=== PATIENT | female | born 1945 | race Caucasian/White ===

== ENCOUNTER → 2023-12-06 | Outpatient (CLI) | payer MEDICARE, OTHER ==
[2023-12-06 12:04] LABS: African American GFR (CKD) >90 (>60 ml/min/1.73 sqM); Blood Urea Nitrogen 16 mg/dL (7-17); Non-African American GFR(CKD) 87 (>60 ml/min/1.73 sqM)
--- NOTE | 2023-12-06 14:06 | CT ---
EXAMINATION TYPE: CT chest w con CT DLP: 290.40 mGycm, Automated exposure control for dose reduction was used. DATE OF EXAM: 12/06/2023 12:30 PM COMPARISON: Chest radiograph 09/03/2023 CLINICAL INDICATION:Female, 78 years old with history of J44.9 CHRONIC OBSTRUCTIVE PULMONARY DISEASE, UNSPE; PHH, COPD TECHNIQUE: Multiple axial images were obtained through the chest following the administration of 100 cc of Isovue 300. . Coronal and sagittal reformats reviewed. FINDINGS: LUNGS/ PLEURA: No pleural effusion, pneumothorax, or focal consolidation. Moderate centrilobular emph ysematous changes. No suspicious pulmonary nodule or mass. AIRWAY: Patent and unremarkable.. HEART: Mildly enlarged. Trace pericardial effusion anteriorly. MEDIASTINUM: A few enlarged mediastinal lymph nodes with examples including a subcarinal lymph node m easuring 1.2 cm short axis (series 3, image 32) and right superior right hilar lymph node measuring 1 .3 cm short axis (series 3, image 29). VASCULATURE: Atherosclerotic calcification of the aorta and is branches. Ascending thoracic aortic a neurysm measuring up to 4.6 cm. No extension into the aortic arch. The descending thoracic aorta moises ures up to 2.5 cm. The aortic root measures up to 3.7 cm. No evidence of pulmonary embolism. There is dilatation of main pulmonary artery measuring up to 3.6 cm. MUSCULOSKELETAL: No acute osseous abnormalities. No aggressive osseous lesion. SOFT TISSUES/LYMPH NODES: Unremarkable. LOWER NECK: No significant findings. UPPER ABDOMEN: Left hepatic lobe 1.1 cm cyst. Retrocaval left renal vein. IMPRESSION: 1. No acute thoracic process. 2. Moderate COPD changes. 3. Ascending thoracic aortic aneurysm measuring up to 4.6 cm. 4. Nonspecific enlarged mediastinal and right hilar lymph nodes. 5. Dilated main pulmonary artery which could be seen in the setting of pulmonary arterial hypertensio n.
== END | disposition home or self-care (01) ==
LOC: RADCTMAIN 11:14
PROVIDERS: ATTEND Internal Medicine Critical Care Medicine
DX: J44.9 Chronic obstructive pulmonary disease, unspecified (principal); I71.21 Aneurysm of the ascending aorta, without rupture
CPT/HCPCS: 82565; 84520; 71260; 36415; Q9967

== ENCOUNTER 2024-08-30 14:23 | Inpatient (IN) | payer MEDICARE, OTHER ==
--- NOTE | 2024-08-30 15:06 | ED ---
General Adult HPI - General Chief complaint: Shortness of Breath Stated complaint: SOB Time Seen by Provider: 08/30/24 14:41 Source: patient Mode of arrival: ambulatory Limitations: no limitations - History of Present Illness Initial comments: Patient is an 78-year-old female past medical history of COPD on home 3 L oxygen nasal cannula, alpha-1 antitrypsin deficiency presenting today at the direction of her capture manager, Dr. Parnell for shortness of breath and hypoxemia. History provided by friend and patient at bedside they state that patient has had worsening lower extremity swelling and shortness of breath ever since having RSV 2 months ago. She was seen by her capture manager Dr. Riggs and today when she had a pulse ox of 78% while in the office and was sent here for further evaluation and admission. Of note discharge summary from Dr. Riggs in's office states that patient should have an ultrasound of the lower extremities, CT PE study if kidney function tolerates, Lasix if kidney function allows, steroids, breathing treatments. Patient is not on blood thinners. No history of prior PE. - Related Data Home Medications Medication Instructions Recorded Confirmed ALPRAZolam [Xanax] 0.25 - 0.5 mg PO BID PRN 08/30/24 08/30/24 Albuterol Nebulized [Ventolin 2.5 mg INHALATION RT-QID 08/30/24 08/30/24 Nebulized] Albuterol Sulfate [Albuterol 2 puff PO RT-Q4H PRN 08/30/24 08/30/24 Sulfate Hfa] Budesonide [Pulmicort] 0.5 mg INHALATION RT-BID 08/30/24 08/30/24 Escitalopram Oxalate [Lexapro] 10 mg PO HS 08/30/24 08/30/24 Formoterol Fumarate [Perforomist] 20 mcg INHALATION RT-BID 08/30/24 08/30/24 Losartan-Hctz 50-12.5 mg [Hyzaar 1 tab PO HS 08/30/24 08/30/24 50-12.5] NIFEdipine XL [Procardia Xl] 30 mg PO HS 08/30/24 08/30/24 Yupelri 175mcg/3ml 175 mcg INHALATION RT-DAILY 08/30/24 08/30/24 Allergies Allergy/AdvReac Type Severity Reaction Status Date / Time Penicillins Allergy red streak Verified 08/30/24 17:43 up back of neck lorazepam [From Ativan] AdvReac pain all Verified 08/30/24 17:43 over & insomnia prednisolone AdvReac insomnia Verified 08/30/24 17:43 Review of Systems ROS Statement: Those systems with pertinent positive or pertinent negative responses have been documented in the HPI. ROS Other: All systems not noted in ROS Statement are negative. Past Medical History Past Medical History: COPD, Hypertension History of Any Multi-Drug Resistant Organisms: None Reported Past Surgical History: No Surgical Hx Reported Past Psychological History: No Psychological Hx Reported Smoking Status: Former smoker Past Alcohol Use History: None Reported Past Drug Use History: None Reported General Exam Limitations: no limitations Course Vital Signs 08/30/24 08/30/24 08/30/24 14:36 15:05 15:11 Temperature 98.7 F Pulse Rate 86 74 Respiratory 17 Rate Blood Pressure 109/72 O2 Sat by Pulse 78 L 95 Oximetry Fraction of 60 Inspired Oxygen (FIO2) 08/30/24 08/30/24 08/30/24 15:16 15:36 15:45 Temperature Pulse Rate 74 74 78 Respiratory 20 Rate Blood Pressure 102/76 O2 Sat by Pulse 91 L Oximetry Fraction of Inspired Oxygen (FIO2) 08/30/24 08/30/24 08/30/24 17:00 18:00 19:00 Temperature Pulse Rate 74 79 84 Respiratory 22 24 22 Rate Blood Pressure 113/73 119/80 134/70 O2 Sat by Pulse 94 L 91 L 92 L Oximetry Fraction of Inspired Oxygen (FIO2) 08/30/24 08/30/24 20:15 20:40 Temperature Pulse Rate 86 Respiratory 18 Rate Blood Pressure 110/85 O2 Sat by Pulse 91 L 89 L Oximetry Fraction of 61 Inspired Oxygen (FIO2) EKG Findings - EKG Comments: EKG Findings:: Significant artifact limiting interpretation, low voltage EKG, rate 75 bpm NE interval 160 ms QT/QTc 370/399 ms, borderline right axis deviation, there is no clear ST elevations or depressions no STEMI, indeterminate EKG Medical Decision Making - Medical Decision Making Was pt. sent in by a medical professional or institution (, PA, [employer], urgent care, hospital, or senior care...) When possible be specific @ -[No] Did you speak to anyone other than the patient for history (EMS, parent, family, police, friend...)? What history was obtained from this source @ -[No] Did you review nursing and triage notes (agree or disagree)? Why? @ -[I reviewed nursing and triage notes] Were old charts reviewed (outside hosp., previous admission, EMS record, old EKG, old radiological studies, urgent care reports/EKG's, senior care records)? Report findings @ -[Medical records reviewed] Differential Diagnosis (chest pain, altered mental status, abdominal pain women, abdominal pain men, vaginal bleeding, weakness, fever, dyspnea, syncope, headache, dizziness, GI bleed, back pain, seizure, CVA, palpatations, mental health, musculoskeletal)? @ -[not applicable] EKG interpreted by me (3pts min.). @ -[As above] X-rays interpreted by me (1pt min.). @ -[None done] CT interpreted by me (1pt min.). @ -[None done] U/S interpreted by me (1pt. min.). @ -[None done] What testing was considered but not performed or refused? (CT, X-rays, U/S, labs)? Why? @ -[None] What meds were considered but not given or refused? Why? @ -[None] Did you discuss the management of the patient with other professionals (professionals i.e. , PA, [employer], lab, RT, psych nurse, social work lecturer, packerhead machine operator, teacher, building drafting officer, patient case manager)? Give summary @ -[No] Was smoking cessation discussed for >3mins.? @ -[No] Was critical care preformed (if so, how long)? @ -[No] Were there social determinants of health that impacted care today? How? (Homelessness, low income, unemployed, alcoholism, drug addiction, transportatio n, low edu. Level, literacy, decrease access to med. care, [facility], rehab)? @ -[No] Was there de-escalation of care discussed even if they declined (Discuss DNR or withdrawal of care, Hospice)? @ -[No] What co-morbidities impacted this encounter? (DM, HTN, Smoking, COPD, CAD, Cancer, CVA, ARF, Chemo, Hep., AIDS, mental health diagnosis, sleep apnea, morbid obesity)? @ -[None] Was patient admitted / discharged? Hospital course, mention meds given and route, prescriptions, significant lab abnormalities, going to OR and other pertinent info. @ -[hospital course] this is an 78-year-old female past medical history of COPD on oxygen 3 L nasal cannula at baseline, no known history of CHF presenting t pan for CT PE significant negative for pulmonary embolism, of note I did discuss with Dr. Durant there is a's soft tissue mass on the right lateral neck, was present on a previous CT scan as well. No, from radiologist, patient does have a soft palpable mobile mass on exam without overlying erythema, tenderness to palpation or bruit. Patient will be admitted for new onset congestive heart failure. Treated with L 80 mg IV Lasix Undiagnosed new problem with uncertain prognosis? @ -[No] Drug Therapy requiring intensive monitoring for toxicity (Heparin, Nitro, Insulin, Cardizem)? @ -[No] Were any procedures done? @ -[No] Diagnosis/symptom? @ -[default] Acute, or Chronic, or Acute on Chronic? @ -[default] Uncomplicated (without systemic symptoms) or Complicated (systemic symptoms)? @ -[default] Side effects of treatment? @ -[No] Exacerbation, Progression, or Severe Exacerbation? @ -[No] Poses a threat to life or bodily function? How? (Chest pain, USA, PR, pneumonia, PE, COPD, DKA, ARF, appy, cholecystitis, CVA, Diverticulitis, Homicidal, Suicidal, threat to staff... and all critical care pts) @ -[No] - Lab Data Result diagrams: 08/30/24 14:56 08/30/24 14:56 Lab Results 08/30/24 08/30/24 08/30/24 Range/Units 14:56 14:56 14:56 WBC 10.2 (3.8-10.6) k/uL RBC 5.72 H (3.80-5.40) m/uL Hgb 18.1 H (11.4-16.0) gm/dL Hct 55.4 H (34.0-46.0) % MCV 96.9 (80.0-100.0) fL MCH 31.6 (25.0-35.0) pg MCHC 32.6 (31.0-37.0) g/dL RDW 15.5 (11.5-15.5) % Plt Count 155 (150-450) k/uL MPV 9.2 Neutrophils % 89 % Lymphocytes % 4 % Monocytes % 5 % Eosinophils % 0 % Basophils % 0 % Neutrophils # 9.1 H (1.3-7.7) k/uL Lymphocytes # 0.4 L (1.0-4.8) k/uL Monocytes # 0.5 (0-1.0) k/uL Eosinophils # 0.0 (0-0.7) k/uL Basophils # 0.0 (0-0.2) k/uL Hypochromasia Slight PT 14.1 H (10.0-12.5) sec INR 1.3 H (<1.2) APTT 24.5 (22.0-30.0) sec Sodium 137 (137-145) mmol/L Potassium 3.6 (3.5-5.1) mmol/L Chloride 97 L (98-107) mmol/L Carbon Dioxide 29 (22-30) mmol/L Anion Gap 11 mmol/L BUN 39 H (7-17) mg/dL Creatinine 0.71 (0.52-1.04) mg/dL Est GFR (CKD-EPI)AfAm >90 (>60 ml/min/1.73 sqM) Est GFR (CKD-EPI)NonAf 81 (>60 ml/min/1.73 sqM) Glucose 112 H (74-99) mg/dL Lactic Ac Sepsis Rflx Plasma Lactic Acid Juan Luis (0.7-2.0) mmol/L Calcium 9.2 (8.4-10.2) mg/dL Magnesium 1.9 (1.6-2.3) mg/dL Total Bilirubin 1.9 H (0.2-1.3) mg/dL AST 26 (14-36) U/L ALT 16 (4-34) U/L Alkaline Phosphatase 81 (38-126) U/L Troponin I (0.000-0.034) ng/mL NT-Pro-B Natriuret Pep 76570 pg/mL Total Protein 6.9 (6.3-8.2) g/dL Albumin 3.8 (3.5-5.0) g/dL 08/30/24 08/30/24 08/30/24 Range/Units 14:56 14:56 15:27 WBC (3.8-10.6) k/uL RBC (3.80-5.40) m/uL Hgb (11.4-16.0) gm/dL Hct (34.0-46.0) % MCV (80.0-100.0) fL MCH (25.0-35.0) pg MCHC (31.0-37.0) g/dL RDW (11.5-15.5) % Plt Count (150-450) k/uL MPV Neutrophils % % Lymphocytes % % Monocytes % % Eosinophils % % Basophils % % Neutrophils # (1.3-7.7) k/uL Lymphocytes # (1.0-4.8) k/uL Monocytes # (0-1.0) k/uL Eosinophils # (0-0.7) k/uL Basophils # (0-0.2) k/uL Hypochromasia PT (10.0-12.5) sec INR (<1.2) APTT (22.0-30.0) sec Sodium (137-145) mmol/L Potassium (3.5-5.1) mmol/L Chloride (98-107) mmol/L Carbon Dioxide (22-30) mmol/L Anion Gap mmol/L BUN (7-17) mg/dL Creatinine (0.52-1.04) mg/dL Est GFR (CKD-EPI)AfAm (>60 ml/min/1.73 sqM) Est GFR (CKD-EPI)NonAf (>60 ml/min/1.73 sqM) Glucose (74-99) mg/dL Lactic Ac Sepsis Rflx Y Plasma Lactic Acid Juan Luis 2.8 H* (0.7-2.0) mmol/L Calcium (8.4-10.2) mg/dL Magnesium (1.6-2.3) mg/dL Total Bilirubin (0.2-1.3) mg/dL AST (14-36) U/L ALT (4-34) U/L Alkaline Phosphatase (38-126) U/L Troponin I 0.021 (0.000-0.034) ng/mL NT-Pro-B Natriuret Pep pg/mL Total Protein (6.3-8.2) g/dL Albumin (3.5-5.0) g/dL 08/30/24 08/30/24 Range/Units 16:33 18:22 WBC (3.8-10.6) k/uL RBC (3.80-5.40) m/uL Hgb (11.4-16.0) gm/dL Hct (34.0-46.0) % MCV (80.0-100.0) fL MCH (25.0-35.0) pg MCHC (31.0-37.0) g/dL RDW (11.5-15.5) % Plt Count (150-450) k/uL MPV Neutrophils % % Lymphocytes % % Monocytes % % Eosinophils % % Basophils % % Neutrophils # (1.3-7.7) k/uL Lymphocytes # (1.0-4.8) k/uL Monocytes # (0-1.0) k/uL Eosinophils # (0-0.7) k/uL Basophils # (0-0.2) k/uL Hypochromasia PT 12.5 (10.0-12.5) sec INR 1.2 H (<1.2) APTT 23.4 (22.0-30.0) sec Sodium (137-145) mmol/L Potassium (3.5-5.1) mmol/L Chloride (98-107) mmol/L Carbon Dioxide (22-30) mmol/L Anion Gap mmol/L BUN (7-17) mg/dL Creatinine (0.52-1.04) mg/dL Est GFR (CKD-EPI)AfAm (>60 ml/min/1.73 sqM) Est GFR (CKD-EPI)NonAf (>60 ml/min/1.73 sqM) Glucose (74-99) mg/dL Lactic Ac Sepsis Rflx Plasma Lactic Acid Juan Luis 2.9 H* (0.7-2.0) mmol/L Calcium (8.4-10.2) mg/dL Magnesium (1.6-2.3) mg/dL Total Bilirubin (0.2-1.3) mg/dL AST (14-36) U/L ALT (4-34) U/L Alkaline Phosphatase (38-126) U/L Troponin I (0.000-0.034) ng/mL NT-Pro-B Natriuret Pep pg/mL Total Protein (6.3-8.2) g/dL Albumin (3.5-5.0) g/dL Disposition Clinical Impression: New onset of congestive heart failure Disposition: ADMITTED IP TO THIS HOSP Condition: Stable
[2024-08-30] MEDS: IPRATROPIUM 0.5 MG/2.5 ML NEBU INHALATION STA (15:14)
[2024-08-30] MEDS: ALBUTEROL NEBULIZED 2.5 MG/3 ML INHALATION STA (15:14)
[2024-08-30 15:19] LABS: INR 1.3 (<1.2); Partial Thromboplastin Time 24.5 sec (22.0-30.0); Prothrombin Time 14.1 sec (10.0-12.5)
[2024-08-30 15:30] LABS: ALT 16 U/L (4-34); AST 26 U/L (14-36); African American GFR (CKD) >90 (>60 ml/min/1.73 sqM); Albumin 3.8 g/dL (3.5-5.0); Alkaline Phosphatase 81 U/L (38-126); Anion Gap 11 mmol/L; Blood Urea Nitrogen 39 mg/dL (7-17); Calcium 9.2 mg/dL (8.4-10.2); Carbon Dioxide 29 mmol/L (22-30); Chloride 97 mmol/L (98-107); Glucose 112 mg/dL (74-99); Magnesium 1.9 mg/dL (1.6-2.3); Non-African American GFR(CKD) 81 (>60 ml/min/1.73 sqM); Potassium 3.6 mmol/L (3.5-5.1); Sodium 137 mmol/L (137-145); Total Bilirubin 1.9 mg/dL (0.2-1.3); Total Protein 6.9 g/dL (6.3-8.2)
[2024-08-30 15:35] LABS: Basophils % (A) 0 %; Eosinophils % (A) 0 %; HGB 18.1 gm/dL (11.4-16.0); Hypochromasia Slight; Lymphocytes # (A) 0.4 k/uL (1.0-4.8); Lymphocytes % (A) 4 %; MCH 31.6 pg (25.0-35.0); MCHC 32.6 g/dL (31.0-37.0); MCV 96.9 fL (80.0-100.0); Mean Platelet Volume 9.2; Monocytes # (A) 0.5 k/uL (0-1.0); Monocytes % (A) 5 %; Neutrophils # (A) 9.1 k/uL (1.3-7.7); Neutrophils % (A) 89 %; Platelet Count 155 k/uL (150-450); RBC 5.72 m/uL (3.80-5.40); RDW 15.5 % (11.5-15.5); WBC 10.2 k/uL (3.8-10.6)
[2024-08-30 15:36] LABS: NT-Pro-B-Type Natriuretic Pept 14100 pg/mL
[2024-08-30 15:45] LABS: HCT 55.4 % (34.0-46.0)
[2024-08-30] MEDS: methylPREDNISolone SOD SUCCI 125 MG/2 ML VIAL IV STA (15:53)
[2024-08-30] MEDS: LORazepam 2 MG/ML INJ IV STA (15:54)
--- NOTE | 2024-08-30 16:12 | XR ---
EXAMINATION TYPE: XR chest 1V portable DATE OF EXAM: 08/30/2024 COMPARISON: Chest CT December 06, 2023 CLINICAL INDICATION: Female, 78 years old with history of LETY, edema; TECHNIQUE: Single frontal view of the chest is obtained. FINDINGS: Background chronic emphysematous change with new left basilar opacity. Right lung shows la teral right basilar linear atelectasis. Persisting cardiomegaly with atherosclerotic thoracic aorta. Osseous structures are intact. IMPRESSION: Cardiomegaly with small left pleural effusion and left basilar acute infiltrate and/or a telectasis noted. [facility], , 08/30/2024 4:10 PM
[2024-08-30 17:04] LABS: INR 1.2 (<1.2); Partial Thromboplastin Time 23.4 sec (22.0-30.0); Prothrombin Time 12.5 sec (10.0-12.5)
[2024-08-30] MEDS: FUROSEMIDE 10 MG/ML 10 ML VIAL IV STA (17:18)
--- NOTE | 2024-08-30 17:36 | CT ---
EXAMINATION TYPE: CT chest angio for PE DATE OF EXAM: 08/30/2024 COMPARISON: Chest CT December 06, 2023 CLINICAL INDICATION: Female, 78 years old with history of new LE edema, [id number] def., , TECHNIQUE: CTA scan of the thorax is performed with IV Contrast, patient injected with 80 mL of Isovue 370, pulm onary embolism protocol. MIP Images are created on CT scanner and reviewed. CT DLP: 280 mGycm. Automated Exposure Control for Dose Reduction was Utilized. FINDINGS: LUNGS: Moderate to advanced underlying emphysematous change is redemonstrated. There is new small lef t pleural effusion with associated compressive atelectasis in the left lung base. Right lung is clear . There is posterior basilar consolidation/atelectasis seen. HEART: Heart size mildly enlarged. There is moderate atrial dilatation. Moderate coronary artery calc ification is redemonstrated. Reflux of contrast into the hepatic veins and IVC suggests right heart f ailure. MEDIASTINUM: There is satisfactory enhancement of the pulmonary artery and its branches, there is no CT evidence for pulmonary embolism. There is a [id number] sized pericardial effusion measurin g up to 1.5 cm in thickness on axial image 116. There is an ascending aortic aneurysm up to 4.4 cm re demonstrated. Prominent pulmonary arteries raising concern for underlying pulmonary artery hypertensi on. OTHER: There is new moderate diffuse subcutaneous edema. IMPRESSION: 1. No CT evidence for acute pulmonary embolism. 2. New moderate dependent subcutaneous edema and new small left pleural effusion. Findings suggest CH F exacerbation/fluid overload state. 3. There is moderate to severe underlying emphysematous change redemonstrated. There is more prominen t small to moderate sized pericardial effusion on current study. [facility], , 08/30/2024 5:33 PM
--- NOTE | 2024-08-30 18:31 | US ---
EXAMINATION TYPE: US venous doppler duplex LE BI DATE OF EXAM: 08/30/2024 2:57 PM COMPARISON: CT chest CLINICAL INDICATION: Female, 78 years old with history of new LE edema; Pitting edema. Patient states she is retaining a lot of fluid. No hx dvt. Not on thinners. No pain or redness TECHNIQUE: The lower extremity deep venous system is examined utilizing real time linear array sonog karen with graded compression, color doppler sonography, and spectral doppler. SIDE PERFORMED: Bilateral FINDINGS: VESSELS IMAGED: Common Femoral Vein Deep Femoral Vein Greater Saphenous Vein * Femoral Vein Popliteal Vein Small Saphenous Vein * Proximal Calf Veins (* superficial vessels) exam somewhat limited due to edema Right Leg: Negative for DVT, Color Doppler imaging shows patency of the vessels. Spectral waveforms are within normal limits. Left Leg: Negative for DVT, Color Doppler imaging shows patency of the vessels. Spectral waveforms a re within normal limits. Some subcutaneous edema is present distally. IMPRESSION: No ultrasound evidence for acute deep venous thrombosis. [facility], , 08/30/2024 6:29 PM
[2024-08-30] MEDS ORDERED: ALBUTEROL NEBULIZED 2.5 MG/3 ML INHALATION PRN (20:15)
[2024-08-30] MEDS: ALPRAZolam 0.25 MG TAB PO STA (23:37)
[2024-08-30] MEDS: NIFEdipine XL 30 MG TAB.ER.24 PO SCH (23:39)
[2024-08-30] MEDS: ESCITALOPRAM 10 MG TAB PO SCH (23:39)
[2024-08-31] MEDS: ACETAMINOPHEN TAB 325 MG TAB PO PRN (02:47)
[2024-08-31] MEDS: ONDANSETRON 4 MG/2 ML VIAL IVP PRN (02:47)
[2024-08-31] MEDS: FUROSEMIDE 10 MG/ML 4 ML VIAL IV SCH (06:07)
--- NOTE | 2024-08-31 07:15 | P.CRDCN ---
History of Present Illness Consult date: 08/31/24 History of present illness: This is an 78-year-old female patient with no prior cardiac history but medical history significant for chronic hypoxic respiratory failure secondary to COPD and alpha 1 antitrypsin deficiency presented to the hospital with progressive exertional dyspnea associated with progressive bilateral lower extremity edema for the last few days. No symptoms of chest pain or chest discomfort but she felt she was experiencing severe congestions with no fever and no chills and no cough and no sputum production. No other cardiovascular symptoms of dizziness or lightheadedness or any feeling of heart racing or fluttering or presyncope or syncope. She developed severe bilateral lower extremities edema. When she presented to the hospital she was hypoxic requiring high flow oxygen. Normally she is on 2 L of oxygen continuously. Definitely her oxygen requirement has increased within the last few days and she has been doing pulse oximetry at home and noticed that her oxygen saturation has been low. She underwent further evaluation including EKG showing RBBB. NT proBNP came to be elevated at 5000. First set of troponin is unremarkable with chest x-ray showed finding consistent with pulmonary vascular congestions and left pleural effusion but CT scan of the chest showed no evidence of PE. Venous duplex study showed no evidence of DVT as well. The physical examination is remarkable for regular rhythm with a systolic murmur at the right and left upper sternal border with diminished breathing sounds bilaterally and bilateral rhonchi and severe bilateral lower extremities pitting edema Assessment Acute on chronic hypoxic respiratory failure Heart failure of unknown etiology with evidence of right and left failure History of hypoxic respiratory failure Multiple comorbid conditions Plan Continue the current dose of Lasix IV Hold Procardia and any blood pressure medications giving that she is having marginally low blood pressure Obtain echocardiogram with Doppler Obtain serial cardiac enzymes to rule out acute coronary syndrome Follow-up with the patient Past Medical History Past Medical History: COPD, Hypertension History of Any Multi-Drug Resistant Organisms: None Reported Past Surgical History: No Surgical Hx Reported Past Anesthesia/Blood Transfusion Reactions: No Reported Reaction Past Psychological History: Anxiety Smoking Status: Former smoker Past Alcohol Use History: None Reported Past Drug Use History: None Reported Medications and Allergies Home Medications Medication Instructions Recorded Confirmed Type ALPRAZolam [Xanax] 0.25 - 0.5 mg PO BID PRN 08/30/24 08/30/24 History Albuterol Nebulized [Ventolin 2.5 mg INHALATION RT-QID 08/30/24 08/30/24 History Nebulized] Albuterol Sulfate [Albuterol 2 puff PO RT-Q4H PRN 08/30/24 08/30/24 History Sulfate Hfa] Budesonide [Pulmicort] 0.5 mg INHALATION RT-BID 08/30/24 08/30/24 History Escitalopram Oxalate [Lexapro] 10 mg PO HS 08/30/24 08/30/24 History Formoterol Fumarate [Perforomist] 20 mcg INHALATION RT-BID 08/30/24 08/30/24 History Losartan-Hctz 50-12.5 mg [Hyzaar 1 tab PO HS 08/30/24 08/30/24 History 50-12.5] NIFEdipine XL [Procardia Xl] 30 mg PO HS 08/30/24 08/30/24 History Yupelri 175mcg/3ml 175 mcg INHALATION RT-DAILY 08/30/24 08/30/24 History Allergies Allergy/AdvReac Type Severity Reaction Status Date / Time Penicillins Allergy red streak Verified 08/30/24 17:43 up back of neck lorazepam [From Ativan] AdvReac pain all Verified 08/30/24 17:43 over & insomnia prednisolone AdvReac insomnia Verified 08/30/24 17:43 Physical Exam Vitals: Vital Signs Temp Pulse Pulse Resp BP BP Pulse Ox 08/31/24 04:11 90 L 08/31/24 03:06 97.7 F 85 22 98/63 89 L 08/31/24 00:06 91 L 08/30/24 23:32 97.4 F L 86 24 104/70 91 L 08/30/24 22:39 98.1 F 84 24 121/73 91 L 08/30/24 20:40 86 18 110/85 89 L 08/30/24 20:15 91 L 08/30/24 19:00 84 22 134/70 92 L 08/30/24 18:00 79 24 119/80 91 L 08/30/24 17:00 74 22 113/73 94 L 08/30/24 15:45 78 20 102/76 91 L 08/30/24 15:36 74 08/30/24 15:16 74 08/30/24 15:11 74 95 08/30/24 15:05 08/30/24 14:36 98.7 F 86 17 109/72 78 L FiO2 08/31/24 04:11 70 08/31/24 03:06 60 08/31/24 00:06 58 08/30/24 23:32 60 08/30/24 22:39 08/30/24 20:40 08/30/24 20:15 61 08/30/24 19:00 08/30/24 18:00 08/30/24 17:00 08/30/24 15:45 08/30/24 15:36 08/30/24 15:16 08/30/24 15:11 08/30/24 15:05 60 08/30/24 14:36 Intake and Output 08/30/24 08/31/24 08/31/24 22:59 06:59 14:59 Intake Total 237 Output Total 350 Balance 237 -350 Intake: Oral 237 Output: Urine 350 Other: Voiding Method External Catheter Weight 76.657 kg 76.5 kg Results 08/30/24 14:56 08/30/24 14:56 Cardiac Enzymes 08/30/24 08/30/24 Range/Units 14:56 14:56 AST 26 (14-36) U/L Troponin I 0.021 (0.000-0.034) ng/mL Coagulation 08/30/24 08/30/24 Range/Units 14:56 16:33 PT 14.1 H 12.5 (10.0-12.5) sec APTT 24.5 23.4 (22.0-30.0) sec CBC 08/30/24 Range/Units 14:56 WBC 10.2 (3.8-10.6) k/uL RBC 5.72 H (3.80-5.40) m/uL Hgb 18.1 H (11.4-16.0) gm/dL Hct 55.4 H (34.0-46.0) % Plt Count 155 (150-450) k/uL Comprehensive Metabolic Panel 08/30/24 Range/Units 14:56 Sodium 137 (137-145) mmol/L Potassium 3.6 (3.5-5.1) mmol/L Chloride 97 L (98-107) mmol/L Carbon Dioxide 29 (22-30) mmol/L BUN 39 H (7-17) mg/dL Creatinine 0.71 (0.52-1.04) mg/dL Glucose 112 H (74-99) mg/dL Calcium 9.2 (8.4-10.2) mg/dL AST 26 (14-36) U/L ALT 16 (4-34) U/L Alkaline Phosphatase 81 (38-126) U/L Total Protein 6.9 (6.3-8.2) g/dL Albumin 3.8 (3.5-5.0) g/dL Current Medications Generic Name Dose Route Start Last Admin Trade Name Freq PRN Reason Stop Dose Admin Acetaminophen 325 mg 08/31/24 02:37 08/31/24 02:47 Acetaminophen Tab 325 Mg Tab PO 325 mg Q6HR PRN Administration Fever and/ or Pain Albuterol Sulfate 2.5 mg 08/31/24 08:00 Albuterol Nebulized 2.5 Mg/3 Ml INHALATION RT-QID CASIE Albuterol Sulfate 2.5 mg 08/30/24 20:15 Albuterol Nebulized 2.5 Mg/3 Ml INHALATION RT-Q4H PRN Shortness Of Breath Alprazolam 0.25 mg 08/30/24 20:15 Alprazolam 0.25 Mg Tab PO BID PRN Anxiety Budesonide 0.5 mg 08/31/24 08:00 Budesonide 0.5 Mg/2 Ml Nebu INHALATION RT-BID CASIE Escitalopram Oxalate 10 mg 08/30/24 21:00 08/30/24 23:39 Escitalopram 10 Mg Tab PO 10 mg HS CASIE Administration Formoterol Fumarate 20 mcg 08/31/24 08:00 Formoterol Fumarate 20 Mcg/2 Ml Nebu INHALATION RT-BID CASIE Furosemide 40 mg 08/31/24 06:00 08/31/24 06:07 Furosemide 10 Mg/Ml 4 Ml Vial IV 40 mg Q12H CASIE Administration Nifedipine 30 mg 08/30/24 21:00 08/30/24 23:39 Nifedipine Xl 30 Mg Tab.Er.24 PO 30 mg HS CASIE Administration Ondansetron HCl 4 mg 08/31/24 02:37 08/31/24 02:47 Ondansetron 4 Mg/2 Ml Vial IVP 4 mg Q6HR PRN Administration Nausea And Vomiting Petrolatum 1 applic 08/31/24 01:21 Zinc Oxide Paste (Z-Guard) 1 Applic TOPICAL Q2HR PRN Wound Healing Protocol Intake and Output 08/30/24 08/31/24 08/31/24 22:59 06:59 14:59 Intake Total 237 Output Total 350 Balance 237 -350 Intake: Oral 237 Output: Urine 350 Other: Voiding Method External Catheter Weight 76.657 kg 76.5 kg 08/30/24 14:56 08/30/24 14:56
[2024-08-31 08:21] LABS: Basophils % (A) 0 %; Eosinophils % (A) 0 %; HCT 53.3 % (34.0-46.0); HGB 16.9 gm/dL (11.4-16.0); Hypochromasia Slight; Lymphocytes # (A) 0.4 k/uL (1.0-4.8); Lymphocytes % (A) 7 %; MCH 30.5 pg (25.0-35.0); MCHC 31.7 g/dL (31.0-37.0); MCV 96.4 fL (80.0-100.0); Monocytes # (A) 0.4 k/uL (0-1.0); Monocytes % (A) 6 %; Neutrophils # (A) 5.6 k/uL (1.3-7.7); Neutrophils % (A) 86 %; Platelet Count 186 k/uL (150-450); RBC 5.52 m/uL (3.80-5.40); RDW 15.5 % (11.5-15.5); WBC 6.5 k/uL (3.8-10.6)
[2024-08-31] MEDS: BUDESONIDE 0.5 MG/2 ML NEBU INHALATION SCH (08:41)
[2024-08-31] MEDS: ALBUTEROL NEBULIZED 2.5 MG/3 ML INHALATION SCH (08:41)
[2024-08-31] MEDS: FORMOTEROL FUMARATE 20 MCG/2 ML NEBU INHALATION SCH (08:41)
[2024-08-31 08:44] LABS: African American GFR (CKD) 84 (>60 ml/min/1.73 sqM); Anion Gap 8 mmol/L; Blood Urea Nitrogen 39 mg/dL (7-17); Calcium 8.7 mg/dL (8.4-10.2); Carbon Dioxide 30 mmol/L (22-30); Chloride 98 mmol/L (98-107); Glucose 174 mg/dL (74-99); Non-African American GFR(CKD) 73 (>60 ml/min/1.73 sqM); Potassium 3.6 mmol/L (3.5-5.1); Sodium 136 mmol/L (137-145)
[2024-08-31] MEDS ORDERED: HEPARIN SODIUM 1,000 UN/ML (10ML VL) IV PRN (09:02)
[2024-08-31] MEDS: HEPARIN SODIUM 1,000 UN/ML (10ML VL) IV ONE (09:17)
[2024-08-31] MEDS: HEPARIN SOD,PORK IN 0.45% NACL 25,000 UNIT in 0.45% NACL 1 250ML.BAG IV SCH (09:17)
[2024-08-31] MEDS: ZINC OXIDE PASTE (Z-GUARD) 1 APPLIC TOPICAL PRN (09:24)
[2024-08-31 09:40] LABS: Basophils % (A) 0 %; Eosinophils % (A) 0 %; HCT 51.5 % (34.0-46.0); HGB 16.3 gm/dL (11.4-16.0); Hypochromasia Slight; Lymphocytes # (A) 0.4 k/uL (1.0-4.8); Lymphocytes % (A) 6 %; MCH 30.6 pg (25.0-35.0); MCHC 31.6 g/dL (31.0-37.0); Mean Platelet Volume 8.6; Monocytes # (A) 0.6 k/uL (0-1.0); Monocytes % (A) 8 %; Neutrophils # (A) 6.3 k/uL (1.3-7.7); Neutrophils % (A) 84 %; Platelet Count 195 k/uL (150-450); RBC 5.31 m/uL (3.80-5.40); RDW 15.5 % (11.5-15.5); WBC 7.5 k/uL (3.8-10.6)
[2024-08-31 10:05] LABS: INR 1.7 (<1.2); Prothrombin Time 17.6 sec (10.0-12.5)
[2024-08-31 10:17] LABS: Partial Thromboplastin Time >200.0 sec (22.0-30.0)
[2024-08-31] MEDS: MIDODRINE 5 MG TAB PO SCH (14:17)
--- NOTE | 2024-08-31 16:43 | P.HPIM ---
History of Present Illness H&P Date: 08/30/24 Chief Complaint: Shortness of breath 78-year-old female past medical history of COPD on home 3 L oxygen nasal cannula, alpha-1 antitrypsin deficiency presenting today at the direction of her talent acquisition associate, Dr. Parnell for shortness of breath and hypoxemia. History provided by friend and patient at bedside they state that patient has had worsening lower extremity swelling and shortness of breath ever since having RSV 2 months ago. She was seen by her talent acquisition associate Dr. Riggs and today when she had a pulse ox of 78% while in the office and was sent here for further abdi luation and admission. Of note discharge summary from Dr. Riggs in's office states that patient should have an ultrasound of the lower extremities, CT PE study if kidney function tolerates, Lasix if kidney function allows, steroids, breathing treatments. Patient is not on blood thinners. No history of prior PE. Blood work reveals WBC of 10.2, hemoglobin of 18.8 and platelet count of 155, sodium 137, potassium 3.6, BUNs/creatinine of 39/0.71 and blood glucose of 112, BNP of 14,100, troponin of 0.021, lactic acid of 2.8 EKG Findings: low voltage EKG, rate 75 bpm [place] interval 160 ms QT/QTc 370/399 ms, borderline right axis deviation, there is no clear ST elevations or depressions no STEMI, indeterminate EKG CT PE protocol negative for pulmonary embolism Chest x-ray reveals cardiomegaly with small pleural effusion and left basilar acute infiltrate versus atelectasis Review of Systems REVIEW OF SYSTEMS: CONSTITUTIONAL: No fever, no malaise, no fatigue. HEENT: No recent visual problems or hearing problems. Denied any sore throat. CARDIOVASCULAR: No chest pain, orthopnea, PND, no palpitations, no syncope. PULMONARY: No shortness of breath, no cough, no hemoptysis. GASTROINTESTINAL: No diarrhea, no nausea, no vomiting, no abdominal pain. NEUROLOGICAL: No headaches, no weakness, no numbness. HEMATOLOGICAL: Denies any bleeding or petechiae. GENITOURINARY: Denies any burning micturition, frequency, or urgency. MUSCULOSKELETAL/RHEUMATOLOGICAL: Denies any joint pain, swelling, or any muscle pain. ENDOCRINE: Denies any polyuria or polydipsia. The rest of the 14-point review of systems is negative. Past Medical History Past Medical History: COPD, Hypertension History of Any Multi-Drug Resistant Organisms: None Reported Past Surgical History: No Surgical Hx Reported Past Psychological History: No Psychological Hx Reported Smoking Status: Former smoker Past Alcohol Use History: None Reported Past Drug Use History: None Reported Medications and Allergies Home Medications Medication Instructions Recorded Confirmed Type ALPRAZolam [Xanax] 0.25 - 0.5 mg PO BID PRN 08/30/24 08/30/24 History Albuterol Nebulized [Ventolin 2.5 mg INHALATION RT-QID 08/30/24 08/30/24 History Nebulized] Albuterol Sulfate [Albuterol 2 puff PO RT-Q4H PRN 08/30/24 08/30/24 History Sulfate Hfa] Budesonide [Pulmicort] 0.5 mg INHALATION RT-BID 08/30/24 08/30/24 History Escitalopram Oxalate [Lexapro] 10 mg PO HS 08/30/24 08/30/24 History Formoterol Fumarate [Perforomist] 20 mcg INHALATION RT-BID 08/30/24 08/30/24 History Losartan-Hctz 50-12.5 mg [Hyzaar 1 tab PO HS 08/30/24 08/30/24 History 50-12.5] NIFEdipine XL [Procardia Xl] 30 mg PO HS 08/30/24 08/30/24 History Yupelri 175mcg/3ml 175 mcg INHALATION RT-DAILY 08/30/24 08/30/24 History Allergies Allergy/AdvReac Type Severity Reaction Status Date / Time Penicillins Allergy red streak Verified 08/30/24 17:43 up back of neck lorazepam [From Ativan] AdvReac pain all Verified 08/30/24 17:43 over & insomnia prednisolone AdvReac insomnia Verified 08/30/24 17:43 Physical Exam Vitals: Vital Signs Temp Pulse Resp BP Pulse Ox FiO2 08/30/24 18:00 79 24 119/80 91 L 08/30/24 17:00 74 22 113/73 94 L 08/30/24 15:45 78 20 102/76 91 L 08/30/24 15:36 74 08/30/24 15:16 74 08/30/24 15:11 74 95 08/30/24 15:05 60 08/30/24 14:36 98.7 F 86 17 109/72 78 L Intake and Output 08/30/24 08/30/24 08/30/24 06:59 14:59 22:59 Other: Weight 76.657 kg - Constitutional General appearance: Present: average body habitus, cooperative, no acute distress - EENT Eyes: Present: anicteric sclerae, EOMI, PERRLA, normal appearance ENT: Present: hearing grossly normal, normal oropharynx Ears: bilateral: normal - Neck Neck: Present: normal ROM. Absent: lymphadenopathy, rigidity, thyromegaly Carotids: negative: bruit present Thyroid: bilateral: normal size, negative: enlarged, nodule - Respiratory Respiratory: bilateral: CTA, negative: rales, rhonchi, wheezing - Cardiovascular Rhythm: regular Heart sounds: normal: S1, S2 Abnormal Heart Sounds: Absent: systolic murmur, diastolic murmur - Gastrointestinal General gastrointestinal: Present: normal bowel sounds, soft. Absent: distended, organomegaly, tenderness - Genitourinary Genitourinary Comment(s): deferred - Integumentary Integumentary: Present: normal turgor. Absent: jaundiced, rash, ulcer - Neurologic Neurologic: Present: CNII-XII intact. Absent: focal deficits - Musculoskeletal Musculoskeletal: Present: gait normal, strength equal bilaterally - Psychiatric Psychiatric: Present: A&O x's 3, appropriate affect, intact judgment & insight Results CBC & Chem 7: 08/31/24 09:31 08/31/24 07:28 Labs: Abnormal Lab Results - Last 24 Hours (Table) 08/30/24 08/30/24 08/30/24 Range/Units 14:56 14:56 14:56 RBC 5.72 H (3.80-5.40) m/uL Hgb 18.1 H (11.4-16.0) gm/dL Hct 55.4 H (34.0-46.0) % Neutrophils # 9.1 H (1.3-7.7) k/uL Lymphocytes # 0.4 L (1.0-4.8) k/uL PT 14.1 H (10.0-12.5) sec INR 1.3 H (<1.2) Chloride 97 L (98-107) mmol/L BUN 39 H (7-17) mg/dL Glucose 112 H (74-99) mg/dL Plasma Lactic Acid Juan Luis (0.7-2.0) mmol/L Total Bilirubin 1.9 H (0.2-1.3) mg/dL 08/30/24 08/30/24 08/30/24 Range/Units 14:56 16:33 18:22 RBC (3.80-5.40) m/uL Hgb (11.4-16.0) gm/dL Hct (34.0-46.0) % Neutrophils # (1.3-7.7) k/uL Lymphocytes # (1.0-4.8) k/uL PT (10.0-12.5) sec INR 1.2 H (<1.2) Chloride (98-107) mmol/L BUN (7-17) mg/dL Glucose (74-99) mg/dL Plasma Lactic Acid Juan Luis 2.8 H* 2.9 H* (0.7-2.0) mmol/L Total Bilirubin (0.2-1.3) mg/dL Assessment and Plan Assessment: 1. Acute on chronic hypoxic respiratory failure -Patient is placed on O2 per HFNC; titrate to keep O2 saturation greater than 90% 2. Acute exacerbation CHF; Lasix 40 mg IV every 12 hours; monitor strict KATIUSKA's and daily weight; low-salt and fluid restricted diet 3. Lactic acidosis; lactic acid of 2.1 initially which is trending down to 1.8; 4. Hypertension; patient takes losartan 50-12.5 mg daily and nifedipine XL 30 mg nightly; blood pressures currently soft; medications are placed on hold 5. COPD/asthma; not in exacerbation; patient remains on albuterol nebulizer tr eatments 4 times daily and as needed; Yupelri 175 mcg per 3 mL daily; Pulmicort inhaler twice daily; Perforomist 20 mcg twice daily 6. Anxiety/depression; Lexapro 10 mg nightly; Xanax 0.25 mg twice daily as needed 7. Possible pneumonia; chest x-ray reveals pneumonia versus atelectasis; initial lactic acid was elevated but down to 1.8 now; WBC within normal limits; will order procalcitonin DVT prophylaxis; SCDs/subcu heparin CODE STATUS; full code
--- NOTE | 2024-08-31 16:45 | P.PN ---
Subjective Progress Note Date: 08/31/24 78-year-old female past medical history of COPD on home 3 L oxygen nasal cannula, alpha-1 antitrypsin deficiency presenting today at the direction of her business development consultant, Dr. Parnell for shortness of breath and hypoxemia. History provided by friend and patient at bedside they state that patient has had wor sening lower extremity swelling and shortness of breath ever since having RSV 2 months ago. She was seen by her business development consultant Dr. Riggs and today when she had a pulse ox of 78% while in the office and was sent here for further evaluation and admission. Of note discharge summary from Dr. Riggs in's office states that patient should have an ultrasound of the lower extremities, CT PE study if kidney function tolerates, Lasix if kidney function allows, steroids, breathing treatments. Patient is not on blood thinners. No history of prior PE. Blood work reveals WBC of 10.2, hemoglobin of 18.8 and platelet count of 155, sodium 137, potassium 3.6, BUNs/creatinine of 39/0.71 and blood glucose of 112, BNP of 14,100, troponin of 0.021, lactic acid of 2.8 EKG Findings: low voltage EKG, rate 75 bpm [place] interval 160 ms QT/QTc 370/399 ms, borderline right axis deviation, there is no clear ST elevations or depressions no STEMI, indeterminate EKG CT PE protocol negative for pulmonary embolism Chest x-ray reveals cardiomegaly with small pleural effusion and left basilar a cute infiltrate versus atelectasis Objective - Vital Signs Vital signs: Vital Signs Temp 97.5 F L 08/31/24 07:35 Pulse 74 08/31/24 09:11 Resp 20 08/31/24 07:35 BP 100/66 08/31/24 07:35 Pulse Ox 92 L 08/31/24 07:35 FiO2 70 08/31/24 08:56 Intake & Output 08/30/24 08/31/24 08/31/24 18:59 06:59 18:59 Intake Total 237 120 Output Total 350 Balance -113 120 Weight 76.657 kg 76.5 kg Intake: Oral 237 120 Output: Urine 350 Other: Voiding Method External Catheter External Catheter - Exam - Constitutional General appearance: Present: average body habitus, cooperative, no acute distress - EENT Eyes: Present: anicteric sclerae, EOMI, PERRLA, normal appearance ENT: Present: hearing grossly normal, normal oropharynx Ears: bilateral: normal - Neck Neck: Present: normal ROM. Absent: lymphadenopathy, rigidity, thyromegaly Carotids: negative: bruit present Thyroid: bilateral: normal size, negative: enlarged, nodule - Respiratory Respiratory: bilateral: CTA, negative: rales, rhonchi, wheezing - Cardiovascular Rhythm: regular Heart sounds: normal: S1, S2 Abnormal Heart Sounds: Absent: systolic murmur, diastolic murmur - Gastrointestinal General gastrointestinal: Present: normal bowel sounds, soft. Absent: distended, organomegaly, tenderness - Genitourinary Genitourinary Comment(s): deferred - Integumentary Integumentary: Present: normal turgor. Absent: jaundiced, rash, ulcer - Neurologic Neurologic: Present: CNII-XII intact. Absent: focal deficits - Musculoskeletal Musculoskeletal: Present: gait normal, strength equal bilaterally - Psychiatric Psychiatric: Present: A&O x's 3, appropriate affect, intact judgment & insight - Labs CBC & Chem 7: 08/31/24 09:31 08/31/24 07:28 Labs: Abnormal Lab Results - Last 24 Hours (Table) 08/30/24 08/30/24 08/30/24 Range/Units 14:56 14:56 14:56 RBC 5.72 H (3.80-5.40) m/uL Hgb 18.1 H (11.4-16.0) gm/dL Hct 55.4 H (34.0-46.0) % Neutrophils # 9.1 H (1.3-7.7) k/uL Lymphocytes # 0.4 L (1.0-4.8) k/uL PT 14.1 H (10.0-12.5) sec INR 1.3 H (<1.2) APTT (22.0-30.0) sec Sodium (137-145) mmol/L Chloride 97 L (98-107) mmol/L BUN 39 H (7-17) mg/dL Glucose 112 H (74-99) mg/dL Plasma Lactic Acid Juan Luis (0.7-2.0) mmol/L Total Bilirubin 1.9 H (0.2-1.3) mg/dL Troponin I (0.000-0.034) ng/mL 08/30/24 08/30/24 08/30/24 Range/Units 14:56 16:33 18:22 RBC (3.80-5.40) m/uL Hgb (11.4-16.0) gm/dL Hct (34.0-46.0) % Neutrophils # (1.3-7.7) k/uL Lymphocytes # (1.0-4.8) k/uL PT (10.0-12.5) sec INR 1.2 H (<1.2) APTT (22.0-30.0) sec Sodium (137-145) mmol/L Chloride (98-107) mmol/L BUN (7-17) mg/dL Glucose (74-99) mg/dL Plasma Lactic Acid Juan Luis 2.8 H* 2.9 H* (0.7-2.0) mmol/L Total Bilirubin (0.2-1.3) mg/dL Troponin I (0.000-0.034) ng/mL 08/30/24 08/31/24 08/31/24 Range/Units 21:22 07:28 07:28 RBC 5.52 H (3.80-5.40) m/uL Hgb 16.9 H (11.4-16.0) gm/dL Hct 53.3 H (34.0-46.0) % Neutrophils # (1.3-7.7) k/uL Lymphocytes # 0.4 L (1.0-4.8) k/uL PT (10.0-12.5) sec INR (<1.2) APTT (22.0-30.0) sec Sodium 136 L (137-145) mmol/L Chloride (98-107) mmol/L BUN 39 H (7-17) mg/dL Glucose 174 H (74-99) mg/dL Plasma Lactic Acid Juan Luis 2.1 H* (0.7-2.0) mmol/L Total Bilirubin (0.2-1.3) mg/dL Troponin I (0.000-0.034) ng/mL 08/31/24 08/31/24 08/31/24 Range/Units 07:28 09:31 09:31 RBC (3.80-5.40) m/uL Hgb 16.3 H (11.4-16.0) gm/dL Hct 51.5 H (34.0-46.0) % Neutrophils # (1.3-7.7) k/uL Lymphocytes # 0.4 L (1.0-4.8) k/uL PT 17.6 H (10.0-12.5) sec INR 1.7 H (<1.2) APTT >200.0 H* (22.0-30.0) sec Sodium (137-145) mmol/L Chloride (98-107) mmol/L BUN (7-17) mg/dL Glucose (74-99) mg/dL Plasma Lactic Acid Juan Luis (0.7-2.0) mmol/L Total Bilirubin (0.2-1.3) mg/dL Troponin I 0.039 H* (0.000-0.034) ng/mL Assessment and Plan Assessment: 1. Acute on chronic hypoxic respiratory failure -Patient is placed on O2 per HFNC; titrate to keep O2 saturation greater than 90% 2. Acute exacerbation CHF; Lasix 40 mg IV every 12 hours; monitor strict KATIUSKA's and daily weight; low-salt and fluid restricted diet 3. Lactic acidosis; lactic acid of 2.1 initially which is trending down to 1.8; 4. Hypertension; patient takes losartan 50-12.5 mg daily and nifedipine XL 30 mg nightly; blood pressures currently soft; medications are placed on hold 5. COPD/asthma; not in exacerbation; patient remains on albuterol nebulizer treatments 4 times daily and as needed; Yupelri 175 mcg per 3 mL daily; Pulmicort inhaler twice daily; Perforomist 20 mcg twice daily 6. Anxiety/depression; Lexapro 10 mg nightly; Xanax 0.25 mg twice daily as needed 7. Possible pneumonia; chest x-ray reveals pneumonia versus atelectasis; initial lactic acid was elevated but down to 1.8 now; WBC within normal limits; will order procalcitonin DVT prophylaxis; SCDs/subcu heparin CODE STATUS; full code
--- NOTE | 2024-08-31 17:36 | CA ---
Transthoracic Echo Report Name: Aide Lucas Age: 78 Gender: F : 1945 Exam Date: 08/31/2024 14:44 Exam Location: [facility] Ht (in): 63 Wt (lb): 169 Ordering Physician: Micaela Anna MD Attending/Referring Phys: Office Services Assistant Ivelisse Cardenas RDCS Procedure CPT: Indications: Heart failure Cardiac Hx: Technical Quality: Fair Contrast 1: Total Dose (mL): Contrast 2: Total Dose (mL): MEASUREMENTS (Male / Female) Normal Values 2D ECHO LV Diastolic Diameter PLAX 3.5 cm 4.2 - 5.9 / 3.9 - 5.3 cm LV Systolic Diameter PLAX 2.4 cm IVS Diastolic Thickness 0.9 cm 0.6 - 1.0 / 0.6 - 0.9 cm LVPW Diastolic Thickness 1.0 cm 0.6 - 1.0 / 0.6 - 0.9 cm LV Relative Wall Thickness 0.5 LVOT Diameter 1.8 cm LV Diastolic Volume MOD 4C 49.6 cm??? LV Systolic Volume MOD 4C 15.6 cm??? LV Ejection Fraction MOD 4C 68.5 % LV Cardiac Index MOD 4C 1635.7 cm???/min???m??? LV Diastolic Length 4C 6.6 cm LV Systolic Length 4C 5.1 cm LA Volume 21.6 cm??? 18 - 58 / 22 - 52 cm??? LA Volume Index 11.5 cm???/m??? 16 - 28 cm???/m??? DOPPLER AV Peak Velocity 132.2 cm/s AV Peak Gradient 7.0 mmHg AV Mean Velocity 89.7 cm/s AV Mean Gradient 3.6 mmHg AV Velocity Time Integral 18.6 cm LVOT Peak Velocity 85.5 cm/s LVOT Peak Gradient 2.9 mmHg LVOT Velocity Time Integral 13.0 cm LVOT Stroke Volume 33.8 cm??? LVOT Stroke Volume Index 18.8 ml/m??? LVOT Cardiac Index 1624.4 cm???/min???m??? AV Area Cont Eq vti 1.8 cm??? AV Area Cont Eq pk 1.7 cm??? MV Area PHT 2.8 cm??? Mitral E Point Velocity 42.3 cm/s Mitral A Point Velocity 80.2 cm/s Mitral E to A Ratio 0.5 MV Deceleration Time 268.4 ms TR Peak Velocity 431.8 cm/s TR Peak Gradient 74.6 mmHg Right Atrial Pressure 20.0 mmHg Pulmonary Artery Systolic Pressu 94.6 mmHg Right Ventricular Systolic Press 94.6 mmHg PV Peak Velocity 75.0 cm/s PV Peak Gradient 2.3 mmHg FINDINGS Left Ventricle Left ventricular ejection fraction is estimated at 60-65 %. Left ventricular cavity size normal. Left ventricular wall thickness normal. No obvious regional wall motion abnormalities. Right Ventricle Severe right ventricular dilatation. Mildly reduced right ventricular global systolic function. Severe pulmonary hypertension. Right ventricular systolic pressure estimated at 95 mm hg. Right Atrium Severe right atrial dilatation. Left Atrium Normal left atrial size. Mitral Valve Mitral valve thickened. No evidence for mitral valve prolapse. No mitral stenosis. Trace to mild mitral regurgitation. Aortic Valve Trileaflet aortic valve. Aortic valve sclerosis. No aortic stenosis. Trace aortic regurgitation. Tricuspid Valve Structurally normal tricuspid valve. Annular dilatation of the tricuspid valve. No tricuspid stenosis. Severe tricuspid regurgitation. Pulmonic Valve Structurally normal pulmonic valve. No pulmonic stenosis. Trace pulmonic regurgitation. Pericardium Small to moderate pericardial effusion. Pleural effusion. Aorta Aortic annulus normal. Moderately dilated proximal ascending aorta (tube). CONCLUSIONS Normal LV systolic function Severe pulmonary hypertension with an RV systolic pressure of 95 mm Severely dilated right ventricle with mildly decreased RV systolic function Severe tricuspid regurgitation Previewed by: Dr. Rick Umana MD (Electronically Signed) Final Date: 31 August 2024 17:35
--- NOTE | 2024-09-01 07:17 | P.PN ---
Subjective Progress Note Date: 09/01/24 This is an 78-year-old female patient with no prior cardiac history but medical history significant for chronic hypoxic respiratory failure secondary to COPD and alpha 1 antitrypsin deficiency presented to the hospital with progressive exertional dyspnea associated with progressive bilateral lower extremity edema for the last few days. No symptoms of chest pain or chest discomfort but she felt she was experiencing severe congestions with no fever and no chills and no cough and no sputum production. No other cardiovascular symptoms of dizziness or lightheadedness or any feeling of heart racing or fluttering or presyncope or syncope. She developed severe bilateral lower extremities edema. When she presented to the hospital she was hypoxic requiring high flow oxygen. Normally she is on 2 L of oxygen continuously. Definitely her oxygen requirement has increased within the last few days and she has been doing pulse oximetry at home and noticed that her oxygen saturation has been low. She underwent further evaluation including EKG showing RBBB. NT proBNP came to be elevated at 5000. First set of troponin is unremarkable with chest x-ray showed finding consistent with pulmonary vascular congestions and left pleural effusion but CT scan of the chest showed no evidence of PE. Venous duplex study showed no evidence of DVT as well. The physical examination is remarkable for regular rhythm with a systolic murmur at the right and left upper sternal border with diminished breathing sounds bilaterally and bilateral rhonchi and severe bilateral lower extremities pitting edema September 01, 2024 The patient was seen and evaluated this morning. She is overall feeling better. She still have bilateral lower extremities edema. The pressure remains marginal but appears to be better today which she was started on midodrine yesterday. Am going to stop the midodrine and decrease the dose of Lasix from 40 mg IV twice daily to 20 mg IV twice daily giving the marginally low blood pressure and also giving the finding on the echo including severe pulmonary hypertension and moderate pericardial effusion without tamponade physiology. The physical examination is remarkable for bilateral lower extremities edema. The troponin came to be mildly abnormal and I would consider medical treatment in the absence of any chest pain. Assessment Acute on chronic hypoxic respiratory failure Heart failure of unknown etiology with evidence of right and left failure History of hypoxic respiratory failure Elevated cardiac enzymes Moderate pericardial effusion Severe pulmonary hypertension Multiple comorbid conditions Plan DC midodrine Decrease the dose of Lasix Consider medical treatment for the abnormal troponin Add aspirin to the current medical regimen Monitor the patient for additional 24 hours Objective - Vital Signs Vital signs: Vital Signs Temp 97.9 F 08/31/24 19:46 Pulse 68 09/01/24 03:52 Resp 16 09/01/24 03:52 BP 106/72 09/01/24 03:52 Pulse Ox 92 L 09/01/24 04:41 FiO2 70 09/01/24 04:41 Intake & Output 08/31/24 09/01/24 09/01/24 18:59 06:59 18:59 Intake Total 1030.686 538.965 Output Total 1050 Balance -19.314 538.965 Weight 76.5 kg 76 kg Intake: Intake, IV Titration 70.686 61.965 Amount Heparin Sod,Pork in 0.45% 70.686 61.965 NaCl 25,000 unit In 0.45 % NaCl 1 250ml.bag @ 12 UNITS/KG/HR 9.18 mls/hr IV .Q24H [facility] Rx#: [id number] Oral [id number] 477 Output: Urine 1050 Female - External 350 Other: Voiding Method External Catheter External Catheter - Labs CBC & Chem 7: 08/31/24 09:31 08/31/24 07:28 Labs: Abnormal Lab Results - Last 24 Hours (Table) 08/31/24 08/31/24 08/31/24 Range/Units 07:28 07:28 07:28 RBC 5.52 H (3.80-5.40) m/uL Hgb 16.9 H (11.4-16.0) gm/dL Hct 53.3 H (34.0-46.0) % Lymphocytes # 0.4 L (1.0-4.8) k/uL PT (10.0-12.5) sec INR (<1.2) APTT (22.0-30.0) sec Sodium 136 L (137-145) mmol/L BUN 39 H (7-17) mg/dL Glucose 174 H (74-99) mg/dL Troponin I 0.039 H* (0.000-0.034) ng/mL 08/31/24 08/31/24 08/31/24 Range/Units 09:31 09:31 15:27 RBC (3.80-5.40) m/uL Hgb 16.3 H (11.4-16.0) gm/dL Hct 51.5 H (34.0-46.0) % Lymphocytes # 0.4 L (1.0-4.8) k/uL PT 17.6 H (10.0-12.5) sec INR 1.7 H (<1.2) APTT >200.0 H* 89.2 H (22.0-30.0) sec Sodium (137-145) mmol/L BUN (7-17) mg/dL Glucose (74-99) mg/dL Troponin I (0.000-0.034) ng/mL 08/31/24 Range/Units 23:26 RBC (3.80-5.40) m/uL Hgb (11.4-16.0) gm/dL Hct (34.0-46.0) % Lymphocytes # (1.0-4.8) k/uL PT (10.0-12.5) sec INR (<1.2) APTT 60.6 H (22.0-30.0) sec Sodium (137-145) mmol/L BUN (7-17) mg/dL Glucose (74-99) mg/dL Troponin I (0.000-0.034) ng/mL
[2024-09-01 08:03] LABS: Basophils % (A) 1 %; Eosinophils # (A) 0.1 k/uL (0-0.7); Eosinophils % (A) 2 %; HCT 50.8 % (34.0-46.0); Hypochromasia Slight; Lymphocytes # (A) 0.9 k/uL (1.0-4.8); Lymphocytes % (A) 11 %; MCH 30.7 pg (25.0-35.0); MCHC 31.6 g/dL (31.0-37.0); MCV 97.2 fL (80.0-100.0); Mean Platelet Volume 9.3; Monocytes # (A) 0.7 k/uL (0-1.0); Monocytes % (A) 8 %; Neutrophils # (A) 6.1 k/uL (1.3-7.7); Neutrophils % (A) 76 %; Platelet Count 170 k/uL (150-450); RBC 5.23 m/uL (3.80-5.40); RDW 15.4 % (11.5-15.5)
[2024-09-01 08:13] LABS: INR 1.3 (<1.2); Prothrombin Time 13.9 sec (10.0-12.5)
[2024-09-01 08:16] LABS: African American GFR (CKD) 70 (>60 ml/min/1.73 sqM); Anion Gap 8 mmol/L; Blood Urea Nitrogen 40 mg/dL (7-17); Calcium 8.4 mg/dL (8.4-10.2); Carbon Dioxide 31 mmol/L (22-30); Chloride 97 mmol/L (98-107); Glucose 100 mg/dL (74-99); Non-African American GFR(CKD) 61 (>60 ml/min/1.73 sqM); Potassium 3.1 mmol/L (3.5-5.1); Sodium 136 mmol/L (137-145)
[2024-09-01] MEDS: ASPIRIN 81 MG PO SCH (08:52)
[2024-09-01] MEDS ORDERED: Potassium Replacement Protocol 1 EACH MISC MISCELLANE PRN (10:58)
[2024-09-01] MEDS: YUPELRI INHALATION SCH (11:11)
[2024-09-01] MEDS: POTASSIUM CHLORIDE ER 20 MEQ TAB.ER PO SCH (11:12)
[2024-09-01] MEDS: FUROSEMIDE 10 MG/ML 2 ML VIAL IV SCH (17:38)
--- NOTE | 2024-09-02 06:17 | P.PN ---
Subjective Progress Note Date: 09/02/24 This is an 78-year-old female patient with no prior cardiac history but medical history significant for chronic hypoxic respiratory failure secondary to COPD and alpha 1 antitrypsin deficiency presented to the hospital with progressive exertional dyspnea associated with progressive bilateral lower extremity edema for the last few days. No symptoms of chest pain or chest discomfort but she felt she was experiencing severe congestions with no fever and no chills and no cough and no sputum production. No other cardiovascular symptoms of dizziness or lightheadedness or any feeling of heart racing or fluttering or presyncope or syncope. She developed severe bilateral lower extremities edema. When she presented to the hospital she was hypoxic requiring high flow oxygen. Normally she is on 2 L of oxygen continuously. Definitely her oxygen requirement has increased within the last few days and she has been doing pulse oximetry at home and noticed that her oxygen saturation has been low. She underwent further evaluation including EKG showing RBBB. NT proBNP came to be elevated at 5000. First set of troponin is unremarkable with chest x-ray showed finding consistent with pulmonary vascular congestions and left pleural effusion but CT scan of the chest showed no evidence of PE. Venous duplex study showed no evidence of DVT as well. The physical examination is remarkable for regular rhythm with a systolic murmur at the right and left upper sternal border with diminished breathing sounds bilaterally and bilateral rhonchi and severe bilateral lower extremities pitting edema September 01, 2024 The patient was seen and evaluated this morning. She is overall feeling better. She still have bilateral lower extremities edema. The pressure remains marginal but appears to be better today which she was started on midodrine yesterday. Am going to stop the midodrine and decrease the dose of Lasix from 40 mg IV twice daily to 20 mg IV twice daily giving the marginally low blood pressure and also giving the finding on the echo including severe pulmonary hypertension and moderate pericardial effusion without tamponade physiology. The physical examination is remarkable for bilateral lower extremities edema. The troponin came to be mildly abnormal and I would consider medical treatment in the absence of any chest pain. September 02, 2024 The patient was seen and evaluated this morning. She is still hypoxic requiring high flow oxygen she still have severe bilateral lower extremities edema. Her pressure is better and with that I am going to increase the dose of Lasix to 40 mg IV twice daily which she is hypokalemic and the potassium is in process to be replaced. The physical examination is remarkable for diminished breathing sounds bilaterally and severe bilateral lower extremities edema. Assessment Acute on chronic hypoxic respiratory failure Heart failure of unknown etiology with evidence of right and left failure History of hypoxic respiratory failure Elevated cardiac enzymes Moderate pericardial effusion Severe pulmonary hypertension Multiple comorbid conditions Plan Continue the current medical regimen Increase the dose of Lasix Replace potassium Follow-up with the patient Objective - Vital Signs Vital signs: Vital Signs Temp 97.8 F 09/02/24 04:00 Pulse 67 09/02/24 04:00 Resp 20 09/02/24 04:00 BP 122/80 09/02/24 04:00 Pulse Ox 92 L 09/02/24 04:00 FiO2 65 09/02/24 04:00 Intake & Output 09/01/24 09/01/24 09/02/24 06:59 18:59 06:59 Intake Total 538.965 982.542 Output Total 1475 300 Balance 538.965 -492.458 -300 Weight 76 kg 76 kg Intake: Intake, IV Titration 61.965 59.542 Amount Heparin Sod,Pork in 0.45% 61.965 59.542 NaCl 25,000 unit In 0.45 % NaCl 1 250ml.bag @ 12 UNITS/KG/HR 9.18 mls/hr IV .Q24H [facility] Rx#: [id number] Oral 477 923 Output: Urine 1475 300 Straight 600 Other: Voiding Method External Catheter External Catheter External Catheter - Labs CBC & Chem 7: 09/01/24 06:47 09/01/24 06:47 Labs: Abnormal Lab Results - Last 24 Hours (Table) 09/01/24 09/01/24 09/01/24 Range/Units 06:47 06:47 06:47 Hct 50.8 H (34.0-46.0) % Lymphocytes # 0.9 L (1.0-4.8) k/uL PT 13.9 H (10.0-12.5) sec INR 1.3 H (<1.2) APTT (22.0-30.0) sec Sodium 136 L (137-145) mmol/L Potassium 3.1 L (3.5-5.1) mmol/L Chloride 97 L (98-107) mmol/L Carbon Dioxide 31 H (22-30) mmol/L BUN 40 H (7-17) mg/dL Glucose 100 H (74-99) mg/dL 09/01/24 Range/Units 08:59 Hct (34.0-46.0) % Lymphocytes # (1.0-4.8) k/uL PT (10.0-12.5) sec INR (<1.2) APTT 60.7 H (22.0-30.0) sec Sodium (137-145) mmol/L Potassium (3.5-5.1) mmol/L Chloride (98-107) mmol/L Carbon Dioxide (22-30) mmol/L BUN (7-17) mg/dL Glucose (74-99) mg/dL
[2024-09-02] MEDS: FUROSEMIDE 10 MG/ML 4 ML VIAL IV SCH (06:43)
[2024-09-02 08:00] LABS: African American GFR (CKD) 72 (>60 ml/min/1.73 sqM); Anion Gap 8 mmol/L; Blood Urea Nitrogen 41 mg/dL (7-17); Calcium 8.5 mg/dL (8.4-10.2); Carbon Dioxide 31 mmol/L (22-30); Chloride 96 mmol/L (98-107); Glucose 117 mg/dL (74-99); Non-African American GFR(CKD) 63 (>60 ml/min/1.73 sqM); Potassium 3.8 mmol/L (3.5-5.1); Sodium 135 mmol/L (137-145)
--- NOTE | 2024-09-02 16:24 | P.PN ---
Subjective Progress Note Date: 09/02/24 78-year-old female past medical history of COPD on home 3 L oxygen nasal cannula, alpha-1 antitrypsin deficiency presenting today at the direction of her roof technician, Dr. Parnell for shortness of breath and hypoxemia. History provided by friend and patient at bedside they state that patient has had wor sening lower extremity swelling and shortness of breath ever since having RSV 2 months ago. She was seen by her roof technician Dr. Riggs and today when she had a pulse ox of 78% while in the office and was sent here for further evaluation and admission. Of note discharge summary from Dr. Riggs in's office states that patient should have an ultrasound of the lower extremities, CT PE study if kidney function tolerates, Lasix if kidney function allows, steroids, breathing treatments. Patient is not on blood thinners. No history of prior PE. Blood work reveals WBC of 10.2, hemoglobin of 18.8 and platelet count of 155, sodium 137, potassium 3.6, BUNs/creatinine of 39/0.71 and blood glucose of 112, BNP of 14,100, troponin of 0.021, lactic acid of 2.8 EKG Findings: low voltage EKG, rate 75 bpm MN interval 160 ms QT/QTc 370/399 ms, borderline right axis deviation, there is no clear ST elevations or depressions no STEMI, indeterminate EKG CT PE protocol negative for pulmonary embolism Chest x-ray reveals cardiomegaly with small pleural effusion and left basilar a cute infiltrate versus atelectasis 09/01/2024 -- Late entry for above dated now; documentation inadvertently missed yesterday -Patient seen and evaluated in room at bedside; does not report much improvement in breathing; requesting to be seen by horse riding coach or instructor because of thickened and enlarged toenails Vital signs are reviewed and blood pressure somewhat improved after decreasing dose of Lasix Lab review shows WBC 7.5, hemoglobin of 16.3 and platelet count of 195, sodium 136, potassium 3.6, BUNs/creatinine of 39/0.77 -Cardiology recommending to continue with reduced dose of Lasix; midodrine has been discontinued -Patient would likely need further workup for elevated troponin Objective - Vital Signs Vital signs: Vital Signs Temp 97.6 F 09/02/24 08:10 Pulse 71 09/02/24 08:10 Resp 18 09/02/24 08:10 BP 113/76 09/02/24 08:10 Pulse Ox 92 L 09/02/24 08:10 FiO2 65 09/02/24 08:10 Intake & Output 09/01/24 09/02/24 09/02/24 18:59 06:59 18:59 Intake Total 982.542 222 Output Total 1475 300 Balance -492.458 -300 222 Weight 76 kg Intake: Intake, IV Titration 59.542 Amount Heparin Sod,Pork in 0.45% 59.542 NaCl 25,000 unit In 0.45 % NaCl 1 250ml.bag @ 12 UNITS/KG/HR 9.18 mls/hr IV .Q24H [facility] Rx#: [id number] Oral 923 222 Output: Urine 1475 300 Straight 600 Other: Voiding Method External Catheter External Catheter External Catheter - Exam - Constitutional General appearance: Present: average body habitus, cooperative, no acute dis tress - EENT Eyes: Present: anicteric sclerae, EOMI, PERRLA, normal appearance ENT: Present: hearing grossly normal, normal oropharynx Ears: bilateral: normal - Neck Neck: Present: normal ROM. Absent: lymphadenopathy, rigidity, thyromegaly Carotids: negative: bruit present Thyroid: bilateral: normal size, negative: enlarged, nodule - Respiratory Respiratory: bilateral: CTA, negative: rales, rhonchi, wheezing - Cardiovascular Rhythm: regular Heart sounds: normal: S1, S2 Abnormal Heart Sounds: Absent: systolic murmur, diastolic murmur - Gastrointestinal General gastrointestinal: Present: normal bowel sounds, soft. Absent: distended, organomegaly, tenderness - Genitourinary Genitourinary Comment(s): deferred - Integumentary Integumentary: Present: normal turgor. Absent: jaundiced, rash, ulcer - Neurologic Neurologic: Present: CNII-XII intact. Absent: focal deficits - Musculoskeletal Musculoskeletal: Present: gait normal, strength equal bilaterally - Psychiatric Psychiatric: Present: A&O x's 3, appropriate affect, intact judgment & insight - Labs CBC & Chem 7: 09/01/24 06:47 09/02/24 07:00 Labs: Abnormal Lab Results - Last 24 Hours (Table) 09/02/24 09/02/24 Range/Units 07:00 07:00 APTT 47.5 H (22.0-30.0) sec Sodium 135 L (137-145) mmol/L Chloride 96 L (98-107) mmol/L Carbon Dioxide 31 H (22-30) mmol/L BUN 41 H (7-17) mg/dL Glucose 117 H (74-99) mg/dL Assessment and Plan Assessment: 1. Acute on chronic hypoxic respiratory failure -Patient is placed on O2 per HFMA; titrate to keep O2 saturation greater than 90% 2. Acute exacerbation CHF; Lasix 40 mg IV every 12 hours; monitor strict KATIUSKA's and daily weight; low-salt and fluid restricted diet 3. Lactic acidosis; lactic acid of 2.1 initially which is trending down to 1.8; 4. Hypertension; patient takes losartan 50-12.5 mg daily and nifedipine XL 30 mg nightly; blood pressures currently soft; medications are placed on hold 5. COPD/asthma; not in exacerbation; patient remains on albuterol nebulizer treatments 4 times daily and as needed; Yupelri 175 mcg per 3 mL daily; Pulmicort inhaler twice daily; Perforomist 20 mcg twice daily 6. Anxiety/depression; Lexapro 10 mg nightly; Xanax 0.25 mg twice daily as needed 7. Possible pneumonia; chest x-ray reveals pneumonia versus atelectasis; initial lactic acid was elevated but down to 1.8 now; WBC within normal limits; will order procalcitonin DVT prophylaxis; SCDs/subcu heparin CODE STATUS; full code
--- NOTE | 2024-09-02 16:28 | P.PN ---
Subjective Progress Note Date: 09/02/24 78-year-old female past medical history of COPD on home 3 L oxygen nasal cannula, alpha-1 antitrypsin deficiency presenting today at the direction of her technical support professional, Dr. Parnell for shortness of breath and hypoxemia. History provided by friend and patient at bedside they state that patient has had wor sening lower extremity swelling and shortness of breath ever since having RSV 2 months ago. She was seen by her technical support professional Dr. Riggs and today when she had a pulse ox of 78% while in the office and was sent here for further evaluation and admission. Of note discharge summary from Dr. Riggs in's office states that patient should have an ultrasound of the lower extremities, CT PE study if kidney function tolerates, Lasix if kidney function allows, steroids, breathing treatments. Patient is not on blood thinners. No history of prior PE. Blood work reveals WBC of 10.2, hemoglobin of 18.8 and platelet count of 155, sodium 137, potassium 3.6, BUNs/creatinine of 39/0.71 and blood glucose of 112, BNP of 14,100, troponin of 0.021, lactic acid of 2.8 EKG Findings: low voltage EKG, rate 75 bpm [place] interval 160 ms QT/QTc 370/399 ms, borderline right axis deviation, there is no clear ST elevations or depressions no STEMI, indeterminate EKG CT PE protocol negative for pulmonary embolism Chest x-ray reveals cardiomegaly with small pleural effusion and left basilar a cute infiltrate versus atelectasis 09/01/2024 -- Late entry for above dated now; documentation inadvertently missed yesterday -Patient seen and evaluated in room at bedside; does not report much improvement in breathing; requesting to be seen by customer program manager because of thickened and enlarged toenails Vital signs are reviewed and blood pressure somewhat improved after decreasing dose of Lasix Lab review shows WBC 7.5, hemoglobin of 16.3 and platelet count of 195, sodium 136, potassium 3.6, BUNs/creatinine of 39/0.77 -Cardiology recommending to continue with reduced dose of Lasix; midodrine has been discontinued -Patient would likely need further workup for elevated troponin 24-hour interval change 09/02/2024 Patient is seen in selective care unit resting comfortably in bed; inquiring about podiatry consult Vital signs reviewed temperature 97.8, pulse 67, respiration 20 and blood pressure of 122/80 Blood work reveals sodium of 135, potassium 3.8, BUNs/creatinine of 41/0.88 -Patient has been reevaluated by cardiology and recommending to increase Lasix up to 40 mg every 12 hours -We will continue to monitor strict KATIUSKA's, daily weights, low-salt and fluid restricted diet Objective - Vital Signs Vital signs: Vital Signs Temp 97.6 F 09/02/24 11:40 Pulse 72 09/02/24 15:15 Resp 18 09/02/24 11:40 BP 107/74 09/02/24 11:40 Pulse Ox 90 L 09/02/24 15:06 FiO2 65 09/02/24 15:06 Intake & Output 09/01/24 09/02/24 09/02/24 18:59 06:59 18:59 Intake Total 982.542 222 Output Total 1475 300 375 Balance -492.458 -300 -153 Weight 76 kg Intake: Intake, IV Titration 59.542 Amount Heparin Sod,Pork in 0.45% 59.542 NaCl 25,000 unit In 0.45 % NaCl 1 250ml.bag @ 12 UNITS/KG/HR 9.18 mls/hr IV .Q24H [facility] Rx#: [id number] Oral 923 222 Output: Urine 1475 300 375 Straight 600 Other: Voiding Method External Catheter External Catheter External Catheter - Exam - Constitutional General appearance: Present: average body habitus, cooperative, no acute distress - EENT Eyes: Present: anicteric sclerae, EOMI, PERRLA, normal appearance ENT: Present: hearing grossly normal, normal oropharynx Ears: bilateral: normal - Neck Neck: Present: normal ROM. Absent: lymphadenopathy, rigidity, thyromegaly Carotids: negative: bruit present Thyroid: bilateral: normal size, negative: enlarged, nodule - Respiratory Respiratory: bilateral: CTA, negative: rales, rhonchi, wheezing - Cardiovascular Rhythm: regular Heart sounds: normal: S1, S2 Abnormal Heart Sounds: Absent: systolic murmur, diastolic murmur - Gastrointestinal General gastrointestinal: Present: normal bowel sounds, soft. Absent: distended, organomegaly, tenderness - Genitourinary Genitourinary Comment(s): deferred - Integumentary Integumentary: Present: normal turgor. Absent: jaundiced, rash, ulcer - Neurologic Neurologic: Present: CNII-XII intact. Absent: focal deficits - Musculoskeletal Musculoskeletal: Present: gait normal, strength equal bilaterally - Psychiatric Psychiatric: Present: A&O x's 3, appropriate affect, intact judgment & insight - Labs CBC & Chem 7: 09/01/24 06:47 09/02/24 07:00 Labs: Abnormal Lab Results - Last 24 Hours (Table) 09/02/24 09/02/24 Range/Units 07:00 07:00 APTT 47.5 H (22.0-30.0) sec Sodium 135 L (137-145) mmol/L Chloride 96 L (98-107) mmol/L Carbon Dioxide 31 H (22-30) mmol/L BUN 41 H (7-17) mg/dL Glucose 117 H (74-99) mg/dL Assessment and Plan Assessment: 1. Acute on chronic hypoxic respiratory failure -Patient is placed on O2 per HFNC; titrate to keep O2 saturation greater than 90% 2. Acute exacerbation CHF; Lasix 40 mg IV every 12 hours; monitor strict KATIUSKA's and daily weight; low-salt and fluid restricted diet 3. Lactic acidosis; lactic acid of 2.1 initially which is trending down to 1.8; 4. Hypertension; patient takes losartan 50-12.5 mg daily and nifedipine XL 30 mg nightly; blood pressures currently soft; medications are placed on hold 5. COPD/asthma; not in exacerbation; patient remains on albuterol nebulizer treatments 4 times daily and as needed; Yupelri 175 mcg per 3 mL daily; Pulmicort inhaler twice daily; Perforomist 20 mcg twice daily 6. Anxiety/depression; Lexapro 10 mg nightly; Xanax 0.25 mg twice daily as needed 7. Possible pneumonia; chest x-ray reveals pneumonia versus atelectasis; initial lactic acid was elevated but down to 1.8 now; WBC within normal limits; will order procalcitonin DVT prophylaxis; SCDs/subcu heparin CODE STATUS; full code
--- NOTE | 2024-09-03 06:40 | P.PN ---
Subjective Progress Note Date: 09/03/24 This is an 78-year-old female patient with no prior cardiac history but medical history significant for chronic hypoxic respiratory failure secondary to COPD and alpha 1 antitrypsin deficiency presented to the hospital with progressive exertional dyspnea associated with progressive bilateral lower extremity edema for the last few days. No symptoms of chest pain or chest discomfort but she felt she was experiencing severe congestions with no fever and no chills and no cough and no sputum production. No other cardiovascular symptoms of dizziness or lightheadedness or any feeling of heart racing or fluttering or presyncope or syncope. She developed severe bilateral lower extremities edema. When she presented to the hospital she was hypoxic requiring high flow oxygen. Normally she is on 2 L of oxygen continuously. Definitely her oxygen requirement has increased within the last few days and she has been doing pulse oximetry at home and noticed that her oxygen saturation has been low. She underwent further evaluation including EKG showing RBBB. NT proBNP came to be elevated at 5000. First set of troponin is unremarkable with chest x-ray showed finding consistent with pulmonary vascular congestions and left pleural effusion but CT scan of the chest showed no evidence of PE. Venous duplex study showed no evidence of DVT as well. The physical examination is remarkable for regular rhythm with a systolic murmur at the right and left upper sternal border with diminished breathing sounds bilaterally and bilateral rhonchi and severe bilateral lower extremities pitting edema September 01, 2024 The patient was seen and evaluated this morning. She is overall feeling better. She still have bilateral lower extremities edema. The pressure remains marginal but appears to be better today which she was started on midodrine yesterday. Am going to stop the midodrine and decrease the dose of Lasix from 40 mg IV twice daily to 20 mg IV twice daily giving the marginally low blood pressure and also giving the finding on the echo including severe pulmonary hypertension and moderate pericardial effusion without tamponade physiology. The physical examination is remarkable for bilateral lower extremities edema. The troponin came to be mildly abnormal and I would consider medical treatment in the absence of any chest pain. September 02, 2024 The patient was seen and evaluated this morning. She is still hypoxic requiring high flow oxygen she still have severe bilateral lower extremities edema. Her pressure is better and with that I am going to increase the dose of Lasix to 40 mg IV twice daily which she is hypokalemic and the potassium is in process to be replaced. The physical examination is remarkable for diminished breathing sounds bilaterally and severe bilateral lower extremities edema. September 03, 2024 The patient was seen and evaluated this morning. The bilateral lower extremities edema has somewhat improved but continues to be there. She is on Lasix IV. I would suggest continue the current dose of Lasix IV and will follow-up with the blood work from the morning which is still pending. Otherwise she remains hemodynamically stable. No symptoms of chest pain or chest discomfort. The physical examination is remarkable for moderate bilateral lower extremities pitting edema with diminished breathing sounds bilaterally. Definitely the edema has improved after we increase the dose of Lasix yesterday. Assessment Acute on chronic hypoxic respiratory failure Heart failure of unknown etiology with evidence of right and left failure History of hypoxic respiratory failure Elevated cardiac enzymes Moderate pericardial effusion Severe pulmonary hypertension Multiple comorbid conditions Plan Continue the current medical regimen Continue monitoring the kidney function and follow-up with the blood work this morning Follow-up with the patient Objective - Vital Signs Vital signs: Vital Signs Temp 97.7 F 09/03/24 04:00 Pulse 73 09/03/24 04:00 Resp 18 09/03/24 04:00 BP 101/56 09/03/24 04:00 Pulse Ox 90 L 09/03/24 04:05 FiO2 65 09/03/24 04:05 Intake & Output 09/02/24 09/02/24 09/03/24 06:59 18:59 06:59 Intake Total 564 Output Total 300 675 650 Balance -300 -111 -650 Weight 76 kg 68 kg Intake: Oral 564 Output: Urine 300 675 650 Other: Voiding Method External Catheter External Catheter External Catheter - Labs CBC & Chem 7: 09/01/24 06:47 09/02/24 07:00 Labs: Abnormal Lab Results - Last 24 Hours (Table) 09/02/24 09/02/24 Range/Units 07:00 07:00 APTT 47.5 H (22.0-30.0) sec Sodium 135 L (137-145) mmol/L Chloride 96 L (98-107) mmol/L Carbon Dioxide 31 H (22-30) mmol/L BUN 41 H (7-17) mg/dL Glucose 117 H (74-99) mg/dL
[2024-09-03] MEDS: ALPRAZolam 0.25 MG TAB PO PRN (07:49)
[2024-09-03 08:44] LABS: Basophils % (A) 0 %; Eosinophils # (A) 0.1 k/uL (0-0.7); Eosinophils % (A) 1 %; HCT 54.1 % (34.0-46.0); HGB 17.3 gm/dL (11.4-16.0); Hypochromasia Slight; Lymphocytes # (A) 0.7 k/uL (1.0-4.8); Lymphocytes % (A) 8 %; MCH 30.5 pg (25.0-35.0); MCHC 31.9 g/dL (31.0-37.0); MCV 95.6 fL (80.0-100.0); Mean Platelet Volume 8.8; Monocytes # (A) 0.6 k/uL (0-1.0); Monocytes % (A) 7 %; Neutrophils # (A) 7.2 k/uL (1.3-7.7); Neutrophils % (A) 82 %; Platelet Count 172 k/uL (150-450); RBC 5.66 m/uL (3.80-5.40); RDW 15.4 % (11.5-15.5); WBC 8.8 k/uL (3.8-10.6)
[2024-09-03 09:55] LABS: African American GFR (CKD) >90 (>60 ml/min/1.73 sqM); Anion Gap 6 mmol/L; Blood Urea Nitrogen 34 mg/dL (7-17); Calcium 8.6 mg/dL (8.4-10.2); Carbon Dioxide 35 mmol/L (22-30); Chloride 92 mmol/L (98-107); Glucose 113 mg/dL (74-99); Non-African American GFR(CKD) 83 (>60 ml/min/1.73 sqM); Potassium 3.1 mmol/L (3.5-5.1); Sodium 133 mmol/L (137-145)
--- NOTE | 2024-09-03 11:42 | P.PN ---
Subjective Progress Note Date: 09/03/24 78-year-old female past medical history of COPD on home 3 L oxygen nasal cannula, alpha-1 antitrypsin deficiency presenting today at the direction of her carpenter mine, Dr. Parnell for shortness of breath and hypoxemia. History provided by friend and patient at bedside they state that patient has had wor sening lower extremity swelling and shortness of breath ever since having RSV 2 months ago. She was seen by her carpenter mine Dr. Riggs and today when she had a pulse ox of 78% while in the office and was sent here for further evaluation and admission. Of note discharge summary from Dr. Riggs in's office states that patient should have an ultrasound of the lower extremities, CT PE study if kidney function tolerates, Lasix if kidney function allows, steroids, breathing treatments. Patient is not on blood thinners. No history of prior PE. Blood work reveals WBC of 10.2, hemoglobin of 18.8 and platelet count of 155, sodium 137, potassium 3.6, BUNs/creatinine of 39/0.71 and blood glucose of 112, BNP of 14,100, troponin of 0.021, lactic acid of 2.8 EKG Findings: low voltage EKG, rate 75 bpm RI interval 160 ms QT/QTc 370/399 ms, borderline right axis deviation, there is no clear ST elevations or depressions no STEMI, indeterminate EKG CT PE protocol negative for pulmonary embolism Chest x-ray reveals cardiomegaly with small pleural effusion and left basilar a cute infiltrate versus atelectasis 09/01/2024 -- Late entry for above dated now; documentation inadvertently missed yesterday -Patient seen and evaluated in room at bedside; does not report much improvement in breathing; requesting to be seen by information coordinator because of thickened and enlarged toenails Vital signs are reviewed and blood pressure somewhat improved after decreasing dose of Lasix Lab review shows WBC 7.5, hemoglobin of 16.3 and platelet count of 195, sodium 136, potassium 3.6, BUNs/creatinine of 39/0.77 -Cardiology recommending to continue with reduced dose of Lasix; midodrine has been discontinued -Patient would likely need further workup for elevated troponin 24-hour interval change 09/02/2024 Patient is seen in selective care unit resting comfortably in bed; inquiring about podiatry consult Vital signs reviewed temperature 97.8, pulse 67, respiration 20 and blood pressure of 122/80 Blood work reveals sodium of 135, potassium 3.8, BUNs/creatinine of 41/0.88 -Patient has been reevaluated by cardiology and recommending to increase Lasix up to 40 mg every 12 hours -We will continue to monitor strict KATIUSKA's, daily weights, low-salt and fluid restricted diet 09/03/2024 Patient is seen and evaluated in room at bedside; somewhat sleepy this morning; had Xanax 0.5 mg per home dose; patient requesting to increase dose of Xanax; we will continue with same dose at this point Vital signs are reviewed and stable with temperature 97.7, pulse 73, respiration 18 and blood pressure of 101/56 Cardiology on board and recommending to continue with IV diuretics at this time; we will continue to monitor KATIUSKA's, daily weights; continue with low-salt and fluid restricted diet -Patient has been requesting podiatry consult for thickened elongated nails; podiatry will be able to see patient till Wednesday Objective - Vital Signs Vital signs: Vital Signs Temp 97.5 F L 09/03/24 07:45 Pulse 80 09/03/24 08:11 Resp 19 09/03/24 07:52 BP 131/72 09/03/24 07:45 Pulse Ox 90 L 09/03/24 07:47 FiO2 65 09/03/24 07:47 Intake & Output 09/02/24 09/03/24 09/03/24 18:59 06:59 18:59 Intake Total 564 Output Total 675 650 Balance -111 -650 Weight 68 kg Intake: Oral 564 Output: Urine 675 650 Other: Voiding Method External Catheter External Catheter External Catheter - Exam - Constitutional General appearance: Present: average body habitus, cooperative, no acute distress - EENT Eyes: Present: anicteric sclerae, EOMI, PERRLA, normal appearance ENT: Present: hearing grossly normal, normal oropharynx Ears: bilateral: normal - Neck Neck: Present: normal ROM. Absent: lymphadenopathy, rigidity, thyromegaly Carotids: negative: bruit present Thyroid: bilateral: normal size, negative: enlarged, nodule - Respiratory Respiratory: bilateral: CTA, negative: rales, rhonchi, wheezing - Cardiovascular Rhythm: regular Heart sounds: normal: S1, S2 Abnormal Heart Sounds: Absent: systolic murmur, diastolic murmur - Gastrointestinal General gastrointestinal: Present: normal bowel sounds, soft. Absent: distended, organomegaly, tenderness - Genitourinary Genitourinary Comment(s): deferred - Integumentary Integumentary: Present: normal turgor. Absent: jaundiced, rash, ulcer - Neurologic Neurologic: Present: CNII-XII intact. Absent: focal deficits - Musculoskeletal Musculoskeletal: Present: gait normal, strength equal bilaterally - Psychiatric Psychiatric: Present: A&O x's 3, appropriate affect, intact judgment & insight - Labs CBC & Chem 7: 09/03/24 08:13 09/03/24 08:13 Labs: Abnormal Lab Results - Last 24 Hours (Table) 09/03/24 Range/Units 08:13 RBC 5.66 H (3.80-5.40) m/uL Hgb 17.3 H (11.4-16.0) gm/dL Hct 54.1 H (34.0-46.0) % Lymphocytes # 0.7 L (1.0-4.8) k/uL Assessment and Plan Assessment: 1. Acute on chronic hypoxic respiratory failure -Patient is placed on O2 per HFNC; titrate to keep O2 saturation greater than 90% 2. Acute exacerbation CHF; Lasix 40 mg IV every 12 hours; monitor strict KATIUSKA's and daily weight; low-salt and fluid restricted diet 3. Lactic acidosis; lactic acid of 2.1 initially which is trending down to 1.8; 4. Hypertension; patient takes losartan 50-12.5 mg daily and nifedipine XL 30 mg nightly; blood pressures currently soft; medications are placed on hold 5. COPD/asthma; not in exacerbation; patient remains on albuterol nebulizer treatments 4 times daily and as needed; Yupelri 175 mcg per 3 mL daily; Pulmicort inhaler twice daily; Perforomist 20 mcg twice daily 6. Anxiety/depression; Lexapro 10 mg nightly; Xanax 0.25 mg twice daily as needed 7. Possible pneumonia; chest x-ray reveals pneumonia versus atelectasis; initial lactic acid was elevated but down to 1.8 now; WBC within normal limits; will order procalcitonin DVT prophylaxis; SCDs/subcu heparin CODE STATUS; full code
--- NOTE | 2024-09-03 11:47 | P.GSCN ---
History of Present Illness Consult date: 09/03/24 History of present illness: 78 yo female in the hospital with exacerbation of her copd and chf. SHe has had intermittent urinary retention requiring catheters and straight caths. we were consulted for this reason. She had a bladder scan for 750 ml of urine this an and was subsequently straight cathed. She has had a lot of lasix for her chf. She still has pitting edema of the lower extremities. Prior to this hospitalization she has never had problems urinating. She denies urinary tract infections hematuria or incontinence. She has not had excessive urination. She denies any pain with urination. During this hospitalization due to her weakness, edema and congestive failure she does not immediately recognize the full bladder. She still has lower extremity pitting edema. This is new to her. Past Medical History Past Medical History: COPD, Hypertension History of Any Multi-Drug Resistant Organisms: None Reported Past Surgical History: No Surgical Hx Reported Past Anesthesia/Blood Transfusion Reactions: No Reported Reaction Past Psychological History: No Psychological Hx Reported Smoking Status: Former smoker Past Alcohol Use History: None Reported Past Drug Use History: None Reported Medications and Allergies Home Medications Medication Instructions Recorded Confirmed Type ALPRAZolam [Xanax] 0.25 - 0.5 mg PO BID PRN 08/30/24 08/30/24 History Albuterol Nebulized [Ventolin 2.5 mg INHALATION RT-QID 08/30/24 08/30/24 History Nebulized] Albuterol Sulfate [Albuterol 2 puff PO RT-Q4H PRN 08/30/24 08/30/24 History Sulfate Hfa] Budesonide [Pulmicort] 0.5 mg INHALATION RT-BID 08/30/24 08/30/24 History Escitalopram Oxalate [Lexapro] 10 mg PO HS 08/30/24 08/30/24 History Formoterol Fumarate [Perforomist] 20 mcg INHALATION RT-BID 08/30/24 08/30/24 History Losartan-Hctz 50-12.5 mg [Hyzaar 1 tab PO HS 08/30/24 08/30/24 History 50-12.5] NIFEdipine XL [Procardia Xl] 30 mg PO HS 08/30/24 08/30/24 History Yupelri 175mcg/3ml 175 mcg INHALATION RT-DAILY 08/30/24 08/30/24 History Allergies Allergy/AdvReac Type Severity Reaction Status Date / Time Penicillins Allergy red streak Verified 08/30/24 17:43 up back of neck lorazepam [From Ativan] AdvReac pain all Verified 08/30/24 17:43 over & insomnia prednisolone AdvReac insomnia Verified 08/30/24 17:43 Surgical - Exam Vital Signs Temp Pulse Resp BP Pulse Ox 98.7 F 86 17 109/72 78 L 08/30/24 14:36 08/30/24 14:36 08/30/24 14:36 08/30/24 14:36 08/30/24 14:36 - General well developed, well nourished, no distress - Eyes normal ocular movement, no icteric - ENT no hearing loss, no congestion - Neck no masses, trachea midline - Respiratory normal respiratory effort, clear to auscultation - Abdomen Abdomen: soft, non tender, no guarding, no rigid, no rebound - Integumentary Lower extremity pitting edema up into the thighs. no rash, no abnormal pigmentation - Neurologic no disoriented, no combative - Psychiatric oriented to time, oriented to person, oriented to place, speech is normal, memory intact Results - Labs 09/03/24 08:13 09/03/24 08:13 Abnormal Lab Results - Last 24 Hours (Table) 09/03/24 09/03/24 Range/Units 08:13 08:13 RBC 5.66 H (3.80-5.40) m/uL Hgb 17.3 H (11.4-16.0) gm/dL Hct 54.1 H (34.0-46.0) % Lymphocytes # 0.7 L (1.0-4.8) k/uL Sodium 133 L (137-145) mmol/L Potassium 3.1 L (3.5-5.1) mmol/L Chloride 92 L (98-107) mmol/L Carbon Dioxide 35 H (22-30) mmol/L BUN 34 H (7-17) mg/dL Glucose 113 H (74-99) mg/dL Diabetes panel 09/03/24 Range/Units 08:13 Sodium 133 L (137-145) mmol/L Potassium 3.1 L (3.5-5.1) mmol/L Chloride 92 L (98-107) mmol/L Carbon Dioxide 35 H (22-30) mmol/L BUN 34 H (7-17) mg/dL Creatinine 0.69 (0.52-1.04) mg/dL Glucose 113 H (74-99) mg/dL Calcium 8.6 (8.4-10.2) mg/dL Calcium panel 09/03/24 Range/Units 08:13 Calcium 8.6 (8.4-10.2) mg/dL Pituitary panel 09/03/24 Range/Units 08:13 Sodium 133 L (137-145) mmol/L Potassium 3.1 L (3.5-5.1) mmol/L Chloride 92 L (98-107) mmol/L Carbon Dioxide 35 H (22-30) mmol/L BUN 34 H (7-17) mg/dL Creatinine 0.69 (0.52-1.04) mg/dL Glucose 113 H (74-99) mg/dL Calcium 8.6 (8.4-10.2) mg/dL Adrenal panel 09/03/24 Range/Units 08:13 Sodium 133 L (137-145) mmol/L Potassium 3.1 L (3.5-5.1) mmol/L Chloride 92 L (98-107) mmol/L Carbon Dioxide 35 H (22-30) mmol/L BUN 34 H (7-17) mg/dL Creatinine 0.69 (0.52-1.04) mg/dL Glucose 113 H (74-99) mg/dL Calcium 8.6 (8.4-10.2) mg/dL Assessment and Plan Assessment: Impression: Urine retention most likely due to immobility aggravated by diuresis required for congestive heart failure and lower extremity edema. Recommendations: If the patient goes back into retention the catheter should remain indwelling. I would leave it indwelling until she is ambulatory and the heart failure and edema have been controlled. Most likely she will void without difficulty after that. Time with Patient: Greater than 30
[2024-09-03] MEDS: POTASSIUM CHLORIDE ER 20 MEQ TAB.ER PO SCH (14:58)
[2024-09-04 07:04] LABS: African American GFR (CKD) >90 (>60 ml/min/1.73 sqM); Anion Gap 6 mmol/L; Blood Urea Nitrogen 31 mg/dL (7-17); Calcium 8.1 mg/dL (8.4-10.2); Carbon Dioxide 35 mmol/L (22-30); Chloride 91 mmol/L (98-107); Glucose 93 mg/dL (74-99); Non-African American GFR(CKD) 82 (>60 ml/min/1.73 sqM); Potassium 3.6 mmol/L (3.5-5.1); Sodium 132 mmol/L (137-145)
--- NOTE | 2024-09-04 14:05 | P.PN ---
Subjective Progress Note Date: 09/04/24 This is an 78-year-old female patient with no prior cardiac history but medical history significant for chronic hypoxic respiratory failure secondary to COPD and alpha 1 antitrypsin deficiency presented to the hospital with progressive exertional dyspnea associated with progressive bilateral lower extremity edema for the last few days. No symptoms of chest pain or chest discomfort but she felt she was experiencing severe congestions with no fever and no chills and no cough and no sputum production. No other cardiovascular symptoms of dizziness or lightheadedness or any feeling of heart racing or fluttering or presyncope or syncope. She developed severe bilateral lower extremities edema. When she presented to the hospital she was hypoxic requiring high flow oxygen. Normally she is on 2 L of oxygen continuously. Definitely her oxygen requirement has increased within the last few days and she has been doing pulse oximetry at home and noticed that her oxygen saturation has been low. She underwent further evaluation including EKG showing RBBB. NT proBNP came to be elevated at 5000. First set of troponin is unremarkable with chest x-ray showed finding consistent with pulmonary vascular congestions and left pleural effusion but CT scan of the chest showed no evidence of PE. Venous duplex study showed no evidence of DVT as well. The physical examination is remarkable for regular rhythm with a systolic murmur at the right and left upper sternal border with diminished breathing sounds bilaterally and bilateral rhonchi and severe bilateral lower extremities pitting edema September 01, 2024 The patient was seen and evaluated this morning. She is overall feeling better. She still have bilateral lower extremities edema. The pressure remains marginal but appears to be better today which she was started on midodrine yesterday. Am going to stop the midodrine and decrease the dose of Lasix from 40 mg IV twice daily to 20 mg IV twice daily giving the marginally low blood pressure and also giving the finding on the echo including severe pulmonary hypertension and moderate pericardial effusion without tamponade physiology. The physical examination is remarkable for bilateral lower extremities edema. The troponin came to be mildly abnormal and I would consider medical treatment in the absence of any chest pain. September 02, 2024 The patient was seen and evaluated this morning. She is still hypoxic requiring high flow oxygen she still have severe bilateral lower extremities edema. Her pressure is better and with that I am going to increase the dose of Lasix to 40 mg IV twice daily which she is hypokalemic and the potassium is in process to be replaced. The physical examination is remarkable for diminished breathing sounds bilaterally and severe bilateral lower extremities edema. September 03, 2024 The patient was seen and evaluated this morning. The bilateral lower extremities edema has somewhat improved but continues to be there. She is on Lasix IV. I would suggest continue the current dose of Lasix IV and will follow-up with the blood work from the morning which is still pending. Otherwise she remains hemodynamically stable. No symptoms of chest pain or chest discomfort. The physical examination is remarkable for moderate bilateral lower extremities pitting edema with diminished breathing sounds bilaterally. Definitely the edema has improved after we increase the dose of Lasix yesterday. 09/04/2024 Patient is seen and examined at bedside this a.m. She is sitting in the chair with a high flow nasal cannula oxygen. 2+ pitting edema bilateral lower extremity, mild crackles in lung gupta, minimal wheezing. Alert oriented, reports that symptomatically she feels better since the time for admission. Blood pressure is borderline low with SBP around 90s to 100 mmHg. 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 Add Aldactone 25 mg daily. Patient has expressed wishes to be DNR/DNI. I would recommend discussing this in further detail with her family. She would benefit from a right heart catheterization to evaluate her nature of severe pulmonary hypertension. Clinically it appears to be group 3. She would benefit from inhaled nitrous oxide or inhaled prostaglandins. Would recommend pulmonary inputs on this If her kidney function worsens, consider using inotropes Objective - Vital Signs Vital signs: Vital Signs Temp 97.5 F L 09/04/24 08:15 Pulse 78 09/04/24 12:02 Resp 17 09/04/24 11:55 BP 96/62 09/04/24 11:55 Pulse Ox 92 L 09/04/24 11:55 FiO2 65 09/04/24 12:09 Intake & Output 09/03/24 09/04/24 09/04/24 18:59 06:59 18:59 Intake Total 120 120 342 Output Total 1700 775 Balance -7757 -601 342 Weight 73 kg Intake: Oral 120 120 342 Output: Urine 1700 775 Other: Voiding Method External Catheter Indwelling Catheter Indwelling Catheter # Voids 1 - Labs CBC & Chem 7: 09/03/24 08:13 09/04/24 05:27 Labs: Abnormal Lab Results - Last 24 Hours (Table) 09/04/24 Range/Units 05:27 Sodium 132 L (137-145) mmol/L Chloride 91 L (98-107) mmol/L Carbon Dioxide 35 H (22-30) mmol/L BUN 31 H (7-17) mg/dL Calcium 8.1 L (8.4-10.2) mg/dL
--- NOTE | 2024-09-04 15:38 | XR ---
EXAMINATION TYPE: XR chest 1V portable DATE OF EXAM: 09/04/2024 CLINICAL INDICATION: Female, 78 years old with history of chf, progress study. TECHNIQUE: Single AP portable upright view of the chest is obtained. COMPARISON: Chest x-ray from 5 days earlier FINDINGS: Persistent cardiomegaly with small left pleural effusion and associated left basilar opaci ty. Background chronic emphysematous change and atherosclerotic thoracic aorta. Right lung is clear. Osseous structures are intact. IMPRESSION: Chronic emphysematous change and Cardiomegaly with small left pleural effusion and associ ated left basilar opacity favoring atelectasis redemonstrated. No significant change from most recent study. [facility], , 09/04/2024 3:36 PM
[2024-09-04] MEDS: SPIRONOLACTONE 25 MG TAB PO SCH (15:50)
[2024-09-04 17:43] LABS: Influenza A Not Detected (Not Detectd); Influenza B Not Detected (Not Detectd); RSV Not Detected (Not Detectd)
[2024-09-04] MEDS: ALPRAZolam 0.5 MG TAB PO PRN (23:48)
--- NOTE | 2024-09-05 00:04 | PN ---
PROGRESS NOTE DATE OF SERVICE: 09/04/2024 SUBJECTIVE: This is an 78-year-old woman, who was admitted with CHF with acute exacerbation, who also had significant hypoxia. The patient also had a COPD and asthma history also. The patient is on AIRVO. Multiple consultants are following the patient closely. The hemoglobin is 17.1. The COVID testing is not available. PAST MEDICAL HISTORY: Reviewed. REVIEW OF SYSTEMS: Fourteen-point review of systems negative except as mentioned earlier. CURRENT MEDICATIONS: Reviewed. PHYSICAL EXAMINATION: VITAL SIGNS: Pulse is 78, blood pressure 90/62, respirations 17, pulse ox n. HEENT: Conjunctivae normal. CARDIOVASCULAR: S1, S2. RESPIRATORY: Breath sounds diminished at the bases. A few scattered rhonchi and crackles. ABDOMEN: Soft and nontender. NERVOUS SYSTEM: Nonfocal. LABORATORY DATA: Sodium 130, potassium 3.1. Otherwise, the chest x-ray on presentation was reviewed, which showed left base atelectasis, pneumonia, also. ASSESSMENT: 1. Shortness of breath, multifactorial with congestive heart failure with acute exacerbation, possibly chronic obstructive pulmonary disease, asthma with acute exacerbation. 2. Left lower lobe pneumonia, possibly. 3. Hyponatremia. 4. Hypokalemia. 5. Acute hypoxic respiratory failure, on AIRVO. 6. Hypertension. RECOMMENDATIONS: This 78-year-old woman presented with multiple complex medical issues. We will monitor the patient. We will continue with diuretics and optimize bronchodilator treatment. Otherwise, I would recommend viral testing, D-dimer, COVID testing also. We will closely follow with multiple consultants. Follow pulmonary consultation. Further recommendations to follow. Optimize bronchodilator treatment. Prognosis is guarded. MMODL / IJN: [id number] / MTDD
[2024-09-05 07:44] LABS: African American GFR (CKD) >90 (>60 ml/min/1.73 sqM); Anion Gap 4 mmol/L; Blood Urea Nitrogen 30 mg/dL (7-17); Calcium 8.2 mg/dL (8.4-10.2); Carbon Dioxide 36 mmol/L (22-30); Chloride 92 mmol/L (98-107); Glucose 109 mg/dL (74-99); Non-African American GFR(CKD) 81 (>60 ml/min/1.73 sqM); Potassium 3.5 mmol/L (3.5-5.1); Sodium 132 mmol/L (137-145)
[2024-09-05 07:46] LABS: Basophils # (A) 0.1 k/uL (0-0.2); Basophils % (A) 1 %; Eosinophils # (A) 0.1 k/uL (0-0.7); Eosinophils % (A) 1 %; HGB 17.4 gm/dL (11.4-16.0); Lymphocytes # (A) 0.8 k/uL (1.0-4.8); Lymphocytes % (A) 10 %; MCH 30.9 pg (25.0-35.0); MCHC 31.6 g/dL (31.0-37.0); MCV 97.8 fL (80.0-100.0); Mean Platelet Volume 9.4; Monocytes # (A) 0.7 k/uL (0-1.0); Monocytes % (A) 8 %; Neutrophils # (A) 6.6 k/uL (1.3-7.7); Neutrophils % (A) 79 %; Platelet Count 167 k/uL (150-450); RBC 5.62 m/uL (3.80-5.40); RDW 15.6 % (11.5-15.5); WBC 8.4 k/uL (3.8-10.6)
--- NOTE | 2024-09-05 11:43 | P.PN ---
Subjective Progress Note Date: 09/05/24 This is an 78-year-old female patient with no prior cardiac history but medical history significant for chronic hypoxic respiratory failure secondary to COPD and alpha 1 antitrypsin deficiency presented to the hospital with progressive exertional dyspnea associated with progressive bilateral lower extremity edema for the last few days. No symptoms of chest pain or chest discomfort but she felt she was experiencing severe congestions with no fever and no chills and no cough and no sputum production. No other cardiovascular symptoms of dizziness or lightheadedness or any feeling of heart racing or fluttering or presyncope or syncope. She developed severe bilateral lower extremities edema. When she presented to the hospital she was hypoxic requiring high flow oxygen. Normally she is on 2 L of oxygen continuously. Definitely her oxygen requirement has increased within the last few days and she has been doing pulse oximetry at home and noticed that her oxygen saturation has been low. She underwent further evaluation including EKG showing RBBB. NT proBNP came to be elevated at 5000. First set of troponin is unremarkable with chest x-ray showed finding consistent with pulmonary vascular congestions and left pleural effusion but CT scan of the chest showed no evidence of PE. Venous duplex study showed no evidence of DVT as well. The physical examination is remarkable for regular rhythm with a systolic murmur at the right and left upper sternal border with diminished breathing sounds bilaterally and bilateral rhonchi and severe bilateral lower extremities pitting edema September 01, 2024 The patient was seen and evaluated this morning. She is overall feeling better. She still have bilateral lower extremities edema. The pressure remains marginal but appears to be better today which she was started on midodrine yesterday. Am going to stop the midodrine and decrease the dose of Lasix from 40 mg IV twice daily to 20 mg IV twice daily giving the marginally low blood pressure and also giving the finding on the echo including severe pulmonary hypertension and moderate pericardial effusion without tamponade physiology. The physical examination is remarkable for bilateral lower extremities edema. The troponin came to be mildly abnormal and I would consider medical treatment in the absence of any chest pain. September 02, 2024 The patient was seen and evaluated this morning. She is still hypoxic requiring high flow oxygen she still have severe bilateral lower extremities edema. Her pressure is better and with that I am going to increase the dose of Lasix to 40 mg IV twice daily which she is hypokalemic and the potassium is in process to be replaced. The physical examination is remarkable for diminished breathing sounds bilaterally and severe bilateral lower extremities edema. September 03, 2024 The patient was seen and evaluated this morning. The bilateral lower extremities edema has somewhat improved but continues to be there. She is on Lasix IV. I would suggest continue the current dose of Lasix IV and will follow-up with the blood work from the morning which is still pending. Otherwise she remains hemodynamically stable. No symptoms of chest pain or chest discomfort. The physical examination is remarkable for moderate bilateral lower extremities pitting edema with diminished breathing sounds bilaterally. Definitely the edema has improved after we increase the dose of Lasix yesterday. 09/04/2024 Patient is seen and examined at bedside this a.m. She is sitting in the chair with a high flow nasal cannula oxygen. 2+ pitting edema bilateral lower extremity, mild crackles in lung gupta, minimal wheezing. Alert oriented, reports that symptomatically she feels better since the time for admission. Blood pressure is borderline low with SBP around 90s to 100 mmHg. 09/05/2024 Patient is seen and examined at bedside this a.m. She continues to be on high flow nasal cannula 1-2+ pitting edema bilateral extremity with mild crackles in lung gupta with minimal wheezing Alert oriented Reports symptomatically feeling better. Blood pressure and heart rates are within acceptable ranges kidney function and electrolytes are within acceptable ranges. 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 Start Bumex 1 mg twice daily for neck 7 days. Continue Aldactone 25 mg daily Patient has expressed wishes to be DNR/DNI. I would recommend discussing this in further detail with her family. She would benefit from a right heart catheterization to evaluate her nature of severe pulmonary hypertension. Clinically it appears to be group 3. She would benefit from inhaled prostaglandins on nitrous oxide if it is available in the hospital. Obtain limited echo tomorrow for pericardial effusion evaluation. Consider Pulmonary consult. Would request primary team to help with this. PT /OT and social work/home care. Would request primary team to help with this. Objective - Vital Signs Vital signs: Vital Signs Temp 97.5 F L 09/05/24 08:33 Pulse 73 09/05/24 11:07 Resp 20 09/05/24 11:07 BP 104/68 09/05/24 11:07 Pulse Ox 92 L 09/05/24 11:07 FiO2 65 09/05/24 11:07 Intake & Output 09/04/24 09/05/24 09/05/24 18:59 06:59 18:59 Intake Total 342 Output Total 700 800 450 Balance -358 800 -450 Weight 73 kg Intake: Oral 342 Output: Urine 700 800 450 Other: Voiding Method Indwelling Catheter Indwelling Catheter Indwelling Catheter - Labs CBC & Chem 7: 09/05/24 07:04 09/05/24 07:04 Labs: Abnormal Lab Results - Last 24 Hours (Table) 09/04/24 09/04/24 09/05/24 Range/Units 15:19 15:19 07:04 RBC 5.62 H (3.80-5.40) m/uL Hgb 17.4 H (11.4-16.0) gm/dL Hct 55.0 H (34.0-46.0) % RDW 15.6 H (11.5-15.5) % Lymphocytes # 0.8 L (1.0-4.8) k/uL D-Dimer 2.36 H (<0.60) mg/L FEU Sodium (137-145) mmol/L Chloride (98-107) mmol/L Carbon Dioxide (22-30) mmol/L BUN (7-17) mg/dL Glucose (74-99) mg/dL Calcium (8.4-10.2) mg/dL C-Reactive Protein 3.9 H (<1.0) mg/dL Cortisol (3.1-22.4) UG/DL 09/05/24 Range/Units 07:04 RBC (3.80-5.40) m/uL Hgb (11.4-16.0) gm/dL Hct (34.0-46.0) % RDW (11.5-15.5) % Lymphocytes # (1.0-4.8) k/uL D-Dimer (<0.60) mg/L FEU Sodium 132 L (137-145) mmol/L Chloride 92 L (98-107) mmol/L Carbon Dioxide 36 H (22-30) mmol/L BUN 30 H (7-17) mg/dL Glucose 109 H (74-99) mg/dL Calcium 8.2 L (8.4-10.2) mg/dL C-Reactive Protein (<1.0) mg/dL Cortisol 32.9 H (3.1-22.4) UG/DL
--- NOTE | 2024-09-05 14:39 | P.CNPUL ---
History of Present Illness Consult date: 09/04/24 Reason for consult: dyspnea, hypoxemia History of present illness: This is an 78-year-old female patient with no prior cardiac history but medical history significant for chronic hypoxic respiratory failure secondary to COPD and alpha 1 antitrypsin deficiency presented to the hospital with progressive exertional dyspnea associated with progressive bilateral lower extremity edema for the last few days. No symptoms of chest pain or chest discomfort but she felt she was experiencing severe congestions with no fever and no chills and no cough and no sputum production. No other cardiovascular symptoms of dizziness or lightheadedness or any feeling of heart racing or fluttering or presyncope or syncope. She developed severe bilateral lower extremities edema. When she presented to the hospital she was hypoxic requiring high flow oxygen. Normally she is on 2 L of oxygen continuously. Definitely her oxygen requirement has increased within the last few days and she has been doing pulse oximetry at home and noticed that her oxygen saturation has been low. She underwent further evaluation including EKG showing RBBB. NT proBNP came to be elevated at 5000. First set of troponin is unremarkable with chest x-ray showed finding consistent with pulmonary vascular congestions and left pleural effusion but CT scan of the chest showed no evidence of PE. Venous duplex study showed no evidence of DVT as well. The physical examination is remarkable for regular rhythm with a systolic murmur at the right and left upper sternal border with diminished breathing sounds bilaterally and bilateral rhonchi and severe bilateral lower extremities pitting edema. I initially saw this patient in my office. She was hypoxic and she was in significant volume overload with extensive lower extremity edema. I directed this patient to the Emergency Department. After being in the hospital for around 3 days, the patient remained hypoxic and the patient remains on Airvo at 45 L with an FiO2 of 65%. Based on that, a pulmonary consultation was requested. I reviewed the CT of the chest that was done on this patient. The patient has extensive emphysematous changes bilaterally and the patient also has a moderate-sized left-sided pleural ef fusion. No airspace disease. No consolidation. No pneumonias. There is also a new moderate to small size pericardial effusion. Echocardiogram was completed on 08/31/2024 and the patient was found to have a preserved LV function with an EF of around 65% and the patient also had severe RV dilatation, reduced RV global systolic function and severe pulmonary hypertension along with moderate pericardial effusion without signs of any tamponade. The patient had severe tricuspid regurgitation. Estimated right ventricular systolic pressure was 94. For now, the patient is on Lasix 40 mg IV every 12 hours. Monitoring her fluid balance has been essentially negative and the patient has been -2.2 L over the past 24 hours. Most recent electrolytes show a sodium level of 132, potassium of 3.6, BUN 31 with a creatinine 0.7. The white cell count is at 8.8 with a hemoglobin 17.3. She is currently on Lasix 40 mg IV every 12 hours. She is also on Aldactone 25 mg p.o. daily. She remains on IV heparin. The procalcitonin level was 0.08. Troponins were nonelevated. Were Review of Systems Constitutional: Reports fatigue, Reports weakness, Reports weight gain Eyes: denies as per HPI, denies blurred vision, denies bulging eye, denies decreased vision, denies diplopia, denies discharge, denies dry eye, denies irritation, denies itching, denies pain, denies photophobia, denies loss of peripheral vision, denies loss of vision, denies tunnel vision/blind spots Ears: deny: decreased hearing, ear discharge, earache, tinnitus Ears, nose, mouth and throat: Reports as per HPI Breasts: absent: as per HPI, change in shape, gynecomastia, masses, nipple dis charge, pain, skin changes, swelling Cardiovascular: Reports decreased exercise tolerance, Reports dyspnea on exertion, Reports shortness of breath Respiratory: Reports dyspnea, Reports home oxygen Gastrointestinal: Reports as per HPI Genitourinary: Reports as per HPI Menstruation: Reports as per HPI Musculoskeletal: Reports as per HPI Musculoskeletal: bilateral: ankle swelling, absent: ankle pain, ankle stiffness, as per HPI, elbow pain, elbow stiffness, elbow swelling, foot pain, foot stiffness, foot swelling, hand pain, hand stiffness, hand swelling, hip pain, hip stiffness, hip swelling, knee pain, knee stiffness, knee swelling, shoulder pain, shoulder stiffness, shoulder swelling, wrist pain, wrist stiffness, wrist swelling Integumentary: Reports as per HPI Neurological: Reports as per HPI Endocrine: Reports as per HPI, Reports fatigue Hematologic/Lymphatic: Reports as per HPI Allergic/Immunologic: Reports as per HPI Past Medical History Past Medical History: Heart Failure, COPD, Hypertension Additional Past Medical History / Comment(s): Gout, anxiety, panic disorder History of Any Multi-Drug Resistant Organisms: None Reported Past Surgical History: No Surgical Hx Reported Past Anesthesia/Blood Transfusion Reactions: No Reported Reaction Past Psychological History: No Psychological Hx Reported Smoking Status: Former smoker Past Alcohol Use History: None Reported Past Drug Use History: None Reported Medications and Allergies Home Medications Medication Instructions Recorded Confirmed Type ALPRAZolam [Xanax] 0.25 - 0.5 mg PO BID PRN 08/30/24 08/30/24 History Albuterol Nebulized [Ventolin 2.5 mg INHALATION RT-QID 08/30/24 08/30/24 History Nebulized] Albuterol Sulfate [Albuterol 2 puff PO RT-Q4H PRN 08/30/24 08/30/24 History Sulfate Hfa] Budesonide [Pulmicort] 0.5 mg INHALATION RT-BID 08/30/24 08/30/24 History Escitalopram Oxalate [Lexapro] 10 mg PO HS 08/30/24 08/30/24 History Formoterol Fumarate [Perforomist] 20 mcg INHALATION RT-BID 08/30/24 08/30/24 History Losartan-Hctz 50-12.5 mg [Hyzaar 1 tab PO HS 08/30/24 08/30/24 History 50-12.5] NIFEdipine XL [Procardia Xl] 30 mg PO HS 08/30/24 08/30/24 History Yupelri 175mcg/3ml 175 mcg INHALATION RT-DAILY 08/30/24 08/30/24 History Allergies Allergy/AdvReac Type Severity Reaction Status Date / Time Penicillins Allergy red streak Verified 08/30/24 17:43 up back of neck lorazepam [From Ativan] AdvReac pain all Verified 08/30/24 17:43 over & insomnia prednisolone AdvReac insomnia Verified 08/30/24 17:43 Physical Exam Vitals: Vital Signs Temp Pulse Pulse Resp BP BP Pulse Ox 09/04/24 12:09 09/04/24 12:02 78 09/04/24 11:55 75 17 96/62 92 L 09/04/24 11:50 76 09/04/24 08:45 74 09/04/24 08:36 70 09/04/24 08:21 74 92 L 09/04/24 08:15 97.5 F L 84 18 95/62 89 L 09/04/24 04:00 97.7 F 82 20 95/66 90 L 09/04/24 03:00 09/04/24 00:00 79 20 103/66 91 L 09/03/24 23:47 09/03/24 20:00 97.7 F 76 20 98/63 90 L 09/03/24 18:57 96/64 09/03/24 18:54 88 09/03/24 18:42 84 09/03/24 18:41 84 09/03/24 18:29 88 92 L 09/03/24 18:14 88/59 82/59 09/03/24 15:28 74 09/03/24 15:18 92 L 09/03/24 15:14 72 FiO2 09/04/24 12:09 65 09/04/24 12:02 09/04/24 11:55 65 09/04/24 11:50 09/04/24 08:45 09/04/24 08:36 09/04/24 08:21 65 09/04/24 08:15 65 09/04/24 04:00 65 09/04/24 03:00 65 09/04/24 00:00 65 09/03/24 23:47 65 09/03/24 20:00 65 09/03/24 18:57 09/03/24 18:54 09/03/24 18:42 09/03/24 18:41 09/03/24 18:29 65 09/03/24 18:14 09/03/24 15:28 09/03/24 15:18 65 09/03/24 15:14 Intake and Output 09/04/24 09/04/24 09/04/24 06:59 14:59 22:59 Intake Total 342 Output Total 300 Balance -300 342 Intake: Oral 342 Output: Urine 300 Other: Voiding Method Indwelling Catheter Indwelling Catheter Weight 73 kg the patient appeared well nourished and normally developed. Vital signs as documented. The patient is currently on Airvo with flow of 45 L with FiO2 of 65% Head exam is unremarkable. No scleral icterus or corneal arcus noted. Neck is with jugular venous distension, thyromegaly, or carotid bruits. Carotid upstrokes are brisk bilaterally. Lungs a marked diminished breath sounds bilateral especially in the left lung base Cardiac exam reveals the PMI to be normally sized and situated. Rhythm is regu lar. First and second heart sounds normal. No murmurs, rubs or gallops. There is accentuation of second heart sound Abdominal exam reveals normal bowel sounds, no masses, no organomegaly and no aortic enlargement. Extremities are edematous and both femoral and pedal pulses are normal. Examination of the skin revealed no evidence of significant rashes, suspicious appearing nevi or other concerning lesions. Neurologically, the patient is awake and alert and the patient does not have any focal neurological deficit. Cranial nerves are essentially intact. Results - Laboratory Findings CBC and BMP: 09/03/24 08:13 09/04/24 05:27 PT/INR, D-dimer PT 13.9 sec (10.0-12.5) H 09/01/24 06:47 INR 1.3 (<1.2) H 09/01/24 06:47 Abnormal lab findings: Abnormal Labs 08/30/24 08/30/24 08/30/24 14:56 14:56 14:56 RBC 5.72 H Hgb 18.1 H Hct 55.4 H Neutrophils # 9.1 H Lymphocytes # 0.4 L PT 14.1 H INR 1.3 H APTT Sodium Potassium Chloride 97 L Carbon Dioxide BUN 39 H Glucose 112 H Plasma Lactic Acid Juan Luis Calcium Total Bilirubin 1.9 H Troponin I 08/30/24 08/30/24 08/30/24 14:56 16:33 18:22 RBC Hgb Hct Neutrophils # Lymphocytes # PT INR 1.2 H APTT Sodium Potassium Chloride Carbon Dioxide BUN Glucose Plasma Lactic Acid Juan Luis 2.8 H* 2.9 H* Calcium Total Bilirubin Troponin I 08/30/24 08/31/24 08/31/24 21:22 07:28 07:28 RBC 5.52 H Hgb 16.9 H Hct 53.3 H Neutrophils # Lymphocytes # 0.4 L PT INR APTT Sodium 136 L Potassium Chloride Carbon Dioxide BUN 39 H Glucose 174 H Plasma Lactic Acid Juan Luis 2.1 H* Calcium Total Bilirubin Troponin I 08/31/24 08/31/24 08/31/24 07:28 09:31 09:31 RBC Hgb 16.3 H Hct 51.5 H Neutrophils # Lymphocytes # 0.4 L PT 17.6 H INR 1.7 H APTT >200.0 H* Sodium Potassium Chloride Carbon Dioxide BUN Glucose Plasma Lactic Acid Juan Luis Calcium Total Bilirubin Troponin I 0.039 H* 08/31/24 08/31/24 09/01/24 15:27 23:26 06:47 RBC Hgb Hct Neutrophils # Lymphocytes # PT INR APTT 89.2 H 60.6 H Sodium 136 L Potassium 3.1 L Chloride 97 L Carbon Dioxide 31 H BUN 40 H Glucose 100 H Plasma Lactic Acid Juan Luis Calcium Total Bilirubin Troponin I 09/01/24 09/01/24 09/01/24 06:47 06:47 08:59 RBC Hgb Hct 50.8 H Neutrophils # Lymphocytes # 0.9 L PT 13.9 H INR 1.3 H APTT 60.7 H Sodium Potassium Chloride Carbon Dioxide BUN Glucose Plasma Lactic Acid Juan Luis Calcium Total Bilirubin Troponin I 09/02/24 09/02/24 09/03/24 07:00 07:00 08:13 RBC 5.66 H Hgb 17.3 H Hct 54.1 H Neutrophils # Lymphocytes # 0.7 L PT INR APTT 47.5 H Sodium 135 L Potassium Chloride 96 L Carbon Dioxide 31 H BUN 41 H Glucose 117 H Plasma Lactic Acid Juan Luis Calcium Total Bilirubin Troponin I 09/03/24 09/04/24 08:13 05:27 RBC Hgb Hct Neutrophils # Lymphocytes # PT INR APTT Sodium 133 L 132 L Potassium 3.1 L Chloride 92 L 91 L Carbon Dioxide 35 H 35 H BUN 34 H 31 H Glucose 113 H Plasma Lactic Acid Juan Luis Calcium 8.1 L Total Bilirubin Troponin I - Diagnostic Findings Chest x-ray: image reviewed CT scan - chest: image reviewed Assessment and Plan Plan: acute on chronic hypoxic respiratory failure. The patient is currently on Airvo at 45 L with an FiO2 of 65%. She is typically on home O2 at 3 L/min nasal cannula. Reviewed the CT of the chest. No evidence of any pulm embolism. There are some atelectatic changes and small left-sided pleural effusion. The patient also has a moderate-sized pericardial effusion without signs of tamponade. Chronic right-sided heart failure with severe pulmonary hypertension and severe tricuspid regurgitation Chronic lower extremity edema with obvious signs of fluid overload Moderate-sized pericardial effusion, without signs of tamponade Severe pulmonary hypertension, WHO group 3 Advanced and chronic COPD with history of alpha 1 antitrypsin deficiency. The patient has MZ disease. She has been maintained on a combination of budesonide and Perforomist and Yupelri an outpatient basis in addition to albuterol nebulized treatments on as-needed basis Chronic anxiety Panic attacks Gout Urinary retention, seen by urology. Alba catheter has been inserted. Plan Continue same treatment Continue diuretics Patient is currently on a combination of Lasix and Aldactone Continue bronchodilators Titrate oxygen flow to maintain saturation above 90% With moderate left-sided pleural effusion Will discuss the pericardial effusion with cardiology Prognosis extremely poor based on above-mentioned comorbidities. Furthermore, she has a very poor baseline performance and functional status. Unfortunately, not a whole lot can be offered from a pulmonary standpoint. Will continue to follow DNR/DNI CODE STATUS
--- NOTE | 2024-09-05 14:42 | P.PN ---
Subjective Progress Note Date: 09/05/24 This is an 78-year-old female patient with no prior cardiac history but medical history significant for chronic hypoxic respiratory failure secondary to COPD and alpha 1 antitrypsin deficiency presented to the hospital with progressive exertional dyspnea associated with progressive bilateral lower extremity edema for the last few days. No symptoms of chest pain or chest discomfort but she felt she was experiencing severe congestions with no fever and no chills and no cough and no sputum production. No other cardiovascular symptoms of dizziness or lightheadedness or any feeling of heart racing or fluttering or presyncope or syncope. She developed severe bilateral lower extremities edema. When she presented to the hospital she was hypoxic requiring high flow oxygen. Normally she is on 2 L of oxygen continuously. Definitely her oxygen requirement has increased within the last few days and she has been doing pulse oximetry at home and noticed that her oxygen saturation has been low. She underwent further evaluation including EKG showing RBBB. NT proBNP came to be elevated at 5000. First set of troponin is unremarkable with chest x-ray showed finding consistent with pulmonary vascular congestions and left pleural effusion but CT scan of the chest showed no evidence of PE. Venous duplex study showed no evidence of DVT as well. The physical examination is remarkable for regular rhythm with a systolic murmur at the right and left upper sternal border with diminished breathing sounds bilaterally and bilateral rhonchi and severe bilateral lower extremities pitting edema. I initially saw this patient in my office. She was hypoxic and she was in significant volume overload with extensive lower extremity edema. I directed this patient to the Emergency Department. After being in the hospital for around 3 days, the patient remained hypoxic and the patient remains on Airvo at 45 L with an FiO2 of 65%. Based on that, a pulmonary consultation was requested. I reviewed the CT of the chest that was done on this patient. The patient has extensive emphysematous changes rubina aterally and the patient also has a moderate-sized left-sided pleural effusion. No airspace disease. No consolidation. No pneumonias. There is also a new moderate to small size pericardial effusion. Echocardiogram was completed on 08/31/2024 and the patient was found to have a preserved LV function with an EF of around 65% and the patient also had severe RV dilatation, reduced RV global systolic function and severe pulmonary hypertension along with moderate pericardial effusion without signs of any tamponade. The patient had severe tricuspid regurgitation. Estimated right ventricular systolic pressure was 94. For now, the patient is on Lasix 40 mg IV every 12 hours. Monitoring her fluid balance has been essentially negative and the patient has been -2.2 L over the past 24 hours. Most recent electrolytes show a sodium level of 132, potassium of 3.6, BUN 31 with a creatinine 0.7. The white cell count is at 8.8 with a hemoglobin 17.3. She is currently on Lasix 40 mg IV every 12 hours. She is also on Aldactone 25 mg p.o. daily. She remains on IV heparin. The procalcitonin level was 0.08. Troponins were nonelevated. On 09/05/2024, the patient is being seen for a follow-up. The patient is calm and comfortable. The patient is currently on Airvo 45 L with an FiO2 of 65%. She remains on Bumex 1 mg p.o. twice daily and Aldactone 25 mg p.o. daily. She has been diuresing well over the past several days and the patient has been negative fluid balance of 1.1 L over the past 24 hours. No significant shortness of breath at rest. Continues to have significant amount of edema lower extremities bilaterally. The white cell count is at 8.4 with a hemoglobin 17.4 and a jurgen telet count of 167. BUN is 30 with a creatinine of of 0.7. Sodium level is at 132 and a potassium level is at 3.5. Viral screen was negative. Chest x-ray from yesterday was consistent with COPD with chronic emphysematous changes and cardiomegaly and small left-sided pleural effusion. The patient also was noted to have a moderate-sized pericardial effusion without signs of tamponade. The patient was taken off the IV Lasix and the patient was started on Bumex in combination with Aldactone. Objective - Vital Signs Vital signs: Vital Signs Temp 97.5 F L 09/05/24 08:33 Pulse 74 09/05/24 08:35 Resp 20 09/05/24 08:35 BP 113/74 09/05/24 08:33 Pulse Ox 93 L 09/05/24 08:33 FiO2 65 09/05/24 08:33 Intake & Output 09/04/24 09/05/24 09/05/24 18:59 06:59 18:59 Intake Total 342 Output Total 700 800 450 Balance -241 -438 -411 Weight 73 kg Intake: Oral 342 Output: Urine 700 800 450 Other: Voiding Method Indwelling Catheter Indwelling Catheter Indwelling Catheter - Exam the patient appeared well nourished and normally developed. Vital signs as documented. The patient is currently on Airvo with flow of 45 L with FiO2 of 65% Head exam is unremarkable. No scleral icterus or corneal arcus noted. Neck is with jugular venous distension, thyromegaly, or carotid bruits. Carotid upstrokes are brisk bilaterally. Lungs a marked diminished breath sounds bilateral especially in the left lung base Cardiac exam reveals the PMI to be normally sized and situated. Rhythm is regular. First and second heart sounds normal. No murmurs, rubs or gallops. There is accentuation of second heart sound Abdominal exam reveals normal bowel sounds, no masses, no organomegaly and no aortic enlargement. Extremities are edematous and both femoral and pedal pulses are normal. Examination of the skin revealed no evidence of significant rashes, suspicious appearing nevi or other concerning lesions. Neurologically, the patient is awake and alert and the patient does not have any focal neurological deficit. Cranial nerves are essentially intact. - Labs CBC & Chem 7: 09/05/24 07:04 09/05/24 07:04 Labs: Abnormal Lab Results - Last 24 Hours (Table) 09/04/24 09/04/24 09/05/24 Range/Units 15:19 15:19 07:04 RBC 5.62 H (3.80-5.40) m/uL Hgb 17.4 H (11.4-16.0) gm/dL Hct 55.0 H (34.0-46.0) % RDW 15.6 H (11.5-15.5) % Lymphocytes # 0.8 L (1.0-4.8) k/uL D-Dimer 2.36 H (<0.60) mg/L FEU Sodium (137-145) mmol/L Chloride (98-107) mmol/L Carbon Dioxide (22-30) mmol/L BUN (7-17) mg/dL Glucose (74-99) mg/dL Calcium (8.4-10.2) mg/dL C-Reactive Protein 3.9 H (<1.0) mg/dL 09/05/24 Range/Units 07:04 RBC (3.80-5.40) m/uL Hgb (11.4-16.0) gm/dL Hct (34.0-46.0) % RDW (11.5-15.5) % Lymphocytes # (1.0-4.8) k/uL D-Dimer (<0.60) mg/L FEU Sodium 132 L (137-145) mmol/L Chloride 92 L (98-107) mmol/L Carbon Dioxide 36 H (22-30) mmol/L BUN 30 H (7-17) mg/dL Glucose 109 H (74-99) mg/dL Calcium 8.2 L (8.4-10.2) mg/dL C-Reactive Protein (<1.0) mg/dL Assessment and Plan Plan: acute on chronic hypoxic respiratory failure. The patient is currently on Airvo at 45 L with an FiO2 of 65%. She is typically on home O2 at 3 L/min nasal cannula. Reviewed the CT of the chest. No evidence of any pulm embolism. There are some atelectatic changes and small left-sided pleural effusion. The patient also has a moderate-sized pericardial effusion without signs of ta mponade. Chronic right-sided heart failure with severe pulmonary hypertension and severe tricuspid regurgitation Chronic lower extremity edema with obvious signs of fluid overload Moderate-sized pericardial effusion, without signs of tamponade Severe pulmonary hypertension, WHO group 3 Advanced and chronic COPD with history of alpha 1 antitrypsin deficiency. The patient has MZ disease. She has been maintained on a combination of budesonide and Perforomist and Yupelri an outpatient basis in addition to albuterol nebulized treatments on as-needed basis Chronic anxiety Panic attacks Gout Urinary retention, seen by urology. Alba catheter has been inserted. Plan Condition is essentially unchanged compared to yesterday. Continues to have significant amount of edema lower extremities. Diuretics have been modified and the patient is currently on a combination of Bumex and Aldactone. Lasix was discontinued. Continue bronchodilators Titrate oxygen flow to maintain saturation above 90% Repeat chest x-ray shows a small/moderate-sized left-sided pleural effusion. Will discuss the pericardial effusion with cardiology Prognosis extremely poor based on above-mentioned comorbidities. Furthermore, she has a very poor baseline performance and functional status. Unfortunately, not a whole lot can be offered from a pulmonary standpoint. This is a group 3 pulmonary hypertension. Will continue to follow DNR/DNI CODE STATUS Time with Patient: Greater than 30
[2024-09-05] MEDS: BUMETANIDE 1 MG TAB PO SCH (16:29)
--- NOTE | 2024-09-05 18:03 | CA ---
Transthoracic Echo Report Name: Aide Lucas Age: 78 Gender: F : 1945 Exam Date: 09/05/2024 14:27 Exam Location: [facility] Ht (in): 63 Wt (lb): 160 Ordering Physician: Brijesh Corona MD ([id number]) Attending/Referring Phys: Head Custodian Katlyn Grubbs RDCS Procedure CPT: Indications: pericardial effusion followup study Cardiac Hx: Technical Quality: Good Contrast 1: Total Dose (mL): Contrast 2: Total Dose (mL): MEASUREMENTS (Male / Female) Normal Values FINDINGS Left Ventricle Right Ventricle Severe right ventricular dilatation. Right Atrium Left Atrium Mitral Valve Aortic Valve Tricuspid Valve Pulmonic Valve Pericardium Moderate pericardial effusion, located anteriorly. Small pericardial effusion, located posteriorly. Left pleural effusion. Aorta CONCLUSIONS Diagnosis pericardial effusion follow-up study Severe right ventricular and right atrial enlargement Dilated IVC Moderate pericardial effusion mostly anterior Previewed by: Dr. Albin Byrne MD (Electronically Signed) Final Date: 05 September 2024 18:02
--- NOTE | 2024-09-05 18:07 | CT ---
EXAMINATION TYPE: CT angio chest DATE OF EXAM: 09/05/2024 5:52 PM COMPARISON: Chest radiograph from one day prior. CT chest 12/06/2023. CLINICAL INDICATION: Female, 78 years old with history of pe vs pneumonia; SOB, pneumonia TECHNIQUE/CONTRAST: CTA scan of the thorax is performed with IV Contrast, patient injected with 100 ml mL of Isovue 370, MIP images are created and reviewed these are created on a separate workstation.. CT DLP: 249.1 mGycm, Automated exposure control for dose reduction was used. FINDINGS: Lungs/Pleura: No evidence of focal consolidation, pleural effusion or pneumothorax. Moderate left ple ural effusion with associated atelectasis. There is trace right pleural effusion. Associated atelecta sis present adjacent to the pleural effusion. Marked severe emphysema. Intralobular septal thickening . Airway: Large airways are patent. Heart: Cardiomegaly is demonstrated. Mild coronary artery calcifications present. Vasculature: There is no evidence for a filling defect within the pulmonary vasculature to suggest ac wiliam pulmonary embolism. The pulmonary artery is dilated up to 33 mm. Ascending thoracic aorta dilati on up to 47 mm Mediastinum: No gross evidence of adenopathy. Musculoskeletal: Mild disc degeneration changes are present throughout the thoracolumbar spine second nawaf to osteophyte formation and facet joint arthropathy. Soft Tissues/lymph nodes: Unremarkable. Lower neck: No significant findings. Upper Abdomen: Small amount of free fluid in the upper abdomen. Reflux of contrast into the IVC. Left hepatic lobe probable simple cyst. IMPRESSION: 1. No evidence of pulmonary embolism however there is There is evidence of right heart strain likely from #3. 2. Pulmonary hypertension with bilateral pleural effusions, pulmonary vascular congestion and cardio megaly, correlate with serum BNP. 3. 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 4. Moderate to severe emphysema. Follow up recommendations for incidental pulmonary nodules, if there are any, are per [employer] or [employer]. https://radiopaedia.org/articles/ogcoubaoii-slqyhoe-agezvmntd-[email or web address]-[email or web address]?lang=us [facility], , 09/05/2024 6:04 PM
--- NOTE | 2024-09-05 21:49 | PN ---
PROGRESS NOTE DATE OF SERVICE: 09/05/2024 SUBJECTIVE: This is an 78-year-old woman, who was admitted with CHF with acute exacerbation, who also has significant hypoxia. The patient is still on AIRVO. The most recent chest x- ray which I reviewed personally showed evidence of CHF and left pleural effusion also. Otherwise the D-dimer was elevated. COVID-19 testing was negative. The patient has multiple electrolyte abnormalities also. PAST MEDICAL HISTORY: Reviewed. REVIEW OF SYSTEMS: Fourteen-point review of systems negative except as mentioned earlier. PHYSICAL EXAMINATION: VITAL SIGNS: Pulse is 73, blood pressure n, respirations 20. HEENT: Conjunctivae normal. NECK: No JVD. CARDIOVASCULAR: S1, S2. RESPIRATIONS: A few scattered rhonchi. ABDOMEN: Soft and nontender. NERVOUS SYSTEM: Nonfocal. LABORATORY DATA: Sodium 132. Rest of the labs ia noted. Cortisol is 332.9. ASSESSMENT: 1. Shortness of breath, multifactorial with congestive heart failure with acute exacerbation with possible chronic obstructive pulmonary disease and asthma with acute exacerbation. 2. Left lower lobe pneumonia, possibly. 3. Hyponatremia. 4. Hypokalemia. 5. Elevated D-dimer. 6. Acute hypoxic respiratory failure, on AIRVO. 7. Hypertension. RECOMMENDATIONS: Recommended to continue with current management, continue symptomatic treatment. Recommended CT angio of the chest to complete the workup. Otherwise, 2D echo has been ordered. Guarded prognosis because of multiple complex medical conditions. See orders for details. MMODL / IJN: [id number] / MTDD
--- NOTE | 2024-09-06 09:11 | US ---
EXAMINATION TYPE: US venous doppler duplex LE LT DATE OF EXAM: 09/06/2024 8:40 AM COMPARISON: CLINICAL INDICATION: Female, 78 years old with history of pain, warm to the touch, swollen, left knee ; Swelling and pain, Pain TECHNIQUE: The lower extremity deep venous system is examined utilizing real time linear array sonog karen with graded compression, color doppler sonography, and spectral doppler. SIDE PERFORMED: Left FINDINGS: VESSELS IMAGED: Common Femoral Vein Deep Femoral Vein Greater Saphenous Vein * Femoral Vein Popliteal Vein Small Saphenous Vein * Proximal Calf Veins (* superficial vessels) Left Leg: Negative for DVT, Color Doppler imaging shows patency of the vessels. Spectral waveforms a re within normal limits. IMPRESSION: No evidence for DVT within the left lower extremity imaged from the groin to the upper calf. Subcutan eous soft tissue edema at the knee. [facility], , 09/06/2024 9:09 AM
[2024-09-06] MEDS: amLODIPine 2.5 MG TAB PO SCH (09:33)
[2024-09-06] MEDS: FUROSEMIDE 100 MG in SODIUM CHLORIDE 0.9% 90 ML IV SCH (11:41)
--- NOTE | 2024-09-06 11:43 | P.PN ---
Subjective HISTORY OF PRESENT ILLNESS: This is an 78-year-old female patient with no prior cardiac history but medical history significant for chronic hypoxic respiratory failure secondary to COPD and alpha 1 antitrypsin deficiency presented to the hospital with progressive exertional dyspnea associated with progressive bilateral lower extremity edema for the last few days. No symptoms of chest pain or chest discomfort but she felt she was experiencing severe congestions with no fever and no chills and no cough and no sputum production. No other cardiovascular symptoms of dizziness or lightheadedness or any feeling of heart racing or fluttering or presyncope or syncope. She developed severe bilateral lower extremities edema. When she presented to the hospital she was hypoxic requiring high flow oxygen. Normally she is on 2 L of oxygen continuously. Definitely her oxygen requirement has increased within the last few days and she has been doing pulse oximetry at home and noticed that her oxygen saturation has been low. She underwent further evaluation including EKG showing RBBB. NT proBNP came to be elevated at 5000. First set of troponin is unremarkable with chest x-ray showed finding consistent with pulmonary vascular congestions and left pleural effusion but CT scan of the chest showed no evidence of PE. Venous duplex study showed no evidence of DVT as well. The physical examination is remarkable for regular rhythm with a systolic murmur at the right and left upper sternal border with diminished breathing sounds bilaterally and bilateral rhonchi and severe bilateral lower extremities pitting edema September 01, 2024 The patient was seen and evaluated this morning. She is overall feeling better. She still have bilateral lower extremities edema. The pressure remains marginal but appears to be better today which she was started on midodrine yesterday. Am going to stop the midodrine and decrease the dose of Lasix from 40 mg IV twice daily to 20 mg IV twice daily giving the marginally low blood pressure and also giving the finding on the echo including severe pulmonary hypertension and moderate pericardial effusion without tamponade physiology. The physical examination is remarkable for bilateral lower extremities edema. The troponin came to be mildly abnormal and I would consider medical treatment in the absence of any chest pain. September 02, 2024 The patient was seen and evaluated this morning. She is still hypoxic requiring high flow oxygen she still have severe bilateral lower extremities edema. Her pressure is better and with that I am going to increase the dose of Lasix to 40 mg IV twice daily which she is hypokalemic and the potassium is in process to be replaced. The physical examination is remarkable for diminished breathing sounds bilaterally and severe bilateral lower extremities edema. September 03, 2024 The patient was seen and evaluated this morning. The bilateral lower extremitie s edema has somewhat improved but continues to be there. She is on Lasix IV. I would suggest continue the current dose of Lasix IV and will follow-up with the blood work from the morning which is still pending. Otherwise she remains hemodynamically stable. No symptoms of chest pain or chest discomfort. The physical examination is remarkable for moderate bilateral lower extremities pitting edema with diminished breathing sounds bilaterally. Definitely the edema has improved after we increase the dose of Lasix yesterday. 09/04/2024 Patient is seen and examined at bedside this a.m. She is sitting in the chair with a high flow nasal cannula oxygen. 2+ pitting edema bilateral lower extrem ity, mild crackles in lung gupta, minimal wheezing. Alert oriented, reports that symptomatically she feels better since the time for admission. Blood pressure is borderline low with SBP around 90s to 100 mmHg. 09/05/2024 Patient is seen and examined at bedside this a.m. She continues to be on high flow nasal cannula 1-2+ pitting edema bilateral extremity with mild crackles in lung gupta with minimal wheezing Alert oriented Reports symptomatically feeling better. Blood pressure and heart rates are within acceptable ranges kidney function and electrolytes are within acceptable ranges. 09/06/2024 Patient examined this morning at the bedside. She remains on Airvo. She continues to report shortness of breath. She is currently on oral Bumex. She also is complaining of her left knee hurting. Repeat limited echo reveals severe right ventricular and right atrial enlargement, dilated IVC, moderate pericardial effusion mostly anterior. Venous Doppler completed negative for DVT. Patient underwent chest CTA which was negative for pulmonary embolism. Evidence of right heart strain, pulmonary hypertension with bilateral pleural effusions, pulmonary vascular congestion, and cardiomegaly. Moderate to severe emphysema. PHYSICAL EXAM: VITAL SIGNS: Reviewed. GENERAL: Well-developed in no acute distress. NECK: Supple. No JVD or thyromegaly LUNGS: Respirations even and unlabored. Lungs with crackles bilaterally. HEART: Regular rate and rhythm. S1 and S2 heard. EXTREMITIES: Normal range of motion. No clubbing or cyanosis. Peripheral pulses intact. 2+ bilateral lower extremity edema ASSESSMENT: Shortness of breath Acute on chronic hypoxic respiratory failure Acute on chronic heart failure with preserved EF Acute Cor pulmonale Moderate pericardial effusion Severe pulmonary hypertension PLAN: Add amlodipine 2.5 mg daily Patient has been started on Lasix drip per pulmonary Daily weights, accurate intake and output, monitoring of kidney function Continue current cardiac medications including aspirin and Aldactone Further recommendations pending patient course Nurse practitioner note has been reviewed by physician. Signing provider agrees with the documented findings, assessment, and plan of care documented by PHYSICIAN PEDIATRICIAN as a scribe. Objective - Vital Signs Vital signs: Vital Signs Temp 97.6 F 09/06/24 07:47 Pulse 85 09/06/24 08:30 Resp 20 09/06/24 07:50 BP 119/77 09/06/24 07:47 Pulse Ox 92 L 09/06/24 07:47 FiO2 66 09/06/24 08:11 Intake & Output 09/05/24 09/06/24 09/06/24 18:59 06:59 18:59 Intake Total 1200 10 Output Total 675 400 250 Balance 525 -400 -240 Weight 74.5 kg Intake: IV 10 Invasive Line 3 10 Oral 1200 Output: Urine 675 400 250 Other: Voiding Method Indwelling Catheter Indwelling Catheter Indwelling Catheter # Bowel Movements 1 - Labs CBC & Chem 7: 09/05/24 07:04 09/05/24 07:04 Labs: Abnormal Lab Results - Last 24 Hours (Table) 09/06/24 Range/Units 10:30 C-Reactive Protein 4.8 H (<1.0) mg/dL
--- NOTE | 2024-09-06 11:57 | US ---
EXAMINATION TYPE: US chest DATE OF EXAM: 09/06/2024 COMPARISON: CT Angio Chest (09/05/2024) CLINICAL INDICATION: Female, 78 years old with history of shortness of breath; TECHNIQUE: Grayscale imaging of the chest. Targeted ultrasound of the posterior lower bilateral tobi thoraces FINDINGS: EXAM MEASUREMENTS: Right Pleural Effusion pocket size: 6.6 x 0.8 cm. Right skin surface to fluid distance: 2.1cm Fluid to lung tissue: 1.3cm Not enough fluid to the lung tissue to safely giovana/drain Left Pleural Effusion pocket size: 6.3m Left skin surface to fluid distance: 1.8cm Fluid to lung tissue: 3.3cm Left side marked for possible thoracentesis outside the dept. Pulmonologists are able to review the images in the patient?s EMR. IMPRESSIONS: Moderate left pleural effusion with marking performed. Trace right pleural effusion. [facility], Workstation: [id number], 09/06/2024 11:55 AM
--- NOTE | 2024-09-06 12:47 | XR ---
EXAMINATION TYPE: XR chest 1V portable DATE OF EXAM: 09/06/2024 12:27 PM COMPARISON: 09/04/2024 CLINICAL INDICATION: Female, 78 years old with history of post thoracentesis, , FINDINGS: Following left-sided thoracentesis, there is a trace 4 mm left apical pneumothorax demonstrated. Hear t remains more likely mildly enlarged. Mild interstitial density also remains. No significant pleural effusion is seen on the frontal view. IMPRESSION: Trace 4 mm left apical pneumothorax following thoracentesis. Trace pleural effusion may remain but no t well seen on the frontal view. [facility], Workstation: [id number], 09/06/2024 12:44 PM
--- NOTE | 2024-09-06 15:05 | P.PN ---
Subjective Progress Note Date: 09/06/24 This is an 78-year-old female patient with no prior cardiac history but medical history significant for chronic hypoxic respiratory failure secondary to COPD and alpha 1 antitrypsin deficiency presented to the hospital with progressive exertional dyspnea associated with progressive bilateral lower extremity edema for the last few days. No symptoms of chest pain or chest discomfort but she felt she was experiencing severe congestions with no fever and no chills and no cough and no sputum production. No other cardiovascular symptoms of dizziness or lightheadedness or any feeling of heart racing or fluttering or presyncope or syncope. She developed severe bilateral lower extremities edema. When she presented to the hospital she was hypoxic requiring high flow oxygen. Normally she is on 2 L of oxygen continuously. Definitely her oxygen requirement has increased within the last few days and she has been doing pulse oximetry at home and noticed that her oxygen saturation has been low. She underwent further evaluation including EKG showing RBBB. NT proBNP came to be elevated at 5000. First set of troponin is unremarkable with chest x-ray showed finding consistent with pulmonary vascular congestions and left pleural effusion but CT scan of the chest showed no evidence of PE. Venous duplex study showed no evidence of DVT as well. The physical examination is remarkable for regular rhythm with a systolic murmur at the right and left upper sternal border with diminished breathing sounds bilaterally and bilateral rhonchi and severe bilateral lower extremities pitting edema. I initially saw this patient in my office. She was hypoxic and she was in significant volume overload with extensive lower extremity edema. I directed this patient to the Emergency Department. After being in the hospital for around 3 days, the patient remained hypoxic and the patient remains on Airvo at 45 L with an FiO2 of 65%. Based on that, a pulmonary consultation was requested. I reviewed the CT of the chest that was done on this patient. The patient has extensive emphysematous changes rubina aterally and the patient also has a moderate-sized left-sided pleural effusion. No airspace disease. No consolidation. No pneumonias. There is also a new moderate to small size pericardial effusion. Echocardiogram was completed on 08/31/2024 and the patient was found to have a preserved LV function with an EF of around 65% and the patient also had severe RV dilatation, reduced RV global systolic function and severe pulmonary hypertension along with moderate pericardial effusion without signs of any tamponade. The patient had severe tricuspid regurgitation. Estimated right ventricular systolic pressure was 94. For now, the patient is on Lasix 40 mg IV every 12 hours. Monitoring her fluid balance has been essentially negative and the patient has been -2.2 L over the past 24 hours. Most recent electrolytes show a sodium level of 132, potassium of 3.6, BUN 31 with a creatinine 0.7. The white cell count is at 8.8 with a hemoglobin 17.3. She is currently on Lasix 40 mg IV every 12 hours. She is also on Aldactone 25 mg p.o. daily. She remains on IV heparin. The procalcitonin level was 0.08. Troponins were nonelevated. On 09/05/2024, the patient is being seen for a follow-up. The patient is calm and comfortable. The patient is currently on Airvo 45 L with an FiO2 of 65%. She remains on Bumex 1 mg p.o. twice daily and Aldactone 25 mg p.o. daily. She has been diuresing well over the past several days and the patient has been negative fluid balance of 1.1 L over the past 24 hours. No significant shortness of breath at rest. Continues to have significant amount of edema lower extremities bilaterally. The white cell count is at 8.4 with a hemoglobin 17.4 and a jurgen telet count of 167. BUN is 30 with a creatinine of of 0.7. Sodium level is at 132 and a potassium level is at 3.5. Viral screen was negative. Chest x-ray from yesterday was consistent with COPD with chronic emphysematous changes and cardiomegaly and small left-sided pleural effusion. The patient also was noted to have a moderate-sized pericardial effusion without signs of tamponade. The patient was taken off the IV Lasix and the patient was started on Bumex in combination with Aldactone. 09/06/2024, the patient remains on Airvo 45 L with FiO2 of 50%. The fluid balance has been +125 cc over the past 24 hours. Based on that, making recommendations to start the patient on Lasix drip at 5 mg an hour. She continues to have significant amount of edema lower extremities bilaterally. Further workup was ordered by the medical group including a Doppler of lower extremity that showed no evidence of any DVT and CTA of the chest that showed no evidence of any pulmonary embolism. There was extensive bilateral severe emphysematous changes and a chronic left-sided pleural effusion. Based on that, I performed a bedside thoracentesis this patient and I drained approximately 800 cc of pleural fluid from the left lung. The patient tolerated the procedure well without any complications. The fluid will be sent for analysis. The white cell count is 8.4, hemoglobin is 17.4 and platelet count of 167. BUN is 30 with a creatinine of 0.7 and sodium is at 132 and a potassium level is at 3.5. Objective - Vital Signs Vital signs: Vital Signs Temp 97.6 F 09/06/24 07:47 Pulse 85 09/06/24 08:30 Resp 20 09/06/24 07:50 BP 119/77 09/06/24 07:47 Pulse Ox 92 L 09/06/24 07:47 FiO2 66 09/06/24 08:11 Intake & Output 09/05/24 09/06/24 09/06/24 18:59 06:59 18:59 Intake Total 1200 10 Output Total 675 400 250 Balance 525 -400 -240 Weight 74.5 kg Intake: IV 10 Invasive Line 3 10 Oral 1200 Output: Urine 675 400 250 Other: Voiding Method Indwelling Catheter Indwelling Catheter Indwelling Catheter # Bowel Movements 1 - Exam the patient appeared well nourished and normally developed. Vital signs as documented. The patient is currently on Airvo with flow of 45 L with FiO2 of 50 % Head exam is unremarkable. No scleral icterus or corneal arcus noted. Neck is with jugular venous distension, thyromegaly, or carotid bruits. Carotid upstrokes are brisk bilaterally. Lungs a marked diminished breath sounds bilateral especially in the left lung base Cardiac exam reveals the PMI to be normally sized and situated. Rhythm is regular. First and second heart sounds normal. No murmurs, rubs or gallops. There is accentuation of second heart sound Abdominal exam reveals normal bowel sounds, no masses, no organomegaly and no aortic enlargement. Extremities are edematous and both femoral and pedal pulses are normal. Examination of the skin revealed no evidence of significant rashes, suspicious appearing nevi or other concerning lesions. Neurologically, the patient is awake and alert and the patient does not have any focal neurological deficit. Cranial nerves are essentially intact. - Labs CBC & Chem 7: 09/05/24 07:04 09/05/24 07:04 Assessment and Plan Plan: acute on chronic hypoxic respiratory failure. The patient is currently on Airvo at 45 L with an FiO2 of 50 %. She is typically on home O2 at 3 L/min nasal cannula. Reviewed the CT of the chest. No evidence of any pulm embolism. There are some atelectatic changes and small left-sided pleural effusion. The patient also has a moderate-sized pericardial effusion without signs of tamponade. Chronic right-sided heart failure with severe pulmonary hypertension and severe tricuspid regurgitation Chronic lower extremity edema with obvious signs of fluid overload Moderate-sized pericardial effusion, without signs of tamponade Severe pulmonary hypertension, WHO group 3 Advanced and chronic COPD with history of alpha 1 antitrypsin deficiency. The patient has MZ disease. She has been maintained on a combination of budesonide and Perforomist and Yupelri an outpatient basis in addition to albuterol nebulized treatments on as-needed basis Chronic anxiety Panic attacks Gout Urinary retention, seen by urology. Alba catheter has been inserted. Plan Titrate Airvo to maintain saturation above 90%. Currently on 45 L with an FiO2 of 50% Thoracentesis of the left lung was done and a total of 800 cc of pleural fluid was aspirated. The fluid will be sent for analysis. Start the patient on Lasix drip at 5 mg an hour. Attempt to maintain a negative fluid balance Continue bronchodilators Titrate oxygen flow to maintain saturation above 90% Reviewed the CAT scan of the chest. Reviewed the Doppler of the lower extremities. Will discuss the pericardial effusion with cardiology Prognosis extremely poor based on above-mentioned comorbidities. Furthermore, she has a very poor baseline performance and functional status. Unfortunately, not a whole lot can be offered from a pulmonary standpoint. This is a group 3 pulmonary hypertension. Will continue to follow DNR/DNI CODE STATUS Time with Patient: Greater than 30
--- NOTE | 2024-09-06 15:06 | P.PCN ---
Date of Procedure: 09/06/24 Preoperative Diagnosis: Pleural effusion, left Postoperative Diagnosis: Pleural effusion, left Procedure(s) Performed: Thoracentesis, left Anesthesia: local Surgeon: Moshe Jon Estimated Blood Loss (ml): 0 Pathology: other Condition: stable Disposition: floor Operative Findings: The procedure was done with ultrasound guidance. Left-sided pleural effusion was identified and marked. A time out was performed and the chest x-ray was reviewed, the appropriate side was confirmed and marked. My hands were washed immediately prior to the procedure. I wore a surgical cap, mask with protective eyewear, sterile gown and sterile gloves throughout the procedure. The patient was prepped and draped in a sterile manner using chlorhexidine scrub after the appropriate level was percussed and confirmed by ultrasound. 1% lidocaine was used to anesthesize the skin, subcutaneous tissue, superior aspect of the rib periosteum and parietal pleura. A finder needle was then introduced over the superior aspect of the rib to locate the pleural fluid; 2colored fluid was aspirated at a depth of approximately 2 cm. A 10-blade scalpel was used to moises the skin at the insertion site. The [id number] needle was then introduced through the skin incision into the pleural space using negative aspiration pressure and the red colometric indicator to confirm appropriate positioning of the needle. The thoracentesis catheter was then threaded without difficulty. 800 ml of turbid colored fluid was removed without difficulty. The catheter was then removed. No immediate complications were noted during the procedure. A post-procedure chest x-ray is pending at the time of this note. The fluid will be sent for studies. Estimated blood loss is 0cc
[2024-09-06 16:50] LABS: Appearance,BF Clear (Clear)
[2024-09-06 19:05] LABS: Glucose, BF Source Pleural Fluid; Glucose, Body Fluid 124 mg/dL; LDH, Body Fluid Source Pleural Fluid; T. Protein, Body Fluid Source Pleural Fluid; Total Protein, Body Fluid 1920 mg/dL
[2024-09-06] MEDS: HYDROcodone/APAP 5-325MG 1 EACH TAB PO PRN (21:55)
--- NOTE | 2024-09-07 01:40 | PN ---
PROGRESS NOTE DATE OF SERVICE: 09/06/2024 SUBJECTIVE: This is an 78-year-old woman, who was admitted with shortness of breath, possibly multifactorial with COPD, CHF, asthma exacerbation as well as possibly left lower lobe pneumonia, is being closely monitored at this time. The patient had a CT angio of the chest, which I reviewed personally, which showed no evidence of pulmonary embolism with pulmonary hypertension with ascending thoracic aorta and multiple abnormalities as well. Dr. Jon aspirated, performed thoracocenteses of the left chest, obtained about 800 mL of straw-colored fluid, slightly turbid. PAST MEDICAL HISTORY: Reviewed. REVIEW OF SYSTEMS: A 14-point review of systems is negative except as mentioned earlier. CURRENT MEDICATIONS: Reviewed. PHYSICAL EXAMINATION: VITAL SIGNS: Pulse is 81, blood pressure 103/64, respirations 20. HEENT: Conjunctivae normal. NECK: No JVD. CARDIOVASCULAR: S1, S2. RESPIRATIONS: Breath sounds diminished at the bases. A few scattered rhonchi and crackles. ABDOMEN: Soft. NERVOUS SYSTEM: Nonfocal. LABORATORY DATA: Hemoglobin is 17.4. The fluid values are pending. ASSESSMENT: 1. Shortness of breath multifactorial with congestive heart failure acute exacerbation as well as chronic obstructive pulmonary disease acute exacerbation, asthma acute exacerbation. 2. Left pleural effusion, status post thoracocentesis. 3. Possible acute on chronic cor pulmonale and as well as moderate pericardial effusion. 4. Possible left lower lobe pneumonia. 5. Hyponatremia. 6. Hypokalemia. 7. Elevated D-dimer. 8. Acute hypoxic respiratory failure, on AIRVO. 9. Hypertension. RECOMMENDATIONS: Recommended to continue current management. Continue symptomatic treatment. Continue with bronchodilators, add incentive spirometry. The patient also had bilateral leg swelling also indicating possibly cor pulmonale. Venous ultrasound was negative. 2D echo showed severe pulmonary hypertension and severely dilated right ventricle also, and moderate pericardial effusion without evidence of tamponade. I reviewed the CT scan and recommend to continue current medications. The AIRVO oxygenation is slightly improving. I would recommend to follow closely with Dr. Jon. Further recommendations to follow. See orders for further details. The patient has severe emphysema. MMODL / IJN: [id number] /
[2024-09-07 07:10] LABS: Basophils # (A) 0.1 k/uL (0-0.2); Basophils % (A) 1 %; Eosinophils % (A) 0 %; HCT 53.8 % (34.0-46.0); HGB 16.8 gm/dL (11.4-16.0); Lymphocytes # (A) 0.6 k/uL (1.0-4.8); Lymphocytes % (A) 5 %; MCH 30.4 pg (25.0-35.0); MCHC 31.2 g/dL (31.0-37.0); MCV 97.4 fL (80.0-100.0); Mean Platelet Volume 9.7; Monocytes # (A) 0.8 k/uL (0-1.0); Monocytes % (A) 7 %; Neutrophils % (A) 85 %; Platelet Count 153 k/uL (150-450); RBC 5.53 m/uL (3.80-5.40); RDW 15.8 % (11.5-15.5); WBC 10.6 k/uL (3.8-10.6)
[2024-09-07 07:27] LABS: African American GFR (CKD) >90 (>60 ml/min/1.73 sqM); Anion Gap 7 mmol/L; Blood Urea Nitrogen 29 mg/dL (7-17); Carbon Dioxide 33 mmol/L (22-30); Chloride 90 mmol/L (98-107); Glucose 136 mg/dL (74-99); Non-African American GFR(CKD) 78 (>60 ml/min/1.73 sqM); Potassium 3.4 mmol/L (3.5-5.1); Sodium 130 mmol/L (137-145)
--- NOTE | 2024-09-07 11:20 | P.PN ---
Subjective HISTORY OF PRESENT ILLNESS: This is an 78-year-old female patient with no prior cardiac history but medical history significant for chronic hypoxic respiratory failure secondary to COPD and alpha 1 antitrypsin deficiency presented to the hospital with progressive exertional dyspnea associated with progressive bilateral lower extremity edema for the last few days. No symptoms of chest pain or chest discomfort but she felt she was experiencing severe congestions with no fever and no chills and no cough and no sputum production. No other cardiovascular symptoms of dizziness or lightheadedness or any feeling of heart racing or fluttering or presyncope or syncope. She developed severe bilateral lower extremities edema. When she presented to the hospital she was hypoxic requiring high flow oxygen. Normally she is on 2 L of oxygen continuously. Definitely her oxygen requirement has increased within the last few days and she has been doing pulse oximetry at home and noticed that her oxygen saturation has been low. She underwent further evaluation including EKG showing RBBB. NT proBNP came to be elevated at 5000. First set of troponin is unremarkable with chest x-ray showed finding consistent with pulmonary vascular congestions and left pleural effusion but CT scan of the chest showed no evidence of PE. Venous duplex study showed no evidence of DVT as well. The physical examination is remarkable for regular rhythm with a systolic murmur at the right and left upper sternal border with diminished breathing sounds bilaterally and bilateral rhonchi and severe bilateral lower extremities pitting edema September 01, 2024 The patient was seen and evaluated this morning. She is overall feeling better. She still have bilateral lower extremities edema. The pressure remains marginal but appears to be better today which she was started on midodrine yesterday. Am going to stop the midodrine and decrease the dose of Lasix from 40 mg IV twice daily to 20 mg IV twice daily giving the marginally low blood pressure and also giving the finding on the echo including severe pulmonary hypertension and moderate pericardial effusion without tamponade physiology. The physical examination is remarkable for bilateral lower extremities edema. The troponin came to be mildly abnormal and I would consider medical treatment in the absence of any chest pain. September 02, 2024 The patient was seen and evaluated this morning. She is still hypoxic requiring high flow oxygen she still have severe bilateral lower extremities edema. Her pressure is better and with that I am going to increase the dose of Lasix to 40 mg IV twice daily which she is hypokalemic and the potassium is in process to be replaced. The physical examination is remarkable for diminished breathing sounds bilaterally and severe bilateral lower extremities edema. September 03, 2024 The patient was seen and evaluated this morning. The bilateral lower extremitie s edema has somewhat improved but continues to be there. She is on Lasix IV. I would suggest continue the current dose of Lasix IV and will follow-up with the blood work from the morning which is still pending. Otherwise she remains hemodynamically stable. No symptoms of chest pain or chest discomfort. The physical examination is remarkable for moderate bilateral lower extremities pitting edema with diminished breathing sounds bilaterally. Definitely the edema has improved after we increase the dose of Lasix yesterday. 09/04/2024 Patient is seen and examined at bedside this a.m. She is sitting in the chair with a high flow nasal cannula oxygen. 2+ pitting edema bilateral lower extrem ity, mild crackles in lung gupta, minimal wheezing. Alert oriented, reports that symptomatically she feels better since the time for admission. Blood pressure is borderline low with SBP around 90s to 100 mmHg. 09/05/2024 Patient is seen and examined at bedside this a.m. She continues to be on high flow nasal cannula 1-2+ pitting edema bilateral extremity with mild crackles in lung gupta with minimal wheezing Alert oriented Reports symptomatically feeling better. Blood pressure and heart rates are within acceptable ranges kidney function and electrolytes are within acceptable ranges. 09/06/2024 Patient examined this morning at the bedside. She remains on Airvo. She continues to report shortness of breath. She is currently on oral Bumex. She also is complaining of her left knee hurting. Repeat limited echo reveals severe right ventricular and right atrial enlargement, dilated IVC, moderate pericardial effusion mostly anterior. Venous Doppler completed negative for DVT. Patient underwent chest CTA which was negative for pulmonary embolism. Evidence of right heart strain, pulmonary hypertension with bilateral pleural effusions, pulmonary vascular congestion, and cardiomegaly. Moderate to severe emphysema. 09/07/2024 Patient examined this morning at the bedside. She is sitting up in the chair. She continues to report shortness of breath. She denies any chest pain or pressure. She underwent left-sided thoracentesis yesterday with removal of 800 cc. Postprocedure chest x-ray revealed trace pneumothorax. Blood pressure is low in the 90s. PHYSICAL EXAM: VITAL SIGNS: Reviewed. GENERAL: Well-developed in no acute distress. NECK: Supple. No JVD or thyromegaly LUNGS: Respirations even and unlabored. Lungs with crackles bilaterally. HEART: Regular rate and rhythm. S1 and S2 heard. EXTREMITIES: Normal range of motion. No clubbing or cyanosis. Peripheral puls es intact. 2+ bilateral lower extremity edema ASSESSMENT: Shortness of breath Acute on chronic hypoxic respiratory failure Acute on chronic heart failure with preserved EF Acute Cor pulmonale Moderate pericardial effusion Severe pulmonary hypertension Left pleural effusion, status post thoracentesis with removal 800 cc, 09/06/2024 Trace pneumothorax, post thoracentesis PLAN: Discontinue amlodipine Continue IV Lasix drip per pulmonary medicine Daily weights, accurate intake and output, monitoring of kidney function Continue current cardiac medications including aspirin and Aldactone Further recommendations pending patient course Nurse practitioner note has been reviewed by physician. Signing provider agrees with the documented findings, assessment, and plan of care documented by [employer] as a scribe. Objective - Vital Signs Vital signs: Vital Signs Temp 97.4 F L 09/07/24 08:20 Pulse 80 09/07/24 08:55 Resp 18 09/07/24 08:20 BP 90/64 09/07/24 08:20 Pulse Ox 92 L 09/07/24 08:32 FiO2 65 09/07/24 08:32 Intake & Output 09/06/24 09/07/24 09/07/24 18:59 06:59 18:59 Intake Total 1510 82.583 240 Output Total 600 200 Balance 910 -117.417 240 Weight 72.5 kg Intake: IV 10 Invasive Line 3 10 Intake, IV Titration 82.583 Amount Furosemide 100 mg In 82.583 Sodium Chloride 0.9% 90 ml @ 5 MG/HR 5 mls/hr IV .Q20H CASIE Rx#:[id number] Oral 1500 240 Output: Urine 600 200 Other: Voiding Method Indwelling Catheter Indwelling Catheter Indwelling Catheter # Bowel Movements 1 - Labs CBC & Chem 7: 09/07/24 06:14 09/07/24 06:14 Labs: Abnormal Lab Results - Last 24 Hours (Table) 09/06/24 09/07/24 09/07/24 Range/Units 10:30 06:14 06:14 RBC 5.53 H (3.80-5.40) m/uL Hgb 16.8 H (11.4-16.0) gm/dL Hct 53.8 H (34.0-46.0) % RDW 15.8 H (11.5-15.5) % Neutrophils # 9.0 H (1.3-7.7) k/uL Lymphocytes # 0.6 L (1.0-4.8) k/uL Sodium 130 L (137-145) mmol/L Potassium 3.4 L (3.5-5.1) mmol/L Chloride 90 L (98-107) mmol/L Carbon Dioxide 33 H (22-30) mmol/L BUN 29 H (7-17) mg/dL Glucose 136 H (74-99) mg/dL Calcium 8.0 L (8.4-10.2) mg/dL C-Reactive Protein 4.8 H (<1.0) mg/dL Microbiology - Last 24 Hours (Table) 09/06/24 11:30 Gram Stain - Preliminary Pleural Fluid Body Fluid Culture - Preliminary
[2024-09-07] MEDS: metOLazone 5 MG TAB PO SCH (12:01)
[2024-09-07] MEDS: methylPREDNISolone SOD SUCCI 40 MG/ML 1 ML VIAL IV SCH (12:01)
--- NOTE | 2024-09-07 20:46 | PN ---
PROGRESS NOTE DATE OF SERVICE: 09/07/2024 SUBJECTIVE: This is an 78-year-old woman, who was admitted with shortness of breath and COPD with acute exacerbation, still on AIRVO at this time. The patient is rather comfortable. The patient also had pleural effusion, which was tapped by Dr. Jon. The final results are pending at this time. PAST MEDICAL HISTORY: Reviewed. REVIEW OF SYSTEMS: A 14-point review of systems is negative except as mentioned earlier. CURRENT MEDICATIONS: Reviewed. PHYSICAL EXAMINATION: VITAL SIGNS: Pulse is 72, blood pressure 92/59, respirations 19. HEENT: Conjunctivae normal. NECK: No JVD. CARDIOVASCULAR: S1, S2. RESPIRATIONS: Breath sounds diminished at the bases. A few scattered rhonchi. ABDOMEN: Soft. NERVOUS SYSTEM: Nonfocal. LABORATORY DATA: Reviewed. ASSESSMENT: 1. Shortness of breath, possibly multifactorial with congestive heart failure with acute exacerbation as well as chronic obstructive pulmonary disease with acute exacerbation and asthma with acute exacerbation, on AIRVO. 2. Left pleural effusion, status post thoracocentesis. 3. Acute on chronic cor pulmonale as well as moderate pericardial effusion. 4. Left lower lobe pneumonia, possibly gram-negative. 5. Hyponatremia. 6. Hypokalemia. 7. Elevated D-dimer. 8. Hypertension. RECOMMENDATIONS: Recommended to continue with current management, continue symptomatic treatment. Continue with the bronchodilators. Continue with AIRVO. Try to titrate AIRVO down. Continue with intensive bronchodilators. Otherwise, the patient is on Lasix drip at this time. Continue with the steroids. Guarded prognosis. Closely follow with Pulmonary. Repeat labs in the morning. Further recommendations to follow. MMODL / IJN: [id number] /
--- NOTE | 2024-09-07 21:49 | P.PN ---
Subjective Progress Note Date: 09/07/24 This is an 78-year-old female patient with no prior cardiac history but medical history significant for chronic hypoxic respiratory failure secondary to COPD and alpha 1 antitrypsin deficiency presented to the hospital with progressive exertional dyspnea associated with progressive bilateral lower extremity edema for the last few days. No symptoms of chest pain or chest discomfort but she felt she was experiencing severe congestions with no fever and no chills and no cough and no sputum production. No other cardiovascular symptoms of dizziness or lightheadedness or any feeling of heart racing or fluttering or presyncope or syncope. She developed severe bilateral lower extremities edema. When she presented to the hospital she was hypoxic requiring high flow oxygen. Normally she is on 2 L of oxygen continuously. Definitely her oxygen requirement has increased within the last few days and she has been doing pulse oximetry at home and noticed that her oxygen saturation has been low. She underwent further evaluation including EKG showing RBBB. NT proBNP came to be elevated at 5000. First set of troponin is unremarkable with chest x-ray showed finding consistent with pulmonary vascular congestions and left pleural effusion but CT scan of the chest showed no evidence of PE. Venous duplex study showed no evidence of DVT as well. The physical examination is remarkable for regular rhythm with a systolic murmur at the right and left upper sternal border with diminished breathing sounds bilaterally and bilateral rhonchi and severe bilateral lower extremities pitting edema. I initially saw this patient in my office. She was hypoxic and she was in significant volume overload with extensive lower extremity edema. I directed this patient to the Emergency Department. After being in the hospital for around 3 days, the patient remained hypoxic and the patient remains on Airvo at 45 L with an FiO2 of 65%. Based on that, a pulmonary consultation was requested. I reviewed the CT of the chest that was done on this patient. The patient has extensive emphysematous changes rubina aterally and the patient also has a moderate-sized left-sided pleural effusion. No airspace disease. No consolidation. No pneumonias. There is also a new moderate to small size pericardial effusion. Echocardiogram was completed on 08/31/2024 and the patient was found to have a preserved LV function with an EF of around 65% and the patient also had severe RV dilatation, reduced RV global systolic function and severe pulmonary hypertension along with moderate pericardial effusion without signs of any tamponade. The patient had severe tricuspid regurgitation. Estimated right ventricular systolic pressure was 94. For now, the patient is on Lasix 40 mg IV every 12 hours. Monitoring her fluid balance has been essentially negative and the patient has been -2.2 L over the past 24 hours. Most recent electrolytes show a sodium level of 132, potassium of 3.6, BUN 31 with a creatinine 0.7. The white cell count is at 8.8 with a hemoglobin 17.3. She is currently on Lasix 40 mg IV every 12 hours. She is also on Aldactone 25 mg p.o. daily. She remains on IV heparin. The procalcitonin level was 0.08. Troponins were nonelevated. On 09/05/2024, the patient is being seen for a follow-up. The patient is calm and comfortable. The patient is currently on Airvo 45 L with an FiO2 of 65%. She remains on Bumex 1 mg p.o. twice daily and Aldactone 25 mg p.o. daily. She has been diuresing well over the past several days and the patient has been negative fluid balance of 1.1 L over the past 24 hours. No significant shortness of breath at rest. Continues to have significant amount of edema lower extremities bilaterally. The white cell count is at 8.4 with a hemoglobin 17.4 and a jurgen telet count of 167. BUN is 30 with a creatinine of of 0.7. Sodium level is at 132 and a potassium level is at 3.5. Viral screen was negative. Chest x-ray from yesterday was consistent with COPD with chronic emphysematous changes and cardiomegaly and small left-sided pleural effusion. The patient also was noted to have a moderate-sized pericardial effusion without signs of tamponade. The patient was taken off the IV Lasix and the patient was started on Bumex in combination with Aldactone. 09/06/2024, the patient remains on Airvo 45 L with FiO2 of 50%. The fluid balance has been +125 cc over the past 24 hours. Based on that, making recommendations to start the patient on Lasix drip at 5 mg an hour. She continues to have significant amount of edema lower extremities bilaterally. Further workup was ordered by the medical group including a Doppler of lower extremity that showed no evidence of any DVT and CTA of the chest that showed no evidence of any pulmonary embolism. There was extensive bilateral severe emphysematous changes and a chronic left-sided pleural effusion. Based on that, I performed a bedside thoracentesis this patient and I drained approximately 800 cc of pleural fluid from the left lung. The patient tolerated the procedure well without any complications. The fluid will be sent for analysis. The white cell count is 8.4, hemoglobin is 17.4 and platelet count of 167. BUN is 30 with a creatinine of 0.7 and sodium is at 132 and a potassium level is at 3.5. 09/07/2024, the patient is being seen for a follow-up. The patient remains on Airvo at 45 L and FiO2 of 65%. Pulse ox is in the order of 92%. Remains dependent on high flow oxygen. She continues to diurese with Lasix drip at 5 mg an hour. She is postthoracentesis and a total of 800 cc of pleural fluid was aspirated from the left lung. The pleural fluid was a transudate. The chemistry that showed low LDH and low protein. The white cell count was also low with a lymphocytic predominance. The patient has no specific complaints. The white cell count is at 5.6, hemoglobin is 16.6 and a platelet count is at 153. Sodium is at 130, BUN 29 with a creatinine of 0.7. K level is at 3.4. R taisa on DuoNeb updrafts. Will start IV Solu-Medrol. Objective - Vital Signs Vital signs: Vital Signs Temp 97.4 F L 09/07/24 08:20 Pulse 80 09/07/24 08:55 Resp 18 09/07/24 08:20 BP 90/64 09/07/24 08:20 Pulse Ox 92 L 09/07/24 08:32 FiO2 65 09/07/24 08:32 Intake & Output 09/06/24 09/07/24 09/07/24 18:59 06:59 18:59 Intake Total 1510 82.583 240 Output Total 600 200 Balance 910 -117.417 240 Weight 72.5 kg Intake: IV 10 Invasive Line 3 10 Intake, IV Titration 82.583 Amount Furosemide 100 mg In 82.583 Sodium Chloride 0.9% 90 ml @ 5 MG/HR 5 mls/hr IV .Q20H [facility] Rx#:[id number] Oral 1500 240 Output: Urine 600 200 Other: Voiding Method Indwelling Catheter Indwelling Catheter Indwelling Catheter # Bowel Movements 1 - Exam the patient appeared well nourished and normally developed. Vital signs as documented. The patient is currently on Airvo with flow of 45 L with FiO2 of 50 % Head exam is unremarkable. No scleral icterus or corneal arcus noted. Neck is with jugular venous distension, thyromegaly, or carotid bruits. Carotid upstrokes are brisk bilaterally. Lungs a marked diminished breath sounds bilateral especially in the left lung base Cardiac exam reveals the PMI to be normally sized and situated. Rhythm is regular. First and second heart sounds normal. No murmurs, rubs or gallops. There is accentuation of second heart sound Abdominal exam reveals normal bowel sounds, no masses, no organomegaly and no aortic enlargement. Extremities are edematous and both femoral and pedal pulses are normal. Examination of the skin revealed no evidence of significant rashes, suspicious appearing nevi or other concerning lesions. Neurologically, the patient is awake and alert and the patient does not have any focal neurological deficit. Cranial nerves are essentially intact. - Labs CBC & Chem 7: 09/07/24 06:14 09/07/24 06:14 Labs: Abnormal Lab Results - Last 24 Hours (Table) 09/06/24 09/07/24 09/07/24 Range/Units 10:30 06:14 06:14 RBC 5.53 H (3.80-5.40) m/uL Hgb 16.8 H (11.4-16.0) gm/dL Hct 53.8 H (34.0-46.0) % RDW 15.8 H (11.5-15.5) % Neutrophils # 9.0 H (1.3-7.7) k/uL Lymphocytes # 0.6 L (1.0-4.8) k/uL Sodium 130 L (137-145) mmol/L Potassium 3.4 L (3.5-5.1) mmol/L Chloride 90 L (98-107) mmol/L Carbon Dioxide 33 H (22-30) mmol/L BUN 29 H (7-17) mg/dL Glucose 136 H (74-99) mg/dL Calcium 8.0 L (8.4-10.2) mg/dL C-Reactive Protein 4.8 H (<1.0) mg/dL Microbiology - Last 24 Hours (Table) 09/06/24 11:30 Gram Stain - Preliminary Pleural Fluid Body Fluid Culture - Preliminary Assessment and Plan Plan: acute on chronic hypoxic respiratory failure. The patient is currently on Airvo at 45 L with an FiO2 of 65 %. She is typically on home O2 at 3 L/min nasal cannula. Reviewed the CT of the chest. No evidence of any pulm embolism. There are some atelectatic changes and small left-sided pleural effusion. The patient also has a moderate-sized pericardial effusion without signs of tamponade. Patient is postthoracentesis of the left lung that was done on 09/06/2024. Pleural fluid is a transudate. Currently on Lasix drip at 5 mg an hour. Chronic right-sided heart failure with severe pulmonary hypertension and severe tricuspid regurgitation Chronic lower extremity edema with obvious signs of fluid overload Moderate-sized pericardial effusion, without signs of tamponade Severe pulmonary hypertension, WHO group 3 Advanced and chronic COPD with history of alpha 1 antitrypsin deficiency. The patient has MZ disease. She has been maintained on a combination of budesonide and Perforomist and Yupelri an outpatient basis in addition to albuterol nebulized treatments on as-needed basis Chronic anxiety Panic attacks Gout Urinary retention, seen by urology. Alba catheter has been inserted. Plan Titrate Airvo to maintain saturation above 90%. Currently on 45 L with an FiO2 of 65% FiO2 Thoracentesis of the left lung was done and a total of 800 cc of pleural fluid was aspirated. The fluid is a transudate Start the patient on Lasix drip at 5 mg an hour. Attempt to maintain a negative fluid balance Add Zaroxolyn 5 mg p.o. twice a day Start IV Solu-Medrol 40 mg every 8 hours Continue bronchodilators Titrate oxygen flow to maintain saturation above 90% Reviewed the CAT scan of the chest. Reviewed the Doppler of the lower extremities. Will discuss the pericardial effusion with cardiology Prognosis extremely poor based on above-mentioned comorbidities. Furthermore, she has a very poor baseline performance and functional status. Unfortunately, not a whole lot can be offered from a pulmonary standpoint. This is a group 3 pulmonary hypertension. Will continue to follow DNR/DNI CODE STATUS Time with Patient: Greater than 30
[2024-09-08 07:01] LABS: Basophils % (A) 0 %; Eosinophils % (A) 0 %; HCT 50.2 % (34.0-46.0); HGB 15.6 gm/dL (11.4-16.0); Hypochromasia Slight; Lymphocytes # (A) 0.3 k/uL (1.0-4.8); Lymphocytes % (A) 3 %; MCH 30.2 pg (25.0-35.0); MCHC 31.1 g/dL (31.0-37.0); MCV 97.1 fL (80.0-100.0); Mean Platelet Volume 9.9; Monocytes # (A) 0.4 k/uL (0-1.0); Monocytes % (A) 4 %; Neutrophils # (A) 8.6 k/uL (1.3-7.7); Neutrophils % (A) 91 %; Platelet Count 154 k/uL (150-450); RBC 5.18 m/uL (3.80-5.40); RDW 15.2 % (11.5-15.5); WBC 9.5 k/uL (3.8-10.6)
[2024-09-08 07:21] LABS: African American GFR (CKD) 87 (>60 ml/min/1.73 sqM); Anion Gap 6 mmol/L; Blood Urea Nitrogen 34 mg/dL (7-17); Carbon Dioxide 34 mmol/L (22-30); Chloride 89 mmol/L (98-107); Glucose 131 mg/dL (74-99); Non-African American GFR(CKD) 76 (>60 ml/min/1.73 sqM); Potassium 3.3 mmol/L (3.5-5.1); Sodium 129 mmol/L (137-145)
[2024-09-08] MEDS: FUROSEMIDE 10 MG/ML 4 ML VIAL IV SCH (12:15)
--- NOTE | 2024-09-08 13:20 | P.PN ---
Subjective HISTORY OF PRESENT ILLNESS: This is an 78-year-old female patient with no prior cardiac history but medical history significant for chronic hypoxic respiratory failure secondary to COPD and alpha 1 antitrypsin deficiency presented to the hospital with progressive exertional dyspnea associated with progressive bilateral lower extremity edema for the last few days. No symptoms of chest pain or chest discomfort but she felt she was experiencing severe congestions with no fever and no chills and no cough and no sputum production. No other cardiovascular symptoms of dizziness or lightheadedness or any feeling of heart racing or fluttering or presyncope or syncope. She developed severe bilateral lower extremities edema. When she presented to the hospital she was hypoxic requiring high flow oxygen. Normally she is on 2 L of oxygen continuously. Definitely her oxygen requirement has increased within the last few days and she has been doing pulse oximetry at home and noticed that her oxygen saturation has been low. She underwent further evaluation including EKG showing RBBB. NT proBNP came to be elevated at 5000. First set of troponin is unremarkable with chest x-ray showed finding consistent with pulmonary vascular congestions and left pleural effusion but CT scan of the chest showed no evidence of PE. Venous duplex study showed no evidence of DVT as well. The physical examination is remarkable for regular rhythm with a systolic murmur at the right and left upper sternal border with diminished breathing sounds bilaterally and bilateral rhonchi and severe bilateral lower extremities pitting edema September 01, 2024 The patient was seen and evaluated this morning. She is overall feeling better. She still have bilateral lower extremities edema. The pressure remains marginal but appears to be better today which she was started on midodrine yesterday. Am going to stop the midodrine and decrease the dose of Lasix from 40 mg IV twice daily to 20 mg IV twice daily giving the marginally low blood pressure and also giving the finding on the echo including severe pulmonary hypertension and moderate pericardial effusion without tamponade physiology. The physical examination is remarkable for bilateral lower extremities edema. The troponin came to be mildly abnormal and I would consider medical treatment in the absence of any chest pain. September 02, 2024 The patient was seen and evaluated this morning. She is still hypoxic requiring high flow oxygen she still have severe bilateral lower extremities edema. Her pressure is better and with that I am going to increase the dose of Lasix to 40 mg IV twice daily which she is hypokalemic and the potassium is in process to be replaced. The physical examination is remarkable for diminished breathing sounds bilaterally and severe bilateral lower extremities edema. September 03, 2024 The patient was seen and evaluated this morning. The bilateral lower extremitie s edema has somewhat improved but continues to be there. She is on Lasix IV. I would suggest continue the current dose of Lasix IV and will follow-up with the blood work from the morning which is still pending. Otherwise she remains hemodynamically stable. No symptoms of chest pain or chest discomfort. The physical examination is remarkable for moderate bilateral lower extremities pitting edema with diminished breathing sounds bilaterally. Definitely the edema has improved after we increase the dose of Lasix yesterday. 09/04/2024 Patient is seen and examined at bedside this a.m. She is sitting in the chair with a high flow nasal cannula oxygen. 2+ pitting edema bilateral lower extrem ity, mild crackles in lung gupta, minimal wheezing. Alert oriented, reports that symptomatically she feels better since the time for admission. Blood pressure is borderline low with SBP around 90s to 100 mmHg. 09/05/2024 Patient is seen and examined at bedside this a.m. She continues to be on high flow nasal cannula 1-2+ pitting edema bilateral extremity with mild crackles in lung gupta with minimal wheezing Alert oriented Reports symptomatically feeling better. Blood pressure and heart rates are within acceptable ranges kidney function and electrolytes are within acceptable ranges. 09/06/2024 Patient examined this morning at the bedside. She remains on Airvo. She continues to report shortness of breath. She is currently on oral Bumex. She also is complaining of her left knee hurting. Repeat limited echo reveals severe right ventricular and right atrial enlargement, dilated IVC, moderate pericardial effusion mostly anterior. Venous Doppler completed negative for DVT. Patient underwent chest CTA which was negative for pulmonary embolism. Evidence of right heart strain, pulmonary hypertension with bilateral pleural effusions, pulmonary vascular congestion, and cardiomegaly. Moderate to severe emphysema. 09/07/2024 Patient examined this morning at the bedside. She is sitting up in the chair. She continues to report shortness of breath. She denies any chest pain or pressure. She underwent left-sided thoracentesis yesterday with removal of 800 cc. Postprocedure chest x-ray revealed trace pneumothorax. Blood pressure is low in the 90s. 09/08/2024 Patient examined this morning at the bedside. Patient currently denies chest pain or pressure. She reports mild shortness of breath. She remains on IV Lasix per pulmonary medicine. Sodium today 129. Potassium 3.3. BUN 34. Creatinine 0.75. PHYSICAL EXAM: VITAL SIGNS: Reviewed. GENERAL: Well-developed in no acute distress. NECK: Supple. No JVD or thyromegaly LUNGS: Respirations even and unlabored. Lungs with crackles bilaterally. HEART: Regular rate and rhythm. S1 and S2 heard. EXTREMITIES: Normal range of motion. No clubbing or cyanosis. Peripheral pulses intact. 2+ bilateral lower extremity edema ASSESSMENT: Shortness of breath Acute on chronic hypoxic respiratory failure Acute on chronic heart failure with preserved EF Acute Cor pulmonale Moderate pericardial effusion Severe pulmonary hypertension Left pleural effusion, status post thoracentesis with removal 800 cc, 09/06/2024 Trace pneumothorax, post thoracentesis PLAN: Discontinue Lasix drip. Begin IV Lasix 40 mg every 12 hours Daily weights, accurate intake and output, monitoring of kidney function Continue current cardiac medications including aspirin, Aldactone Zaroxolyn added yesterday per pulmonary medicine Further recommendations pending patient course Nurse practitioner note has been reviewed by physician. Signing provider agrees with the documented findings, assessment, and plan of care documented by AUT[employer]ATIC [employer]LLING MACHINE OPERATOR as a scribe. Objective - Vital Signs Vital signs: Vital Signs Temp 97.6 F 09/08/24 03:36 Pulse 72 09/08/24 08:05 Resp 18 09/08/24 03:36 BP 90/55 09/08/24 03:36 Pulse Ox 91 L 09/08/24 07:50 FiO2 65 09/08/24 07:50 Intake & Output 09/07/24 09/08/24 09/08/24 18:59 06:59 18:59 Intake Total 1568.333 Output Total 750 Balance 1568.333 -750 Weight 74 kg Intake: Intake, IV Titration 68.333 Amount Furosemide 100 mg In 68.333 Sodium Chloride 0.9% 90 ml @ 5 MG/HR 5 mls/hr IV .Q20H [facility] Rx#:[id number] Oral 1500 Output: Urine 750 Other: Voiding Method Indwelling Catheter Indwelling Catheter - Labs CBC & Chem 7: 09/08/24 06:11 09/08/24 06:11 Labs: Abnormal Lab Results - Last 24 Hours (Table) 09/08/24 09/08/24 Range/Units 06:11 06:11 Hct 50.2 H (34.0-46.0) % Neutrophils # 8.6 H (1.3-7.7) k/uL Lymphocytes # 0.3 L (1.0-4.8) k/uL Sodium 129 L (137-145) mmol/L Potassium 3.3 L (3.5-5.1) mmol/L Chloride 89 L (98-107) mmol/L Carbon Dioxide 34 H (22-30) mmol/L BUN 34 H (7-17) mg/dL Glucose 131 H (74-99) mg/dL Calcium 8.0 L (8.4-10.2) mg/dL Microbiology - Last 24 Hours (Table) 09/06/24 11:30 Gram Stain - Preliminary Pleural Fluid Body Fluid Culture - Preliminary
--- NOTE | 2024-09-08 15:45 | P.PN ---
Subjective Progress Note Date: 09/08/24 This is an 78-year-old female patient with no prior cardiac history but medical history significant for chronic hypoxic respiratory failure secondary to COPD and alpha 1 antitrypsin deficiency presented to the hospital with progressive exertional dyspnea associated with progressive bilateral lower extremity edema for the last few days. No symptoms of chest pain or chest discomfort but she felt she was experiencing severe congestions with no fever and no chills and no cough and no sputum production. No other cardiovascular symptoms of dizziness or lightheadedness or any feeling of heart racing or fluttering or presyncope or syncope. She developed severe bilateral lower extremities edema. When she presented to the hospital she was hypoxic requiring high flow oxygen. Normally she is on 2 L of oxygen continuously. Definitely her oxygen requirement has increased within the last few days and she has been doing pulse oximetry at home and noticed that her oxygen saturation has been low. She underwent further evaluation including EKG showing RBBB. NT proBNP came to be elevated at 5000. First set of troponin is unremarkable with chest x-ray showed finding consistent with pulmonary vascular congestions and left pleural effusion but CT scan of the chest showed no evidence of PE. Venous duplex study showed no evidence of DVT as well. The physical examination is remarkable for regular rhythm with a systolic murmur at the right and left upper sternal border with diminished breathing sounds bilaterally and bilateral rhonchi and severe bilateral lower extremities pitting edema. I initially saw this patient in my office. She was hypoxic and she was in significant volume overload with extensive lower extremity edema. I directed this patient to the Emergency Department. After being in the hospital for around 3 days, the patient remained hypoxic and the patient remains on Airvo at 45 L with an FiO2 of 65%. Based on that, a pulmonary consultation was requested. I reviewed the CT of the chest that was done on this patient. The patient has extensive emphysematous changes rubina aterally and the patient also has a moderate-sized left-sided pleural effusion. No airspace disease. No consolidation. No pneumonias. There is also a new moderate to small size pericardial effusion. Echocardiogram was completed on 08/31/2024 and the patient was found to have a preserved LV function with an EF of around 65% and the patient also had severe RV dilatation, reduced RV global systolic function and severe pulmonary hypertension along with moderate pericardial effusion without signs of any tamponade. The patient had severe tricuspid regurgitation. Estimated right ventricular systolic pressure was 94. For now, the patient is on Lasix 40 mg IV every 12 hours. Monitoring her fluid balance has been essentially negative and the patient has been -2.2 L over the past 24 hours. Most recent electrolytes show a sodium level of 132, potassium of 3.6, BUN 31 with a creatinine 0.7. The white cell count is at 8.8 with a hemoglobin 17.3. She is currently on Lasix 40 mg IV every 12 hours. She is also on Aldactone 25 mg p.o. daily. She remains on IV heparin. The procalcitonin level was 0.08. Troponins were nonelevated. On 09/05/2024, the patient is being seen for a follow-up. The patient is calm and comfortable. The patient is currently on Airvo 45 L with an FiO2 of 65%. She remains on Bumex 1 mg p.o. twice daily and Aldactone 25 mg p.o. daily. She has been diuresing well over the past several days and the patient has been negative fluid balance of 1.1 L over the past 24 hours. No significant shortness of breath at rest. Continues to have significant amount of edema lower extremities bilaterally. The white cell count is at 8.4 with a hemoglobin 17.4 and a jurgen telet count of 167. BUN is 30 with a creatinine of of 0.7. Sodium level is at 132 and a potassium level is at 3.5. Viral screen was negative. Chest x-ray from yesterday was consistent with COPD with chronic emphysematous changes and cardiomegaly and small left-sided pleural effusion. The patient also was noted to have a moderate-sized pericardial effusion without signs of tamponade. The patient was taken off the IV Lasix and the patient was started on Bumex in combination with Aldactone. 09/06/2024, the patient remains on Airvo 45 L with FiO2 of 50%. The fluid balance has been +125 cc over the past 24 hours. Based on that, making recommendations to start the patient on Lasix drip at 5 mg an hour. She continues to have significant amount of edema lower extremities bilaterally. Further workup was ordered by the medical group including a Doppler of lower extremity that showed no evidence of any DVT and CTA of the chest that showed no evidence of any pulmonary embolism. There was extensive bilateral severe emphysematous changes and a chronic left-sided pleural effusion. Based on that, I performed a bedside thoracentesis this patient and I drained approximately 800 cc of pleural fluid from the left lung. The patient tolerated the procedure well without any complications. The fluid will be sent for analysis. The white cell count is 8.4, hemoglobin is 17.4 and platelet count of 167. BUN is 30 with a creatinine of 0.7 and sodium is at 132 and a potassium level is at 3.5. 09/07/2024, the patient is being seen for a follow-up. The patient remains on Airvo at 45 L and FiO2 of 65%. Pulse ox is in the order of 92%. Remains dependent on high flow oxygen. She continues to diurese with Lasix drip at 5 mg an hour. She is postthoracentesis and a total of 800 cc of pleural fluid was aspirated from the left lung. The pleural fluid was a transudate. The chemistry that showed low LDH and low protein. The white cell count was also low with a lymphocytic predominance. The patient has no specific complaints. The white cell count is at 5.6, hemoglobin is 16.6 and a platelet count is at 153. Sodium is at 130, BUN 29 with a creatinine of 0.7. K level is at 3.4. R tasia on DuoNeb updrafts. Will start IV Solu-Medrol. 09/08/2024, the patient is being seen for a follow-up. Remains on Airvo 40 L and FiO2 of 65%. Currently on Lasix drip at 5 mg an hour. Also on Zaroxolyn 5 mg p.o. twice a day.. She is also on a combination of bronchodilators and IV Solu-Medrol. Unfortunately, no significant improvement in oxygenation over the past 24 hours and will continue to monitor. The white cell count of 9.5, hemoglobin is at 15.6 and a platelet count of 156. Sodium levels at 129, potassium level 3.3. BUN is 34 with a creatinine of 0.7. Procalcitonin level is at 0.08. Cortisol level is at 32. Pleural fluid aspirated from the left lung was consistent with a transudate. Objective - Vital Signs Vital signs: Vital Signs Temp 97.6 F 09/08/24 09:00 Pulse 71 09/08/24 09:00 Resp 19 09/08/24 09:00 BP 93/59 09/08/24 09:00 Pulse Ox 89 L 09/08/24 09:00 FiO2 65 09/08/24 09:00 Intake & Output 09/07/24 09/08/24 09/08/24 18:59 06:59 18:59 Intake Total 1568.333 0 Output Total 750 Balance 1568.333 -750 0 Weight 74 kg Intake: Intake, IV Titration 68.333 Amount Furosemide 100 mg In 68.333 Sodium Chloride 0.9% 90 ml @ 5 MG/HR 5 mls/hr IV .Q20H [facility] Rx#:[id number] Oral 1500 0 Output: Urine 750 Other: Voiding Method Indwelling Catheter Indwelling Catheter Indwelling Catheter - Exam the patient appeared well nourished and normally developed. Vital signs as documented. The patient is currently on Airvo with flow of 40 L with FiO2 of 65 % Head exam is unremarkable. No scleral icterus or corneal arcus noted. Neck is with jugular venous distension, thyromegaly, or carotid bruits. Carotid upstrokes are brisk bilaterally. Lungs a marked diminished breath sounds bilateral especially in the left lung base Cardiac exam reveals the PMI to be normally sized and situated. Rhythm is regular. First and second heart sounds normal. No murmurs, rubs or gallops. There is accentuation of second heart sound Abdominal exam reveals normal bowel sounds, no masses, no organomegaly and no aortic enlargement. Extremities are edematous and both femoral and pedal pulses are normal. Examination of the skin revealed no evidence of significant rashes, suspicious appearing nevi or other concerning lesions. Neurologically, the patient is awake and alert and the patient does not have any focal neurological deficit. Cranial nerves are essentially intact. - Labs CBC & Chem 7: 09/08/24 06:11 09/08/24 06:11 Labs: Abnormal Lab Results - Last 24 Hours (Table) 09/08/24 09/08/24 Range/Units 06:11 06:11 Hct 50.2 H (34.0-46.0) % Neutrophils # 8.6 H (1.3-7.7) k/uL Lymphocytes # 0.3 L (1.0-4.8) k/uL Sodium 129 L (137-145) mmol/L Potassium 3.3 L (3.5-5.1) mmol/L Chloride 89 L (98-107) mmol/L Carbon Dioxide 34 H (22-30) mmol/L BUN 34 H (7-17) mg/dL Glucose 131 H (74-99) mg/dL Calcium 8.0 L (8.4-10.2) mg/dL Microbiology - Last 24 Hours (Table) 09/06/24 11:30 Gram Stain - Preliminary Pleural Fluid Body Fluid Culture - Preliminary Assessment and Plan Plan: acute on chronic hypoxic respiratory failure. The patient is currently on rvo at 45 L with an FiO2 of 65 %. She is typically on home O2 at 3 L/min nasal cannula. Reviewed the CT of the chest. No evidence of any pulm embolism. There are some atelectatic changes and small left-sided pleural effusion. The patient also has a moderate-sized pericardial effusion without signs of tamponade. Patient is postthoracentesis of the left lung that was done on 09/06/2024. Pleural fluid is a transudate. Currently on Lasix drip at 5 mg an hour. Chronic right-sided heart failure with severe pulmonary hypertension and severe tricuspid regurgitation Chronic lower extremity edema with obvious signs of fluid overload Moderate-sized pericardial effusion, without signs of tamponade Severe pulmonary hypertension, WHO group 3 Advanced and chronic COPD with history of alpha 1 antitrypsin deficiency. The patient has MZ disease. She has been maintained on a combination of budesonide and Perforomist and Yupelri an outpatient basis in addition to albuterol nebulized treatments on as-needed basis Chronic anxiety Panic attacks Gout Urinary retention, seen by urology. Alba catheter has been inserted. Plan Titrate Airvo to maintain saturation above 90%. Currently on 40L with an FiO2 of 65% FiO2 Thoracentesis of the left lung was done and a total of 800 cc of pleural fluid was aspirated. The fluid is a transudate Continue Lasix drip at 5 mg an hour. Attempt to maintain a negative fluid balance Continue Zaroxolyn 5 mg p.o. twice a day Continue IV Solu-Medrol 40 mg every 8 hours Continue bronchodilators Titrate oxygen flow to maintain saturation above 90% Reviewed the CAT scan of the chest. Reviewed the Doppler of the lower extremities. Will discuss the pericardial effusion with cardiology Prognosis extremely poor based on above-mentioned comorbidities. Poor baseline performance and functional status. Unfortunately, not a whole lot can be offered from a pulmonary standpoint. This is a group 3 pulmonary hypertension. Will continue to follow DNR/DNI CODE STATUS Time with Patient: Greater than 30
[2024-09-08] MEDS: POTASSIUM CHLORIDE ER 10 MEQ TAB.ER.PRT PO SCH (16:13)
[2024-09-08 19:57] LABS: Glucose,Whole Blood 125 mg/dL (70-110)
[2024-09-08 23:09] LABS: African American GFR (CKD) 80 (>60 ml/min/1.73 sqM); Anion Gap 7 mmol/L; Blood Urea Nitrogen 37 mg/dL (7-17); Calcium 8.5 mg/dL (8.4-10.2); Carbon Dioxide 35 mmol/L (22-30); Chloride 86 mmol/L (98-107); Glucose 180 mg/dL (74-99); Magnesium 1.6 mg/dL (1.6-2.3); Non-African American GFR(CKD) 69 (>60 ml/min/1.73 sqM); Potassium 3.3 mmol/L (3.5-5.1); Sodium 128 mmol/L (137-145)
[2024-09-08] MEDS ORDERED: Magnesium Replacement Protocol 1 EACH MISC MISCELLANE PRN (23:41)
[2024-09-09] MEDS: MAGNESIUM SULFATE-D5W PMX 1 GM in DEXTROSE/WATER 1 100ML.BAG IVPB SCH (00:12)
[2024-09-09] MEDS: POTASSIUM CHLORIDE ER 20 MEQ TAB.ER PO SCH (00:12)
--- NOTE | 2024-09-09 00:40 | PN ---
PROGRESS NOTE DATE OF SERVICE: 09/08/2024 SUBJECTIVE: This 78-year-old woman, who was admitted with COPD as well as CHF acute exacerbation, continues to be extremely hypoxic. The patient is still on Airvo. The patient had thoracocenteses as mentioned earlier and the cytology only showed reactive mesothelial cells. PAST MEDICAL HISTORY: Reviewed. REVIEW OF SYSTEMS: Fourteen-point review of systems negative except as mentioned earlier. CURRENT MEDICATIONS: Reviewed. PHYSICAL EXAMINATION: VITAL SIGNS: Pulse is 80, blood pressure 100/64, and respirations 20. HEENT: Conjunctivae normal. NECK: No JVD. CARDIOVASCULAR: S1, S2. RESPIRATION: Breath sounds diminished at the bases. Bilateral scattered rhonchi. ABDOMEN: Soft and nontender. LABORATORY DATA: Reviewed. ASSESSMENT: 1. Shortness of breath, possible multifactorial with congestive heart failure acute exacerbation, also chronic obstructive pulmonary disease acute exacerbation, asthma exacerbation with hypoxic respiratory failure, on Airvo. 2. Left pleural effusion, status post thoracocentesis, possibly inflammatory. 3. Acute on chronic cor pulmonale. 4. Moderate pericardial effusion, mostly anterior. 5. Left lower lobe pneumonia, possibly gram-negative. 6. Hyponatremia. 7. Hypokalemia. Elevated D-dimer with no evidence of pulmonary embolus. 8. Hypertension. RECOMMENDATIONS: Recommend to continue current management and continue symptomatic treatment. Otherwise, supplement potassium. Closely follow. Continue with diuretics. Guarded prognosis. Further recommendations to follow. MMODL / IJN: [id number] /
[2024-09-09 05:49] LABS: Glucose,Whole Blood 159 mg/dL (70-110)
[2024-09-09 06:31] LABS: Basophils % (A) 0 %; Eosinophils % (A) 0 %; HCT 49.2 % (34.0-46.0); HGB 15.4 gm/dL (11.4-16.0); Hypochromasia Slight; Lymphocytes # (A) 0.3 k/uL (1.0-4.8); Lymphocytes % (A) 3 %; MCHC 31.3 g/dL (31.0-37.0); Mean Platelet Volume 9.2; Monocytes # (A) 0.5 k/uL (0-1.0); Monocytes % (A) 4 %; Neutrophils # (A) 9.4 k/uL (1.3-7.7); Neutrophils % (A) 91 %; Platelet Count 176 k/uL (150-450); RBC 5.13 m/uL (3.80-5.40); RDW 15.2 % (11.5-15.5); WBC 10.3 k/uL (3.8-10.6)
[2024-09-09 06:37] LABS: African American GFR (CKD) 89 (>60 ml/min/1.73 sqM); Anion Gap 5 mmol/L; Blood Urea Nitrogen 36 mg/dL (7-17); Calcium 8.5 mg/dL (8.4-10.2); Carbon Dioxide 37 mmol/L (22-30); Chloride 86 mmol/L (98-107); Glucose 124 mg/dL (74-99); Magnesium 2.1 mg/dL (1.6-2.3); Non-African American GFR(CKD) 77 (>60 ml/min/1.73 sqM); Potassium 3.5 mmol/L (3.5-5.1); Sodium 128 mmol/L (137-145)
[2024-09-09 11:21] LABS: Glucose,Whole Blood 132 mg/dL (70-110)
--- NOTE | 2024-09-09 13:29 | P.PN ---
Subjective Progress Note Date: 09/09/24 This is an 78-year-old female patient with no prior cardiac history but medical history significant for chronic hypoxic respiratory failure secondary to COPD and alpha 1 antitrypsin deficiency presented to the hospital with progressive exertional dyspnea associated with progressive bilateral lower extremity edema for the last few days. No symptoms of chest pain or chest discomfort but she felt she was experiencing severe congestions with no fever and no chills and no cough and no sputum production. No other cardiovascular symptoms of dizziness or lightheadedness or any feeling of heart racing or fluttering or presyncope or syncope. She developed severe bilateral lower extremities edema. When she presented to the hospital she was hypoxic requiring high flow oxygen. Normally she is on 2 L of oxygen continuously. Definitely her oxygen requirement has increased within the last few days and she has been doing pulse oximetry at home and noticed that her oxygen saturation has been low. She underwent further evaluation including EKG showing RBBB. NT proBNP came to be elevated at 5000. First set of troponin is unremarkable with chest x-ray showed finding consistent with pulmonary vascular congestions and left pleural effusion but CT scan of the chest showed no evidence of PE. Venous duplex study showed no evidence of DVT as well. The physical examination is remarkable for regular rhythm with a systolic murmur at the right and left upper sternal border with diminished breathing sounds bilaterally and bilateral rhonchi and severe bilateral lower extremities pitting edema. I initially saw this patient in my office. She was hypoxic and she was in significant volume overload with extensive lower extremity edema. I directed this patient to the Emergency Department. After being in the hospital for around 3 days, the patient remained hypoxic and the patient remains on Airvo at 45 L with an FiO2 of 65%. Based on that, a pulmonary consultation was requested. I reviewed the CT of the chest that was done on this patient. The patient has extensive emphysematous changes rubina aterally and the patient also has a moderate-sized left-sided pleural effusion. No airspace disease. No consolidation. No pneumonias. There is also a new moderate to small size pericardial effusion. Echocardiogram was completed on 08/31/2024 and the patient was found to have a preserved LV function with an EF of around 65% and the patient also had severe RV dilatation, reduced RV global systolic function and severe pulmonary hypertension along with moderate pericardial effusion without signs of any tamponade. The patient had severe tricuspid regurgitation. Estimated right ventricular systolic pressure was 94. For now, the patient is on Lasix 40 mg IV every 12 hours. Monitoring her fluid balance has been essentially negative and the patient has been -2.2 L over the past 24 hours. Most recent electrolytes show a sodium level of 132, potassium of 3.6, BUN 31 with a creatinine 0.7. The white cell count is at 8.8 with a hemoglobin 17.3. She is currently on Lasix 40 mg IV every 12 hours. She is also on Aldactone 25 mg p.o. daily. She remains on IV heparin. The procalcitonin level was 0.08. Troponins were nonelevated. On 09/05/2024, the patient is being seen for a follow-up. The patient is calm and comfortable. The patient is currently on Airvo 45 L with an FiO2 of 65%. She remains on Bumex 1 mg p.o. twice daily and Aldactone 25 mg p.o. daily. She has been diuresing well over the past several days and the patient has been negative fluid balance of 1.1 L over the past 24 hours. No significant shortness of breath at rest. Continues to have significant amount of edema lower extremities bilaterally. The white cell count is at 8.4 with a hemoglobin 17.4 and a jurgen telet count of 167. BUN is 30 with a creatinine of of 0.7. Sodium level is at 132 and a potassium level is at 3.5. Viral screen was negative. Chest x-ray from yesterday was consistent with COPD with chronic emphysematous changes and cardiomegaly and small left-sided pleural effusion. The patient also was noted to have a moderate-sized pericardial effusion without signs of tamponade. The patient was taken off the IV Lasix and the patient was started on Bumex in combination with Aldactone. 09/06/2024, the patient remains on Airvo 45 L with FiO2 of 50%. The fluid balance has been +125 cc over the past 24 hours. Based on that, making recommendations to start the patient on Lasix drip at 5 mg an hour. She continues to have significant amount of edema lower extremities bilaterally. Further workup was ordered by the medical group including a Doppler of lower extremity that showed no evidence of any DVT and CTA of the chest that showed no evidence of any pulmonary embolism. There was extensive bilateral severe emphysematous changes and a chronic left-sided pleural effusion. Based on that, I performed a bedside thoracentesis this patient and I drained approximately 800 cc of pleural fluid from the left lung. The patient tolerated the procedure well without any complications. The fluid will be sent for analysis. The white cell count is 8.4, hemoglobin is 17.4 and platelet count of 167. BUN is 30 with a creatinine of 0.7 and sodium is at 132 and a potassium level is at 3.5. 09/07/2024, the patient is being seen for a follow-up. The patient remains on Airvo at 45 L and FiO2 of 65%. Pulse ox is in the order of 92%. Remains dependent on high flow oxygen. She continues to diurese with Lasix drip at 5 mg an hour. She is postthoracentesis and a total of 800 cc of pleural fluid was aspirated from the left lung. The pleural fluid was a transudate. The chemistry that showed low LDH and low protein. The white cell count was also low with a lymphocytic predominance. The patient has no specific complaints. The white cell count is at 5.6, hemoglobin is 16.6 and a platelet count is at 153. Sodium is at 130, BUN 29 with a creatinine of 0.7. K level is at 3.4. Roz dozier on [facility]. Will start IV Solu-Medrol. 09/08/2024, the patient is being seen for a follow-up. Remains on Airvo 40 L and FiO2 of 65%. Currently on Lasix drip at 5 mg an hour. Also on Zaroxolyn 5 mg p.o. twice a day.. She is also on a combination of bronchodilators and IV Solu-Medrol. Unfortunately, no significant improvement in oxygenation over the past 24 hours and will continue to monitor. The white cell count of 9.5, hemoglobin is at 15.6 and a platelet count of 156. Sodium levels at 129, potassium level 3.3. BUN is 34 with a creatinine of 0.7. Procalcitonin level is at 0.08. Cortisol level is at 32. Pleural fluid aspirated from the left lung was consistent with a transudate. On 09/09/2024, the patient was taken off the Airvo and the patient was placed on 12 L of oxygen by nasal cannula. Current pulse ox is around 88%. She is calm and comfortable. Denies having any new complaints. I am not sure if the patient is having accurate input output measurement. Nevertheless, based on the fluid balance, she is +500 cc over the past 24 hours. She is off the Lasix drip and the patient is currently receiving Lasix 40 mg IV every 12 hours. She is also on Zaroxolyn 5 mg p.o. twice a day. He is also on Aldactone 25 mg p.o. daily. Doing well. Afebrile. Hemodynamically stable. Blood work from today shows a white cell count of 10.3, hemoglobin of 15 and a platelet count of 176. BUN 36 with a creatinine of 0.7. Sodium level is at 128. No other significant events otherwise for now. Objective - Vital Signs Vital signs: Vital Signs Temp 97.8 F 09/09/24 08:00 Pulse 74 09/09/24 08:41 Resp 16 09/09/24 08:00 BP 107/70 09/09/24 08:00 Pulse Ox 91 L 09/09/24 08:20 FiO2 70 09/09/24 08:20 Intake & Output 09/08/24 09/09/24 09/09/24 18:59 06:59 18:59 Intake Total 444 690 Output Total 200 375 425 Balance 244 315 -425 Weight 74.1 kg Intake: IV 10 0.9 10 Intake, IV Titration 200 Amount Magnesium Sulfate-D5w Pmx 200 1 gm In Dextrose/Water 1 100ml.bag @ 100 mls/hr IVPB Q1H [facility] Rx#: [id number] Oral 444 480 Output: Urine 200 375 425 Other: Voiding Method Indwelling Catheter Indwelling Catheter - Exam the patient appeared well nourished and normally developed. Vital signs as documented. The patient is currently on 12 L of oxygen nasal cannula Head exam is unremarkable. No scleral icterus or corneal arcus noted. Neck is with jugular venous distension, thyromegaly, or carotid bruits. Carotid upstrokes are brisk bilaterally. Lungs a marked diminished breath sounds bilateral especially in the left lung base Cardiac exam reveals the PMI to be normally sized and situated. Rhythm is regular. First and second heart sounds normal. No murmurs, rubs or gallops. There is accentuation of second heart sound Abdominal exam reveals normal bowel sounds, no masses, no organomegaly and no aortic enlargement. Extremities are edematous and both femoral and pedal pulses are normal. Examination of the skin revealed no evidence of significant rashes, suspicious appearing nevi or other concerning lesions. Neurologically, the patient is awake and alert and the patient does not have any focal neurological deficit. Cranial nerves are essentially intact. - Labs CBC & Chem 7: 09/09/24 05:24 09/09/24 05:24 Labs: Abnormal Lab Results - Last 24 Hours (Table) 09/08/24 09/08/24 09/09/24 Range/Units 19:56 22:43 05:24 Hct (34.0-46.0) % Neutrophils # (1.3-7.7) k/uL Lymphocytes # (1.0-4.8) k/uL Sodium 128 L 128 L (137-145) mmol/L Potassium 3.3 L (3.5-5.1) mmol/L Chloride 86 L 86 L (98-107) mmol/L Carbon Dioxide 35 H 37 H (22-30) mmol/L BUN 37 H 36 H (7-17) mg/dL Glucose 180 H 124 H (74-99) mg/dL POC Glucose (mg/dL) 125 H (70-110) mg/dL 09/09/24 09/09/24 Range/Units 05:24 05:47 Hct 49.2 H (34.0-46.0) % Neutrophils # 9.4 H (1.3-7.7) k/uL Lymphocytes # 0.3 L (1.0-4.8) k/uL Sodium (137-145) mmol/L Potassium (3.5-5.1) mmol/L Chloride (98-107) mmol/L Carbon Dioxide (22-30) mmol/L BUN (7-17) mg/dL Glucose (74-99) mg/dL POC Glucose (mg/dL) 159 H (70-110) mg/dL Microbiology - Last 24 Hours (Table) 09/06/24 11:30 Gram Stain - Preliminary Pleural Fluid Body Fluid Culture - Preliminary 09/06/24 11:30 Anaerobic Culture - Preliminary Pleural Fluid Assessment and Plan Plan: acute on chronic hypoxic respiratory failure. The patient is currently on AIRVO she is typically on home O2 at 3 L/min nasal cannula. Reviewed the CT of the chest. No evidence of any pulm embolism. There are some atelectatic changes and small left-sided pleural effusion. The patient also has a moderate- sized pericardial effusion without signs of tamponade. Patient is postthoracentesis of the left lung that was done on 09/06/2024. Pleural fluid is a transudate. Currently on Lasix 40 mg IV every 12 hours, Zaroxolyn 5 mg p.o. twice daily and Aldactone. Patient has been weaned off Airvo and the patient was switched to high flow nasal cannula 12 L/min. Chronic right-sided heart failure with severe pulmonary hypertension and severe tricuspid regurgitation Chronic lower extremity edema with obvious signs of fluid overload, improvement in lower extremity edema Moderate-sized pericardial effusion, without signs of tamponade Severe pulmonary hypertension, WHO group 3 Advanced and chronic COPD with history of alpha 1 antitrypsin deficiency. The patient has MZ disease. She has been maintained on a combination of budesonide and Perforomist and Yupelri an outpatient basis in addition to albuterol nebulized treatments on as-needed basis Chronic anxiety Panic attacks Gout Urinary retention, seen by urology. Alba catheter has been inserted. Plan Titrate oxygen flow, currently on 12 L with a pulse ox of 88%. She is known to have chronic hypoxemia. Thoracentesis of the left lung was done and a total of 800 cc of pleural fluid was aspirated. The fluid is a transudate Continue Lasix 40 mg IV every 12 hours. Attempt to maintain a negative fluid balance Continue Zaroxolyn 5 mg p.o. twice a day Aldactone Continue IV Solu-Medrol 40 mg every 8 hours Continue bronchodilators Titrate oxygen flow to maintain saturation above 90% Reviewed the CAT scan of the chest. Reviewed the Doppler of the lower extremities. Will discuss the pericardial effusion with cardiology Prognosis extremely poor based on above-mentioned comorbidities. Poor baseline performance and functional status. Unfortunately, not a whole lot can be offered from a pulmonary standpoint. This is a group 3 pulmonary hypertension. Will continue to follow DNR/DNI CODE STATUS Time with Patient: Greater than 30
[2024-09-09 16:09] LABS: Glucose,Whole Blood 162 mg/dL (70-110)
[2024-09-09 19:56] LABS: Glucose,Whole Blood 189 mg/dL (70-110)
[2024-09-09] MEDS: INSULIN LISPRO (HumaLOG) 100 UNIT/ML 10 mL VL SQ SCH (20:29)
--- NOTE | 2024-09-09 22:54 | P.PN ---
Subjective Progress Note Date: 09/09/24 This is an 78-year-old female patient with no prior cardiac history but medical history significant for chronic hypoxic respiratory failure secondary to COPD and alpha 1 antitrypsin deficiency presented to the hospital with progressive exertional dyspnea associated with progressive bilateral lower extremity edema for the last few days. No symptoms of chest pain or chest discomfort but she felt she was experiencing severe congestions with no fever and no chills and no cough and no sputum production. No other cardiovascular symptoms of dizziness or lightheadedness or any feeling of heart racing or fluttering or presyncope or syncope. She developed severe bilateral lower extremities edema. When she presented to the hospital she was hypoxic requiring high flow oxygen. Normally she is on 2 L of oxygen continuously. Definitely her oxygen requirement has increased within the last few days and she has been doing pulse oximetry at home and noticed that her oxygen saturation has been low. She underwent further evaluation including EKG showing RBBB. NT proBNP came to be elevated at 5000. First set of troponin is unremarkable with chest x-ray showed finding consistent with pulmonary vascular congestions and left pleural effusion but CT scan of the chest showed no evidence of PE. Venous duplex study showed no evidence of DVT as well. The physical examination is remarkable for regular rhythm with a systolic murmur at the right and left upper sternal border with diminished breathing sounds bilaterally and bilateral rhonchi and severe bilateral lower extremities pitting edema September 01, 2024 The patient was seen and evaluated this morning. She is overall feeling better. She still have bilateral lower extremities edema. The pressure remains marginal but appears to be better today which she was started on midodrine yesterday. Am going to stop the midodrine and decrease the dose of Lasix from 40 mg IV twice daily to 20 mg IV twice daily giving the marginally low blood pressure and also giving the finding on the echo including severe pulmonary hypertension and moderate pericardial effusion without tamponade physiology. The physical examination is remarkable for bilateral lower extremities edema. The troponin came to be mildly abnormal and I would consider medical treatment in the absence of any chest pain. September 02, 2024 The patient was seen and evaluated this morning. She is still hypoxic requiring high flow oxygen she still have severe bilateral lower extremities edema. Her pressure is better and with that I am going to increase the dose of Lasix to 40 mg IV twice daily which she is hypokalemic and the potassium is in process to be replaced. The physical examination is remarkable for diminished breathing sounds bilaterally and severe bilateral lower extremities edema. September 03, 2024 The patient was seen and evaluated this morning. The bilateral lower extremities edema has somewhat improved but continues to be there. She is on Lasix IV. I would suggest continue the current dose of Lasix IV and will follow-up with the blood work from the morning which is still pending. Otherwise she remains hemodynamically stable. No symptoms of chest pain or chest discomfort. The physical examination is remarkable for moderate bilateral lower extremities pitting edema with diminished breathing sounds bilaterally. Definitely the edema has improved after we increase the dose of Lasix yesterday. 09/04/2024 Patient is seen and examined at bedside this a.m. She is sitting in the chair with a high flow nasal cannula oxygen. 2+ pitting edema bilateral lower extremity, mild crackles in lung gupta, minimal wheezing. Alert oriented, reports that symptomatically she feels better since the time for admission. Blood pressure is borderline low with SBP around 90s to 100 mmHg. 09/05/2024 Patient is seen and examined at bedside this a.m. She continues to be on high flow nasal cannula 1-2+ pitting edema bilateral extremity with mild crackles in lung gupta with minimal wheezing Alert oriented Reports symptomatically feeling better. Blood pressure and heart rates are within acceptable ranges kidney function and electrolytes are within acceptable ranges. 09/06/2024 Patient examined this morning at the bedside. She remains on Airvo. She continues to report shortness of breath. She is currently on oral Bumex. She also is complaining of her left knee hurting. Repeat limited echo reveals severe right ventricular and right atrial enlargement, dilated IVC, moderate pericardial effusion mostly anterior. Venous Doppler completed negative for DVT. Patient underwent chest CTA which was negative for pulmonary embolism. Evidence of right heart strain, pulmonary hypertension with bilateral pleural effusions, pulmonary vascular congestion, and cardiomegaly. Moderate to severe emphysema. 09/07/2024 Patient examined this morning at the bedside. She is sitting up in the chair. She continues to report shortness of breath. She denies any chest pain or pressure. She underwent left-sided thoracentesis yesterday with removal of 800 cc. Postprocedure chest x-ray revealed trace pneumothorax. Blood pressure is low in the 90s. 09/08/2024 Patient examined this morning at the bedside. Patient currently denies chest pain or pressure. She reports mild shortness of breath. She remains on IV Lasix per pulmonary medicine. Sodium today 129. Potassium 3.3. BUN 34. Creatinine 0.75. 09/09/2024 Changed from high flow nasal cannula to 12 L nasal cannula supplemental oxygen Blood pressure is borderline low Kidney function is stable with borderline low sodium and potassium Appropriate urine output Negative fluid balance of 1100 cc today last 24 hours PHYSICAL EXAM: VITAL SIGNS: Reviewed. GENERAL: Well-developed in no acute distress. NECK: Supple. No JVD or thyromegaly LUNGS: Respirations even and unlabored. Lungs with crackles bilaterally. HEART: Regular rate and rhythm. S1 and S2 heard. EXTREMITIES: Normal range of motion. No clubbing or cyanosis. Peripheral pulses intact. 2+ bilateral lower extremity edema ASSESSMENT: Shortness of breath Acute on chronic hypoxic respiratory failure Acute on chronic heart failure with preserved EF Acute Cor pulmonale Moderate pericardial effusion Severe pulmonary hypertension Left pleural effusion, status post thoracentesis with removal 800 cc, 09/06/2024 Trace pneumothorax, post thoracentesis PLAN: Continue IV Lasix 40 mg every 12 hours Metolazone 5 mg twice daily Aspirin 81 mg, Aldactone 25 mg daily Daily weights, accurate intake and output, monitoring of kidney function Continue current cardiac medications including aspirin, Aldactone Overall manager terminal prognosis is guarded Objective - Vital Signs Vital signs: Vital Signs Temp 97.4 F L 09/09/24 20:00 Pulse 89 09/09/24 21:22 Resp 20 09/09/24 20:00 BP 100/64 09/09/24 20:00 Pulse Ox 88 L 09/09/24 20:00 FiO2 70 09/09/24 08:20 Intake & Output 09/09/24 09/09/24 09/10/24 06:59 18:59 06:59 Intake Total 690 340 10 Output Total 375 1275 175 Balance 315 -635 -165 Weight 74.1 kg Intake: IV 10 10 0.9 10 10 Intake, IV Titration 200 Amount Magnesium Sulfate-D5w Pmx 200 1 gm In Dextrose/Water 1 100ml.bag @ 100 mls/hr IVPB Q1H [facility] Rx#: [id number] Oral 480 340 Output: Urine 375 1275 175 Other: Voiding Method Indwelling Catheter Indwelling Catheter Indwelling Catheter # Bowel Movements 1 - Labs CBC & Chem 7: 09/09/24 05:24 09/09/24 05:24 Labs: Abnormal Lab Results - Last 24 Hours (Table) 09/08/24 09/09/24 09/09/24 Range/Units 22:43 05:24 05:24 Hct 49.2 H (34.0-46.0) % Neutrophils # 9.4 H (1.3-7.7) k/uL Lymphocytes # 0.3 L (1.0-4.8) k/uL Sodium 128 L 128 L (137-145) mmol/L Potassium 3.3 L (3.5-5.1) mmol/L Chloride 86 L 86 L (98-107) mmol/L Carbon Dioxide 35 H 37 H (22-30) mmol/L BUN 37 H 36 H (7-17) mg/dL Glucose 180 H 124 H (74-99) mg/dL POC Glucose (mg/dL) (70-110) mg/dL 09/09/24 09/09/24 09/09/24 Range/Units 05:47 11:19 16:07 Hct (34.0-46.0) % Neutrophils # (1.3-7.7) k/uL Lymphocytes # (1.0-4.8) k/uL Sodium (137-145) mmol/L Potassium (3.5-5.1) mmol/L Chloride (98-107) mmol/L Carbon Dioxide (22-30) mmol/L BUN (7-17) mg/dL Glucose (74-99) mg/dL POC Glucose (mg/dL) 159 H 132 H 162 H (70-110) mg/dL 09/09/24 Range/Units 19:55 Hct (34.0-46.0) % Neutrophils # (1.3-7.7) k/uL Lymphocytes # (1.0-4.8) k/uL Sodium (137-145) mmol/L Potassium (3.5-5.1) mmol/L Chloride (98-107) mmol/L Carbon Dioxide (22-30) mmol/L BUN (7-17) mg/dL Glucose (74-99) mg/dL POC Glucose (mg/dL) 189 H (70-110) mg/dL Microbiology - Last 24 Hours (Table) 09/06/24 11:30 Gram Stain - Preliminary Pleural Fluid Body Fluid Culture - Preliminary
--- NOTE | 2024-09-10 00:04 | PN ---
PROGRESS NOTE DATE OF SERVICE: 09/09/2024 SUBJECTIVE: This is an 78-year-old woman, who was admitted with COPD and CHF exacerbation. She is off AIRVO at this time. No chest pain, no palpitation. PHYSICAL EXAMINATION: VITAL SIGNS: Pulse 89, blood pressure n, respirations 20. CHEST: Few scattered rhonchi and crackles. ABDOMEN: Soft. NERVOUS SYSTEM: Nonfocal. LABORATORY DATA: Reviewed. ASSESSMENT: 1. Shortness of breath secondary to congestive heart failure with acute exacerbation and chronic obstructive pulmonary disease with acute exacerbation and asthma with acute exacerbation with acute hypoxic respiratory failure, status post AIRVO. 2. Left pleural effusion, status post thoracocentesis possibly inflammatory. 3. Acute on chronic cor pulmonale. 4. Moderate pericardial effusion, mostly anterior. 5. Left lower lobe pneumonia possibly gram-negative. 6. Multiple complex medical issues. RECOMMENDATIONS: Recommended to continue with current medications, continue with symptomatic treatment. Otherwise, IV Lasix. Continue to monitor. Increase ambulation. Possible ECF rehab with home care. Prognosis is guarded. Further recommendations to follow. MMODL / IJN: [id number] / MTDD
[2024-09-10 05:53] LABS: Glucose,Whole Blood 144 mg/dL (70-110)
[2024-09-10 07:15] LABS: Basophils % (A) 0 %; Eosinophils % (A) 1 %; HGB 15.4 gm/dL (11.4-16.0); Lymphocytes # (A) 0.3 k/uL (1.0-4.8); Lymphocytes % (A) 3 %; MCH 30.4 pg (25.0-35.0); MCHC 31.4 g/dL (31.0-37.0); MCV 96.8 fL (80.0-100.0); Monocytes # (A) 0.4 k/uL (0-1.0); Monocytes % (A) 5 %; Neutrophils # (A) 7.9 k/uL (1.3-7.7); Neutrophils % (A) 90 %; Platelet Count 161 k/uL (150-450); RBC 5.06 m/uL (3.80-5.40); RDW 15.6 % (11.5-15.5); WBC 8.7 k/uL (3.8-10.6)
[2024-09-10 07:34] LABS: African American GFR (CKD) >90 (>60 ml/min/1.73 sqM); Anion Gap 5 mmol/L; Blood Urea Nitrogen 40 mg/dL (7-17); Calcium 8.4 mg/dL (8.4-10.2); Carbon Dioxide 36 mmol/L (22-30); Chloride 86 mmol/L (98-107); Glucose 128 mg/dL (74-99); Non-African American GFR(CKD) 83 (>60 ml/min/1.73 sqM); Potassium 3.4 mmol/L (3.5-5.1); Sodium 127 mmol/L (137-145)
[2024-09-10] MEDS ORDERED: Potassium Replacement Protocol 1 EACH MISC MISCELLANE PRN (08:01)
[2024-09-10] MEDS: POTASSIUM CHLORIDE ER 20 MEQ TAB.ER PO SCH ×2 (08:44→21:09)
--- NOTE | 2024-09-10 10:51 | P.PN ---
Subjective Progress Note Date: 09/10/24 This is an 78-year-old female patient with no prior cardiac history but medical history significant for chronic hypoxic respiratory failure secondary to COPD and alpha 1 antitrypsin deficiency presented to the hospital with progressive exertional dyspnea associated with progressive bilateral lower extremity edema for the last few days. No symptoms of chest pain or chest discomfort but she felt she was experiencing severe congestions with no fever and no chills and no cough and no sputum production. No other cardiovascular symptoms of dizziness or lightheadedness or any feeling of heart racing or fluttering or presyncope or syncope. She developed severe bilateral lower extremities edema. When she presented to the hospital she was hypoxic requiring high flow oxygen. Normally she is on 2 L of oxygen continuously. Definitely her oxygen requirement has increased within the last few days and she has been doing pulse oximetry at home and noticed that her oxygen saturation has been low. She underwent further evaluation including EKG showing RBBB. NT proBNP came to be elevated at 5000. First set of troponin is unremarkable with chest x-ray showed finding consistent with pulmonary vascular congestions and left pleural effusion but CT scan of the chest showed no evidence of PE. Venous duplex study showed no evidence of DVT as well. The physical examination is remarkable for regular rhythm with a systolic murmur at the right and left upper sternal border with diminished breathing sounds bilaterally and bilateral rhonchi and severe bilateral lower extremities pitting edema. I initially saw this patient in my office. She was hypoxic and she was in significant volume overload with extensive lower extremity edema. I directed this patient to the Emergency Department. After being in the hospital for around 3 days, the patient remained hypoxic and the patient remains on Airvo at 45 L with an FiO2 of 65%. Based on that, a pulmonary consultation was requested. I reviewed the CT of the chest that was done on this patient. The patient has extensive emphysematous changes rubina aterally and the patient also has a moderate-sized left-sided pleural effusion. No airspace disease. No consolidation. No pneumonias. There is also a new moderate to small size pericardial effusion. Echocardiogram was completed on 08/31/2024 and the patient was found to have a preserved LV function with an EF of around 65% and the patient also had severe RV dilatation, reduced RV global systolic function and severe pulmonary hypertension along with moderate pericardial effusion without signs of any tamponade. The patient had severe tricuspid regurgitation. Estimated right ventricular systolic pressure was 94. For now, the patient is on Lasix 40 mg IV every 12 hours. Monitoring her fluid balance has been essentially negative and the patient has been -2.2 L over the past 24 hours. Most recent electrolytes show a sodium level of 132, potassium of 3.6, BUN 31 with a creatinine 0.7. The white cell count is at 8.8 with a hemoglobin 17.3. She is currently on Lasix 40 mg IV every 12 hours. She is also on Aldactone 25 mg p.o. daily. She remains on IV heparin. The procalcitonin level was 0.08. Troponins were nonelevated. On 09/05/2024, the patient is being seen for a follow-up. The patient is calm and comfortable. The patient is currently on Airvo 45 L with an FiO2 of 65%. She remains on Bumex 1 mg p.o. twice daily and Aldactone 25 mg p.o. daily. She has been diuresing well over the past several days and the patient has been negative fluid balance of 1.1 L over the past 24 hours. No significant shortness of breath at rest. Continues to have significant amount of edema lower extremities bilaterally. The white cell count is at 8.4 with a hemoglobin 17.4 and a jurgen telet count of 167. BUN is 30 with a creatinine of of 0.7. Sodium level is at 132 and a potassium level is at 3.5. Viral screen was negative. Chest x-ray from yesterday was consistent with COPD with chronic emphysematous changes and cardiomegaly and small left-sided pleural effusion. The patient also was noted to have a moderate-sized pericardial effusion without signs of tamponade. The patient was taken off the IV Lasix and the patient was started on Bumex in combination with Aldactone. 09/06/2024, the patient remains on Airvo 45 L with FiO2 of 50%. The fluid balance has been +125 cc over the past 24 hours. Based on that, making recommendations to start the patient on Lasix drip at 5 mg an hour. She continues to have significant amount of edema lower extremities bilaterally. Further workup was ordered by the medical group including a Doppler of lower extremity that showed no evidence of any DVT and CTA of the chest that showed no evidence of any pulmonary embolism. There was extensive bilateral severe emphysematous changes and a chronic left-sided pleural effusion. Based on that, I performed a bedside thoracentesis this patient and I drained approximately 800 cc of pleural fluid from the left lung. The patient tolerated the procedure well without any complications. The fluid will be sent for analysis. The white cell count is 8.4, hemoglobin is 17.4 and platelet count of 167. BUN is 30 with a creatinine of 0.7 and sodium is at 132 and a potassium level is at 3.5. 09/07/2024, the patient is being seen for a follow-up. The patient remains on Airvo at 45 L and FiO2 of 65%. Pulse ox is in the order of 92%. Remains dependent on high flow oxygen. She continues to diurese with Lasix drip at 5 mg an hour. She is postthoracentesis and a total of 800 cc of pleural fluid was aspirated from the left lung. The pleural fluid was a transudate. The chemistry that showed low LDH and low protein. The white cell count was also low with a lymphocytic predominance. The patient has no specific complaints. The white cell count is at 5.6, hemoglobin is 16.6 and a platelet count is at 153. Sodium is at 130, BUN 29 with a creatinine of 0.7. K level is at 3.4. Roz dozier on [facility]. Will start IV Solu-Medrol. 09/08/2024, the patient is being seen for a follow-up. Remains on Airvo 40 L and FiO2 of 65%. Currently on Lasix drip at 5 mg an hour. Also on Zaroxolyn 5 mg p.o. twice a day.. She is also on a combination of bronchodilators and IV Solu-Medrol. Unfortunately, no significant improvement in oxygenation over the past 24 hours and will continue to monitor. The white cell count of 9.5, hemoglobin is at 15.6 and a platelet count of 156. Sodium levels at 129, potassium level 3.3. BUN is 34 with a creatinine of 0.7. Procalcitonin level is at 0.08. Cortisol level is at 32. Pleural fluid aspirated from the left lung was consistent with a transudate. On 09/09/2024, the patient was taken off the Airvo and the patient was placed on 12 L of oxygen by nasal cannula. Current pulse ox is around 88%. She is calm and comfortable. Denies having any new complaints. I am not sure if the patient is having accurate input output measurement. Nevertheless, based on the fluid balance, she is +500 cc over the past 24 hours. She is off the Lasix drip and the patient is currently receiving Lasix 40 mg IV every 12 hours. She is also on Zaroxolyn 5 mg p.o. twice a day. He is also on Aldactone 25 mg p.o. daily. Doing well. Afebrile. Hemodynamically stable. Blood work from today shows a white cell count of 10.3, hemoglobin of 15 and a platelet count of 176. BUN 36 with a creatinine of 0.7. Sodium level is at 128. No other significant events otherwise for now. 09/10/2024, the patient is doing well on 12 L of oxygen by nasal cannula. Pulse ox is ranging between 88 to 92%. No specific complaints. She still diuresing with a combination of Zaroxolyn and IV Lasix. There is some residual lower extremity edema. The white cell count of 8.7 with a hemoglobin of 6.4 and a platelet count of 161. Patient also has a stable level of 127, potassium level of 3.4,, chloride 86, BUN is 40 with a creatinine of 0.6. Objective - Vital Signs Vital signs: Vital Signs Temp 97.5 F L 09/10/24 04:00 Pulse 76 09/10/24 04:00 Resp 20 09/10/24 04:00 BP 94/58 09/10/24 04:00 Pulse Ox 92 L 09/10/24 04:00 FiO2 70 09/09/24 08:20 Intake & Output 09/09/24 09/10/24 09/10/24 18:59 06:59 18:59 Intake Total 340 10 Output Total 1275 700 Balance -935 -690 Weight 70.1 kg Intake: IV 10 0.9 10 Oral 340 Output: Urine 1275 700 Other: Voiding Method Indwelling Catheter Indwelling Catheter # Bowel Movements 1 - Exam the patient appeared well nourished and normally developed. Vital signs as documented. The patient is currently on 12 L of oxygen nasal cannula Head exam is unremarkable. No scleral icterus or corneal arcus noted. Neck is with jugular venous distension, thyromegaly, or carotid bruits. Carotid upstrokes are brisk bilaterally. Lungs a marked diminished breath sounds bilateral especially in the left lung base Cardiac exam reveals the PMI to be normally sized and situated. Rhythm is regular. First and second heart sounds normal. No murmurs, rubs or gallops. There is accentuation of second heart sound Abdominal exam reveals normal bowel sounds, no masses, no organomegaly and no aortic enlargement. Extremities are edematous and both femoral and pedal pulses are normal. Examination of the skin revealed no evidence of significant rashes, suspicious appearing nevi or other concerning lesions. Neurologically, the patient is awake and alert and the patient does not have any focal neurological deficit. Cranial nerves are essentially intact. - Labs CBC & Chem 7: 09/10/24 07:02 09/10/24 07:02 Labs: Abnormal Lab Results - Last 24 Hours (Table) 09/09/24 09/09/24 09/09/24 Range/Units 11:19 16:07 19:55 Hct (34.0-46.0) % RDW (11.5-15.5) % Neutrophils # (1.3-7.7) k/uL Lymphocytes # (1.0-4.8) k/uL Sodium (137-145) mmol/L Potassium (3.5-5.1) mmol/L Chloride (98-107) mmol/L Carbon Dioxide (22-30) mmol/L BUN (7-17) mg/dL Glucose (74-99) mg/dL POC Glucose (mg/dL) 132 H 162 H 189 H (70-110) mg/dL 09/10/24 09/10/24 09/10/24 Range/Units 05:51 07:02 07:02 Hct 49.0 H (34.0-46.0) % RDW 15.6 H (11.5-15.5) % Neutrophils # 7.9 H (1.3-7.7) k/uL Lymphocytes # 0.3 L (1.0-4.8) k/uL Sodium 127 L (137-145) mmol/L Potassium 3.4 L (3.5-5.1) mmol/L Chloride 86 L (98-107) mmol/L Carbon Dioxide 36 H (22-30) mmol/L BUN 40 H (7-17) mg/dL Glucose 128 H (74-99) mg/dL POC Glucose (mg/dL) 144 H (70-110) mg/dL Microbiology - Last 24 Hours (Table) 09/06/24 11:30 Gram Stain - Preliminary Pleural Fluid Body Fluid Culture - Preliminary Assessment and Plan Plan: acute on chronic hypoxic respiratory failure. The patient is currently on AIRVO she is typically on home O2 at 3 L/min nasal cannula. Reviewed the CT of the chest. No evidence of any pulm embolism. There are some atelectatic changes and small left-sided pleural effusion. The patient also has a moderate- sized pericardial effusion without signs of tamponade. Patient is postthoracentesis of the left lung that was done on 09/06/2024. Pleural fluid is a transudate. Currently on Lasix 40 mg IV every 12 hours, Zaroxolyn 5 mg p.o. twice daily and Aldactone. Patient has been weaned off Airvo and the patient was switched to high flow nasal cannula 12 L/min. Chronic right-sided heart failure with severe pulmonary hypertension and severe tricuspid regurgitation Chronic lower extremity edema with obvious signs of fluid overload, improvement in lower extremity edema Moderate-sized pericardial effusion, without signs of tamponade Severe pulmonary hypertension, WHO group 3 Advanced and chronic COPD with history of alpha 1 antitrypsin deficiency. The patient has MZ disease. She has been maintained on a combination of budesonide and Perforomist and Yupelri an outpatient basis in addition to albuterol nebulized treatments on as-needed basis Chronic anxiety Panic attacks Gout Urinary retention, seen by urology. Alba catheter has been inserted. Hypochloremic hyponatremia secondary to diuresis Plan Titrate oxygen flow, currently on 12 L with a pulse ox of 92 %. She is known to have chronic hypoxemia. Thoracentesis of the left lung was done and a total of 800 cc of pleural fluid was aspirated. The fluid is a transudate Continue Lasix 40 mg p.o. twice a day Continue Zaroxolyn 5 mg p.o. twice a day Aldactone Continue IV Solu-Medrol 40 mg every 8 hours Continue bronchodilators Titrate oxygen flow to maintain saturation above 90% Reviewed the CAT scan of the chest. Reviewed the Doppler of the lower extremities. Will discuss the pericardial effusion with cardiology Prognosis extremely poor based on above-mentioned comorbidities. Poor baseline performance and functional status. Unfortunately, not a whole lot can be offered from a pulmonary standpoint. This is a group 3 pulmonary hypertension. Will continue to follow DNR/DNI CODE STATUS
[2024-09-10 11:19] LABS: Glucose,Whole Blood 145 mg/dL (70-110)
--- NOTE | 2024-09-10 13:35 | P.PN ---
Subjective Progress Note Date: 09/10/24 This is an 78-year-old female patient with no prior cardiac history but medical history significant for chronic hypoxic respiratory failure secondary to COPD and alpha 1 antitrypsin deficiency presented to the hospital with progressive exertional dyspnea associated with progressive bilateral lower extremity edema for the last few days. No symptoms of chest pain or chest discomfort but she felt she was experiencing severe congestions with no fever and no chills and no cough and no sputum production. No other cardiovascular symptoms of dizziness or lightheadedness or any feeling of heart racing or fluttering or presyncope or syncope. She developed severe bilateral lower extremities edema. When she presented to the hospital she was hypoxic requiring high flow oxygen. Normally she is on 2 L of oxygen continuously. Definitely her oxygen requirement has increased within the last few days and she has been doing pulse oximetry at home and noticed that her oxygen saturation has been low. She underwent further evaluation including EKG showing RBBB. NT proBNP came to be elevated at 5000. First set of troponin is unremarkable with chest x-ray showed finding consistent with pulmonary vascular congestions and left pleural effusion but CT scan of the chest showed no evidence of PE. Venous duplex study showed no evidence of DVT as well. The physical examination is remarkable for regular rhythm with a systolic murmur at the right and left upper sternal border with diminished breathing sounds bilaterally and bilateral rhonchi and severe bilateral lower extremities pitting edema September 01, 2024 The patient was seen and evaluated this morning. She is overall feeling better. She still have bilateral lower extremities edema. The pressure remains marginal but appears to be better today which she was started on midodrine yesterday. Am going to stop the midodrine and decrease the dose of Lasix from 40 mg IV twice daily to 20 mg IV twice daily giving the marginally low blood pressure and also giving the finding on the echo including severe pulmonary hypertension and moderate pericardial effusion without tamponade physiology. The physical examination is remarkable for bilateral lower extremities edema. The troponin came to be mildly abnormal and I would consider medical treatment in the absence of any chest pain. September 02, 2024 The patient was seen and evaluated this morning. She is still hypoxic requiring high flow oxygen she still have severe bilateral lower extremities edema. Her pressure is better and with that I am going to increase the dose of Lasix to 40 mg IV twice daily which she is hypokalemic and the potassium is in process to be replaced. The physical examination is remarkable for diminished breathing sounds bilaterally and severe bilateral lower extremities edema. September 03, 2024 The patient was seen and evaluated this morning. The bilateral lower extremities edema has somewhat improved but continues to be there. She is on Lasix IV. I would suggest continue the current dose of Lasix IV and will follow-up with the blood work from the morning which is still pending. Otherwise she remains hemodynamically stable. No symptoms of chest pain or chest discomfort. The physical examination is remarkable for moderate bilateral lower extremities pitting edema with diminished breathing sounds bilaterally. Definitely the edema has improved after we increase the dose of Lasix yesterday. 09/04/2024 Patient is seen and examined at bedside this a.m. She is sitting in the chair with a high flow nasal cannula oxygen. 2+ pitting edema bilateral lower extremity, mild crackles in lung gupta, minimal wheezing. Alert oriented, reports that symptomatically she feels better since the time for admission. Blood pressure is borderline low with SBP around 90s to 100 mmHg. 09/05/2024 Patient is seen and examined at bedside this a.m. She continues to be on high flow nasal cannula 1-2+ pitting edema bilateral extremity with mild crackles in lung gupta with minimal wheezing Alert oriented Reports symptomatically feeling better. Blood pressure and heart rates are within acceptable ranges kidney function and electrolytes are within acceptable ranges. 09/06/2024 Patient examined this morning at the bedside. She remains on Airvo. She continues to report shortness of breath. She is currently on oral Bumex. She also is complaining of her left knee hurting. Repeat limited echo reveals severe right ventricular and right atrial enlargement, dilated IVC, moderate pericardial effusion mostly anterior. Venous Doppler completed negative for DVT. Patient underwent chest CTA which was negative for pulmonary embolism. Evidence of right heart strain, pulmonary hypertension with bilateral pleural effusions, pulmonary vascular congestion, and cardiomegaly. Moderate to severe emphysema. 09/07/2024 Patient examined this morning at the bedside. She is sitting up in the chair. She continues to report shortness of breath. She denies any chest pain or pressure. She underwent left-sided thoracentesis yesterday with removal of 800 cc. Postprocedure chest x-ray revealed trace pneumothorax. Blood pressure is low in the 90s. 09/08/2024 Patient examined this morning at the bedside. Patient currently denies chest pain or pressure. She reports mild shortness of breath. She remains on IV Lasix per pulmonary medicine. Sodium today 129. Potassium 3.3. BUN 34. Creatinine 0.75. 09/09/2024 Changed from high flow nasal cannula to 12 L nasal cannula supplemental oxygen Blood pressure is borderline low Kidney function is stable with borderline low sodium and potassium Appropriate urine output Negative fluid balance of 1100 cc today last 24 hours 09/10/2024 Patient seen and examined at bedside this a.m., kidney function is stable, pota ssium is 3.4 Still has mild residual lower extremity edema, on 2 L of nasal cannula supplemental oxygen. PHYSICAL EXAM: VITAL SIGNS: Reviewed. GENERAL: Well-developed in no acute distress. NECK: Supple. No JVD or thyromegaly LUNGS: Respirations even and unlabored. Lungs with crackles bilaterally. HEART: Regular rate and rhythm. S1 and S2 heard. EXTREMITIES: Normal range of motion. No clubbing or cyanosis. Peripheral pulses intact. 2+ bilateral lower extremity edema ASSESSMENT: Shortness of breath Acute on chronic hypoxic respiratory failure Acute on chronic heart failure with preserved EF Acute Cor pulmonale Moderate pericardial effusion Severe pulmonary hypertension Left pleural effusion, status post thoracentesis with removal 800 cc, 09/06/2024 Trace pneumothorax, post thoracentesis PLAN: Continue IV Lasix 40 mg every 12 hours Metolazone 5 mg twice daily Aspirin 81 mg, Aldactone 25 mg daily Daily weights, accurate intake and output, monitoring of kidney function Continue current cardiac medications including aspirin, Aldactone Overall penitentiary prognosis is guarded Objective - Vital Signs Vital signs: Vital Signs Temp 98.2 F 09/10/24 11:48 Pulse 82 09/10/24 13:05 Resp 18 09/10/24 13:05 BP 122/80 09/10/24 11:48 Pulse Ox 91 L 09/10/24 11:48 FiO2 70 09/09/24 08:20 Intake & Output 09/09/24 09/10/24 09/10/24 18:59 06:59 18:59 Intake Total 340 10 580 Output Total 1275 700 725 Balance -809 -208 -145 Weight 70.1 kg Intake: IV 10 0.9 10 Oral 340 580 Output: Urine 1275 700 725 Other: Voiding Method Indwelling Catheter Indwelling Catheter Indwelling Catheter # Bowel Movements 1 - Labs CBC & Chem 7: 09/10/24 07:02 09/10/24 07:02 Labs: Abnormal Lab Results - Last 24 Hours (Table) 09/09/24 09/09/24 09/10/24 Range/Units 16:07 19:55 05:51 Hct (34.0-46.0) % RDW (11.5-15.5) % Neutrophils # (1.3-7.7) k/uL Lymphocytes # (1.0-4.8) k/uL Sodium (137-145) mmol/L Potassium (3.5-5.1) mmol/L Chloride (98-107) mmol/L Carbon Dioxide (22-30) mmol/L BUN (7-17) mg/dL Glucose (74-99) mg/dL POC Glucose (mg/dL) 162 H 189 H 144 H (70-110) mg/dL 09/10/24 09/10/24 09/10/24 Range/Units 07:02 07:02 11:18 Hct 49.0 H (34.0-46.0) % RDW 15.6 H (11.5-15.5) % Neutrophils # 7.9 H (1.3-7.7) k/uL Lymphocytes # 0.3 L (1.0-4.8) k/uL Sodium 127 L (137-145) mmol/L Potassium 3.4 L (3.5-5.1) mmol/L Chloride 86 L (98-107) mmol/L Carbon Dioxide 36 H (22-30) mmol/L BUN 40 H (7-17) mg/dL Glucose 128 H (74-99) mg/dL POC Glucose (mg/dL) 145 H (70-110) mg/dL Microbiology - Last 24 Hours (Table) 09/06/24 11:30 Gram Stain - Final Pleural Fluid Body Fluid Culture - Final 09/06/24 11:30 Anaerobic Culture - Final Pleural Fluid
[2024-09-10] MEDS: FUROSEMIDE 40 MG TAB PO SCH (15:40)
[2024-09-10 15:57] LABS: Glucose,Whole Blood 130 mg/dL (70-110)
[2024-09-10 19:59] LABS: Glucose,Whole Blood 139 mg/dL (70-110)
--- NOTE | 2024-09-11 02:06 | PN ---
PROGRESS NOTE DATE OF SERVICE: 09/10/2024 SUBJECTIVE: This 78-year-old woman, who was admitted with COPD and CHF acute exacerbation, on nasal cannula at this time. The patient is post AIRVO. The patient is on 12 L high-flow. PHYSICAL EXAMINATION: VITAL SIGNS: Pulse is 85, blood pressure 103/76, respirations 16. CHEST: Few scattered rhonchi. ABDOMEN: Soft. NERVOUS SYSTEM: Nonfocal. LABORATORY DATA: Reviewed. ASSESSMENT: 1. Shortness of breath secondary to congestive heart failure with acute exacerbation with chronic obstructive pulmonary disease, acute exacerbation with asthma, acute exacerbation with acute hypoxic respiratory failure, status post AIRVO, on high- flow nasal cannula. 2. Left pleural effusion, status post thoracocenteses, possibly inflammatory. 3. [id number] cor pulmonale. 4. Moderate pericardial effusion, mostly anterior. 5. Left lower lobe pneumonia, possibly gram-negative. RECOMMENDATIONS: Recommend to continue current medications, symptomatic treatment. Otherwise, monitor potassium closely. Continue with Lasix. Repeat labs. Titrate off the oxygen further. I would increase the dose of K to potassium 20 mEq p.o. b.i.d. Further recommendations to follow. MMODL / IJN: [id number] /
[2024-09-11 05:59] LABS: Glucose,Whole Blood 162 mg/dL (70-110)
[2024-09-11 06:39] LABS: Basophils % (A) 0 %; Eosinophils % (A) 0 %; HCT 53.7 % (34.0-46.0); HGB 16.4 gm/dL (11.4-16.0); Lymphocytes # (A) 0.2 k/uL (1.0-4.8); Lymphocytes % (A) 3 %; MCH 29.8 pg (25.0-35.0); MCHC 30.5 g/dL (31.0-37.0); MCV 97.7 fL (80.0-100.0); Monocytes # (A) 0.5 k/uL (0-1.0); Monocytes % (A) 6 %; Neutrophils # (A) 8.5 k/uL (1.3-7.7); Neutrophils % (A) 91 %; Platelet Count 184 k/uL (150-450); RBC 5.49 m/uL (3.80-5.40); RDW 15.7 % (11.5-15.5); WBC 9.3 k/uL (3.8-10.6)
[2024-09-11 07:03] LABS: African American GFR (CKD) 86 (>60 ml/min/1.73 sqM); Anion Gap 6 mmol/L; Blood Urea Nitrogen 39 mg/dL (7-17); Calcium 8.8 mg/dL (8.4-10.2); Carbon Dioxide 38 mmol/L (22-30); Chloride 84 mmol/L (98-107); Glucose 168 mg/dL (74-99); Magnesium 1.9 mg/dL (1.6-2.3); Non-African American GFR(CKD) 75 (>60 ml/min/1.73 sqM); Sodium 128 mmol/L (137-145)
[2024-09-11] MEDS: metOLazone 5 MG TAB PO SCH (09:23)
[2024-09-11 11:15] LABS: Glucose,Whole Blood 112 mg/dL (70-110)
--- NOTE | 2024-09-11 12:48 | P.PN ---
Subjective Progress Note Date: 09/11/24 This is an 78-year-old female patient with no prior cardiac history but medical history significant for chronic hypoxic respiratory failure secondary to COPD and alpha 1 antitrypsin deficiency presented to the hospital with progressive exertional dyspnea associated with progressive bilateral lower extremity edema for the last few days. No symptoms of chest pain or chest discomfort but she felt she was experiencing severe congestions with no fever and no chills and no cough and no sputum production. No other cardiovascular symptoms of dizziness or lightheadedness or any feeling of heart racing or fluttering or presyncope or syncope. She developed severe bilateral lower extremities edema. When she presented to the hospital she was hypoxic requiring high flow oxygen. Normally she is on 2 L of oxygen continuously. Definitely her oxygen requirement has increased within the last few days and she has been doing pulse oximetry at home and noticed that her oxygen saturation has been low. She underwent further evaluation including EKG showing RBBB. NT proBNP came to be elevated at 5000. First set of troponin is unremarkable with chest x-ray showed finding consistent with pulmonary vascular congestions and left pleural effusion but CT scan of the chest showed no evidence of PE. Venous duplex study showed no evidence of DVT as well. The physical examination is remarkable for regular rhythm with a systolic murmur at the right and left upper sternal border with diminished breathing sounds bilaterally and bilateral rhonchi and severe bilateral lower extremities pitting edema September 01, 2024 The patient was seen and evaluated this morning. She is overall feeling better. She still have bilateral lower extremities edema. The pressure remains marginal but appears to be better today which she was started on midodrine yesterday. Am going to stop the midodrine and decrease the dose of Lasix from 40 mg IV twice daily to 20 mg IV twice daily giving the marginally low blood pressure and also giving the finding on the echo including severe pulmonary hypertension and moderate pericardial effusion without tamponade physiology. The physical examination is remarkable for bilateral lower extremities edema. The troponin came to be mildly abnormal and I would consider medical treatment in the absence of any chest pain. September 02, 2024 The patient was seen and evaluated this morning. She is still hypoxic requiring high flow oxygen she still have severe bilateral lower extremities edema. Her pressure is better and with that I am going to increase the dose of Lasix to 40 mg IV twice daily which she is hypokalemic and the potassium is in process to be replaced. The physical examination is remarkable for diminished breathing sounds bilaterally and severe bilateral lower extremities edema. September 03, 2024 The patient was seen and evaluated this morning. The bilateral lower extremities edema has somewhat improved but continues to be there. She is on Lasix IV. I would suggest continue the current dose of Lasix IV and will follow-up with the blood work from the morning which is still pending. Otherwise she remains hemodynamically stable. No symptoms of chest pain or chest discomfort. The physical examination is remarkable for moderate bilateral lower extremities pitting edema with diminished breathing sounds bilaterally. Definitely the edema has improved after we increase the dose of Lasix yesterday. 09/04/2024 Patient is seen and examined at bedside this a.m. She is sitting in the chair with a high flow nasal cannula oxygen. 2+ pitting edema bilateral lower extremity, mild crackles in lung gupta, minimal wheezing. Alert oriented, reports that symptomatically she feels better since the time for admission. Blood pressure is borderline low with SBP around 90s to 100 mmHg. 09/05/2024 Patient is seen and examined at bedside this a.m. She continues to be on high flow nasal cannula 1-2+ pitting edema bilateral extremity with mild crackles in lung gupta with minimal wheezing Alert oriented Reports symptomatically feeling better. Blood pressure and heart rates are within acceptable ranges kidney function and electrolytes are within acceptable ranges. 09/06/2024 Patient examined this morning at the bedside. She remains on Airvo. She continues to report shortness of breath. She is currently on oral Bumex. She also is complaining of her left knee hurting. Repeat limited echo reveals severe right ventricular and right atrial enlargement, dilated IVC, moderate pericardial effusion mostly anterior. Venous Doppler completed negative for DVT. Patient underwent chest CTA which was negative for pulmonary embolism. Evidence of right heart strain, pulmonary hypertension with bilateral pleural effusions, pulmonary vascular congestion, and cardiomegaly. Moderate to severe emphysema. 09/07/2024 Patient examined this morning at the bedside. She is sitting up in the chair. She continues to report shortness of breath. She denies any chest pain or pressure. She underwent left-sided thoracentesis yesterday with removal of 800 cc. Postprocedure chest x-ray revealed trace pneumothorax. Blood pressure is low in the 90s. 09/08/2024 Patient examined this morning at the bedside. Patient currently denies chest pain or pressure. She reports mild shortness of breath. She remains on IV Lasix per pulmonary medicine. Sodium today 129. Potassium 3.3. BUN 34. Creatinine 0.75. 09/09/2024 Changed from high flow nasal cannula to 12 L nasal cannula supplemental oxygen Blood pressure is borderline low Kidney function is stable with borderline low sodium and potassium Appropriate urine output Negative fluid balance of 1100 cc today last 24 hours 09/10/2024 Patient seen and examined at bedside this a.m., kidney function is stable, pot assium is 3.4 Still has mild residual lower extremity edema, on 2 L of nasal cannula supplemental oxygen. 09/11 Patient seen and examined. Blood pressure 110/65, heart rate 80. Patient states that she is feeling much better. 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 She still has a little edema to the lower extremities but she states this is much better. Blood pressure 107/73, heart rate 79, pulse ox 90% on 12 L high flow nasal cannula. Repeat blood work reveals hemoglobin 16.4. Sodium 128, BUN 39 creatinine 0.76, CO2 38. Yesterday, IV Lasix was transitioned to oral by pulmonary medicine. Patient has a negative fluid balance with documented weight loss of 7 kg. PHYSICAL EXAM: VITAL SIGNS: Reviewed. GENERAL: Well-developed in no acute distress. NECK: Supple. + JVD, no thyromegaly LUNGS: Respirations even and unlabored. mild decreased breath sounds on the left. HEART: Regular rate and rhythm. S1 and S2 heard. 2/6 systolic murmur. EXTREMITIES: No clubbing or cyanosis. Peripheral pulses intact. 1+ bilateral lower extremity edema ASSESSMENT: Shortness of breath Acute on chronic hypoxic respiratory failure Acute on chronic heart failure with preserved EF Acute Cor pulmonale Moderate pericardial effusion Severe pulmonary hypertension Left pleural effusion, status post thoracentesis with removal 800 cc, 09/06/2024 Trace pneumothorax, post thoracentesis PLAN: Continue oral Lasix 40 mg twice daily Metolazone 5 mg decreased frequency to once daily Continue aspirin 81 mg, Aldactone 25 mg daily Daily weights, accurate intake and output, monitoring of kidney function Continue current cardiac medications including aspirin, Aldactone Overall residential prognosis is guarded Nurse practitioner note has been reviewed, I agree with documented findings and plan of care. Patient was seen and examined. Objective - Vital Signs Vital signs: Vital Signs Temp 97.7 F 09/11/24 04:00 Pulse 80 09/11/24 08:15 Resp 18 09/11/24 04:00 BP 100/65 09/11/24 04:00 Pulse Ox 90 L 09/11/24 08:04 FiO2 70 09/09/24 08:20 Intake & Output 09/10/24 09/11/24 09/11/24 18:59 06:59 18:59 Intake Total 842 250 Output Total 1225 850 Balance -383 -600 Weight 69.8 kg Intake: IV 10 0.9 10 Oral 842 240 Output: Urine 1225 850 Other: Voiding Method Indwelling Catheter Indwelling Catheter # Bowel Movements 1 - Labs CBC & Chem 7: 09/11/24 05:42 09/11/24 05:42 Labs: Abnormal Lab Results - Last 24 Hours (Table) 09/10/24 09/10/24 09/10/24 Range/Units 11:18 15:55 19:58 RBC (3.80-5.40) m/uL Hgb (11.4-16.0) gm/dL Hct (34.0-46.0) % MCHC (31.0-37.0) g/dL RDW (11.5-15.5) % Neutrophils # (1.3-7.7) k/uL Lymphocytes # (1.0-4.8) k/uL Sodium (137-145) mmol/L Chloride (98-107) mmol/L Carbon Dioxide (22-30) mmol/L BUN (7-17) mg/dL Glucose (74-99) mg/dL POC Glucose (mg/dL) 145 H 130 H 139 H (70-110) mg/dL 09/11/24 09/11/24 09/11/24 Range/Units 05:42 05:42 05:59 RBC 5.49 H (3.80-5.40) m/uL Hgb 16.4 H (11.4-16.0) gm/dL Hct 53.7 H (34.0-46.0) % MCHC 30.5 L (31.0-37.0) g/dL RDW 15.7 H (11.5-15.5) % Neutrophils # 8.5 H (1.3-7.7) k/uL Lymphocytes # 0.2 L (1.0-4.8) k/uL Sodium 128 L (137-145) mmol/L Chloride 84 L (98-107) mmol/L Carbon Dioxide 38 H (22-30) mmol/L BUN 39 H (7-17) mg/dL Glucose 168 H (74-99) mg/dL POC Glucose (mg/dL) 162 H (70-110) mg/dL Microbiology - Last 24 Hours (Table) 09/06/24 11:30 Gram Stain - Final Pleural Fluid Body Fluid Culture - Final 09/06/24 11:30 Anaerobic Culture - Final Pleural Fluid
--- NOTE | 2024-09-11 14:02 | P.PN ---
Subjective Progress Note Date: 09/11/24 The patient has been in the hospital with shortness of breath due to severe cardiopulmonary problems. She has had problems with urine retention. She has an indwelling catheter at present. Objective - Vital Signs Vital signs: Vital Signs Temp 97.9 F 09/11/24 12:08 Pulse 80 09/11/24 12:30 Resp 18 09/11/24 12:08 BP 107/73 09/11/24 12:08 Pulse Ox 90 L 09/11/24 12:08 FiO2 70 09/09/24 08:20 Intake & Output 09/10/24 09/11/24 09/11/24 18:59 06:59 18:59 Intake Total 842 250 960 Output Total 1225 850 Balance -383 -600 960 Weight 69.8 kg Intake: IV 10 0.9 10 Oral 842 240 960 Output: Urine 1225 850 Other: Voiding Method Indwelling Catheter Indwelling Catheter Indwelling Catheter # Bowel Movements 1 0 - Labs CBC & Chem 7: 09/11/24 05:42 09/11/24 05:42 Labs: Abnormal Lab Results - Last 24 Hours (Table) 09/10/24 09/10/24 09/11/24 Range/Units 15:55 19:58 05:42 RBC 5.49 H (3.80-5.40) m/uL Hgb 16.4 H (11.4-16.0) gm/dL Hct 53.7 H (34.0-46.0) % MCHC 30.5 L (31.0-37.0) g/dL RDW 15.7 H (11.5-15.5) % Neutrophils # 8.5 H (1.3-7.7) k/uL Lymphocytes # 0.2 L (1.0-4.8) k/uL Sodium (137-145) mmol/L Chloride (98-107) mmol/L Carbon Dioxide (22-30) mmol/L BUN (7-17) mg/dL Glucose (74-99) mg/dL POC Glucose (mg/dL) 130 H 139 H (70-110) mg/dL 09/11/24 09/11/24 09/11/24 Range/Units 05:42 05:59 11:13 RBC (3.80-5.40) m/uL Hgb (11.4-16.0) gm/dL Hct (34.0-46.0) % MCHC (31.0-37.0) g/dL RDW (11.5-15.5) % Neutrophils # (1.3-7.7) k/uL Lymphocytes # (1.0-4.8) k/uL Sodium 128 L (137-145) mmol/L Chloride 84 L (98-107) mmol/L Carbon Dioxide 38 H (22-30) mmol/L BUN 39 H (7-17) mg/dL Glucose 168 H (74-99) mg/dL POC Glucose (mg/dL) 162 H 112 H (70-110) mg/dL Microbiology - Last 24 Hours (Table) 09/06/24 11:30 Gram Stain - Final Pleural Fluid Body Fluid Culture - Final Assessment and Plan Assessment: Impression: Congestive heart failure COPD, urine retention, situational Recommendations: Is off IV fluids. She seems to be doing better. I will remove the catheter tomorrow for voiding trial.
[2024-09-11 16:33] LABS: Glucose,Whole Blood 117 mg/dL (70-110)
--- NOTE | 2024-09-11 16:46 | P.PN ---
Subjective Progress Note Date: 09/11/24 Principal diagnosis: Acute on chronic hypoxic respiratory failure, multifactorial This is an 78-year-old female patient with no prior cardiac history but medical history significant for chronic hypoxic respiratory failure secondary to COPD and alpha 1 antitrypsin deficiency presented to the hospital with progressive exertional dyspnea associated with progressive bilateral lower extremity edema for the last few days. No symptoms of chest pain or chest discomfort but she felt she was experiencing severe congestions with no fever and no chills and no cough and no sputum production. No other cardiovascular symptoms of dizziness or lightheadedness or any feeling of heart racing or fluttering or presyncope or syncope. She developed severe bilateral lower extremities edema. When she presented to the hospital she was hypoxic requiring high flow oxygen. Normally she is on 2 L of oxygen continuously. Definitely her oxygen requirement has increased within the last few days and she has been doing pulse oximetry at home and noticed that her oxygen saturation has been low. She underwent further evaluation including EKG showing RBBB. NT proBNP came to be elevated at 5000. First set of troponin is unremarkable with chest x-ray showed finding consistent with pulmonary vascular congestions and left pleural effusion but CT scan of the chest showed no evidence of PE. Venous duplex study showed no evidence of DVT as well. The physical examination is remarkable for regular rhythm with a systolic murmur at the right and left upper sternal border with diminished br eathing sounds bilaterally and bilateral rhonchi and severe bilateral lower extremities pitting edema. I initially saw this patient in my office. She was hypoxic and she was in significant volume overload with extensive lower extremity edema. I directed this patient to the Emergency Department. After being in the hospital for around 3 days, the patient remained hypoxic and the patient remains on Airvo at 45 L with an FiO2 of 65%. Based on that, a pulmonary consultation was requested. I reviewed the CT of the chest that was done on this patient. The patient has extensive emphysematous changes bilaterally and the patient also has a moderate-sized left-sided pleural effusion. No airspace disease. No consolidation. No pneumonias. There is also a new moderate to small size pericardial effusion. Echocardiogram was completed on 08/31/2024 and the patient was found to have a preserved LV function with an EF of around 65% and the patient also had severe RV dilatation, reduced RV global systolic function and severe pulmonary hypertension along with moderate pericardial effusion without signs of any tamponade. The patient had severe tricuspid regurgitation. Estimated right ventricular systolic pressure was 94. For now, the patient is on Lasix 40 mg IV every 12 hours. Monitoring her fluid balance has been essentially negative and the patient has been -2.2 L over the past 24 hours. Most recent electrolytes show a sodium level of 132, potassium of 3.6, BUN 31 with a creatinine 0.7. The white cell count is at 8.8 with a hemoglobin 17.3. She is currently on Lasix 40 mg IV every 12 hours. She is also on Aldactone 25 mg p.o. daily. She remains on IV heparin. The procal citonin level was 0.08. Troponins were nonelevated. On 09/05/2024, the patient is being seen for a follow-up. The patient is calm and comfortable. The patient is currently on Airvo 45 L with an FiO2 of 65%. She remains on Bumex 1 mg p.o. twice daily and Aldactone 25 mg p.o. daily. She has been diuresing well over the past several days and the patient has been negative fluid balance of 1.1 L over the past 24 hours. No significant shortness of breath at rest. Continues to have significant amount of edema lower extremities bilaterally. The white cell count is at 8.4 with a hemoglobin 17.4 and a platelet count of 167. BUN is 30 with a creatinine of of 0.7. Sodium level is at 132 and a potassium level is at 3.5. Viral screen was negative. Chest x-ray from yesterday was consistent with COPD with chronic emphysematous changes and cardiomegaly and small left-sided pleural effusion. The patient also was noted to have a moderate-sized pericardial effusion without signs of tamponade. The patient was taken off the IV Lasix and the patient was started on Bumex in combination with Aldactone. 09/06/2024, the patient remains on Airvo 45 L with FiO2 of 50%. The fluid balance has been +125 cc over the past 24 hours. Based on that, making recommendations to start the patient on Lasix drip at 5 mg an hour. She continues to have significant amount of edema lower extremities bilaterally. Further workup was ordered by the medical group including a Doppler of lower extremity that showed no evidence of any DVT and CTA of the chest that showed no evidence of any pulmonary embolism. There was extensive bilateral severe emphysematous changes and a chronic left-sided pleural effusion. Based on that, I performed a bedside thoracentesis this patient and I drained approximately 800 cc of pleural fluid from the left lung. The patient tolerated the procedure well without any complications. The fluid will be sent for analysis. The white cell count is 8.4, hemoglobin is 17.4 and platelet count of 167. BUN is 30 with a creatinine of 0.7 and sodium is at 132 and a potassium level is at 3.5. 09/07/2024, the patient is being seen for a follow-up. The patient remains on Airvo at 45 L and FiO2 of 65%. Pulse ox is in the order of 92%. Remains dependent on high flow oxygen. She continues to diurese with Lasix drip at 5 mg an hour. She is postthoracentesis and a total of 800 cc of pleural fluid was aspirated from the left lung. The pleural fluid was a transudate. The chemi stry that showed low LDH and low protein. The white cell count was also low with a lymphocytic predominance. The patient has no specific complaints. The white cell count is at 5.6, hemoglobin is 16.6 and a platelet count is at 153. Sodium is at 130, BUN 29 with a creatinine of 0.7. K level is at 3.4. Remains on DuoNeb updrafts. Will start IV Solu-Medrol. 09/08/2024, the patient is being seen for a follow-up. Remains on Airvo 40 L and FiO2 of 65%. Currently on Lasix drip at 5 mg an hour. Also on Zaroxolyn 5 mg p.o. twice a day.. She is also on a combination of bronchodilators and IV Solu- Medrol. Unfortunately, no significant improvement in oxygenation over the past 24 hours and will continue to monitor. The white cell count of 9.5, hemoglobin is at 15.6 and a platelet count of 156. Sodium levels at 129, potassium level 3.3. BUN is 34 with a creatinine of 0.7. Procalcitonin level is at 0.08. Cortisol level is at 32. Pleural fluid aspirated from the left lung was consistent with a transudate. On 09/09/2024, the patient was taken off the Airvo and the patient was placed on 12 L of oxygen by nasal cannula. Current pulse ox is around 88%. She is calm and comfortable. Denies having any new complaints. I am not sure if the patient is having accurate input output measurement. Nevertheless, based on the fluid balance, she is +500 cc over the past 24 hours. She is off the Lasix drip and the patient is currently receiving Lasix 40 mg IV every 12 hours. She is also on Zaroxolyn 5 mg p.o. twice a day. He is also on Aldactone 25 mg p.o. daily. Doing well. Afebrile. Hemodynamically stable. Blood work from today shows a white cell count of 10.3, hemoglobin of 15 and a platelet count of 176. BUN 36 with a creatinine of 0.7. Sodium level is at 128. No other significant events otherwise for now. 09/10/2024, the patient is doing well on 12 L of oxygen by nasal cannula. Pulse ox is ranging between 88 to 92%. No specific complaints. She still diuresing with a combination of Zaroxolyn and IV Lasix. There is some residual lower extremity edema. The white cell count of 8.7 with a hemoglobin of 6.4 and a platelet count of 161. Patient also has a stable level of 127, potassium level of 3.4,, chloride 86, BUN is 40 with a creatinine of 0.6. Patient was seen today on 09/11/2024, remains on the cardiac floor, remains on 12 L high flow nasal cannula, O2 saturation is 92%. Patient has been diuresing wit different diuretics including Zaroxolyn and Lasix, does not seem to be in distress Patient had thoracentesis done by Dr. San about 5 days ago, cytology was negative for malignancy, fluid was mostly transudative in nature. WBC is 9.3 hemoglobin 16.4 electrolytes are relatively normal except of sodium 128, BUN is 39 creatinine 0.76 hemodynamically the patient is stable, clinically she feels better, breathing easier, still being followed by many consultants including cardiology, patient is responding to diuretics but nonetheless she still requiring significant amount of FiO2. Objective - Vital Signs Vital signs: Vital Signs Temp 97.4 F L 09/11/24 15:48 Pulse 88 09/11/24 15:55 Resp 18 09/11/24 15:48 BP 105/69 09/11/24 15:48 Pulse Ox 92 L 09/11/24 15:48 FiO2 70 09/09/24 08:20 Intake & Output 09/10/24 09/11/24 09/11/24 18:59 06:59 18:59 Intake Total 842 250 960 Output Total 1225 850 Balance -383 -600 960 Weight 69.8 kg Intake: IV 10 0.9 10 Oral 842 240 960 Output: Urine 1225 850 Other: Voiding Method Indwelling Catheter Indwelling Catheter Indwelling Catheter # Bowel Movements 1 0 - Exam GENERAL: Revealed 78-year-old female in no distress on 12 L high flow nasal cannula Head: Atraumatic normocephalic NECK: Supple. + JVD, no thyromegaly LUNGS: Diminished breath sounds at the bases no rhonchi no wheezes no crackles HEART: Distant S1-S2, no S3 gallop, 2/6 systolic murmur throughout the precordium Abdomen: Soft nontender No rebound Extremities no clubbing 1+ bipedal edema or cyanosis Neurologic: Alert oriented x 3 no gross focal deficit Psychiatric: Normal mood affect and no mental status examination Skin: No rashes - Labs CBC & Chem 7: 09/11/24 05:42 09/11/24 05:42 Labs: Abnormal Lab Results - Last 24 Hours (Table) 09/10/24 09/11/24 09/11/24 Range/Units 19:58 05:42 05:42 RBC 5.49 H (3.80-5.40) m/uL Hgb 16.4 H (11.4-16.0) gm/dL Hct 53.7 H (34.0-46.0) % MCHC 30.5 L (31.0-37.0) g/dL RDW 15.7 H (11.5-15.5) % Neutrophils # 8.5 H (1.3-7.7) k/uL Lymphocytes # 0.2 L (1.0-4.8) k/uL Sodium 128 L (137-145) mmol/L Chloride 84 L (98-107) mmol/L Carbon Dioxide 38 H (22-30) mmol/L BUN 39 H (7-17) mg/dL Glucose 168 H (74-99) mg/dL POC Glucose (mg/dL) 139 H (70-110) mg/dL 09/11/24 09/11/24 09/11/24 Range/Units 05:59 11:13 16:31 RBC (3.80-5.40) m/uL Hgb (11.4-16.0) gm/dL Hct (34.0-46.0) % MCHC (31.0-37.0) g/dL RDW (11.5-15.5) % Neutrophils # (1.3-7.7) k/uL Lymphocytes # (1.0-4.8) k/uL Sodium (137-145) mmol/L Chloride (98-107) mmol/L Carbon Dioxide (22-30) mmol/L BUN (7-17) mg/dL Glucose (74-99) mg/dL POC Glucose (mg/dL) 162 H 112 H 117 H (70-110) mg/dL Assessment and Plan Assessment: A impression: acute on chronic hypoxic respiratory failure Acute on chronic heart failure with preserved EF Chronic right-sided heart failure with severe pulmonary hypertension Acute Cor pulmonale Moderate pericardial effusion Severe pulmonary hypertension Left pleural effusion, status post thoracentesis with removal 800 cc, 09/06/2024 Trace pneumothorax, post thoracentesis History of panic attacks and generalized anxiety disorder History of gout Urinary retention requiring urology placement of Alba catheter Hyponatremia secondary to diuretics Recommendation:Continue oxygen and titrate accordingly Continue diuretics including Lasix and Zaroxolyn and Aldactone Continue steroids/IV Solu-Medrol Continue bronchodilators Prognosis remains relatively guarded patient has multiple complex comorbidities. Will continue to follow. CODE STATUS remains DNR/DNI Time with Patient: Less than 30
[2024-09-11 20:10] LABS: Glucose,Whole Blood 154 mg/dL (70-110)
--- NOTE | 2024-09-12 01:00 | PN ---
PROGRESS NOTE DATE OF SERVICE: 09/11/2024 SUBJECTIVE: This is an 78-year-old woman, who was admitted with shortness of breath, COPD, and CHF, is still on high-flow oxygen. No chest pain. No palpitation. OBJECTIVE: VITAL SIGNS: Pulse 79, blood pressure 107/76. CHEST: Scattered rhonchi and crackles. ABDOMEN: Soft. LABORATORY DATA: Reviewed. ASSESSMENT: 1. Shortness of breath secondary to congestive heart failure and chronic obstructive pulmonary disease acute exacerbation with asthma acute exacerbation with acute hypoxic respiratory failure, status post AIRVO, on high-flow nasal cannula. 2. Left pleural effusion, status post thoracocentesis, possibly inflammatory. 3. [id number] cor pulmonale. Leg swelling, improved. 4. Moderate pericardial effusion, mostly anterior. 5. Left lower lobe pneumonia, possibly gram-negative. RECOMMENDATIONS: Recommend to continue current medications and continue symptomatic treatment. Otherwise, fluid for cytology noted no malignancy. We will continue with bronchodilators. Follow with Pulmonary and Cardiology. Guarded prognosis because of multiple complex medical issues. Further recommendations to follow. We will continue monitoring and we will try to titrate down the oxygen requirement. MMODL / IJN: [id number] /
[2024-09-12 06:06] LABS: Glucose,Whole Blood 161 mg/dL (70-110)
[2024-09-12 07:16] LABS: Basophils # (A) 0.01 10*3/uL (0.00-0.10); Basophils % (A) 0.1 %; HCT 48.8 % (37.2-46.3); HGB 16.6 g/dL (12.0-15.0); Lymphocytes # (A) 0.18 10*3/uL (0.90-5.00); Lymphocytes % (A) 1.8 %; MCV 91.2 fL (80.0-97.0); Mean Platelet Volume 11.4 fL (9.5-12.2); Monocytes # (A) 0.59 10*3/uL (0.20-1.00); Monocytes % (A) 5.8 %; Neutrophils # (A) 9.33 10*3/uL (1.80-7.70); Neutrophils % (A) 91.7 %; Platelet Count 192 10*3/uL (140-440); RBC 5.35 10*6/uL (4.10-5.20); RDW 15.9 % (11.5-14.5); WBC 10.17 10*3/uL (4.50-10.00)
[2024-09-12 07:32] LABS: African American GFR (CKD) 77 (>60 ml/min/1.73 sqM); Anion Gap 6 mmol/L; Blood Urea Nitrogen 39 mg/dL (7-17); Calcium 8.9 mg/dL (8.4-10.2); Carbon Dioxide 38 mmol/L (22-30); Chloride 85 mmol/L (98-107); Glucose 175 mg/dL (74-99); Non-African American GFR(CKD) 67 (>60 ml/min/1.73 sqM); Potassium 3.9 mmol/L (3.5-5.1); Sodium 129 mmol/L (137-145)
--- NOTE | 2024-09-12 09:50 | XR ---
EXAMINATION TYPE: XR chest 1V portable DATE OF EXAM: 09/12/2024 9:45 AM COMPARISON: 09/06/2024 CLINICAL INDICATION: Female, 78 years old with history of shortness of breath, TECHNIQUE: XR chest 1V portable view(s) obtained. FINDINGS: The heart size is enlarged. The pulmonary vasculature is normal. Small left pleural effusion is present. Some mild adjacent atelectasis may be present. IMPRESSION: 1. Interval development of a small left pleural effusion with some mild adjacent compressive atelecta sis. [facility], , 09/12/2024 9:48 AM
[2024-09-12 12:06] LABS: Glucose,Whole Blood 96 mg/dL (70-110)
--- NOTE | 2024-09-12 13:27 | P.PN ---
Subjective Progress Note Date: 09/12/24 This is an 78-year-old female patient with no prior cardiac history but medical history significant for chronic hypoxic respiratory failure secondary to COPD and alpha 1 antitrypsin deficiency presented to the hospital with progressive exertional dyspnea associated with progressive bilateral lower extremity edema for the last few days. No symptoms of chest pain or chest discomfort but she felt she was experiencing severe congestions with no fever and no chills and no cough and no sputum production. No other cardiovascular symptoms of dizziness or lightheadedness or any feeling of heart racing or fluttering or presyncope or syncope. She developed severe bilateral lower extremities edema. When she presented to the hospital she was hypoxic requiring high flow oxygen. Normally she is on 2 L of oxygen continuously. Definitely her oxygen requirement has increased within the last few days and she has been doing pulse oximetry at home and noticed that her oxygen saturation has been low. She underwent further evaluation including EKG showing RBBB. NT proBNP came to be elevated at 5000. First set of troponin is unremarkable with chest x-ray showed finding consistent with pulmonary vascular congestions and left pleural effusion but CT scan of the chest showed no evidence of PE. Venous duplex study showed no evidence of DVT as well. The physical examination is remarkable for regular rhythm with a systolic murmur at the right and left upper sternal border with diminished breathing sounds bilaterally and bilateral rhonchi and severe bilateral lower extremities pitting edema September 01, 2024 The patient was seen and evaluated this morning. She is overall feeling better. She still have bilateral lower extremities edema. The pressure remains marginal but appears to be better today which she was started on midodrine yesterday. Am going to stop the midodrine and decrease the dose of Lasix from 40 mg IV twice daily to 20 mg IV twice daily giving the marginally low blood pressure and also giving the finding on the echo including severe pulmonary hypertension and moderate pericardial effusion without tamponade physiology. The physical examination is remarkable for bilateral lower extremities edema. The troponin came to be mildly abnormal and I would consider medical treatment in the absence of any chest pain. September 02, 2024 The patient was seen and evaluated this morning. She is still hypoxic requiring high flow oxygen she still have severe bilateral lower extremities edema. Her pressure is better and with that I am going to increase the dose of Lasix to 40 mg IV twice daily which she is hypokalemic and the potassium is in process to be replaced. The physical examination is remarkable for diminished breathing sounds bilaterally and severe bilateral lower extremities edema. September 03, 2024 The patient was seen and evaluated this morning. The bilateral lower extremities edema has somewhat improved but continues to be there. She is on Lasix IV. I would suggest continue the current dose of Lasix IV and will follow-up with the blood work from the morning which is still pending. Otherwise she remains hemodynamically stable. No symptoms of chest pain or chest discomfort. The physical examination is remarkable for moderate bilateral lower extremities pitting edema with diminished breathing sounds bilaterally. Definitely the edema has improved after we increase the dose of Lasix yesterday. 09/04/2024 Patient is seen and examined at bedside this a.m. She is sitting in the chair with a high flow nasal cannula oxygen. 2+ pitting edema bilateral lower extremity, mild crackles in lung gupta, minimal wheezing. Alert oriented, reports that symptomatically she feels better since the time for admission. Blood pressure is borderline low with SBP around 90s to 100 mmHg. 09/05/2024 Patient is seen and examined at bedside this a.m. She continues to be on high flow nasal cannula 1-2+ pitting edema bilateral extremity with mild crackles in lung gupta with minimal wheezing Alert oriented Reports symptomatically feeling better. Blood pressure and heart rates are within acceptable ranges kidney function and electrolytes are within acceptable ranges. 09/06/2024 Patient examined this morning at the bedside. She remains on Airvo. She continues to report shortness of breath. She is currently on oral Bumex. She also is complaining of her left knee hurting. Repeat limited echo reveals severe right ventricular and right atrial enlargement, dilated IVC, moderate pericardial effusion mostly anterior. Venous Doppler completed negative for DVT. Patient underwent chest CTA which was negative for pulmonary embolism. Evidence of right heart strain, pulmonary hypertension with bilateral pleural effusions, pulmonary vascular congestion, and cardiomegaly. Moderate to severe emphysema. 09/07/2024 Patient examined this morning at the bedside. She is sitting up in the chair. She continues to report shortness of breath. She denies any chest pain or pressure. She underwent left-sided thoracentesis yesterday with removal of 800 cc. Postprocedure chest x-ray revealed trace pneumothorax. Blood pressure is low in the 90s. 09/08/2024 Patient examined this morning at the bedside. Patient currently denies chest pain or pressure. She reports mild shortness of breath. She remains on IV Lasix per pulmonary medicine. Sodium today 129. Potassium 3.3. BUN 34. Creatinine 0.75. 09/09/2024 Changed from high flow nasal cannula to 12 L nasal cannula supplemental oxygen Blood pressure is borderline low Kidney function is stable with borderline low sodium and potassium Appropriate urine output Negative fluid balance of 1100 cc today last 24 hours 09/10/2024 Patient seen and examined at bedside this a.m., kidney function is stable, pot assium is 3.4 Still has mild residual lower extremity edema, on 2 L of nasal cannula supplemental oxygen. 09/11 Patient seen and examined. Blood pressure 110/65, heart rate 80. Patient states that she is feeling much better. 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 She still has a little edema to the lower extremities but she states this is much better. Blood pressure 107/73, heart rate 79, pulse ox 90% on 12 L high flow nasal cannula. Repeat blood work reveals hemoglobin 16.4. Sodium 128, BUN 39 creatinine 0.76, CO2 38. Yesterday, IV Lasix was transitioned to oral by pulmonary medicine. Patient has a negative fluid balance with documented weight loss of 7 kg. 09/12 Patient states that she is a little bit better today. She states she does not have any chest pain or chest pressure or tightness. She has a little dizzy. Edema to the lower extremities is a little better from yesterday. She has been maintained on oral Lasix and yesterday we decreased the frequency of metolazone to once daily due to drop in sodium. Today sodium is 129, potassium 3.9, BUN 39 creatinine 0.83, hemoglobin 16.6.. Blood pressure 100/70, heart rate 90, pulse ox 88% on 12 L nasal cannula. PHYSICAL EXAM: VITAL SIGNS: Reviewed. GENERAL: Well-developed in no acute distress. NECK: Supple. No JVD, no thyromegaly LUNGS: Respirations even and unlabored. mild decreased breath sounds on the left. HEART: Regular rate and rhythm. S1 and S2 heard. 2/6 systolic murmur. EXTREMITIES: No clubbing or cyanosis. Peripheral pulses intact. Minimal bilateral lower extremity edema ASSESSMENT: Shortness of breath Acute on chronic hypoxic respiratory failure Acute on chronic heart failure with preserved EF Acute Cor pulmonale Moderate pericardial effusion Severe pulmonary hypertension Left pleural effusion, status post thoracentesis with removal 800 cc, 09/06/2024 Trace pneumothorax, post thoracentesis PLAN: Continue oral Lasix 40 mg twice daily Continue metolazone 5 mg decreased frequency to once daily Continue aspirin 81 mg, Aldactone 25 mg daily Daily weights, accurate intake and output, monitoring of kidney function No medication changes made today. 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 Patient was seen and examined. Objective - Vital Signs Vital signs: Vital Signs Temp 98.1 F 09/12/24 03:55 Pulse 84 09/12/24 08:10 Resp 19 09/12/24 03:55 BP 109/73 09/12/24 03:55 Pulse Ox 89 L 09/12/24 07:44 FiO2 70 09/09/24 08:20 Intake & Output 09/11/24 09/12/24 09/12/24 18:59 06:59 18:59 Intake Total 960 Output Total 1675 Balance 960 -1675 Weight 69.1 kg Intake: Oral 960 Output: Urine 1675 Other: Voiding Method Indwelling Catheter Indwelling Catheter # Voids 1 # Bowel Movements 0 - Labs CBC & Chem 7: 09/12/24 06:12 09/12/24 06:12 Labs: Abnormal Lab Results - Last 24 Hours (Table) 09/11/24 09/11/24 09/11/24 Range/Units 11:13 16:31 20:08 WBC (4.50-10.00) 10*3/uL RBC (4.10-5.20) 10*6/uL Hgb (12.0-15.0) g/dL Hct (37.2-46.3) % Immature Gran # (0.00-0.04) 10*3/uL Neutrophils # (1.80-7.70) 10*3/uL Lymphocytes # (0.90-5.00) 10*3/uL Eosinophils # (0.04-0.35) 10*3/uL Sodium (137-145) mmol/L Chloride (98-107) mmol/L Carbon Dioxide (22-30) mmol/L BUN (7-17) mg/dL Glucose (74-99) mg/dL POC Glucose (mg/dL) 112 H 117 H 154 H (70-110) mg/dL 09/12/24 09/12/24 09/12/24 Range/Units 06:04 06:12 06:12 WBC 10.17 H (4.50-10.00) 10*3/uL RBC 5.35 H (4.10-5.20) 10*6/uL Hgb 16.6 H (12.0-15.0) g/dL Hct 48.8 H (37.2-46.3) % Immature Gran # 0.06 H (0.00-0.04) 10*3/uL Neutrophils # 9.33 H (1.80-7.70) 10*3/uL Lymphocytes # 0.18 L (0.90-5.00) 10*3/uL Eosinophils # 0.00 L (0.04-0.35) 10*3/uL Sodium 129 L (137-145) mmol/L Chloride 85 L (98-107) mmol/L Carbon Dioxide 38 H (22-30) mmol/L BUN 39 H (7-17) mg/dL Glucose 175 H (74-99) mg/dL POC Glucose (mg/dL) 161 H (70-110) mg/dL
--- NOTE | 2024-09-12 14:45 | P.PN ---
Subjective Progress Note Date: 09/12/24 Principal diagnosis: Acute on chronic hypoxic respiratory failure, multifactorial This is an 78-year-old female patient with no prior cardiac history but medical history significant for chronic hypoxic respiratory failure secondary to COPD and alpha 1 antitrypsin deficiency presented to the hospital with progressive exertional dyspnea associated with progressive bilateral lower extremity edema for the last few days. No symptoms of chest pain or chest discomfort but she felt she was experiencing severe congestions with no fever and no chills and no cough and no sputum production. No other cardiovascular symptoms of dizziness or lightheadedness or any feeling of heart racing or fluttering or presyncope or syncope. She developed severe bilateral lower extremities edema. When she presented to the hospital she was hypoxic requiring high flow oxygen. Normally she is on 2 L of oxygen continuously. Definitely her oxygen requirement has increased within the last few days and she has been doing pulse oximetry at home and noticed that her oxygen saturation has been low. She underwent further evaluation including EKG showing RBBB. NT proBNP came to be elevated at 5000. First set of troponin is unremarkable with chest x-ray showed finding consistent with pulmonary vascular congestions and left pleural effusion but CT scan of the chest showed no evidence of PE. Venous duplex study showed no evidence of DVT as well. The physical examination is remarkable for regular rhythm with a systolic murmur at the right and left upper sternal border with diminished br eathing sounds bilaterally and bilateral rhonchi and severe bilateral lower extremities pitting edema. I initially saw this patient in my office. She was hypoxic and she was in significant volume overload with extensive lower extremity edema. I directed this patient to the Emergency Department. After being in the hospital for around 3 days, the patient remained hypoxic and the patient remains on Airvo at 45 L with an FiO2 of 65%. Based on that, a pulmonary consultation was requested. I reviewed the CT of the chest that was done on this patient. The patient has extensive emphysematous changes bilaterally and the patient also has a moderate-sized left-sided pleural effusion. No airspace disease. No consolidation. No pneumonias. There is also a new moderate to small size pericardial effusion. Echocardiogram was completed on 08/31/2024 and the patient was found to have a preserved LV function with an EF of around 65% and the patient also had severe RV dilatation, reduced RV global systolic function and severe pulmonary hypertension along with moderate pericardial effusion without signs of any tamponade. The patient had severe tricuspid regurgitation. Estimated right ventricular systolic pressure was 94. For now, the patient is on Lasix 40 mg IV every 12 hours. Monitoring her fluid balance has been essentially negative and the patient has been -2.2 L over the past 24 hours. Most recent electrolytes show a sodium level of 132, potassium of 3.6, BUN 31 with a creatinine 0.7. The white cell count is at 8.8 with a hemoglobin 17.3. She is currently on Lasix 40 mg IV every 12 hours. She is also on Aldactone 25 mg p.o. daily. She remains on IV heparin. The procal citonin level was 0.08. Troponins were nonelevated. On 09/05/2024, the patient is being seen for a follow-up. The patient is calm and comfortable. The patient is currently on Airvo 45 L with an FiO2 of 65%. She remains on Bumex 1 mg p.o. twice daily and Aldactone 25 mg p.o. daily. She has been diuresing well over the past several days and the patient has been negative fluid balance of 1.1 L over the past 24 hours. No significant shortness of breath at rest. Continues to have significant amount of edema lower extremities bilaterally. The white cell count is at 8.4 with a hemoglobin 17.4 and a platelet count of 167. BUN is 30 with a creatinine of of 0.7. Sodium level is at 132 and a potassium level is at 3.5. Viral screen was negative. Chest x-ray from yesterday was consistent with COPD with chronic emphysematous changes and cardiomegaly and small left-sided pleural effusion. The patient also was noted to have a moderate-sized pericardial effusion without signs of tamponade. The patient was taken off the IV Lasix and the patient was started on Bumex in combination with Aldactone. 09/06/2024, the patient remains on Airvo 45 L with FiO2 of 50%. The fluid balance has been +125 cc over the past 24 hours. Based on that, making recommendations to start the patient on Lasix drip at 5 mg an hour. She continues to have significant amount of edema lower extremities bilaterally. Further workup was ordered by the medical group including a Doppler of lower extremity that showed no evidence of any DVT and CTA of the chest that showed no evidence of any pulmonary embolism. There was extensive bilateral severe emphysematous changes and a chronic left-sided pleural effusion. Based on that, I performed a bedside thoracentesis this patient and I drained approximately 800 cc of pleural fluid from the left lung. The patient tolerated the procedure well without any complications. The fluid will be sent for analysis. The white cell count is 8.4, hemoglobin is 17.4 and platelet count of 167. BUN is 30 with a creatinine of 0.7 and sodium is at 132 and a potassium level is at 3.5. 09/07/2024, the patient is being seen for a follow-up. The patient remains on Airvo at 45 L and FiO2 of 65%. Pulse ox is in the order of 92%. Remains dependent on high flow oxygen. She continues to diurese with Lasix drip at 5 mg an hour. She is postthoracentesis and a total of 800 cc of pleural fluid was aspirated from the left lung. The pleural fluid was a transudate. The chemi stry that showed low LDH and low protein. The white cell count was also low with a lymphocytic predominance. The patient has no specific complaints. The white cell count is at 5.6, hemoglobin is 16.6 and a platelet count is at 153. Sodium is at 130, BUN 29 with a creatinine of 0.7. K level is at 3.4. Remains on DuoNeb updrafts. Will start IV Solu-Medrol. 09/08/2024, the patient is being seen for a follow-up. Remains on Airvo 40 L and FiO2 of 65%. Currently on Lasix drip at 5 mg an hour. Also on Zaroxolyn 5 mg p.o. twice a day.. She is also on a combination of bronchodilators and IV Solu- Medrol. Unfortunately, no significant improvement in oxygenation over the past 24 hours and will continue to monitor. The white cell count of 9.5, hemoglobin is at 15.6 and a platelet count of 156. Sodium levels at 129, potassium level 3.3. BUN is 34 with a creatinine of 0.7. Procalcitonin level is at 0.08. Cortisol level is at 32. Pleural fluid aspirated from the left lung was consistent with a transudate. On 09/09/2024, the patient was taken off the Airvo and the patient was placed on 12 L of oxygen by nasal cannula. Current pulse ox is around 88%. She is calm and comfortable. Denies having any new complaints. I am not sure if the patient is having accurate input output measurement. Nevertheless, based on the fluid balance, she is +500 cc over the past 24 hours. She is off the Lasix drip and the patient is currently receiving Lasix 40 mg IV every 12 hours. She is also on Zaroxolyn 5 mg p.o. twice a day. He is also on Aldactone 25 mg p.o. daily. Doing well. Afebrile. Hemodynamically stable. Blood work from today shows a white cell count of 10.3, hemoglobin of 15 and a platelet count of 176. BUN 36 with a creatinine of 0.7. Sodium level is at 128. No other significant events otherwise for now. 09/10/2024, the patient is doing well on 12 L of oxygen by nasal cannula. Pulse ox is ranging between 88 to 92%. No specific complaints. She still diuresing with a combination of Zaroxolyn and IV Lasix. There is some residual lower extremity edema. The white cell count of 8.7 with a hemoglobin of 6.4 and a platelet count of 161. Patient also has a stable level of 127, potassium level of 3.4,, chloride 86, BUN is 40 with a creatinine of 0.6. Patient was seen today on 09/11/2024, remains on the cardiac floor, remains on 12 L high flow nasal cannula, O2 saturation is 92%. Patient has been diuresing wit different diuretics including Zaroxolyn and Lasix, does not seem to be in distress Patient had thoracentesis done by Dr. San about 5 days ago, cytology was negative for malignancy, fluid was mostly transudative in nature. WBC is 9.3 hemoglobin 16.4 electrolytes are relatively normal except of sodium 128, BUN is 39 creatinine 0.76 hemodynamically the patient is stable, clinically she feels better, breathing easier, still being followed by many consultants including cardiology, patient is responding to diuretics but nonetheless she still requiring significant amount of FiO2. Patient was seen today on 09/12/2024, patient is feeling better today, less shortness of breath, no chest pain, no chest pressure, no tightness, patient remains on diuretics, she is on oral Lasix, cardiology is handling diuretics patient had a follow-up chest x-ray with small recurrent left pleural effusion noted, some atelectasis, patient is still requiring relatively high FiO2, on 12 L nasal cannula. No plans to perform thoracentesis on this patient since the size of the fluid is #1 way too small, and patient had previous thoracentesis the fluid was transudative in nature. CT angiogram of the chest on admission showed no evidence of pulmonary embolism on this patient. Objective - Vital Signs Vital signs: Vital Signs Temp 97.5 F L 09/12/24 08:00 Pulse 84 09/12/24 11:27 Resp 20 09/12/24 08:00 BP 100/70 09/12/24 08:00 Pulse Ox 88 L 09/12/24 08:00 FiO2 70 09/09/24 08:20 Intake & Output 09/11/24 09/12/24 09/12/24 18:59 06:59 18:59 Intake Total 960 480 Output Total 1675 Balance 960 -1675 480 Weight 69.1 kg Intake: Oral 960 480 Output: Urine 1675 Other: Voiding Method Indwelling Catheter Indwelling Catheter # Voids 1 # Bowel Movements 0 - Exam GENERAL: Revealed 78-year-old female in no distress on 12 L high flow nasal cannula Head: Atraumatic normocephalic NECK: Supple. + JVD, no thyromegaly LUNGS: Diminished breath sounds at the bases no rhonchi no wheezes no crackles HEART: Distant S1-S2, no S3 gallop, 2/6 systolic murmur throughout the precordiu m Abdomen: Soft nontender No rebound Extremities no clubbing 1+ bipedal edema or cyanosis Neurologic: Alert oriented x 3 no gross focal deficit Psychiatric: Normal mood affect and no mental status examination Skin: No rashes - Labs CBC & Chem 7: 09/12/24 06:12 09/12/24 06:12 Labs: Abnormal Lab Results - Last 24 Hours (Table) 09/11/24 09/11/24 09/12/24 Range/Units 16:31 20:08 06:04 WBC (4.50-10.00) 10*3/uL RBC (4.10-5.20) 10*6/uL Hgb (12.0-15.0) g/dL Hct (37.2-46.3) % Immature Gran # (0.00-0.04) 10*3/uL Neutrophils # (1.80-7.70) 10*3/uL Lymphocytes # (0.90-5.00) 10*3/uL Eosinophils # (0.04-0.35) 10*3/uL Sodium (137-145) mmol/L Chloride (98-107) mmol/L Carbon Dioxide (22-30) mmol/L BUN (7-17) mg/dL Glucose (74-99) mg/dL POC Glucose (mg/dL) 117 H 154 H 161 H (70-110) mg/dL 09/12/24 09/12/24 Range/Units 06:12 06:12 WBC 10.17 H (4.50-10.00) 10*3/uL RBC 5.35 H (4.10-5.20) 10*6/uL Hgb 16.6 H (12.0-15.0) g/dL Hct 48.8 H (37.2-46.3) % Immature Gran # 0.06 H (0.00-0.04) 10*3/uL Neutrophils # 9.33 H (1.80-7.70) 10*3/uL Lymphocytes # 0.18 L (0.90-5.00) 10*3/uL Eosinophils # 0.00 L (0.04-0.35) 10*3/uL Sodium 129 L (137-145) mmol/L Chloride 85 L (98-107) mmol/L Carbon Dioxide 38 H (22-30) mmol/L BUN 39 H (7-17) mg/dL Glucose 175 H (74-99) mg/dL POC Glucose (mg/dL) (70-110) mg/dL Assessment and Plan Assessment: A impression: acute on chronic hypoxic respiratory failure Acute on chronic heart failure with preserved EF Chronic right-sided heart failure with severe pulmonary hypertension Acute Cor pulmonale Moderate pericardial effusion Severe pulmonary hypertension Left pleural effusion, status post thoracentesis with removal 800 cc, 09/06/2024 Trace pneumothorax, post thoracentesis History of panic attacks and generalized anxiety disorder History of gout Urinary retention requiring urology placement of Alba catheter Hyponatremia secondary to diuretics Recommendation:Continue oxygen and titrate accordingly Continue diuretics as per cardiology suggest more diuresis as the pleural effusion seems to be coming back Continue steroids/ Continue bronchodilators Prognosis remains relatively guarded patient has multiple complex comorbidities. Will continue to follow. CODE STATUS remains DNR/DNI Time with Patient: Less than 30
[2024-09-12 16:40] LABS: Glucose,Whole Blood 104 mg/dL (70-110)
--- NOTE | 2024-09-12 17:48 | PN ---
PROGRESS NOTE DATE OF SERVICE: 09/12/2024 SUBJECTIVE: This is an 78-year-old woman who was admitted with shortness of breath, COPD acute exacerbation, is still on high-flow oxygen. The most recent chest x-ray showed some small left pleural effusion. Multiple consultants are following the patient closely. OBJECTIVE: VITAL SIGNS: Pulse is 88, blood pressure is 100/70, respirations 20. CHEST: A few scattered rhonchi and crackles. ABDOMEN: Soft. NERVOUS SYSTEM: Nonfocal. LABORATORY DATA: Reviewed. Pulse ox is on 12 L. ASSESSMENT: 1. Shortness of breath secondary to congestive heart failure and chronic obstructive pulmonary disease acute exacerbation with asthma acute exacerbation with acute hypoxic respiratory failure, status post AIRVO, on high-flow nasal cannula oxygen. 2. Left pleural effusion, status post thoracocentesis, possibly inflammatory, improving. 3. Acute on chronic cor pulmonale, leg swelling, improved. 4. Moderate pericardial effusion, mostly anterior. 5. Left lower lobe pneumonia, possibly gram-negative. RECOMMENDATIONS: Recommended to continue current medications. Continue symptomatic treatment. Otherwise, repeat labs. We will closely follow with Dr. Green. Continue with diuretics and as well as steroids. Prognosis guarded. Further recommendations to follow. MMODL / IJN: [id number] /
[2024-09-12 20:35] LABS: Glucose,Whole Blood 161 mg/dL (70-110)
[2024-09-13 06:11] LABS: Glucose,Whole Blood 185 mg/dL (70-110)
[2024-09-13 06:41] LABS: Basophils # (A) 0.01 10*3/uL (0.00-0.10); Basophils % (A) 0.1 %; HCT 50.4 % (37.2-46.3); HGB 16.8 g/dL (12.0-15.0); Lymphocytes # (A) 0.15 10*3/uL (0.90-5.00); Lymphocytes % (A) 1.4 %; MCH 30.4 pg (27.0-32.0); MCHC 33.3 g/dL (32.0-37.0); MCV 91.3 fL (80.0-97.0); Mean Platelet Volume 10.4 fL (9.5-12.2); Monocytes # (A) 0.35 10*3/uL (0.20-1.00); Monocytes % (A) 3.2 %; Neutrophils # (A) 10.35 10*3/uL (1.80-7.70); Platelet Count 194 10*3/uL (140-440); RBC 5.52 10*6/uL (4.10-5.20); RDW 15.9 % (11.5-14.5); WBC 10.89 10*3/uL (4.50-10.00)
[2024-09-13 07:03] LABS: African American GFR (CKD) 80 (>60 ml/min/1.73 sqM); Anion Gap 10 mmol/L; Blood Urea Nitrogen 39 mg/dL (7-17); Calcium 9.1 mg/dL (8.4-10.2); Chloride 81 mmol/L (98-107); Glucose 163 mg/dL (74-99); Non-African American GFR(CKD) 69 (>60 ml/min/1.73 sqM); Potassium 3.4 mmol/L (3.5-5.1); Sodium 131 mmol/L (137-145)
[2024-09-13 07:29] LABS: Carbon Dioxide 40 mmol/L (22-30)
[2024-09-13] MEDS ORDERED: SPIRONOLACTONE 25 MG TAB PO SCH (09:30)
--- NOTE | 2024-09-13 09:50 | P.PN ---
Subjective Progress Note Date: 09/13/24 This is an 78-year-old female patient with no prior cardiac history but medical history significant for chronic hypoxic respiratory failure secondary to COPD and alpha 1 antitrypsin deficiency presented to the hospital with progressive exertional dyspnea associated with progressive bilateral lower extremity edema for the last few days. No symptoms of chest pain or chest discomfort but she felt she was experiencing severe congestions with no fever and no chills and no cough and no sputum production. No other cardiovascular symptoms of dizziness or lightheadedness or any feeling of heart racing or fluttering or presyncope or syncope. She developed severe bilateral lower extremities edema. When she presented to the hospital she was hypoxic requiring high flow oxygen. Normally she is on 2 L of oxygen continuously. Definitely her oxygen requirement has increased within the last few days and she has been doing pulse oximetry at home and noticed that her oxygen saturation has been low. She underwent further evaluation including EKG showing RBBB. NT proBNP came to be elevated at 5000. First set of troponin is unremarkable with chest x-ray showed finding consistent with pulmonary vascular congestions and left pleural effusion but CT scan of the chest showed no evidence of PE. Venous duplex study showed no evidence of DVT as well. The physical examination is remarkable for regular rhythm with a systolic murmur at the right and left upper sternal border with diminished breathing sounds bilaterally and bilateral rhonchi and severe bilateral lower extremities pitting edema September 01, 2024 The patient was seen and evaluated this morning. She is overall feeling better. She still have bilateral lower extremities edema. The pressure remains marginal but appears to be better today which she was started on midodrine yesterday. Am going to stop the midodrine and decrease the dose of Lasix from 40 mg IV twice daily to 20 mg IV twice daily giving the marginally low blood pressure and also giving the finding on the echo including severe pulmonary hypertension and moderate pericardial effusion without tamponade physiology. The physical examination is remarkable for bilateral lower extremities edema. The troponin came to be mildly abnormal and I would consider medical treatment in the absence of any chest pain. September 02, 2024 The patient was seen and evaluated this morning. She is still hypoxic requiring high flow oxygen she still have severe bilateral lower extremities edema. Her pressure is better and with that I am going to increase the dose of Lasix to 40 mg IV twice daily which she is hypokalemic and the potassium is in process to be replaced. The physical examination is remarkable for diminished breathing sounds bilaterally and severe bilateral lower extremities edema. September 03, 2024 The patient was seen and evaluated this morning. The bilateral lower extremities edema has somewhat improved but continues to be there. She is on Lasix IV. I would suggest continue the current dose of Lasix IV and will follow-up with the blood work from the morning which is still pending. Otherwise she remains hemodynamically stable. No symptoms of chest pain or chest discomfort. The physical examination is remarkable for moderate bilateral lower extremities pitting edema with diminished breathing sounds bilaterally. Definitely the edema has improved after we increase the dose of Lasix yesterday. 09/04/2024 Patient is seen and examined at bedside this a.m. She is sitting in the chair with a high flow nasal cannula oxygen. 2+ pitting edema bilateral lower extremity, mild crackles in lung gupta, minimal wheezing. Alert oriented, reports that symptomatically she feels better since the time for admission. Blood pressure is borderline low with SBP around 90s to 100 mmHg. 09/05/2024 Patient is seen and examined at bedside this a.m. She continues to be on high flow nasal cannula 1-2+ pitting edema bilateral extremity with mild crackles in lung gupta with minimal wheezing Alert oriented Reports symptomatically feeling better. Blood pressure and heart rates are within acceptable ranges kidney function and electrolytes are within acceptable ranges. 09/06/2024 Patient examined this morning at the bedside. She remains on Airvo. She continues to report shortness of breath. She is currently on oral Bumex. She also is complaining of her left knee hurting. Repeat limited echo reveals severe right ventricular and right atrial enlargement, dilated IVC, moderate pericardial effusion mostly anterior. Venous Doppler completed negative for DVT. Patient underwent chest CTA which was negative for pulmonary embolism. Evidence of right heart strain, pulmonary hypertension with bilateral pleural effusions, pulmonary vascular congestion, and cardiomegaly. Moderate to severe emphysema. 09/07/2024 Patient examined this morning at the bedside. She is sitting up in the chair. She continues to report shortness of breath. She denies any chest pain or pressure. She underwent left-sided thoracentesis yesterday with removal of 800 cc. Postprocedure chest x-ray revealed trace pneumothorax. Blood pressure is low in the 90s. 09/08/2024 Patient examined this morning at the bedside. Patient currently denies chest pain or pressure. She reports mild shortness of breath. She remains on IV Lasix per pulmonary medicine. Sodium today 129. Potassium 3.3. BUN 34. Creatinine 0.75. 09/09/2024 Changed from high flow nasal cannula to 12 L nasal cannula supplemental oxygen Blood pressure is borderline low Kidney function is stable with borderline low sodium and potassium Appropriate urine output Negative fluid balance of 1100 cc today last 24 hours 09/10/2024 Patient seen and examined at bedside this a.m., kidney function is stable, pot assium is 3.4 Still has mild residual lower extremity edema, on 2 L of nasal cannula supplemental oxygen. 09/11 Patient seen and examined. Blood pressure 110/65, heart rate 80. Patient states that she is feeling much better. She denies having a visual manager prior to this admission. She still has a little edema to the lower extremities but she states this is much better. Blood pressure 107/73, heart rate 79, pulse ox 90% on 12 L high flow nasal cannula. Repeat blood work reveals hemoglobin 16.4. Sodium 128, BUN 39 creatinine 0.76, CO2 38. Yesterday, IV Lasix was transitioned to oral by pulmonary medicine. Patient has a negative fluid balance with documented weight loss of 7 kg. 09/12 Patient states that she is a little bit better today. She states she does not have any chest pain or chest pressure or tightness. She has a little dizzy. Edema to the lower extremities is a little better from yesterday. She has been maintained on oral Lasix and yesterday we decreased the frequency of metolazone to once daily due to drop in sodium. Today sodium is 129, potassium 3.9, BUN 39 creatinine 0.83, hemoglobin 16.6.. Blood pressure 100/70, heart rate 90, pulse ox 88% on 12 L nasal cannula. 09/13 Patient seen and examined. No medication changes were made by us yesterday. Patient is on 12 L high flow nasal cannula with pulse ox of 89% and followed by pulmonary medicine. Blood pressure 113/76, heart rate in the 80s. Repeat blood work reveals WBC 10.8, hemoglobin 16.8, sodium 131, potassium 3.4, BUN 39 creatinine 0.81. Patient states that her breathing is okay. She slept okay last night. She denies chest pain. No cough no wheezing. She does have some nausea. She continues to have some lower extremity edema. PHYSICAL EXAM: VITAL SIGNS: Reviewed. GENERAL: Well-developed in no acute distress. NECK: Supple. No JVD, no thyromegaly LUNGS: Respirations even and unlabored. mild decreased breath sounds at the bases. HEART: Regular rate and rhythm. S1 and S2 heard. 2/6 systolic murmur. EXTREMITIES: No clubbing or cyanosis. Peripheral pulses intact. 12+ bilatera l lower extremity edema ASSESSMENT: Shortness of breath Acute on chronic hypoxic respiratory failure Acute on chronic heart failure with preserved EF Acute Cor pulmonale Moderate pericardial effusion Severe pulmonary hypertension Left pleural effusion, status post thoracentesis with removal 800 cc, 09/06/2024 Trace pneumothorax, post thoracentesis PLAN: Continue oral Lasix 40 mg twice daily Continue metolazone 5 mg decreased frequency to once daily Continue aspirin 81 mg, Aldactone 25 mg daily Daily weights, accurate intake and output, monitoring of kidney function Overall senior living prognosis is guarded Nurse practitioner note has been reviewed, I agree with documented findings and plan of care. Patient was seen and examined. Objective - Vital Signs Vital signs: Vital Signs Temp 97.5 F L 09/13/24 04:00 Pulse 80 09/13/24 08:11 Resp 20 09/13/24 04:00 BP 113/76 09/13/24 04:00 Pulse Ox 89 L 09/13/24 04:00 FiO2 70 09/09/24 08:20 Intake & Output 09/12/24 09/13/24 09/13/24 18:59 06:59 18:59 Intake Total 720 20 Output Total 700 1700 Balance 20 -1680 Weight 70.2 kg Intake: IV 20 Invasive Line 4 20 Oral 720 Output: Urine 700 1700 Other: Voiding Method Indwelling Catheter Bedside Commode # Voids 1 1 - Labs CBC & Chem 7: 09/13/24 05:47 09/13/24 05:47 Labs: Abnormal Lab Results - Last 24 Hours (Table) 09/12/24 09/13/24 09/13/24 Range/Units 20:33 05:47 05:47 WBC 10.89 H (4.50-10.00) 10*3/uL RBC 5.52 H (4.10-5.20) 10*6/uL Hgb 16.8 H (12.0-15.0) g/dL Hct 50.4 H (37.2-46.3) % Neutrophils # 10.35 H (1.80-7.70) 10*3/uL Lymphocytes # 0.15 L (0.90-5.00) 10*3/uL Eosinophils # 0.00 L (0.04-0.35) 10*3/uL Sodium 131 L (137-145) mmol/L Potassium 3.4 L (3.5-5.1) mmol/L Chloride 81 L (98-107) mmol/L Carbon Dioxide 40 H (22-30) mmol/L BUN 39 H (7-17) mg/dL Glucose 163 H (74-99) mg/dL POC Glucose (mg/dL) 161 H (70-110) mg/dL 09/13/24 Range/Units 06:10 WBC (4.50-10.00) 10*3/uL RBC (4.10-5.20) 10*6/uL Hgb (12.0-15.0) g/dL Hct (37.2-46.3) % Neutrophils # (1.80-7.70) 10*3/uL Lymphocytes # (0.90-5.00) 10*3/uL Eosinophils # (0.04-0.35) 10*3/uL Sodium (137-145) mmol/L Potassium (3.5-5.1) mmol/L Chloride (98-107) mmol/L Carbon Dioxide (22-30) mmol/L BUN (7-17) mg/dL Glucose (74-99) mg/dL POC Glucose (mg/dL) 185 H (70-110) mg/dL
[2024-09-13 11:24] LABS: Glucose,Whole Blood 179 mg/dL (70-110)
[2024-09-13] MEDS ORDERED: Potassium Replacement Protocol 1 EACH MISC MISCELLANE PRN (14:46)
[2024-09-13] MEDS ORDERED: Magnesium Replacement Protocol 1 EACH MISC MISCELLANE PRN (14:46)
--- NOTE | 2024-09-13 16:19 | P.PN ---
Subjective Progress Note Date: 09/13/24 Principal diagnosis: Acute on chronic hypoxic respiratory failure, multifactorial This is an 78-year-old female patient with no prior cardiac history but medical history significant for chronic hypoxic respiratory failure secondary to COPD and alpha 1 antitrypsin deficiency presented to the hospital with progressive exertional dyspnea associated with progressive bilateral lower extremity edema for the last few days. No symptoms of chest pain or chest discomfort but she felt she was experiencing severe congestions with no fever and no chills and no cough and no sputum production. No other cardiovascular symptoms of dizziness or lightheadedness or any feeling of heart racing or fluttering or presyncope or syncope. She developed severe bilateral lower extremities edema. When she presented to the hospital she was hypoxic requiring high flow oxygen. Normally she is on 2 L of oxygen continuously. Definitely her oxygen requirement has increased within the last few days and she has been doing pulse oximetry at home and noticed that her oxygen saturation has been low. She underwent further evaluation including EKG showing RBBB. NT proBNP came to be elevated at 5000. First set of troponin is unremarkable with chest x-ray showed finding consistent with pulmonary vascular congestions and left pleural effusion but CT scan of the chest showed no evidence of PE. Venous duplex study showed no evidence of DVT as well. The physical examination is remarkable for regular rhythm with a systolic murmur at the right and left upper sternal border with diminished br eathing sounds bilaterally and bilateral rhonchi and severe bilateral lower extremities pitting edema. I initially saw this patient in my office. She was hypoxic and she was in significant volume overload with extensive lower extremity edema. I directed this patient to the Emergency Department. After being in the hospital for around 3 days, the patient remained hypoxic and the patient remains on Airvo at 45 L with an FiO2 of 65%. Based on that, a pulmonary consultation was requested. I reviewed the CT of the chest that was done on this patient. The patient has extensive emphysematous changes bilaterally and the patient also has a moderate-sized left-sided pleural effusion. No airspace disease. No consolidation. No pneumonias. There is also a new moderate to small size pericardial effusion. Echocardiogram was completed on 08/31/2024 and the patient was found to have a preserved LV function with an EF of around 65% and the patient also had severe RV dilatation, reduced RV global systolic function and severe pulmonary hypertension along with moderate pericardial effusion without signs of any tamponade. The patient had severe tricuspid regurgitation. Estimated right ventricular systolic pressure was 94. For now, the patient is on Lasix 40 mg IV every 12 hours. Monitoring her fluid balance has been essentially negative and the patient has been -2.2 L over the past 24 hours. Most recent electrolytes show a sodium level of 132, potassium of 3.6, BUN 31 with a creatinine 0.7. The white cell count is at 8.8 with a hemoglobin 17.3. She is currently on Lasix 40 mg IV every 12 hours. She is also on Aldactone 25 mg p.o. daily. She remains on IV heparin. The procal citonin level was 0.08. Troponins were nonelevated. On 09/05/2024, the patient is being seen for a follow-up. The patient is calm and comfortable. The patient is currently on Airvo 45 L with an FiO2 of 65%. She remains on Bumex 1 mg p.o. twice daily and Aldactone 25 mg p.o. daily. She has been diuresing well over the past several days and the patient has been negative fluid balance of 1.1 L over the past 24 hours. No significant shortness of breath at rest. Continues to have significant amount of edema lower extremities bilaterally. The white cell count is at 8.4 with a hemoglobin 17.4 and a platelet count of 167. BUN is 30 with a creatinine of of 0.7. Sodium level is at 132 and a potassium level is at 3.5. Viral screen was negative. Chest x-ray from yesterday was consistent with COPD with chronic emphysematous changes and cardiomegaly and small left-sided pleural effusion. The patient also was noted to have a moderate-sized pericardial effusion without signs of tamponade. The patient was taken off the IV Lasix and the patient was started on Bumex in combination with Aldactone. 09/06/2024, the patient remains on Airvo 45 L with FiO2 of 50%. The fluid balance has been +125 cc over the past 24 hours. Based on that, making recommendations to start the patient on Lasix drip at 5 mg an hour. She continues to have significant amount of edema lower extremities bilaterally. Further workup was ordered by the medical group including a Doppler of lower extremity that showed no evidence of any DVT and CTA of the chest that showed no evidence of any pulmonary embolism. There was extensive bilateral severe emphysematous changes and a chronic left-sided pleural effusion. Based on that, I performed a bedside thoracentesis this patient and I drained approximately 800 cc of pleural fluid from the left lung. The patient tolerated the procedure well without any complications. The fluid will be sent for analysis. The white cell count is 8.4, hemoglobin is 17.4 and platelet count of 167. BUN is 30 with a creatinine of 0.7 and sodium is at 132 and a potassium level is at 3.5. 09/07/2024, the patient is being seen for a follow-up. The patient remains on Airvo at 45 L and FiO2 of 65%. Pulse ox is in the order of 92%. Remains dependent on high flow oxygen. She continues to diurese with Lasix drip at 5 mg an hour. She is postthoracentesis and a total of 800 cc of pleural fluid was aspirated from the left lung. The pleural fluid was a transudate. The chemi stry that showed low LDH and low protein. The white cell count was also low with a lymphocytic predominance. The patient has no specific complaints. The white cell count is at 5.6, hemoglobin is 16.6 and a platelet count is at 153. Sodium is at 130, BUN 29 with a creatinine of 0.7. K level is at 3.4. Remains on DuoNeb updrafts. Will start IV Solu-Medrol. 09/08/2024, the patient is being seen for a follow-up. Remains on Airvo 40 L and FiO2 of 65%. Currently on Lasix drip at 5 mg an hour. Also on Zaroxolyn 5 mg p.o. twice a day.. She is also on a combination of bronchodilators and IV Solu- Medrol. Unfortunately, no significant improvement in oxygenation over the past 24 hours and will continue to monitor. The white cell count of 9.5, hemoglobin is at 15.6 and a platelet count of 156. Sodium levels at 129, potassium level 3.3. BUN is 34 with a creatinine of 0.7. Procalcitonin level is at 0.08. Cortisol level is at 32. Pleural fluid aspirated from the left lung was consistent with a transudate. On 09/09/2024, the patient was taken off the Airvo and the patient was placed on 12 L of oxygen by nasal cannula. Current pulse ox is around 88%. She is calm and comfortable. Denies having any new complaints. I am not sure if the patient is having accurate input output measurement. Nevertheless, based on the fluid balance, she is +500 cc over the past 24 hours. She is off the Lasix drip and the patient is currently receiving Lasix 40 mg IV every 12 hours. She is also on Zaroxolyn 5 mg p.o. twice a day. He is also on Aldactone 25 mg p.o. daily. Doing well. Afebrile. Hemodynamically stable. Blood work from today shows a white cell count of 10.3, hemoglobin of 15 and a platelet count of 176. BUN 36 with a creatinine of 0.7. Sodium level is at 128. No other significant events otherwise for now. 09/10/2024, the patient is doing well on 12 L of oxygen by nasal cannula. Pulse ox is ranging between 88 to 92%. No specific complaints. She still diuresing with a combination of Zaroxolyn and IV Lasix. There is some residual lower extremity edema. The white cell count of 8.7 with a hemoglobin of 6.4 and a platelet count of 161. Patient also has a stable level of 127, potassium level of 3.4,, chloride 86, BUN is 40 with a creatinine of 0.6. Patient was seen today on 09/11/2024, remains on the cardiac floor, remains on 12 L high flow nasal cannula, O2 saturation is 92%. Patient has been diuresing wit different diuretics including Zaroxolyn and Lasix, does not seem to be in distress Patient had thoracentesis done by Dr. San about 5 days ago, cytology was negative for malignancy, fluid was mostly transudative in nature. WBC is 9.3 hemoglobin 16.4 electrolytes are relatively normal except of sodium 128, BUN is 39 creatinine 0.76 hemodynamically the patient is stable, clinically she feels better, breathing easier, still being followed by many consultants including cardiology, patient is responding to diuretics but nonetheless she still requiring significant amount of FiO2. Patient was seen today on 09/12/2024, patient is feeling better today, less shortness of breath, no chest pain, no chest pressure, no tightness, patient remains on diuretics, she is on oral Lasix, cardiology is handling diuretics patient had a follow-up chest x-ray with small recurrent left pleural effusion noted, some atelectasis, patient is still requiring relatively high FiO2, on 12 L nasal cannula. No plans to perform thoracentesis on this patient since the size of the fluid is #1 way too small, and patient had previous thoracentesis the fluid was transudative in nature. CT angiogram of the chest on admission showed no evidence of pulmonary embolism on this patient. Seen today on09/13/24, patient is clinically feeling better, however she remains on high FiO2 at 12 L, O2 sat show is marginal. Chest x-ray showed small left pleural effusion, previous CT angiogram of the chest to rule out pulmonary embolism patient remains on diuretics, she does have pulmonary hypertension, overall not much of a change in the last few days. Basically about the same. However she could not be discharged home on 12 L nasal cannula and we are continuing diuretics. Also on bronchodilators Objective - Vital Signs Vital signs: Vital Signs Temp 97.7 F 09/13/24 12:21 Pulse 84 09/13/24 15:26 Resp 20 09/13/24 14:00 BP 95/67 09/13/24 12:21 Pulse Ox 82 L 09/13/24 12:21 FiO2 70 09/09/24 08:20 Intake & Output 09/12/24 09/13/24 09/13/24 18:59 06:59 18:59 Intake Total 720 20 Output Total 700 1700 1100 Balance 20 -1680 -1100 Weight 70.2 kg Intake: IV 20 Invasive Line 4 20 Oral 720 Output: Urine 700 1700 1100 Other: Voiding Method Indwelling Catheter Bedside Commode Bedside Commode # Voids 1 1 - Exam GENERAL: Revealed 78-year-old female in no distress on 12 L high flow nasal cannula Head: Atraumatic normocephalic NECK: Supple. + JVD, no thyromegaly LUNGS: Diminished breath sounds at the bases no rhonchi no wheezes no crackles HEART: Distant S1-S2, no S3 gallop, 2/6 systolic murmur throughout the precordium Abdomen: Soft nontender No rebound Extremities no clubbing 1+ bipedal edema or cyanosis Neurologic: Alert oriented x 3 no gross focal deficit Psychiatric: Normal mood affect and no mental status examination Skin: No rashes - Labs CBC & Chem 7: 09/13/24 05:47 09/13/24 05:47 Labs: Abnormal Lab Results - Last 24 Hours (Table) 09/12/24 09/13/24 09/13/24 Range/Units 20:33 05:47 05:47 WBC 10.89 H (4.50-10.00) 10*3/uL RBC 5.52 H (4.10-5.20) 10*6/uL Hgb 16.8 H (12.0-15.0) g/dL Hct 50.4 H (37.2-46.3) % Neutrophils # 10.35 H (1.80-7.70) 10*3/uL Lymphocytes # 0.15 L (0.90-5.00) 10*3/uL Eosinophils # 0.00 L (0.04-0.35) 10*3/uL Sodium 131 L (137-145) mmol/L Potassium 3.4 L (3.5-5.1) mmol/L Chloride 81 L (98-107) mmol/L Carbon Dioxide 40 H (22-30) mmol/L BUN 39 H (7-17) mg/dL Glucose 163 H (74-99) mg/dL POC Glucose (mg/dL) 161 H (70-110) mg/dL 09/13/24 09/13/24 Range/Units 06:10 11:23 WBC (4.50-10.00) 10*3/uL RBC (4.10-5.20) 10*6/uL Hgb (12.0-15.0) g/dL Hct (37.2-46.3) % Neutrophils # (1.80-7.70) 10*3/uL Lymphocytes # (0.90-5.00) 10*3/uL Eosinophils # (0.04-0.35) 10*3/uL Sodium (137-145) mmol/L Potassium (3.5-5.1) mmol/L Chloride (98-107) mmol/L Carbon Dioxide (22-30) mmol/L BUN (7-17) mg/dL Glucose (74-99) mg/dL POC Glucose (mg/dL) 185 H 179 H (70-110) mg/dL Assessment and Plan Assessment: A impression: acute on chronic hypoxic respiratory failure Acute on chronic heart failure with preserved EF Chronic right-sided heart failure with severe pulmonary hypertension Acute Cor pulmonale Moderate pericardial effusion Severe pulmonary hypertension Left pleural effusion, status post thoracentesis with removal 800 cc, 09/06/2024 Trace pneumothorax, post thoracentesis History of panic attacks and generalized anxiety disorder History of gout Urinary retention requiring urology placement of Alba catheter Hyponatremia secondary to diuretics Recommendation:Continue oxygen and titrate accordingly Continue diuretics as per cardiology suggest more diuresis as the pleural effusion seems to be coming back Continue steroids Continue bronchodilators Prognosis remains relatively guarded patient has multiple complex comorbidities. Will continue to follow. Patient is not ready to be discharged home as she seems marginal at best. CODE STATUS remains DNR/DNI Time with Patient: Less than 30
[2024-09-13 16:52] LABS: Glucose,Whole Blood 145 mg/dL (70-110)
[2024-09-13] MEDS: POTASSIUM CHLORIDE ER 20 MEQ TAB.ER PO SCH (17:16)
[2024-09-13 19:49] LABS: Glucose,Whole Blood 134 mg/dL (70-110)
--- NOTE | 2024-09-14 03:57 | PN ---
PROGRESS NOTE DATE OF SERVICE: 09/13/2024 SUBJECTIVE: This is an 78-year-old woman, who was admitted with shortness of breath and CHF, COPD acute exacerbation, is still having significant hypoxia. No chest pain. No palpitation. OBJECTIVE: VITAL SIGNS: Pulse 82, blood pressure 95/67, pulse ox 82% on 2 L nasal cannula. HEENT: Conjunctivae normal. NECK: No JVD. CARDIOVASCULAR: S1, S2. RESPIRATIONS: Breath sounds diminished at the bases. A few scattered rhonchi. ABDOMEN: Soft. LABORATORY DATA: Reviewed. ASSESSMENT: 1. Shortness of breath secondary to congestive heart failure acute exacerbation as well as chronic obstructive pulmonary disease and asthma acute exacerbation with acute hypoxic respiratory failure, status post AIRVO, on high-flow nasal cannula. 2. Left pleural effusion, status post thoracocentesis, possibly inflammatory. 3. Acute on chronic cor pulmonale with leg swelling. 4. Moderate pericardial effusion, mostly anterior. 5. Left lower lobe pneumonia, possibly gram-negative. RECOMMENDATIONS: Recommended to continue current management and continue symptomatic treatment. Otherwise, chest x-ray was reviewed, showed overall improvement. We will continue to monitor. Closely follow with Cardiology, Pulmonology. Guarded prognosis. Further recommendations to follow. MMODL / IJN: [id number] /
[2024-09-14 06:17] LABS: Glucose,Whole Blood 133 mg/dL (70-110)
[2024-09-14 07:40] LABS: Basophils # (A) 0.03 10*3/uL (0.00-0.10); Basophils % (A) 0.2 %; HCT 53.8 % (37.2-46.3); HGB 18.2 g/dL (12.0-15.0); Lymphocytes % (A) 1.3 %; MCHC 33.8 g/dL (32.0-37.0); MCV 91.7 fL (80.0-97.0); Mean Platelet Volume 11.1 fL (9.5-12.2); Monocytes % (A) 4.6 %; Neutrophils # (A) 14.15 10*3/uL (1.80-7.70); Neutrophils % (A) 93.3 %; Platelet Count 226 10*3/uL (140-440); RBC 5.87 10*6/uL (4.10-5.20); RDW 15.7 % (11.5-14.5); WBC 15.17 10*3/uL (4.50-10.00)
[2024-09-14 07:54] LABS: African American GFR (CKD) 76 (>60 ml/min/1.73 sqM); Anion Gap 10 mmol/L; Blood Urea Nitrogen 43 mg/dL (7-17); Calcium 9.5 mg/dL (8.4-10.2); Chloride 80 mmol/L (98-107); Glucose 113 mg/dL (74-99); Magnesium 1.8 mg/dL (1.6-2.3); Non-African American GFR(CKD) 66 (>60 ml/min/1.73 sqM); Sodium 130 mmol/L (137-145)
[2024-09-14 08:09] LABS: Carbon Dioxide 40 mmol/L (22-30)
[2024-09-14 11:21] LABS: Glucose,Whole Blood 156 mg/dL (70-110)
--- NOTE | 2024-09-14 12:50 | P.PN ---
Subjective Progress Note Date: 09/14/24 This is an 78-year-old female patient with no prior cardiac history but medical history significant for chronic hypoxic respiratory failure secondary to COPD and alpha 1 antitrypsin deficiency presented to the hospital with progressive exertional dyspnea associated with progressive bilateral lower extremity edema for the last few days. No symptoms of chest pain or chest discomfort but she felt she was experiencing severe congestions with no fever and no chills and no cough and no sputum production. No other cardiovascular symptoms of dizziness or lightheadedness or any feeling of heart racing or fluttering or presyncope or syncope. She developed severe bilateral lower extremities edema. When she presented to the hospital she was hypoxic requiring high flow oxygen. Normally she is on 2 L of oxygen continuously. Definitely her oxygen requirement has increased within the last few days and she has been doing pulse oximetry at home and noticed that her oxygen saturation has been low. She underwent further evaluation including EKG showing RBBB. NT proBNP came to be elevated at 5000. First set of troponin is unremarkable with chest x-ray showed finding consistent with pulmonary vascular congestions and left pleural effusion but CT scan of the chest showed no evidence of PE. Venous duplex study showed no evidence of DVT as well. The physical examination is remarkable for regular rhythm with a systolic murmur at the right and left upper sternal border with diminished breathing sounds bilaterally and bilateral rhonchi and severe bilateral lower extremities pitting edema September 01, 2024 The patient was seen and evaluated this morning. She is overall feeling better. She still have bilateral lower extremities edema. The pressure remains marginal but appears to be better today which she was started on midodrine yesterday. Am going to stop the midodrine and decrease the dose of Lasix from 40 mg IV twice daily to 20 mg IV twice daily giving the marginally low blood pressure and also giving the finding on the echo including severe pulmonary hypertension and moderate pericardial effusion without tamponade physiology. The physical examination is remarkable for bilateral lower extremities edema. The troponin came to be mildly abnormal and I would consider medical treatment in the absence of any chest pain. September 02, 2024 The patient was seen and evaluated this morning. She is still hypoxic requiring high flow oxygen she still have severe bilateral lower extremities edema. Her pressure is better and with that I am going to increase the dose of Lasix to 40 mg IV twice daily which she is hypokalemic and the potassium is in process to be replaced. The physical examination is remarkable for diminished breathing sounds bilaterally and severe bilateral lower extremities edema. September 03, 2024 The patient was seen and evaluated this morning. The bilateral lower extremities edema has somewhat improved but continues to be there. She is on Lasix IV. I would suggest continue the current dose of Lasix IV and will follow-up with the blood work from the morning which is still pending. Otherwise she remains hemodynamically stable. No symptoms of chest pain or chest discomfort. The physical examination is remarkable for moderate bilateral lower extremities pitting edema with diminished breathing sounds bilaterally. Definitely the edema has improved after we increase the dose of Lasix yesterday. 09/04/2024 Patient is seen and examined at bedside this a.m. She is sitting in the chair with a high flow nasal cannula oxygen. 2+ pitting edema bilateral lower extremity, mild crackles in lung gupta, minimal wheezing. Alert oriented, reports that symptomatically she feels better since the time for admission. Blood pressure is borderline low with SBP around 90s to 100 mmHg. 09/05/2024 Patient is seen and examined at bedside this a.m. She continues to be on high flow nasal cannula 1-2+ pitting edema bilateral extremity with mild crackles in lung gupta with minimal wheezing Alert oriented Reports symptomatically feeling better. Blood pressure and heart rates are within acceptable ranges kidney function and electrolytes are within acceptable ranges. 09/06/2024 Patient examined this morning at the bedside. She remains on Airvo. She continues to report shortness of breath. She is currently on oral Bumex. She also is complaining of her left knee hurting. Repeat limited echo reveals severe right ventricular and right atrial enlargement, dilated IVC, moderate pericardial effusion mostly anterior. Venous Doppler completed negative for DVT. Patient underwent chest CTA which was negative for pulmonary embolism. Evidence of right heart strain, pulmonary hypertension with bilateral pleural effusions, pulmonary vascular congestion, and cardiomegaly. Moderate to severe emphysema. 09/07/2024 Patient examined this morning at the bedside. She is sitting up in the chair. She continues to report shortness of breath. She denies any chest pain or pressure. She underwent left-sided thoracentesis yesterday with removal of 800 cc. Postprocedure chest x-ray revealed trace pneumothorax. Blood pressure is low in the 90s. 09/08/2024 Patient examined this morning at the bedside. Patient currently denies chest pain or pressure. She reports mild shortness of breath. She remains on IV Lasix per pulmonary medicine. Sodium today 129. Potassium 3.3. BUN 34. Creatinine 0.75. 09/09/2024 Changed from high flow nasal cannula to 12 L nasal cannula supplemental oxygen Blood pressure is borderline low Kidney function is stable with borderline low sodium and potassium Appropriate urine output Negative fluid balance of 1100 cc today last 24 hours 09/10/2024 Patient seen and examined at bedside this a.m., kidney function is stable, pot assium is 3.4 Still has mild residual lower extremity edema, on 2 L of nasal cannula supplemental oxygen. 09/11 Patient seen and examined. Blood pressure 110/65, heart rate 80. Patient states that she is feeling much better. She denies having a digital performance analyst prior to this admission. She still has a little edema to the lower extremities but she states this is much better. Blood pressure 107/73, heart rate 79, pulse ox 90% on 12 L high flow nasal cannula. Repeat blood work reveals hemoglobin 16.4. Sodium 128, BUN 39 creatinine 0.76, CO2 38. Yesterday, IV Lasix was transitioned to oral by pulmonary medicine. Patient has a negative fluid balance with documented weight loss of 7 kg. 09/12 Patient states that she is a little bit better today. She states she does not have any chest pain or chest pressure or tightness. She has a little dizzy. Edema to the lower extremities is a little better from yesterday. She has been maintained on oral Lasix and yesterday we decreased the frequency of metolazone to once daily due to drop in sodium. Today sodium is 129, potassium 3.9, BUN 39 creatinine 0.83, hemoglobin 16.6.. Blood pressure 100/70, heart rate 90, pulse ox 88% on 12 L nasal cannula. 09/13 Patient seen and examined. No medication changes were made by us yesterday. Patient is on 12 L high flow nasal cannula with pulse ox of 89% and followed by pulmonary medicine. Blood pressure 113/76, heart rate in the 80s. Repeat blood work reveals WBC 10.8, hemoglobin 16.8, sodium 131, potassium 3.4, BUN 39 creatinine 0.81. Patient states that her breathing is okay. She slept okay last night. She denies chest pain. No cough no wheezing. She does have some nausea. She continues to have some lower extremity edema. 09/14 Patient seen and examined. Patient states that her breathing is okay. She denies chest pain. She slept okay last night. She continues to have a little lower extremity edema. Blood pressure 97/64, heart rate in the 80s and 90s, pulse ox 90% on 9 L high flow nasal cannula. Repeat blood work reveals WBC 15, hemoglobin 18, sodium 130, potassium 4, BUN 43 creatinine 0.84 and CO2 40. Patient has a negative fluid balance with documented weight loss. Telemetry sinus rhythm. No medication changes made today. PHYSICAL EXAM: VITAL SIGNS: Reviewed. GENERAL: Well-developed in no acute distress. NECK: Supple. No JVD, no thyromegaly LUNGS: Respirations even and unlabored. mild decreased breath sounds at the bases. HEART: Regular rate and rhythm. S1 and S2 heard. 2/6 systolic murmur. EXTREMITIES: No clubbing or cyanosis. Peripheral pulses intact. 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 Patient was seen and examined. Objective - Vital Signs Vital signs: Vital Signs Temp 97.5 F L 09/14/24 09:46 Pulse 87 09/14/24 11:13 Resp 18 09/14/24 09:46 BP 97/64 09/14/24 09:46 Pulse Ox 90 L 09/14/24 10:45 FiO2 70 09/09/24 08:20 Intake & Output 09/13/24 09/14/24 09/14/24 18:59 06:59 18:59 Intake Total 360 Output Total 1549 2049 Balance -1549 -2049 360 Weight 66.3 kg Intake: Oral 360 Output: Urine 1550 2050 Other: Voiding Method Bedside Commode Bedside Commode Bedside Commode # Bowel Movements 1 - Labs CBC & Chem 7: 09/14/24 06:38 09/14/24 06:38 Labs: Abnormal Lab Results - Last 24 Hours (Table) 09/13/24 09/13/24 09/13/24 Range/Units 11:23 16:50 19:48 WBC (4.50-10.00) 10*3/uL RBC (4.10-5.20) 10*6/uL Hgb (12.0-15.0) g/dL Hct (37.2-46.3) % Immature Gran # (0.00-0.04) 10*3/uL Neutrophils # (1.80-7.70) 10*3/uL Lymphocytes # (0.90-5.00) 10*3/uL Eosinophils # (0.04-0.35) 10*3/uL Sodium (137-145) mmol/L Chloride (98-107) mmol/L Carbon Dioxide (22-30) mmol/L BUN (7-17) mg/dL Glucose (74-99) mg/dL POC Glucose (mg/dL) 179 H 145 H 134 H (70-110) mg/dL 09/14/24 09/14/24 09/14/24 Range/Units 06:15 06:38 06:38 WBC 15.17 H (4.50-10.00) 10*3/uL RBC 5.87 H (4.10-5.20) 10*6/uL Hgb 18.2 H (12.0-15.0) g/dL Hct 53.8 H (37.2-46.3) % Immature Gran # 0.09 H (0.00-0.04) 10*3/uL Neutrophils # 14.15 H (1.80-7.70) 10*3/uL Lymphocytes # 0.20 L (0.90-5.00) 10*3/uL Eosinophils # 0.00 L (0.04-0.35) 10*3/uL Sodium 130 L (137-145) mmol/L Chloride 80 L (98-107) mmol/L Carbon Dioxide 40 H (22-30) mmol/L BUN 43 H (7-17) mg/dL Glucose 113 H (74-99) mg/dL POC Glucose (mg/dL) 133 H (70-110) mg/dL
[2024-09-14 13:03] VITALS: BMI 25.9
--- NOTE | 2024-09-14 13:24 | P.PN ---
Subjective Progress Note Date: 09/14/24 Principal diagnosis: Acute on chronic hypoxic respiratory failure, multifactorial This is an 78-year-old female patient with no prior cardiac history but medical history significant for chronic hypoxic respiratory failure secondary to COPD and alpha 1 antitrypsin deficiency presented to the hospital with progressive exertional dyspnea associated with progressive bilateral lower extremity edema for the last few days. No symptoms of chest pain or chest discomfort but she felt she was experiencing severe congestions with no fever and no chills and no cough and no sputum production. No other cardiovascular symptoms of dizziness or lightheadedness or any feeling of heart racing or fluttering or presyncope or syncope. She developed severe bilateral lower extremities edema. When she presented to the hospital she was hypoxic requiring high flow oxygen. Normally she is on 2 L of oxygen continuously. Definitely her oxygen requirement has increased within the last few days and she has been doing pulse oximetry at home and noticed that her oxygen saturation has been low. She underwent further evaluation including EKG showing RBBB. NT proBNP came to be elevated at 5000. First set of troponin is unremarkable with chest x-ray showed finding consistent with pulmonary vascular congestions and left pleural effusion but CT scan of the chest showed no evidence of PE. Venous duplex study showed no evidence of DVT as well. The physical examination is remarkable for regular rhythm with a systolic murmur at the right and left upper sternal border with diminished br eathing sounds bilaterally and bilateral rhonchi and severe bilateral lower extremities pitting edema. I initially saw this patient in my office. She was hypoxic and she was in significant volume overload with extensive lower extremity edema. I directed this patient to the Emergency Department. After being in the hospital for around 3 days, the patient remained hypoxic and the patient remains on Airvo at 45 L with an FiO2 of 65%. Based on that, a pulmonary consultation was requested. I reviewed the CT of the chest that was done on this patient. The patient has extensive emphysematous changes bilaterally and the patient also has a moderate-sized left-sided pleural effusion. No airspace disease. No consolidation. No pneumonias. There is also a new moderate to small size pericardial effusion. Echocardiogram was completed on 08/31/2024 and the patient was found to have a preserved LV function with an EF of around 65% and the patient also had severe RV dilatation, reduced RV global systolic function and severe pulmonary hypertension along with moderate pericardial effusion without signs of any tamponade. The patient had severe tricuspid regurgitation. Estimated right ventricular systolic pressure was 94. For now, the patient is on Lasix 40 mg IV every 12 hours. Monitoring her fluid balance has been essentially negative and the patient has been -2.2 L over the past 24 hours. Most recent electrolytes show a sodium level of 132, potassium of 3.6, BUN 31 with a creatinine 0.7. The white cell count is at 8.8 with a hemoglobin 17.3. She is currently on Lasix 40 mg IV every 12 hours. She is also on Aldactone 25 mg p.o. daily. She remains on IV heparin. The procal citonin level was 0.08. Troponins were nonelevated. On 09/05/2024, the patient is being seen for a follow-up. The patient is calm and comfortable. The patient is currently on Airvo 45 L with an FiO2 of 65%. She remains on Bumex 1 mg p.o. twice daily and Aldactone 25 mg p.o. daily. She has been diuresing well over the past several days and the patient has been negative fluid balance of 1.1 L over the past 24 hours. No significant shortness of breath at rest. Continues to have significant amount of edema lower extremities bilaterally. The white cell count is at 8.4 with a hemoglobin 17.4 and a platelet count of 167. BUN is 30 with a creatinine of of 0.7. Sodium level is at 132 and a potassium level is at 3.5. Viral screen was negative. Chest x-ray from yesterday was consistent with COPD with chronic emphysematous changes and cardiomegaly and small left-sided pleural effusion. The patient also was noted to have a moderate-sized pericardial effusion without signs of tamponade. The patient was taken off the IV Lasix and the patient was started on Bumex in combination with Aldactone. 09/06/2024, the patient remains on Airvo 45 L with FiO2 of 50%. The fluid balance has been +125 cc over the past 24 hours. Based on that, making recommendations to start the patient on Lasix drip at 5 mg an hour. She continues to have significant amount of edema lower extremities bilaterally. Further workup was ordered by the medical group including a Doppler of lower extremity that showed no evidence of any DVT and CTA of the chest that showed no evidence of any pulmonary embolism. There was extensive bilateral severe emphysematous changes and a chronic left-sided pleural effusion. Based on that, I performed a bedside thoracentesis this patient and I drained approximately 800 cc of pleural fluid from the left lung. The patient tolerated the procedure well without any complications. The fluid will be sent for analysis. The white cell count is 8.4, hemoglobin is 17.4 and platelet count of 167. BUN is 30 with a creatinine of 0.7 and sodium is at 132 and a potassium level is at 3.5. 09/07/2024, the patient is being seen for a follow-up. The patient remains on Airvo at 45 L and FiO2 of 65%. Pulse ox is in the order of 92%. Remains dependent on high flow oxygen. She continues to diurese with Lasix drip at 5 mg an hour. She is postthoracentesis and a total of 800 cc of pleural fluid was aspirated from the left lung. The pleural fluid was a transudate. The chemi stry that showed low LDH and low protein. The white cell count was also low with a lymphocytic predominance. The patient has no specific complaints. The white cell count is at 5.6, hemoglobin is 16.6 and a platelet count is at 153. Sodium is at 130, BUN 29 with a creatinine of 0.7. K level is at 3.4. Remains on DuoNeb updrafts. Will start IV Solu-Medrol. 09/08/2024, the patient is being seen for a follow-up. Remains on Airvo 40 L and FiO2 of 65%. Currently on Lasix drip at 5 mg an hour. Also on Zaroxolyn 5 mg p.o. twice a day.. She is also on a combination of bronchodilators and IV Solu- Medrol. Unfortunately, no significant improvement in oxygenation over the past 24 hours and will continue to monitor. The white cell count of 9.5, hemoglobin is at 15.6 and a platelet count of 156. Sodium levels at 129, potassium level 3.3. BUN is 34 with a creatinine of 0.7. Procalcitonin level is at 0.08. Cortisol level is at 32. Pleural fluid aspirated from the left lung was consistent with a transudate. On 09/09/2024, the patient was taken off the Airvo and the patient was placed on 12 L of oxygen by nasal cannula. Current pulse ox is around 88%. She is calm and comfortable. Denies having any new complaints. I am not sure if the patient is having accurate input output measurement. Nevertheless, based on the fluid balance, she is +500 cc over the past 24 hours. She is off the Lasix drip and the patient is currently receiving Lasix 40 mg IV every 12 hours. She is also on Zaroxolyn 5 mg p.o. twice a day. He is also on Aldactone 25 mg p.o. daily. Doing well. Afebrile. Hemodynamically stable. Blood work from today shows a white cell count of 10.3, hemoglobin of 15 and a platelet count of 176. BUN 36 with a creatinine of 0.7. Sodium level is at 128. No other significant events otherwise for now. 09/10/2024, the patient is doing well on 12 L of oxygen by nasal cannula. Pulse ox is ranging between 88 to 92%. No specific complaints. She still diuresing with a combination of Zaroxolyn and IV Lasix. There is some residual lower extremity edema. The white cell count of 8.7 with a hemoglobin of 6.4 and a platelet count of 161. Patient also has a stable level of 127, potassium level of 3.4,, chloride 86, BUN is 40 with a creatinine of 0.6. Patient was seen today on 09/11/2024, remains on the cardiac floor, remains on 12 L high flow nasal cannula, O2 saturation is 92%. Patient has been diuresing wit different diuretics including Zaroxolyn and Lasix, does not seem to be in distress Patient had thoracentesis done by Dr. San about 5 days ago, cytology was negative for malignancy, fluid was mostly transudative in nature. WBC is 9.3 hemoglobin 16.4 electrolytes are relatively normal except of sodium 128, BUN is 39 creatinine 0.76 hemodynamically the patient is stable, clinically she feels better, breathing easier, still being followed by many consultants including cardiology, patient is responding to diuretics but nonetheless she still requiring significant amount of FiO2. Patient was seen today on 09/12/2024, patient is feeling better today, less shortness of breath, no chest pain, no chest pressure, no tightness, patient remains on diuretics, she is on oral Lasix, cardiology is handling diuretics patient had a follow-up chest x-ray with small recurrent left pleural effusion noted, some atelectasis, patient is still requiring relatively high FiO2, on 12 L nasal cannula. No plans to perform thoracentesis on this patient since the size of the fluid is #1 way too small, and patient had previous thoracentesis the fluid was transudative in nature. CT angiogram of the chest on admission showed no evidence of pulmonary embolism on this patient. Seen today on09/13/24, patient is clinically feeling better, however she remains on high FiO2 at 12 L, O2 sat show is marginal. Chest x-ray showed small left pleural effusion, previous CT angiogram of the chest to rule out pulmonary embolism patient remains on diuretics, she does have pulmonary hypertension, overall not much of a change in the last few days. Basically about the same. However she could not be discharged home on 12 L nasal cannula and we are continuing diuretics. Also on bronchodilators Patient was seen today , clinically improving but her FiO2 requirement remains high on 12 L high flow nasal cannula titrated down to 9 L and maintain her O2 saturation in the low 90s. Patient has very minimal small left pleural effusion to explain her profound hypoxia, hence today I recommended a CT angiogram on this patient. And this is pending. My index of suspicion for pulmonary embolism is rather low but considering her ongoing hypoxia it is best to be safe and address that accordingly. She did have CT angiogram on her initial presentation and that was negative for PE. WBC count 15.17 hemoglobin is 18.2 electrolytes are normal renal profile is relatively normal bicarb is 40. Objective - Vital Signs Vital signs: Vital Signs Temp 97.7 F 09/14/24 11:45 Pulse 88 09/14/24 12:00 Resp 18 09/14/24 09:46 BP 99/66 09/14/24 11:45 Pulse Ox 87 L 09/14/24 12:00 FiO2 70 09/09/24 08:20 Intake & Output 09/13/24 09/14/24 09/14/24 18:59 06:59 18:59 Intake Total 360 Output Total 1549 2049 800 Balance -1549 -2049 -440 Weight 66.3 kg 66.3 kg Intake: Oral 360 Output: Urine 1549 2049 800 Other: Voiding Method Bedside Commode Bedside Commode Bedside Commode # Bowel Movements 1 0 - Exam GENERAL: Revealed 78-year-old female in no distress on 12 L high flow nasal cannula, titrated down to 9 L while I was at bedside. Head: Atraumatic normocephalic NECK: Supple. + JVD, no thyromegaly LUNGS: Diminished breath sounds at the bases no rhonchi no wheezes no crackles HEART: Distant S1-S2, no S3 gallop, 2/6 systolic murmur throughout the precordium Abdomen: Soft nontender No rebound Extremities no clubbing 1+ bipedal edema or cyanosis Neurologic: Alert oriented x 3 no gross focal deficit Psychiatric: Normal mood affect and no mental status examination Skin: No rashes - Labs CBC & Chem 7: 09/14/24 06:38 09/14/24 06:38 Labs: Abnormal Lab Results - Last 24 Hours (Table) 09/13/24 09/13/24 09/14/24 Range/Units 16:50 19:48 06:15 WBC (4.50-10.00) 10*3/uL RBC (4.10-5.20) 10*6/uL Hgb (12.0-15.0) g/dL Hct (37.2-46.3) % Immature Gran # (0.00-0.04) 10*3/uL Neutrophils # (1.80-7.70) 10*3/uL Lymphocytes # (0.90-5.00) 10*3/uL Eosinophils # (0.04-0.35) 10*3/uL Sodium (137-145) mmol/L Chloride (98-107) mmol/L Carbon Dioxide (22-30) mmol/L BUN (7-17) mg/dL Glucose (74-99) mg/dL POC Glucose (mg/dL) 145 H 134 H 133 H (70-110) mg/dL 09/14/24 09/14/24 09/14/24 Range/Units 06:38 06:38 11:19 WBC 15.17 H (4.50-10.00) 10*3/uL RBC 5.87 H (4.10-5.20) 10*6/uL Hgb 18.2 H (12.0-15.0) g/dL Hct 53.8 H (37.2-46.3) % Immature Gran # 0.09 H (0.00-0.04) 10*3/uL Neutrophils # 14.15 H (1.80-7.70) 10*3/uL Lymphocytes # 0.20 L (0.90-5.00) 10*3/uL Eosinophils # 0.00 L (0.04-0.35) 10*3/uL Sodium 130 L (137-145) mmol/L Chloride 80 L (98-107) mmol/L Carbon Dioxide 40 H (22-30) mmol/L BUN 43 H (7-17) mg/dL Glucose 113 H (74-99) mg/dL POC Glucose (mg/dL) 156 H (70-110) mg/dL Assessment and Plan Assessment: A impression: acute on chronic hypoxic respiratory failure Acute on chronic heart failure with preserved EF Chronic right-sided heart failure with severe pulmonary hypertension Acute Cor pulmonale Moderate pericardial effusion Severe pulmonary hypertension Left pleural effusion, status post thoracentesis with removal 800 cc, 09/06/2024 Trace pneumothorax, post thoracentesis History of panic attacks and generalized anxiety disorder History of gout Urinary retention requiring urology placement of Alba catheter Hyponatremia secondary to diuretics Recommendation: Continue oxygen titration keep O2 sat above 88% Continue diuretics CT angiogram of the chest was ordered, although my index of suspicion for pulmonary embolism is rather low Continue steroids Continue bronchodilators Prognosis is guarded considering her multiple complex issues Will continue to follow. Patient is not ready to be discharged home CODE STATUS remains DNR/DNI Time with Patient: Less than 30
--- NOTE | 2024-09-14 14:10 | CT ---
EXAMINATION TYPE: CT angio chest DATE OF EXAM: 09/14/2024 COMPARISON: CTA chest 9 days earlier CLINICAL INDICATION: Female, 78 years old with history of Still hypoxemic 12 L, Hypoxemic., TECHNIQUE: CTA scan of the thorax is performed with IV Contrast, patient injected with 80 ml mL of Isovue 370, p ulmonary embolism protocol. MIP Images are created on CT scanner and reviewed. CT DLP: 279 mGycm. Automated Exposure Control for Dose Reduction was Utilized. FINDINGS: LUNGS: At least moderate underlying emphysematous changes redemonstrated. There is persistent small l eft pleural effusion improved from prior study. There is associated left lower lung compressive atele ctasis. There is resolved right-sided effusion. Right lung currently clear. HEART: Persistent cardiomegaly. Persistent at least moderate coronary artery calcification. There is moderate to severe right atrial and right ventricular dilatation MEDIASTINUM: There is satisfactory enhancement of the pulmonary artery and its branches, there is no CT evidence for pulmonary embolism. Prominent pulmonary arteries redemonstrated. 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 There is small to moderate sized pericardial effusion which is stable. There is reflux of contrast into the IVC and hepatic veins whi ch are dilated. OTHER: Moderate diffuse subcutaneous edema remains present less prominent versus prior. IMPRESSION: 1. No CT evidence for acute pulmonary embolism. 2. Persistent but improved subcutaneous edema greatest distally. Resolved small right pleural effusio n. Persistent but improved small to moderate size left pleural effusion. 3. Moderate to advanced underlying emphysematous change redemonstrated. No suspicious new acute pulmo nary process 4. There is cardiomegaly with stable small to moderate-sized pericardial effusion. There is evidence of underlying pulmonary artery hypertension along with evidence of right heart failure noted. Correla te clinically. [facility], , 09/14/2024 2:08 PM
--- NOTE | 2024-09-14 15:54 | P.PN ---
Subjective Patient is admitted for multifactorial respiratory failure secondary to CHF COPD with acute exacerbation still having hypoxia patient is on 10 L of oxygen patient has diminished air entry into bilateral lung gupta patient has alpha-1 antitrypsin deficiency leading to severe emphysema usually uses oxygen but patient is on high amount of oxygen at this time patient also has chronic right- sided heart failure with severe pulmonary hypertension and cor pulmonale. Patient had a CT of the chest as we are unable to wean her off oxygen CT did not show any pulmonary embolism but did show some pericardial effusion. REVIEW OF SYSTEMS: All other systems are negative except those mentioned in the HPI PHYSICAL EXAMINATION: GENERAL: The patient is alert and oriented x3, not in any acute distress. Thin built cachectic female HEENT: Pupils are round and equally reacting to light. EOMI. No scleral icterus. No conjunctival pallor. Normocephalic, atraumatic. No pharyngeal erythema. No thyromegaly. CARDIOVASCULAR: S1 and S2 present. No murmurs, rubs, or gallops. PULMONARY: Decreased air entry to bilateral lung gupta ABDOMEN: Soft, nontender, nondistended, normoactive bowel sounds. No palpable organomegaly. MUSCULOSKELETAL: No joint swelling or deformity. EXTREMITIES: No cyanosis, clubbing, or pedal edema. NEUROLOGICAL: Gross neurological examination did not reveal any focal deficits. SKIN: No rashes. Assessment and plan -Acute on chronic hypoxic and hypercapnic respiratory failure secondary to COPD exacerbation right-sided heart failure pulmonary hypertension continue with respiratory support diuretics were changed to oral patient hyponatremia is improving Hyponatremia secondary to excessive diuresis - Acute cor pulmonale - Congestive heart failure with preserved ejection fraction or diastolic dysfunction - Severe pulmonary hypertension - Trace pneumothorax with status post thoracentesis - Mild to moderate pericardial effusion - Urinary retention patient has a Alba catheter in place DVT prophylaxis: Patient will be started on low-dose Lovenox Objective - Vital Signs Vital signs: Vital Signs Temp 97.7 F 09/14/24 11:45 Pulse 93 09/14/24 15:31 Resp 18 09/14/24 14:00 BP 99/66 09/14/24 11:45 Pulse Ox 87 L 09/14/24 12:00 FiO2 70 09/09/24 08:20 Intake & Output 09/13/24 09/14/24 09/14/24 18:59 06:59 18:59 Intake Total 360 Output Total 1550 2050 1600 Balance -1550 -2049 -1240 Weight 66.3 kg 66.3 kg Intake: Oral 360 Output: Urine 1549 2049 1599 Other: Voiding Method Bedside Commode Bedside Commode Bedside Commode # Bowel Movements 1 1 - Labs CBC & Chem 7: 09/14/24 06:38 09/14/24 06:38 Labs: Abnormal Lab Results - Last 24 Hours (Table) 09/13/24 09/13/24 09/14/24 Range/Units 16:50 19:48 06:15 WBC (4.50-10.00) 10*3/uL RBC (4.10-5.20) 10*6/uL Hgb (12.0-15.0) g/dL Hct (37.2-46.3) % Immature Gran # (0.00-0.04) 10*3/uL Neutrophils # (1.80-7.70) 10*3/uL Lymphocytes # (0.90-5.00) 10*3/uL Eosinophils # (0.04-0.35) 10*3/uL Sodium (137-145) mmol/L Chloride (98-107) mmol/L Carbon Dioxide (22-30) mmol/L BUN (7-17) mg/dL Glucose (74-99) mg/dL POC Glucose (mg/dL) 145 H 134 H 133 H (70-110) mg/dL 09/14/24 09/14/24 09/14/24 Range/Units 06:38 06:38 11:19 WBC 15.17 H (4.50-10.00) 10*3/uL RBC 5.87 H (4.10-5.20) 10*6/uL Hgb 18.2 H (12.0-15.0) g/dL Hct 53.8 H (37.2-46.3) % Immature Gran # 0.09 H (0.00-0.04) 10*3/uL Neutrophils # 14.15 H (1.80-7.70) 10*3/uL Lymphocytes # 0.20 L (0.90-5.00) 10*3/uL Eosinophils # 0.00 L (0.04-0.35) 10*3/uL Sodium 130 L (137-145) mmol/L Chloride 80 L (98-107) mmol/L Carbon Dioxide 40 H (22-30) mmol/L BUN 43 H (7-17) mg/dL Glucose 113 H (74-99) mg/dL POC Glucose (mg/dL) 156 H (70-110) mg/dL
[2024-09-14 16:34] LABS: Glucose,Whole Blood 160 mg/dL (70-110)
[2024-09-14] MEDS: ENOXAPARIN 40 MG/0.4 ML SYRINGE SQ SCH (17:55)
[2024-09-14 20:01] LABS: Glucose,Whole Blood 137 mg/dL (70-110)
[2024-09-15 06:04] LABS: Glucose,Whole Blood 134 mg/dL (70-110)
[2024-09-15 06:28] LABS: African American GFR (CKD) >90 (>60 ml/min/1.73 sqM); Blood Urea Nitrogen 40 mg/dL (7-17); Calcium 9.1 mg/dL (8.4-10.2); Chloride 77 mmol/L (98-107); Glucose 107 mg/dL (74-99); Non-African American GFR(CKD) 78 (>60 ml/min/1.73 sqM); Potassium 3.4 mmol/L (3.5-5.1); Sodium 128 mmol/L (137-145)
[2024-09-15 06:33] LABS: NT-Pro-B-Type Natriuretic Pept 18000 pg/mL
[2024-09-15 06:34] LABS: Anion Gap 6 mmol/L
[2024-09-15 07:08] LABS: Carbon Dioxide 45 mmol/L (22-30)
[2024-09-15] MEDS: SPIRONOLACTONE 25 MG TAB PO STA (09:52)
[2024-09-15] MEDS: FUROSEMIDE 10 MG/ML 4 ML VIAL IV STA (09:55)
[2024-09-15] MEDS: POTASSIUM CHLORIDE ER 20 MEQ TAB.ER PO STA (09:56)
[2024-09-15] MEDS: DAPAGLIFLOZIN PROPANEDIOL 10 MG TABLET PO SCH (09:56)
[2024-09-15 11:25] LABS: Glucose,Whole Blood 109 mg/dL (70-110)
--- NOTE | 2024-09-15 11:37 | P.PN ---
Subjective Progress Note Date: 09/05/24 Principal diagnosis: Onychomycosis Patient was seen at bedside after review of patient's chart history and physical. Patient is complaining of elongated thickened nails of bilateral feet. Patient is unable to reduce these due to patient's systemic disease and thickness of the nails. Objective - Vital Signs Vital signs: Vital Signs Temp 97.7 F 09/15/24 07:50 Pulse 86 09/15/24 08:53 Resp 18 09/15/24 08:00 BP 108/70 09/15/24 07:50 Pulse Ox 89 L 09/15/24 08:33 FiO2 70 09/09/24 08:20 Intake & Output 09/14/24 09/15/24 09/15/24 18:59 06:59 18:59 Intake Total 470 237 Output Total 1600 1450 800 Balance -1130 -1213 -800 Weight 66.3 kg 65.3 kg Intake: Oral 470 237 Output: Urine 1600 1450 800 Other: Voiding Method Bedside Commode Bedside Commode Bedside Commode # Voids 1 # Bowel Movements 1 - Cardiovascular Details: Patient has nonpalpable pedal pulses bilateral dorsalis pedis pulse 0/4 bilateral posterior tibial pulse 0/4 bilateral no digital hair x 10 extremities are cool to cool bilateral there is atrophy of the dermis bilateral - Integumentary Integumentary Comment(s): Patient has elongated thickened dystrophic painful mycotic nails with white- yellow subungual debris of the geographic pattern causing onycholysis dystrophy and 10 affecting the right hallux right second digit right third digit right fourth digit left hallux left fifth digit there is dystrophic changes with thickening of the nails without mycosis of the left second third and fourth digit - Neurologic Neurologic Comment(s): All epicritic and palliative sensations are intact and symmetrical bilateral deep tendon reflexes normal and symmetric bilateral - Musculoskeletal Musculoskeletal Comment(s): All inverters everters plantarflex dorsiflexors grossly intact symmetric b ilateral range of motion ankle joint subtalar joint midtarsal joint metatarsophalangeal joint grossly normal symmetric bilateral global hammertoes 1 through 5 bilateral - Labs CBC & Chem 7: 09/14/24 06:38 09/15/24 05:18 Labs: Abnormal Lab Results - Last 24 Hours (Table) 09/14/24 09/14/24 09/15/24 Range/Units 16:31 19:59 05:18 Sodium 128 L (137-145) mmol/L Potassium 3.4 L (3.5-5.1) mmol/L Chloride 77 L (98-107) mmol/L Carbon Dioxide 45 H* (22-30) mmol/L BUN 40 H (7-17) mg/dL Glucose 107 H (74-99) mg/dL POC Glucose (mg/dL) 160 H 137 H (70-110) mg/dL 09/15/24 Range/Units 06:02 Sodium (137-145) mmol/L Potassium (3.5-5.1) mmol/L Chloride (98-107) mmol/L Carbon Dioxide (22-30) mmol/L BUN (7-17) mg/dL Glucose (74-99) mg/dL POC Glucose (mg/dL) 134 H (70-110) mg/dL Assessment and Plan Assessment: Onychomycosis of the right hallux right second digit right third digit right fourth digit left hallux left fifth digit with dystrophic nails of the left second and left third left fourth digit Peripheral vascular disease Plan: Exam discussed patient findings and treatment. Due to patient's systemic condition and current peripheral arterial status patient would benefit from debridement of these nails. The nails were debrided manually of all mycotic and dystrophic changes x 10. We discussed with patient etiology prognosis risk expectations and treatment of mycotic and dystrophic nails. Patient would benefit from continued podiatric care upon discharge. Patient understood same and will follow-up with podiatric recommendations.
[2024-09-15] MEDS: CALCIUM CARBONATE 500 MG CHEWABLE PO PRN (13:25)
--- NOTE | 2024-09-15 14:08 | P.PN ---
Subjective Progress Note Date: 09/15/24 This is an 78-year-old female patient with no prior cardiac history but medical history significant for chronic hypoxic respiratory failure secondary to COPD and alpha 1 antitrypsin deficiency presented to the hospital with progressive exertional dyspnea associated with progressive bilateral lower extremity edema for the last few days. No symptoms of chest pain or chest discomfort but she felt she was experiencing severe congestions with no fever and no chills and no cough and no sputum production. No other cardiovascular symptoms of dizziness or lightheadedness or any feeling of heart racing or fluttering or presyncope or syncope. She developed severe bilateral lower extremities edema. When she presented to the hospital she was hypoxic requiring high flow oxygen. Normally she is on 2 L of oxygen continuously. Definitely her oxygen requirement has increased within the last few days and she has been doing pulse oximetry at home and noticed that her oxygen saturation has been low. She underwent further evaluation including EKG showing RBBB. NT proBNP came to be elevated at 5000. First set of troponin is unremarkable with chest x-ray showed finding consistent with pulmonary vascular congestions and left pleural effusion but CT scan of the chest showed no evidence of PE. Venous duplex study showed no evidence of DVT as well. The physical examination is remarkable for regular rhythm with a systolic murmur at the right and left upper sternal border with diminished breathing sounds bilaterally and bilateral rhonchi and severe bilateral lower extremities pitting edema September 01, 2024 The patient was seen and evaluated this morning. She is overall feeling better. She still have bilateral lower extremities edema. The pressure remains marginal but appears to be better today which she was started on midodrine yesterday. Am going to stop the midodrine and decrease the dose of Lasix from 40 mg IV twice daily to 20 mg IV twice daily giving the marginally low blood pressure and also giving the finding on the echo including severe pulmonary hypertension and moderate pericardial effusion without tamponade physiology. The physical examination is remarkable for bilateral lower extremities edema. The troponin came to be mildly abnormal and I would consider medical treatment in the absence of any chest pain. September 02, 2024 The patient was seen and evaluated this morning. She is still hypoxic requiring high flow oxygen she still have severe bilateral lower extremities edema. Her pressure is better and with that I am going to increase the dose of Lasix to 40 mg IV twice daily which she is hypokalemic and the potassium is in process to be replaced. The physical examination is remarkable for diminished breathing sounds bilaterally and severe bilateral lower extremities edema. September 03, 2024 The patient was seen and evaluated this morning. The bilateral lower extremities edema has somewhat improved but continues to be there. She is on Lasix IV. I would suggest continue the current dose of Lasix IV and will follow-up with the blood work from the morning which is still pending. Otherwise she remains hemodynamically stable. No symptoms of chest pain or chest discomfort. The physical examination is remarkable for moderate bilateral lower extremities pitting edema with diminished breathing sounds bilaterally. Definitely the edema has improved after we increase the dose of Lasix yesterday. 09/04/2024 Patient is seen and examined at bedside this a.m. She is sitting in the chair with a high flow nasal cannula oxygen. 2+ pitting edema bilateral lower extremity, mild crackles in lung gupta, minimal wheezing. Alert oriented, reports that symptomatically she feels better since the time for admission. Blood pressure is borderline low with SBP around 90s to 100 mmHg. 09/05/2024 Patient is seen and examined at bedside this a.m. She continues to be on high flow nasal cannula 1-2+ pitting edema bilateral extremity with mild crackles in lung gupta with minimal wheezing Alert oriented Reports symptomatically feeling better. Blood pressure and heart rates are within acceptable ranges kidney function and electrolytes are within acceptable ranges. 09/06/2024 Patient examined this morning at the bedside. She remains on Airvo. She continues to report shortness of breath. She is currently on oral Bumex. She also is complaining of her left knee hurting. Repeat limited echo reveals severe right ventricular and right atrial enlargement, dilated IVC, moderate pericardial effusion mostly anterior. Venous Doppler completed negative for DVT. Patient underwent chest CTA which was negative for pulmonary embolism. Evidence of right heart strain, pulmonary hypertension with bilateral pleural effusions, pulmonary vascular congestion, and cardiomegaly. Moderate to severe emphysema. 09/07/2024 Patient examined this morning at the bedside. She is sitting up in the chair. She continues to report shortness of breath. She denies any chest pain or pressure. She underwent left-sided thoracentesis yesterday with removal of 800 cc. Postprocedure chest x-ray revealed trace pneumothorax. Blood pressure is low in the 90s. 09/08/2024 Patient examined this morning at the bedside. Patient currently denies chest pain or pressure. She reports mild shortness of breath. She remains on IV Lasix per pulmonary medicine. Sodium today 129. Potassium 3.3. BUN 34. Creatinine 0.75. 09/09/2024 Changed from high flow nasal cannula to 12 L nasal cannula supplemental oxygen Blood pressure is borderline low Kidney function is stable with borderline low sodium and potassium Appropriate urine output Negative fluid balance of 1100 cc today last 24 hours 09/10/2024 Patient seen and examined at bedside this a.m., kidney function is stable, pot assium is 3.4 Still has mild residual lower extremity edema, on 2 L of nasal cannula supplemental oxygen. 09/11 Patient seen and examined. Blood pressure 110/65, heart rate 80. Patient states that she is feeling much better. She denies having a online merchant prior to this admission. She still has a little edema to the lower extremities but she states this is much better. Blood pressure 107/73, heart rate 79, pulse ox 90% on 12 L high flow nasal cannula. Repeat blood work reveals hemoglobin 16.4. Sodium 128, BUN 39 creatinine 0.76, CO2 38. Yesterday, IV Lasix was transitioned to oral by pulmonary medicine. Patient has a negative fluid balance with documented weight loss of 7 kg. 09/12 Patient states that she is a little bit better today. She states she does not have any chest pain or chest pressure or tightness. She has a little dizzy. Edema to the lower extremities is a little better from yesterday. She has been maintained on oral Lasix and yesterday we decreased the frequency of metolazone to once daily due to drop in sodium. Today sodium is 129, potassium 3.9, BUN 39 creatinine 0.83, hemoglobin 16.6.. Blood pressure 100/70, heart rate 90, pulse ox 88% on 12 L nasal cannula. 09/13 Patient seen and examined. No medication changes were made by us yesterday. Patient is on 12 L high flow nasal cannula with pulse ox of 89% and followed by pulmonary medicine. Blood pressure 113/76, heart rate in the 80s. Repeat blood work reveals WBC 10.8, hemoglobin 16.8, sodium 131, potassium 3.4, BUN 39 creatinine 0.81. Patient states that her breathing is okay. She slept okay last night. She denies chest pain. No cough no wheezing. She does have some nausea. She continues to have some lower extremity edema. 09/14 Patient seen and examined. Patient states that her breathing is okay. She denies chest pain. She slept okay last night. She continues to have a little lower extremity edema. Blood pressure 97/64, heart rate in the 80s and 90s, pulse ox 90% on 9 L high flow nasal cannula. Repeat blood work reveals WBC 15, hemoglobin 18, sodium 130, potassium 4, BUN 43 creatinine 0.84 and CO2 40. Patient has a negative fluid balance with documented weight loss. Telemetry sinus rhythm. No medication changes made today. 09/15 Patient seen and examined. She states that her breathing is about the same. She denies having any nausea at this time. She states she did not sleep well last night. She continues to have lower extremity edema. Patient has been con tinued on oral Lasix as well as metolazone and Aldactone. Blood pressure 113/72, heart rate in the 80s, pulse ox 92% on high flow nasal cannula at 10 L. Patient has a negative fluid balance with documented weight loss. Repeat blood work reveals sodium 128, potassium 3.4, chloride 77, CO2 45, BUN 40 creatinine 0.73. proBNP 18,000. CTA of the chest performed yesterday afternoon revealed no PE. Persistent but improved subcutaneous. Resolved small right pleural effusion. Persistent small to moderate left pleural effusion. Moderate to advanced emphysematous changes redemonstrated. No acute process. Cardiomegaly. Small to moderate. Size pericardial effusion. Evidence of underlying pulmonary artery hypertension and right-sided heart failure. PHYSICAL EXAM: VITAL SIGNS: Reviewed. GENERAL: Well-developed in no acute distress. NECK: Supple. No JVD, no thyromegaly LUNGS: Respirations even and unlabored. mild decreased breath sounds at the bases. HEART: Regular rate and rhythm. S1 and S2 heard. 2/6 systolic murmur. EXTREMITIES: No clubbing or cyanosis. Peripheral pulses intact. 12+ bilateral lower extremity edema ASSESSMENT: Shortness of breath Acute on chronic hypoxic respiratory failure Acute on chronic heart failure with preserved EF Acute Cor pulmonale Moderate pericardial effusion Severe pulmonary hypertension, class III Left pleural effusion, status post thoracentesis with removal 800 cc, 09/06/2024 Trace pneumothorax, post thoracentesis Hyponatremia PLAN: 1 dose of IV Lasix 40 mg now Continue oral Lasix 40 mg twice daily Continue metolazone 5 mg black-eyed sharp daily Continue aspirin 81 mg Increase Aldactone to 50 mg daily Add Farxiga 10 mg daily Daily weights, accurate intake and output, monitoring of kidney function Nurse practitioner note has been reviewed, I agree with documented findings and plan of care. Patient was seen and examined. Objective - Vital Signs Vital signs: Vital Signs Temp 97.7 F 09/15/24 07:50 Pulse 86 09/15/24 08:53 Resp 18 09/15/24 07:50 BP 108/70 09/15/24 07:50 Pulse Ox 89 L 09/15/24 08:33 FiO2 70 09/09/24 08:20 Intake & Output 09/14/24 09/15/24 09/15/24 18:59 06:59 18:59 Intake Total 470 237 Output Total 1600 1450 Balance -1130 -1213 Weight 66.3 kg 65.3 kg Intake: Oral 470 237 Output: Urine 1600 1450 Other: Voiding Method Bedside Commode Bedside Commode # Bowel Movements 1 - Labs CBC & Chem 7: 09/14/24 06:38 09/15/24 05:18 Labs: Abnormal Lab Results - Last 24 Hours (Table) 09/14/24 09/14/24 09/14/24 Range/Units 11:19 16:31 19:59 Sodium (137-145) mmol/L Potassium (3.5-5.1) mmol/L Chloride (98-107) mmol/L Carbon Dioxide (22-30) mmol/L BUN (7-17) mg/dL Glucose (74-99) mg/dL POC Glucose (mg/dL) 156 H 160 H 137 H (70-110) mg/dL 09/15/24 09/15/24 Range/Units 05:18 06:02 Sodium 128 L (137-145) mmol/L Potassium 3.4 L (3.5-5.1) mmol/L Chloride 77 L (98-107) mmol/L Carbon Dioxide 45 H* (22-30) mmol/L BUN 40 H (7-17) mg/dL Glucose 107 H (74-99) mg/dL POC Glucose (mg/dL) 134 H (70-110) mg/dL
--- NOTE | 2024-09-15 14:19 | P.PN ---
Subjective Progress Note Date: 09/15/24 Principal diagnosis: Acute on chronic hypoxic respiratory failure, multifactorial This is an 78-year-old female patient with no prior cardiac history but medical history significant for chronic hypoxic respiratory failure secondary to COPD and alpha 1 antitrypsin deficiency presented to the hospital with progressive exertional dyspnea associated with progressive bilateral lower extremity edema for the last few days. No symptoms of chest pain or chest discomfort but she felt she was experiencing severe congestions with no fever and no chills and no cough and no sputum production. No other cardiovascular symptoms of dizziness or lightheadedness or any feeling of heart racing or fluttering or presyncope or syncope. She developed severe bilateral lower extremities edema. When she presented to the hospital she was hypoxic requiring high flow oxygen. Normally she is on 2 L of oxygen continuously. Definitely her oxygen requirement has increased within the last few days and she has been doing pulse oximetry at home and noticed that her oxygen saturation has been low. She underwent further evaluation including EKG showing RBBB. NT proBNP came to be elevated at 5000. First set of troponin is unremarkable with chest x-ray showed finding consistent with pulmonary vascular congestions and left pleural effusion but CT scan of the chest showed no evidence of PE. Venous duplex study showed no evidence of DVT as well. The physical examination is remarkable for regular rhythm with a systolic murmur at the right and left upper sternal border with diminished br eathing sounds bilaterally and bilateral rhonchi and severe bilateral lower extremities pitting edema. I initially saw this patient in my office. She was hypoxic and she was in significant volume overload with extensive lower extremity edema. I directed this patient to the Emergency Department. After being in the hospital for around 3 days, the patient remained hypoxic and the patient remains on Airvo at 45 L with an FiO2 of 65%. Based on that, a pulmonary consultation was requested. I reviewed the CT of the chest that was done on this patient. The patient has extensive emphysematous changes bilaterally and the patient also has a moderate-sized left-sided pleural effusion. No airspace disease. No consolidation. No pneumonias. There is also a new moderate to small size pericardial effusion. Echocardiogram was completed on 08/31/2024 and the patient was found to have a preserved LV function with an EF of around 65% and the patient also had severe RV dilatation, reduced RV global systolic function and severe pulmonary hypertension along with moderate pericardial effusion without signs of any tamponade. The patient had severe tricuspid regurgitation. Estimated right ventricular systolic pressure was 94. For now, the patient is on Lasix 40 mg IV every 12 hours. Monitoring her fluid balance has been essentially negative and the patient has been -2.2 L over the past 24 hours. Most recent electrolytes show a sodium level of 132, potassium of 3.6, BUN 31 with a creatinine 0.7. The white cell count is at 8.8 with a hemoglobin 17.3. She is currently on Lasix 40 mg IV every 12 hours. She is also on Aldactone 25 mg p.o. daily. She remains on IV heparin. The procal citonin level was 0.08. Troponins were nonelevated. On 09/05/2024, the patient is being seen for a follow-up. The patient is calm and comfortable. The patient is currently on Airvo 45 L with an FiO2 of 65%. She remains on Bumex 1 mg p.o. twice daily and Aldactone 25 mg p.o. daily. She has been diuresing well over the past several days and the patient has been negative fluid balance of 1.1 L over the past 24 hours. No significant shortness of breath at rest. Continues to have significant amount of edema lower extremities bilaterally. The white cell count is at 8.4 with a hemoglobin 17.4 and a platelet count of 167. BUN is 30 with a creatinine of of 0.7. Sodium level is at 132 and a potassium level is at 3.5. Viral screen was negative. Chest x-ray from yesterday was consistent with COPD with chronic emphysematous changes and cardiomegaly and small left-sided pleural effusion. The patient also was noted to have a moderate-sized pericardial effusion without signs of tamponade. The patient was taken off the IV Lasix and the patient was started on Bumex in combination with Aldactone. 09/06/2024, the patient remains on Airvo 45 L with FiO2 of 50%. The fluid balance has been +125 cc over the past 24 hours. Based on that, making recommendations to start the patient on Lasix drip at 5 mg an hour. She continues to have significant amount of edema lower extremities bilaterally. Further workup was ordered by the medical group including a Doppler of lower extremity that showed no evidence of any DVT and CTA of the chest that showed no evidence of any pulmonary embolism. There was extensive bilateral severe emphysematous changes and a chronic left-sided pleural effusion. Based on that, I performed a bedside thoracentesis this patient and I drained approximately 800 cc of pleural fluid from the left lung. The patient tolerated the procedure well without any complications. The fluid will be sent for analysis. The white cell count is 8.4, hemoglobin is 17.4 and platelet count of 167. BUN is 30 with a creatinine of 0.7 and sodium is at 132 and a potassium level is at 3.5. 09/07/2024, the patient is being seen for a follow-up. The patient remains on Airvo at 45 L and FiO2 of 65%. Pulse ox is in the order of 92%. Remains dependent on high flow oxygen. She continues to diurese with Lasix drip at 5 mg an hour. She is postthoracentesis and a total of 800 cc of pleural fluid was aspirated from the left lung. The pleural fluid was a transudate. The chemi stry that showed low LDH and low protein. The white cell count was also low with a lymphocytic predominance. The patient has no specific complaints. The white cell count is at 5.6, hemoglobin is 16.6 and a platelet count is at 153. Sodium is at 130, BUN 29 with a creatinine of 0.7. K level is at 3.4. Remains on DuoNeb updrafts. Will start IV Solu-Medrol. 09/08/2024, the patient is being seen for a follow-up. Remains on Airvo 40 L and FiO2 of 65%. Currently on Lasix drip at 5 mg an hour. Also on Zaroxolyn 5 mg p.o. twice a day.. She is also on a combination of bronchodilators and IV Solu- Medrol. Unfortunately, no significant improvement in oxygenation over the past 24 hours and will continue to monitor. The white cell count of 9.5, hemoglobin is at 15.6 and a platelet count of 156. Sodium levels at 129, potassium level 3.3. BUN is 34 with a creatinine of 0.7. Procalcitonin level is at 0.08. Cortisol level is at 32. Pleural fluid aspirated from the left lung was consistent with a transudate. On 09/09/2024, the patient was taken off the Airvo and the patient was placed on 12 L of oxygen by nasal cannula. Current pulse ox is around 88%. She is calm and comfortable. Denies having any new complaints. I am not sure if the patient is having accurate input output measurement. Nevertheless, based on the fluid balance, she is +500 cc over the past 24 hours. She is off the Lasix drip and the patient is currently receiving Lasix 40 mg IV every 12 hours. She is also on Zaroxolyn 5 mg p.o. twice a day. He is also on Aldactone 25 mg p.o. daily. Doing well. Afebrile. Hemodynamically stable. Blood work from today shows a white cell count of 10.3, hemoglobin of 15 and a platelet count of 176. BUN 36 with a creatinine of 0.7. Sodium level is at 128. No other significant events otherwise for now. 09/10/2024, the patient is doing well on 12 L of oxygen by nasal cannula. Pulse ox is ranging between 88 to 92%. No specific complaints. She still diuresing with a combination of Zaroxolyn and IV Lasix. There is some residual lower extremity edema. The white cell count of 8.7 with a hemoglobin of 6.4 and a platelet count of 161. Patient also has a stable level of 127, potassium level of 3.4,, chloride 86, BUN is 40 with a creatinine of 0.6. Patient was seen today on 09/11/2024, remains on the cardiac floor, remains on 12 L high flow nasal cannula, O2 saturation is 92%. Patient has been diuresing wit different diuretics including Zaroxolyn and Lasix, does not seem to be in distress Patient had thoracentesis done by Dr. San about 5 days ago, cytology was negative for malignancy, fluid was mostly transudative in nature. WBC is 9.3 hemoglobin 16.4 electrolytes are relatively normal except of sodium 128, BUN is 39 creatinine 0.76 hemodynamically the patient is stable, clinically she feels better, breathing easier, still being followed by many consultants including cardiology, patient is responding to diuretics but nonetheless she still requiring significant amount of FiO2. Patient was seen today on 09/12/2024, patient is feeling better today, less shortness of breath, no chest pain, no chest pressure, no tightness, patient remains on diuretics, she is on oral Lasix, cardiology is handling diuretics patient had a follow-up chest x-ray with small recurrent left pleural effusion noted, some atelectasis, patient is still requiring relatively high FiO2, on 12 L nasal cannula. No plans to perform thoracentesis on this patient since the size of the fluid is #1 way too small, and patient had previous thoracentesis the fluid was transudative in nature. CT angiogram of the chest on admission showed no evidence of pulmonary embolism on this patient. Seen today on09/13/24, patient is clinically feeling better, however she remains on high FiO2 at 12 L, O2 sat show is marginal. Chest x-ray showed small left pleural effusion, previous CT angiogram of the chest to rule out pulmonary embolism patient remains on diuretics, she does have pulmonary hypertension, overall not much of a change in the last few days. Basically about the same. However she could not be discharged home on 12 L nasal cannula and we are continuing diuretics. Also on bronchodilators Patient was seen today , clinically improving but her FiO2 requirement remains high on 12 L high flow nasal cannula titrated down to 9 L and maintain her O2 saturation in the low 90s. Patient has very minimal small left pleural effusion to explain her profound hypoxia, hence today I recommended a CT angiogram on this patient. And this is pending. My index of suspicion for pulmonary embolism is rather low but considering her ongoing hypoxia it is best to be safe and address that accordingly. She did have CT angiogram on her initial presentation and that was negative for PE. WBC count 15.17 hemoglobin is 18.2 electrolytes are normal renal profile is relatively normal bicarb is 40. Patient was seen today on 09/15/2024, patient remains about the same, clinically better but still requiring high O2 flow, she is now on 10 L high flow nasal cannula, CT angiogram of the chest showed no evidence of pulmonary embolism, the effusion is very small, and clearly not contributing to her hypoxia much. Patient remains on diuretics, remains on bronchodilators, clinically better but still requiring high FiO2. Labs today were reviewed bicarb is 45 renal profile is normal sodium is 128 Objective - Vital Signs Vital signs: Vital Signs Temp 97.9 F 09/15/24 11:32 Pulse 86 09/15/24 12:58 Resp 17 09/15/24 11:32 BP 113/72 09/15/24 11:32 Pulse Ox 92 L 09/15/24 11:32 FiO2 70 09/09/24 08:20 Intake & Output 09/14/24 09/15/24 09/15/24 18:59 06:59 18:59 Intake Total 470 237 Output Total 1600 1450 1500 Balance -1130 -1213 -1500 Weight 66.3 kg 65.3 kg Intake: Oral 470 237 Output: Urine 1600 1450 1500 Other: Voiding Method Bedside Commode Bedside Commode Bedside Commode # Voids 1 # Bowel Movements 1 - Exam GENERAL: Revealed 78-year-old female in no distress on 10 L high flow nasal cannula Head: Atraumatic normocephalic NECK: Supple. + JVD, no thyromegaly LUNGS: Diminished breath sounds at the bases no rhonchi no wheezes no crackles HEART: Distant S1-S2, no S3 gallop, 2/6 systolic murmur throughout the precordium Abdomen: Soft nontender No rebound Extremities no clubbing 1+ bipedal edema or cyanosis Neurologic: Alert oriented x 3 no gross focal deficit Psychiatric: Normal mood affect and no mental status examination Skin: No rashes - Labs CBC & Chem 7: 09/14/24 06:38 09/15/24 05:18 Labs: Abnormal Lab Results - Last 24 Hours (Table) 09/14/24 09/14/24 09/15/24 Range/Units 16:31 19:59 05:18 Sodium 128 L (137-145) mmol/L Potassium 3.4 L (3.5-5.1) mmol/L Chloride 77 L (98-107) mmol/L Carbon Dioxide 45 H* (22-30) mmol/L BUN 40 H (7-17) mg/dL Glucose 107 H (74-99) mg/dL POC Glucose (mg/dL) 160 H 137 H (70-110) mg/dL 09/15/24 Range/Units 06:02 Sodium (137-145) mmol/L Potassium (3.5-5.1) mmol/L Chloride (98-107) mmol/L Carbon Dioxide (22-30) mmol/L BUN (7-17) mg/dL Glucose (74-99) mg/dL POC Glucose (mg/dL) 134 H (70-110) mg/dL Assessment and Plan Assessment: A impression: acute on chronic hypoxic respiratory failure Acute on chronic heart failure with preserved EF Chronic right-sided heart failure with severe pulmonary hypertension Acute Cor pulmonale Moderate pericardial effusion Severe pulmonary hypertension Left pleural effusion, status post thoracentesis with removal 800 cc, 09/06/2024 Trace pneumothorax, post thoracentesis History of panic attacks and generalized anxiety disorder History of gout Urinary retention requiring urology placement of Alba catheter Hyponatremia secondary to diuretics Recommendation: Continue oxygen titration keep O2 sat above 88% Continue diuretics CT angiogram of the chest was reviewed and discussed with the patient Continue steroids Continue bronchodilators Prognosis is guarded considering her multiple complex issues Will continue to follow. Needs to have titration of her O2 down to 5 L or less before discharge. CODE STATUS remains DNR/DNI Time with Patient: Less than 30
[2024-09-15 16:36] LABS: Glucose,Whole Blood 237 mg/dL (70-110)
[2024-09-15 19:55] LABS: Glucose,Whole Blood 121 mg/dL (70-110)
--- NOTE | 2024-09-15 20:37 | P.PN ---
Subjective Progress Note Date: 09/15/24 Patient is admitted for multifactorial respiratory failure secondary to CHF COPD with acute exacerbation still having hypoxia patient is on 10 L of oxygen patient has diminished air entry into bilateral lung gupta patient has alpha-1 antitrypsin deficiency leading to severe emphysema usually uses oxygen but patient is on high amount of oxygen at this time patient also has chronic right- sided heart failure with severe pulmonary hypertension and cor pulmonale. Patient had a CT of the chest as we are unable to wean her off oxygen CT did not show any pulmonary embolism but did show some pericardial effusion. 09/15/2024 Patient is evaluated today in the follow up. Sitting up in the chair. Continues with significant peripheral edema and pitting up to the thighs. Continues on oral lasix BID. Urine out 2.2 L so far today. IV lasix x 1 dose given also. Patient continues on 10 L of oxygen via nasal cannula. Labs today reveal sodium 128, potassium 3.4, CO2 45, BNP 18,000. Dr Allan in to see patient today for routine care and trimming of the nails on bilateral feet. Review of Systems Constitutional: Denied any fatigue denied any fever. Cardio vascular: denied any chest pain, palpitations Gastrointestinal: denied any nausea, vomiting, diarrhea Pulmonary: Denied any shortness of breath cough Neurologic denied any new focal deficits All inpatient medications were reviewed and appropriate changes in these medications as dictated in the interval history and assessment and plan. PHYSICAL EXAMINATION: GENERAL: The patient is alert and oriented x3, not in any acute distress. Thin built cachectic female HEENT: Pupils are round and equally reacting to light. EOMI. No scleral icterus. No conjunctival pallor. Normocephalic, atraumatic. No pharyngeal erythema. No thyromegaly. CARDIOVASCULAR: S1 and S2 present. No murmurs, rubs, or gallops. PULMONARY: Decreased air entry to bilateral lung gupta ABDOMEN: Soft, nontender, nondistended, normoactive bowel sounds. No palpable organomegaly. MUSCULOSKELETAL: No joint swelling or deformity. EXTREMITIES: No cyanosis, clubbing, +1 pitting lower extremity edema NEUROLOGICAL: Gross neurological examination did not reveal any focal deficits. SKIN: No rashes. Assessment and plan -Acute on chronic hypoxic and hypercapnic respiratory failure secondary to COPD exacerbation right-sided heart failure pulmonary hypertension Hyponatremia secondary to excessive diuresis - Acute cor pulmonale - Congestive heart failure with preserved ejection fraction or diastolic dysfunction - Severe pulmonary hypertension - Trace pneumothorax with status post thoracentesis - Mild to moderate pericardial effusion - Urinary retention patient has a Alba catheter in place DVT prophylaxis: Patient will be started on low-dose Lovenox Continue oral lasix 40 mg BID and strict intake and output monitoring. Patient received IV lasix x 1 today. Wean oxygen as tolerated. Repeat CBC, BMP in the AM. Cardiology and pulmonology following. The impression and plan of care has been dictated by Neli Redding, Nurse Practitioner as directed. Dr. Abe MD I have performed a history and physical examination and medical decision making of this patient, discussed the same with the dictator, and agree with the dictators assessment and plan as written, documented as a scribe. Based on total visit time, I have performed more than 50% of this visit. Objective - Vital Signs Vital signs: Vital Signs Temp 97.9 F 09/15/24 11:32 Pulse 86 09/15/24 12:58 Resp 17 09/15/24 11:32 BP 113/72 09/15/24 11:32 Pulse Ox 92 L 09/15/24 11:32 FiO2 70 09/09/24 08:20 Intake & Output 09/14/24 09/15/24 09/15/24 18:59 06:59 18:59 Intake Total 470 237 Output Total 1600 1450 800 Balance -1130 -1213 -800 Weight 66.3 kg 65.3 kg Intake: Oral 470 237 Output: Urine 1600 1450 800 Other: Voiding Method Bedside Commode Bedside Commode Bedside Commode # Voids 1 # Bowel Movements 1 - Labs CBC & Chem 7: 09/14/24 06:38 09/15/24 05:18 Labs: Abnormal Lab Results - Last 24 Hours (Table) 09/14/24 09/14/24 09/15/24 Range/Units 16:31 19:59 05:18 Sodium 128 L (137-145) mmol/L Potassium 3.4 L (3.5-5.1) mmol/L Chloride 77 L (98-107) mmol/L Carbon Dioxide 45 H* (22-30) mmol/L BUN 40 H (7-17) mg/dL Glucose 107 H (74-99) mg/dL POC Glucose (mg/dL) 160 H 137 H (70-110) mg/dL 09/15/24 Range/Units 06:02 Sodium (137-145) mmol/L Potassium (3.5-5.1) mmol/L Chloride (98-107) mmol/L Carbon Dioxide (22-30) mmol/L BUN (7-17) mg/dL Glucose (74-99) mg/dL POC Glucose (mg/dL) 134 H (70-110) mg/dL Assessment and Plan Time with Patient: Less than 30
[2024-09-16 05:58] LABS: Glucose,Whole Blood 185 mg/dL (70-110)
[2024-09-16 06:42] LABS: Basophils # (A) 0.01 10*3/uL (0.00-0.10); Basophils % (A) 0.1 %; HCT 48.8 % (37.2-46.3); HGB 16.5 g/dL (12.0-15.0); Lymphocytes # (A) 0.16 10*3/uL (0.90-5.00); MCH 30.6 pg (27.0-32.0); MCHC 33.8 g/dL (32.0-37.0); MCV 90.4 fL (80.0-97.0); Mean Platelet Volume 11.1 fL (9.5-12.2); Monocytes # (A) 0.79 10*3/uL (0.20-1.00); Monocytes % (A) 5.2 %; Neutrophils # (A) 14.23 10*3/uL (1.80-7.70); Neutrophils % (A) 92.8 %; Platelet Count 233 10*3/uL (140-440); RDW 15.9 % (11.5-14.5); WBC 15.33 10*3/uL (4.50-10.00)
[2024-09-16 07:28] LABS: African American GFR (CKD) >90 (>60 ml/min/1.73 sqM); Blood Urea Nitrogen 41 mg/dL (7-17); Calcium 9.5 mg/dL (8.4-10.2); Glucose 162 mg/dL (74-99); Non-African American GFR(CKD) 80 (>60 ml/min/1.73 sqM); Potassium 2.8 mmol/L (3.5-5.1); Sodium 128 mmol/L (137-145)
[2024-09-16 07:34] LABS: Anion Gap 9 mmol/L
[2024-09-16 07:36] LABS: Chloride 74 mmol/L (98-107)
[2024-09-16] MEDS: SPIRONOLACTONE 25 MG TAB PO SCH (09:24)
[2024-09-16] MEDS: POTASSIUM CHLORIDE ER 20 MEQ TAB.ER PO STA (09:36)
--- NOTE | 2024-09-16 10:23 | P.PN ---
Subjective Progress Note Date: 09/16/24 The patient was seen for urinary retention by myself on 09/03/2024. The catheter is out and she is urinating without difficulty at present. No further urologic care is required. Objective - Vital Signs Vital signs: Vital Signs Temp 97.9 F 09/16/24 09:00 Pulse 91 09/16/24 09:28 Resp 22 09/16/24 09:28 BP 92/59 09/16/24 09:00 Pulse Ox 90 L 09/16/24 09:00 FiO2 70 09/09/24 08:20 Intake & Output 09/15/24 09/16/24 09/16/24 18:59 06:59 18:59 Intake Total 619 110 222 Output Total 1999 1999 400 Balance -1381 -1890 -178 Weight 63.2 kg Intake: Oral 619 110 222 Output: Urine 1999 Other: Voiding Method Bedside Commode Bedside Commode Bedside Commode # Voids 1 1 # Bowel Movements 1 1 - Labs CBC & Chem 7: 09/16/24 05:21 09/16/24 05:21 Labs: Abnormal Lab Results - Last 24 Hours (Table) 09/15/24 09/15/24 09/16/24 Range/Units 16:34 19:53 05:21 WBC 15.33 H (4.50-10.00) 10*3/uL RBC 5.40 H (4.10-5.20) 10*6/uL Hgb 16.5 H (12.0-15.0) g/dL Hct 48.8 H (37.2-46.3) % Immature Gran # 0.14 H (0.00-0.04) 10*3/uL Neutrophils # 14.23 H (1.80-7.70) 10*3/uL Lymphocytes # 0.16 L (0.90-5.00) 10*3/uL Eosinophils # 0.00 L (0.04-0.35) 10*3/uL Sodium (137-145) mmol/L Potassium (3.5-5.1) mmol/L Chloride (98-107) mmol/L Carbon Dioxide (22-30) mmol/L BUN (7-17) mg/dL Glucose (74-99) mg/dL POC Glucose (mg/dL) 237 H 121 H (70-110) mg/dL 09/16/24 09/16/24 Range/Units 05:21 05:57 WBC (4.50-10.00) 10*3/uL RBC (4.10-5.20) 10*6/uL Hgb (12.0-15.0) g/dL Hct (37.2-46.3) % Immature Gran # (0.00-0.04) 10*3/uL Neutrophils # (1.80-7.70) 10*3/uL Lymphocytes # (0.90-5.00) 10*3/uL Eosinophils # (0.04-0.35) 10*3/uL Sodium 128 L (137-145) mmol/L Potassium 2.8 L (3.5-5.1) mmol/L Chloride 74 L* (98-107) mmol/L Carbon Dioxide 45 H* (22-30) mmol/L BUN 41 H (7-17) mg/dL Glucose 162 H (74-99) mg/dL POC Glucose (mg/dL) 185 H (70-110) mg/dL
[2024-09-16 11:25] LABS: Glucose,Whole Blood 147 mg/dL (70-110)
--- NOTE | 2024-09-16 12:54 | P.PN ---
Subjective Progress Note Date: 09/16/24 Principal diagnosis: Acute on chronic hypoxic respiratory failure, multifactorial This is an 78-year-old female patient with no prior cardiac history but medical history significant for chronic hypoxic respiratory failure secondary to COPD and alpha 1 antitrypsin deficiency presented to the hospital with progressive exertional dyspnea associated with progressive bilateral lower extremity edema for the last few days. No symptoms of chest pain or chest discomfort but she felt she was experiencing severe congestions with no fever and no chills and no cough and no sputum production. No other cardiovascular symptoms of dizziness or lightheadedness or any feeling of heart racing or fluttering or presyncope or syncope. She developed severe bilateral lower extremities edema. When she presented to the hospital she was hypoxic requiring high flow oxygen. Normally she is on 2 L of oxygen continuously. Definitely her oxygen requirement has increased within the last few days and she has been doing pulse oximetry at home and noticed that her oxygen saturation has been low. She underwent further evaluation including EKG showing RBBB. NT proBNP came to be elevated at 5000. First set of troponin is unremarkable with chest x-ray showed finding consistent with pulmonary vascular congestions and left pleural effusion but CT scan of the chest showed no evidence of PE. Venous duplex study showed no evidence of DVT as well. The physical examination is remarkable for regular rhythm with a systolic murmur at the right and left upper sternal border with diminished br eathing sounds bilaterally and bilateral rhonchi and severe bilateral lower extremities pitting edema. I initially saw this patient in my office. She was hypoxic and she was in significant volume overload with extensive lower extremity edema. I directed this patient to the Emergency Department. After being in the hospital for around 3 days, the patient remained hypoxic and the patient remains on Airvo at 45 L with an FiO2 of 65%. Based on that, a pulmonary consultation was requested. I reviewed the CT of the chest that was done on this patient. The patient has extensive emphysematous changes bilaterally and the patient also has a moderate-sized left-sided pleural effusion. No airspace disease. No consolidation. No pneumonias. There is also a new moderate to small size pericardial effusion. Echocardiogram was completed on 08/31/2024 and the patient was found to have a preserved LV function with an EF of around 65% and the patient also had severe RV dilatation, reduced RV global systolic function and severe pulmonary hypertension along with moderate pericardial effusion without signs of any tamponade. The patient had severe tricuspid regurgitation. Estimated right ventricular systolic pressure was 94. For now, the patient is on Lasix 40 mg IV every 12 hours. Monitoring her fluid balance has been essentially negative and the patient has been -2.2 L over the past 24 hours. Most recent electrolytes show a sodium level of 132, potassium of 3.6, BUN 31 with a creatinine 0.7. The white cell count is at 8.8 with a hemoglobin 17.3. She is currently on Lasix 40 mg IV every 12 hours. She is also on Aldactone 25 mg p.o. daily. She remains on IV heparin. The procal citonin level was 0.08. Troponins were nonelevated. On 09/05/2024, the patient is being seen for a follow-up. The patient is calm and comfortable. The patient is currently on Airvo 45 L with an FiO2 of 65%. She remains on Bumex 1 mg p.o. twice daily and Aldactone 25 mg p.o. daily. She has been diuresing well over the past several days and the patient has been negative fluid balance of 1.1 L over the past 24 hours. No significant shortness of breath at rest. Continues to have significant amount of edema lower extremities bilaterally. The white cell count is at 8.4 with a hemoglobin 17.4 and a platelet count of 167. BUN is 30 with a creatinine of of 0.7. Sodium level is at 132 and a potassium level is at 3.5. Viral screen was negative. Chest x-ray from yesterday was consistent with COPD with chronic emphysematous changes and cardiomegaly and small left-sided pleural effusion. The patient also was noted to have a moderate-sized pericardial effusion without signs of tamponade. The patient was taken off the IV Lasix and the patient was started on Bumex in combination with Aldactone. 09/06/2024, the patient remains on Airvo 45 L with FiO2 of 50%. The fluid balance has been +125 cc over the past 24 hours. Based on that, making recommendations to start the patient on Lasix drip at 5 mg an hour. She continues to have significant amount of edema lower extremities bilaterally. Further workup was ordered by the medical group including a Doppler of lower extremity that showed no evidence of any DVT and CTA of the chest that showed no evidence of any pulmonary embolism. There was extensive bilateral severe emphysematous changes and a chronic left-sided pleural effusion. Based on that, I performed a bedside thoracentesis this patient and I drained approximately 800 cc of pleural fluid from the left lung. The patient tolerated the procedure well without any complications. The fluid will be sent for analysis. The white cell count is 8.4, hemoglobin is 17.4 and platelet count of 167. BUN is 30 with a creatinine of 0.7 and sodium is at 132 and a potassium level is at 3.5. 09/07/2024, the patient is being seen for a follow-up. The patient remains on Airvo at 45 L and FiO2 of 65%. Pulse ox is in the order of 92%. Remains dependent on high flow oxygen. She continues to diurese with Lasix drip at 5 mg an hour. She is postthoracentesis and a total of 800 cc of pleural fluid was aspirated from the left lung. The pleural fluid was a transudate. The chemi stry that showed low LDH and low protein. The white cell count was also low with a lymphocytic predominance. The patient has no specific complaints. The white cell count is at 5.6, hemoglobin is 16.6 and a platelet count is at 153. Sodium is at 130, BUN 29 with a creatinine of 0.7. K level is at 3.4. Remains on DuoNeb updrafts. Will start IV Solu-Medrol. 09/08/2024, the patient is being seen for a follow-up. Remains on Airvo 40 L and FiO2 of 65%. Currently on Lasix drip at 5 mg an hour. Also on Zaroxolyn 5 mg p.o. twice a day.. She is also on a combination of bronchodilators and IV Solu- Medrol. Unfortunately, no significant improvement in oxygenation over the past 24 hours and will continue to monitor. The white cell count of 9.5, hemoglobin is at 15.6 and a platelet count of 156. Sodium levels at 129, potassium level 3.3. BUN is 34 with a creatinine of 0.7. Procalcitonin level is at 0.08. Cortisol level is at 32. Pleural fluid aspirated from the left lung was consistent with a transudate. On 09/09/2024, the patient was taken off the Airvo and the patient was placed on 12 L of oxygen by nasal cannula. Current pulse ox is around 88%. She is calm and comfortable. Denies having any new complaints. I am not sure if the patient is having accurate input output measurement. Nevertheless, based on the fluid balance, she is +500 cc over the past 24 hours. She is off the Lasix drip and the patient is currently receiving Lasix 40 mg IV every 12 hours. She is also on Zaroxolyn 5 mg p.o. twice a day. He is also on Aldactone 25 mg p.o. daily. Doing well. Afebrile. Hemodynamically stable. Blood work from today shows a white cell count of 10.3, hemoglobin of 15 and a platelet count of 176. BUN 36 with a creatinine of 0.7. Sodium level is at 128. No other significant events otherwise for now. 09/10/2024, the patient is doing well on 12 L of oxygen by nasal cannula. Pulse ox is ranging between 88 to 92%. No specific complaints. She still diuresing with a combination of Zaroxolyn and IV Lasix. There is some residual lower extremity edema. The white cell count of 8.7 with a hemoglobin of 6.4 and a platelet count of 161. Patient also has a stable level of 127, potassium level of 3.4,, chloride 86, BUN is 40 with a creatinine of 0.6. Patient was seen today on 09/11/2024, remains on the cardiac floor, remains on 12 L high flow nasal cannula, O2 saturation is 92%. Patient has been diuresing wit different diuretics including Zaroxolyn and Lasix, does not seem to be in distress Patient had thoracentesis done by Dr. San about 5 days ago, cytology was negative for malignancy, fluid was mostly transudative in nature. WBC is 9.3 hemoglobin 16.4 electrolytes are relatively normal except of sodium 128, BUN is 39 creatinine 0.76 hemodynamically the patient is stable, clinically she feels better, breathing easier, still being followed by many consultants including cardiology, patient is responding to diuretics but nonetheless she still requiring significant amount of FiO2. Patient was seen today on 09/12/2024, patient is feeling better today, less shortness of breath, no chest pain, no chest pressure, no tightness, patient remains on diuretics, she is on oral Lasix, cardiology is handling diuretics patient had a follow-up chest x-ray with small recurrent left pleural effusion noted, some atelectasis, patient is still requiring relatively high FiO2, on 12 L nasal cannula. No plans to perform thoracentesis on this patient since the size of the fluid is #1 way too small, and patient had previous thoracentesis the fluid was transudative in nature. CT angiogram of the chest on admission showed no evidence of pulmonary embolism on this patient. Seen today on09/13/24, patient is clinically feeling better, however she remains on high FiO2 at 12 L, O2 sat show is marginal. Chest x-ray showed small left pleural effusion, previous CT angiogram of the chest to rule out pulmonary embolism patient remains on diuretics, she does have pulmonary hypertension, overall not much of a change in the last few days. Basically about the same. However she could not be discharged home on 12 L nasal cannula and we are continuing diuretics. Also on bronchodilators Patient was seen today , clinically improving but her FiO2 requirement remains high on 12 L high flow nasal cannula titrated down to 9 L and maintain her O2 saturation in the low 90s. Patient has very minimal small left pleural effusion to explain her profound hypoxia, hence today I recommended a CT angiogram on this patient. And this is pending. My index of suspicion for pulmonary embolism is rather low but considering her ongoing hypoxia it is best to be safe and address that accordingly. She did have CT angiogram on her initial presentation and that was negative for PE. WBC count 15.17 hemoglobin is 18.2 electrolytes are normal renal profile is relatively normal bicarb is 40. Patient was seen today on 09/15/2024, patient remains about the same, clinically better but still requiring high O2 flow, she is now on 10 L high flow nasal cannula, CT angiogram of the chest showed no evidence of pulmonary embolism, the effusion is very small, and clearly not contributing to her hypoxia much. Patient remains on diuretics, remains on bronchodilators, clinically better but still requiring high FiO2. Labs today were reviewed bicarb is 45 renal profile is normal sodium is 128 Seen today on 09/16/2024, basically about the same, remains on high flow nasal cannula at 12 L today, O2 sats is marginal, patient does not seem to be showing any significant improvement whatsoever. Clinically she seems to be comfortable, and not in distress. WBC is 15.3 hemoglobin 16.5 electrolytes are abnormal with low sodium low potassium low chloride elevated bicarb, BUN is 41 creatinine 0.72, electrolytes are being addressed by admitting physician. Objective - Vital Signs Vital signs: Vital Signs Temp 97.9 F 09/16/24 09:00 Pulse 87 09/16/24 12:10 Resp 19 09/16/24 12:10 BP 96/60 09/16/24 12:10 Pulse Ox 91 L 09/16/24 12:10 FiO2 70 09/09/24 08:20 Intake & Output 09/15/24 09/16/24 09/16/24 18:59 06:59 18:59 Intake Total 619 110 444 Output Total 1999 1999 600 Balance -9701 -6798 -156 Weight 63.2 kg Intake: Oral 619 110 444 Output: Urine 1999 Other: Voiding Method Bedside Commode Bedside Commode Bedside Commode # Voids 1 1 # Bowel Movements 1 1 - Exam GENERAL: Revealed 78-year-old female in no distress on 12 L high flow nasal cannula Head: Atraumatic normocephalic NECK: Supple. + JVD, no thyromegaly LUNGS: Diminished breath sounds at the bases no rhonchi no wheezes no crackles HEART: Distant S1-S2, no S3 gallop, 2/6 systolic murmur throughout the precordium Abdomen: Soft nontender No rebound Extremities no clubbing 1+ bipedal edema or cyanosis Neurologic: Alert oriented x 3 no gross focal deficit Psychiatric: Normal mood affect and no mental status examination Skin: No rashes - Labs CBC & Chem 7: 09/16/24 05:21 09/16/24 05:21 Labs: Abnormal Lab Results - Last 24 Hours (Table) 09/15/24 09/15/24 09/16/24 Range/Units 16:34 19:53 05:21 WBC 15.33 H (4.50-10.00) 10*3/uL RBC 5.40 H (4.10-5.20) 10*6/uL Hgb 16.5 H (12.0-15.0) g/dL Hct 48.8 H (37.2-46.3) % Immature Gran # 0.14 H (0.00-0.04) 10*3/uL Neutrophils # 14.23 H (1.80-7.70) 10*3/uL Lymphocytes # 0.16 L (0.90-5.00) 10*3/uL Eosinophils # 0.00 L (0.04-0.35) 10*3/uL Sodium (137-145) mmol/L Potassium (3.5-5.1) mmol/L Chloride (98-107) mmol/L Carbon Dioxide (22-30) mmol/L BUN (7-17) mg/dL Glucose (74-99) mg/dL POC Glucose (mg/dL) 237 H 121 H (70-110) mg/dL 09/16/24 09/16/24 09/16/24 Range/Units 05:21 05:57 11:23 WBC (4.50-10.00) 10*3/uL RBC (4.10-5.20) 10*6/uL Hgb (12.0-15.0) g/dL Hct (37.2-46.3) % Immature Gran # (0.00-0.04) 10*3/uL Neutrophils # (1.80-7.70) 10*3/uL Lymphocytes # (0.90-5.00) 10*3/uL Eosinophils # (0.04-0.35) 10*3/uL Sodium 128 L (137-145) mmol/L Potassium 2.8 L (3.5-5.1) mmol/L Chloride 74 L* (98-107) mmol/L Carbon Dioxide 45 H* (22-30) mmol/L BUN 41 H (7-17) mg/dL Glucose 162 H (74-99) mg/dL POC Glucose (mg/dL) 185 H 147 H (70-110) mg/dL Assessment and Plan Assessment: A impression: acute on chronic hypoxic respiratory failure Acute on chronic heart failure with preserved EF Chronic right-sided heart failure with severe pulmonary hypertension Acute Cor pulmonale Moderate pericardial effusion Severe pulmonary hypertension Left pleural effusion, status post thoracentesis with removal 800 cc, 09/06/2024 Trace pneumothorax, post thoracentesis History of panic attacks and generalized anxiety disorder History of gout Urinary retention requiring urology placement of Alba catheter Hyponatremia secondary to diuretics Recommendation: Continue oxygen titration keep O2 sat above 88% Continue diuretics Continue steroids Continue bronchodilators Prognosis is guarded considering her multiple complex issues Will continue to follow. CODE STATUS remains DNR/DNI Time with Patient: Less than 30
--- NOTE | 2024-09-16 13:30 | P.PN ---
Subjective HISTORY OF PRESENT ILLNESS: This is an 78-year-old female patient with no prior cardiac history but medical history significant for chronic hypoxic respiratory failure secondary to COPD and alpha 1 antitrypsin deficiency presented to the hospital with progressive exertional dyspnea associated with progressive bilateral lower extremity edema for the last few days. No symptoms of chest pain or chest discomfort but she felt she was experiencing severe congestions with no fever and no chills and no cough and no sputum production. No other cardiovascular symptoms of dizziness or lightheadedness or any feeling of heart racing or fluttering or presyncope or syncope. She developed severe bilateral lower extremities edema. When she presented to the hospital she was hypoxic requiring high flow oxygen. Normally she is on 2 L of oxygen continuously. Definitely her oxygen requirement has increased within the last few days and she has been doing pulse oximetry at home and noticed that her oxygen saturation has been low. She underwent further evaluation including EKG showing RBBB. NT proBNP came to be elevated at 5000. First set of troponin is unremarkable with chest x-ray showed finding consistent with pulmonary vascular congestions and left pleural effusion but CT scan of the chest showed no evidence of PE. Venous duplex study showed no evidence of DVT as well. The physical examination is remarkable for regular rhythm with a systolic murmur at the right and left upper sternal border with diminished breathing sounds bilaterally and bilateral rhonchi and severe bilateral lower extremities pitting edema September 01, 2024 The patient was seen and evaluated this morning. She is overall feeling better. She still have bilateral lower extremities edema. The pressure remains marginal but appears to be better today which she was started on midodrine yesterday. Am going to stop the midodrine and decrease the dose of Lasix from 40 mg IV twice daily to 20 mg IV twice daily giving the marginally low blood pressure and also giving the finding on the echo including severe pulmonary hypertension and moderate pericardial effusion without tamponade physiology. The physical examination is remarkable for bilateral lower extremities edema. The troponin came to be mildly abnormal and I would consider medical treatment in the absence of any chest pain. September 02, 2024 The patient was seen and evaluated this morning. She is still hypoxic requiring high flow oxygen she still have severe bilateral lower extremities edema. Her pressure is better and with that I am going to increase the dose of Lasix to 40 mg IV twice daily which she is hypokalemic and the potassium is in process to be replaced. The physical examination is remarkable for diminished breathing sounds bilaterally and severe bilateral lower extremities edema. September 03, 2024 The patient was seen and evaluated this morning. The bilateral lower extremitie s edema has somewhat improved but continues to be there. She is on Lasix IV. I would suggest continue the current dose of Lasix IV and will follow-up with the blood work from the morning which is still pending. Otherwise she remains hemodynamically stable. No symptoms of chest pain or chest discomfort. The physical examination is remarkable for moderate bilateral lower extremities pitting edema with diminished breathing sounds bilaterally. Definitely the edema has improved after we increase the dose of Lasix yesterday. 09/04/2024 Patient is seen and examined at bedside this a.m. She is sitting in the chair with a high flow nasal cannula oxygen. 2+ pitting edema bilateral lower extrem ity, mild crackles in lung gupta, minimal wheezing. Alert oriented, reports that symptomatically she feels better since the time for admission. Blood pressure is borderline low with SBP around 90s to 100 mmHg. 09/05/2024 Patient is seen and examined at bedside this a.m. She continues to be on high flow nasal cannula 1-2+ pitting edema bilateral extremity with mild crackles in lung gupta with minimal wheezing Alert oriented Reports symptomatically feeling better. Blood pressure and heart rates are within acceptable ranges kidney function and electrolytes are within acceptable ranges. 09/06/2024 Patient examined this morning at the bedside. She remains on Airvo. She continues to report shortness of breath. She is currently on oral Bumex. She also is complaining of her left knee hurting. Repeat limited echo reveals severe right ventricular and right atrial enlargement, dilated IVC, moderate pericardial effusion mostly anterior. Venous Doppler completed negative for DVT. Patient underwent chest CTA which was negative for pulmonary embolism. Evidence of right heart strain, pulmonary hypertension with bilateral pleural effusions, pulmonary vascular congestion, and cardiomegaly. Moderate to severe emphysema. 09/07/2024 Patient examined this morning at the bedside. She is sitting up in the chair. She continues to report shortness of breath. She denies any chest pain or pressure. She underwent left-sided thoracentesis yesterday with removal of 800 cc. Postprocedure chest x-ray revealed trace pneumothorax. Blood pressure is low in the 90s. 09/08/2024 Patient examined this morning at the bedside. Patient currently denies chest pain or pressure. She reports mild shortness of breath. She remains on IV Lasix per pulmonary medicine. Sodium today 129. Potassium 3.3. BUN 34. Creatinine 0.75. 09/09/2024 Changed from high flow nasal cannula to 12 L nasal cannula supplemental oxygen Blood pressure is borderline low Kidney function is stable with borderline low sodium and potassium Appropriate urine output Negative fluid balance of 1100 cc today last 24 hours 09/10/2024 Patient seen and examined at bedside this a.m., kidney function is stable, potassium is 3.4 Still has mild residual lower extremity edema, on 2 L of nasal cannula supplemental oxygen. 09/11 Patient seen and examined. Blood pressure 110/65, heart rate 80. Patient states that she is feeling much better. She denies having a skiver counter prior to this admission. She still has a little edema to the lower extremities but she states this is much better. Blood pressure 107/73, heart rate 79, pulse ox 90% on 12 L high flow nasal cannula. Repeat blood work reveals hemoglobin 16.4. Sodium 128, BUN 39 creatinine 0.76, CO2 38. Yesterday, IV Lasix was transitioned to oral by pulmonary medicine. Patient has a negative fluid balance with documented weight loss of 7 kg. 09/12 Patient states that she is a little bit better today. She states she does not have any chest pain or chest pressure or tightness. She has a little dizzy. Edema to the lower extremities is a little better from yesterday. She has been maintained on oral Lasix and yesterday we decreased the frequency of metolazone to once daily due to drop in sodium. Today sodium is 129, potassium 3.9, BUN 39 creatinine 0.83, hemoglobin 16.6.. Blood pressure 100/70, heart rate 90, pulse ox 88% on 12 L nasal cannula. 09/13 Patient seen and examined. No medication changes were made by us yesterday. Patient is on 12 L high flow nasal cannula with pulse ox of 89% and followed by pulmonary medicine. Blood pressure 113/76, heart rate in the 80s. Repeat blood work reveals WBC 10.8, hemoglobin 16.8, sodium 131, potassium 3.4, BUN 39 creatinine 0.81. Patient states that her breathing is okay. She slept okay last night. She denies chest pain. No cough no wheezing. She does have some nausea. She continues to have some lower extremity edema. 09/14 Patient seen and examined. Patient states that her breathing is okay. She denies chest pain. She slept okay last night. She continues to have a little lower extremity edema. Blood pressure 97/64, heart rate in the 80s and 90s, pulse ox 90% on 9 L high flow nasal cannula. Repeat blood work reveals WBC 15, hemoglobin 18, sodium 130, potassium 4, BUN 43 creatinine 0.84 and CO2 40. Patient has a negative fluid balance with documented weight loss. Telemetry sin us rhythm. No medication changes made today. 09/15 Patient seen and examined. She states that her breathing is about the same. She denies having any nausea at this time. She states she did not sleep well last night. She continues to have lower extremity edema. Patient has been continued on oral Lasix as well as metolazone and Aldactone. Blood pressure 113/72, heart rate in the 80s, pulse ox 92% on high flow nasal cannula at 10 L. Patient has a negative fluid balance with documented weight loss. Repeat blood work reveals sodium 128, potassium 3.4, chloride 77, CO2 45, BUN 40 creatinine 0.73. proBNP 18,000. CTA of the chest performed yesterday afternoon revealed no PE. Persistent but improved subcutaneous. Resolved small right pleural effusion. Persistent small to moderate left pleural effusion. Moderate to advanced emphysematous changes redemonstrated. No acute process. Cardiomegaly. Small to moderate. Size pericardial effusion. Evidence of underlying pulmonary artery hypertension and right-sided heart failure. 09/16/2024 Patient examined this morning at the bedside. Patient is sitting up in the chair. Patient denies chest pain or pressure. She reports mild shortness of breath. She reports improvement in her lower extremity swelling. Vital signs are stable. Blood pressure 96/60. She is on 12 L nasal cannula. Sodium 128. Potassium 2.8. CO2 45. BUN 41. Creatinine 0.72. PHYSICAL EXAM: VITAL SIGNS: Reviewed. GENERAL: Well-developed in no acute distress. NECK: Supple. No JVD or thyromegaly LUNGS: Respirations even and unlabored. Lungs diminished bilaterally HEART: Regular rate and rhythm. S1 and S2 heard. Systolic murmur noted. EXTREMITIES: Normal range of motion. No clubbing or cyanosis. Peripheral pulses intact. 12+ bilateral lower extremity edema ASSESSMENT: Shortness of breath Acute on chronic hypoxic respiratory failure Acute on chronic heart failure with preserved EF Acute Cor pulmonale Moderate pericardial effusion Severe pulmonary hypertension Left pleural effusion, status post thoracentesis with removal 800 cc, 09/06/2024 Trace pneumothorax, post thoracentesis Hyponatremia Hypokalemia PLAN: Continue current cardiac medications including aspirin, Farxiga, Zaroxolyn, Lasix, Aldactone, and potassium supplementation Decrease Zaroxolyn to 2.5 mg daily Supplement potassium Continue to monitor kidney function and electrolytes. Repeat in a.m. Daily weights and accurate intake and output Further recommendations pending patient course Nurse practitioner note has been reviewed by physician. Signing provider agrees with the documented findings, assessment, and plan of care documented by HHA as a scribe. Objective - Vital Signs Vital signs: Vital Signs Temp 97.9 F 09/16/24 09:00 Pulse 87 09/16/24 12:10 Resp 19 09/16/24 12:10 BP 96/60 09/16/24 12:10 Pulse Ox 91 L 09/16/24 12:10 FiO2 70 09/09/24 08:20 Intake & Output 09/15/24 09/16/24 09/16/24 18:59 06:59 18:59 Intake Total 619 110 444 Output Total 1999 1999 600 Balance -1381 -1890 -156 Weight 63.2 kg Intake: Oral 619 110 444 Output: Urine 1999 Other: Voiding Method Bedside Commode Bedside Commode Bedside Commode # Voids 1 1 # Bowel Movements 1 1 - Labs CBC & Chem 7: 09/16/24 05:21 09/16/24 05:21 Labs: Abnormal Lab Results - Last 24 Hours (Table) 09/15/24 09/15/24 09/16/24 Range/Units 16:34 19:53 05:21 WBC 15.33 H (4.50-10.00) 10*3/uL RBC 5.40 H (4.10-5.20) 10*6/uL Hgb 16.5 H (12.0-15.0) g/dL Hct 48.8 H (37.2-46.3) % Immature Gran # 0.14 H (0.00-0.04) 10*3/uL Neutrophils # 14.23 H (1.80-7.70) 10*3/uL Lymphocytes # 0.16 L (0.90-5.00) 10*3/uL Eosinophils # 0.00 L (0.04-0.35) 10*3/uL Sodium (137-145) mmol/L Potassium (3.5-5.1) mmol/L Chloride (98-107) mmol/L Carbon Dioxide (22-30) mmol/L BUN (7-17) mg/dL Glucose (74-99) mg/dL POC Glucose (mg/dL) 237 H 121 H (70-110) mg/dL 09/16/24 09/16/24 09/16/24 Range/Units 05:21 05:57 11:23 WBC (4.50-10.00) 10*3/uL RBC (4.10-5.20) 10*6/uL Hgb (12.0-15.0) g/dL Hct (37.2-46.3) % Immature Gran # (0.00-0.04) 10*3/uL Neutrophils # (1.80-7.70) 10*3/uL Lymphocytes # (0.90-5.00) 10*3/uL Eosinophils # (0.04-0.35) 10*3/uL Sodium 128 L (137-145) mmol/L Potassium 2.8 L (3.5-5.1) mmol/L Chloride 74 L* (98-107) mmol/L Carbon Dioxide 45 H* (22-30) mmol/L BUN 41 H (7-17) mg/dL Glucose 162 H (74-99) mg/dL POC Glucose (mg/dL) 185 H 147 H (70-110) mg/dL
[2024-09-16 16:26] LABS: Glucose,Whole Blood 160 mg/dL (70-110)
[2024-09-16 20:06] LABS: Glucose,Whole Blood 125 mg/dL (70-110)
[2024-09-16] MEDS: methylPREDNISolone SOD SUCCI 40 MG/ML 1 ML VIAL IV SCH (20:27)
--- NOTE | 2024-09-17 05:12 | P.PN ---
Subjective Progress Note Date: 09/16/24 Patient is admitted for multifactorial respiratory failure secondary to CHF COPD with acute exacerbation still having hypoxia patient is on 10 L of oxygen patient has diminished air entry into bilateral lung gupta patient has alpha-1 antitrypsin deficiency leading to severe emphysema usually uses oxygen but patient is on high amount of oxygen at this time patient also has chronic right- sided heart failure with severe pulmonary hypertension and cor pulmonale. Patient had a CT of the chest as we are unable to wean her off oxygen CT did not show any pulmonary embolism but did show some pericardial effusion. 09/15/2024 Patient is evaluated today in the follow up. Sitting up in the chair. Continues with significant peripheral edema and pitting up to the thighs. Continues on oral lasix BID. Urine out 2.2 L so far today. IV lasix x 1 dose given also. Patient continues on 10 L of oxygen via nasal cannula. Labs today reveal sodium 128, potassium 3.4, CO2 45, BNP 18,000. Dr Allan in to see patient today for routine care and trimming of the nails on bilateral feet. 09/16/2024 Patient is evaluated again sitting up in the chair. Patients peripheral edema slightly improved. Over 4L of urine output yesterday. Remains on oral lasix 40 mg BID. Oxygen was increased to 12L hi flow. Labs today reveal white blood cell count 15.33, hgb 16.5, sodium 128, BUN 41, creatinine 0.72. Chloride 74, CO2 45. Review of Systems Constitutional: Denied any fatigue denied any fever. Cardio vascular: denied any chest pain, palpitations Gastrointestinal: denied any nausea, vomiting, diarrhea Pulmonary: Denied any shortness of breath cough Neurologic denied any new focal deficits All inpatient medications were reviewed and appropriate changes in these medications as dictated in the interval history and assessment and plan. PHYSICAL EXAMINATION: GENERAL: The patient is alert and oriented x3, not in any acute distress. Thin built cachectic female HEENT: Pupils are round and equally reacting to light. EOMI. No scleral icterus. No conjunctival pallor. Normocephalic, atraumatic. No pharyngeal erythema. No thyromegaly. CARDIOVASCULAR: S1 and S2 present. No murmurs, rubs, or gallops. PULMONARY: Decreased air entry to bilateral lung gupta ABDOMEN: Soft, nontender, nondistended, normoactive bowel sounds. No palpable organomegaly. MUSCULOSKELETAL: No joint swelling or deformity. EXTREMITIES: No cyanosis, clubbing, +1 pitting lower extremity edema NEUROLOGICAL: Gross neurological examination did not reveal any focal deficits. SKIN: No rashes. Assessment and plan -Acute on chronic hypoxic and hypercapnic respiratory failure secondary to COPD exacerbation right-sided heart failure pulmonary hypertension -Hyponatremia secondary to excessive diuresis - Acute cor pulmonale - Congestive heart failure with preserved ejection fraction or diastolic dysfunction - Severe pulmonary hypertension - Trace pneumothorax with status post thoracentesis - Mild to moderate pericardial effusion - Urinary retention patient has a Alba catheter in place DVT prophylaxis: Patient will be started on low-dose Lovenox Continue oral lasix 40 mg BID and strict intake and output monitoring. IV solumedrol has been decreased to 40 mg [id number]. Wean oxygen as tolerated. Repeat CBC, BMP in the AM. Cardiology and pulmonology following. The impression and plan of care has been dictated by Neli Redding, Nurse Practitioner as directed. Dr. Aeb MD I have performed a history and physical examination and medical decision making of this patient, discussed the same with the dictator, and agree with the dictators assessment and plan as written, documented as a scribe. Based on total visit time, I have performed more than 50% of this visit. Objective - Vital Signs Vital signs: Vital Signs Temp 97.9 F 09/16/24 20:00 Pulse 86 09/17/24 03:51 Resp 16 09/17/24 03:51 BP 91/60 09/17/24 03:51 Pulse Ox 92 L 09/17/24 03:51 FiO2 70 09/09/24 08:20 Intake & Output 09/16/24 09/16/24 09/17/24 06:59 18:59 06:59 Intake Total 110 444 Output Total 1999 2099 1300 Balance -6550 -4716 -1300 Weight 63.2 kg Intake: Oral 110 444 Output: Urine 1999 2099 1300 Other: Voiding Method Bedside Commode Bedside Commode Bedside Commode # Voids 1 # Bowel Movements 1 1 1 - Labs CBC & Chem 7: 09/16/24 05:21 09/16/24 05:21 Labs: Abnormal Lab Results - Last 24 Hours (Table) 09/16/24 09/16/24 09/16/24 Range/Units 05:21 05:21 05:57 WBC 15.33 H (4.50-10.00) 10*3/uL RBC 5.40 H (4.10-5.20) 10*6/uL Hgb 16.5 H (12.0-15.0) g/dL Hct 48.8 H (37.2-46.3) % Immature Gran # 0.14 H (0.00-0.04) 10*3/uL Neutrophils # 14.23 H (1.80-7.70) 10*3/uL Lymphocytes # 0.16 L (0.90-5.00) 10*3/uL Eosinophils # 0.00 L (0.04-0.35) 10*3/uL Sodium 128 L (137-145) mmol/L Potassium 2.8 L (3.5-5.1) mmol/L Chloride 74 L* (98-107) mmol/L Carbon Dioxide 45 H* (22-30) mmol/L BUN 41 H (7-17) mg/dL Glucose 162 H (74-99) mg/dL POC Glucose (mg/dL) 185 H (70-110) mg/dL 09/16/24 09/16/24 09/16/24 Range/Units 11:23 16:23 20:04 WBC (4.50-10.00) 10*3/uL RBC (4.10-5.20) 10*6/uL Hgb (12.0-15.0) g/dL Hct (37.2-46.3) % Immature Gran # (0.00-0.04) 10*3/uL Neutrophils # (1.80-7.70) 10*3/uL Lymphocytes # (0.90-5.00) 10*3/uL Eosinophils # (0.04-0.35) 10*3/uL Sodium (137-145) mmol/L Potassium (3.5-5.1) mmol/L Chloride (98-107) mmol/L Carbon Dioxide (22-30) mmol/L BUN (7-17) mg/dL Glucose (74-99) mg/dL POC Glucose (mg/dL) 147 H 160 H 125 H (70-110) mg/dL Assessment and Plan Time with Patient: Less than 30
[2024-09-17 06:22] LABS: Glucose,Whole Blood 156 mg/dL (70-110)
[2024-09-17 07:23] LABS: Basophils # (A) 0.02 10*3/uL (0.00-0.10); Basophils % (A) 0.1 %; HCT 49.5 % (37.2-46.3); HGB 16.8 g/dL (12.0-15.0); Lymphocytes # (A) 0.22 10*3/uL (0.90-5.00); Lymphocytes % (A) 1.1 %; MCH 30.7 pg (27.0-32.0); MCHC 33.9 g/dL (32.0-37.0); MCV 90.5 fL (80.0-97.0); Mean Platelet Volume 10.6 fL (9.5-12.2); Monocytes # (A) 1.03 10*3/uL (0.20-1.00); Neutrophils # (A) 19.06 10*3/uL (1.80-7.70); Neutrophils % (A) 93.1 %; Platelet Count 229 10*3/uL (140-440); RBC 5.47 10*6/uL (4.10-5.20); RDW 15.9 % (11.5-14.5); WBC 20.47 10*3/uL (4.50-10.00)
[2024-09-17 07:45] LABS: African American GFR (CKD) 87 (>60 ml/min/1.73 sqM); Blood Urea Nitrogen 44 mg/dL (7-17); Calcium 9.9 mg/dL (8.4-10.2); Glucose 122 mg/dL (74-99); Non-African American GFR(CKD) 76 (>60 ml/min/1.73 sqM); Potassium 2.9 mmol/L (3.5-5.1); Sodium 128 mmol/L (137-145)
[2024-09-17 07:52] LABS: Anion Gap 7 mmol/L
[2024-09-17 07:58] LABS: Chloride 73 mmol/L (98-107)
[2024-09-17 07:59] LABS: Carbon Dioxide 48 mmol/L (22-30)
[2024-09-17] MEDS: POTASSIUM CHLORIDE ER 20 MEQ TAB.ER PO ONE (09:37)
[2024-09-17] MEDS: metOLazone 2.5 MG TAB PO SCH (09:40)
[2024-09-17 11:25] LABS: Glucose,Whole Blood 96 mg/dL (70-110)
--- NOTE | 2024-09-17 11:42 | P.PN ---
Subjective Progress Note Date: 09/17/24 Principal diagnosis: Acute on chronic hypoxic respiratory failure, multifactorial This is an 78-year-old female patient with no prior cardiac history but medical history significant for chronic hypoxic respiratory failure secondary to COPD and alpha 1 antitrypsin deficiency presented to the hospital with progressive exertional dyspnea associated with progressive bilateral lower extremity edema for the last few days. No symptoms of chest pain or chest discomfort but she felt she was experiencing severe congestions with no fever and no chills and no cough and no sputum production. No other cardiovascular symptoms of dizziness or lightheadedness or any feeling of heart racing or fluttering or presyncope or syncope. She developed severe bilateral lower extremities edema. When she presented to the hospital she was hypoxic requiring high flow oxygen. Normally she is on 2 L of oxygen continuously. Definitely her oxygen requirement has increased within the last few days and she has been doing pulse oximetry at home and noticed that her oxygen saturation has been low. She underwent further evaluation including EKG showing RBBB. NT proBNP came to be elevated at 5000. First set of troponin is unremarkable with chest x-ray showed finding consistent with pulmonary vascular congestions and left pleural effusion but CT scan of the chest showed no evidence of PE. Venous duplex study showed no evidence of DVT as well. The physical examination is remarkable for regular rhythm with a systolic murmur at the right and left upper sternal border with diminished br eathing sounds bilaterally and bilateral rhonchi and severe bilateral lower extremities pitting edema. I initially saw this patient in my office. She was hypoxic and she was in significant volume overload with extensive lower extremity edema. I directed this patient to the Emergency Department. After being in the hospital for around 3 days, the patient remained hypoxic and the patient remains on Airvo at 45 L with an FiO2 of 65%. Based on that, a pulmonary consultation was requested. I reviewed the CT of the chest that was done on this patient. The patient has extensive emphysematous changes bilaterally and the patient also has a moderate-sized left-sided pleural effusion. No airspace disease. No consolidation. No pneumonias. There is also a new moderate to small size pericardial effusion. Echocardiogram was completed on 08/31/2024 and the patient was found to have a preserved LV function with an EF of around 65% and the patient also had severe RV dilatation, reduced RV global systolic function and severe pulmonary hypertension along with moderate pericardial effusion without signs of any tamponade. The patient had severe tricuspid regurgitation. Estimated right ventricular systolic pressure was 94. For now, the patient is on Lasix 40 mg IV every 12 hours. Monitoring her fluid balance has been essentially negative and the patient has been -2.2 L over the past 24 hours. Most recent electrolytes show a sodium level of 132, potassium of 3.6, BUN 31 with a creatinine 0.7. The white cell count is at 8.8 with a hemoglobin 17.3. She is currently on Lasix 40 mg IV every 12 hours. She is also on Aldactone 25 mg p.o. daily. She remains on IV heparin. The procal citonin level was 0.08. Troponins were nonelevated. On 09/05/2024, the patient is being seen for a follow-up. The patient is calm and comfortable. The patient is currently on Airvo 45 L with an FiO2 of 65%. She remains on Bumex 1 mg p.o. twice daily and Aldactone 25 mg p.o. daily. She has been diuresing well over the past several days and the patient has been negative fluid balance of 1.1 L over the past 24 hours. No significant shortness of breath at rest. Continues to have significant amount of edema lower extremities bilaterally. The white cell count is at 8.4 with a hemoglobin 17.4 and a platelet count of 167. BUN is 30 with a creatinine of of 0.7. Sodium level is at 132 and a potassium level is at 3.5. Viral screen was negative. Chest x-ray from yesterday was consistent with COPD with chronic emphysematous changes and cardiomegaly and small left-sided pleural effusion. The patient also was noted to have a moderate-sized pericardial effusion without signs of tamponade. The patient was taken off the IV Lasix and the patient was started on Bumex in combination with Aldactone. 09/06/2024, the patient remains on Airvo 45 L with FiO2 of 50%. The fluid balance has been +125 cc over the past 24 hours. Based on that, making recommendations to start the patient on Lasix drip at 5 mg an hour. She continues to have significant amount of edema lower extremities bilaterally. Further workup was ordered by the medical group including a Doppler of lower extremity that showed no evidence of any DVT and CTA of the chest that showed no evidence of any pulmonary embolism. There was extensive bilateral severe emphysematous changes and a chronic left-sided pleural effusion. Based on that, I performed a bedside thoracentesis this patient and I drained approximately 800 cc of pleural fluid from the left lung. The patient tolerated the procedure well without any complications. The fluid will be sent for analysis. The white cell count is 8.4, hemoglobin is 17.4 and platelet count of 167. BUN is 30 with a creatinine of 0.7 and sodium is at 132 and a potassium level is at 3.5. 09/07/2024, the patient is being seen for a follow-up. The patient remains on Airvo at 45 L and FiO2 of 65%. Pulse ox is in the order of 92%. Remains dependent on high flow oxygen. She continues to diurese with Lasix drip at 5 mg an hour. She is postthoracentesis and a total of 800 cc of pleural fluid was aspirated from the left lung. The pleural fluid was a transudate. The chemi stry that showed low LDH and low protein. The white cell count was also low with a lymphocytic predominance. The patient has no specific complaints. The white cell count is at 5.6, hemoglobin is 16.6 and a platelet count is at 153. Sodium is at 130, BUN 29 with a creatinine of 0.7. K level is at 3.4. Remains on DuoNeb updrafts. Will start IV Solu-Medrol. 09/08/2024, the patient is being seen for a follow-up. Remains on Airvo 40 L and FiO2 of 65%. Currently on Lasix drip at 5 mg an hour. Also on Zaroxolyn 5 mg p.o. twice a day.. She is also on a combination of bronchodilators and IV Solu- Medrol. Unfortunately, no significant improvement in oxygenation over the past 24 hours and will continue to monitor. The white cell count of 9.5, hemoglobin is at 15.6 and a platelet count of 156. Sodium levels at 129, potassium level 3.3. BUN is 34 with a creatinine of 0.7. Procalcitonin level is at 0.08. Cortisol level is at 32. Pleural fluid aspirated from the left lung was consistent with a transudate. On 09/09/2024, the patient was taken off the Airvo and the patient was placed on 12 L of oxygen by nasal cannula. Current pulse ox is around 88%. She is calm and comfortable. Denies having any new complaints. I am not sure if the patient is having accurate input output measurement. Nevertheless, based on the fluid balance, she is +500 cc over the past 24 hours. She is off the Lasix drip and the patient is currently receiving Lasix 40 mg IV every 12 hours. She is also on Zaroxolyn 5 mg p.o. twice a day. He is also on Aldactone 25 mg p.o. daily. Doing well. Afebrile. Hemodynamically stable. Blood work from today shows a white cell count of 10.3, hemoglobin of 15 and a platelet count of 176. BUN 36 with a creatinine of 0.7. Sodium level is at 128. No other significant events otherwise for now. 09/10/2024, the patient is doing well on 12 L of oxygen by nasal cannula. Pulse ox is ranging between 88 to 92%. No specific complaints. She still diuresing with a combination of Zaroxolyn and IV Lasix. There is some residual lower extremity edema. The white cell count of 8.7 with a hemoglobin of 6.4 and a platelet count of 161. Patient also has a stable level of 127, potassium level of 3.4,, chloride 86, BUN is 40 with a creatinine of 0.6. Patient was seen today on 09/11/2024, remains on the cardiac floor, remains on 12 L high flow nasal cannula, O2 saturation is 92%. Patient has been diuresing wit different diuretics including Zaroxolyn and Lasix, does not seem to be in distress Patient had thoracentesis done by Dr. San about 5 days ago, cytology was negative for malignancy, fluid was mostly transudative in nature. WBC is 9.3 hemoglobin 16.4 electrolytes are relatively normal except of sodium 128, BUN is 39 creatinine 0.76 hemodynamically the patient is stable, clinically she feels better, breathing easier, still being followed by many consultants including cardiology, patient is responding to diuretics but nonetheless she still requiring significant amount of FiO2. Patient was seen today on 09/12/2024, patient is feeling better today, less shortness of breath, no chest pain, no chest pressure, no tightness, patient remains on diuretics, she is on oral Lasix, cardiology is handling diuretics patient had a follow-up chest x-ray with small recurrent left pleural effusion noted, some atelectasis, patient is still requiring relatively high FiO2, on 12 L nasal cannula. No plans to perform thoracentesis on this patient since the size of the fluid is #1 way too small, and patient had previous thoracentesis the fluid was transudative in nature. CT angiogram of the chest on admission showed no evidence of pulmonary embolism on this patient. Seen today on09/13/24, patient is clinically feeling better, however she remains on high FiO2 at 12 L, O2 sat show is marginal. Chest x-ray showed small left pleural effusion, previous CT angiogram of the chest to rule out pulmonary embolism patient remains on diuretics, she does have pulmonary hypertension, overall not much of a change in the last few days. Basically about the same. However she could not be discharged home on 12 L nasal cannula and we are continuing diuretics. Also on bronchodilators Patient was seen today , clinically improving but her FiO2 requirement remains high on 12 L high flow nasal cannula titrated down to 9 L and maintain her O2 saturation in the low 90s. Patient has very minimal small left pleural effusion to explain her profound hypoxia, hence today I recommended a CT angiogram on this patient. And this is pending. My index of suspicion for pulmonary embolism is rather low but considering her ongoing hypoxia it is best to be safe and address that accordingly. She did have CT angiogram on her initial presentation and that was negative for PE. WBC count 15.17 hemoglobin is 18.2 electrolytes are normal renal profile is relatively normal bicarb is 40. Patient was seen today on 09/15/2024, patient remains about the same, clinically better but still requiring high O2 flow, she is now on 10 L high flow nasal cannula, CT angiogram of the chest showed no evidence of pulmonary embolism, the effusion is very small, and clearly not contributing to her hypoxia much. Patient remains on diuretics, remains on bronchodilators, clinically better but still requiring high FiO2. Labs today were reviewed bicarb is 45 renal profile is normal sodium is 128 Seen today on 09/16/2024, basically about the same, remains on high flow nasal cannula at 12 L today, O2 sats is marginal, patient does not seem to be showing any significant improvement whatsoever. Clinically she seems to be comfortable, and not in distress. WBC is 15.3 hemoglobin 16.5 electrolytes are abnormal with low sodium low potassium low chloride elevated bicarb, BUN is 41 creatinine 0.72, electrolytes are being addressed by admitting physician. Seen today on 09/17/2024, she is now on 10 L high flow nasal cannula, remains marginal at best, patient is not symptomatic, but she desaturates easily down to the 80s when her FiO2 is below 10 L. Patient is comfortable, remains on diuretics, remains on bronchodilators, remains on steroids, not much of a change has been noticed over the last 1 week. WBC count is 20.47 hemoglobin 16.8 sodium is low at 128 potassium 2.9 bicarb is 48. Is 44 creatinine 0.75 Objective - Vital Signs Vital signs: Vital Signs Temp 97.4 F L 09/17/24 08:04 Pulse 92 09/17/24 08:55 Resp 16 09/17/24 08:04 BP 93/57 09/17/24 08:04 Pulse Ox 92 L 09/17/24 03:51 FiO2 70 09/09/24 08:20 Intake & Output 09/16/24 09/17/24 09/17/24 18:59 06:59 18:59 Intake Total 444 222 Output Total 2100 1800 300 Balance -1656 -1800 -78 Weight 60.6 kg Intake: Oral 444 222 Output: Urine 2100 1800 300 Other: Voiding Method Bedside Commode Bedside Commode Bedside Commode # Bowel Movements 1 1 - Exam GENERAL: Revealed 78-year-old female in no distress on 10 L high flow nasal cannula Head: Atraumatic normocephalic NECK: Supple. + JVD, no thyromegaly LUNGS: Diminished breath sounds at the bases, more so at the left base. No rhonchi no wheezes no crackles HEART: Distant S1-S2, no S3 gallop, 2/6 systolic murmur throughout the precordium Abdomen: Soft nontender No rebound Extremities no clubbing 1+ bipedal edema or cyanosis Neurologic: Alert oriented x 3 no gross focal deficit Psychiatric: Normal mood affect and no mental status examination Skin: No rashes - Labs CBC & Chem 7: 09/17/24 06:02 09/17/24 06:02 Labs: Abnormal Lab Results - Last 24 Hours (Table) 09/16/24 09/16/24 09/17/24 Range/Units 16:23 20:04 06:02 WBC (4.50-10.00) 10*3/uL RBC (4.10-5.20) 10*6/uL Hgb (12.0-15.0) g/dL Hct (37.2-46.3) % Immature Gran # (0.00-0.04) 10*3/uL Neutrophils # (1.80-7.70) 10*3/uL Lymphocytes # (0.90-5.00) 10*3/uL Monocytes # (0.20-1.00) 10*3/uL Eosinophils # (0.04-0.35) 10*3/uL Sodium 128 L (137-145) mmol/L Potassium 2.9 L (3.5-5.1) mmol/L Chloride 73 L* (98-107) mmol/L Carbon Dioxide 48 H* (22-30) mmol/L BUN 44 H (7-17) mg/dL Glucose 122 H (74-99) mg/dL POC Glucose (mg/dL) 160 H 125 H (70-110) mg/dL 09/17/24 09/17/24 Range/Units 06:02 06:20 WBC 20.47 H (4.50-10.00) 10*3/uL RBC 5.47 H (4.10-5.20) 10*6/uL Hgb 16.8 H (12.0-15.0) g/dL Hct 49.5 H (37.2-46.3) % Immature Gran # 0.14 H (0.00-0.04) 10*3/uL Neutrophils # 19.06 H (1.80-7.70) 10*3/uL Lymphocytes # 0.22 L (0.90-5.00) 10*3/uL Monocytes # 1.03 H (0.20-1.00) 10*3/uL Eosinophils # 0.00 L (0.04-0.35) 10*3/uL Sodium (137-145) mmol/L Potassium (3.5-5.1) mmol/L Chloride (98-107) mmol/L Carbon Dioxide (22-30) mmol/L BUN (7-17) mg/dL Glucose (74-99) mg/dL POC Glucose (mg/dL) 156 H (70-110) mg/dL Assessment and Plan Assessment: A impression: acute on chronic hypoxic respiratory failure Acute on chronic heart failure with preserved EF Chronic right-sided heart failure with severe pulmonary hypertension Acute Cor pulmonale Moderate pericardial effusion Severe pulmonary hypertension Left pleural effusion, status post thoracentesis with removal 800 cc, 09/06/2024 Trace pneumothorax, post thoracentesis History of panic attacks and generalized anxiety disorder History of gout Urinary retention requiring urology placement of Alba catheter Hyponatremia secondary to diuretics Recommendation: Continue to titrate oxygen, the goal is to get her down to at least 5 L that we could arrange for discharge from the hospital. Continue diuretics Continue steroids Continue bronchodilators Prognosis is guarded considering her multiple complex issues Will continue to follow. CODE STATUS remains DNR/DNI Time with Patient: Less than 30
--- NOTE | 2024-09-17 12:05 | P.PN ---
Subjective HISTORY OF PRESENT ILLNESS: This is an 78-year-old female patient with no prior cardiac history but medical history significant for chronic hypoxic respiratory failure secondary to COPD and alpha 1 antitrypsin deficiency presented to the hospital with progressive exertional dyspnea associated with progressive bilateral lower extremity edema for the last few days. No symptoms of chest pain or chest discomfort but she felt she was experiencing severe congestions with no fever and no chills and no cough and no sputum production. No other cardiovascular symptoms of dizziness or lightheadedness or any feeling of heart racing or fluttering or presyncope or syncope. She developed severe bilateral lower extremities edema. When she presented to the hospital she was hypoxic requiring high flow oxygen. Normally she is on 2 L of oxygen continuously. Definitely her oxygen requirement has increased within the last few days and she has been doing pulse oximetry at home and noticed that her oxygen saturation has been low. She underwent further evaluation including EKG showing RBBB. NT proBNP came to be elevated at 5000. First set of troponin is unremarkable with chest x-ray showed finding consistent with pulmonary vascular congestions and left pleural effusion but CT scan of the chest showed no evidence of PE. Venous duplex study showed no evidence of DVT as well. The physical examination is remarkable for regular rhythm with a systolic murmur at the right and left upper sternal border with diminished breathing sounds bilaterally and bilateral rhonchi and severe bilateral lower extremities pitting edema September 01, 2024 The patient was seen and evaluated this morning. She is overall feeling better. She still have bilateral lower extremities edema. The pressure remains marginal but appears to be better today which she was started on midodrine yesterday. Am going to stop the midodrine and decrease the dose of Lasix from 40 mg IV twice daily to 20 mg IV twice daily giving the marginally low blood pressure and also giving the finding on the echo including severe pulmonary hypertension and moderate pericardial effusion without tamponade physiology. The physical examination is remarkable for bilateral lower extremities edema. The troponin came to be mildly abnormal and I would consider medical treatment in the absence of any chest pain. September 02, 2024 The patient was seen and evaluated this morning. She is still hypoxic requiring high flow oxygen she still have severe bilateral lower extremities edema. Her pressure is better and with that I am going to increase the dose of Lasix to 40 mg IV twice daily which she is hypokalemic and the potassium is in process to be replaced. The physical examination is remarkable for diminished breathing sounds bilaterally and severe bilateral lower extremities edema. September 03, 2024 The patient was seen and evaluated this morning. The bilateral lower extremitie s edema has somewhat improved but continues to be there. She is on Lasix IV. I would suggest continue the current dose of Lasix IV and will follow-up with the blood work from the morning which is still pending. Otherwise she remains hemodynamically stable. No symptoms of chest pain or chest discomfort. The physical examination is remarkable for moderate bilateral lower extremities pitting edema with diminished breathing sounds bilaterally. Definitely the edema has improved after we increase the dose of Lasix yesterday. 09/04/2024 Patient is seen and examined at bedside this a.m. She is sitting in the chair with a high flow nasal cannula oxygen. 2+ pitting edema bilateral lower extrem ity, mild crackles in lung gupta, minimal wheezing. Alert oriented, reports that symptomatically she feels better since the time for admission. Blood pressure is borderline low with SBP around 90s to 100 mmHg. 09/05/2024 Patient is seen and examined at bedside this a.m. She continues to be on high flow nasal cannula 1-2+ pitting edema bilateral extremity with mild crackles in lung gupta with minimal wheezing Alert oriented Reports symptomatically feeling better. Blood pressure and heart rates are within acceptable ranges kidney function and electrolytes are within acceptable ranges. 09/06/2024 Patient examined this morning at the bedside. She remains on Airvo. She continues to report shortness of breath. She is currently on oral Bumex. She also is complaining of her left knee hurting. Repeat limited echo reveals severe right ventricular and right atrial enlargement, dilated IVC, moderate pericardial effusion mostly anterior. Venous Doppler completed negative for DVT. Patient underwent chest CTA which was negative for pulmonary embolism. Evidence of right heart strain, pulmonary hypertension with bilateral pleural effusions, pulmonary vascular congestion, and cardiomegaly. Moderate to severe emphysema. 09/07/2024 Patient examined this morning at the bedside. She is sitting up in the chair. She continues to report shortness of breath. She denies any chest pain or pressure. She underwent left-sided thoracentesis yesterday with removal of 800 cc. Postprocedure chest x-ray revealed trace pneumothorax. Blood pressure is low in the 90s. 09/08/2024 Patient examined this morning at the bedside. Patient currently denies chest pain or pressure. She reports mild shortness of breath. She remains on IV Lasix per pulmonary medicine. Sodium today 129. Potassium 3.3. BUN 34. Creatinine 0.75. 09/09/2024 Changed from high flow nasal cannula to 12 L nasal cannula supplemental oxygen Blood pressure is borderline low Kidney function is stable with borderline low sodium and potassium Appropriate urine output Negative fluid balance of 1100 cc today last 24 hours 09/10/2024 Patient seen and examined at bedside this a.m., kidney function is stable, potassium is 3.4 Still has mild residual lower extremity edema, on 2 L of nasal cannula supplemental oxygen. 09/11 Patient seen and examined. Blood pressure 110/65, heart rate 80. Patient states that she is feeling much better. 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 She still has a little edema to the lower extremities but she states this is much better. Blood pressure 107/73, heart rate 79, pulse ox 90% on 12 L high flow nasal cannula. Repeat blood work reveals hemoglobin 16.4. Sodium 128, BUN 39 creatinine 0.76, CO2 38. Yesterday, IV Lasix was transitioned to oral by pulmonary medicine. Patient has a negative fluid balance with documented weight loss of 7 kg. 09/12 Patient states that she is a little bit better today. She states she does not have any chest pain or chest pressure or tightness. She has a little dizzy. Edema to the lower extremities is a little better from yesterday. She has been maintained on oral Lasix and yesterday we decreased the frequency of metolazone to once daily due to drop in sodium. Today sodium is 129, potassium 3.9, BUN 39 creatinine 0.83, hemoglobin 16.6.. Blood pressure 100/70, heart rate 90, pulse ox 88% on 12 L nasal cannula. 09/13 Patient seen and examined. No medication changes were made by us yesterday. Patient is on 12 L high flow nasal cannula with pulse ox of 89% and followed by pulmonary medicine. Blood pressure 113/76, heart rate in the 80s. Repeat blood work reveals WBC 10.8, hemoglobin 16.8, sodium 131, potassium 3.4, BUN 39 creatinine 0.81. Patient states that her breathing is okay. She slept okay last night. She denies chest pain. No cough no wheezing. She does have some nausea. She continues to have some lower extremity edema. 09/14 Patient seen and examined. Patient states that her breathing is okay. She denies chest pain. She slept okay last night. She continues to have a little lower extremity edema. Blood pressure 97/64, heart rate in the 80s and 90s, pulse ox 90% on 9 L high flow nasal cannula. Repeat blood work reveals WBC 15, hemoglobin 18, sodium 130, potassium 4, BUN 43 creatinine 0.84 and CO2 40. Patient has a negative fluid balance with documented weight loss. Telemetry sin us rhythm. No medication changes made today. 09/15 Patient seen and examined. She states that her breathing is about the same. She denies having any nausea at this time. She states she did not sleep well last night. She continues to have lower extremity edema. Patient has been continued on oral Lasix as well as metolazone and Aldactone. Blood pressure 113/72, heart rate in the 80s, pulse ox 92% on high flow nasal cannula at 10 L. Patient has a negative fluid balance with documented weight loss. Repeat blood work reveals sodium 128, potassium 3.4, chloride 77, CO2 45, BUN 40 creatinine 0.73. proBNP 18,000. CTA of the chest performed yesterday afternoon revealed no PE. Persistent but improved subcutaneous. Resolved small right pleural effusion. Persistent small to moderate left pleural effusion. Moderate to advanced emphysematous changes redemonstrated. No acute process. Cardiomegaly. Small to moderate. Size pericardial effusion. Evidence of underlying pulmonary artery hypertension and right-sided heart failure. 09/16/2024 Patient examined this morning at the bedside. Patient is sitting up in the chair. Patient denies chest pain or pressure. She reports mild shortness of breath. She reports improvement in her lower extremity swelling. Vital signs are stable. Blood pressure 96/60. She is on 12 L nasal cannula. Sodium 128. Potassium 2.8. CO2 45. BUN 41. Creatinine 0.72. 09/17/2024 Patient examined this morning. Patient is sitting up in the chair. Patient denies chest pain or pressure. She continues to report shortness of breath, unchanged from yesterday. She continues to have lower extremity edema. Patient remains on oral Lasix. Sodium 128. Potassium 2.9. PHYSICAL EXAM: VITAL SIGNS: Reviewed. GENERAL: Well-developed in no acute distress. NECK: Supple. No JVD or thyromegaly LUNGS: Respirations even and unlabored. Lungs diminished bilaterally HEART: Regular rate and rhythm. S1 and S2 heard. Systolic murmur noted. EXTREMITIES: Normal range of motion. No clubbing or cyanosis. Peripheral pulses intact. 12+ bilateral lower extremity edema ASSESSMENT: Shortness of breath Acute on chronic hypoxic respiratory failure Acute on chronic heart failure with preserved EF Acute Cor pulmonale Moderate pericardial effusion Severe pulmonary hypertension Left pleural effusion, status post thoracentesis with removal 800 cc, 09/06/2024 Trace pneumothorax, post thoracentesis Hyponatremia Hypokalemia PLAN: Continue current cardiac medications including aspirin, Farxiga, Lasix, Aldactone, and potassium supplementation Discontinue Zaroxolyn Supplement potassium Continue to monitor kidney function and electrolytes. Repeat in a.m. Daily weights and accurate intake and output Further recommendations pending patient course Nurse practitioner note has been reviewed by physician. Signing provider agrees with the documented findings, assessment, and plan of care documented by LEAD NURSE as a scribe. Objective - Vital Signs Vital signs: Vital Signs Temp 97.4 F L 09/17/24 08:04 Pulse 88 09/17/24 12:01 Resp 16 09/17/24 08:04 BP 93/57 09/17/24 08:04 Pulse Ox 92 L 09/17/24 03:51 FiO2 70 09/09/24 08:20 Intake & Output 09/16/24 09/17/24 09/17/24 18:59 06:59 18:59 Intake Total 444 222 Output Total 2100 1800 300 Balance -1656 -1800 -78 Weight 60.6 kg Intake: Oral 444 222 Output: Urine 2100 1800 300 Other: Voiding Method Bedside Commode Bedside Commode Bedside Commode # Bowel Movements 1 1 - Labs CBC & Chem 7: 09/17/24 06:02 09/17/24 06:02 Labs: Abnormal Lab Results - Last 24 Hours (Table) 09/16/24 09/16/24 09/17/24 Range/Units 16:23 20:04 06:02 WBC (4.50-10.00) 10*3/uL RBC (4.10-5.20) 10*6/uL Hgb (12.0-15.0) g/dL Hct (37.2-46.3) % Immature Gran # (0.00-0.04) 10*3/uL Neutrophils # (1.80-7.70) 10*3/uL Lymphocytes # (0.90-5.00) 10*3/uL Monocytes # (0.20-1.00) 10*3/uL Eosinophils # (0.04-0.35) 10*3/uL Sodium 128 L (137-145) mmol/L Potassium 2.9 L (3.5-5.1) mmol/L Chloride 73 L* (98-107) mmol/L Carbon Dioxide 48 H* (22-30) mmol/L BUN 44 H (7-17) mg/dL Glucose 122 H (74-99) mg/dL POC Glucose (mg/dL) 160 H 125 H (70-110) mg/dL 09/17/24 09/17/24 Range/Units 06:02 06:20 WBC 20.47 H (4.50-10.00) 10*3/uL RBC 5.47 H (4.10-5.20) 10*6/uL Hgb 16.8 H (12.0-15.0) g/dL Hct 49.5 H (37.2-46.3) % Immature Gran # 0.14 H (0.00-0.04) 10*3/uL Neutrophils # 19.06 H (1.80-7.70) 10*3/uL Lymphocytes # 0.22 L (0.90-5.00) 10*3/uL Monocytes # 1.03 H (0.20-1.00) 10*3/uL Eosinophils # 0.00 L (0.04-0.35) 10*3/uL Sodium (137-145) mmol/L Potassium (3.5-5.1) mmol/L Chloride (98-107) mmol/L Carbon Dioxide (22-30) mmol/L BUN (7-17) mg/dL Glucose (74-99) mg/dL POC Glucose (mg/dL) 156 H (70-110) mg/dL
[2024-09-17 15:58] LABS: Glucose,Whole Blood 119 mg/dL (70-110)
[2024-09-17 20:00] LABS: Glucose,Whole Blood 140 mg/dL (70-110)
[2024-09-17 20:06] LABS: Carbon Dioxide 45 mmol/L (22-30)
[2024-09-17] MEDS: POTASSIUM CHLORIDE ER 20 MEQ TAB.ER PO STA (21:22)
[2024-09-18 05:04] LABS: Basophils # (A) 0.03 10*3/uL (0.00-0.10); Basophils % (A) 0.2 %; HCT 45.3 % (37.2-46.3); HGB 15.7 g/dL (12.0-15.0); Lymphocytes # (A) 0.22 10*3/uL (0.90-5.00); Lymphocytes % (A) 1.1 %; MCH 31.2 pg (27.0-32.0); MCHC 34.7 g/dL (32.0-37.0); MCV 90.1 fL (80.0-97.0); Mean Platelet Volume 10.6 fL (9.5-12.2); Monocytes # (A) 1.02 10*3/uL (0.20-1.00); Monocytes % (A) 5.3 %; Neutrophils # (A) 17.72 10*3/uL (1.80-7.70); Neutrophils % (A) 92.6 %; Platelet Count 231 10*3/uL (140-440); RBC 5.03 10*6/uL (4.10-5.20); RDW 15.8 % (11.5-14.5); WBC 19.14 10*3/uL (4.50-10.00)
[2024-09-18 05:22] LABS: African American GFR (CKD) >90 (>60 ml/min/1.73 sqM); Blood Urea Nitrogen 46 mg/dL (7-17); Calcium 9.6 mg/dL (8.4-10.2); Chloride 76 mmol/L (98-107); Glucose 120 mg/dL (74-99); Magnesium 1.8 mg/dL (1.6-2.3); Non-African American GFR(CKD) 83 (>60 ml/min/1.73 sqM); Potassium 3.8 mmol/L (3.5-5.1); Sodium 129 mmol/L (137-145)
[2024-09-18 05:29] LABS: Anion Gap 4 mmol/L
[2024-09-18 05:30] LABS: Carbon Dioxide 49 mmol/L (22-30)
[2024-09-18 06:09] LABS: Glucose,Whole Blood 128 mg/dL (70-110)
--- NOTE | 2024-09-18 09:28 | P.PN ---
Subjective Progress Note Date: 09/17/24 Patient is admitted for multifactorial respiratory failure secondary to CHF COPD with acute exacerbation still having hypoxia patient is on 10 L of oxygen patient has diminished air entry into bilateral lung gupta patient has alpha-1 antitrypsin deficiency leading to severe emphysema usually uses oxygen but patient is on high amount of oxygen at this time patient also has chronic right- sided heart failure with severe pulmonary hypertension and cor pulmonale. Patient had a CT of the chest as we are unable to wean her off oxygen CT did not show any pulmonary embolism but did show some pericardial effusion. 09/15/2024 Patient is evaluated today in the follow up. Sitting up in the chair. Continues with significant peripheral edema and pitting up to the thighs. Continues on oral lasix BID. Urine out 2.2 L so far today. IV lasix x 1 dose given also. Patient continues on 10 L of oxygen via nasal cannula. Labs today reveal sodium 128, potassium 3.4, CO2 45, BNP 18,000. Dr Allan in to see patient today for routine care and trimming of the nails on bilateral feet. 09/16/2024 Patient is evaluated again sitting up in the chair. Patients peripheral edema slightly improved. Over 4L of urine output yesterday. Remains on oral lasix 40 mg BID. Oxygen was increased to 12L hi flow. Labs today reveal white blood cell count 15.33, hgb 16.5, sodium 128, BUN 41, creatinine 0.72. Chloride 74, CO2 45. 09/17/2024 Patient is evaluated today sitting up in the chair. Patient continues with peripheral edema. Remains on 10 L of oxygen via nasal cannula. Not having any significant complaints. On fluid restriction 1200 CC. Labs today reveal white blood cell count of 20.47, hgb 16.8, sodium 128, potassium 3.4, CO2 48, chloride 73,. Review of Systems Constitutional: Denied any fatigue denied any fever. Cardio vascular: denied any chest pain, palpitations Gastrointestinal: denied any nausea, vomiting, diarrhea Pulmonary: Denied any shortness of breath cough Neurologic denied any new focal deficits All inpatient medications were reviewed and appropriate changes in these medications as dictated in the interval history and assessment and plan. PHYSICAL EXAMINATION: GENERAL: The patient is alert and oriented x3, not in any acute distress. Thin built cachectic female HEENT: Pupils are round and equally reacting to light. EOMI. No scleral icterus. No conjunctival pallor. Normocephalic, atraumatic. No pharyngeal erythema. No thyromegaly. CARDIOVASCULAR: S1 and S2 present. No murmurs, rubs, or gallops. PULMONARY: Decreased air entry to bilateral lung gupta ABDOMEN: Soft, nontender, nondistended, normoactive bowel sounds. No palpable organomegaly. MUSCULOSKELETAL: No joint swelling or deformity. EXTREMITIES: No cyanosis, clubbing, +1 pitting lower extremity edema NEUROLOGICAL: Gross neurological examination did not reveal any focal deficits. SKIN: No rashes. Assessment and plan -Acute on chronic hypoxic and hypercapnic respiratory failure secondary to COPD exacerbation right-sided heart failure pulmonary hypertension -Hyponatremia secondary to excessive diuresis - Acute cor pulmonale - Congestive heart failure with preserved ejection fraction or diastolic dysfunction - Severe pulmonary hypertension - Trace pneumothorax with status post thoracentesis - Mild to moderate pericardial effusion - Urinary retention patient has a Alba catheter in place DVT prophylaxis: Patient will be started on low-dose Lovenox Continue oral lasix 40 mg BID and strict intake and output monitoring. IV solumedrol has been decreased to 40 mg [id number]. Wean oxygen as tolerated. Repeat CBC, BMP in the AM. Cardiology and pulmonology following. The impression and plan of care has been dictated by Neli Redding, Nurse Practitioner as directed. Dr. Abe MD I have performed a history and physical examination and medical decision making of this patient, discussed the same with the dictator, and agree with the dictators assessment and plan as written, documented as a scribe. Based on total visit time, I have performed more than 50% of this visit. Objective - Vital Signs Vital signs: Vital Signs Temp 97.4 F L 09/17/24 08:04 Pulse 88 09/17/24 12:01 Resp 18 09/17/24 12:00 BP 97/67 09/17/24 12:00 Pulse Ox 94 L 09/17/24 12:00 FiO2 70 09/09/24 08:20 Intake & Output 09/16/24 09/17/24 09/17/24 18:59 06:59 18:59 Intake Total 444 222 Output Total 2100 1800 300 Balance -1656 -1800 -78 Weight 60.6 kg Intake: Oral 444 222 Output: Urine 2100 1800 300 Other: Voiding Method Bedside Commode Bedside Commode Bedside Commode # Bowel Movements 1 1 - Labs CBC & Chem 7: 09/18/24 04:31 09/18/24 04:31 Labs: Abnormal Lab Results - Last 24 Hours (Table) 09/16/24 09/16/24 09/17/24 Range/Units 16:23 20:04 06:02 WBC (4.50-10.00) 10*3/uL RBC (4.10-5.20) 10*6/uL Hgb (12.0-15.0) g/dL Hct (37.2-46.3) % Immature Gran # (0.00-0.04) 10*3/uL Neutrophils # (1.80-7.70) 10*3/uL Lymphocytes # (0.90-5.00) 10*3/uL Monocytes # (0.20-1.00) 10*3/uL Eosinophils # (0.04-0.35) 10*3/uL Sodium 128 L (137-145) mmol/L Potassium 2.9 L (3.5-5.1) mmol/L Chloride 73 L* (98-107) mmol/L Carbon Dioxide 48 H* (22-30) mmol/L BUN 44 H (7-17) mg/dL Glucose 122 H (74-99) mg/dL POC Glucose (mg/dL) 160 H 125 H (70-110) mg/dL 09/17/24 09/17/24 Range/Units 06:02 06:20 WBC 20.47 H (4.50-10.00) 10*3/uL RBC 5.47 H (4.10-5.20) 10*6/uL Hgb 16.8 H (12.0-15.0) g/dL Hct 49.5 H (37.2-46.3) % Immature Gran # 0.14 H (0.00-0.04) 10*3/uL Neutrophils # 19.06 H (1.80-7.70) 10*3/uL Lymphocytes # 0.22 L (0.90-5.00) 10*3/uL Monocytes # 1.03 H (0.20-1.00) 10*3/uL Eosinophils # 0.00 L (0.04-0.35) 10*3/uL Sodium (137-145) mmol/L Potassium (3.5-5.1) mmol/L Chloride (98-107) mmol/L Carbon Dioxide (22-30) mmol/L BUN (7-17) mg/dL Glucose (74-99) mg/dL POC Glucose (mg/dL) 156 H (70-110) mg/dL Assessment and Plan Time with Patient: Less than 30
--- NOTE | 2024-09-18 09:41 | P.PN ---
Subjective HISTORY OF PRESENT ILLNESS: This is an 78-year-old female patient with no prior cardiac history but medical history significant for chronic hypoxic respiratory failure secondary to COPD and alpha 1 antitrypsin deficiency presented to the hospital with progressive exertional dyspnea associated with progressive bilateral lower extremity edema for the last few days. No symptoms of chest pain or chest discomfort but she felt she was experiencing severe congestions with no fever and no chills and no cough and no sputum production. No other cardiovascular symptoms of dizziness or lightheadedness or any feeling of heart racing or fluttering or presyncope or syncope. She developed severe bilateral lower extremities edema. When she presented to the hospital she was hypoxic requiring high flow oxygen. Normally she is on 2 L of oxygen continuously. Definitely her oxygen requirement has increased within the last few days and she has been doing pulse oximetry at home and noticed that her oxygen saturation has been low. She underwent further evaluation including EKG showing RBBB. NT proBNP came to be elevated at 5000. First set of troponin is unremarkable with chest x-ray showed finding consistent with pulmonary vascular congestions and left pleural effusion but CT scan of the chest showed no evidence of PE. Venous duplex study showed no evidence of DVT as well. The physical examination is remarkable for regular rhythm with a systolic murmur at the right and left upper sternal border with diminished breathing sounds bilaterally and bilateral rhonchi and severe bilateral lower extremities pitting edema September 01, 2024 The patient was seen and evaluated this morning. She is overall feeling better. She still have bilateral lower extremities edema. The pressure remains marginal but appears to be better today which she was started on midodrine yesterday. Am going to stop the midodrine and decrease the dose of Lasix from 40 mg IV twice daily to 20 mg IV twice daily giving the marginally low blood pressure and also giving the finding on the echo including severe pulmonary hypertension and moderate pericardial effusion without tamponade physiology. The physical examination is remarkable for bilateral lower extremities edema. The troponin came to be mildly abnormal and I would consider medical treatment in the absence of any chest pain. September 02, 2024 The patient was seen and evaluated this morning. She is still hypoxic requiring high flow oxygen she still have severe bilateral lower extremities edema. Her pressure is better and with that I am going to increase the dose of Lasix to 40 mg IV twice daily which she is hypokalemic and the potassium is in process to be replaced. The physical examination is remarkable for diminished breathing sounds bilaterally and severe bilateral lower extremities edema. September 03, 2024 The patient was seen and evaluated this morning. The bilateral lower extremitie s edema has somewhat improved but continues to be there. She is on Lasix IV. I would suggest continue the current dose of Lasix IV and will follow-up with the blood work from the morning which is still pending. Otherwise she remains hemodynamically stable. No symptoms of chest pain or chest discomfort. The physical examination is remarkable for moderate bilateral lower extremities pitting edema with diminished breathing sounds bilaterally. Definitely the edema has improved after we increase the dose of Lasix yesterday. 09/04/2024 Patient is seen and examined at bedside this a.m. She is sitting in the chair with a high flow nasal cannula oxygen. 2+ pitting edema bilateral lower extrem ity, mild crackles in lung gupta, minimal wheezing. Alert oriented, reports that symptomatically she feels better since the time for admission. Blood pressure is borderline low with SBP around 90s to 100 mmHg. 09/05/2024 Patient is seen and examined at bedside this a.m. She continues to be on high flow nasal cannula 1-2+ pitting edema bilateral extremity with mild crackles in lung gupta with minimal wheezing Alert oriented Reports symptomatically feeling better. Blood pressure and heart rates are within acceptable ranges kidney function and electrolytes are within acceptable ranges. 09/06/2024 Patient examined this morning at the bedside. She remains on Airvo. She continues to report shortness of breath. She is currently on oral Bumex. She also is complaining of her left knee hurting. Repeat limited echo reveals severe right ventricular and right atrial enlargement, dilated IVC, moderate pericardial effusion mostly anterior. Venous Doppler completed negative for DVT. Patient underwent chest CTA which was negative for pulmonary embolism. Evidence of right heart strain, pulmonary hypertension with bilateral pleural effusions, pulmonary vascular congestion, and cardiomegaly. Moderate to severe emphysema. 09/07/2024 Patient examined this morning at the bedside. She is sitting up in the chair. She continues to report shortness of breath. She denies any chest pain or pressure. She underwent left-sided thoracentesis yesterday with removal of 800 cc. Postprocedure chest x-ray revealed trace pneumothorax. Blood pressure is low in the 90s. 09/08/2024 Patient examined this morning at the bedside. Patient currently denies chest pain or pressure. She reports mild shortness of breath. She remains on IV Lasix per pulmonary medicine. Sodium today 129. Potassium 3.3. BUN 34. Creatinine 0.75. 09/09/2024 Changed from high flow nasal cannula to 12 L nasal cannula supplemental oxygen Blood pressure is borderline low Kidney function is stable with borderline low sodium and potassium Appropriate urine output Negative fluid balance of 1100 cc today last 24 hours 09/10/2024 Patient seen and examined at bedside this a.m., kidney function is stable, potassium is 3.4 Still has mild residual lower extremity edema, on 2 L of nasal cannula supplemental oxygen. 09/11 Patient seen and examined. Blood pressure 110/65, heart rate 80. Patient states that she is feeling much better. She denies having a body cleaner prior to this admission. She still has a little edema to the lower extremities but she states this is much better. Blood pressure 107/73, heart rate 79, pulse ox 90% on 12 L high flow nasal cannula. Repeat blood work reveals hemoglobin 16.4. Sodium 128, BUN 39 creatinine 0.76, CO2 38. Yesterday, IV Lasix was transitioned to oral by pulmonary medicine. Patient has a negative fluid balance with documented weight loss of 7 kg. 09/12 Patient states that she is a little bit better today. She states she does not have any chest pain or chest pressure or tightness. She has a little dizzy. Edema to the lower extremities is a little better from yesterday. She has been maintained on oral Lasix and yesterday we decreased the frequency of metolazone to once daily due to drop in sodium. Today sodium is 129, potassium 3.9, BUN 39 creatinine 0.83, hemoglobin 16.6.. Blood pressure 100/70, heart rate 90, pulse ox 88% on 12 L nasal cannula. 09/13 Patient seen and examined. No medication changes were made by us yesterday. Patient is on 12 L high flow nasal cannula with pulse ox of 89% and followed by pulmonary medicine. Blood pressure 113/76, heart rate in the 80s. Repeat blood work reveals WBC 10.8, hemoglobin 16.8, sodium 131, potassium 3.4, BUN 39 creatinine 0.81. Patient states that her breathing is okay. She slept okay last night. She denies chest pain. No cough no wheezing. She does have some nausea. She continues to have some lower extremity edema. 09/14 Patient seen and examined. Patient states that her breathing is okay. She denies chest pain. She slept okay last night. She continues to have a little lower extremity edema. Blood pressure 97/64, heart rate in the 80s and 90s, pulse ox 90% on 9 L high flow nasal cannula. Repeat blood work reveals WBC 15, hemoglobin 18, sodium 130, potassium 4, BUN 43 creatinine 0.84 and CO2 40. Patient has a negative fluid balance with documented weight loss. Telemetry sin us rhythm. No medication changes made today. 09/15 Patient seen and examined. She states that her breathing is about the same. She denies having any nausea at this time. She states she did not sleep well last night. She continues to have lower extremity edema. Patient has been continued on oral Lasix as well as metolazone and Aldactone. Blood pressure 113/72, heart rate in the 80s, pulse ox 92% on high flow nasal cannula at 10 L. Patient has a negative fluid balance with documented weight loss. Repeat blood work reveals sodium 128, potassium 3.4, chloride 77, CO2 45, BUN 40 creatinine 0.73. proBNP 18,000. CTA of the chest performed yesterday afternoon revealed no PE. Persistent but improved subcutaneous. Resolved small right pleural effusion. Persistent small to moderate left pleural effusion. Moderate to advanced emphysematous changes redemonstrated. No acute process. Cardiomegaly. Small to moderate. Size pericardial effusion. Evidence of underlying pulmonary artery hypertension and right-sided heart failure. 09/16/2024 Patient examined this morning at the bedside. Patient is sitting up in the chair. Patient denies chest pain or pressure. She reports mild shortness of breath. She reports improvement in her lower extremity swelling. Vital signs are stable. Blood pressure 96/60. She is on 12 L nasal cannula. Sodium 128. Potassium 2.8. CO2 45. BUN 41. Creatinine 0.72. 09/17/2024 Patient examined this morning. Patient is sitting up in the chair. Patient denies chest pain or pressure. She continues to report shortness of breath, unchanged from yesterday. She continues to have lower extremity edema. Patient remains on oral Lasix. Sodium 128. Potassium 2.9. 09/18/2024 Patient examined this morning at the bedside. Patient is sitting up in the chair. Sodium today 129. Potassium 3.8. Carbon dioxide 49. BUN 46. Creatinine 0.68. Patient's Zaroxolyn was discontinued yesterday. She remains on 10 L nasal cannula. PHYSICAL EXAM: VITAL SIGNS: Reviewed. GENERAL: Well-developed in no acute distress. NECK: Supple. No JVD or thyromegaly LUNGS: Respirations even and unlabored. Lungs diminished bilaterally HEART: Regular rate and rhythm. S1 and S2 heard. Systolic murmur noted. EXTREMITIES: Normal range of motion. No clubbing or cyanosis. Peripheral pulses intact. 12+ bilateral lower extremity edema ASSESSMENT: Shortness of breath Acute on chronic hypoxic respiratory failure Acute on chronic heart failure with preserved EF Acute Cor pulmonale Moderate pericardial effusion Severe pulmonary hypertension Left pleural effusion, status post thoracentesis with removal 800 cc, 09/06/2024 Trace pneumothorax, post thoracentesis Hyponatremia Hypokalemia PLAN: Continue current cardiac medications including aspirin, Farxiga, Lasix, Aldactone, and potassium supplementation Zaroxolyn discontinued yesterday Supplement potassium Continue to monitor kidney function and electrolytes. Repeat in a.m. Daily weights and accurate intake and output Add Revatio 20mg TID Further recommendations pending patient course Nurse practitioner note has been reviewed by physician. Signing provider agrees with the documented findings, assessment, and plan of care documented by [employer] as a scribe. Objective - Vital Signs Vital signs: Vital Signs Temp 98.6 F 09/18/24 08:00 Pulse 89 09/18/24 09:19 Resp 20 09/18/24 08:00 BP 93/57 09/18/24 08:00 Pulse Ox 89 L 09/18/24 08:59 FiO2 70 09/09/24 08:20 Intake & Output 09/17/24 09/18/24 09/18/24 18:59 06:59 18:59 Intake Total 684 180 180 Output Total 1100 1450 Balance -416 -1270 180 Weight 59.8 kg Intake: IV 20 Invasive Line 5 10 Invasive Line 6 10 Oral 684 160 180 Output: Urine 1100 1450 Other: Voiding Method Bedside Commode Bedside Commode # Voids 1 1 # Bowel Movements 1 1 - Labs CBC & Chem 7: 09/18/24 04:31 09/18/24 04:31 Labs: Abnormal Lab Results - Last 24 Hours (Table) 09/16/24 09/17/24 09/17/24 Range/Units 05:21 15:56 19:49 WBC (4.50-10.00) 10*3/uL Hgb (12.0-15.0) g/dL Immature Gran # (0.00-0.04) 10*3/uL Neutrophils # (1.80-7.70) 10*3/uL Lymphocytes # (0.90-5.00) 10*3/uL Monocytes # (0.20-1.00) 10*3/uL Eosinophils # (0.04-0.35) 10*3/uL Sodium (137-145) mmol/L Potassium 3.4 L (3.5-5.1) mmol/L Chloride (98-107) mmol/L Carbon Dioxide 45 H* (22-30) mmol/L BUN (7-17) mg/dL Glucose (74-99) mg/dL POC Glucose (mg/dL) 119 H (70-110) mg/dL 09/17/24 09/18/24 09/18/24 Range/Units 19:58 04:31 04:31 WBC 19.14 H (4.50-10.00) 10*3/uL Hgb 15.7 H (12.0-15.0) g/dL Immature Gran # 0.15 H (0.00-0.04) 10*3/uL Neutrophils # 17.72 H (1.80-7.70) 10*3/uL Lymphocytes # 0.22 L (0.90-5.00) 10*3/uL Monocytes # 1.02 H (0.20-1.00) 10*3/uL Eosinophils # 0.00 L (0.04-0.35) 10*3/uL Sodium 129 L (137-145) mmol/L Potassium (3.5-5.1) mmol/L Chloride 76 L (98-107) mmol/L Carbon Dioxide 49 H* (22-30) mmol/L BUN 46 H (7-17) mg/dL Glucose 120 H (74-99) mg/dL POC Glucose (mg/dL) 140 H (70-110) mg/dL 09/18/24 Range/Units 06:07 WBC (4.50-10.00) 10*3/uL Hgb (12.0-15.0) g/dL Immature Gran # (0.00-0.04) 10*3/uL Neutrophils # (1.80-7.70) 10*3/uL Lymphocytes # (0.90-5.00) 10*3/uL Monocytes # (0.20-1.00) 10*3/uL Eosinophils # (0.04-0.35) 10*3/uL Sodium (137-145) mmol/L Potassium (3.5-5.1) mmol/L Chloride (98-107) mmol/L Carbon Dioxide (22-30) mmol/L BUN (7-17) mg/dL Glucose (74-99) mg/dL POC Glucose (mg/dL) 128 H (70-110) mg/dL
[2024-09-18] MEDS: SILDENAFIL 20 MG TAB PO SCH (10:21)
[2024-09-18 11:06] LABS: Glucose,Whole Blood 173 mg/dL (70-110)
--- NOTE | 2024-09-18 12:57 | P.PN ---
Subjective Progress Note Date: 09/18/24 Principal diagnosis: Congestive heart failure. This is an 78-year-old female patient with no prior cardiac history but medical history significant for chronic hypoxic respiratory failure secondary to COPD and alpha 1 antitrypsin deficiency presented to the hospital with progressive exertional dyspnea associated with progressive bilateral lower extremity edema for the last few days. No symptoms of chest pain or chest discomfort but she felt she was experiencing severe congestions with no fever and no chills and no cough and no sputum production. No other cardiovascular symptoms of dizziness or lightheadedness or any feeling of heart racing or fluttering or presyncope or syncope. She developed severe bilateral lower extremities edema. When she presented to the hospital she was hypoxic requiring high flow oxygen. Normally she is on 2 L of oxygen continuously. Definitely her oxygen requirement has increased within the last few days and she has been doing pulse oximetry at home and noticed that her oxygen saturation has been low. She underwent further evaluation including EKG showing RBBB. NT proBNP came to be elevated at 5000. First set of troponin is unremarkable with chest x-ray showed finding consistent with pulmonary vascular congestions and left pleural effusion but CT scan of the chest showed no evidence of PE. Venous duplex study showed no evidence of DVT as well. The physical examination is remarkable for regular rhythm with a systolic murmur at the right and left upper sternal border with diminished breathing sounds bilaterally and bilateral rhonchi and severe bilateral lower extremities pitting edema. I initially saw this patient in my office. She was hypoxic and she was in significant volume overload with extensive lower extremit y edema. I directed this patient to the Emergency Department. After being in the hospital for around 3 days, the patient remained hypoxic and the patient remains on Airvo at 45 L with an FiO2 of 65%. Based on that, a pulmonary consultation was requested. I reviewed the CT of the chest that was done on this patient. The patient has extensive emphysematous changes bilaterally and the patient also has a moderate-sized left-sided pleural effusion. No airspace disease. No consolidation. No pneumonias. There is also a new moderate to small size pericardial effusion. Echocardiogram was completed on 08/31/2024 and the patient was found to have a preserved LV function with an EF of around 65% and the patient also had severe RV dilatation, reduced RV global systolic function and severe pulmonary hypertension along with moderate pericardial effusion without signs of any tamponade. The patient had severe tricuspid regurgitation. Estimated right ventricular systolic pressure was 94. For now, the patient is on Lasix 40 mg IV every 12 hours. Monitoring her fluid balance has been essentially negative and the patient has been -2.2 L over the past 24 hours. Most recent electrolytes show a sodium level of 132, potassium of 3.6, BUN 31 with a creatinine 0.7. The white cell count is at 8.8 with a hemoglobin 17.3. She is currently on Lasix 40 mg IV every 12 hours. She is also on Ald actone 25 mg p.o. daily. She remains on IV heparin. The procalcitonin level was 0.08. Troponins were nonelevated. On 09/05/2024, the patient is being seen for a follow-up. The patient is calm and comfortable. The patient is currently on Airvo 45 L with an FiO2 of 65%. She remains on Bumex 1 mg p.o. twice daily and Aldactone 25 mg p.o. daily. She has been diuresing well over the past several days and the patient has been negative fluid balance of 1.1 L over the past 24 hours. No significant shortness of breath at rest. Continues to have significant amount of edema lower extremities bilaterally. The white cell count is at 8.4 with a hemoglobin 17.4 and a platelet count of 167. BUN is 30 with a creatinine of of 0.7. Sodium level is at 132 and a potassium level is at 3.5. Viral screen was negative. Chest x-ray from yesterday was consistent with COPD with chronic emphysematous changes and cardiomegaly and small left-sided pleural effusion. The patient also was noted to have a moderate-sized pericardial effusion without signs of tamponade. The patient was taken off the IV Lasix and the patient was started on Bumex in combination with Aldactone. 09/06/2024, the patient remains on Airvo 45 L with FiO2 of 50%. The fluid balance has been +125 cc over the past 24 hours. Based on that, making recommendations to start the patient on Lasix drip at 5 mg an hour. She continues to have significant amount of edema lower extremities bilaterally. Further workup was ordered by the medical group including a Doppler of lower extremity that showed no evidence of any DVT and CTA of the chest that showed no evidence of any pulmonary embolism. There was extensive bilateral severe emphysematous changes and a chronic left-sided pleural effusion. Based on that, I performed a bedside thoracentesis this patient and I drained approximately 800 cc of pleural fluid from the left lung. The patient tolerated the procedure well without any complications. The fluid will be sent for analysis. The white cell count is 8.4, hemoglobin is 17.4 and platelet count of 167. BUN is 30 with a creatinine of 0.7 and sodium is at 132 and a potassium level is at 3.5. 09/07/2024, the patient is being seen for a follow-up. The patient remains on Airvo at 45 L and FiO2 of 65%. Pulse ox is in the order of 92%. Remains dependent on high flow oxygen. She continues to diurese with Lasix drip at 5 mg an hour. She is postthoracentesis and a total of 800 cc of pleural fluid was aspirated from the left lung. The pleural fluid was a transudate. The chemistry that showed low LDH and low protein. The white cell count was also low with a lymphocytic predominance. The patient has no specific complaints. The white cell count is at 5.6, hemoglobin is 16.6 and a platelet count is at 153. Sodium is at 130, BUN 29 with a creatinine of 0.7. K level is at 3.4. Remains on DuoNeb updrafts. Will start IV Solu-Medrol. 09/08/2024, the patient is being seen for a follow-up. Remains on Airvo 40 L and FiO2 of 65%. Currently on Lasix drip at 5 mg an hour. Also on Zaroxolyn 5 mg p.o. twice a day.. She is also on a combination of bronchodilators and IV Solu- Medrol. Unfortunately, no significant improvement in oxygenation over the past 24 hours and will continue to monitor. The white cell count of 9.5, hemoglobin is at 15.6 and a platelet count of 156. Sodium levels at 129, potassium level 3.3. BUN is 34 with a creatinine of 0.7. Procalcitonin level is at 0.08. Cortisol level is at 32. Pleural fluid aspirated from the left lung was consistent with a transudate. On 09/09/2024, the patient was taken off the Airvo and the patient was placed on 12 L of oxygen by nasal cannula. Current pulse ox is around 88%. She is calm and comfortable. Denies having any new complaints. I am not sure if the patient is having accurate input output measurement. Nevertheless, based on the fluid balance, she is +500 cc over the past 24 hours. She is off the Lasix drip and the patient is currently receiving Lasix 40 mg IV every 12 hours. She is also on Zaroxolyn 5 mg p.o. twice a day. He is also on Aldactone 25 mg p.o. daily. Doing well. Afebrile. Hemodynamically stable. Blood work from today shows a white cell count of 10.3, hemoglobin of 15 and a platelet count of 176. BUN 36 with a creatinine of 0.7. Sodium level is at 128. No other significant events otherwise for now. 09/10/2024, the patient is doing well on 12 L of oxygen by nasal cannula. Pulse ox is ranging between 88 to 92%. No specific complaints. She still diuresing with a combination of Zaroxolyn and IV Lasix. There is some residual lower extremity edema. The white cell count of 8.7 with a hemoglobin of 6.4 and a platelet count of 161. Patient also has a stable level of 127, potassium level of 3.4,, chloride 86, BUN is 40 with a creatinine of 0.6. Patient was seen today on 09/11/2024, remains on the cardiac floor, remains on 12 L high flow nasal cannula, O2 saturation is 92%. Patient has been diuresing wit different diuretics including Zaroxolyn and Lasix, does not seem to be in distress Patient had thoracentesis done by Dr. San about 5 days ago, cytology was negative for malignancy, fluid was mostly transudative in nature. WBC is 9.3 hemoglobin 16.4 electrolytes are relatively normal except of sodium 128, BUN is 39 creatinine 0.76 hemodynamically the patient is stable, clinically she feels better, breathing easier, still being followed by many consultants including cardiology, patient is responding to diuretics but nonetheless she still requiring significant amount of FiO2. Patient was seen today on 09/12/2024, patient is feeling better today, less shortness of breath, no chest pain, no chest pressure, no tightness, patient remains on diuretics, she is on oral Lasix, cardiology is handling diuretics patient had a follow-up chest x-ray with small recurrent left pleural effusion noted, some atelectasis, patient is still requiring relatively high FiO2, on 12 L nasal cannula. No plans to perform thoracentesis on this patient since the size of the fluid is #1 way too small, and patient had previous thoracentesis the fluid was transudative in nature. CT angiogram of the chest on admission showed no evidence of pulmonary embolism on this patient. Seen today on09/13/24, patient is clinically feeling better, however she remains on high FiO2 at 12 L, O2 sat show is marginal. Chest x-ray showed small left pleural effusion, previous CT angiogram of the chest to rule out pulmonary embolism patient remains on diuretics, she does have pulmonary hypertension, overall not much of a change in the last few days. Basically about the same. However she could not be discharged home on 12 L nasal cannula and we are continuing diuretics. Also on bronchodilators Patient was seen today , clinically improving but her FiO2 requirement remains high on 12 L high flow nasal cannula titrated down to 9 L and maintain her O2 saturation in the low 90s. Patient has very minimal small left pleural effusion to explain her profound hypoxia, hence today I recommended a CT angiogram on this patient. And this is pending. My index of suspicion for pulmonary embolism is rather low but considering her ongoing hypoxia it is best to be safe and address that accordingly. She did have CT angiogram on her initial presentation and that was negative for PE. WBC count 15.17 hemoglobin is 18.2 electrolytes are normal renal profile is relatively normal bicarb is 40. Patient was seen today on 09/15/2024, patient remains about the same, clinically better but still requiring high O2 flow, she is now on 10 L high flow nasal cannula, CT angiogram of the chest showed no evidence of pulmonary embolism, the effusion is very small, and clearly not contributing to her hypoxia much. Patient remains on diuretics, remains on bronchodilators, clinically better but still requiring high FiO2. Labs today were reviewed bicarb is 45 renal profile is normal sodium is 128 Seen today on 09/16/2024, basically about the same, remains on high flow nasal cannula at 12 L today, O2 sats is marginal, patient does not seem to be showing any significant improvement whatsoever. Clinically she seems to be comfortable, and not in distress. WBC is 15.3 hemoglobin 16.5 electrolytes are abnormal with low sodium low potassium low chloride elevated bicarb, BUN is 41 creatinine 0.72, electrolytes are being addressed by admitting physician. Seen today on 09/17/2024, she is now on 10 L high flow nasal cannula, remains marginal at best, patient is not symptomatic, but she desaturates easily down to the 80s when her FiO2 is below 10 L. Patient is comfortable, remains on diuretics, remains on bronchodilators, remains on steroids, not much of a change has been noticed over the last 1 week. WBC count is 20.47 hemoglobin 16.8 sodium is low at 128 potassium 2.9 bicarb is 48. Is 44 creatinine 0.75 Progress note dated September 18, 2024. This is an 78-year-old female seen today in room 351. The patient was admitted with a diagnosis of CHF. Currently she remains on 10 L high flow O2. Saturations are 90 to 91%. The patient is not receiving any IV fluids. Current laboratory data includes a white count of 19.1, hemoglobin 15.7, hematocrit 45.3, and a platelet count of 231,000. Sodium 129, potassium 3.8, chlorides 76, and CO2 49, BUN 46, and creatinine 0.68. Glucose 173. Calcium 9.6 with a magnesium of 1.8. CTA done on September 14 shows no evidence of pulmonary embolism, but improved subcutaneous edema. There is a small right pleural effusion, and a small to moderate size left pleural effusion. Objective - Vital Signs Vital signs: Vital Signs Temp 98.6 F 09/18/24 08:00 Pulse 80 09/18/24 12:06 Resp 20 09/18/24 11:31 BP 92/55 09/18/24 11:31 Pulse Ox 90 L 09/18/24 11:31 FiO2 70 09/09/24 08:20 Intake & Output 09/17/24 09/18/24 09/18/24 18:59 06:59 18:59 Intake Total 684 180 417 Output Total 1100 1450 Balance -416 -1270 417 Weight 59.8 kg Intake: IV 20 Invasive Line 5 10 Invasive Line 6 10 Oral 684 160 417 Output: Urine 1100 1450 Other: Voiding Method Bedside Commode Bedside Commode Bedside Commode # Voids 1 1 # Bowel Movements 1 1 - Exam No acute distress, oriented 3. Currently on 10 L high flow oxygen. HEENT examination is grossly unremarkable. Mucous membranes are moist. No oral lesions. Neck supple. Full range of motion. No adenopathy thyromegaly or neck vein distention. Cardiovascular examination reveals regular rhythm rate. S1-S2 normal. No S3 or S4. A soft systolic murmur is noted. Lungs reveal basilar crackles, and mild rhonchi. Breath sounds are equal bilaterally. Abdomen soft bowel sounds are heard. No masses or tenderness. Extremities are intact. No cyanosis or clubbing. Trace edema noted. Skin is without rash or lesion. Neurologic examination is brief but nonfocal. - Labs CBC & Chem 7: 09/18/24 04:09/18/24 04:31 Labs: Abnormal Lab Results - Last 24 Hours (Table) 09/16/24 09/17/24 09/17/24 Range/Units 05:21 15:56 19:49 WBC (4.50-10.00) 10*3/uL Hgb (12.0-15.0) g/dL Immature Gran # (0.00-0.04) 10*3/uL Neutrophils # (1.80-7.70) 10*3/uL Lymphocytes # (0.90-5.00) 10*3/uL Monocytes # (0.20-1.00) 10*3/uL Eosinophils # (0.04-0.35) 10*3/uL Sodium (137-145) mmol/L Potassium 3.4 L (3.5-5.1) mmol/L Chloride (98-107) mmol/L Carbon Dioxide 45 H* (22-30) mmol/L BUN (7-17) mg/dL Glucose (74-99) mg/dL POC Glucose (mg/dL) 119 H (70-110) mg/dL 09/17/24 09/18/24 09/18/24 Range/Units 19:58 04:31 04:31 WBC 19.14 H (4.50-10.00) 10*3/uL Hgb 15.7 H (12.0-15.0) g/dL Immature Gran # 0.15 H (0.00-0.04) 10*3/uL Neutrophils # 17.72 H (1.80-7.70) 10*3/uL Lymphocytes # 0.22 L (0.90-5.00) 10*3/uL Monocytes # 1.02 H (0.20-1.00) 10*3/uL Eosinophils # 0.00 L (0.04-0.35) 10*3/uL Sodium 129 L (137-145) mmol/L Potassium (3.5-5.1) mmol/L Chloride 76 L (98-107) mmol/L Carbon Dioxide 49 H* (22-30) mmol/L BUN 46 H (7-17) mg/dL Glucose 120 H (74-99) mg/dL POC Glucose (mg/dL) 140 H (70-110) mg/dL 09/18/24 09/18/24 Range/Units 06:07 11:05 WBC (4.50-10.00) 10*3/uL Hgb (12.0-15.0) g/dL Immature Gran # (0.00-0.04) 10*3/uL Neutrophils # (1.80-7.70) 10*3/uL Lymphocytes # (0.90-5.00) 10*3/uL Monocytes # (0.20-1.00) 10*3/uL Eosinophils # (0.04-0.35) 10*3/uL Sodium (137-145) mmol/L Potassium (3.5-5.1) mmol/L Chloride (98-107) mmol/L Carbon Dioxide (22-30) mmol/L BUN (7-17) mg/dL Glucose (74-99) mg/dL POC Glucose (mg/dL) 128 H 173 H (70-110) mg/dL Assessment and Plan Assessment: Acute on chronic hypoxemic respiratory failure. Acute on chronic heart failure, with preserved ejection fraction. Chronic right-sided heart failure with severe pulmonary hypertension, and cor pulmonale. Moderate pericardial effusion. Severe pulmonary hypertension. Left pleural effusion, status postthoracentesis, September 06, 2024. Trace pneumothorax, S/P thoracentesis. History of panic attacks and generalized anxiety disorder. History of gout. Urinary retention. Hyponatremia. Plan: Plan dated September 18, 2024. The patient continues on oxygen. We will attempt to titrate the FiO2 down. Labs, x-rays, and medications are reviewed. We will continue to follow make recommendations. The patient continues on diuretics and corticosteroids, as well as bronchodilators. Prognosis is guarded. Labs, x-rays, and medications are reviewed. Dictation was produced using [employer] software. Please excuse any grammatical, word or spelling errors. Time with Patient: Less than 30
[2024-09-18 16:24] LABS: Glucose,Whole Blood 134 mg/dL (70-110)
[2024-09-18 19:50] LABS: Glucose,Whole Blood 122 mg/dL (70-110)
--- NOTE | 2024-09-18 22:10 | P.PN ---
Subjective Progress Note Date: 09/18/24 Patient is admitted for multifactorial respiratory failure secondary to CHF COPD with acute exacerbation still having hypoxia patient is on 10 L of oxygen patient has diminished air entry into bilateral lung gupta patient has alpha-1 antitrypsin deficiency leading to severe emphysema usually uses oxygen but patient is on high amount of oxygen at this time patient also has chronic right- sided heart failure with severe pulmonary hypertension and cor pulmonale. Patient had a CT of the chest as we are unable to wean her off oxygen CT did not show any pulmonary embolism but did show some pericardial effusion. 09/15/2024 Patient is evaluated today in the follow up. Sitting up in the chair. Continues with significant peripheral edema and pitting up to the thighs. Continues on oral lasix BID. Urine out 2.2 L so far today. IV lasix x 1 dose given also. Patient continues on 10 L of oxygen via nasal cannula. Labs today reveal sodium 128, potassium 3.4, CO2 45, BNP 18,000. Dr Allan in to see patient today for routine care and trimming of the nails on bilateral feet. 09/16/2024 Patient is evaluated again sitting up in the chair. Patients peripheral edema slightly improved. Over 4L of urine output yesterday. Remains on oral lasix 40 mg BID. Oxygen was increased to 12L hi flow. Labs today reveal white blood cell count 15.33, hgb 16.5, sodium 128, BUN 41, creatinine 0.72. Chloride 74, CO2 45. 09/17/2024 Patient is evaluated today sitting up in the chair. Patient continues with peripheral edema. Remains on 10 L of oxygen via nasal cannula. Not having any significant complaints. On fluid restriction 1200 CC. Labs today reveal white blood cell count of 20.47, hgb 16.8, sodium 128, potassium 3.4, CO2 48, chloride 73,. 09/18/2024 Patient is evaluated in follow-up today by the chair family at the bedside. She continues with significant lower extremity peripheral edema. She remains on times of oxygen via nasal cannula. She continues on Lasix 40 mg oral twice daily. White blood cell count today is 19.14, sodium level 129. BUN 46 creatinine 0.68. Heart rate in the 100s. Review of Systems Constitutional: Denied any fatigue denied any fever. Cardio vascular: denied any chest pain, palpitations Gastrointestinal: denied any nausea, vomiting, diarrhea Pulmonary: Denied any shortness of breath cough Neurologic denied any new focal deficits All inpatient medications were reviewed and appropriate changes in these medications as dictated in the interval history and assessment and plan. PHYSICAL EXAMINATION: GENERAL: The patient is alert and oriented x3, not in any acute distress. Thin built cachectic female HEENT: Pupils are round and equally reacting to light. EOMI. No scleral icterus. No conjunctival pallor. Normocephalic, atraumatic. No pharyngeal erythema. No thyromegaly. CARDIOVASCULAR: S1 and S2 present. No murmurs, rubs, or gallops. PULMONARY: Decreased air entry to bilateral lung gupta ABDOMEN: Soft, nontender, nondistended, normoactive bowel sounds. No palpable organomegaly. MUSCULOSKELETAL: No joint swelling or deformity. EXTREMITIES: No cyanosis, clubbing, +1 pitting lower extremity edema NEUROLOGICAL: Gross neurological examination did not reveal any focal deficits. SKIN: No rashes. Assessment and plan -Acute on chronic hypoxic and hypercapnic respiratory failure secondary to COPD exacerbation right-sided heart failure pulmonary hypertension -Hyponatremia secondary to excessive diuresis - Acute cor pulmonale - Leukocytosis likely steroid-induced - Congestive heart failure with preserved ejection fraction or diastolic dysfunction - Severe pulmonary hypertension - Trace pneumothorax with status post thoracentesis - Mild to moderate pericardial effusion - Urinary retention patient has a Alba catheter in place DVT prophylaxis: Patient will be started on low-dose Lovenox Continue oral lasix 40 mg BID and strict intake and output monitoring. IV solumedrol has been decreased to 40 mg [id number]. Wean oxygen as tolerated. Repeat CBC, BMP in the AM. Cardiology and pulmonology following. The impression and plan of care has been dictated by Neli Redding, Nurse Practitioner as directed. Dr. Abe MD I have performed a history and physical examination and medical decision making of this patient, discussed the same with the dictator, and agree with the dictators assessment and plan as written, documented as a scribe. Based on total visit time, I have performed more than 50% of this visit. Objective - Vital Signs Vital signs: Vital Signs Temp 97.6 F 09/18/24 19:39 Pulse 107 H 09/18/24 21:34 Resp 24 09/18/24 19:39 BP 105/63 09/18/24 19:39 Pulse Ox 88 L 09/18/24 19:39 FiO2 70 09/09/24 08:20 Intake & Output 09/18/24 09/18/24 09/19/24 06:59 18:59 06:59 Intake Total 180 914 287 Output Total 1450 1100 500 Balance -1270 -186 -213 Weight 59.8 kg Intake: IV 20 10 Invasive Line 5 10 Invasive Line 6 10 10 Oral 160 914 277 Output: Urine 1450 1100 500 Other: Voiding Method Bedside Commode Bedside Commode # Voids 1 1 # Bowel Movements 1 1 1 - Labs CBC & Chem 7: 09/18/24 04:31 09/18/24 04:31 Labs: Abnormal Lab Results - Last 24 Hours (Table) 09/18/24 09/18/24 09/18/24 Range/Units 04: 04:31 06:07 WBC 19.14 H (4.50-10.00) 10*3/uL Hgb 15.7 H (12.0-15.0) g/dL Immature Gran # 0.15 H (0.00-0.04) 10*3/uL Neutrophils # 17.72 H (1.80-7.70) 10*3/uL Lymphocytes # 0.22 L (0.90-5.00) 10*3/uL Monocytes # 1.02 H (0.20-1.00) 10*3/uL Eosinophils # 0.00 L (0.04-0.35) 10*3/uL Sodium 129 L (137-145) mmol/L Chloride 76 L (98-107) mmol/L Carbon Dioxide 49 H* (22-30) mmol/L BUN 46 H (7-17) mg/dL Glucose 120 H (74-99) mg/dL POC Glucose (mg/dL) 128 H (70-110) mg/dL 09/18/24 09/18/24 09/18/24 Range/Units 11:05 16:23 19:49 WBC (4.50-10.00) 10*3/uL Hgb (12.0-15.0) g/dL Immature Gran # (0.00-0.04) 10*3/uL Neutrophils # (1.80-7.70) 10*3/uL Lymphocytes # (0.90-5.00) 10*3/uL Monocytes # (0.20-1.00) 10*3/uL Eosinophils # (0.04-0.35) 10*3/uL Sodium (137-145) mmol/L Chloride (98-107) mmol/L Carbon Dioxide (22-30) mmol/L BUN (7-17) mg/dL Glucose (74-99) mg/dL POC Glucose (mg/dL) 173 H 134 H 122 H (70-110) mg/dL Assessment and Plan Time with Patient: Less than 30
[2024-09-19 01:47] LABS: Appearance,Urine Clear (Clear); Bacteria,Urine Rare /hpf; Bilirubin,Urine Negative (Negative); Blood,Urine Negative (Negative); Color,Urine Light Yellow; Glucose,Urine (UA) 2+ (Negative); Hyaline Casts,Urine 3 /lpf (0-2); Ketones,Urine Negative (Negative); Leukocyte Esterase,Urine Trace (Negative); Nitrite,Urine Negative (Negative); Protein,Urine Negative (Negative); RBC,Urine 1 /hpf (0-5); Specific Gravity,Urine 1.009 (1.001-1.035); Squamous Epithelial Cell,Urine <1 /hpf (0-4); WBC,Urine 9 /hpf (0-5)
[2024-09-19 06:05] LABS: Glucose,Whole Blood 138 mg/dL (70-110)
[2024-09-19 06:14] LABS: Basophils # (A) 0.03 10*3/uL (0.00-0.10); Basophils % (A) 0.1 %; HGB 15.3 g/dL (12.0-15.0); Lymphocytes # (A) 0.21 10*3/uL (0.90-5.00); MCH 31.7 pg (27.0-32.0); MCHC 35.6 g/dL (32.0-37.0); Mean Platelet Volume 10.5 fL (9.5-12.2); Monocytes # (A) 0.71 10*3/uL (0.20-1.00); Monocytes % (A) 3.5 %; Neutrophils # (A) 18.99 10*3/uL (1.80-7.70); Neutrophils % (A) 94.6 %; Platelet Count 209 10*3/uL (140-440); RBC 4.83 10*6/uL (4.10-5.20); RDW 15.9 % (11.5-14.5); WBC 20.11 10*3/uL (4.50-10.00)
[2024-09-19 06:27] LABS: African American GFR (CKD) >90 (>60 ml/min/1.73 sqM); Blood Urea Nitrogen 46 mg/dL (7-17); Calcium 9.4 mg/dL (8.4-10.2); Chloride 79 mmol/L (98-107); Glucose 136 mg/dL (74-99); Non-African American GFR(CKD) 83 (>60 ml/min/1.73 sqM); Potassium 3.4 mmol/L (3.5-5.1); Sodium 128 mmol/L (137-145)
[2024-09-19 06:33] LABS: Anion Gap 8 mmol/L
[2024-09-19 06:40] LABS: Carbon Dioxide 41 mmol/L (22-30)
[2024-09-19] MEDS: POTASSIUM CHLORIDE ER 20 MEQ TAB.ER PO STA (08:24)
[2024-09-19] MEDS: predniSONE 20 MG TAB PO SCH (08:24)
[2024-09-19 09:39] LABS: Influenza A Not Detected (Not Detectd); Influenza B Not Detected (Not Detectd); RSV Not Detected (Not Detectd)
[2024-09-19] MEDS ORDERED: IPRATROPIUM-ALBUTEROL 3 ML NEB INHALATION PRN (11:03)
[2024-09-19 11:37] LABS: Glucose,Whole Blood 122 mg/dL (70-110)
--- NOTE | 2024-09-19 12:02 | P.PN ---
Subjective Progress Note Date: 09/19/24 Principal diagnosis: Congestive heart failure. This is an 78-year-old female patient with no prior cardiac history but medical history significant for chronic hypoxic respiratory failure secondary to COPD and alpha 1 antitrypsin deficiency presented to the hospital with progressive exertional dyspnea associated with progressive bilateral lower extremity edema for the last few days. No symptoms of chest pain or chest discomfort but she felt she was experiencing severe congestions with no fever and no chills and no cough and no sputum production. No other cardiovascular symptoms of dizziness or lightheadedness or any feeling of heart racing or fluttering or presyncope or syncope. She developed severe bilateral lower extremities edema. When she presented to the hospital she was hypoxic requiring high flow oxygen. Normally she is on 2 L of oxygen continuously. Definitely her oxygen requirement has increased within the last few days and she has been doing pulse oximetry at home and noticed that her oxygen saturation has been low. She underwent further evaluation including EKG showing RBBB. NT proBNP came to be elevated at 5000. First set of troponin is unremarkable with chest x-ray showed finding consistent with pulmonary vascular congestions and left pleural effusion but CT scan of the chest showed no evidence of PE. Venous duplex study showed no evidence of DVT as well. The physical examination is remarkable for regular rhythm with a systolic murmur at the right and left upper sternal border with diminished breathing sounds bilaterally and bilateral rhonchi and severe bilateral lower extremities pitting edema. I initially saw this patient in my office. She was hypoxic and she was in significant volume overload with extensive lower extremit y edema. I directed this patient to the Emergency Department. After being in the hospital for around 3 days, the patient remained hypoxic and the patient remains on Airvo at 45 L with an FiO2 of 65%. Based on that, a pulmonary consultation was requested. I reviewed the CT of the chest that was done on this patient. The patient has extensive emphysematous changes bilaterally and the patient also has a moderate-sized left-sided pleural effusion. No airspace disease. No consolidation. No pneumonias. There is also a new moderate to small size pericardial effusion. Echocardiogram was completed on 08/31/2024 and the patient was found to have a preserved LV function with an EF of around 65% and the patient also had severe RV dilatation, reduced RV global systolic function and severe pulmonary hypertension along with moderate pericardial effusion without signs of any tamponade. The patient had severe tricuspid regurgitation. Estimated right ventricular systolic pressure was 94. For now, the patient is on Lasix 40 mg IV every 12 hours. Monitoring her fluid balance has been essentially negative and the patient has been -2.2 L over the past 24 hours. Most recent electrolytes show a sodium level of 132, potassium of 3.6, BUN 31 with a creatinine 0.7. The white cell count is at 8.8 with a hemoglobin 17.3. She is currently on Lasix 40 mg IV every 12 hours. She is also on Ald actone 25 mg p.o. daily. She remains on IV heparin. The procalcitonin level was 0.08. Troponins were nonelevated. On 09/05/2024, the patient is being seen for a follow-up. The patient is calm and comfortable. The patient is currently on Airvo 45 L with an FiO2 of 65%. She remains on Bumex 1 mg p.o. twice daily and Aldactone 25 mg p.o. daily. She has been diuresing well over the past several days and the patient has been negative fluid balance of 1.1 L over the past 24 hours. No significant shortness of breath at rest. Continues to have significant amount of edema lower extremities bilaterally. The white cell count is at 8.4 with a hemoglobin 17.4 and a platelet count of 167. BUN is 30 with a creatinine of of 0.7. Sodium level is at 132 and a potassium level is at 3.5. Viral screen was negative. Chest x-ray from yesterday was consistent with COPD with chronic emphysematous changes and cardiomegaly and small left-sided pleural effusion. The patient also was noted to have a moderate-sized pericardial effusion without signs of tamponade. The patient was taken off the IV Lasix and the patient was started on Bumex in combination with Aldactone. 09/06/2024, the patient remains on Airvo 45 L with FiO2 of 50%. The fluid balance has been +125 cc over the past 24 hours. Based on that, making recommendations to start the patient on Lasix drip at 5 mg an hour. She continues to have significant amount of edema lower extremities bilaterally. Further workup was ordered by the medical group including a Doppler of lower extremity that showed no evidence of any DVT and CTA of the chest that showed no evidence of any pulmonary embolism. There was extensive bilateral severe emphysematous changes and a chronic left-sided pleural effusion. Based on that, I performed a bedside thoracentesis this patient and I drained approximately 800 cc of pleural fluid from the left lung. The patient tolerated the procedure well without any complications. The fluid will be sent for analysis. The white cell count is 8.4, hemoglobin is 17.4 and platelet count of 167. BUN is 30 with a creatinine of 0.7 and sodium is at 132 and a potassium level is at 3.5. 09/07/2024, the patient is being seen for a follow-up. The patient remains on Airvo at 45 L and FiO2 of 65%. Pulse ox is in the order of 92%. Remains dependent on high flow oxygen. She continues to diurese with Lasix drip at 5 mg an hour. She is postthoracentesis and a total of 800 cc of pleural fluid was aspirated from the left lung. The pleural fluid was a transudate. The chemistry that showed low LDH and low protein. The white cell count was also low with a lymphocytic predominance. The patient has no specific complaints. The white cell count is at 5.6, hemoglobin is 16.6 and a platelet count is at 153. Sodium is at 130, BUN 29 with a creatinine of 0.7. K level is at 3.4. Remains on DuoNeb updrafts. Will start IV Solu-Medrol. 09/08/2024, the patient is being seen for a follow-up. Remains on Airvo 40 L and FiO2 of 65%. Currently on Lasix drip at 5 mg an hour. Also on Zaroxolyn 5 mg p.o. twice a day.. She is also on a combination of bronchodilators and IV Solu- Medrol. Unfortunately, no significant improvement in oxygenation over the past 24 hours and will continue to monitor. The white cell count of 9.5, hemoglobin is at 15.6 and a platelet count of 156. Sodium levels at 129, potassium level 3.3. BUN is 34 with a creatinine of 0.7. Procalcitonin level is at 0.08. Cortisol level is at 32. Pleural fluid aspirated from the left lung was consistent with a transudate. On 09/09/2024, the patient was taken off the Airvo and the patient was placed on 12 L of oxygen by nasal cannula. Current pulse ox is around 88%. She is calm and comfortable. Denies having any new complaints. I am not sure if the patient is having accurate input output measurement. Nevertheless, based on the fluid balance, she is +500 cc over the past 24 hours. She is off the Lasix drip and the patient is currently receiving Lasix 40 mg IV every 12 hours. She is also on Zaroxolyn 5 mg p.o. twice a day. He is also on Aldactone 25 mg p.o. daily. Doing well. Afebrile. Hemodynamically stable. Blood work from today shows a white cell count of 10.3, hemoglobin of 15 and a platelet count of 176. BUN 36 with a creatinine of 0.7. Sodium level is at 128. No other significant events otherwise for now. 09/10/2024, the patient is doing well on 12 L of oxygen by nasal cannula. Pulse ox is ranging between 88 to 92%. No specific complaints. She still diuresing with a combination of Zaroxolyn and IV Lasix. There is some residual lower extremity edema. The white cell count of 8.7 with a hemoglobin of 6.4 and a platelet count of 161. Patient also has a stable level of 127, potassium level of 3.4,, chloride 86, BUN is 40 with a creatinine of 0.6. Patient was seen today on 09/11/2024, remains on the cardiac floor, remains on 12 L high flow nasal cannula, O2 saturation is 92%. Patient has been diuresing wit different diuretics including Zaroxolyn and Lasix, does not seem to be in distress Patient had thoracentesis done by Dr. San about 5 days ago, cytology was negative for malignancy, fluid was mostly transudative in nature. WBC is 9.3 hemoglobin 16.4 electrolytes are relatively normal except of sodium 128, BUN is 39 creatinine 0.76 hemodynamically the patient is stable, clinically she feels better, breathing easier, still being followed by many consultants including cardiology, patient is responding to diuretics but nonetheless she still requiring significant amount of FiO2. Patient was seen today on 09/12/2024, patient is feeling better today, less shortness of breath, no chest pain, no chest pressure, no tightness, patient remains on diuretics, she is on oral Lasix, cardiology is handling diuretics patient had a follow-up chest x-ray with small recurrent left pleural effusion noted, some atelectasis, patient is still requiring relatively high FiO2, on 12 L nasal cannula. No plans to perform thoracentesis on this patient since the size of the fluid is #1 way too small, and patient had previous thoracentesis the fluid was transudative in nature. CT angiogram of the chest on admission showed no evidence of pulmonary embolism on this patient. Seen today on09/13/24, patient is clinically feeling better, however she remains on high FiO2 at 12 L, O2 sat show is marginal. Chest x-ray showed small left pleural effusion, previous CT angiogram of the chest to rule out pulmonary embolism patient remains on diuretics, she does have pulmonary hypertension, overall not much of a change in the last few days. Basically about the same. However she could not be discharged home on 12 L nasal cannula and we are continuing diuretics. Also on bronchodilators Patient was seen today , clinically improving but her FiO2 requirement remains high on 12 L high flow nasal cannula titrated down to 9 L and maintain her O2 saturation in the low 90s. Patient has very minimal small left pleural effusion to explain her profound hypoxia, hence today I recommended a CT angiogram on this patient. And this is pending. My index of suspicion for pulmonary embolism is rather low but considering her ongoing hypoxia it is best to be safe and address that accordingly. She did have CT angiogram on her initial presentation and that was negative for PE. WBC count 15.17 hemoglobin is 18.2 electrolytes are normal renal profile is relatively normal bicarb is 40. Patient was seen today on 09/15/2024, patient remains about the same, clinically better but still requiring high O2 flow, she is now on 10 L high flow nasal cannula, CT angiogram of the chest showed no evidence of pulmonary embolism, the effusion is very small, and clearly not contributing to her hypoxia much. Patient remains on diuretics, remains on bronchodilators, clinically better but still requiring high FiO2. Labs today were reviewed bicarb is 45 renal profile is normal sodium is 128 Seen today on 09/16/2024, basically about the same, remains on high flow nasal cannula at 12 L today, O2 sats is marginal, patient does not seem to be showing any significant improvement whatsoever. Clinically she seems to be comfortable, and not in distress. WBC is 15.3 hemoglobin 16.5 electrolytes are abnormal with low sodium low potassium low chloride elevated bicarb, BUN is 41 creatinine 0.72, electrolytes are being addressed by admitting physician. Seen today on 09/17/2024, she is now on 10 L high flow nasal cannula, remains marginal at best, patient is not symptomatic, but she desaturates easily down to the 80s when her FiO2 is below 10 L. Patient is comfortable, remains on diuretics, remains on bronchodilators, remains on steroids, not much of a change has been noticed over the last 1 week. WBC count is 20.47 hemoglobin 16.8 sodium is low at 128 potassium 2.9 bicarb is 48. Is 44 creatinine 0.75 Progress note dated September 18, 2024. This is an 78-year-old female seen today in room 351. The patient was admitted with a diagnosis of CHF. Currently she remains on 10 L high flow O2. Saturations are 90 to 91%. The patient is not receiving any IV fluids. Current laboratory data includes a white count of 19.1, hemoglobin 15.7, hematocrit 45.3, and a platelet count of 231,000. Sodium 129, potassium 3.8, chlorides 76, and CO2 49, BUN 46, and creatinine 0.68. Glucose 173. Calcium 9.6 with a magnesium of 1.8. CTA done on September 14 shows no evidence of pulmonary embolism, but improved subcutaneous edema. There is a small right pleural effusion, and a small to moderate size left pleural effusion. Progress note dated September 19, 2024. 78-year-old female seen again in room 351. She continues on high flow nasal O2 at 11 L/min. She is not receiving any IV fluids. Today we increased her Pulmicort up to 1 mg, twice a day, we also DC albuterol, and add DuoNebs, 4 times daily and as needed. Will check a chest x-ray, and will do an ultrasound of the left chest, to see if the effusion, is large enough to do thoracentesis. Current laboratory data includes a white count of 20.1, hemoglobin 15.3, hematocrit 43.0, and a platelet count of 209,000. Sodium 128, potassium 3.4, chloride 79, CO2 41, BUN 46, and creatinine 0.68. Glucose is 122. Calcium is 9.4. Objective - Vital Signs Vital signs: Vital Signs Temp 97.3 F L 09/19/24 11:31 Pulse 93 09/19/24 11:31 Resp 20 09/19/24 11:31 BP 90/57 09/19/24 11:31 Pulse Ox 90 L 09/19/24 11:31 FiO2 70 09/09/24 08:20 Intake & Output 09/18/24 09/19/24 09/19/24 18:59 06:59 18:59 Intake Total 914 287 720 Output Total 1100 1400 400 Balance -186 -1113 320 Weight 58.5 kg Intake: IV 10 Invasive Line 6 10 Oral 914 277 720 Output: Urine 1100 1400 400 Other: Voiding Method Bedside Commode Bedside Commode # Voids 1 # Bowel Movements 1 1 1 - Exam No acute distress, oriented 3. Currently on 11 L high flow oxygen. HEENT examination is grossly unremarkable. Mucous membranes are moist. No oral lesions. Neck supple. Full range of motion. No adenopathy thyromegaly or neck vein distention. Cardiovascular examination reveals regular rhythm rate. S1-S2 normal. No S3 or S4. A soft systolic murmur is noted. Lungs reveal basilar crackles, and mild rhonchi. Breath sounds are diminished at the left lung base. Abdomen soft bowel sounds are heard. No masses or tenderness. Extremities are intact. No cyanosis or clubbing. Trace edema noted. Skin is without rash or lesion. Neurologic examination is brief but nonfocal. - Labs CBC & Chem 7: 09/19/24 05:36 09/19/24 05:36 Labs: Abnormal Lab Results - Last 24 Hours (Table) 09/18/24 09/18/24 09/19/24 Range/Units 16:23 19:49 00:04 WBC (4.50-10.00) 10*3/uL Hgb (12.0-15.0) g/dL Immature Gran # (0.00-0.04) 10*3/uL Neutrophils # (1.80-7.70) 10*3/uL Lymphocytes # (0.90-5.00) 10*3/uL Eosinophils # (0.04-0.35) 10*3/uL Sodium (137-145) mmol/L Potassium (3.5-5.1) mmol/L Chloride (98-107) mmol/L Carbon Dioxide (22-30) mmol/L BUN (7-17) mg/dL Glucose (74-99) mg/dL POC Glucose (mg/dL) 134 H 122 H (70-110) mg/dL Urine Glucose (UA) 2+ H (Negative) Ur Leukocyte Esterase Trace H (Negative) Urine WBC 9 H (0-5) /hpf Urine Bacteria Rare H (None) /hpf Hyaline Casts 3 H (0-2) /lpf 09/19/24 09/19/24 09/19/24 Range/Units 05:36 05:36 06:04 WBC 20.11 H (4.50-10.00) 10*3/uL Hgb 15.3 H (12.0-15.0) g/dL Immature Gran # 0.17 H (0.00-0.04) 10*3/uL Neutrophils # 18.99 H (1.80-7.70) 10*3/uL Lymphocytes # 0.21 L (0.90-5.00) 10*3/uL Eosinophils # 0.00 L (0.04-0.35) 10*3/uL Sodium 128 L (137-145) mmol/L Potassium 3.4 L (3.5-5.1) mmol/L Chloride 79 L (98-107) mmol/L Carbon Dioxide 41 H* (22-30) mmol/L BUN 46 H (7-17) mg/dL Glucose 136 H (74-99) mg/dL POC Glucose (mg/dL) 138 H (70-110) mg/dL Urine Glucose (UA) (Negative) Ur Leukocyte Esterase (Negative) Urine WBC (0-5) /hpf Urine Bacteria (None) /hpf Hyaline Casts (0-2) /lpf 09/19/24 Range/Units 11:36 WBC (4.50-10.00) 10*3/uL Hgb (12.0-15.0) g/dL Immature Gran # (0.00-0.04) 10*3/uL Neutrophils # (1.80-7.70) 10*3/uL Lymphocytes # (0.90-5.00) 10*3/uL Eosinophils # (0.04-0.35) 10*3/uL Sodium (137-145) mmol/L Potassium (3.5-5.1) mmol/L Chloride (98-107) mmol/L Carbon Dioxide (22-30) mmol/L BUN (7-17) mg/dL Glucose (74-99) mg/dL POC Glucose (mg/dL) 122 H (70-110) mg/dL Urine Glucose (UA) (Negative) Ur Leukocyte Esterase (Negative) Urine WBC (0-5) /hpf Urine Bacteria (None) /hpf Hyaline Casts (0-2) /lpf Assessment and Plan Assessment: Acute on chronic hypoxemic respiratory failure. Acute on chronic heart failure, with preserved ejection fraction. Chronic right-sided heart failure with severe pulmonary hypertension, and cor pulmonale. Moderate pericardial effusion. Severe pulmonary hypertension. Left pleural effusion, status postthoracentesis, September 06, 2024. Trace pneumothorax, S/P thoracentesis. History of panic attacks and generalized anxiety disorder. History of gout. Urinary retention. Hyponatremia. Plan: Plan dated September 18, 2024. The patient continues on oxygen. We will attempt to titrate the FiO2 down. Labs, x-rays, and medications are reviewed. We will continue to follow make recommendations. The patient continues on diuretics and corticosteroids, as well as bronchodilators. Prognosis is guarded. Labs, x-rays, and medications are reviewed. Dictation was produced using [employer] software. Please excuse any grammatical, word or spelling errors. Plan dated September 19, 2024. The patient is now receiving nasal O2, high-frequency, at 11 L/min. In addition, we DC the albuterol, in favor of DuoNebs, 4 times daily and as needed. Will recheck a chest x-ray, and do an ultrasound of left chest, with markings. We also increase Pulmicort to 1 mg. All labs, x-rays, and medications are reviewed. We will continue to follow make recommendations. Hoping to improve the patient's oxygenation, so that she can be discharged. She does have some mild 1+ lower extremity edema. Dictation was produced using [employer] software. Please excuse any grammatical, word or spelling errors. Time with Patient: Less than 30
--- NOTE | 2024-09-19 12:16 | XR ---
EXAMINATION TYPE: XR chest 2V DATE OF EXAM: 09/19/2024 11:33 AM COMPARISON: 09/12/2024 CLINICAL INDICATION: Female, 78 years old with history of Hypoxemia, , TECHNIQUE: AP and lateral views FINDINGS: Hyperinflation. Heart mildly enlarged. Interstitial/vascular prominence persists, possibly slightly i ncreased from prior. Ongoing small left pleural effusion with adjacent left basilar opacity. IMPRESSION: COPD and cardiomegaly. Suspect mild pulmonary vascular congestion. Similar to slightly improved small left pleural effusion with adjacent atelectasis and/or consolidation. [facility], , 09/19/2024 12:13 PM
--- NOTE | 2024-09-19 13:00 | US ---
EXAMINATION TYPE: US chest DATE OF EXAM: 09/19/2024 COMPARISON: Radiograph same day CLINICAL INDICATION: Female, 78 years old with history of shortness of breath, Left pleural effusion; Left pleural effusion. Had it drained earlier this month. TECHNIQUE: Grayscale imaging of the chest. Targeted ultrasound of the posterior lower left hemithora x FINDINGS: EXAM MEASUREMENTS: Left Pleural Effusion pocket size: 6.6 cm Left skin surface to fluid distance: 1.0 cm Lung tissue visualized 1.7 cm in fluid pocket. Left side marked for possible thoracentesis outside the dept. Pulmonologists are able to review the images in the patient?s EMR. IMPRESSIONS: A small to moderate-sized left pleural effusion with underlying atelectatic lung. Marking performed. [facility], , 09/19/2024 12:58 PM
[2024-09-19] MEDS: IPRATROPIUM-ALBUTEROL 3 ML NEB INHALATION SCH (13:01)
--- NOTE | 2024-09-19 13:01 | P.PN ---
Subjective HISTORY OF PRESENT ILLNESS: This is an 78-year-old female patient with no prior cardiac history but medical history significant for chronic hypoxic respiratory failure secondary to COPD and alpha 1 antitrypsin deficiency presented to the hospital with progressive exertional dyspnea associated with progressive bilateral lower extremity edema for the last few days. No symptoms of chest pain or chest discomfort but she felt she was experiencing severe congestions with no fever and no chills and no cough and no sputum production. No other cardiovascular symptoms of dizziness or lightheadedness or any feeling of heart racing or fluttering or presyncope or syncope. She developed severe bilateral lower extremities edema. When she presented to the hospital she was hypoxic requiring high flow oxygen. Normally she is on 2 L of oxygen continuously. Definitely her oxygen requirement has increased within the last few days and she has been doing pulse oximetry at home and noticed that her oxygen saturation has been low. She underwent further evaluation including EKG showing RBBB. NT proBNP came to be elevated at 5000. First set of troponin is unremarkable with chest x-ray showed finding consistent with pulmonary vascular congestions and left pleural effusion but CT scan of the chest showed no evidence of PE. Venous duplex study showed no evidence of DVT as well. The physical examination is remarkable for regular rhythm with a systolic murmur at the right and left upper sternal border with diminished breathing sounds bilaterally and bilateral rhonchi and severe bilateral lower extremities pitting edema September 01, 2024 The patient was seen and evaluated this morning. She is overall feeling better. She still have bilateral lower extremities edema. The pressure remains marginal but appears to be better today which she was started on midodrine yesterday. Am going to stop the midodrine and decrease the dose of Lasix from 40 mg IV twice daily to 20 mg IV twice daily giving the marginally low blood pressure and also giving the finding on the echo including severe pulmonary hypertension and moderate pericardial effusion without tamponade physiology. The physical examination is remarkable for bilateral lower extremities edema. The troponin came to be mildly abnormal and I would consider medical treatment in the absence of any chest pain. September 02, 2024 The patient was seen and evaluated this morning. She is still hypoxic requiring high flow oxygen she still have severe bilateral lower extremities edema. Her pressure is better and with that I am going to increase the dose of Lasix to 40 mg IV twice daily which she is hypokalemic and the potassium is in process to be replaced. The physical examination is remarkable for diminished breathing sounds bilaterally and severe bilateral lower extremities edema. September 03, 2024 The patient was seen and evaluated this morning. The bilateral lower extremitie s edema has somewhat improved but continues to be there. She is on Lasix IV. I would suggest continue the current dose of Lasix IV and will follow-up with the blood work from the morning which is still pending. Otherwise she remains hemodynamically stable. No symptoms of chest pain or chest discomfort. The physical examination is remarkable for moderate bilateral lower extremities pitting edema with diminished breathing sounds bilaterally. Definitely the edema has improved after we increase the dose of Lasix yesterday. 09/04/2024 Patient is seen and examined at bedside this a.m. She is sitting in the chair with a high flow nasal cannula oxygen. 2+ pitting edema bilateral lower extrem ity, mild crackles in lung gupta, minimal wheezing. Alert oriented, reports that symptomatically she feels better since the time for admission. Blood pressure is borderline low with SBP around 90s to 100 mmHg. 09/05/2024 Patient is seen and examined at bedside this a.m. She continues to be on high flow nasal cannula 1-2+ pitting edema bilateral extremity with mild crackles in lung gupta with minimal wheezing Alert oriented Reports symptomatically feeling better. Blood pressure and heart rates are within acceptable ranges kidney function and electrolytes are within acceptable ranges. 09/06/2024 Patient examined this morning at the bedside. She remains on Airvo. She continues to report shortness of breath. She is currently on oral Bumex. She also is complaining of her left knee hurting. Repeat limited echo reveals severe right ventricular and right atrial enlargement, dilated IVC, moderate pericardial effusion mostly anterior. Venous Doppler completed negative for DVT. Patient underwent chest CTA which was negative for pulmonary embolism. Evidence of right heart strain, pulmonary hypertension with bilateral pleural effusions, pulmonary vascular congestion, and cardiomegaly. Moderate to severe emphysema. 09/07/2024 Patient examined this morning at the bedside. She is sitting up in the chair. She continues to report shortness of breath. She denies any chest pain or pressure. She underwent left-sided thoracentesis yesterday with removal of 800 cc. Postprocedure chest x-ray revealed trace pneumothorax. Blood pressure is low in the 90s. 09/08/2024 Patient examined this morning at the bedside. Patient currently denies chest pain or pressure. She reports mild shortness of breath. She remains on IV Lasix per pulmonary medicine. Sodium today 129. Potassium 3.3. BUN 34. Creatinine 0.75. 09/09/2024 Changed from high flow nasal cannula to 12 L nasal cannula supplemental oxygen Blood pressure is borderline low Kidney function is stable with borderline low sodium and potassium Appropriate urine output Negative fluid balance of 1100 cc today last 24 hours 09/10/2024 Patient seen and examined at bedside this a.m., kidney function is stable, potassium is 3.4 Still has mild residual lower extremity edema, on 2 L of nasal cannula supplemental oxygen. 09/11 Patient seen and examined. Blood pressure 110/65, heart rate 80. Patient states that she is feeling much better. 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 She still has a little edema to the lower extremities but she states this is much better. Blood pressure 107/73, heart rate 79, pulse ox 90% on 12 L high flow nasal cannula. Repeat blood work reveals hemoglobin 16.4. Sodium 128, BUN 39 creatinine 0.76, CO2 38. Yesterday, IV Lasix was transitioned to oral by pulmonary medicine. Patient has a negative fluid balance with documented weight loss of 7 kg. 09/12 Patient states that she is a little bit better today. She states she does not have any chest pain or chest pressure or tightness. She has a little dizzy. Edema to the lower extremities is a little better from yesterday. She has been maintained on oral Lasix and yesterday we decreased the frequency of metolazone to once daily due to drop in sodium. Today sodium is 129, potassium 3.9, BUN 39 creatinine 0.83, hemoglobin 16.6.. Blood pressure 100/70, heart rate 90, pulse ox 88% on 12 L nasal cannula. 09/13 Patient seen and examined. No medication changes were made by us yesterday. Patient is on 12 L high flow nasal cannula with pulse ox of 89% and followed by pulmonary medicine. Blood pressure 113/76, heart rate in the 80s. Repeat blood work reveals WBC 10.8, hemoglobin 16.8, sodium 131, potassium 3.4, BUN 39 creatinine 0.81. Patient states that her breathing is okay. She slept okay last night. She denies chest pain. No cough no wheezing. She does have some nausea. She continues to have some lower extremity edema. 09/14 Patient seen and examined. Patient states that her breathing is okay. She denies chest pain. She slept okay last night. She continues to have a little lower extremity edema. Blood pressure 97/64, heart rate in the 80s and 90s, pulse ox 90% on 9 L high flow nasal cannula. Repeat blood work reveals WBC 15, hemoglobin 18, sodium 130, potassium 4, BUN 43 creatinine 0.84 and CO2 40. Patient has a negative fluid balance with documented weight loss. Telemetry sin us rhythm. No medication changes made today. 09/15 Patient seen and examined. She states that her breathing is about the same. She denies having any nausea at this time. She states she did not sleep well last night. She continues to have lower extremity edema. Patient has been continued on oral Lasix as well as metolazone and Aldactone. Blood pressure 113/72, heart rate in the 80s, pulse ox 92% on high flow nasal cannula at 10 L. Patient has a negative fluid balance with documented weight loss. Repeat blood work reveals sodium 128, potassium 3.4, chloride 77, CO2 45, BUN 40 creatinine 0.73. proBNP 18,000. CTA of the chest performed yesterday afternoon revealed no PE. Persistent but improved subcutaneous. Resolved small right pleural effusion. Persistent small to moderate left pleural effusion. Moderate to advanced emphysematous changes redemonstrated. No acute process. Cardiomegaly. Small to moderate. Size pericardial effusion. Evidence of underlying pulmonary artery hypertension and right-sided heart failure. 09/16/2024 Patient examined this morning at the bedside. Patient is sitting up in the chair. Patient denies chest pain or pressure. She reports mild shortness of breath. She reports improvement in her lower extremity swelling. Vital signs are stable. Blood pressure 96/60. She is on 12 L nasal cannula. Sodium 128. Potassium 2.8. CO2 45. BUN 41. Creatinine 0.72. 09/17/2024 Patient examined this morning. Patient is sitting up in the chair. Patient denies chest pain or pressure. She continues to report shortness of breath, unchanged from yesterday. She continues to have lower extremity edema. Patient remains on oral Lasix. Sodium 128. Potassium 2.9. 09/18/2024 Patient examined this morning at the bedside. Patient is sitting up in the chair. Sodium today 129. Potassium 3.8. Carbon dioxide 49. BUN 46. Creatinine 0.68. Patient's Zaroxolyn was discontinued yesterday. She remains on 10 L nasal cannula. 09/19/2024 Patient examined this morning at the bedside. Patient currently denies chest pain or pressure. Her shortness of breath remains unchanged. She is on 12 L nasal cannula. Blood pressure 90/57. PHYSICAL EXAM: VITAL SIGNS: Reviewed. GENERAL: Well-developed in no acute distress. NECK: Supple. No JVD or thyromegaly LUNGS: Respirations even and unlabored. Lungs diminished bilaterally HEART: Regular rate and rhythm. S1 and S2 heard. Systolic murmur noted. EXTREMITIES: Normal range of motion. No clubbing or cyanosis. Peripheral pulses intact. 12+ bilateral lower extremity edema ASSESSMENT: Shortness of breath Acute on chronic hypoxic respiratory failure Acute on chronic heart failure with preserved EF Acute Cor pulmonale Moderate pericardial effusion Severe pulmonary hypertension Left pleural effusion, status post thoracentesis with removal 800 cc, 09/06/2024 Trace pneumothorax, post thoracentesis Hyponatremia Hypokalemia PLAN: Continue current cardiac medications including Revatio, aspirin, Farxiga, Lasix, Aldactone, and potassium supplementation Continue to monitor kidney function and electrolytes. Repeat in a.m. Daily weights, accurate intake and output, and monitoring of kidney function Chest x-ray ordered. Await results. Further recommendations pending patient course Nurse practitioner note has been reviewed by physician. Signing provider agrees with the documented findings, assessment, and plan of care documented by LOG YARD MANAGER as a scribe. Objective - Vital Signs Vital signs: Vital Signs Temp 97.4 F L 09/19/24 08:12 Pulse 90 09/19/24 08:30 Resp 20 09/19/24 08:12 BP 93/54 09/19/24 08:12 Pulse Ox 90 L 09/19/24 08:12 FiO2 70 09/09/24 08:20 Intake & Output 09/18/24 09/19/24 09/19/24 18:59 06:59 18:59 Intake Total 914 287 Output Total 1100 1400 400 Balance -186 -1113 -400 Weight 58.5 kg Intake: IV 10 Invasive Line 6 10 Oral 914 277 Output: Urine 1100 1400 400 Other: Voiding Method Bedside Commode Bedside Commode # Voids 1 # Bowel Movements 1 1 1 - Labs CBC & Chem 7: 09/19/24 05:36 09/19/24 05:36 Labs: Abnormal Lab Results - Last 24 Hours (Table) 09/18/24 09/18/24 09/18/24 Range/Units 11:05 16:23 19:49 WBC (4.50-10.00) 10*3/uL Hgb (12.0-15.0) g/dL Immature Gran # (0.00-0.04) 10*3/uL Neutrophils # (1.80-7.70) 10*3/uL Lymphocytes # (0.90-5.00) 10*3/uL Eosinophils # (0.04-0.35) 10*3/uL Sodium (137-145) mmol/L Potassium (3.5-5.1) mmol/L Chloride (98-107) mmol/L Carbon Dioxide (22-30) mmol/L BUN (7-17) mg/dL Glucose (74-99) mg/dL POC Glucose (mg/dL) 173 H 134 H 122 H (70-110) mg/dL Urine Glucose (UA) (Negative) Ur Leukocyte Esterase (Negative) Urine WBC (0-5) /hpf Urine Bacteria (None) /hpf Hyaline Casts (0-2) /lpf 09/19/24 09/19/24 09/19/24 Range/Units 00:04 05:36 05:36 WBC 20.11 H (4.50-10.00) 10*3/uL Hgb 15.3 H (12.0-15.0) g/dL Immature Gran # 0.17 H (0.00-0.04) 10*3/uL Neutrophils # 18.99 H (1.80-7.70) 10*3/uL Lymphocytes # 0.21 L (0.90-5.00) 10*3/uL Eosinophils # 0.00 L (0.04-0.35) 10*3/uL Sodium 128 L (137-145) mmol/L Potassium 3.4 L (3.5-5.1) mmol/L Chloride 79 L (98-107) mmol/L Carbon Dioxide 41 H* (22-30) mmol/L BUN 46 H (7-17) mg/dL Glucose 136 H (74-99) mg/dL POC Glucose (mg/dL) (70-110) mg/dL Urine Glucose (UA) 2+ H (Negative) Ur Leukocyte Esterase Trace H (Negative) Urine WBC 9 H (0-5) /hpf Urine Bacteria Rare H (None) /hpf Hyaline Casts 3 H (0-2) /lpf 09/19/24 Range/Units 06:04 WBC (4.50-10.00) 10*3/uL Hgb (12.0-15.0) g/dL Immature Gran # (0.00-0.04) 10*3/uL Neutrophils # (1.80-7.70) 10*3/uL Lymphocytes # (0.90-5.00) 10*3/uL Eosinophils # (0.04-0.35) 10*3/uL Sodium (137-145) mmol/L Potassium (3.5-5.1) mmol/L Chloride (98-107) mmol/L Carbon Dioxide (22-30) mmol/L BUN (7-17) mg/dL Glucose (74-99) mg/dL POC Glucose (mg/dL) 138 H (70-110) mg/dL Urine Glucose (UA) (Negative) Ur Leukocyte Esterase (Negative) Urine WBC (0-5) /hpf Urine Bacteria (None) /hpf Hyaline Casts (0-2) /lpf
--- NOTE | 2024-09-19 14:38 | P.PN ---
Subjective Progress Note Date: 09/19/24 Patient is admitted for multifactorial respiratory failure secondary to CHF COPD with acute exacerbation still having hypoxia patient is on 10 L of oxygen patient has diminished air entry into bilateral lung gupta patient has alpha-1 antitrypsin deficiency leading to severe emphysema usually uses oxygen but patient is on high amount of oxygen at this time patient also has chronic right- sided heart failure with severe pulmonary hypertension and cor pulmonale. Patient had a CT of the chest as we are unable to wean her off oxygen CT did not show any pulmonary embolism but did show some pericardial effusion. 09/15/2024 Patient is evaluated today in the follow up. Sitting up in the chair. Continues with significant peripheral edema and pitting up to the thighs. Continues on oral lasix BID. Urine out 2.2 L so far today. IV lasix x 1 dose given also. Patient continues on 10 L of oxygen via nasal cannula. Labs today reveal sodium 128, potassium 3.4, CO2 45, BNP 18,000. Dr Allan in to see patient today for routine care and trimming of the nails on bilateral feet. 09/16/2024 Patient is evaluated again sitting up in the chair. Patients peripheral edema slightly improved. Over 4L of urine output yesterday. Remains on oral lasix 40 mg BID. Oxygen was increased to 12L hi flow. Labs today reveal white blood cell count 15.33, hgb 16.5, sodium 128, BUN 41, creatinine 0.72. Chloride 74, CO2 45. 09/17/2024 Patient is evaluated today sitting up in the chair. Patient continues with peripheral edema. Remains on 10 L of oxygen via nasal cannula. Not having any significant complaints. On fluid restriction 1200 CC. Labs today reveal white blood cell count of 20.47, hgb 16.8, sodium 128, potassium 3.4, CO2 48, chloride 73,. 09/18/2024 Patient is evaluated in follow-up today by the chair family at the bedside. She continues with significant lower extremity peripheral edema. She remains on times of oxygen via nasal cannula. She continues on Lasix 40 mg oral twice daily. White blood cell count today is 19.14, sodium level 129. BUN 46 creatinine 0.68. Heart rate in the 100s. 09/19/2024 Patient is eval in follow-up on the medical floor. Repeat chest x-ray reveals COPD and cardiomegaly suggest mild pulmonary vascular congestion. Similar to slightly improved small pleural effusion with adjacent atelectasis and/or consolidation. Subsequently patient went for a chest ultrasound which reveals a small to moderate 6.6 cm left pleural effusion pocket size. Was marked for possible thoracentesis. White blood cell count elevated at 20.11. Sodium level of 128 potassium 3.4, BUN of 46 creatinine 0.68. His CRP level was elevated at 5.7. Her viral panel repeat was negative for influenza RSV and COVID. ID was consulted for further management of the leukocytosis. Review of Systems Constitutional: Denied any fatigue denied any fever. Cardio vascular: denied any chest pain, palpitations Gastrointestinal: denied any nausea, vomiting, diarrhea Pulmonary: Denied any shortness of breath cough Neurologic denied any new focal deficits All inpatient medications were reviewed and appropriate changes in these medications as dictated in the interval history and assessment and plan. PHYSICAL EXAMINATION: GENERAL: The patient is alert and oriented x3, not in any acute distress. Thin built cachectic female HEENT: Pupils are round and equally reacting to light. EOMI. No scleral icterus. No conjunctival pallor. Normocephalic, atraumatic. No pharyngeal erythema. No thyromegaly. CARDIOVASCULAR: S1 and S2 present. No murmurs, rubs, or gallops. PULMONARY: Decreased air entry to bilateral lung gupta ABDOMEN: Soft, nontender, nondistended, normoactive bowel sounds. No palpable organomegaly. MUSCULOSKELETAL: No joint swelling or deformity. EXTREMITIES: No cyanosis, clubbing, +1 pitting lower extremity edema NEUROLOGICAL: Gross neurological examination did not reveal any focal deficits. SKIN: No rashes. Assessment and plan -Acute on chronic hypoxic and hypercapnic respiratory failure secondary to COPD exacerbation right-sided heart failure pulmonary hypertension -Small to moderate left-sided pleural effusion possible thoracentesis patient is s/p thoracentesis of the left on September 06. At that time 800 mL of fluid was removed. -Hyponatremia secondary to excessive diuresis - Acute cor pulmonale - Leukocytosis likely steroid-induced - Congestive heart failure with preserved ejection fraction or diastolic dysfunction - Severe pulmonary hypertension - Trace pneumothorax with status post thoracentesis - Mild to moderate pericardial effusion - Urinary retention patient has a Alba catheter in place DVT prophylaxis: Patient will be started on low-dose Lovenox Continue oral lasix 40 mg BID and strict intake and output monitoring. Steroids have been decreased to oral prednisone 40 mg daily. Wean oxygen as tolerated. Repeat CBC, BMP in the AM. Cardiology and pulmonology following. Infectious disease was consulted. The impression and plan of care has been dictated by Neli Redding, Nurse Practitioner as directed. Dr. Abe MD I have performed a history and physical examination and medical decision making of this patient, discussed the same with the dictator, and agree with the dictators assessment and plan as written, documented as a scribe. Based on total visit time, I have performed more than 50% of this visit. Objective - Vital Signs Vital signs: Vital Signs Temp 97.3 F L 09/19/24 11:31 Pulse 93 09/19/24 11:31 Resp 20 09/19/24 11:31 BP 90/57 09/19/24 11:31 Pulse Ox 90 L 09/19/24 11:31 FiO2 70 09/09/24 08:20 Intake & Output 09/18/24 09/19/24 09/19/24 18:59 06:59 18:59 Intake Total 914 287 720 Output Total 1100 1400 900 Balance -186 -1113 -180 Weight 58.5 kg Intake: IV 10 Invasive Line 6 10 Oral 914 277 720 Output: Urine 1100 1400 900 Other: Voiding Method Bedside Commode Bedside Commode # Voids 1 # Bowel Movements 1 1 1 - Labs CBC & Chem 7: 09/19/24 05:36 09/19/24 05:36 Labs: Abnormal Lab Results - Last 24 Hours (Table) 09/18/24 09/18/24 09/19/24 Range/Units 16:23 19:49 00:04 WBC (4.50-10.00) 10*3/uL Hgb (12.0-15.0) g/dL Immature Gran # (0.00-0.04) 10*3/uL Neutrophils # (1.80-7.70) 10*3/uL Lymphocytes # (0.90-5.00) 10*3/uL Eosinophils # (0.04-0.35) 10*3/uL Sodium (137-145) mmol/L Potassium (3.5-5.1) mmol/L Chloride (98-107) mmol/L Carbon Dioxide (22-30) mmol/L BUN (7-17) mg/dL Glucose (74-99) mg/dL POC Glucose (mg/dL) 134 H 122 H (70-110) mg/dL C-Reactive Protein (<1.0) mg/dL Urine Glucose (UA) 2+ H (Negative) Ur Leukocyte Esterase Trace H (Negative) Urine WBC 9 H (0-5) /hpf Urine Bacteria Rare H (None) /hpf Hyaline Casts 3 H (0-2) /lpf 09/19/24 09/19/24 09/19/24 Range/Units 05:36 05:36 06:04 WBC 20.11 H (4.50-10.00) 10*3/uL Hgb 15.3 H (12.0-15.0) g/dL Immature Gran # 0.17 H (0.00-0.04) 10*3/uL Neutrophils # 18.99 H (1.80-7.70) 10*3/uL Lymphocytes # 0.21 L (0.90-5.00) 10*3/uL Eosinophils # 0.00 L (0.04-0.35) 10*3/uL Sodium 128 L (137-145) mmol/L Potassium 3.4 L (3.5-5.1) mmol/L Chloride 79 L (98-107) mmol/L Carbon Dioxide 41 H* (22-30) mmol/L BUN 46 H (7-17) mg/dL Glucose 136 H (74-99) mg/dL POC Glucose (mg/dL) 138 H (70-110) mg/dL C-Reactive Protein (<1.0) mg/dL Urine Glucose (UA) (Negative) Ur Leukocyte Esterase (Negative) Urine WBC (0-5) /hpf Urine Bacteria (None) /hpf Hyaline Casts (0-2) /lpf 09/19/24 09/19/24 Range/Units 11:36 12:45 WBC (4.50-10.00) 10*3/uL Hgb (12.0-15.0) g/dL Immature Gran # (0.00-0.04) 10*3/uL Neutrophils # (1.80-7.70) 10*3/uL Lymphocytes # (0.90-5.00) 10*3/uL Eosinophils # (0.04-0.35) 10*3/uL Sodium (137-145) mmol/L Potassium (3.5-5.1) mmol/L Chloride (98-107) mmol/L Carbon Dioxide (22-30) mmol/L BUN (7-17) mg/dL Glucose (74-99) mg/dL POC Glucose (mg/dL) 122 H (70-110) mg/dL C-Reactive Protein 5.7 H (<1.0) mg/dL Urine Glucose (UA) (Negative) Ur Leukocyte Esterase (Negative) Urine WBC (0-5) /hpf Urine Bacteria (None) /hpf Hyaline Casts (0-2) /lpf Assessment and Plan Time with Patient: Less than 30
[2024-09-19] MEDS: FLUCONAZOLE 100 MG TAB PO SCH (15:52)
[2024-09-19 16:24] LABS: Glucose,Whole Blood 168 mg/dL (70-110)
[2024-09-19 20:29] LABS: Glucose,Whole Blood 149 mg/dL (70-110)
[2024-09-19] MEDS: BUDESONIDE 0.5 MG/2 ML NEBU INHALATION SCH (20:34)
--- NOTE | 2024-09-19 22:31 | P.CONS ---
History of Present Illness - Reason for Consult Consult date: 09/19/24 Unexplained leukocytosis Requesting physician: Neli Redding - Chief Complaint Shortness of breath x days - History of Present Illness Patient is a 78-year-old female with a past medical history significant for COPD heart failure gout anxiety panic disorder hypertension presenting to the hospital about 3 weeks ago for evaluation of difficulty in breathing and this patient has been under the care of medicine cardiology and pulmonary services and has been treated for COPD and CHF exacerbation, patient did have thoracocentesis on 09/06/2024 and the pleural fluid culture has been negative patient has been afebrile throughout her hospital stay has been on s upplemental oxygen currently on 12 L patient did have normal white count until 09/11/2024 and her white count has been slowly trending upward over the last 1 week with a white count of 20.11 today prompting this consultation patient denies having any headache or URI symptoms she is breathing slightly comfortably still requiring significant supplemental oxygen but denies any chest pain or worsening cough no sputum production no nausea vomiting no choking of food no abdominal pain no diarrhea or urinary symptoms. Patient did have white count 20.11 with a left shift creatinine 0.66 UA has been trace leukocyte esterase and 9 WBC influenza RSV COVID testing has been negative chest x-ray COPD cardi omegaly suspect mild pulmonary vascular congestion similar to slightly improve small left effusion patient has received Solu-Medrol during this hospital stay and is currently on oral prednisone Review of Systems Positive point and negatives has been mentioned in the HPI, complete review of systems was performed and all other systems are negative Past Medical History Past Medical History: Heart Failure, COPD, Hypertension Additional Past Medical History / Comment(s): Gout, anxiety, panic disorder History of Any Multi-Drug Resistant Organisms: None Reported Past Surgical History: No Surgical Hx Reported Past Anesthesia/Blood Transfusion Reactions: No Reported Reaction Past Psychological History: No Psychological Hx Reported Smoking Status: Former smoker Past Alcohol Use History: None Reported Past Drug Use History: None Reported Medications and Allergies Home Medications Medication Instructions Recorded Confirmed Type ALPRAZolam [Xanax] 0.25 - 0.5 mg PO BID PRN 08/30/24 08/30/24 History Albuterol Nebulized [Ventolin 2.5 mg INHALATION RT-QID 08/30/24 08/30/24 History Nebulized] Albuterol Sulfate [Albuterol 2 puff PO RT-Q4H PRN 08/30/24 08/30/24 History Sulfate Hfa] Budesonide [Pulmicort] 0.5 mg INHALATION RT-BID 08/30/24 08/30/24 History Escitalopram Oxalate [Lexapro] 10 mg PO HS 08/30/24 08/30/24 History Formoterol Fumarate [Perforomist] 20 mcg INHALATION RT-BID 08/30/24 08/30/24 History Losartan-Hctz 50-12.5 mg [Hyzaar 1 tab PO HS 08/30/24 08/30/24 History 50-12.5] NIFEdipine XL [Procardia Xl] 30 mg PO HS 08/30/24 08/30/24 History Yupelri 175mcg/3ml 175 mcg INHALATION RT-DAILY 08/30/24 08/30/24 History Allergies Allergy/AdvReac Type Severity Reaction Status Date / Time Penicillins Allergy red streak Verified 08/30/24 17:43 up back of neck lorazepam [From Ativan] AdvReac pain all Verified 08/30/24 17:43 over & insomnia prednisolone AdvReac insomnia Verified 08/30/24 17:43 Physical Exam Vitals: Vital Signs Temp Pulse Pulse Resp BP BP Pulse Ox 09/19/24 11:31 97.3 F L 93 20 90/57 90 L 09/19/24 09:13 94 09/19/24 09:06 96 09/19/24 09:05 96 09/19/24 08:49 92 91 L 09/19/24 08:30 90 09/19/24 08:12 97.4 F L 83 20 93/54 90 L 09/19/24 04:00 97.6 F 81 17 100/54 92 L 09/19/24 00:00 97.7 F 87 20 101/60 87 L 09/18/24 21:34 107 H 09/18/24 21:24 119 H 09/18/24 21:23 119 H 09/18/24 21:14 118 H 09/18/24 19:39 97.6 F 90 24 105/63 88 L 09/18/24 16:28 20 89 L 09/18/24 16:13 72 09/18/24 16:04 86 09/18/24 15:54 98.4 F 93 20 95/61 86 L 09/18/24 14:33 87 Intake and Output 09/18/24 09/19/24 09/19/24 22:59 06:59 14:59 Intake Total 604 720 Output Total 1600 400 400 Balance -996 -400 320 Intake: IV 10 Invasive Line 6 10 Oral 594 720 Output: Urine 1600 400 400 Other: Voiding Method Bedside Commode Bedside Commode # Bowel Movements 1 1 1 Weight 58.5 kg GENERAL DESCRIPTION: Elderly male up in the chair, no distress. No tachypnea or accessory muscle of respiration use. HEENT: Shows Pallor , no scleral icterus. Oral mucous membrane is dry. No pharyngeal erythema or thrush NECK: Trachea central, no thyromegaly. LUNGS: Unlabored breathing. Decreased breath sound at base HEART: S1, S2, regular rate and rhythm. No loud murmur ABDOMEN: Soft, no tenderness , EXTREMITIES: No edema of feet. SKIN: No rash, no masses palpable. NEUROLOGICAL: The patient is awake, alert, oriented x3, mood and affect normal. Results CBC & Chem 7: 09/19/24 05:36 09/19/24 05:36 Labs: Abnormal Lab Results - Last 24 Hours (Table) 09/18/24 09/18/24 09/19/24 Range/Units 16:23 19:49 00:04 WBC (4.50-10.00) 10*3/uL Hgb (12.0-15.0) g/dL Immature Gran # (0.00-0.04) 10*3/uL Neutrophils # (1.80-7.70) 10*3/uL Lymphocytes # (0.90-5.00) 10*3/uL Eosinophils # (0.04-0.35) 10*3/uL Sodium (137-145) mmol/L Potassium (3.5-5.1) mmol/L Chloride (98-107) mmol/L Carbon Dioxide (22-30) mmol/L BUN (7-17) mg/dL Glucose (74-99) mg/dL POC Glucose (mg/dL) 134 H 122 H (70-110) mg/dL Urine Glucose (UA) 2+ H (Negative) Ur Leukocyte Esterase Trace H (Negative) Urine WBC 9 H (0-5) /hpf Urine Bacteria Rare H (None) /hpf Hyaline Casts 3 H (0-2) /lpf 04/15/25 04/15/25 04/15/25 Range/Units 05:36 05:36 06:04 WBC 20.11 H (4.50-10.00) 10*3/uL Hgb 15.3 H (12.0-15.0) g/dL Immature Gran # 0.17 H (0.00-0.04) 10*3/uL Neutrophils # 18.99 H (1.80-7.70) 10*3/uL Lymphocytes # 0.21 L (0.90-5.00) 10*3/uL Eosinophils # 0.00 L (0.04-0.35) 10*3/uL Sodium 128 L (137-145) mmol/L Potassium 3.4 L (3.5-5.1) mmol/L Chloride 79 L (98-107) mmol/L Carbon Dioxide 41 H* (22-30) mmol/L BUN 46 H (7-17) mg/dL Glucose 136 H (74-99) mg/dL POC Glucose (mg/dL) 138 H (70-110) mg/dL Urine Glucose (UA) (Negative) Ur Leukocyte Esterase (Negative) Urine WBC (0-5) /hpf Urine Bacteria (None) /hpf Hyaline Casts (0-2) /lpf 09/19/24 Range/Units 11:36 WBC (4.50-10.00) 10*3/uL Hgb (12.0-15.0) g/dL Immature Gran # (0.00-0.04) 10*3/uL Neutrophils # (1.80-7.70) 10*3/uL Lymphocytes # (0.90-5.00) 10*3/uL Eosinophils # (0.04-0.35) 10*3/uL Sodium (137-145) mmol/L Potassium (3.5-5.1) mmol/L Chloride (98-107) mmol/L Carbon Dioxide (22-30) mmol/L BUN (7-17) mg/dL Glucose (74-99) mg/dL POC Glucose (mg/dL) 122 H (70-110) mg/dL Urine Glucose (UA) (Negative) Ur Leukocyte Esterase (Negative) Urine WBC (0-5) /hpf Urine Bacteria (None) /hpf Hyaline Casts (0-2) /lpf Assessment and Plan (1) Leukocytosis Current Visit: Yes Status: Acute Code(s): D72.829 - ELEVATED WHITE BLOOD CELL COUNT, UNSPECIFIED SNOMED Code(s): 226191920 (2) Penicillin allergy Current Visit: Yes Status: Acute Code(s): Z88.0 - ALLERGY STATUS TO PENICILLIN SNOMED Code(s): 42912073 Plan: 1patient with elevated white count over the last 1 week and this patient has been in the hospital for almost 3 weeks before this initial consultation and has been treated for CHF exacerbation did require thoracocentesis on 09/06/2024 and those culture have been negative patient did not have any fever during this hospital stay does not look toxic has been exposed to steroids questionable steroid effect versus oropharyngeal candidiasis 2-we will check blood cultures and inflammatory markers 3-empirically start the patient on Diflucan and see clinical response Family at the bedside question concern answered We will follow on clinical condition and cultures to further adjust medication if needed Thank you for this consultation we will follow the patient along with you Dictation was produced using [employer] dictation software. please excuse any grammatical, word or spelling errors. Time with Patient: Greater than 30
[2024-09-20 06:34] LABS: Glucose,Whole Blood 106 mg/dL (70-110)
[2024-09-20 06:53] LABS: Basophils # (A) 0.03 10*3/uL (0.00-0.10); Basophils % (A) 0.2 %; Eosinophils # (A) 0.02 10*3/uL (0.04-0.35); Eosinophils % (A) 0.1 %; HCT 40.9 % (37.2-46.3); HGB 14.3 g/dL (12.0-15.0); Lymphocytes # (A) 0.59 10*3/uL (0.90-5.00); Lymphocytes % (A) 3.1 %; MCH 30.9 pg (27.0-32.0); MCV 88.3 fL (80.0-97.0); Monocytes # (A) 0.83 10*3/uL (0.20-1.00); Monocytes % (A) 4.4 %; Neutrophils # (A) 17.41 10*3/uL (1.80-7.70); Neutrophils % (A) 91.4 %; Platelet Count 224 10*3/uL (140-440); RBC 4.63 10*6/uL (4.10-5.20); RDW 15.9 % (11.5-14.5); WBC 19.03 10*3/uL (4.50-10.00)
[2024-09-20 07:13] LABS: African American GFR (CKD) >90 (>60 ml/min/1.73 sqM); Blood Urea Nitrogen 43 mg/dL (7-17); Calcium 9.3 mg/dL (8.4-10.2); Chloride 79 mmol/L (98-107); Glucose 88 mg/dL (74-99); Non-African American GFR(CKD) 83 (>60 ml/min/1.73 sqM); Potassium 3.2 mmol/L (3.5-5.1); Sodium 129 mmol/L (137-145)
[2024-09-20 07:23] LABS: Anion Gap 12 mmol/L; Carbon Dioxide 38 mmol/L (22-30)
[2024-09-20] MEDS: POTASSIUM CHLORIDE ER 20 MEQ TAB.ER PO STA (10:08)
[2024-09-20 11:32] LABS: Glucose,Whole Blood 156 mg/dL (70-110)
--- NOTE | 2024-09-20 12:33 | P.PN ---
Subjective Progress Note Date: 09/20/24 Principal diagnosis: Congestive heart failure. This is an 78-year-old female patient with no prior cardiac history but medical history significant for chronic hypoxic respiratory failure secondary to COPD and alpha 1 antitrypsin deficiency presented to the hospital with progressive exertional dyspnea associated with progressive bilateral lower extremity edema for the last few days. No symptoms of chest pain or chest discomfort but she felt she was experiencing severe congestions with no fever and no chills and no cough and no sputum production. No other cardiovascular symptoms of dizziness or lightheadedness or any feeling of heart racing or fluttering or presyncope or syncope. She developed severe bilateral lower extremities edema. When she presented to the hospital she was hypoxic requiring high flow oxygen. Normally she is on 2 L of oxygen continuously. Definitely her oxygen requirement has increased within the last few days and she has been doing pulse oximetry at home and noticed that her oxygen saturation has been low. She underwent further evaluation including EKG showing RBBB. NT proBNP came to be elevated at 5000. First set of troponin is unremarkable with chest x-ray showed finding consistent with pulmonary vascular congestions and left pleural effusion but CT scan of the chest showed no evidence of PE. Venous duplex study showed no evidence of DVT as well. The physical examination is remarkable for regular rhythm with a systolic murmur at the right and left upper sternal border with diminished breathing sounds bilaterally and bilateral rhonchi and severe bilateral lower extremities pitting edema. I initially saw this patient in my office. She was hypoxic and she was in significant volume overload with extensive lower extremit y edema. I directed this patient to the Emergency Department. After being in the hospital for around 3 days, the patient remained hypoxic and the patient remains on Airvo at 45 L with an FiO2 of 65%. Based on that, a pulmonary consultation was requested. I reviewed the CT of the chest that was done on this patient. The patient has extensive emphysematous changes bilaterally and the patient also has a moderate-sized left-sided pleural effusion. No airspace disease. No consolidation. No pneumonias. There is also a new moderate to small size pericardial effusion. Echocardiogram was completed on 08/31/2024 and the patient was found to have a preserved LV function with an EF of around 65% and the patient also had severe RV dilatation, reduced RV global systolic function and severe pulmonary hypertension along with moderate pericardial effusion without signs of any tamponade. The patient had severe tricuspid regurgitation. Estimated right ventricular systolic pressure was 94. For now, the patient is on Lasix 40 mg IV every 12 hours. Monitoring her fluid balance has been essentially negative and the patient has been -2.2 L over the past 24 hours. Most recent electrolytes show a sodium level of 132, potassium of 3.6, BUN 31 with a creatinine 0.7. The white cell count is at 8.8 with a hemoglobin 17.3. She is currently on Lasix 40 mg IV every 12 hours. She is also on Ald actone 25 mg p.o. daily. She remains on IV heparin. The procalcitonin level was 0.08. Troponins were nonelevated. On 09/05/2024, the patient is being seen for a follow-up. The patient is calm and comfortable. The patient is currently on Airvo 45 L with an FiO2 of 65%. She remains on Bumex 1 mg p.o. twice daily and Aldactone 25 mg p.o. daily. She has been diuresing well over the past several days and the patient has been negative fluid balance of 1.1 L over the past 24 hours. No significant shortness of breath at rest. Continues to have significant amount of edema lower extremities bilaterally. The white cell count is at 8.4 with a hemoglobin 17.4 and a platelet count of 167. BUN is 30 with a creatinine of of 0.7. Sodium level is at 132 and a potassium level is at 3.5. Viral screen was negative. Chest x-ray from yesterday was consistent with COPD with chronic emphysematous changes and cardiomegaly and small left-sided pleural effusion. The patient also was noted to have a moderate-sized pericardial effusion without signs of tamponade. The patient was taken off the IV Lasix and the patient was started on Bumex in combination with Aldactone. 09/06/2024, the patient remains on Airvo 45 L with FiO2 of 50%. The fluid balance has been +125 cc over the past 24 hours. Based on that, making recommendations to start the patient on Lasix drip at 5 mg an hour. She continues to have significant amount of edema lower extremities bilaterally. Further workup was ordered by the medical group including a Doppler of lower extremity that showed no evidence of any DVT and CTA of the chest that showed no evidence of any pulmonary embolism. There was extensive bilateral severe emphysematous changes and a chronic left-sided pleural effusion. Based on that, I performed a bedside thoracentesis this patient and I drained approximately 800 cc of pleural fluid from the left lung. The patient tolerated the procedure well without any complications. The fluid will be sent for analysis. The white cell count is 8.4, hemoglobin is 17.4 and platelet count of 167. BUN is 30 with a creatinine of 0.7 and sodium is at 132 and a potassium level is at 3.5. 09/07/2024, the patient is being seen for a follow-up. The patient remains on Airvo at 45 L and FiO2 of 65%. Pulse ox is in the order of 92%. Remains dependent on high flow oxygen. She continues to diurese with Lasix drip at 5 mg an hour. She is postthoracentesis and a total of 800 cc of pleural fluid was aspirated from the left lung. The pleural fluid was a transudate. The chemistry that showed low LDH and low protein. The white cell count was also low with a lymphocytic predominance. The patient has no specific complaints. The white cell count is at 5.6, hemoglobin is 16.6 and a platelet count is at 153. Sodium is at 130, BUN 29 with a creatinine of 0.7. K level is at 3.4. Remains on DuoNeb updrafts. Will start IV Solu-Medrol. 09/08/2024, the patient is being seen for a follow-up. Remains on Airvo 40 L and FiO2 of 65%. Currently on Lasix drip at 5 mg an hour. Also on Zaroxolyn 5 mg p.o. twice a day.. She is also on a combination of bronchodilators and IV Solu- Medrol. Unfortunately, no significant improvement in oxygenation over the past 24 hours and will continue to monitor. The white cell count of 9.5, hemoglobin is at 15.6 and a platelet count of 156. Sodium levels at 129, potassium level 3.3. BUN is 34 with a creatinine of 0.7. Procalcitonin level is at 0.08. Cortisol level is at 32. Pleural fluid aspirated from the left lung was consistent with a transudate. On 09/09/2024, the patient was taken off the Airvo and the patient was placed on 12 L of oxygen by nasal cannula. Current pulse ox is around 88%. She is calm and comfortable. Denies having any new complaints. I am not sure if the patient is having accurate input output measurement. Nevertheless, based on the fluid balance, she is +500 cc over the past 24 hours. She is off the Lasix drip and the patient is currently receiving Lasix 40 mg IV every 12 hours. She is also on Zaroxolyn 5 mg p.o. twice a day. He is also on Aldactone 25 mg p.o. daily. Doing well. Afebrile. Hemodynamically stable. Blood work from today shows a white cell count of 10.3, hemoglobin of 15 and a platelet count of 176. BUN 36 with a creatinine of 0.7. Sodium level is at 128. No other significant events otherwise for now. 09/10/2024, the patient is doing well on 12 L of oxygen by nasal cannula. Pulse ox is ranging between 88 to 92%. No specific complaints. She still diuresing with a combination of Zaroxolyn and IV Lasix. There is some residual lower extremity edema. The white cell count of 8.7 with a hemoglobin of 6.4 and a platelet count of 161. Patient also has a stable level of 127, potassium level of 3.4,, chloride 86, BUN is 40 with a creatinine of 0.6. Patient was seen today on 09/11/2024, remains on the cardiac floor, remains on 12 L high flow nasal cannula, O2 saturation is 92%. Patient has been diuresing wit different diuretics including Zaroxolyn and Lasix, does not seem to be in distress Patient had thoracentesis done by Dr. San about 5 days ago, cytology was negative for malignancy, fluid was mostly transudative in nature. WBC is 9.3 hemoglobin 16.4 electrolytes are relatively normal except of sodium 128, BUN is 39 creatinine 0.76 hemodynamically the patient is stable, clinically she feels better, breathing easier, still being followed by many consultants including cardiology, patient is responding to diuretics but nonetheless she still requiring significant amount of FiO2. Patient was seen today on 09/12/2024, patient is feeling better today, less shortness of breath, no chest pain, no chest pressure, no tightness, patient remains on diuretics, she is on oral Lasix, cardiology is handling diuretics patient had a follow-up chest x-ray with small recurrent left pleural effusion noted, some atelectasis, patient is still requiring relatively high FiO2, on 12 L nasal cannula. No plans to perform thoracentesis on this patient since the size of the fluid is #1 way too small, and patient had previous thoracentesis the fluid was transudative in nature. CT angiogram of the chest on admission showed no evidence of pulmonary embolism on this patient. Seen today on09/13/24, patient is clinically feeling better, however she remains on high FiO2 at 12 L, O2 sat show is marginal. Chest x-ray showed small left pleural effusion, previous CT angiogram of the chest to rule out pulmonary embolism patient remains on diuretics, she does have pulmonary hypertension, overall not much of a change in the last few days. Basically about the same. However she could not be discharged home on 12 L nasal cannula and we are continuing diuretics. Also on bronchodilators Patient was seen today , clinically improving but her FiO2 requirement remains high on 12 L high flow nasal cannula titrated down to 9 L and maintain her O2 saturation in the low 90s. Patient has very minimal small left pleural effusion to explain her profound hypoxia, hence today I recommended a CT angiogram on this patient. And this is pending. My index of suspicion for pulmonary embolism is rather low but considering her ongoing hypoxia it is best to be safe and address that accordingly. She did have CT angiogram on her initial presentation and that was negative for PE. WBC count 15.17 hemoglobin is 18.2 electrolytes are normal renal profile is relatively normal bicarb is 40. Patient was seen today on 09/15/2024, patient remains about the same, clinically better but still requiring high O2 flow, she is now on 10 L high flow nasal cannula, CT angiogram of the chest showed no evidence of pulmonary embolism, the effusion is very small, and clearly not contributing to her hypoxia much. Patient remains on diuretics, remains on bronchodilators, clinically better but still requiring high FiO2. Labs today were reviewed bicarb is 45 renal profile is normal sodium is 128 Seen today on 09/16/2024, basically about the same, remains on high flow nasal cannula at 12 L today, O2 sats is marginal, patient does not seem to be showing any significant improvement whatsoever. Clinically she seems to be comfortable, and not in distress. WBC is 15.3 hemoglobin 16.5 electrolytes are abnormal with low sodium low potassium low chloride elevated bicarb, BUN is 41 creatinine 0.72, electrolytes are being addressed by admitting physician. Seen today on 09/17/2024, she is now on 10 L high flow nasal cannula, remains marginal at best, patient is not symptomatic, but she desaturates easily down to the 80s when her FiO2 is below 10 L. Patient is comfortable, remains on diuretics, remains on bronchodilators, remains on steroids, not much of a change has been noticed over the last 1 week. WBC count is 20.47 hemoglobin 16.8 sodium is low at 128 potassium 2.9 bicarb is 48. Is 44 creatinine 0.75 Progress note dated September 18, 2024. This is an 78-year-old female seen today in room 351. The patient was admitted with a diagnosis of CHF. Currently she remains on 10 L high flow O2. Saturations are 90 to 91%. The patient is not receiving any IV fluids. Current laboratory data includes a white count of 19.1, hemoglobin 15.7, hematocrit 45.3, and a platelet count of 231,000. Sodium 129, potassium 3.8, chlorides 76, and CO2 49, BUN 46, and creatinine 0.68. Glucose 173. Calcium 9.6 with a magnesium of 1.8. CTA done on September 14 shows no evidence of pulmonary embolism, but improved subcutaneous edema. There is a small right pleural effusion, and a small to moderate size left pleural effusion. Progress note dated September 19, 2024. 78-year-old female seen again in room 351. She continues on high flow nasal O2 at 11 L/min. She is not receiving any IV fluids. Today we increased her Pulmicort up to 1 mg, twice a day, we also DC albuterol, and add DuoNebs, 4 times daily and as needed. Will check a chest x-ray, and will do an ultrasound of the left chest, to see if the effusion, is large enough to do thoracentesis. Current laboratory data includes a white count of 20.1, hemoglobin 15.3, hematocrit 43.0, and a platelet count of 209,000. Sodium 128, potassium 3.4, chloride 79, CO2 41, BUN 46, and creatinine 0.68. Glucose is 122. Calcium is 9.4. Progress note dated September 20, 2024. 78-year-old female seen again in room 351. The patient continues on high flow oxygen, at 11 L/min. The ultrasound of the chest showed a relatively small effusion, and there was lung tissue, within the effusion. We had ordered an echocardiogram, with bubble study, to rule out a shunt, but apparently cardiology and the technical services librarian, thought that shunt was unlikely, given the patient's high right-sided pressures. White count is 19, hemoglobin 14.3, hematocrit 40.9, and platelet count was 224,000. Sodium 129, potassium 3.2, chlorides 79, CO2 38, anion gap 12, BUN 43, creatinine 0.69. Close was 156. Calcium 9.3. Chest x-ray suggest COPD, cardiomegaly, and mild pulmonary vascular congestion. There is a small left pleural effusion. Objective - Vital Signs Vital signs: Vital Signs Temp 97.7 F 09/20/24 11:19 Pulse 85 09/20/24 12:00 Resp 18 09/20/24 11:19 BP 88/58 09/20/24 12:00 Pulse Ox 95 09/20/24 11:19 FiO2 70 09/09/24 08:20 Intake & Output 09/19/24 09/20/24 09/20/24 18:59 06:59 18:59 Intake Total 977 20 10 Output Total 1450 1302 200 Balance -473 -1282 -190 Weight 57.7 kg Intake: IV 20 20 10 Invasive Line 6 20 20 10 Oral 957 Output: Urine 1450 1300 200 Stool 2 Other: Voiding Method Bedside Commode Bedside Commode Bedside Commode # Voids 2 1 # Bowel Movements 1 1 1 - Exam No acute distress, oriented 3. Currently on 11 L high flow oxygen. HEENT examination is grossly unremarkable. Mucous membranes are moist. No oral lesions. Neck supple. Full range of motion. No adenopathy thyromegaly or neck vein distention. Cardiovascular examination reveals regular rhythm rate. S1-S2 normal. No S3 or S4. A soft systolic murmur is noted. Lungs reveal basilar crackles, and mild rhonchi. Breath sounds are diminished at the left lung base. Abdomen soft bowel sounds are heard. No masses or tenderness. Extremities are intact. No cyanosis or clubbing. Trace edema noted. Skin is without rash or lesion. Neurologic examination is brief but nonfocal. - Labs CBC & Chem 7: 09/20/24 05:15 09/20/24 05:15 Labs: Abnormal Lab Results - Last 24 Hours (Table) 09/19/24 09/19/24 09/19/24 Range/Units 12:45 16:22 20:28 WBC (4.50-10.00) 10*3/uL Immature Gran # (0.00-0.04) 10*3/uL Neutrophils # (1.80-7.70) 10*3/uL Lymphocytes # (0.90-5.00) 10*3/uL Eosinophils # (0.04-0.35) 10*3/uL Sodium (137-145) mmol/L Potassium (3.5-5.1) mmol/L Chloride (98-107) mmol/L Carbon Dioxide (22-30) mmol/L BUN (7-17) mg/dL POC Glucose (mg/dL) 168 H 149 H (70-110) mg/dL C-Reactive Protein 5.7 H (<1.0) mg/dL 09/20/24 09/20/24 09/20/24 Range/Units 05:15 05:15 11:30 WBC 19.03 H (4.50-10.00) 10*3/uL Immature Gran # 0.15 H (0.00-0.04) 10*3/uL Neutrophils # 17.41 H (1.80-7.70) 10*3/uL Lymphocytes # 0.59 L (0.90-5.00) 10*3/uL Eosinophils # 0.02 L (0.04-0.35) 10*3/uL Sodium 129 L (137-145) mmol/L Potassium 3.2 L (3.5-5.1) mmol/L Chloride 79 L (98-107) mmol/L Carbon Dioxide 38 H (22-30) mmol/L BUN 43 H (7-17) mg/dL POC Glucose (mg/dL) 156 H (70-110) mg/dL C-Reactive Protein (<1.0) mg/dL Assessment and Plan Assessment: Acute on chronic hypoxemic respiratory failure. Acute on chronic heart failure, with preserved ejection fraction. Chronic right-sided heart failure with severe pulmonary hypertension, and cor pulmonale. Moderate pericardial effusion. Severe pulmonary hypertension. Left pleural effusion,S/P thoracentesis, September 06, 2024. Fluid analysis suggested transudate. Trace pneumothorax, S/P thoracentesis. History of panic attacks and generalized anxiety disorder. History of gout. Urinary retention. Hyponatremia. Plan: Plan dated September 18, 2024. The patient continues on oxygen. We will attempt to titrate the FiO2 down. Labs, x-rays, and medications are reviewed. We will continue to follow make recommendations. The patient continues on diuretics and corticosteroids, as well as bronchodilators. Prognosis is guarded. Labs, x-rays, and medications are reviewed. Dictation was produced using [employer] software. Please excuse any grammatical, word or spelling errors. Plan dated September 19, 2024. The patient is now receiving nasal O2, high-frequency, at 11 L/min. In addition, we DC the albuterol, in favor of DuoNebs, 4 times daily and as needed. Will recheck a chest x-ray, and do an ultrasound of left chest, with markings. We also increase Pulmicort to 1 mg. All labs, x-rays, and medications are reviewed. We will continue to follow make recommendations. Hoping to improve the patient's oxygenation, so that she can be discharged. She does have some mild 1+ lower extremity edema. Dictation was produced using [employer] software. Please excuse any grammatical, word or spelling errors. Plan dated September 20, 2024. The patient is still on high flow O2 at 11 L. The patient's chest x-ray suggest some cardiomegaly, a small left-sided pleural effusion, and mild CHF. Ultrasound, showed a small left-sided pleural effusion, with lung tissue intermixed. Previous thoracentesis did result in a small pneumothorax. The fluid was transudative. Labs, x-rays, medications are reviewed. We will continue to follow. Prognosis is guarded. The patient is a DO NOT RESUSCITATE patient. She may have to consider something like palliative care, or hospice, if we cannot titrate down her oxygen requirements. Dictation was produced using [employer] software. Please excuse any grammatical, word or spelling errors. Time with Patient: Less than 30
--- NOTE | 2024-09-20 13:15 | P.PN ---
Subjective HISTORY OF PRESENT ILLNESS: This is an 78-year-old female patient with no prior cardiac history but medical history significant for chronic hypoxic respiratory failure secondary to COPD and alpha 1 antitrypsin deficiency presented to the hospital with progressive exertional dyspnea associated with progressive bilateral lower extremity edema for the last few days. No symptoms of chest pain or chest discomfort but she felt she was experiencing severe congestions with no fever and no chills and no cough and no sputum production. No other cardiovascular symptoms of dizziness or lightheadedness or any feeling of heart racing or fluttering or presyncope or syncope. She developed severe bilateral lower extremities edema. When she presented to the hospital she was hypoxic requiring high flow oxygen. Normally she is on 2 L of oxygen continuously. Definitely her oxygen requirement has increased within the last few days and she has been doing pulse oximetry at home and noticed that her oxygen saturation has been low. She underwent further evaluation including EKG showing RBBB. NT proBNP came to be elevated at 5000. First set of troponin is unremarkable with chest x-ray showed finding consistent with pulmonary vascular congestions and left pleural effusion but CT scan of the chest showed no evidence of PE. Venous duplex study showed no evidence of DVT as well. The physical examination is remarkable for regular rhythm with a systolic murmur at the right and left upper sternal border with diminished breathing sounds bilaterally and bilateral rhonchi and severe bilateral lower extremities pitting edema September 01, 2024 The patient was seen and evaluated this morning. She is overall feeling better. She still have bilateral lower extremities edema. The pressure remains marginal but appears to be better today which she was started on midodrine yesterday. Am going to stop the midodrine and decrease the dose of Lasix from 40 mg IV twice daily to 20 mg IV twice daily giving the marginally low blood pressure and also giving the finding on the echo including severe pulmonary hypertension and moderate pericardial effusion without tamponade physiology. The physical examination is remarkable for bilateral lower extremities edema. The troponin came to be mildly abnormal and I would consider medical treatment in the absence of any chest pain. September 02, 2024 The patient was seen and evaluated this morning. She is still hypoxic requiring high flow oxygen she still have severe bilateral lower extremities edema. Her pressure is better and with that I am going to increase the dose of Lasix to 40 mg IV twice daily which she is hypokalemic and the potassium is in process to be replaced. The physical examination is remarkable for diminished breathing sounds bilaterally and severe bilateral lower extremities edema. September 03, 2024 The patient was seen and evaluated this morning. The bilateral lower extremitie s edema has somewhat improved but continues to be there. She is on Lasix IV. I would suggest continue the current dose of Lasix IV and will follow-up with the blood work from the morning which is still pending. Otherwise she remains hemodynamically stable. No symptoms of chest pain or chest discomfort. The physical examination is remarkable for moderate bilateral lower extremities pitting edema with diminished breathing sounds bilaterally. Definitely the edema has improved after we increase the dose of Lasix yesterday. 09/04/2024 Patient is seen and examined at bedside this a.m. She is sitting in the chair with a high flow nasal cannula oxygen. 2+ pitting edema bilateral lower extrem ity, mild crackles in lung gupta, minimal wheezing. Alert oriented, reports that symptomatically she feels better since the time for admission. Blood pressure is borderline low with SBP around 90s to 100 mmHg. 09/05/2024 Patient is seen and examined at bedside this a.m. She continues to be on high flow nasal cannula 1-2+ pitting edema bilateral extremity with mild crackles in lung gupta with minimal wheezing Alert oriented Reports symptomatically feeling better. Blood pressure and heart rates are within acceptable ranges kidney function and electrolytes are within acceptable ranges. 09/06/2024 Patient examined this morning at the bedside. She remains on Airvo. She continues to report shortness of breath. She is currently on oral Bumex. She also is complaining of her left knee hurting. Repeat limited echo reveals severe right ventricular and right atrial enlargement, dilated IVC, moderate pericardial effusion mostly anterior. Venous Doppler completed negative for DVT. Patient underwent chest CTA which was negative for pulmonary embolism. Evidence of right heart strain, pulmonary hypertension with bilateral pleural effusions, pulmonary vascular congestion, and cardiomegaly. Moderate to severe emphysema. 09/07/2024 Patient examined this morning at the bedside. She is sitting up in the chair. She continues to report shortness of breath. She denies any chest pain or pressure. She underwent left-sided thoracentesis yesterday with removal of 800 cc. Postprocedure chest x-ray revealed trace pneumothorax. Blood pressure is low in the 90s. 09/08/2024 Patient examined this morning at the bedside. Patient currently denies chest pain or pressure. She reports mild shortness of breath. She remains on IV Lasix per pulmonary medicine. Sodium today 129. Potassium 3.3. BUN 34. Creatinine 0.75. 09/09/2024 Changed from high flow nasal cannula to 12 L nasal cannula supplemental oxygen Blood pressure is borderline low Kidney function is stable with borderline low sodium and potassium Appropriate urine output Negative fluid balance of 1100 cc today last 24 hours 09/10/2024 Patient seen and examined at bedside this a.m., kidney function is stable, potassium is 3.4 Still has mild residual lower extremity edema, on 2 L of nasal cannula supplemental oxygen. 09/11 Patient seen and examined. Blood pressure 110/65, heart rate 80. Patient states that she is feeling much better. 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 She still has a little edema to the lower extremities but she states this is much better. Blood pressure 107/73, heart rate 79, pulse ox 90% on 12 L high flow nasal cannula. Repeat blood work reveals hemoglobin 16.4. Sodium 128, BUN 39 creatinine 0.76, CO2 38. Yesterday, IV Lasix was transitioned to oral by pulmonary medicine. Patient has a negative fluid balance with documented weight loss of 7 kg. 09/12 Patient states that she is a little bit better today. She states she does not have any chest pain or chest pressure or tightness. She has a little dizzy. Edema to the lower extremities is a little better from yesterday. She has been maintained on oral Lasix and yesterday we decreased the frequency of metolazone to once daily due to drop in sodium. Today sodium is 129, potassium 3.9, BUN 39 creatinine 0.83, hemoglobin 16.6.. Blood pressure 100/70, heart rate 90, pulse ox 88% on 12 L nasal cannula. 09/13 Patient seen and examined. No medication changes were made by us yesterday. Patient is on 12 L high flow nasal cannula with pulse ox of 89% and followed by pulmonary medicine. Blood pressure 113/76, heart rate in the 80s. Repeat blood work reveals WBC 10.8, hemoglobin 16.8, sodium 131, potassium 3.4, BUN 39 creatinine 0.81. Patient states that her breathing is okay. She slept okay last night. She denies chest pain. No cough no wheezing. She does have some nausea. She continues to have some lower extremity edema. 09/14 Patient seen and examined. Patient states that her breathing is okay. She denies chest pain. She slept okay last night. She continues to have a little lower extremity edema. Blood pressure 97/64, heart rate in the 80s and 90s, pulse ox 90% on 9 L high flow nasal cannula. Repeat blood work reveals WBC 15, hemoglobin 18, sodium 130, potassium 4, BUN 43 creatinine 0.84 and CO2 40. Patient has a negative fluid balance with documented weight loss. Telemetry sin us rhythm. No medication changes made today. 09/15 Patient seen and examined. She states that her breathing is about the same. She denies having any nausea at this time. She states she did not sleep well last night. She continues to have lower extremity edema. Patient has been continued on oral Lasix as well as metolazone and Aldactone. Blood pressure 113/72, heart rate in the 80s, pulse ox 92% on high flow nasal cannula at 10 L. Patient has a negative fluid balance with documented weight loss. Repeat blood work reveals sodium 128, potassium 3.4, chloride 77, CO2 45, BUN 40 creatinine 0.73. proBNP 18,000. CTA of the chest performed yesterday afternoon revealed no PE. Persistent but improved subcutaneous. Resolved small right pleural effusion. Persistent small to moderate left pleural effusion. Moderate to advanced emphysematous changes redemonstrated. No acute process. Cardiomegaly. Small to moderate. Size pericardial effusion. Evidence of underlying pulmonary artery hypertension and right-sided heart failure. 09/16/2024 Patient examined this morning at the bedside. Patient is sitting up in the chair. Patient denies chest pain or pressure. She reports mild shortness of breath. She reports improvement in her lower extremity swelling. Vital signs are stable. Blood pressure 96/60. She is on 12 L nasal cannula. Sodium 128. Potassium 2.8. CO2 45. BUN 41. Creatinine 0.72. 09/17/2024 Patient examined this morning. Patient is sitting up in the chair. Patient denies chest pain or pressure. She continues to report shortness of breath, unchanged from yesterday. She continues to have lower extremity edema. Patient remains on oral Lasix. Sodium 128. Potassium 2.9. 09/18/2024 Patient examined this morning at the bedside. Patient is sitting up in the chair. Sodium today 129. Potassium 3.8. Carbon dioxide 49. BUN 46. Creatinine 0.68. Patient's Zaroxolyn was discontinued yesterday. She remains on 10 L nasal cannula. 09/19/2024 Patient examined this morning at the bedside. Patient currently denies chest pain or pressure. Her shortness of breath remains unchanged. She is on 12 L nasal cannula. Blood pressure 90/57. 09/20/2024 Patient examined this morning at bedside. She is sitting up in the chair. Patient continues to report shortness of breath that is unchanged. Patient currently denies chest pain or pressure. Patient remains on oral Lasix 40 mg twice a day. Sodium today 129. Potassium 3.2. CO2 38. BUN 43. Creatinine 0.69. Chest x-ray obtained yesterday reveals COPD and cardiomegaly. Suspect mild pulmonary vascular congestion. Similar to slightly improved small left pleural effusion with adjacent atelectasis and/or consolidation. Chest ultrasound revealed small to moderate size left pleural effusion with underlying atelectatic lung. She remains on 12 L high flow nasal cannula. Blood pressure in the 80s. PHYSICAL EXAM: VITAL SIGNS: Reviewed. GENERAL: Well-developed in no acute distress. NECK: Supple. No JVD or thyromegaly LUNGS: Respirations even and unlabored. Lungs diminished bilaterally HEART: Regular rate and rhythm. S1 and S2 heard. Systolic murmur noted. EXTREMITIES: Normal range of motion. No clubbing or cyanosis. Peripheral pulses intact. 12+ bilateral lower extremity edema ASSESSMENT: Shortness of breath Acute on chronic hypoxic respiratory failure Acute on chronic heart failure with preserved EF Acute Cor pulmonale Moderate pericardial effusion Severe pulmonary hypertension Left pleural effusion, status post thoracentesis with removal 800 cc, 09/06/2024 Trace pneumothorax, post thoracentesis Hyponatremia Hypokalemia PLAN: Continue current cardiac medications including Revatio, aspirin, Farxiga, Lasix, Aldactone, and potassium supplementation Continue to monitor kidney function and electrolytes. Repeat in a.m. Daily weights, accurate intake and output, and monitoring of kidney function Recommend eventual evaluation with a pulmonary hypertension specialist at [facility] Further recommendations pending patient course Nurse practitioner note has been reviewed by physician. Signing provider agrees with the documented findings, assessment, and plan of care documented by [employer] as a scribe. Objective - Vital Signs Vital signs: Vital Signs Temp 97.9 F 09/20/24 08:22 Pulse 82 09/20/24 08:22 Resp 18 09/20/24 08:22 BP 102/66 09/20/24 08:22 Pulse Ox 95 09/20/24 08:22 FiO2 70 09/09/24 08:20 Intake & Output 09/19/24 09/20/24 09/20/24 18:59 06:59 18:59 Intake Total 977 20 Output Total 1450 1302 Balance -473 -1282 Weight 57.7 kg Intake: IV 20 20 Invasive Line 6 20 20 Oral 957 Output: Urine 1450 1300 Stool 2 Other: Voiding Method Bedside Commode Bedside Commode # Voids 2 # Bowel Movements 1 1 - Labs CBC & Chem 7: 09/20/24 05:15 09/20/24 05:15 Labs: Abnormal Lab Results - Last 24 Hours (Table) 09/19/24 09/19/24 09/19/24 Range/Units 11:36 12:45 16:22 WBC (4.50-10.00) 10*3/uL Immature Gran # (0.00-0.04) 10*3/uL Neutrophils # (1.80-7.70) 10*3/uL Lymphocytes # (0.90-5.00) 10*3/uL Eosinophils # (0.04-0.35) 10*3/uL Sodium (137-145) mmol/L Potassium (3.5-5.1) mmol/L Chloride (98-107) mmol/L Carbon Dioxide (22-30) mmol/L BUN (7-17) mg/dL POC Glucose (mg/dL) 122 H 168 H (70-110) mg/dL C-Reactive Protein 5.7 H (<1.0) mg/dL 09/19/24 09/20/24 09/20/24 Range/Units 20:28 05:15 05:15 WBC 19.03 H (4.50-10.00) 10*3/uL Immature Gran # 0.15 H (0.00-0.04) 10*3/uL Neutrophils # 17.41 H (1.80-7.70) 10*3/uL Lymphocytes # 0.59 L (0.90-5.00) 10*3/uL Eosinophils # 0.02 L (0.04-0.35) 10*3/uL Sodium 129 L (137-145) mmol/L Potassium 3.2 L (3.5-5.1) mmol/L Chloride 79 L (98-107) mmol/L Carbon Dioxide 38 H (22-30) mmol/L BUN 43 H (7-17) mg/dL POC Glucose (mg/dL) 149 H (70-110) mg/dL C-Reactive Protein (<1.0) mg/dL
--- NOTE | 2024-09-20 14:27 | P.PN ---
Subjective Progress Note Date: 09/20/24 Patient is admitted for multifactorial respiratory failure secondary to CHF COPD with acute exacerbation still having hypoxia patient is on 10 L of oxygen patient has diminished air entry into bilateral lung gupta patient has alpha-1 antitrypsin deficiency leading to severe emphysema usually uses oxygen but patient is on high amount of oxygen at this time patient also has chronic right- sided heart failure with severe pulmonary hypertension and cor pulmonale. Patient had a CT of the chest as we are unable to wean her off oxygen CT did not show any pulmonary embolism but did show some pericardial effusion. 09/15/2024 Patient is evaluated today in the follow up. Sitting up in the chair. Continues with significant peripheral edema and pitting up to the thighs. Continues on oral lasix BID. Urine out 2.2 L so far today. IV lasix x 1 dose given also. Patient continues on 10 L of oxygen via nasal cannula. Labs today reveal sodium 128, potassium 3.4, CO2 45, BNP 18,000. Dr Allan in to see patient today for routine care and trimming of the nails on bilateral feet. 09/16/2024 Patient is evaluated again sitting up in the chair. Patients peripheral edema slightly improved. Over 4L of urine output yesterday. Remains on oral lasix 40 mg BID. Oxygen was increased to 12L hi flow. Labs today reveal white blood cell count 15.33, hgb 16.5, sodium 128, BUN 41, creatinine 0.72. Chloride 74, CO2 45. 09/17/2024 Patient is evaluated today sitting up in the chair. Patient continues with peripheral edema. Remains on 10 L of oxygen via nasal cannula. Not having any significant complaints. On fluid restriction 1200 CC. Labs today reveal white blood cell count of 20.47, hgb 16.8, sodium 128, potassium 3.4, CO2 48, chloride 73,. 09/18/2024 Patient is evaluated in follow-up today by the chair family at the bedside. She continues with significant lower extremity peripheral edema. She remains on times of oxygen via nasal cannula. She continues on Lasix 40 mg oral twice daily. White blood cell count today is 19.14, sodium level 129. BUN 46 creatinine 0.68. Heart rate in the 100s. 09/19/2024 Patient is eval in follow-up on the medical floor. Repeat chest x-ray reveals COPD and cardiomegaly suggest mild pulmonary vascular congestion. Similar to slightly improved small pleural effusion with adjacent atelectasis and/or consolidation. Subsequently patient went for a chest ultrasound which reveals a small to moderate 6.6 cm left pleural effusion pocket size. Was marked for possible thoracentesis. White blood cell count elevated at 20.11. Sodium level of 128 potassium 3.4, BUN of 46 creatinine 0.68. His CRP level was elevated at 5.7. Her viral panel repeat was negative for influenza RSV and COVID. ID was consulted for further management of the leukocytosis. 09/20/2024 Patient is evaluated today in follow up. States she feels tired today and has been dozing off. Chest ultrasound reveals small to moderate left pleural effusion. Continues on oral lasix 40 mg twice daily. Patient is on 12L hi flow cannula. White blood cell count 19.03, hgb 14.3, sodium 129, potassium 3.2, BUN 43, creatinine 0.69. Procalcitonin level 0.17. Pulmonology at this time not planning on thoracentesis. Review of Systems Constitutional: Denied any fatigue denied any fever. Cardio vascular: denied any chest pain, palpitations Gastrointestinal: denied any nausea, vomiting, diarrhea Pulmonary: Denied any shortness of breath cough Neurologic denied any new focal deficits All inpatient medications were reviewed and appropriate changes in these medications as dictated in the interval history and assessment and plan. PHYSICAL EXAMINATION: GENERAL: The patient is alert and oriented x3, not in any acute distress. Thin built cachectic female HEENT: Pupils are round and equally reacting to light. EOMI. No scleral icterus. No conjunctival pallor. Normocephalic, atraumatic. No pharyngeal erythema. No thyromegaly. CARDIOVASCULAR: S1 and S2 present. No murmurs, rubs, or gallops. PULMONARY: Decreased air entry to bilateral lung gupta ABDOMEN: Soft, nontender, nondistended, normoactive bowel sounds. No palpable organomegaly. MUSCULOSKELETAL: No joint swelling or deformity. EXTREMITIES: No cyanosis, clubbing, +1 pitting lower extremity edema NEUROLOGICAL: Gross neurological examination did not reveal any focal deficits. SKIN: No rashes. Assessment and plan -Acute on chronic hypoxic and hypercapnic respiratory failure secondary to COPD exacerbation right-sided heart failure pulmonary hypertension -Small to moderate left-sided pleural effusion patient is s/p thoracentesis of the left on September 06. At that time 800 mL of fluid was removed. -Hyponatremia secondary to excessive diuresis - Acute cor pulmonale - Leukocytosis likely steroid-induced - Congestive heart failure with preserved ejection fraction or diastolic dysfunction - Severe pulmonary hypertension - Trace pneumothorax with status post thoracentesis - Mild to moderate pericardial effusion - Urinary retention patient has a Alba catheter in place DVT prophylaxis: Patient will be started on low-dose Lovenox Continue oral lasix 40 mg BID and strict intake and output monitoring. Steroids have been decreased to oral prednisone 40 mg daily. Wean oxygen as tolerated. Repeat CBC, BMP in the AM. Cardiology and pulmonology following. Infectious disease was consulted. Patient has been started on oral diflucan. Pulmonology with no plans for thoracentesis at this time. Patient continues on oxygen via nasal cannula at 12L and has not been able to wean further. Hospice vs. palliative may be appropriate at this time and will need to follow up with patient. She has been hospitalized 21 days. The impression and plan of care has been dictated by Neli Redding, Nurse Practitioner as directed. Dr. Abe MD I have performed a history and physical examination and medical decision making of this patient, discussed the same with the dictator, and agree with the dictators assessment and plan as written, documented as a scribe. Based on total visit time, I have performed more than 50% of this visit. Objective - Vital Signs Vital signs: Vital Signs Temp 97.7 F 09/20/24 11:19 Pulse 85 09/20/24 12:00 Resp 18 09/20/24 11:19 BP 88/58 09/20/24 12:00 Pulse Ox 95 09/20/24 11:19 FiO2 70 09/09/24 08:20 Intake & Output 09/19/24 09/20/24 09/20/24 18:59 06:59 18:59 Intake Total 977 20 20 Output Total 1450 1302 200 Balance -473 -1282 -180 Weight 57.7 kg Intake: IV 20 20 20 Invasive Line 6 20 20 20 Oral 957 Output: Urine 1450 1300 200 Stool 2 Other: Voiding Method Bedside Commode Bedside Commode Bedside Commode # Voids 2 1 # Bowel Movements 1 1 1 - Labs CBC & Chem 7: 09/20/24 05:15 09/20/24 05:15 Labs: Abnormal Lab Results - Last 24 Hours (Table) 09/19/24 09/19/24 09/20/24 Range/Units 16:22 20:28 05:15 WBC 19.03 H (4.50-10.00) 10*3/uL Immature Gran # 0.15 H (0.00-0.04) 10*3/uL Neutrophils # 17.41 H (1.80-7.70) 10*3/uL Lymphocytes # 0.59 L (0.90-5.00) 10*3/uL Eosinophils # 0.02 L (0.04-0.35) 10*3/uL Sodium (137-145) mmol/L Potassium (3.5-5.1) mmol/L Chloride (98-107) mmol/L Carbon Dioxide (22-30) mmol/L BUN (7-17) mg/dL POC Glucose (mg/dL) 168 H 149 H (70-110) mg/dL 09/20/24 09/20/24 Range/Units 05:15 11:30 WBC (4.50-10.00) 10*3/uL Immature Gran # (0.00-0.04) 10*3/uL Neutrophils # (1.80-7.70) 10*3/uL Lymphocytes # (0.90-5.00) 10*3/uL Eosinophils # (0.04-0.35) 10*3/uL Sodium 129 L (137-145) mmol/L Potassium 3.2 L (3.5-5.1) mmol/L Chloride 79 L (98-107) mmol/L Carbon Dioxide 38 H (22-30) mmol/L BUN 43 H (7-17) mg/dL POC Glucose (mg/dL) 156 H (70-110) mg/dL Assessment and Plan Time with Patient: Less than 30
[2024-09-20 16:40] LABS: Glucose,Whole Blood 134 mg/dL (70-110)
[2024-09-20 19:56] LABS: Glucose,Whole Blood 139 mg/dL (70-110)
[2024-09-21 06:08] LABS: Glucose,Whole Blood 95 mg/dL (70-110)
[2024-09-21 09:57] LABS: African American GFR (CKD) >90 (>60 ml/min/1.73 sqM); Anion Gap 4 mmol/L; Blood Urea Nitrogen 37 mg/dL (7-17); Calcium 9.6 mg/dL (8.4-10.2); Carbon Dioxide 39 mmol/L (22-30); Chloride 86 mmol/L (98-107); Glucose 110 mg/dL (74-99); Non-African American GFR(CKD) 81 (>60 ml/min/1.73 sqM); Potassium 4.1 mmol/L (3.5-5.1); Sodium 129 mmol/L (137-145)
--- NOTE | 2024-09-21 10:03 | P.PN ---
Subjective Progress Note Date: 09/21/24 Principal diagnosis: Congestive heart failure. This is an 78-year-old female patient with no prior cardiac history but medical history significant for chronic hypoxic respiratory failure secondary to COPD and alpha 1 antitrypsin deficiency presented to the hospital with progressive exertional dyspnea associated with progressive bilateral lower extremity edema for the last few days. No symptoms of chest pain or chest discomfort but she felt she was experiencing severe congestions with no fever and no chills and no cough and no sputum production. No other cardiovascular symptoms of dizziness or lightheadedness or any feeling of heart racing or fluttering or presyncope or syncope. She developed severe bilateral lower extremities edema. When she presented to the hospital she was hypoxic requiring high flow oxygen. Normally she is on 2 L of oxygen continuously. Definitely her oxygen requirement has increased within the last few days and she has been doing pulse oximetry at home and noticed that her oxygen saturation has been low. She underwent further evaluation including EKG showing RBBB. NT proBNP came to be elevated at 5000. First set of troponin is unremarkable with chest x-ray showed finding consistent with pulmonary vascular congestions and left pleural effusion but CT scan of the chest showed no evidence of PE. Venous duplex study showed no evidence of DVT as well. The physical examination is remarkable for regular rhythm with a systolic murmur at the right and left upper sternal border with diminished breathing sounds bilaterally and bilateral rhonchi and severe bilateral lower extremities pitting edema. I initially saw this patient in my office. She was hypoxic and she was in significant volume overload with extensive lower extremit y edema. I directed this patient to the Emergency Department. After being in the hospital for around 3 days, the patient remained hypoxic and the patient remains on Airvo at 45 L with an FiO2 of 65%. Based on that, a pulmonary consultation was requested. I reviewed the CT of the chest that was done on this patient. The patient has extensive emphysematous changes bilaterally and the patient also has a moderate-sized left-sided pleural effusion. No airspace disease. No consolidation. No pneumonias. There is also a new moderate to small size pericardial effusion. Echocardiogram was completed on 08/31/2024 and the patient was found to have a preserved LV function with an EF of around 65% and the patient also had severe RV dilatation, reduced RV global systolic function and severe pulmonary hypertension along with moderate pericardial effusion without signs of any tamponade. The patient had severe tricuspid regurgitation. Estimated right ventricular systolic pressure was 94. For now, the patient is on Lasix 40 mg IV every 12 hours. Monitoring her fluid balance has been essentially negative and the patient has been -2.2 L over the past 24 hours. Most recent electrolytes show a sodium level of 132, potassium of 3.6, BUN 31 with a creatinine 0.7. The white cell count is at 8.8 with a hemoglobin 17.3. She is currently on Lasix 40 mg IV every 12 hours. She is also on Ald actone 25 mg p.o. daily. She remains on IV heparin. The procalcitonin level was 0.08. Troponins were nonelevated. On 09/05/2024, the patient is being seen for a follow-up. The patient is calm and comfortable. The patient is currently on Airvo 45 L with an FiO2 of 65%. She remains on Bumex 1 mg p.o. twice daily and Aldactone 25 mg p.o. daily. She has been diuresing well over the past several days and the patient has been negative fluid balance of 1.1 L over the past 24 hours. No significant shortness of breath at rest. Continues to have significant amount of edema lower extremities bilaterally. The white cell count is at 8.4 with a hemoglobin 17.4 and a platelet count of 167. BUN is 30 with a creatinine of of 0.7. Sodium level is at 132 and a potassium level is at 3.5. Viral screen was negative. Chest x-ray from yesterday was consistent with COPD with chronic emphysematous changes and cardiomegaly and small left-sided pleural effusion. The patient also was noted to have a moderate-sized pericardial effusion without signs of tamponade. The patient was taken off the IV Lasix and the patient was started on Bumex in combination with Aldactone. 09/06/2024, the patient remains on Airvo 45 L with FiO2 of 50%. The fluid balance has been +125 cc over the past 24 hours. Based on that, making recommendations to start the patient on Lasix drip at 5 mg an hour. She continues to have significant amount of edema lower extremities bilaterally. Further workup was ordered by the medical group including a Doppler of lower extremity that showed no evidence of any DVT and CTA of the chest that showed no evidence of any pulmonary embolism. There was extensive bilateral severe emphysematous changes and a chronic left-sided pleural effusion. Based on that, I performed a bedside thoracentesis this patient and I drained approximately 800 cc of pleural fluid from the left lung. The patient tolerated the procedure well without any complications. The fluid will be sent for analysis. The white cell count is 8.4, hemoglobin is 17.4 and platelet count of 167. BUN is 30 with a creatinine of 0.7 and sodium is at 132 and a potassium level is at 3.5. 09/07/2024, the patient is being seen for a follow-up. The patient remains on Airvo at 45 L and FiO2 of 65%. Pulse ox is in the order of 92%. Remains dependent on high flow oxygen. She continues to diurese with Lasix drip at 5 mg an hour. She is postthoracentesis and a total of 800 cc of pleural fluid was aspirated from the left lung. The pleural fluid was a transudate. The chemistry that showed low LDH and low protein. The white cell count was also low with a lymphocytic predominance. The patient has no specific complaints. The white cell count is at 5.6, hemoglobin is 16.6 and a platelet count is at 153. Sodium is at 130, BUN 29 with a creatinine of 0.7. K level is at 3.4. Remains on DuoNeb updrafts. Will start IV Solu-Medrol. 09/08/2024, the patient is being seen for a follow-up. Remains on Airvo 40 L and FiO2 of 65%. Currently on Lasix drip at 5 mg an hour. Also on Zaroxolyn 5 mg p.o. twice a day.. She is also on a combination of bronchodilators and IV Solu- Medrol. Unfortunately, no significant improvement in oxygenation over the past 24 hours and will continue to monitor. The white cell count of 9.5, hemoglobin is at 15.6 and a platelet count of 156. Sodium levels at 129, potassium level 3.3. BUN is 34 with a creatinine of 0.7. Procalcitonin level is at 0.08. Cortisol level is at 32. Pleural fluid aspirated from the left lung was consistent with a transudate. On 09/09/2024, the patient was taken off the Airvo and the patient was placed on 12 L of oxygen by nasal cannula. Current pulse ox is around 88%. She is calm and comfortable. Denies having any new complaints. I am not sure if the patient is having accurate input output measurement. Nevertheless, based on the fluid balance, she is +500 cc over the past 24 hours. She is off the Lasix drip and the patient is currently receiving Lasix 40 mg IV every 12 hours. She is also on Zaroxolyn 5 mg p.o. twice a day. He is also on Aldactone 25 mg p.o. daily. Doing well. Afebrile. Hemodynamically stable. Blood work from today shows a white cell count of 10.3, hemoglobin of 15 and a platelet count of 176. BUN 36 with a creatinine of 0.7. Sodium level is at 128. No other significant events otherwise for now. 09/10/2024, the patient is doing well on 12 L of oxygen by nasal cannula. Pulse ox is ranging between 88 to 92%. No specific complaints. She still diuresing with a combination of Zaroxolyn and IV Lasix. There is some residual lower extremity edema. The white cell count of 8.7 with a hemoglobin of 6.4 and a platelet count of 161. Patient also has a stable level of 127, potassium level of 3.4,, chloride 86, BUN is 40 with a creatinine of 0.6. Patient was seen today on 09/11/2024, remains on the cardiac floor, remains on 12 L high flow nasal cannula, O2 saturation is 92%. Patient has been diuresing wit different diuretics including Zaroxolyn and Lasix, does not seem to be in distress Patient had thoracentesis done by Dr. San about 5 days ago, cytology was negative for malignancy, fluid was mostly transudative in nature. WBC is 9.3 hemoglobin 16.4 electrolytes are relatively normal except of sodium 128, BUN is 39 creatinine 0.76 hemodynamically the patient is stable, clinically she feels better, breathing easier, still being followed by many consultants including cardiology, patient is responding to diuretics but nonetheless she still requiring significant amount of FiO2. Patient was seen today on 09/12/2024, patient is feeling better today, less shortness of breath, no chest pain, no chest pressure, no tightness, patient remains on diuretics, she is on oral Lasix, cardiology is handling diuretics patient had a follow-up chest x-ray with small recurrent left pleural effusion noted, some atelectasis, patient is still requiring relatively high FiO2, on 12 L nasal cannula. No plans to perform thoracentesis on this patient since the size of the fluid is #1 way too small, and patient had previous thoracentesis the fluid was transudative in nature. CT angiogram of the chest on admission showed no evidence of pulmonary embolism on this patient. Seen today on09/13/24, patient is clinically feeling better, however she remains on high FiO2 at 12 L, O2 sat show is marginal. Chest x-ray showed small left pleural effusion, previous CT angiogram of the chest to rule out pulmonary embolism patient remains on diuretics, she does have pulmonary hypertension, overall not much of a change in the last few days. Basically about the same. However she could not be discharged home on 12 L nasal cannula and we are continuing diuretics. Also on bronchodilators Patient was seen today , clinically improving but her FiO2 requirement remains high on 12 L high flow nasal cannula titrated down to 9 L and maintain her O2 saturation in the low 90s. Patient has very minimal small left pleural effusion to explain her profound hypoxia, hence today I recommended a CT angiogram on this patient. And this is pending. My index of suspicion for pulmonary embolism is rather low but considering her ongoing hypoxia it is best to be safe and address that accordingly. She did have CT angiogram on her initial presentation and that was negative for PE. WBC count 15.17 hemoglobin is 18.2 electrolytes are normal renal profile is relatively normal bicarb is 40. Patient was seen today on 09/15/2024, patient remains about the same, clinically better but still requiring high O2 flow, she is now on 10 L high flow nasal cannula, CT angiogram of the chest showed no evidence of pulmonary embolism, the effusion is very small, and clearly not contributing to her hypoxia much. Patient remains on diuretics, remains on bronchodilators, clinically better but still requiring high FiO2. Labs today were reviewed bicarb is 45 renal profile is normal sodium is 128 Seen today on 09/16/2024, basically about the same, remains on high flow nasal cannula at 12 L today, O2 sats is marginal, patient does not seem to be showing any significant improvement whatsoever. Clinically she seems to be comfortable, and not in distress. WBC is 15.3 hemoglobin 16.5 electrolytes are abnormal with low sodium low potassium low chloride elevated bicarb, BUN is 41 creatinine 0.72, electrolytes are being addressed by admitting physician. Seen today on 09/17/2024, she is now on 10 L high flow nasal cannula, remains marginal at best, patient is not symptomatic, but she desaturates easily down to the 80s when her FiO2 is below 10 L. Patient is comfortable, remains on diuretics, remains on bronchodilators, remains on steroids, not much of a change has been noticed over the last 1 week. WBC count is 20.47 hemoglobin 16.8 sodium is low at 128 potassium 2.9 bicarb is 48. Is 44 creatinine 0.75 Progress note dated September 18, 2024. This is an 78-year-old female seen today in room 351. The patient was admitted with a diagnosis of CHF. Currently she remains on 10 L high flow O2. Saturations are 90 to 91%. The patient is not receiving any IV fluids. Current laboratory data includes a white count of 19.1, hemoglobin 15.7, hematocrit 45.3, and a platelet count of 231,000. Sodium 129, potassium 3.8, chlorides 76, and CO2 49, BUN 46, and creatinine 0.68. Glucose 173. Calcium 9.6 with a magnesium of 1.8. CTA done on September 14 shows no evidence of pulmonary embolism, but improved subcutaneous edema. There is a small right pleural effusion, and a small to moderate size left pleural effusion. Progress note dated September 19, 2024. 78-year-old female seen again in room 351. She continues on high flow nasal O2 at 11 L/min. She is not receiving any IV fluids. Today we increased her Pulmicort up to 1 mg, twice a day, we also DC albuterol, and add DuoNebs, 4 times daily and as needed. Will check a chest x-ray, and will do an ultrasound of the left chest, to see if the effusion, is large enough to do thoracentesis. Current laboratory data includes a white count of 20.1, hemoglobin 15.3, hematocrit 43.0, and a platelet count of 209,000. Sodium 128, potassium 3.4, chloride 79, CO2 41, BUN 46, and creatinine 0.68. Glucose is 122. Calcium is 9.4. Progress note dated September 20, 2024. 78-year-old female seen again in room 351. The patient continues on high flow oxygen, at 11 L/min. The ultrasound of the chest showed a relatively small effusion, and there was lung tissue, within the effusion. We had ordered an echocardiogram, with bubble study, to rule out a shunt, but apparently cardiology and the magnetic testing technician, thought that shunt was unlikely, given the patient's high right-sided pressures. White count is 19, hemoglobin 14.3, hematocrit 40.9, and platelet count was 224,000. Sodium 129, potassium 3.2, chlorides 79, CO2 38, anion gap 12, BUN 43, creatinine 0.69. Close was 156. Calcium 9.3. Chest x-ray suggest COPD, cardiomegaly, and mild pulmonary vascular congestion. There is a small left pleural effusion. Progress note dated September 21, 2024. 78-year-old female seen again in room 351. The patient continues on high flow nasal cannula 12 L. Her saturations are 95%. She has no specific complaints. She has not been improving at all, and hospice should be considered for this patient. Will leave that up to the primary service. Current laboratory data includes a sodium 129, potassium 4.1, chloride 86, CO2 39, BUN 37, and creatinine 0.71. Glucose is 110. Calcium was 9.6. Objective - Vital Signs Vital signs: Vital Signs Temp 97.9 F 09/21/24 07:57 Pulse 95 09/21/24 08:10 Resp 20 09/21/24 07:57 BP 107/73 09/21/24 07:57 Pulse Ox 95 09/21/24 07:57 FiO2 70 09/09/24 08:20 Intake & Output 09/20/24 09/21/24 09/21/24 18:59 06:59 18:59 Intake Total 260 20 110 Output Total 200 651 450 Balance 60 -631 -340 Weight 56.9 kg Intake: IV 20 20 10 Invasive Line 6 20 20 10 Oral 240 100 Output: Urine 200 650 450 Stool 1 Other: Voiding Method Bedside Commode Bedside Commode Bedside Commode # Voids 1 2 1 # Bowel Movements 1 1 - Exam No acute distress, oriented 3. Currently on 12 L high flow oxygen. HEENT examination is grossly unremarkable. Mucous membranes are moist. No oral lesions. Neck supple. Full range of motion. No adenopathy thyromegaly or neck vein distention. Cardiovascular examination reveals regular rhythm rate. S1-S2 normal. No S3 or S4. A soft systolic murmur is noted. Lungs reveal basilar crackles, and mild rhonchi. Breath sounds are diminished at the left lung base. Abdomen soft bowel sounds are heard. No masses or tenderness. Extremities are intact. No cyanosis or clubbing. Trace edema noted. Skin is without rash or lesion. Neurologic examination is brief but nonfocal. - Labs CBC & Chem 7: 09/20/24 05:15 09/21/24 09:22 Labs: Abnormal Lab Results - Last 24 Hours (Table) 09/20/24 09/20/24 09/20/24 Range/Units 11:30 16:38 19:54 Sodium (137-145) mmol/L Chloride (98-107) mmol/L Carbon Dioxide (22-30) mmol/L BUN (7-17) mg/dL Glucose (74-99) mg/dL POC Glucose (mg/dL) 156 H 134 H 139 H (70-110) mg/dL 09/21/24 Range/Units 09:22 Sodium 129 L (137-145) mmol/L Chloride 86 L (98-107) mmol/L Carbon Dioxide 39 H (22-30) mmol/L BUN 37 H (7-17) mg/dL Glucose 110 H (74-99) mg/dL POC Glucose (mg/dL) (70-110) mg/dL Microbiology - Last 24 Hours (Table) 09/19/24 12:45 Blood Culture - Preliminary Blood Assessment and Plan Assessment: Acute on chronic hypoxemic respiratory failure. Acute on chronic heart failure, with preserved ejection fraction. Chronic right-sided heart failure with severe pulmonary hypertension, and cor pulmonale. Moderate pericardial effusion. Severe pulmonary hypertension. Left pleural effusion,S/P thoracentesis, September 06, 2024. Fluid analysis suggested transudate. Trace pneumothorax, S/P thoracentesis. History of panic attacks and generalized anxiety disorder. History of gout. Urinary retention. Hyponatremia. Plan: Plan dated September 18, 2024. The patient continues on oxygen. We will attempt to titrate the FiO2 down. Labs, x-rays, and medications are reviewed. We will continue to follow make recommendations. The patient continues on diuretics and corticosteroids, as well as bronchodilators. Prognosis is guarded. Labs, x-rays, and medications are reviewed. Dictation was produced using [employer] software. Please excuse any grammatical, word or spelling errors. Plan dated September 19, 2024. The patient is now receiving nasal O2, high-frequency, at 11 L/min. In addition, we DC the albuterol, in favor of DuoNebs, 4 times daily and as needed. Will recheck a chest x-ray, and do an ultrasound of left chest, with markings. We also increase Pulmicort to 1 mg. All labs, x-rays, and medications are reviewed. We will continue to follow make recommendations. Hoping to improve the patient's oxygenation, so that she can be discharged. She does have some mild 1+ lower extremity edema. Dictation was produced using [employer] software. Please excuse any grammatical, word or spelling errors. Plan dated September 20, 2024. The patient is still on high flow O2 at 11 L. The patient's chest x-ray suggest some cardiomegaly, a small left-sided pleural effusion, and mild CHF. Ultrasound, showed a small left-sided pleural effusion, with lung tissue intermixed. Previous thoracentesis did result in a small pneumothorax. The fluid was transudative. Labs, x-rays, medications are reviewed. We will continue to follow. Prognosis is guarded. The patient is a DO NOT RESUSCITATE patient. She may have to consider something like palliative care, or hospice, if we cannot titrate down her oxygen requirements. Dictation was produced using [employer] software. Please excuse any grammatical, word or spelling errors. Plan dated September 21, 2024. The patient continues on high flow nasal O2 at 12 L. The patient's chest x-ray suggested some cardiomegaly, and a small left-sided pleural effusion. In additi on, there was a suggestion of mild CHF. Ultrasound showed a small left-sided pleural effusion, with lung tissue intermixed. Previous thoracentesis did result in a small pneumothorax, and the fluid that was removed, was transudative. Labs, x-rays, medications are reviewed. The patient has made no significant progress. Palliative care consult or hospice consult should be considered. We will continue to follow. All labs, x-rays, and medications are reviewed. Dictation was produced using Dragon dictation software. Please excuse any grammatical, word or spelling errors. Time with Patient: Less than 30
[2024-09-21 11:31] LABS: Glucose,Whole Blood 120 mg/dL (70-110)
--- NOTE | 2024-09-21 13:07 | P.PN ---
Subjective HISTORY OF PRESENT ILLNESS: This is an 78-year-old female patient with no prior cardiac history but medical history significant for chronic hypoxic respiratory failure secondary to COPD and alpha 1 antitrypsin deficiency presented to the hospital with progressive exertional dyspnea associated with progressive bilateral lower extremity edema for the last few days. No symptoms of chest pain or chest discomfort but she felt she was experiencing severe congestions with no fever and no chills and no cough and no sputum production. No other cardiovascular symptoms of dizziness or lightheadedness or any feeling of heart racing or fluttering or presyncope or syncope. She developed severe bilateral lower extremities edema. When she presented to the hospital she was hypoxic requiring high flow oxygen. Normally she is on 2 L of oxygen continuously. Definitely her oxygen requirement has increased within the last few days and she has been doing pulse oximetry at home and noticed that her oxygen saturation has been low. She underwent further evaluation including EKG showing RBBB. NT proBNP came to be elevated at 5000. First set of troponin is unremarkable with chest x-ray showed finding consistent with pulmonary vascular congestions and left pleural effusion but CT scan of the chest showed no evidence of PE. Venous duplex study showed no evidence of DVT as well. The physical examination is remarkable for regular rhythm with a systolic murmur at the right and left upper sternal border with diminished breathing sounds bilaterally and bilateral rhonchi and severe bilateral lower extremities pitting edema September 01, 2024 The patient was seen and evaluated this morning. She is overall feeling better. She still have bilateral lower extremities edema. The pressure remains marginal but appears to be better today which she was started on midodrine yesterday. Am going to stop the midodrine and decrease the dose of Lasix from 40 mg IV twice daily to 20 mg IV twice daily giving the marginally low blood pressure and also giving the finding on the echo including severe pulmonary hypertension and moderate pericardial effusion without tamponade physiology. The physical examination is remarkable for bilateral lower extremities edema. The troponin came to be mildly abnormal and I would consider medical treatment in the absence of any chest pain. September 02, 2024 The patient was seen and evaluated this morning. She is still hypoxic requiring high flow oxygen she still have severe bilateral lower extremities edema. Her pressure is better and with that I am going to increase the dose of Lasix to 40 mg IV twice daily which she is hypokalemic and the potassium is in process to be replaced. The physical examination is remarkable for diminished breathing sounds bilaterally and severe bilateral lower extremities edema. September 03, 2024 The patient was seen and evaluated this morning. The bilateral lower extremitie s edema has somewhat improved but continues to be there. She is on Lasix IV. I would suggest continue the current dose of Lasix IV and will follow-up with the blood work from the morning which is still pending. Otherwise she remains hemodynamically stable. No symptoms of chest pain or chest discomfort. The physical examination is remarkable for moderate bilateral lower extremities pitting edema with diminished breathing sounds bilaterally. Definitely the edema has improved after we increase the dose of Lasix yesterday. 09/04/2024 Patient is seen and examined at bedside this a.m. She is sitting in the chair with a high flow nasal cannula oxygen. 2+ pitting edema bilateral lower extrem ity, mild crackles in lung gupta, minimal wheezing. Alert oriented, reports that symptomatically she feels better since the time for admission. Blood pressure is borderline low with SBP around 90s to 100 mmHg. 09/05/2024 Patient is seen and examined at bedside this a.m. She continues to be on high flow nasal cannula 1-2+ pitting edema bilateral extremity with mild crackles in lung gupta with minimal wheezing Alert oriented Reports symptomatically feeling better. Blood pressure and heart rates are within acceptable ranges kidney function and electrolytes are within acceptable ranges. 09/06/2024 Patient examined this morning at the bedside. She remains on Airvo. She continues to report shortness of breath. She is currently on oral Bumex. She also is complaining of her left knee hurting. Repeat limited echo reveals severe right ventricular and right atrial enlargement, dilated IVC, moderate pericardial effusion mostly anterior. Venous Doppler completed negative for DVT. Patient underwent chest CTA which was negative for pulmonary embolism. Evidence of right heart strain, pulmonary hypertension with bilateral pleural effusions, pulmonary vascular congestion, and cardiomegaly. Moderate to severe emphysema. 09/07/2024 Patient examined this morning at the bedside. She is sitting up in the chair. She continues to report shortness of breath. She denies any chest pain or pressure. She underwent left-sided thoracentesis yesterday with removal of 800 cc. Postprocedure chest x-ray revealed trace pneumothorax. Blood pressure is low in the 90s. 09/08/2024 Patient examined this morning at the bedside. Patient currently denies chest pain or pressure. She reports mild shortness of breath. She remains on IV Lasix per pulmonary medicine. Sodium today 129. Potassium 3.3. BUN 34. Creatinine 0.75. 09/09/2024 Changed from high flow nasal cannula to 12 L nasal cannula supplemental oxygen Blood pressure is borderline low Kidney function is stable with borderline low sodium and potassium Appropriate urine output Negative fluid balance of 1100 cc today last 24 hours 09/10/2024 Patient seen and examined at bedside this a.m., kidney function is stable, potassium is 3.4 Still has mild residual lower extremity edema, on 2 L of nasal cannula supplemental oxygen. 09/11 Patient seen and examined. Blood pressure 110/65, heart rate 80. Patient states that she is feeling much better. She denies having a prospecting driller prior to this admission. She still has a little edema to the lower extremities but she states this is much better. Blood pressure 107/73, heart rate 79, pulse ox 90% on 12 L high flow nasal cannula. Repeat blood work reveals hemoglobin 16.4. Sodium 128, BUN 39 creatinine 0.76, CO2 38. Yesterday, IV Lasix was transitioned to oral by pulmonary medicine. Patient has a negative fluid balance with documented weight loss of 7 kg. 09/12 Patient states that she is a little bit better today. She states she does not have any chest pain or chest pressure or tightness. She has a little dizzy. Edema to the lower extremities is a little better from yesterday. She has been maintained on oral Lasix and yesterday we decreased the frequency of metolazone to once daily due to drop in sodium. Today sodium is 129, potassium 3.9, BUN 39 creatinine 0.83, hemoglobin 16.6.. Blood pressure 100/70, heart rate 90, pulse ox 88% on 12 L nasal cannula. 09/13 Patient seen and examined. No medication changes were made by us yesterday. Patient is on 12 L high flow nasal cannula with pulse ox of 89% and followed by pulmonary medicine. Blood pressure 113/76, heart rate in the 80s. Repeat blood work reveals WBC 10.8, hemoglobin 16.8, sodium 131, potassium 3.4, BUN 39 creatinine 0.81. Patient states that her breathing is okay. She slept okay last night. She denies chest pain. No cough no wheezing. She does have some nausea. She continues to have some lower extremity edema. 09/14 Patient seen and examined. Patient states that her breathing is okay. She denies chest pain. She slept okay last night. She continues to have a little lower extremity edema. Blood pressure 97/64, heart rate in the 80s and 90s, pulse ox 90% on 9 L high flow nasal cannula. Repeat blood work reveals WBC 15, hemoglobin 18, sodium 130, potassium 4, BUN 43 creatinine 0.84 and CO2 40. Patient has a negative fluid balance with documented weight loss. Telemetry sin us rhythm. No medication changes made today. 09/15 Patient seen and examined. She states that her breathing is about the same. She denies having any nausea at this time. She states she did not sleep well last night. She continues to have lower extremity edema. Patient has been continued on oral Lasix as well as metolazone and Aldactone. Blood pressure 113/72, heart rate in the 80s, pulse ox 92% on high flow nasal cannula at 10 L. Patient has a negative fluid balance with documented weight loss. Repeat blood work reveals sodium 128, potassium 3.4, chloride 77, CO2 45, BUN 40 creatinine 0.73. proBNP 18,000. CTA of the chest performed yesterday afternoon revealed no PE. Persistent but improved subcutaneous. Resolved small right pleural effusion. Persistent small to moderate left pleural effusion. Moderate to advanced emphysematous changes redemonstrated. No acute process. Cardiomegaly. Small to moderate. Size pericardial effusion. Evidence of underlying pulmonary artery hypertension and right-sided heart failure. 09/16/2024 Patient examined this morning at the bedside. Patient is sitting up in the chair. Patient denies chest pain or pressure. She reports mild shortness of breath. She reports improvement in her lower extremity swelling. Vital signs are stable. Blood pressure 96/60. She is on 12 L nasal cannula. Sodium 128. Potassium 2.8. CO2 45. BUN 41. Creatinine 0.72. 09/17/2024 Patient examined this morning. Patient is sitting up in the chair. Patient denies chest pain or pressure. She continues to report shortness of breath, unchanged from yesterday. She continues to have lower extremity edema. Patient remains on oral Lasix. Sodium 128. Potassium 2.9. 09/18/2024 Patient examined this morning at the bedside. Patient is sitting up in the chair. Sodium today 129. Potassium 3.8. Carbon dioxide 49. BUN 46. Creatinine 0.68. Patient's Zaroxolyn was discontinued yesterday. She remains on 10 L nasal cannula. 09/19/2024 Patient examined this morning at the bedside. Patient currently denies chest pain or pressure. Her shortness of breath remains unchanged. She is on 12 L nasal cannula. Blood pressure 90/57. 09/20/2024 Patient examined this morning at bedside. She is sitting up in the chair. Patient continues to report shortness of breath that is unchanged. Patient currently denies chest pain or pressure. Patient remains on oral Lasix 40 mg twice a day. Sodium today 129. Potassium 3.2. CO2 38. BUN 43. Creatinine 0.69. Chest x-ray obtained yesterday reveals COPD and cardiomegaly. Suspect mild pulmonary vascular congestion. Similar to slightly improved small left pleural effusion with adjacent atelectasis and/or consolidation. Chest ultrasound revealed small to moderate size left pleural effusion with underlying atelectatic lung. She remains on 12 L high flow nasal cannula. Blood pressure in the 80s. 09/21/2024 Patient examined this morning at the bedside. Patient continues to report shortness of breath. She is on 12 L high flow nasal cannula. She denies chest pain or pressure. Blood pressure 107/73. She remains on oral diuretics. PHYSICAL EXAM: VITAL SIGNS: Reviewed. GENERAL: Well-developed in no acute distress. NECK: Supple. No JVD or thyromegaly LUNGS: Respirations even and unlabored. Lungs diminished bilaterally HEART: Regular rate and rhythm. S1 and S2 heard. Systolic murmur noted. EXTREMITIES: Normal range of motion. No clubbing or cyanosis. Peripheral pulses intact. 12+ bilateral lower extremity edema ASSESSMENT: Shortness of breath Acute on chronic hypoxic respiratory failure Acute on chronic heart failure with preserved EF Acute Cor pulmonale Moderate pericardial effusion Severe pulmonary hypertension Left pleural effusion, status post thoracentesis with removal 800 cc, 09/06/2024 Trace pneumothorax, post thoracentesis Hyponatremia Hypokalemia PLAN: Continue current cardiac medications including Revatio, aspirin, Farxiga, Lasix, Aldactone, and potassium supplementation Continue to monitor kidney function and electrolytes. Repeat in a.m. Daily weights, accurate intake and output, and monitoring of kidney function Recommend eventual evaluation with a pulmonary hypertension specialist at tertiary care center No further inpatient recommendations from a cardiac standpoint We will sign off. Please reconsult if needed. Nurse practitioner note has been reviewed by physician. Signing provider agrees with the documented findings, assessment, and plan of care documented by NUCLEAR LOGGING ENGINEER as a scribe. Objective - Vital Signs Vital signs: Vital Signs Temp 97.9 F 09/21/24 07:57 Pulse 95 09/21/24 08:10 Resp 20 09/21/24 07:57 BP 107/73 09/21/24 07:57 Pulse Ox 95 09/21/24 07:57 FiO2 70 09/09/24 08:20 Intake & Output 09/20/24 09/21/24 09/21/24 18:59 06:59 18:59 Intake Total 260 20 100 Output Total 200 651 200 Balance 60 -631 -100 Weight 56.9 kg Intake: IV 20 20 Invasive Line 6 20 20 Oral 240 100 Output: Urine 200 650 200 Stool 1 Other: Voiding Method Bedside Commode Bedside Commode # Voids 1 2 # Bowel Movements 1 1 - Labs CBC & Chem 7: 09/20/24 05:15 09/21/24 09:22 Labs: Abnormal Lab Results - Last 24 Hours (Table) 09/20/24 09/20/24 09/20/24 Range/Units 11:30 16:38 19:54 POC Glucose (mg/dL) 156 H 134 H 139 H (70-110) mg/dL Microbiology - Last 24 Hours (Table) 09/19/24 12:45 Blood Culture - Preliminary Blood
--- NOTE | 2024-09-21 16:07 | P.PN ---
Subjective Progress Note Date: 09/21/24 Principal diagnosis: Reason for follow-up is leukocytosis Patient is a 78-year-old female with a past medical history significant for COPD heart failure gout anxiety panic disorder hypertension presenting to the hospital about 3 weeks before initial evaluation for eval uation of difficulty in breathing she did have elevated white count probably this consultation On today's visit that is 09/21/2024,the patient remains to be afebrile, patient is on 12 L high flow nasal cannula supplemental oxygen and denies any worsening shortness of breath no chest pain or cough.Patient denies having any nausea or vomiting, no abdominal pain and no diarrhea has been reported. Patient did have a creatinine 0.71 no CBC was done today Objective - Vital Signs Vital signs: Vital Signs Temp 97.8 F 09/21/24 11:44 Pulse 83 09/21/24 11:44 Resp 20 09/21/24 11:44 BP 91/61 09/21/24 11:44 Pulse Ox 91 L 09/21/24 11:44 FiO2 70 09/09/24 08:20 Intake & Output 09/20/24 09/21/24 09/21/24 18:59 06:59 18:59 Intake Total 260 20 110 Output Total 200 651 450 Balance 60 -631 -340 Weight 56.9 kg Intake: IV 20 20 10 Invasive Line 6 20 20 10 Oral 240 100 Output: Urine 200 650 450 Stool 1 Other: Voiding Method Bedside Commode Bedside Commode Bedside Commode # Voids 1 2 1 # Bowel Movements 1 1 - Exam GENERAL DESCRIPTION: An elderly female up in chair in no distress RESPIRATORY SYSTEM: Unlabored breathing , decreased breath sounds at bases HEART: S1 S2 regular rate and rhythm , ABDOMEN: Soft , no tenderness EXTREMITIES: No edema feet - Labs CBC & Chem 7: 09/20/24 05:15 09/21/24 09:22 Labs: Abnormal Lab Results - Last 24 Hours (Table) 09/20/24 09/20/24 09/21/24 Range/Units 16:38 19:54 09:22 Sodium 129 L (137-145) mmol/L Chloride 86 L (98-107) mmol/L Carbon Dioxide 39 H (22-30) mmol/L BUN 37 H (7-17) mg/dL Glucose 110 H (74-99) mg/dL POC Glucose (mg/dL) 134 H 139 H (70-110) mg/dL 09/21/24 Range/Units 11:29 Sodium (137-145) mmol/L Chloride (98-107) mmol/L Carbon Dioxide (22-30) mmol/L BUN (7-17) mg/dL Glucose (74-99) mg/dL POC Glucose (mg/dL) 120 H (70-110) mg/dL Microbiology - Last 24 Hours (Table) 09/19/24 12:45 Blood Culture - Preliminary Blood Assessment and Plan (1) Leukocytosis Current Visit: Yes Status: Acute Code(s): D72.829 - ELEVATED WHITE BLOOD CELL COUNT, UNSPECIFIED SNOMED Code(s): 990621048 (2) Penicillin allergy Current Visit: Yes Status: Acute Code(s): Z88.0 - ALLERGY STATUS TO PENICILLIN SNOMED Code(s): 46680444 Plan: 1patient with elevated white count over the last 1 week and this patient has been in the hospital for almost 3 weeks before this initial consultation and has been treated for CHF exacerbation did require thoracocentesis on 09/06/2024 and those culture have been negative patient did not have any fever during this hospital stay does not look toxic has been exposed to steroids questionable steroid effect versus oropharyngeal candidiasis 2-cultures are currently pending 3. Patient white count slightly down as of yesterday no CBC was done today we will repeat his CBC with a.m. lab and continue Diflucan Dictation was produced using [employer] dictation software. please excuse any grammatical, word or spelling errors. Time with Patient: Less than 30
--- NOTE | 2024-09-21 16:07 | P.PN ---
Subjective Progress Note Date: 09/20/24 Principal diagnosis: Reason for follow-up is leukocytosis Patient is a 78-year-old female with a past medical history significant for COPD heart failure gout anxiety panic disorder hypertension presenting to the hospital about 3 weeks before initial evaluation for eval uation of difficulty in breathing she did have elevated white count probably this consultation On today's visit that is 09/20/2024,the patient denies any fever or any chills, patient is breathing slightly comfortably however still requiring 12 L high flow nasal cannula oxygen the patient denies chest pain shortness of breath and no significant cough, patient denies abdominal pain, no nausea vomiting or diarrhea. Patient white count is down to 19.03, creatinine 0.69 Objective - Vital Signs Vital signs: Vital Signs Temp 97.7 F 09/20/24 11:19 Pulse 85 09/20/24 11:19 Resp 18 09/20/24 11:19 BP 80/53 09/20/24 11:19 Pulse Ox 95 09/20/24 11:19 FiO2 70 09/09/24 08:20 Intake & Output 09/19/24 09/20/24 09/20/24 18:59 06:59 18:59 Intake Total 977 20 10 Output Total 1450 1302 200 Balance -473 -1282 -190 Weight 57.7 kg Intake: IV 20 20 10 Invasive Line 6 20 20 10 Oral 957 Output: Urine 1450 1300 200 Stool 2 Other: Voiding Method Bedside Commode Bedside Commode Bedside Commode # Voids 2 1 # Bowel Movements 1 1 1 - Exam GENERAL DESCRIPTION: An elderly female up in chair in no distress RESPIRATORY SYSTEM: Unlabored breathing , decreased breath sounds at bases HEART: S1 S2 regular rate and rhythm , ABDOMEN: Soft , no tenderness EXTREMITIES: No edema feet - Labs CBC & Chem 7: 09/20/24 05:15 09/21/24 09:22 Labs: Abnormal Lab Results - Last 24 Hours (Table) 09/19/24 09/19/24 09/19/24 Range/Units 11:36 12:45 16:22 WBC (4.50-10.00) 10*3/uL Immature Gran # (0.00-0.04) 10*3/uL Neutrophils # (1.80-7.70) 10*3/uL Lymphocytes # (0.90-5.00) 10*3/uL Eosinophils # (0.04-0.35) 10*3/uL Sodium (137-145) mmol/L Potassium (3.5-5.1) mmol/L Chloride (98-107) mmol/L Carbon Dioxide (22-30) mmol/L BUN (7-17) mg/dL POC Glucose (mg/dL) 122 H 168 H (70-110) mg/dL C-Reactive Protein 5.7 H (<1.0) mg/dL 09/19/24 09/20/24 09/20/24 Range/Units 20:28 05:15 05:15 WBC 19.03 H (4.50-10.00) 10*3/uL Immature Gran # 0.15 H (0.00-0.04) 10*3/uL Neutrophils # 17.41 H (1.80-7.70) 10*3/uL Lymphocytes # 0.59 L (0.90-5.00) 10*3/uL Eosinophils # 0.02 L (0.04-0.35) 10*3/uL Sodium 129 L (137-145) mmol/L Potassium 3.2 L (3.5-5.1) mmol/L Chloride 79 L (98-107) mmol/L Carbon Dioxide 38 H (22-30) mmol/L BUN 43 H (7-17) mg/dL POC Glucose (mg/dL) 149 H (70-110) mg/dL C-Reactive Protein (<1.0) mg/dL Assessment and Plan (1) Leukocytosis Current Visit: Yes Status: Acute Code(s): D72.829 - ELEVATED WHITE BLOOD CELL COUNT, UNSPECIFIED SNOMED Code(s): 892199722 (2) Penicillin allergy Current Visit: Yes Status: Acute Code(s): Z88.0 - ALLERGY STATUS TO PENICILLIN SNOMED Code(s): 38079876 Plan: 1patient with elevated white count over the last 1 week and this patient has been in the hospital for almost 3 weeks before this initial consultation and has been treated for CHF exacerbation did require thoracocentesis on 09/06/2024 and those culture have been negative patient did not have any fever during this hospital stay does not look toxic has been exposed to steroids questionable steroid effect versus oropharyngeal candidiasis 2-cultures are currently pending 3. Patient white count slightly down to 2 continue Diflucan and monitor clinical course closely Family at the bedside question concern answered Dictation was produced using [employer] dictation software. please excuse any grammatical, word or spelling errors. Time with Patient: Less than 30
[2024-09-21 16:24] LABS: Glucose,Whole Blood 170 mg/dL (70-110)
[2024-09-21 20:01] LABS: Glucose,Whole Blood 121 mg/dL (70-110)
--- NOTE | 2024-09-21 21:27 | P.PN ---
Subjective Progress Note Date: 09/21/24 Patient is admitted for multifactorial respiratory failure secondary to CHF COPD with acute exacerbation still having hypoxia patient is on 10 L of oxygen patient has diminished air entry into bilateral lung gupta patient has alpha-1 antitrypsin deficiency leading to severe emphysema usually uses oxygen but patient is on high amount of oxygen at this time patient also has chronic right- sided heart failure with severe pulmonary hypertension and cor pulmonale. Patient had a CT of the chest as we are unable to wean her off oxygen CT did not show any pulmonary embolism but did show some pericardial effusion. 09/15/2024 Patient is evaluated today in the follow up. Sitting up in the chair. Continues with significant peripheral edema and pitting up to the thighs. Continues on oral lasix BID. Urine out 2.2 L so far today. IV lasix x 1 dose given also. Patient continues on 10 L of oxygen via nasal cannula. Labs today reveal sodium 128, potassium 3.4, CO2 45, BNP 18,000. Dr Allan in to see patient today for routine care and trimming of the nails on bilateral feet. 09/16/2024 Patient is evaluated again sitting up in the chair. Patients peripheral edema slightly improved. Over 4L of urine output yesterday. Remains on oral lasix 40 mg BID. Oxygen was increased to 12L hi flow. Labs today reveal white blood cell count 15.33, hgb 16.5, sodium 128, BUN 41, creatinine 0.72. Chloride 74, CO2 45. 09/17/2024 Patient is evaluated today sitting up in the chair. Patient continues with peripheral edema. Remains on 10 L of oxygen via nasal cannula. Not having any significant complaints. On fluid restriction 1200 CC. Labs today reveal white blood cell count of 20.47, hgb 16.8, sodium 128, potassium 3.4, CO2 48, chloride 73,. 09/18/2024 Patient is evaluated in follow-up today by the chair family at the bedside. She continues with significant lower extremity peripheral edema. She remains on times of oxygen via nasal cannula. She continues on Lasix 40 mg oral twice daily. White blood cell count today is 19.14, sodium level 129. BUN 46 creatinine 0.68. Heart rate in the 100s. 09/19/2024 Patient is eval in follow-up on the medical floor. Repeat chest x-ray reveals COPD and cardiomegaly suggest mild pulmonary vascular congestion. Similar to slightly improved small pleural effusion with adjacent atelectasis and/or consolidation. Subsequently patient went for a chest ultrasound which reveals a small to moderate 6.6 cm left pleural effusion pocket size. Was marked for possible thoracentesis. White blood cell count elevated at 20.11. Sodium level of 128 potassium 3.4, BUN of 46 creatinine 0.68. His CRP level was elevated at 5.7. Her viral panel repeat was negative for influenza RSV and COVID. ID was consulted for further management of the leukocytosis. 09/20/2024 Patient is evaluated today in follow up. States she feels tired today and has been dozing off. Chest ultrasound reveals small to moderate left pleural effusion. Continues on oral lasix 40 mg twice daily. Patient is on 12L hi flow cannula. White blood cell count 19.03, hgb 14.3, sodium 129, potassium 3.2, BUN 43, creatinine 0.69. Procalcitonin level 0.17. Pulmonology at this time not planning on thoracentesis. 09/21/2024 Patient is evaluated today in follow up. Patient sitting up in the chair. Re ned on 12L of oxygen via nasal cannula. Breathing more labored today. Discussed hospice vs. palliative care. Patient is on oral diflucan. Followed closely by ID and pulmonology. Review of Systems Constitutional: Denied any fatigue denied any fever. Cardio vascular: denied any chest pain, palpitations Gastrointestinal: denied any nausea, vomiting, diarrhea Pulmonary: Denied any shortness of breath cough Neurologic denied any new focal deficits All inpatient medications were reviewed and appropriate changes in these medications as dictated in the interval history and assessment and plan. PHYSICAL EXAMINATION: GENERAL: The patient is alert and oriented x3, not in any acute distress. Thin built cachectic female HEENT: Pupils are round and equally reacting to light. EOMI. No scleral icterus. No conjunctival pallor. Normocephalic, atraumatic. No pharyngeal erythema. No thyromegaly. CARDIOVASCULAR: S1 and S2 present. No murmurs, rubs, or gallops. PULMONARY: Decreased air entry to bilateral lung gupta ABDOMEN: Soft, nontender, nondistended, normoactive bowel sounds. No palpable organomegaly. MUSCULOSKELETAL: No joint swelling or deformity. EXTREMITIES: No cyanosis, clubbing, +1 pitting lower extremity edema NEUROLOGICAL: Gross neurological examination did not reveal any focal deficits. SKIN: No rashes. Assessment and plan -Acute on chronic hypoxic and hypercapnic respiratory failure secondary to COPD exacerbation right-sided heart failure pulmonary hypertension -Small to moderate left-sided pleural effusion patient is s/p thoracentesis of the left on September 06. At that time 800 mL of fluid was removed. -Hyponatremia secondary to excessive diuresis - Acute cor pulmonale - Leukocytosis likely steroid-induced - Congestive heart failure with preserved ejection fraction or diastolic dysfunction - Severe pulmonary hypertension - Trace pneumothorax with status post thoracentesis - Mild to moderate pericardial effusion - Urinary retention patient has a Alba catheter in place DVT prophylaxis: Patient will be started on low-dose Lovenox Continue oral lasix 40 mg BID and strict intake and output monitoring. Steroids have been decreased to oral prednisone 40 mg daily. Wean oxygen as tolerated. Repeat CBC, BMP in the AM. Cardiology and pulmonology following. Infectious disease was consulted. Patient has been started on oral diflucan. Pulmonology with no plans for thoracentesis at this time. Patient continues on oxygen via nasal cannula at 12L and has not been able to wean further. Hospice vs. palliative may be appropriate at this time and will need to follow up with patient. She has been hospitalized 22 days. The impression and plan of care has been dictated by Neli Redding, Nurse Practitioner as directed. Dr. Abe MD I have performed a history and physical examination and medical decision making of this patient, discussed the same with the dictator, and agree with the dictators assessment and plan as written, documented as a scribe. Based on total visit time, I have performed more than 50% of this visit. Objective - Vital Signs Vital signs: Vital Signs Temp 97.9 F 09/21/24 20:00 Pulse 72 09/21/24 21:20 Resp 18 09/21/24 21:20 BP 107/72 09/21/24 20:00 Pulse Ox 93 L 09/21/24 20:00 FiO2 70 09/09/24 08:20 Intake & Output 09/21/24 09/21/24 09/22/24 06:59 18:59 06:59 Intake Total 20 930 Output Total 651 950 Balance -631 -20 Weight 56.9 kg Intake: IV 20 20 Invasive Line 6 20 20 Oral 910 Output: Urine 650 950 Stool 1 Other: Voiding Method Bedside Commode Bedside Commode Bedside Commode # Voids 2 1 # Bowel Movements 1 - Labs CBC & Chem 7: 09/20/24 05:15 09/21/24 09:22 Labs: Abnormal Lab Results - Last 24 Hours (Table) 09/21/24 09/21/24 09/21/24 Range/Units 09:22 11:29 16:23 Sodium 129 L (137-145) mmol/L Chloride 86 L (98-107) mmol/L Carbon Dioxide 39 H (22-30) mmol/L BUN 37 H (7-17) mg/dL Glucose 110 H (74-99) mg/dL POC Glucose (mg/dL) 120 H 170 H (70-110) mg/dL 09/21/24 Range/Units 19:59 Sodium (137-145) mmol/L Chloride (98-107) mmol/L Carbon Dioxide (22-30) mmol/L BUN (7-17) mg/dL Glucose (74-99) mg/dL POC Glucose (mg/dL) 121 H (70-110) mg/dL Microbiology - Last 24 Hours (Table) 09/19/24 12:45 Blood Culture - Preliminary Blood Assessment and Plan Time with Patient: Less than 30
[2024-09-22 06:07] LABS: Glucose,Whole Blood 99 mg/dL (70-110)
[2024-09-22 06:34] LABS: Basophils # (A) 0.02 10*3/uL (0.00-0.10); Basophils % (A) 0.1 %; Eosinophils # (A) 0.02 10*3/uL (0.04-0.35); Eosinophils % (A) 0.1 %; HCT 41.7 % (37.2-46.3); HGB 14.2 g/dL (12.0-15.0); Lymphocytes # (A) 0.41 10*3/uL (0.90-5.00); Lymphocytes % (A) 2.4 %; MCH 30.8 pg (27.0-32.0); MCHC 34.1 g/dL (32.0-37.0); MCV 90.5 fL (80.0-97.0); Mean Platelet Volume 10.6 fL (9.5-12.2); Monocytes # (A) 0.69 10*3/uL (0.20-1.00); Monocytes % (A) 4.1 %; Neutrophils # (A) 15.59 10*3/uL (1.80-7.70); Neutrophils % (A) 92.5 %; Platelet Count 212 10*3/uL (140-440); RBC 4.61 10*6/uL (4.10-5.20); RDW 16.2 % (11.5-14.5); WBC 16.87 10*3/uL (4.50-10.00)
[2024-09-22 06:52] LABS: African American GFR (CKD) >90 (>60 ml/min/1.73 sqM); Anion Gap 4 mmol/L; Blood Urea Nitrogen 36 mg/dL (7-17); Calcium 9.2 mg/dL (8.4-10.2); Carbon Dioxide 39 mmol/L (22-30); Chloride 86 mmol/L (98-107); Glucose 95 mg/dL (74-99); Non-African American GFR(CKD) 83 (>60 ml/min/1.73 sqM); Potassium 3.8 mmol/L (3.5-5.1); Sodium 129 mmol/L (137-145)
[2024-09-22 10:26] LABS: ABG Base Excess 12.1 mmol/L; ABG HCO3 38 mmol/L (21-25); ABG Oxygen Saturation 94.4 % (94-97); ABG PCO2 52 mmHg (35-45); ABG PH 7.48 (7.35-7.45); ABG PO2 69 mmHg (83-108); ABG TCO2 40 mmol/L (19-24); Allen Test Performed? Yes
--- NOTE | 2024-09-22 10:40 | P.PN ---
Subjective Progress Note Date: 09/22/24 Principal diagnosis: Congestive heart failure. This is an 78-year-old female patient with no prior cardiac history but medical history significant for chronic hypoxic respiratory failure secondary to COPD and alpha 1 antitrypsin deficiency presented to the hospital with progressive exertional dyspnea associated with progressive bilateral lower extremity edema for the last few days. No symptoms of chest pain or chest discomfort but she felt she was experiencing severe congestions with no fever and no chills and no cough and no sputum production. No other cardiovascular symptoms of dizziness or lightheadedness or any feeling of heart racing or fluttering or presyncope or syncope. She developed severe bilateral lower extremities edema. When she presented to the hospital she was hypoxic requiring high flow oxygen. Normally she is on 2 L of oxygen continuously. Definitely her oxygen requirement has increased within the last few days and she has been doing pulse oximetry at home and noticed that her oxygen saturation has been low. She underwent further evaluation including EKG showing RBBB. NT proBNP came to be elevated at 5000. First set of troponin is unremarkable with chest x-ray showed finding consistent with pulmonary vascular congestions and left pleural effusion but CT scan of the chest showed no evidence of PE. Venous duplex study showed no evidence of DVT as well. The physical examination is remarkable for regular rhythm with a systolic murmur at the right and left upper sternal border with diminished breathing sounds bilaterally and bilateral rhonchi and severe bilateral lower extremities pitting edema. I initially saw this patient in my office. She was hypoxic and she was in significant volume overload with extensive lower extremit y edema. I directed this patient to the Emergency Department. After being in the hospital for around 3 days, the patient remained hypoxic and the patient remains on Airvo at 45 L with an FiO2 of 65%. Based on that, a pulmonary consultation was requested. I reviewed the CT of the chest that was done on this patient. The patient has extensive emphysematous changes bilaterally and the patient also has a moderate-sized left-sided pleural effusion. No airspace disease. No consolidation. No pneumonias. There is also a new moderate to small size pericardial effusion. Echocardiogram was completed on 08/31/2024 and the patient was found to have a preserved LV function with an EF of around 65% and the patient also had severe RV dilatation, reduced RV global systolic function and severe pulmonary hypertension along with moderate pericardial effusion without signs of any tamponade. The patient had severe tricuspid regurgitation. Estimated right ventricular systolic pressure was 94. For now, the patient is on Lasix 40 mg IV every 12 hours. Monitoring her fluid balance has been essentially negative and the patient has been -2.2 L over the past 24 hours. Most recent electrolytes show a sodium level of 132, potassium of 3.6, BUN 31 with a creatinine 0.7. The white cell count is at 8.8 with a hemoglobin 17.3. She is currently on Lasix 40 mg IV every 12 hours. She is also on Ald actone 25 mg p.o. daily. She remains on IV heparin. The procalcitonin level was 0.08. Troponins were nonelevated. On 09/05/2024, the patient is being seen for a follow-up. The patient is calm and comfortable. The patient is currently on Airvo 45 L with an FiO2 of 65%. She remains on Bumex 1 mg p.o. twice daily and Aldactone 25 mg p.o. daily. She has been diuresing well over the past several days and the patient has been negative fluid balance of 1.1 L over the past 24 hours. No significant shortness of breath at rest. Continues to have significant amount of edema lower extremities bilaterally. The white cell count is at 8.4 with a hemoglobin 17.4 and a platelet count of 167. BUN is 30 with a creatinine of of 0.7. Sodium level is at 132 and a potassium level is at 3.5. Viral screen was negative. Chest x-ray from yesterday was consistent with COPD with chronic emphysematous changes and cardiomegaly and small left-sided pleural effusion. The patient also was noted to have a moderate-sized pericardial effusion without signs of tamponade. The patient was taken off the IV Lasix and the patient was started on Bumex in combination with Aldactone. 09/06/2024, the patient remains on Airvo 45 L with FiO2 of 50%. The fluid balance has been +125 cc over the past 24 hours. Based on that, making recommendations to start the patient on Lasix drip at 5 mg an hour. She continues to have significant amount of edema lower extremities bilaterally. Further workup was ordered by the medical group including a Doppler of lower extremity that showed no evidence of any DVT and CTA of the chest that showed no evidence of any pulmonary embolism. There was extensive bilateral severe emphysematous changes and a chronic left-sided pleural effusion. Based on that, I performed a bedside thoracentesis this patient and I drained approximately 800 cc of pleural fluid from the left lung. The patient tolerated the procedure well without any complications. The fluid will be sent for analysis. The white cell count is 8.4, hemoglobin is 17.4 and platelet count of 167. BUN is 30 with a creatinine of 0.7 and sodium is at 132 and a potassium level is at 3.5. 09/07/2024, the patient is being seen for a follow-up. The patient remains on Airvo at 45 L and FiO2 of 65%. Pulse ox is in the order of 92%. Remains dependent on high flow oxygen. She continues to diurese with Lasix drip at 5 mg an hour. She is postthoracentesis and a total of 800 cc of pleural fluid was aspirated from the left lung. The pleural fluid was a transudate. The chemistry that showed low LDH and low protein. The white cell count was also low with a lymphocytic predominance. The patient has no specific complaints. The white cell count is at 5.6, hemoglobin is 16.6 and a platelet count is at 153. Sodium is at 130, BUN 29 with a creatinine of 0.7. K level is at 3.4. Remains on DuoNeb updrafts. Will start IV Solu-Medrol. 09/08/2024, the patient is being seen for a follow-up. Remains on Airvo 40 L and FiO2 of 65%. Currently on Lasix drip at 5 mg an hour. Also on Zaroxolyn 5 mg p.o. twice a day.. She is also on a combination of bronchodilators and IV Solu- Medrol. Unfortunately, no significant improvement in oxygenation over the past 24 hours and will continue to monitor. The white cell count of 9.5, hemoglobin is at 15.6 and a platelet count of 156. Sodium levels at 129, potassium level 3.3. BUN is 34 with a creatinine of 0.7. Procalcitonin level is at 0.08. Cortisol level is at 32. Pleural fluid aspirated from the left lung was consistent with a transudate. On 09/09/2024, the patient was taken off the Airvo and the patient was placed on 12 L of oxygen by nasal cannula. Current pulse ox is around 88%. She is calm and comfortable. Denies having any new complaints. I am not sure if the patient is having accurate input output measurement. Nevertheless, based on the fluid balance, she is +500 cc over the past 24 hours. She is off the Lasix drip and the patient is currently receiving Lasix 40 mg IV every 12 hours. She is also on Zaroxolyn 5 mg p.o. twice a day. He is also on Aldactone 25 mg p.o. daily. Doing well. Afebrile. Hemodynamically stable. Blood work from today shows a white cell count of 10.3, hemoglobin of 15 and a platelet count of 176. BUN 36 with a creatinine of 0.7. Sodium level is at 128. No other significant events otherwise for now. 09/10/2024, the patient is doing well on 12 L of oxygen by nasal cannula. Pulse ox is ranging between 88 to 92%. No specific complaints. She still diuresing with a combination of Zaroxolyn and IV Lasix. There is some residual lower extremity edema. The white cell count of 8.7 with a hemoglobin of 6.4 and a platelet count of 161. Patient also has a stable level of 127, potassium level of 3.4,, chloride 86, BUN is 40 with a creatinine of 0.6. Patient was seen today on 09/11/2024, remains on the cardiac floor, remains on 12 L high flow nasal cannula, O2 saturation is 92%. Patient has been diuresing wit different diuretics including Zaroxolyn and Lasix, does not seem to be in distress Patient had thoracentesis done by Dr. San about 5 days ago, cytology was negative for malignancy, fluid was mostly transudative in nature. WBC is 9.3 hemoglobin 16.4 electrolytes are relatively normal except of sodium 128, BUN is 39 creatinine 0.76 hemodynamically the patient is stable, clinically she feels better, breathing easier, still being followed by many consultants including cardiology, patient is responding to diuretics but nonetheless she still requiring significant amount of FiO2. Patient was seen today on 09/12/2024, patient is feeling better today, less shortness of breath, no chest pain, no chest pressure, no tightness, patient remains on diuretics, she is on oral Lasix, cardiology is handling diuretics patient had a follow-up chest x-ray with small recurrent left pleural effusion noted, some atelectasis, patient is still requiring relatively high FiO2, on 12 L nasal cannula. No plans to perform thoracentesis on this patient since the size of the fluid is #1 way too small, and patient had previous thoracentesis the fluid was transudative in nature. CT angiogram of the chest on admission showed no evidence of pulmonary embolism on this patient. Seen today on09/13/24, patient is clinically feeling better, however she remains on high FiO2 at 12 L, O2 sat show is marginal. Chest x-ray showed small left pleural effusion, previous CT angiogram of the chest to rule out pulmonary embolism patient remains on diuretics, she does have pulmonary hypertension, overall not much of a change in the last few days. Basically about the same. However she could not be discharged home on 12 L nasal cannula and we are continuing diuretics. Also on bronchodilators Patient was seen today , clinically improving but her FiO2 requirement remains high on 12 L high flow nasal cannula titrated down to 9 L and maintain her O2 saturation in the low 90s. Patient has very minimal small left pleural effusion to explain her profound hypoxia, hence today I recommended a CT angiogram on this patient. And this is pending. My index of suspicion for pulmonary embolism is rather low but considering her ongoing hypoxia it is best to be safe and address that accordingly. She did have CT angiogram on her initial presentation and that was negative for PE. WBC count 15.17 hemoglobin is 18.2 electrolytes are normal renal profile is relatively normal bicarb is 40. Patient was seen today on 09/15/2024, patient remains about the same, clinically better but still requiring high O2 flow, she is now on 10 L high flow nasal cannula, CT angiogram of the chest showed no evidence of pulmonary embolism, the effusion is very small, and clearly not contributing to her hypoxia much. Patient remains on diuretics, remains on bronchodilators, clinically better but still requiring high FiO2. Labs today were reviewed bicarb is 45 renal profile is normal sodium is 128 Seen today on 09/16/2024, basically about the same, remains on high flow nasal cannula at 12 L today, O2 sats is marginal, patient does not seem to be showing any significant improvement whatsoever. Clinically she seems to be comfortable, and not in distress. WBC is 15.3 hemoglobin 16.5 electrolytes are abnormal with low sodium low potassium low chloride elevated bicarb, BUN is 41 creatinine 0.72, electrolytes are being addressed by admitting physician. Seen today on 09/17/2024, she is now on 10 L high flow nasal cannula, remains marginal at best, patient is not symptomatic, but she desaturates easily down to the 80s when her FiO2 is below 10 L. Patient is comfortable, remains on diuretics, remains on bronchodilators, remains on steroids, not much of a change has been noticed over the last 1 week. WBC count is 20.47 hemoglobin 16.8 sodium is low at 128 potassium 2.9 bicarb is 48. Is 44 creatinine 0.75 Progress note dated September 18, 2024. This is an 78-year-old female seen today in room 351. The patient was admitted with a diagnosis of CHF. Currently she remains on 10 L high flow O2. Saturations are 90 to 91%. The patient is not receiving any IV fluids. Current laboratory data includes a white count of 19.1, hemoglobin 15.7, hematocrit 45.3, and a platelet count of 231,000. Sodium 129, potassium 3.8, chlorides 76, and CO2 49, BUN 46, and creatinine 0.68. Glucose 173. Calcium 9.6 with a magnesium of 1.8. CTA done on September 14 shows no evidence of pulmonary embolism, but improved subcutaneous edema. There is a small right pleural effusion, and a small to moderate size left pleural effusion. Progress note dated September 19, 2024. 78-year-old female seen again in room 351. She continues on high flow nasal O2 at 11 L/min. She is not receiving any IV fluids. Today we increased her Pulmicort up to 1 mg, twice a day, we also DC albuterol, and add DuoNebs, 4 times daily and as needed. Will check a chest x-ray, and will do an ultrasound of the left chest, to see if the effusion, is large enough to do thoracentesis. Current laboratory data includes a white count of 20.1, hemoglobin 15.3, hematocrit 43.0, and a platelet count of 209,000. Sodium 128, potassium 3.4, chloride 79, CO2 41, BUN 46, and creatinine 0.68. Glucose is 122. Calcium is 9.4. Progress note dated September 20, 2024. 78-year-old female seen again in room 351. The patient continues on high flow oxygen, at 11 L/min. The ultrasound of the chest showed a relatively small effusion, and there was lung tissue, within the effusion. We had ordered an echocardiogram, with bubble study, to rule out a shunt, but apparently cardiology and the ophthalmology technician, thought that shunt was unlikely, given the patient's high right-sided pressures. White count is 19, hemoglobin 14.3, hematocrit 40.9, and platelet count was 224,000. Sodium 129, potassium 3.2, chlorides 79, CO2 38, anion gap 12, BUN 43, creatinine 0.69. Close was 156. Calcium 9.3. Chest x-ray suggest COPD, cardiomegaly, and mild pulmonary vascular congestion. There is a small left pleural effusion. Progress note dated September 21, 2024. 78-year-old female seen again in room 351. The patient continues on high flow nasal cannula 12 L. Her saturations are 95%. She has no specific complaints. She has not been improving at all, and hospice should be considered for this patient. Will leave that up to the primary service. Current laboratory data includes a sodium 129, potassium 4.1, chloride 86, CO2 39, BUN 37, and creatinine 0.71. Glucose is 110. Calcium was 9.6. Progress note dated September 22, 2024. 78-year-old female again seen in room 351. The patient continues on 12 L high flow nasal cannula. She is not receiving any IV fluids. The patient is a DO NOT RESUSCITATE patient. The nurse turns down the nasal cannula from 12 L to 10 L. I asked for a blood gas in 30 minutes. Clinically, the patient is doing about the same. Current laboratory data includes a white count of 16.9, hemoglobin 14.2, hematocrit 41.7, and a platelet count of 212,000. Sodium 129, potassium 3.8, chlorides 86, CO2 39, BUN 36, creatinine 0.67. Glucose is 99. Calcium is 9.2. Objective - Vital Signs Vital signs: Vital Signs Temp 97.6 F 09/22/24 07:44 Pulse 77 09/22/24 08:23 Resp 18 09/22/24 08:23 BP 103/69 09/22/24 07:44 Pulse Ox 96 09/22/24 07:50 FiO2 70 09/09/24 08:20 Intake & Output 09/21/24 09/22/24 09/22/24 18:59 06:59 18:59 Intake Total 930 50 431 Output Total 950 701 Balance -20 -651 431 Weight 56.2 kg Intake: IV 20 Invasive Line 6 20 Oral 910 50 431 Output: Urine 950 700 Stool 1 Other: Voiding Method Bedside Commode Bedside Commode Bedside Commode # Voids 1 1 # Bowel Movements 1 - Exam No acute distress, oriented 3. Currently on 12 L high flow oxygen. HEENT examination is grossly unremarkable. Mucous membranes are moist. No oral lesions. Neck supple. Full range of motion. No adenopathy thyromegaly or neck vein distention. Cardiovascular examination reveals regular rhythm rate. S1-S2 normal. No S3 or S4. A soft systolic murmur is noted. Lungs reveal basilar crackles, and mild rhonchi. Breath sounds are diminished at the left lung base. Abdomen soft bowel sounds are heard. No masses or tenderness. Extremities are intact. No cyanosis or clubbing. Trace edema noted. Skin is without rash or lesion. Neurologic examination is brief but nonfocal. - Labs CBC & Chem 7: 09/22/24 05:18 09/22/24 05:18 Labs: Abnormal Lab Results - Last 24 Hours (Table) 09/21/24 09/21/24 09/21/24 Range/Units 11:29 16:23 19:59 WBC (4.50-10.00) 10*3/uL Immature Gran # (0.00-0.04) 10*3/uL Neutrophils # (1.80-7.70) 10*3/uL Lymphocytes # (0.90-5.00) 10*3/uL Eosinophils # (0.04-0.35) 10*3/uL Sodium (137-145) mmol/L Chloride (98-107) mmol/L Carbon Dioxide (22-30) mmol/L BUN (7-17) mg/dL POC Glucose (mg/dL) 120 H 170 H 121 H (70-110) mg/dL 09/22/24 09/22/24 Range/Units 05:18 05:18 WBC 16.87 H (4.50-10.00) 10*3/uL Immature Gran # 0.14 H (0.00-0.04) 10*3/uL Neutrophils # 15.59 H (1.80-7.70) 10*3/uL Lymphocytes # 0.41 L (0.90-5.00) 10*3/uL Eosinophils # 0.02 L (0.04-0.35) 10*3/uL Sodium 129 L (137-145) mmol/L Chloride 86 L (98-107) mmol/L Carbon Dioxide 39 H (22-30) mmol/L BUN 36 H (7-17) mg/dL POC Glucose (mg/dL) (70-110) mg/dL Microbiology - Last 24 Hours (Table) 09/19/24 12:45 Blood Culture - Preliminary Blood Assessment and Plan Assessment: Acute on chronic hypoxemic respiratory failure. Acute on chronic heart failure, with preserved ejection fraction. Chronic right-sided heart failure with severe pulmonary hypertension, and cor pulmonale. Moderate pericardial effusion. Severe pulmonary hypertension. Left pleural effusion,S/P thoracentesis, September 06, 2024. Fluid analysis suggested transudate. Trace pneumothorax, S/P thoracentesis. History of panic attacks and generalized anxiety disorder. History of gout. Urinary retention. Hyponatremia. Plan: Plan dated September 18, 2024. The patient continues on oxygen. We will attempt to titrate the FiO2 down. Labs, x-rays, and medications are reviewed. We will continue to follow make recommendations. The patient continues on diuretics and corticosteroids, as well as bronchodilators. Prognosis is guarded. Labs, x-rays, and medications are reviewed. Dictation was produced using [employer] software. Please excuse any grammatical, word or spelling errors. Plan dated September 19, 2024. The patient is now receiving nasal O2, high-frequency, at 11 L/min. In addition, we DC the albuterol, in favor of DuoNebs, 4 times daily and as needed. Will recheck a chest x-ray, and do an ultrasound of left chest, with markings. We also increase Pulmicort to 1 mg. All labs, x-rays, and medications are reviewed. We will continue to follow make recommendations. Hoping to improve the patient's oxygenation, so that she can be discharged. She does have some mild 1+ lower extremity edema. Dictation was produced using [employer] software. Please excuse any grammatical, word or spelling errors. Plan dated September 20, 2024. The patient is still on high flow O2 at 11 L. The patient's chest x-ray suggest some cardiomegaly, a small left-sided pleural effusion, and mild CHF. Ultrasound, showed a small left-sided pleural effusion, with lung tissue intermixed. Previous thoracentesis did result in a small pneumothorax. The fluid was transudative. Labs, x-rays, medications are reviewed. We will continue to follow. Prognosis is guarded. The patient is a DO NOT RESUSCITATE patient. She may have to consider something like palliative care, or hospice, if we cannot titrate down her oxygen requirements. Dictation was produced using [employer] software. Please excuse any grammatical, word or spelling errors. Plan dated September 21, 2024. The patient continues on high flow nasal O2 at 12 L. The patient's chest x-ray suggested some cardiomegaly, and a small left-sided pleural effusion. In addition, there was a suggestion of mild CHF. Ultrasound showed a small left- sided pleural effusion, with lung tissue intermixed. Previous thoracentesis did result in a small pneumothorax, and the fluid that was removed, was transu dative. Labs, x-rays, medications are reviewed. The patient has made no significant progress. Palliative care consult or hospice consult should be considered. We will continue to follow. All labs, x-rays, and medications are reviewed. Dictation was produced using [employer] software. Please excuse any grammatical, word or spelling errors. Plan dated September 22, 2024. The patient is again seen today in room 351. She is on 12 L high flow nasal cannula. The nurse turns her down to 10 L. Will get a blood gas in 30 minutes. She is not receiving any IV fluids. She is a DO NOT RESUSCITATE patient. Labs, x-rays, and all medications are reviewed. Prognosis is very poor. Hospice consultation or palliative care consultation, should be considered. We will continue to follow. Dictation was produced using [employer] software. Please excuse any grammatical, word or spelling errors. Time with Patient: Less than 30
[2024-09-22 11:37] LABS: Glucose,Whole Blood 121 mg/dL (70-110)
--- NOTE | 2024-09-22 15:44 | P.PN ---
Subjective Progress Note Date: 09/22/24 Principal diagnosis: Reason for follow-up is leukocytosis Patient is a 78-year-old female with a past medical history significant for COPD heart failure gout anxiety panic disorder hypertension presenting to the hospital about 3 weeks before initial evaluation for eval uation of difficulty in breathing she did have elevated white count probably this consultation On today's visit that is 09/22/2024, the patient continues to be afebrile, the patient is on 10 L high flow nasal oxygen so recommended for shortness of breath no chest pain no abdominal pain no diarrhea. Patient went cortisol 16.87 creatinine 0.67 blood culture has been negative Objective - Vital Signs Vital signs: Vital Signs Temp 97.6 F 09/22/24 11:54 Pulse 87 09/22/24 11:54 Resp 19 09/22/24 11:54 BP 107/69 09/22/24 11:54 Pulse Ox 91 L 09/22/24 11:54 FiO2 70 09/09/24 08:20 Intake & Output 09/21/24 09/22/24 09/22/24 18:59 06:59 18:59 Intake Total 930 50 552 Output Total 950 701 Balance -20 -651 552 Weight 56.2 kg Intake: IV 20 Invasive Line 6 20 Oral 910 50 552 Output: Urine 950 700 Stool 1 Other: Voiding Method Bedside Commode Bedside Commode Bedside Commode # Voids 1 1 1 # Bowel Movements 1 1 - Exam GENERAL DESCRIPTION: An elderly female up in chair in no distress RESPIRATORY SYSTEM: Unlabored breathing , decreased breath sounds at bases HEART: S1 S2 regular rate and rhythm , ABDOMEN: Soft , no tenderness EXTREMITIES: No edema feet - Labs CBC & Chem 7: 09/22/24 05:18 09/22/24 05:18 Labs: Abnormal Lab Results - Last 24 Hours (Table) 09/21/24 09/21/24 09/22/24 Range/Units 16:23 19:59 05:18 WBC (4.50-10.00) 10*3/uL Immature Gran # (0.00-0.04) 10*3/uL Neutrophils # (1.80-7.70) 10*3/uL Lymphocytes # (0.90-5.00) 10*3/uL Eosinophils # (0.04-0.35) 10*3/uL ABG pH (7.35-7.45) ABG pCO2 (35-45) mmHg ABG pO2 (83-108) mmHg ABG HCO3 (21-25) mmol/L ABG Total CO2 (19-24) mmol/L Sodium 129 L (137-145) mmol/L Chloride 86 L (98-107) mmol/L Carbon Dioxide 39 H (22-30) mmol/L BUN 36 H (7-17) mg/dL POC Glucose (mg/dL) 170 H 121 H (70-110) mg/dL 09/22/24 09/22/24 09/22/24 Range/Units 05:18 10:21 11:35 WBC 16.87 H (4.50-10.00) 10*3/uL Immature Gran # 0.14 H (0.00-0.04) 10*3/uL Neutrophils # 15.59 H (1.80-7.70) 10*3/uL Lymphocytes # 0.41 L (0.90-5.00) 10*3/uL Eosinophils # 0.02 L (0.04-0.35) 10*3/uL ABG pH 7.48 H (7.35-7.45) ABG pCO2 52 H (35-45) mmHg ABG pO2 69 L (83-108) mmHg ABG HCO3 38 H (21-25) mmol/L ABG Total CO2 40 H (19-24) mmol/L Sodium (137-145) mmol/L Chloride (98-107) mmol/L Carbon Dioxide (22-30) mmol/L BUN (7-17) mg/dL POC Glucose (mg/dL) 121 H (70-110) mg/dL Microbiology - Last 24 Hours (Table) 09/19/24 12:45 Blood Culture - Preliminary Blood Assessment and Plan (1) Leukocytosis Current Visit: Yes Status: Acute Code(s): D72.829 - ELEVATED WHITE BLOOD CELL COUNT, UNSPECIFIED SNOMED Code(s): 049473997 (2) Penicillin allergy Current Visit: Yes Status: Acute Code(s): Z88.0 - SNOMED Code(s): 01458546 Plan: 1patient with elevated white count over the last 1 week and this patient has been in the hospital for almost 3 weeks before this initial consultation and has been treated for CHF exacerbation did require thoracocentesis on 09/06/2024 and those culture have been negative patient did not have any fever during this hospital stay does not look toxic has been exposed to steroids questionable steroid effect versus oropharyngeal candidiasis 2-cultures are currently pending 3. Patient white count is down to 16,000, to continue with the Diflucan and monitor clinical course closely Dictation was produced using [employer] dictation software. please excuse any grammatical, word or spelling errors. Time with Patient: Less than 30
[2024-09-22 16:30] LABS: Glucose,Whole Blood 150 mg/dL (70-110)
[2024-09-22 20:03] LABS: Glucose,Whole Blood 127 mg/dL (70-110)
--- NOTE | 2024-09-22 21:57 | P.PN ---
Subjective Progress Note Date: 09/22/24 Patient is admitted for multifactorial respiratory failure secondary to CHF COPD with acute exacerbation still having hypoxia patient is on 10 L of oxygen patient has diminished air entry into bilateral lung gupta patient has alpha-1 antitrypsin deficiency leading to severe emphysema usually uses oxygen but patient is on high amount of oxygen at this time patient also has chronic right- sided heart failure with severe pulmonary hypertension and cor pulmonale. Patient had a CT of the chest as we are unable to wean her off oxygen CT did not show any pulmonary embolism but did show some pericardial effusion. 09/15/2024 Patient is evaluated today in the follow up. Sitting up in the chair. Continues with significant peripheral edema and pitting up to the thighs. Continues on oral lasix BID. Urine out 2.2 L so far today. IV lasix x 1 dose given also. Patient continues on 10 L of oxygen via nasal cannula. Labs today reveal sodium 128, potassium 3.4, CO2 45, BNP 18,000. Dr Allan in to see patient today for routine care and trimming of the nails on bilateral feet. 09/16/2024 Patient is evaluated again sitting up in the chair. Patients peripheral edema slightly improved. Over 4L of urine output yesterday. Remains on oral lasix 40 mg BID. Oxygen was increased to 12L hi flow. Labs today reveal white blood cell count 15.33, hgb 16.5, sodium 128, BUN 41, creatinine 0.72. Chloride 74, CO2 45. 09/17/2024 Patient is evaluated today sitting up in the chair. Patient continues with peripheral edema. Remains on 10 L of oxygen via nasal cannula. Not having any significant complaints. On fluid restriction 1200 CC. Labs today reveal white blood cell count of 20.47, hgb 16.8, sodium 128, potassium 3.4, CO2 48, chloride 73,. 09/18/2024 Patient is evaluated in follow-up today by the chair family at the bedside. She continues with significant lower extremity peripheral edema. She remains on times of oxygen via nasal cannula. She continues on Lasix 40 mg oral twice daily. White blood cell count today is 19.14, sodium level 129. BUN 46 creatinine 0.68. Heart rate in the 100s. 09/19/2024 Patient is eval in follow-up on the medical floor. Repeat chest x-ray reveals COPD and cardiomegaly suggest mild pulmonary vascular congestion. Similar to slightly improved small pleural effusion with adjacent atelectasis and/or consolidation. Subsequently patient went for a chest ultrasound which reveals a small to moderate 6.6 cm left pleural effusion pocket size. Was marked for possible thoracentesis. White blood cell count elevated at 20.11. Sodium level of 128 potassium 3.4, BUN of 46 creatinine 0.68. His CRP level was elevated at 5.7. Her viral panel repeat was negative for influenza RSV and COVID. ID was consulted for further management of the leukocytosis. 09/20/2024 Patient is evaluated today in follow up. States she feels tired today and has been dozing off. Chest ultrasound reveals small to moderate left pleural effusion. Continues on oral lasix 40 mg twice daily. Patient is on 12L hi flow cannula. White blood cell count 19.03, hgb 14.3, sodium 129, potassium 3.2, BUN 43, creatinine 0.69. Procalcitonin level 0.17. Pulmonology at this time not planning on thoracentesis. 09/21/2024 Patient is evaluated today in follow up. Patient sitting up in the chair. Re ned on 12L of oxygen via nasal cannula. Breathing more labored today. Discussed hospice vs. palliative care. Patient is on oral diflucan. Followed closely by ID and pulmonology. 09/22/2024 Patient is evaluated today in follow up sitting up in the chair. Down to 10 L of oxygen. ABGs done today and per pulmonary OK to leave the patient on 10L. White blood cell count 16. Sodium 129. No acute complaints, states she is breathing better today. Review of Systems Constitutional: Denied any fatigue denied any fever. Cardio vascular: denied any chest pain, palpitations Gastrointestinal: denied any nausea, vomiting, diarrhea Pulmonary: Denied any shortness of breath cough Neurologic denied any new focal deficits All inpatient medications were reviewed and appropriate changes in these medications as dictated in the interval history and assessment and plan. PHYSICAL EXAMINATION: GENERAL: The patient is alert and oriented x3, not in any acute distress. Thin built cachectic female HEENT: Pupils are round and equally reacting to light. EOMI. No scleral icterus. No conjunctival pallor. Normocephalic, atraumatic. No pharyngeal erythema. No thyromegaly. CARDIOVASCULAR: S1 and S2 present. No murmurs, rubs, or gallops. PULMONARY: Decreased air entry to bilateral lung gupta ABDOMEN: Soft, nontender, nondistended, normoactive bowel sounds. No palpable organomegaly. MUSCULOSKELETAL: No joint swelling or deformity. EXTREMITIES: No cyanosis, clubbing, +1 pitting lower extremity edema NEUROLOGICAL: Gross neurological examination did not reveal any focal deficits. SKIN: No rashes. Assessment and plan -Acute on chronic hypoxic and hypercapnic respiratory failure secondary to COPD exacerbation right-sided heart failure pulmonary hypertension -Small to moderate left-sided pleural effusion patient is s/p thoracentesis of the left on September 06. At that time 800 mL of fluid was removed. -Hyponatremia secondary to excessive diuresis - Acute cor pulmonale - Leukocytosis likely steroid-induced - Congestive heart failure with preserved ejection fraction or diastolic dysfunction - Severe pulmonary hypertension - Trace pneumothorax with status post thoracentesis - Mild to moderate pericardial effusion - Urinary retention patient has a Alba catheter in place DVT prophylaxis: Patient will be started on low-dose Lovenox Continue oral lasix 40 mg BID and strict intake and output monitoring. Steroids have been decreased to oral prednisone 40 mg daily. Wean oxygen as tolerated. Repeat CBC, BMP in the AM. Cardiology and pulmonology following. Infectious disease was consulted. Patient has been started on oral diflucan. Pulmonology with no plans for thoracentesis at this time. Patient continues on oxygen via nasal cannula at 10L Hospice vs. palliative may be appropriate at this time and this was discussed briefly with the patient for now she would like to continue current plan of care. The impression and plan of care has been dictated by Neli Redding, Nurse Practitioner as directed. Dr. Abe MD I have performed a history and physical examination and medical decision making of this patient, discussed the same with the dictator, and agree with the dictators assessment and plan as written, documented as a scribe. Based on total visit time, I have performed more than 50% of this visit. Objective - Vital Signs Vital signs: Vital Signs Temp 97.9 F 09/22/24 20:00 Pulse 84 09/22/24 20:00 Resp 20 09/22/24 20:00 BP 93/51 09/22/24 20:00 Pulse Ox 94 L 09/22/24 20:00 FiO2 70 09/09/24 08:20 Intake & Output 0409/22/24 09/23/24 06:59 18:59 06:59 Intake Total 50 672 80 Output Total 701 450 350 Balance -651 222 -270 Weight 56.2 kg Intake: Oral 50 672 80 Output: Urine 700 450 350 Stool 1 Other: Voiding Method Bedside Commode Bedside Commode Bedside Commode # Voids 1 1 # Bowel Movements 1 - Labs CBC & Chem 7: 09/22/24 05:18 09/22/24 05:18 Labs: Abnormal Lab Results - Last 24 Hours (Table) 09/22/24 09/22/24 09/22/24 Range/Units 05:18 05:18 10:21 WBC 16.87 H (4.50-10.00) 10*3/uL Immature Gran # 0.14 H (0.00-0.04) 10*3/uL Neutrophils # 15.59 H (1.80-7.70) 10*3/uL Lymphocytes # 0.41 L (0.90-5.00) 10*3/uL Eosinophils # 0.02 L (0.04-0.35) 10*3/uL ABG pH 7.48 H (7.35-7.45) ABG pCO2 52 H (35-45) mmHg ABG pO2 69 L (83-108) mmHg ABG HCO3 38 H (21-25) mmol/L ABG Total CO2 40 H (19-24) mmol/L Sodium 129 L (137-145) mmol/L Chloride 86 L (98-107) mmol/L Carbon Dioxide 39 H (22-30) mmol/L BUN 36 H (7-17) mg/dL POC Glucose (mg/dL) (70-110) mg/dL 09/22/24 09/22/24 09/22/24 Range/Units 11:35 16:28 20:02 WBC (4.50-10.00) 10*3/uL Immature Gran # (0.00-0.04) 10*3/uL Neutrophils # (1.80-7.70) 10*3/uL Lymphocytes # (0.90-5.00) 10*3/uL Eosinophils # (0.04-0.35) 10*3/uL ABG pH (7.35-7.45) ABG pCO2 (35-45) mmHg ABG pO2 (83-108) mmHg ABG HCO3 (21-25) mmol/L ABG Total CO2 (19-24) mmol/L Sodium (137-145) mmol/L Chloride (98-107) mmol/L Carbon Dioxide (22-30) mmol/L BUN (7-17) mg/dL POC Glucose (mg/dL) 121 H 150 H 127 H (70-110) mg/dL Microbiology - Last 24 Hours (Table) 09/19/24 12:45 Blood Culture - Preliminary Blood Assessment and Plan Time with Patient: Less than 30
[2024-09-23 06:13] LABS: Glucose,Whole Blood 107 mg/dL (70-110)
[2024-09-23 06:24] LABS: Basophils # (A) 0.02 10*3/uL (0.00-0.10); Basophils % (A) 0.1 %; Eosinophils # (A) 0.03 10*3/uL (0.04-0.35); Eosinophils % (A) 0.2 %; HCT 45.4 % (37.2-46.3); HGB 15.3 g/dL (12.0-15.0); Lymphocytes # (A) 0.51 10*3/uL (0.90-5.00); Lymphocytes % (A) 3.5 %; MCH 31.1 pg (27.0-32.0); MCHC 33.7 g/dL (32.0-37.0); MCV 92.3 fL (80.0-97.0); Monocytes # (A) 0.78 10*3/uL (0.20-1.00); Monocytes % (A) 5.4 %; Neutrophils # (A) 13.03 10*3/uL (1.80-7.70); Platelet Count 237 10*3/uL (140-440); RBC 4.92 10*6/uL (4.10-5.20); RDW 16.4 % (11.5-14.5); WBC 14.48 10*3/uL (4.50-10.00)
[2024-09-23 06:53] LABS: African American GFR (CKD) 83 (>60 ml/min/1.73 sqM); Blood Urea Nitrogen 38 mg/dL (7-17); Calcium 9.6 mg/dL (8.4-10.2); Chloride 85 mmol/L (98-107); Glucose 61 mg/dL (74-99); Non-African American GFR(CKD) 72 (>60 ml/min/1.73 sqM); Potassium 3.9 mmol/L (3.5-5.1); Sodium 131 mmol/L (137-145)
[2024-09-23 07:01] LABS: Anion Gap 7 mmol/L; Carbon Dioxide 39 mmol/L (22-30)
--- NOTE | 2024-09-23 10:47 | P.PN ---
Subjective Progress Note Date: 09/23/24 Principal diagnosis: Congestive heart failure. This is an 78-year-old female patient with no prior cardiac history but medical history significant for chronic hypoxic respiratory failure secondary to COPD and alpha 1 antitrypsin deficiency presented to the hospital with progressive exertional dyspnea associated with progressive bilateral lower extremity edema for the last few days. No symptoms of chest pain or chest discomfort but she felt she was experiencing severe congestions with no fever and no chills and no cough and no sputum production. No other cardiovascular symptoms of dizziness or lightheadedness or any feeling of heart racing or fluttering or presyncope or syncope. She developed severe bilateral lower extremities edema. When she presented to the hospital she was hypoxic requiring high flow oxygen. Normally she is on 2 L of oxygen continuously. Definitely her oxygen requirement has increased within the last few days and she has been doing pulse oximetry at home and noticed that her oxygen saturation has been low. She underwent further evaluation including EKG showing RBBB. NT proBNP came to be elevated at 5000. First set of troponin is unremarkable with chest x-ray showed finding consistent with pulmonary vascular congestions and left pleural effusion but CT scan of the chest showed no evidence of PE. Venous duplex study showed no evidence of DVT as well. The physical examination is remarkable for regular rhythm with a systolic murmur at the right and left upper sternal border with diminished breathing sounds bilaterally and bilateral rhonchi and severe bilateral lower extremities pitting edema. I initially saw this patient in my office. She was hypoxic and she was in significant volume overload with extensive lower extremit y edema. I directed this patient to the Emergency Department. After being in the hospital for around 3 days, the patient remained hypoxic and the patient remains on Airvo at 45 L with an FiO2 of 65%. Based on that, a pulmonary consultation was requested. I reviewed the CT of the chest that was done on this patient. The patient has extensive emphysematous changes bilaterally and the patient also has a moderate-sized left-sided pleural effusion. No airspace disease. No consolidation. No pneumonias. There is also a new moderate to small size pericardial effusion. Echocardiogram was completed on 08/31/2024 and the patient was found to have a preserved LV function with an EF of around 65% and the patient also had severe RV dilatation, reduced RV global systolic function and severe pulmonary hypertension along with moderate pericardial effusion without signs of any tamponade. The patient had severe tricuspid regurgitation. Estimated right ventricular systolic pressure was 94. For now, the patient is on Lasix 40 mg IV every 12 hours. Monitoring her fluid balance has been essentially negative and the patient has been -2.2 L over the past 24 hours. Most recent electrolytes show a sodium level of 132, potassium of 3.6, BUN 31 with a creatinine 0.7. The white cell count is at 8.8 with a hemoglobin 17.3. She is currently on Lasix 40 mg IV every 12 hours. She is also on Ald actone 25 mg p.o. daily. She remains on IV heparin. The procalcitonin level was 0.08. Troponins were nonelevated. On 09/05/2024, the patient is being seen for a follow-up. The patient is calm and comfortable. The patient is currently on Airvo 45 L with an FiO2 of 65%. She remains on Bumex 1 mg p.o. twice daily and Aldactone 25 mg p.o. daily. She has been diuresing well over the past several days and the patient has been negative fluid balance of 1.1 L over the past 24 hours. No significant shortness of breath at rest. Continues to have significant amount of edema lower extremities bilaterally. The white cell count is at 8.4 with a hemoglobin 17.4 and a platelet count of 167. BUN is 30 with a creatinine of of 0.7. Sodium level is at 132 and a potassium level is at 3.5. Viral screen was negative. Chest x-ray from yesterday was consistent with COPD with chronic emphysematous changes and cardiomegaly and small left-sided pleural effusion. The patient also was noted to have a moderate-sized pericardial effusion without signs of tamponade. The patient was taken off the IV Lasix and the patient was started on Bumex in combination with Aldactone. 09/06/2024, the patient remains on Airvo 45 L with FiO2 of 50%. The fluid balance has been +125 cc over the past 24 hours. Based on that, making recommendations to start the patient on Lasix drip at 5 mg an hour. She continues to have significant amount of edema lower extremities bilaterally. Further workup was ordered by the medical group including a Doppler of lower extremity that showed no evidence of any DVT and CTA of the chest that showed no evidence of any pulmonary embolism. There was extensive bilateral severe emphysematous changes and a chronic left-sided pleural effusion. Based on that, I performed a bedside thoracentesis this patient and I drained approximately 800 cc of pleural fluid from the left lung. The patient tolerated the procedure well without any complications. The fluid will be sent for analysis. The white cell count is 8.4, hemoglobin is 17.4 and platelet count of 167. BUN is 30 with a creatinine of 0.7 and sodium is at 132 and a potassium level is at 3.5. 09/07/2024, the patient is being seen for a follow-up. The patient remains on Airvo at 45 L and FiO2 of 65%. Pulse ox is in the order of 92%. Remains dependent on high flow oxygen. She continues to diurese with Lasix drip at 5 mg an hour. She is postthoracentesis and a total of 800 cc of pleural fluid was aspirated from the left lung. The pleural fluid was a transudate. The chemistry that showed low LDH and low protein. The white cell count was also low with a lymphocytic predominance. The patient has no specific complaints. The white cell count is at 5.6, hemoglobin is 16.6 and a platelet count is at 153. Sodium is at 130, BUN 29 with a creatinine of 0.7. K level is at 3.4. Remains on DuoNeb updrafts. Will start IV Solu-Medrol. 09/08/2024, the patient is being seen for a follow-up. Remains on Airvo 40 L and FiO2 of 65%. Currently on Lasix drip at 5 mg an hour. Also on Zaroxolyn 5 mg p.o. twice a day.. She is also on a combination of bronchodilators and IV Solu- Medrol. Unfortunately, no significant improvement in oxygenation over the past 24 hours and will continue to monitor. The white cell count of 9.5, hemoglobin is at 15.6 and a platelet count of 156. Sodium levels at 129, potassium level 3.3. BUN is 34 with a creatinine of 0.7. Procalcitonin level is at 0.08. Cortisol level is at 32. Pleural fluid aspirated from the left lung was consistent with a transudate. On 09/09/2024, the patient was taken off the Airvo and the patient was placed on 12 L of oxygen by nasal cannula. Current pulse ox is around 88%. She is calm and comfortable. Denies having any new complaints. I am not sure if the patient is having accurate input output measurement. Nevertheless, based on the fluid balance, she is +500 cc over the past 24 hours. She is off the Lasix drip and the patient is currently receiving Lasix 40 mg IV every 12 hours. She is also on Zaroxolyn 5 mg p.o. twice a day. He is also on Aldactone 25 mg p.o. daily. Doing well. Afebrile. Hemodynamically stable. Blood work from today shows a white cell count of 10.3, hemoglobin of 15 and a platelet count of 176. BUN 36 with a creatinine of 0.7. Sodium level is at 128. No other significant events otherwise for now. 09/10/2024, the patient is doing well on 12 L of oxygen by nasal cannula. Pulse ox is ranging between 88 to 92%. No specific complaints. She still diuresing with a combination of Zaroxolyn and IV Lasix. There is some residual lower extremity edema. The white cell count of 8.7 with a hemoglobin of 6.4 and a platelet count of 161. Patient also has a stable level of 127, potassium level of 3.4,, chloride 86, BUN is 40 with a creatinine of 0.6. Patient was seen today on 09/11/2024, remains on the cardiac floor, remains on 12 L high flow nasal cannula, O2 saturation is 92%. Patient has been diuresing wit different diuretics including Zaroxolyn and Lasix, does not seem to be in distress Patient had thoracentesis done by Dr. San about 5 days ago, cytology was negative for malignancy, fluid was mostly transudative in nature. WBC is 9.3 hemoglobin 16.4 electrolytes are relatively normal except of sodium 128, BUN is 39 creatinine 0.76 hemodynamically the patient is stable, clinically she feels better, breathing easier, still being followed by many consultants including cardiology, patient is responding to diuretics but nonetheless she still requiring significant amount of FiO2. Patient was seen today on 09/12/2024, patient is feeling better today, less shortness of breath, no chest pain, no chest pressure, no tightness, patient remains on diuretics, she is on oral Lasix, cardiology is handling diuretics patient had a follow-up chest x-ray with small recurrent left pleural effusion noted, some atelectasis, patient is still requiring relatively high FiO2, on 12 L nasal cannula. No plans to perform thoracentesis on this patient since the size of the fluid is #1 way too small, and patient had previous thoracentesis the fluid was transudative in nature. CT angiogram of the chest on admission showed no evidence of pulmonary embolism on this patient. Seen today on09/13/24, patient is clinically feeling better, however she remains on high FiO2 at 12 L, O2 sat show is marginal. Chest x-ray showed small left pleural effusion, previous CT angiogram of the chest to rule out pulmonary embolism patient remains on diuretics, she does have pulmonary hypertension, overall not much of a change in the last few days. Basically about the same. However she could not be discharged home on 12 L nasal cannula and we are continuing diuretics. Also on bronchodilators Patient was seen today , clinically improving but her FiO2 requirement remains high on 12 L high flow nasal cannula titrated down to 9 L and maintain her O2 saturation in the low 90s. Patient has very minimal small left pleural effusion to explain her profound hypoxia, hence today I recommended a CT angiogram on this patient. And this is pending. My index of suspicion for pulmonary embolism is rather low but considering her ongoing hypoxia it is best to be safe and address that accordingly. She did have CT angiogram on her initial presentation and that was negative for PE. WBC count 15.17 hemoglobin is 18.2 electrolytes are normal renal profile is relatively normal bicarb is 40. Patient was seen today on 09/15/2024, patient remains about the same, clinically better but still requiring high O2 flow, she is now on 10 L high flow nasal cannula, CT angiogram of the chest showed no evidence of pulmonary embolism, the effusion is very small, and clearly not contributing to her hypoxia much. Patient remains on diuretics, remains on bronchodilators, clinically better but still requiring high FiO2. Labs today were reviewed bicarb is 45 renal profile is normal sodium is 128 Seen today on 09/16/2024, basically about the same, remains on high flow nasal cannula at 12 L today, O2 sats is marginal, patient does not seem to be showing any significant improvement whatsoever. Clinically she seems to be comfortable, and not in distress. WBC is 15.3 hemoglobin 16.5 electrolytes are abnormal with low sodium low potassium low chloride elevated bicarb, BUN is 41 creatinine 0.72, electrolytes are being addressed by admitting physician. Seen today on 09/17/2024, she is now on 10 L high flow nasal cannula, remains marginal at best, patient is not symptomatic, but she desaturates easily down to the 80s when her FiO2 is below 10 L. Patient is comfortable, remains on diuretics, remains on bronchodilators, remains on steroids, not much of a change has been noticed over the last 1 week. WBC count is 20.47 hemoglobin 16.8 sodium is low at 128 potassium 2.9 bicarb is 48. Is 44 creatinine 0.75 Progress note dated September 18, 2024. This is an 78-year-old female seen today in room 351. The patient was admitted with a diagnosis of CHF. Currently she remains on 10 L high flow O2. Saturations are 90 to 91%. The patient is not receiving any IV fluids. Current laboratory data includes a white count of 19.1, hemoglobin 15.7, hematocrit 45.3, and a platelet count of 231,000. Sodium 129, potassium 3.8, chlorides 76, and CO2 49, BUN 46, and creatinine 0.68. Glucose 173. Calcium 9.6 with a magnesium of 1.8. CTA done on September 14 shows no evidence of pulmonary embolism, but improved subcutaneous edema. There is a small right pleural effusion, and a small to moderate size left pleural effusion. Progress note dated September 19, 2024. 78-year-old female seen again in room 351. She continues on high flow nasal O2 at 11 L/min. She is not receiving any IV fluids. Today we increased her Pulmicort up to 1 mg, twice a day, we also DC albuterol, and add DuoNebs, 4 times daily and as needed. Will check a chest x-ray, and will do an ultrasound of the left chest, to see if the effusion, is large enough to do thoracentesis. Current laboratory data includes a white count of 20.1, hemoglobin 15.3, hematocrit 43.0, and a platelet count of 209,000. Sodium 128, potassium 3.4, chloride 79, CO2 41, BUN 46, and creatinine 0.68. Glucose is 122. Calcium is 9.4. Progress note dated September 20, 2024. 78-year-old female seen again in room 351. The patient continues on high flow oxygen, at 11 L/min. The ultrasound of the chest showed a relatively small effusion, and there was lung tissue, within the effusion. We had ordered an echocardiogram, with bubble study, to rule out a shunt, but apparently cardiology and the access tech, thought that shunt was unlikely, given the patient's high right-sided pressures. White count is 19, hemoglobin 14.3, hematocrit 40.9, and platelet count was 224,000. Sodium 129, potassium 3.2, chlorides 79, CO2 38, anion gap 12, BUN 43, creatinine 0.69. Close was 156. Calcium 9.3. Chest x-ray suggest COPD, cardiomegaly, and mild pulmonary vascular congestion. There is a small left pleural effusion. Progress note dated September 21, 2024. 78-year-old female seen again in room 351. The patient continues on high flow nasal cannula 12 L. Her saturations are 95%. She has no specific complaints. She has not been improving at all, and hospice should be considered for this patient. Will leave that up to the primary service. Current laboratory data includes a sodium 129, potassium 4.1, chloride 86, CO2 39, BUN 37, and creatinine 0.71. Glucose is 110. Calcium was 9.6. Progress note dated September 22, 2024. 78-year-old female again seen in room 351. The patient continues on 12 L high flow nasal cannula. She is not receiving any IV fluids. The patient is a DO NOT RESUSCITATE patient. The nurse turns down the nasal cannula from 12 L to 10 L. I asked for a blood gas in 30 minutes. Clinically, the patient is doing about the same. Current laboratory data includes a white count of 16.9, hemoglobin 14.2, hematocrit 41.7, and a platelet count of 212,000. Sodium 129, potassium 3.8, chlorides 86, CO2 39, BUN 36, creatinine 0.67. Glucose is 99. Calcium is 9.2. Progress note dated September 23, 2024. 78-year-old female seen in room 351. Currently she is on 10 L high flow nasal O2. I did asked the nurse to continue to titrate down the FiO2, as long as her saturations were 88% or higher. Clinically, the patient feels well. She is sitting in bed. She is awake and alert. No distress. White count is 14.5, hemoglobin 15.3, hematocrit 45.4, and platelet counts normal. Sodium 131, potassium 3.9, chloride 95, CO2 39, BUN 38, and creatinine 0.79. Glucose is 107. Calcium 9.6. Objective - Vital Signs Vital signs: Vital Signs Temp 97.8 F 09/23/24 08:53 Pulse 66 09/23/24 08:53 Resp 20 09/23/24 09:26 BP 100/58 09/23/24 08:53 Pulse Ox 92 L 09/23/24 09:26 FiO2 70 09/09/24 08:20 Intake & Output 09/22/24 09/23/24 09/23/24 18:59 06:59 18:59 Intake Total 672 700 Output Total 450 1150 Balance 222 -450 Weight 55.5 kg Intake: Oral 672 700 Output: Urine 450 1150 Other: Voiding Method Bedside Commode Bedside Commode Bedside Commode # Voids 1 # Bowel Movements 1 1 - Exam No acute distress, oriented 3. Currently on 10 L high flow oxygen. HEENT examination is grossly unremarkable. Mucous membranes are moist. No oral lesions. Neck supple. Full range of motion. No adenopathy thyromegaly or neck vein distention. Cardiovascular examination reveals regular rhythm rate. S1-S2 normal. No S3 or S4. A soft systolic murmur is noted. Lungs reveal basilar crackles, and mild rhonchi. Breath sounds are diminished at the left lung base. Abdomen soft bowel sounds are heard. No masses or tenderness. Extremities are intact. No cyanosis or clubbing. Trace edema noted. Skin is without rash or lesion. Neurologic examination is brief but nonfocal. - Labs CBC & Chem 7: 09/23/24 05:30 09/23/24 05:30 Labs: Abnormal Lab Results - Last 24 Hours (Table) 09/22/24 09/22/24 09/22/24 Range/Units 11:35 16:28 20:02 WBC (4.50-10.00) 10*3/uL Hgb (12.0-15.0) g/dL Immature Gran # (0.00-0.04) 10*3/uL Neutrophils # (1.80-7.70) 10*3/uL Lymphocytes # (0.90-5.00) 10*3/uL Eosinophils # (0.04-0.35) 10*3/uL Sodium (137-145) mmol/L Chloride (98-107) mmol/L Carbon Dioxide (22-30) mmol/L BUN (7-17) mg/dL Glucose (74-99) mg/dL POC Glucose (mg/dL) 121 H 150 H 127 H (70-110) mg/dL 09/23/24 09/23/24 Range/Units 05:30 05:30 WBC 14.48 H (4.50-10.00) 10*3/uL Hgb 15.3 H (12.0-15.0) g/dL Immature Gran # 0.11 H (0.00-0.04) 10*3/uL Neutrophils # 13.03 H (1.80-7.70) 10*3/uL Lymphocytes # 0.51 L (0.90-5.00) 10*3/uL Eosinophils # 0.03 L (0.04-0.35) 10*3/uL Sodium 131 L (137-145) mmol/L Chloride 85 L (98-107) mmol/L Carbon Dioxide 39 H (22-30) mmol/L BUN 38 H (7-17) mg/dL Glucose 61 L (74-99) mg/dL POC Glucose (mg/dL) (70-110) mg/dL Microbiology - Last 24 Hours (Table) 09/19/24 12:45 Blood Culture - Preliminary Blood Assessment and Plan Assessment: Acute on chronic hypoxemic respiratory failure. Acute on chronic heart failure, with preserved ejection fraction. Chronic right-sided heart failure with severe pulmonary hypertension, and cor pulmonale. Moderate pericardial effusion. Severe pulmonary hypertension. Left pleural effusion,S/P thoracentesis, September 06, 2024. Fluid analysis suggested transudate. Trace pneumothorax, S/P thoracentesis. History of panic attacks and generalized anxiety disorder. History of gout. Urinary retention. Hyponatremia. Plan: Plan dated September 18, 2024. The patient continues on oxygen. We will attempt to titrate the FiO2 down. Labs, x-rays, and medications are reviewed. We will continue to follow make recommendations. The patient continues on diuretics and corticosteroids, as wel l as bronchodilators. Prognosis is guarded. Labs, x-rays, and medications are reviewed. Dictation was produced using Dragon dictation software. Please excuse any grammatical, word or spelling errors. Plan dated September 19, 2024. The patient is now receiving nasal O2, high-frequency, at 11 L/min. In addition, we DC the albuterol, in favor of DuoNebs, 4 times daily and as needed. Will recheck a chest x-ray, and do an ultrasound of left chest, with markings. We also increase Pulmicort to 1 mg. All labs, x-rays, and medications are reviewed. We will continue to follow make recommendations. Hoping to improve the patient's oxygenation, so that she can be discharged. She does have some m ild 1+ lower extremity edema. Dictation was produced using [employer] software. Please excuse any grammatical, word or spelling errors. Plan dated September 20, 2024. The patient is still on high flow O2 at 11 L. The patient's chest x-ray suggest some cardiomegaly, a small left-sided pleural effusion, and mild CHF. Ultrasound, showed a small left-sided pleural effusion, with lung tissue in termixed. Previous thoracentesis did result in a small pneumothorax. The fluid was transudative. Labs, x-rays, medications are reviewed. We will continue to follow. Prognosis is guarded. The patient is a DO NOT RESUSCITATE patient. She may have to consider something like palliative care, or hospice, if we cannot titrate down her oxygen requirements. Dictation was produced using [employer] software. Please excuse any grammatical, word or spelling errors. Plan dated September 21, 2024. The patient continues on high flow nasal O2 at 12 L. The patient's chest x-ray suggested some cardiomegaly, and a small left-sided pleural effusion. In addition, there was a suggestion of mild CHF. Ultrasound showed a small left- sided pleural effusion, with lung tissue intermixed. Previous thoracentesis did result in a small pneumothorax, and the fluid that was removed, was transudative. Labs, x-rays, medications are reviewed. The patient has made no significant progress. Palliative care consult or hospice consult should be considered. We will continue to follow. All labs, x-rays, and medications are reviewed. Dictation was produced using [employer] software. Please excuse any grammatical, word or spelling errors. Plan dated September 22, 2024. The patient is again seen today in room 351. She is on 12 L high flow nasal cannula. The nurse turns her down to 10 L. Will get a blood gas in 30 minutes. She is not receiving any IV fluids. She is a DO NOT RESUSCITATE patient. Labs, x-rays, and all medications are reviewed. Prognosis is very poor. Hospice consultation or palliative care consultation, should be considered. We will continue to follow. Dictation was produced using [employer] software. Please excuse any grammatical, word or spelling errors. Plan dated September 23, 2024. The patient appears to be doing a bit better. Her oxygen, is weaned down to 10 L high flow. Saturations are 94%. Labs, x-rays, and medications are reviewed. I did tell the nurses to continue to titrate down her FiO2, as long as her saturations are 88% or higher. We will continue to follow make recommendations along the way. Prognosis is guarded. The patient is a DO NOT RESUSCITATE patient. Dictation was produced using [employer] software. Please excuse any grammatical, word or spelling errors. Time with Patient: Less than 30
[2024-09-23 11:31] LABS: Glucose,Whole Blood 101 mg/dL (70-110)
--- NOTE | 2024-09-23 14:27 | P.PN ---
Subjective Progress Note Date: 09/23/24 Interval History: Patient is admitted for multifactorial respiratory failure secondary to CHF COPD with acute exacerbation still having hypoxia patient is on 10 L of oxygen patient has diminished air entry into bilateral lung gupta patient has alpha-1 antitrypsin deficiency leading to severe emphysema usually uses oxygen but patient is on high amount of oxygen at this time patient also has chronic right- sided heart failure with severe pulmonary hypertension and cor pulmonale. Patient had a CT of the chest as we are unable to wean her off oxygen CT did not show any pulmonary embolism but did show some pericardial effusion. 09/15/2024 Patient is evaluated today in the follow up. Sitting up in the chair. Continues with significant peripheral edema and pitting up to the thighs. Continues on oral lasix BID. Urine out 2.2 L so far today. IV lasix x 1 dose given also. Patient continues on 10 L of oxygen via nasal cannula. Labs today reveal sodium 128, potassium 3.4, CO2 45, BNP 18,000. Dr Allan in to see patient today for routine care and trimming of the nails on bilateral feet. 09/16/2024 Patient is evaluated again sitting up in the chair. Patients peripheral edema slightly improved. Over 4L of urine output yesterday. Remains on oral lasix 40 mg BID. Oxygen was increased to 12L hi flow. Labs today reveal white blood cell count 15.33, hgb 16.5, sodium 128, BUN 41, creatinine 0.72. Chloride 74, CO2 45. 09/17/2024 Patient is evaluated today sitting up in the chair. Patient continues with peripheral edema. Remains on 10 L of oxygen via nasal cannula. Not having any significant complaints. On fluid restriction 1200 CC. Labs today reveal white blood cell count of 20.47, hgb 16.8, sodium 128, potassium 3.4, CO2 48, chloride 73,. 09/18/2024 Patient is evaluated in follow-up today by the chair family at the bedside. She continues with significant lower extremity peripheral edema. She remains on times of oxygen via nasal cannula. She continues on Lasix 40 mg oral twice daily. White blood cell count today is 19.14, sodium level 129. BUN 46 creatinine 0.68. Heart rate in the 100s. 09/19/2024 Patient is eval in follow-up on the medical floor. Repeat chest x-ray reveals COPD and cardiomegaly suggest mild pulmonary vascular congestion. Similar to slightly improved small pleural effusion with adjacent atelectasis and/or consolidation. Subsequently patient went for a chest ultrasound which reveals a small to moderate 6.6 cm left pleural effusion pocket size. Was marked for possible thoracentesis. White blood cell count elevated at 20.11. Sodium level of 128 potassium 3.4, BUN of 46 creatinine 0.68. His CRP level was elevated at 5.7. Her viral panel repeat was negative for influenza RSV and COVID. ID was consulted for further management of the leukocytosis. 09/20/2024 Patient is evaluated today in follow up. States she feels tired today and has been dozing off. Chest ultrasound reveals small to moderate left pleural effusion. Continues on oral lasix 40 mg twice daily. Patient is on 12L hi flow cannula. White blood cell count 19.03, hgb 14.3, sodium 129, potassium 3.2, BUN 43, creatinine 0.69. Procalcitonin level 0.17. Pulmonology at this time not planning on thoracentesis. 09/21/2024 Patient is evaluated today in follow up. Patient sitting up in the chair. Remains on 12L of oxygen via nasal cannula. Breathing more labored today. Discussed hospice vs. palliative care. Patient is on oral diflucan. Followed closely by ID and pulmonology. 09/22/2024 Patient is evaluated today in follow up sitting up in the chair. Down to 10 L of oxygen. ABGs done today and per pulmonary OK to leave the patient on 10L. White blood cell count 16. Sodium 129. No acute complaints, states she is breathing better today. 09/23/24--patient was seen and examined today. Currently on 9 L oxygen. Afebrile, heart rate 80, respiratory rate 20, blood pressure 95/59, saturating 93% on 1 L. WBCs 14.48, trending down, hemoglobin 15.3, platelet 237. Sodium 131 potassium 3.9 chloride 85 CO2 39 BUN 38 creatinine 0.79 Cardiopulmonary and infectious disease consulted. Patient currently on Diflucan. Also on p.o. Lasix 40 mg twice daily. Prednisone 40 mg daily. Assessment and plan: -Acute on chronic hypoxic and hypercapnic respiratory failure secondary to COPD exacerbation right-sided heart failure pulmonary hypertension -Small to moderate left-sided pleural effusion patient is s/p thoracentesis of the left on September 06. At that time 800 mL of fluid was removed. -Hyponatremia secondary to excessive diuresis - Acute cor pulmonale - Leukocytosis likely steroid-induced - Congestive heart failure with preserved ejection fraction or diastolic dysfunction - Severe pulmonary hypertension - Trace pneumothorax with status post thoracentesis - Mild to moderate pericardial effusion - Urinary retention patient has a Alba catheter in place DVT prophylaxis: Subcutaneous Lovenox Continue oral lasix 40 mg BID and strict intake and output monitoring. Steroids have been decreased to oral prednisone 40 mg daily. Wean oxygen as tolerated. Cardiology and pulmonology following. Infectious disease was consulted. Patient has been started on oral diflucan. Pulmonology with no plans for thoracentesis at this time. Patient continues on oxygen via nasal cannula at 10L. Goals of care discussed with the patientpatient wanted to continue current treatment for now. Monitor vital signs and labs Labs and medication were reviewed. Continue same treatment. Further recommendations as per clinical course of the patient PHYSICAL EXAMINATION: GENERAL: The patient is A&O x3, chronically ill-appearing. HEENT: EOMI, Sclerae anicteric, Moist Mucous membranes Neck: Supple, Non tender, No JVD PULMONARY: Decreased breath sound bilaterally. CARDIOVASCULAR: S1, S2 present. No murmurs, rubs, or gallops. ABDOMEN: Soft, nontender, nondistended, normoactive bowel sounds. No guarding or rebound tenderness. MUSCULOSKELETAL: No edema, No cyanosis. No clubbing. Normal ROM. Intact peripheral pulses. NEUROLOGICAL: CN 2-12 grossly intact. No FND Skin: No Rash REVIEW OF SYSTEMS: CONSTITUTIONAL: No fever or chills. CARDIOVASCULAR: No chest pain, palpitations or syncope. PULMONARY: Complains of shortness of breathunchanged, cough and congestion. GASTROINTESTINAL: No nausea, vomiting, diarrhea, abdominal pain. : No Dysuria, urgency, frequency. Extremities: No edema. NEUROLOGICAL: No headaches, no weakness, or numbness Dictation was produced using [employer] dictation software. please excuse any grammatical, word or spelling errors. Objective - Vital Signs Vital signs: Vital Signs Temp 97.9 F 09/23/24 11:48 Pulse 80 09/23/24 13:03 Resp 20 09/23/24 11:48 BP 95/59 09/23/24 11:48 Pulse Ox 93 L 09/23/24 11:48 FiO2 70 09/09/24 08:20 Intake & Output 09/22/24 09/23/24 09/23/24 18:59 06:59 18:59 Intake Total 672 700 447 Output Total 450 1150 500 Balance 222 -450 -53 Weight 55.5 kg Intake: Oral 672 700 447 Output: Urine 450 1150 500 Other: Voiding Method Bedside Commode Bedside Commode Bedside Commode # Voids 1 1 # Bowel Movements 1 1 1 - Labs CBC & Chem 7: 09/23/24 05:30 09/23/24 05:30 Labs: Abnormal Lab Results - Last 24 Hours (Table) 09/22/24 09/22/24 09/23/24 Range/Units 16:28 20:02 05:30 WBC 14.48 H (4.50-10.00) 10*3/uL Hgb 15.3 H (12.0-15.0) g/dL Immature Gran # 0.11 H (0.00-0.04) 10*3/uL Neutrophils # 13.03 H (1.80-7.70) 10*3/uL Lymphocytes # 0.51 L (0.90-5.00) 10*3/uL Eosinophils # 0.03 L (0.04-0.35) 10*3/uL Sodium (137-145) mmol/L Chloride (98-107) mmol/L Carbon Dioxide (22-30) mmol/L BUN (7-17) mg/dL Glucose (74-99) mg/dL POC Glucose (mg/dL) 150 H 127 H (70-110) mg/dL 09/23/24 Range/Units 05:30 WBC (4.50-10.00) 10*3/uL Hgb (12.0-15.0) g/dL Immature Gran # (0.00-0.04) 10*3/uL Neutrophils # (1.80-7.70) 10*3/uL Lymphocytes # (0.90-5.00) 10*3/uL Eosinophils # (0.04-0.35) 10*3/uL Sodium 131 L (137-145) mmol/L Chloride 85 L (98-107) mmol/L Carbon Dioxide 39 H (22-30) mmol/L BUN 38 H (7-17) mg/dL Glucose 61 L (74-99) mg/dL POC Glucose (mg/dL) (70-110) mg/dL Microbiology - Last 24 Hours (Table) 09/19/24 12:45 Blood Culture - Preliminary Blood
--- NOTE | 2024-09-23 14:56 | P.PN ---
Subjective Progress Note Date: 09/23/24 Principal diagnosis: Reason for follow-up is leukocytosis Patient is a 78-year-old female with a past medical history significant for COPD heart failure gout anxiety panic disorder hypertension presenting to the hospital about 3 weeks before initial evaluation for eval uation of difficulty in breathing she did have elevated white count probably this consultation On today's visit that is 09/23/2024, patient did not have any fever and denies any chills, patient is breathing slightly comfortably and is down to 9020s current oxygen no chest pain no worsening cough no abdominal pain no diarrhea. Patient white count is not 14.48, creatinine 0.79 blood culture has been negative Objective - Vital Signs Vital signs: Vital Signs Temp 97.9 F 09/23/24 11:48 Pulse 80 09/23/24 13:03 Resp 20 09/23/24 11:48 BP 95/59 09/23/24 11:48 Pulse Ox 93 L 09/23/24 11:48 FiO2 70 09/09/24 08:20 Intake & Output 09/22/24 09/23/24 09/23/24 18:59 06:59 18:59 Intake Total 672 700 237 Output Total 450 1150 500 Balance 222 -450 -263 Weight 55.5 kg Intake: Oral 672 700 237 Output: Urine 450 1150 500 Other: Voiding Method Bedside Commode Bedside Commode Bedside Commode # Voids 1 1 # Bowel Movements 1 1 1 - Exam GENERAL DESCRIPTION: An elderly female up in chair in no distress RESPIRATORY SYSTEM: Unlabored breathing , decreased breath sounds at bases HEART: S1 S2 regular rate and rhythm , ABDOMEN: Soft , no tenderness EXTREMITIES: No edema feet - Labs CBC & Chem 7: 09/23/24 05:30 09/23/24 05:30 Labs: Abnormal Lab Results - Last 24 Hours (Table) 09/22/24 09/22/24 09/23/24 Range/Units 16:28 20:02 05:30 WBC 14.48 H (4.50-10.00) 10*3/uL Hgb 15.3 H (12.0-15.0) g/dL Immature Gran # 0.11 H (0.00-0.04) 10*3/uL Neutrophils # 13.03 H (1.80-7.70) 10*3/uL Lymphocytes # 0.51 L (0.90-5.00) 10*3/uL Eosinophils # 0.03 L (0.04-0.35) 10*3/uL Sodium (137-145) mmol/L Chloride (98-107) mmol/L Carbon Dioxide (22-30) mmol/L BUN (7-17) mg/dL Glucose (74-99) mg/dL POC Glucose (mg/dL) 150 H 127 H (70-110) mg/dL 09/23/24 Range/Units 05:30 WBC (4.50-10.00) 10*3/uL Hgb (12.0-15.0) g/dL Immature Gran # (0.00-0.04) 10*3/uL Neutrophils # (1.80-7.70) 10*3/uL Lymphocytes # (0.90-5.00) 10*3/uL Eosinophils # (0.04-0.35) 10*3/uL Sodium 131 L (137-145) mmol/L Chloride 85 L (98-107) mmol/L Carbon Dioxide 39 H (22-30) mmol/L BUN 38 H (7-17) mg/dL Glucose 61 L (74-99) mg/dL POC Glucose (mg/dL) (70-110) mg/dL Microbiology - Last 24 Hours (Table) 09/19/24 12:45 Blood Culture - Preliminary Blood Assessment and Plan (1) Leukocytosis Current Visit: Yes Status: Acute Code(s): D72.829 - ELEVATED WHITE BLOOD CELL COUNT, UNSPECIFIED SNOMED Code(s): 737099019 (2) Penicillin allergy Current Visit: Yes Status: Acute Code(s): Z88.0 - ALLERGY STATUS TO PENICILLIN SNOMED Code(s): 86289627 Plan: 1patient with elevated white count over the last 1 week and this patient has been in the hospital for almost 3 weeks before this initial consultation and has been treated for CHF exacerbation did require thoracocentesis on 09/06/2024 and those culture have been negative patient did not have any fever during this hospital stay does not look toxic has been exposed to steroids questionable steroid effect versus oropharyngeal candidiasis 2-blood culture have been negative so far 3. Patient white count is down to 14,000, patient to continue with the Diflucan and monitor clinical course closely Dictation was produced using [employer] dictation software. please excuse any grammatical, word or spelling errors. Time with Patient: Less than 30
[2024-09-23 16:23] LABS: Glucose,Whole Blood 122 mg/dL (70-110)
[2024-09-23 20:04] LABS: Glucose,Whole Blood 140 mg/dL (70-110)
[2024-09-23] MEDS: HYDROcodone/APAP 5-325MG 1 EACH TAB PO PRN (23:47)
[2024-09-24 06:03] LABS: Glucose,Whole Blood 98 mg/dL (70-110)
--- NOTE | 2024-09-24 09:25 | P.PN ---
Subjective Progress Note Date: 09/24/24 Principal diagnosis: Congestive heart failure. This is an 78-year-old female patient with no prior cardiac history but medical history significant for chronic hypoxic respiratory failure secondary to COPD and alpha 1 antitrypsin deficiency presented to the hospital with progressive exertional dyspnea associated with progressive bilateral lower extremity edema for the last few days. No symptoms of chest pain or chest discomfort but she felt she was experiencing severe congestions with no fever and no chills and no cough and no sputum production. No other cardiovascular symptoms of dizziness or lightheadedness or any feeling of heart racing or fluttering or presyncope or syncope. She developed severe bilateral lower extremities edema. When she presented to the hospital she was hypoxic requiring high flow oxygen. Normally she is on 2 L of oxygen continuously. Definitely her oxygen requirement has increased within the last few days and she has been doing pulse oximetry at home and noticed that her oxygen saturation has been low. She underwent further evaluation including EKG showing RBBB. NT proBNP came to be elevated at 5000. First set of troponin is unremarkable with chest x-ray showed finding consistent with pulmonary vascular congestions and left pleural effusion but CT scan of the chest showed no evidence of PE. Venous duplex study showed no evidence of DVT as well. The physical examination is remarkable for regular rhythm with a systolic murmur at the right and left upper sternal border with diminished breathing sounds bilaterally and bilateral rhonchi and severe bilateral lower extremities pitting edema. I initially saw this patient in my office. She was hypoxic and she was in significant volume overload with extensive lower extremit y edema. I directed this patient to the Emergency Department. After being in the hospital for around 3 days, the patient remained hypoxic and the patient remains on Airvo at 45 L with an FiO2 of 65%. Based on that, a pulmonary consultation was requested. I reviewed the CT of the chest that was done on this patient. The patient has extensive emphysematous changes bilaterally and the patient also has a moderate-sized left-sided pleural effusion. No airspace disease. No consolidation. No pneumonias. There is also a new moderate to small size pericardial effusion. Echocardiogram was completed on 08/31/2024 and the patient was found to have a preserved LV function with an EF of around 65% and the patient also had severe RV dilatation, reduced RV global systolic function and severe pulmonary hypertension along with moderate pericardial effusion without signs of any tamponade. The patient had severe tricuspid regurgitation. Estimated right ventricular systolic pressure was 94. For now, the patient is on Lasix 40 mg IV every 12 hours. Monitoring her fluid balance has been essentially negative and the patient has been -2.2 L over the past 24 hours. Most recent electrolytes show a sodium level of 132, potassium of 3.6, BUN 31 with a creatinine 0.7. The white cell count is at 8.8 with a hemoglobin 17.3. She is currently on Lasix 40 mg IV every 12 hours. She is also on Ald actone 25 mg p.o. daily. She remains on IV heparin. The procalcitonin level was 0.08. Troponins were nonelevated. On 09/05/2024, the patient is being seen for a follow-up. The patient is calm and comfortable. The patient is currently on Airvo 45 L with an FiO2 of 65%. She remains on Bumex 1 mg p.o. twice daily and Aldactone 25 mg p.o. daily. She has been diuresing well over the past several days and the patient has been negative fluid balance of 1.1 L over the past 24 hours. No significant shortness of breath at rest. Continues to have significant amount of edema lower extremities bilaterally. The white cell count is at 8.4 with a hemoglobin 17.4 and a platelet count of 167. BUN is 30 with a creatinine of of 0.7. Sodium level is at 132 and a potassium level is at 3.5. Viral screen was negative. Chest x-ray from yesterday was consistent with COPD with chronic emphysematous changes and cardiomegaly and small left-sided pleural effusion. The patient also was noted to have a moderate-sized pericardial effusion without signs of tamponade. The patient was taken off the IV Lasix and the patient was started on Bumex in combination with Aldactone. 09/06/2024, the patient remains on Airvo 45 L with FiO2 of 50%. The fluid balance has been +125 cc over the past 24 hours. Based on that, making recommendations to start the patient on Lasix drip at 5 mg an hour. She continues to have significant amount of edema lower extremities bilaterally. Further workup was ordered by the medical group including a Doppler of lower extremity that showed no evidence of any DVT and CTA of the chest that showed no evidence of any pulmonary embolism. There was extensive bilateral severe emphysematous changes and a chronic left-sided pleural effusion. Based on that, I performed a bedside thoracentesis this patient and I drained approximately 800 cc of pleural fluid from the left lung. The patient tolerated the procedure well without any complications. The fluid will be sent for analysis. The white cell count is 8.4, hemoglobin is 17.4 and platelet count of 167. BUN is 30 with a creatinine of 0.7 and sodium is at 132 and a potassium level is at 3.5. 09/07/2024, the patient is being seen for a follow-up. The patient remains on Airvo at 45 L and FiO2 of 65%. Pulse ox is in the order of 92%. Remains dependent on high flow oxygen. She continues to diurese with Lasix drip at 5 mg an hour. She is postthoracentesis and a total of 800 cc of pleural fluid was aspirated from the left lung. The pleural fluid was a transudate. The chemistry that showed low LDH and low protein. The white cell count was also low with a lymphocytic predominance. The patient has no specific complaints. The white cell count is at 5.6, hemoglobin is 16.6 and a platelet count is at 153. Sodium is at 130, BUN 29 with a creatinine of 0.7. K level is at 3.4. Remains on DuoNeb updrafts. Will start IV Solu-Medrol. 09/08/2024, the patient is being seen for a follow-up. Remains on Airvo 40 L and FiO2 of 65%. Currently on Lasix drip at 5 mg an hour. Also on Zaroxolyn 5 mg p.o. twice a day.. She is also on a combination of bronchodilators and IV Solu- Medrol. Unfortunately, no significant improvement in oxygenation over the past 24 hours and will continue to monitor. The white cell count of 9.5, hemoglobin is at 15.6 and a platelet count of 156. Sodium levels at 129, potassium level 3.3. BUN is 34 with a creatinine of 0.7. Procalcitonin level is at 0.08. Cortisol level is at 32. Pleural fluid aspirated from the left lung was consistent with a transudate. On 09/09/2024, the patient was taken off the Airvo and the patient was placed on 12 L of oxygen by nasal cannula. Current pulse ox is around 88%. She is calm and comfortable. Denies having any new complaints. I am not sure if the patient is having accurate input output measurement. Nevertheless, based on the fluid balance, she is +500 cc over the past 24 hours. She is off the Lasix drip and the patient is currently receiving Lasix 40 mg IV every 12 hours. She is also on Zaroxolyn 5 mg p.o. twice a day. He is also on Aldactone 25 mg p.o. daily. Doing well. Afebrile. Hemodynamically stable. Blood work from today shows a white cell count of 10.3, hemoglobin of 15 and a platelet count of 176. BUN 36 with a creatinine of 0.7. Sodium level is at 128. No other significant events otherwise for now. 09/10/2024, the patient is doing well on 12 L of oxygen by nasal cannula. Pulse ox is ranging between 88 to 92%. No specific complaints. She still diuresing with a combination of Zaroxolyn and IV Lasix. There is some residual lower extremity edema. The white cell count of 8.7 with a hemoglobin of 6.4 and a platelet count of 161. Patient also has a stable level of 127, potassium level of 3.4,, chloride 86, BUN is 40 with a creatinine of 0.6. Patient was seen today on 09/11/2024, remains on the cardiac floor, remains on 12 L high flow nasal cannula, O2 saturation is 92%. Patient has been diuresing wit different diuretics including Zaroxolyn and Lasix, does not seem to be in distress Patient had thoracentesis done by Dr. San about 5 days ago, cytology was negative for malignancy, fluid was mostly transudative in nature. WBC is 9.3 hemoglobin 16.4 electrolytes are relatively normal except of sodium 128, BUN is 39 creatinine 0.76 hemodynamically the patient is stable, clinically she feels better, breathing easier, still being followed by many consultants including cardiology, patient is responding to diuretics but nonetheless she still requiring significant amount of FiO2. Patient was seen today on 09/12/2024, patient is feeling better today, less shortness of breath, no chest pain, no chest pressure, no tightness, patient remains on diuretics, she is on oral Lasix, cardiology is handling diuretics patient had a follow-up chest x-ray with small recurrent left pleural effusion noted, some atelectasis, patient is still requiring relatively high FiO2, on 12 L nasal cannula. No plans to perform thoracentesis on this patient since the size of the fluid is #1 way too small, and patient had previous thoracentesis the fluid was transudative in nature. CT angiogram of the chest on admission showed no evidence of pulmonary embolism on this patient. Seen today on09/13/24, patient is clinically feeling better, however she remains on high FiO2 at 12 L, O2 sat show is marginal. Chest x-ray showed small left pleural effusion, previous CT angiogram of the chest to rule out pulmonary embolism patient remains on diuretics, she does have pulmonary hypertension, overall not much of a change in the last few days. Basically about the same. However she could not be discharged home on 12 L nasal cannula and we are continuing diuretics. Also on bronchodilators Patient was seen today , clinically improving but her FiO2 requirement remains high on 12 L high flow nasal cannula titrated down to 9 L and maintain her O2 saturation in the low 90s. Patient has very minimal small left pleural effusion to explain her profound hypoxia, hence today I recommended a CT angiogram on this patient. And this is pending. My index of suspicion for pulmonary embolism is rather low but considering her ongoing hypoxia it is best to be safe and address that accordingly. She did have CT angiogram on her initial presentation and that was negative for PE. WBC count 15.17 hemoglobin is 18.2 electrolytes are normal renal profile is relatively normal bicarb is 40. Patient was seen today on 09/15/2024, patient remains about the same, clinically better but still requiring high O2 flow, she is now on 10 L high flow nasal cannula, CT angiogram of the chest showed no evidence of pulmonary embolism, the effusion is very small, and clearly not contributing to her hypoxia much. Patient remains on diuretics, remains on bronchodilators, clinically better but still requiring high FiO2. Labs today were reviewed bicarb is 45 renal profile is normal sodium is 128 Seen today on 09/16/2024, basically about the same, remains on high flow nasal cannula at 12 L today, O2 sats is marginal, patient does not seem to be showing any significant improvement whatsoever. Clinically she seems to be comfortable, and not in distress. WBC is 15.3 hemoglobin 16.5 electrolytes are abnormal with low sodium low potassium low chloride elevated bicarb, BUN is 41 creatinine 0.72, electrolytes are being addressed by admitting physician. Seen today on 09/17/2024, she is now on 10 L high flow nasal cannula, remains marginal at best, patient is not symptomatic, but she desaturates easily down to the 80s when her FiO2 is below 10 L. Patient is comfortable, remains on diuretics, remains on bronchodilators, remains on steroids, not much of a change has been noticed over the last 1 week. WBC count is 20.47 hemoglobin 16.8 sodium is low at 128 potassium 2.9 bicarb is 48. Is 44 creatinine 0.75 Progress note dated September 18, 2024. This is an 78-year-old female seen today in room 351. The patient was admitted with a diagnosis of CHF. Currently she remains on 10 L high flow O2. Saturations are 90 to 91%. The patient is not receiving any IV fluids. Current laboratory data includes a white count of 19.1, hemoglobin 15.7, hematocrit 45.3, and a platelet count of 231,000. Sodium 129, potassium 3.8, chlorides 76, and CO2 49, BUN 46, and creatinine 0.68. Glucose 173. Calcium 9.6 with a magnesium of 1.8. CTA done on September 14 shows no evidence of pulmonary embolism, but improved subcutaneous edema. There is a small right pleural effusion, and a small to moderate size left pleural effusion. Progress note dated September 19, 2024. 78-year-old female seen again in room 351. She continues on high flow nasal O2 at 11 L/min. She is not receiving any IV fluids. Today we increased her Pulmicort up to 1 mg, twice a day, we also DC albuterol, and add DuoNebs, 4 times daily and as needed. Will check a chest x-ray, and will do an ultrasound of the left chest, to see if the effusion, is large enough to do thoracentesis. Current laboratory data includes a white count of 20.1, hemoglobin 15.3, hematocrit 43.0, and a platelet count of 209,000. Sodium 128, potassium 3.4, chloride 79, CO2 41, BUN 46, and creatinine 0.68. Glucose is 122. Calcium is 9.4. Progress note dated September 20, 2024. 78-year-old female seen again in room 351. The patient continues on high flow oxygen, at 11 L/min. The ultrasound of the chest showed a relatively small effusion, and there was lung tissue, within the effusion. We had ordered an echocardiogram, with bubble study, to rule out a shunt, but apparently cardiology and the pc technician, thought that shunt was unlikely, given the patient's high right-sided pressures. White count is 19, hemoglobin 14.3, hematocrit 40.9, and platelet count was 224,000. Sodium 129, potassium 3.2, chlorides 79, CO2 38, anion gap 12, BUN 43, creatinine 0.69. Close was 156. Calcium 9.3. Chest x-ray suggest COPD, cardiomegaly, and mild pulmonary vascular congestion. There is a small left pleural effusion. Progress note dated September 21, 2024. 78-year-old female seen again in room 351. The patient continues on high flow nasal cannula 12 L. Her saturations are 95%. She has no specific complaints. She has not been improving at all, and hospice should be considered for this patient. Will leave that up to the primary service. Current laboratory data includes a sodium 129, potassium 4.1, chloride 86, CO2 39, BUN 37, and creatinine 0.71. Glucose is 110. Calcium was 9.6. Progress note dated September 22, 2024. 78-year-old female again seen in room 351. The patient continues on 12 L high flow nasal cannula. She is not receiving any IV fluids. The patient is a DO NOT RESUSCITATE patient. The nurse turns down the nasal cannula from 12 L to 10 L. I asked for a blood gas in 30 minutes. Clinically, the patient is doing about the same. Current laboratory data includes a white count of 16.9, hemoglobin 14.2, hematocrit 41.7, and a platelet count of 212,000. Sodium 129, potassium 3.8, chlorides 86, CO2 39, BUN 36, creatinine 0.67. Glucose is 99. Calcium is 9.2. Progress note dated September 23, 2024. 78-year-old female seen in room 351. Currently she is on 10 L high flow nasal O2. I did asked the nurse to continue to titrate down the FiO2, as long as her saturations were 88% or higher. Clinically, the patient feels well. She is sitting in bed. She is awake and alert. No distress. White count is 14.5, hemoglobin 15.3, hematocrit 45.4, and platelet counts normal. Sodium 131, potassium 3.9, chloride 95, CO2 39, BUN 38, and creatinine 0.79. Glucose is 107. Calcium 9.6. Progress note dated September 24, 2024. 78-year-old female seen in room 351. The patient has been weaned down to 8 L nasal cannula. Clinically, the patient is feeling much better. The patient denies any chest pain or chest discomfort. She states that her breathing is improved. Laboratory data today includes a glucose of 98. Objective - Vital Signs Vital signs: Vital Signs Temp 98.1 F 09/23/24 20:00 Pulse 80 09/24/24 08:14 Resp 16 09/24/24 04:00 BP 106/66 09/24/24 04:00 Pulse Ox 92 L 09/24/24 07:46 FiO2 70 09/09/24 08:20 Intake & Output 09/23/24 09/24/24 09/24/24 18:59 06:59 18:59 Intake Total 927 120 Output Total 1100 1075 Balance -173 -955 Weight 55.2 kg Intake: Oral 927 120 Output: Urine 1100 1075 Other: Voiding Method Bedside Commode Bedside Commode # Voids 1 1 # Bowel Movements 1 - Exam No acute distress, oriented 3. Currently on 8 L high flow oxygen. HEENT examination is grossly unremarkable. Mucous membranes are moist. No oral lesions. Neck supple. Full range of motion. No adenopathy thyromegaly or neck vein distention. Cardiovascular examination reveals regular rhythm rate. S1-S2 normal. No S3 or S4. A soft systolic murmur is noted. Lungs reveal basilar crackles, and mild rhonchi. Breath sounds are diminished at the left lung base. Abdomen soft bowel sounds are heard. No masses or tenderness. Extremities are intact. No cyanosis or clubbing. Trace edema noted. Skin is without rash or lesion. Neurologic examination is brief but nonfocal. - Labs CBC & Chem 7: 09/23/24 05:30 09/23/24 05:30 Labs: Abnormal Lab Results - Last 24 Hours (Table) 09/23/24 09/23/24 Range/Units 16:22 20:03 POC Glucose (mg/dL) 122 H 140 H (70-110) mg/dL Assessment and Plan Assessment: Acute on chronic hypoxemic respiratory failure. Acute on chronic heart failure, with preserved ejection fraction. Chronic right-sided heart failure with severe pulmonary hypertension, and cor pulmonale. Moderate pericardial effusion. Severe pulmonary hypertension. Left pleural effusion,S/P thoracentesis, September 06, 2024. Fluid analysis suggested transudate. Trace pneumothorax, S/P thoracentesis. History of panic attacks and generalized anxiety disorder. History of gout. Urinary retention. Hyponatremia. Plan: Plan dated September 18, 2024. The patient continues on oxygen. We will attempt to titrate the FiO2 down. Labs, x-rays, and medications are reviewed. We will continue to follow make recommendations. The patient continues on diuretics and corticosteroids, as well as bronchodilators. Prognosis is guarded. Labs, x-rays, and medications are reviewed. Dictation was produced using [employer] software. Please excuse any grammatical, word or spelling errors. Plan dated September 19, 2024. The patient is now receiving nasal O2, high-frequency, at 11 L/min. In addition, we DC the albuterol, in favor of DuoNebs, 4 times daily and as needed. Will recheck a chest x-ray, and do an ultrasound of left chest, with markings. We also increase Pulmicort to 1 mg. All labs, x-rays, and medications are reviewed. We will continue to follow make recommendations. Hoping to improve the patient's oxygenation, so that she can be discharged. She does have some mild 1+ lower extremity edema. Dictation was produced using [employer] software. Please excuse any grammatical, word or spelling errors. Plan dated September 20, 2024. The patient is still on high flow O2 at 11 L. The patient's chest x-ray suggest some cardiomegaly, a small left-sided pleural effusion, and mild CHF. Ultrasound, showed a small left-sided pleural effusion, with lung tissue intermixed. Previous thoracentesis did result in a small pneumothorax. The fluid was transudative. Labs, x-rays, medications are reviewed. We will continue to follow. Prognosis is guarded. The patient is a DO NOT RESUSCITATE patient. She may have to consider something like palliative care, or hospice, if we cannot titrate down her oxygen requirements. Dictation was produced using [employer] software. Please excuse any grammatical, word or spelling errors. Plan dated September 21, 2024. The patient continues on high flow nasal O2 at 12 L. The patient's chest x-ray suggested some cardiomegaly, and a small left-sided pleural effusion. In addition, there was a suggestion of mild CHF. Ultrasound showed a small left-sided pleural effusion, with lung tissue intermixed. Previous thoracentesis did result in a small pneumothorax, and the fluid that was removed, was transudative. Labs, x-rays, medications are reviewed. The patient has made no significant progress. Palliative care consult or hospice consult should be considered. We will continue to follow. All labs, x-rays, and medications are reviewed. Dictation was produced using [employer] software. Please excuse any grammatical, word or spelling errors. Plan dated September 22, 2024. The patient is again seen today in room 351. She is on 12 L high flow nasal cannula. The nurse turns her down to 10 L. Will get a blood gas in 30 minutes. She is not receiving any IV fluids. She is a DO NOT RESUSCITATE patient. Labs, x-rays, and all medications are reviewed. Prognosis is very poor. Hospice consultation or palliative care consultation, should be considered. We will continue to follow. Dictation was produced using [employer] are. Please excuse any grammatical, word or spelling errors. Plan dated September 23, 2024. The patient appears to be doing a bit better. Her oxygen, is weaned down to 10 L high flow. Saturations are 94%. Labs, x-rays, and medications are reviewed. I did tell the nurses to continue to titrate down her FiO2, as long as her saturations are 88% or higher. We will continue to follow make recommendations along the way. Prognosis is guarded. The patient is a DO NOT RESUSCITATE patient. Dictation was produced using [employer] software. Please excuse any grammatical, word or spelling errors. Plan dated September 24, 2024. Earlier this week, the patient was on 15 L high flow nasal cannula, weaned down to 12 L, then 10 L, and now down to a liter high flow nasal cannula. The patient is a DO NOT RESUSCITATE patient. No new labs today. We will continue to follow. Labs, x-rays, and all medications are reviewed. We will continue to make recommendations where appropriate. Prognosis is guarded. Dictation was produced using [employer] software. Please excuse any grammatical, word or spelling errors. Time with Patient: Less than 30
[2024-09-24 11:24] LABS: Glucose,Whole Blood 85 mg/dL (70-110)
--- NOTE | 2024-09-24 13:15 | P.PN ---
Subjective Interval History: Patient is admitted for multifactorial respiratory failure secondary to CHF COPD with acute exacerbation still having hypoxia patient is on 10 L of oxygen patient has diminished air entry into bilateral lung gupta patient has alpha-1 antitrypsin deficiency leading to severe emphysema usually uses oxygen but patient is on high amount of oxygen at this time patient also has chronic right- sided heart failure with severe pulmonary hypertension and cor pulmonale. Patient had a CT of the chest as we are unable to wean her off oxygen CT did not show any pulmonary embolism but did show some pericardial effusion. 09/15/2024 Patient is evaluated today in the follow up. Sitting up in the chair. Continues with significant peripheral edema and pitting up to the thighs. Continues on oral lasix BID. Urine out 2.2 L so far today. IV lasix x 1 dose given also. Patient continues on 10 L of oxygen via nasal cannula. Labs today reveal sodium 128, potassium 3.4, CO2 45, BNP 18,000. Dr Allan in to see patient today for routine care and trimming of the nails on bilateral feet. 09/16/2024 Patient is evaluated again sitting up in the chair. Patients peripheral edema slightly improved. Over 4L of urine output yesterday. Remains on oral lasix 40 mg BID. Oxygen was increased to 12L hi flow. Labs today reveal white blood cell count 15.33, hgb 16.5, sodium 128, BUN 41, creatinine 0.72. Chloride 74, CO2 45. 09/17/2024 Patient is evaluated today sitting up in the chair. Patient continues with peripheral edema. Remains on 10 L of oxygen via nasal cannula. Not having any significant complaints. On fluid restriction 1200 CC. Labs today reveal white blood cell count of 20.47, hgb 16.8, sodium 128, potassium 3.4, CO2 48, chloride 73,. 09/18/2024 Patient is evaluated in follow-up today by the chair family at the bedside. She continues with significant lower extremity peripheral edema. She remains on times of oxygen via nasal cannula. She continues on Lasix 40 mg oral twice daily. White blood cell count today is 19.14, sodium level 129. BUN 46 creatinine 0.68. Heart rate in the 100s. 09/19/2024 Patient is eval in follow-up on the medical floor. Repeat chest x-ray reveals COPD and cardiomegaly suggest mild pulmonary vascular congestion. Similar to slightly improved small pleural effusion with adjacent atelectasis and/or consolidation. Subsequently patient went for a chest ultrasound which reveals a small to moderate 6.6 cm left pleural effusion pocket size. Was marked for possible thoracentesis. White blood cell count elevated at 20.11. Sodium level of 128 potassium 3.4, BUN of 46 creatinine 0.68. His CRP level was elevated at 5.7. Her viral panel repeat was negative for influenza RSV and COVID. ID was consulted for further management of the leukocytosis. 09/20/2024 Patient is evaluated today in follow up. States she feels tired today and has been dozing off. Chest ultrasound reveals small to moderate left pleural effusion. Continues on oral lasix 40 mg twice daily. Patient is on 12L hi flow cannula. White blood cell count 19.03, hgb 14.3, sodium 129, potassium 3.2, BUN 43, creatinine 0.69. Procalcitonin level 0.17. Pulmonology at this time not planning on thoracentesis. 09/21/2024 Patient is evaluated today in follow up. Patient sitting up in the chair. Remains on 12L of oxygen via nasal cannula. Breathing more labored today. Discussed hospice vs. palliative care. Patient is on oral diflucan. Followed closely by ID and pulmonology. 09/22/2024 Patient is evaluated today in follow up sitting up in the chair. Down to 10 L of oxygen. ABGs done today and per pulmonary OK to leave the patient on 10L. White blood cell count 16. Sodium 129. No acute complaints, states she is breathing better today. 09/23/24--patient was seen and examined today. Currently on 9 L oxygen. Af ebrile, heart rate 80, respiratory rate 20, blood pressure 95/59, saturating 93% on 1 L. WBCs 14.48, trending down, hemoglobin 15.3, platelet 237. Sodium 131 potassium 3.9 chloride 85 CO2 39 BUN 38 creatinine 0.79 Cardiopulmonary and infectious disease consulted. Patient currently on Diflucan. Also on p.o. Lasix 40 mg twice daily. Prednisone 40 mg daily. 09/24/24-- Patient was seen and examined today. Currently down to 7 L oxygen. Afebrile, heart rate 83, respiratory rate 16. No new labs today. Pulmonary following. Patient reported that she is feeling better. Breathing is better. Assessment and plan: -Acute on chronic hypoxic and hypercapnic respiratory failure secondary to COPD exacerbation right-sided heart failure pulmonary hypertension -Small to moderate left-sided pleural effusion patient is s/p thoracentesis of the left on September 06. At that time 800 mL of fluid was removed. -Hyponatremia secondary to excessive diuresis - Acute cor pulmonale - Leukocytosis likely steroid-induced - Congestive heart failure with preserved ejection fraction or diastolic dysfunction - Severe pulmonary hypertension - Trace pneumothorax with status post thoracentesis - Mild to moderate pericardial effusion - Urinary retention patient has a Alba catheter in place DVT prophylaxis: Subcutaneous Lovenox Continue oral lasix 40 mg BID and strict intake and output monitoring. Steroids have been decreased to oral prednisone 40 mg daily. Wean oxygen as tolerated. Cardiology and pulmonology following. Infectious disease was consulted. Patient has been started on oral diflucan. Pulmonology with no plans for thoracentesis at this time. Patient continues on oxygen via nasal cannula at 10L. Goals of care discussed with the patientpatient wanted to continue current treatment for now. Monitor vital signs and labs Labs and medication were reviewed. Continue same treatment. Further recommendations as per clinical course of the patient PHYSICAL EXAMINATION: GENERAL: The patient is A&O x3, chronically ill-appearing. HEENT: EOMI, Sclerae anicteric, Moist Mucous membranes Neck: Supple, Non tender, No JVD PULMONARY: Decreased breath sound bilaterally. CARDIOVASCULAR: S1, S2 present. No murmurs, rubs, or gallops. ABDOMEN: Soft, nontender, nondistended, normoactive bowel sounds. No guarding or rebound tenderness. MUSCULOSKELETAL: No edema, No cyanosis. No clubbing. Normal ROM. Intact peripheral pulses. NEUROLOGICAL: CN 2-12 grossly intact. No FND Skin: No Rash REVIEW OF SYSTEMS: CONSTITUTIONAL: No fever or chills. CARDIOVASCULAR: No chest pain, palpitations or syncope. PULMONARY: Complains of shortness of breathunchanged, cough and congestion. GASTROINTESTINAL: No nausea, vomiting, diarrhea, abdominal pain. : No Dysuria, urgency, frequency. Extremities: No edema. NEUROLOGICAL: No headaches, no weakness, or numbness Dictation was produced using [employer] dictation software. please excuse any grammatical, word or spelling errors. Objective - Vital Signs Vital signs: Vital Signs Temp 98.1 F 09/24/24 09:29 Pulse 83 09/24/24 12:07 Resp 16 09/24/24 12:10 BP 108/70 09/24/24 12:07 Pulse Ox 94 L 09/24/24 12:10 FiO2 70 09/09/24 08:20 Intake & Output 09/23/24 09/24/24 09/24/24 18:59 06:59 18:59 Intake Total 927 120 240 Output Total 1100 1075 Balance -173 -955 240 Weight 55.2 kg Intake: Oral 927 120 240 Output: Urine 1100 1075 Other: Voiding Method Bedside Commode Bedside Commode Bedside Commode # Voids 1 1 # Bowel Movements 1 - Labs CBC & Chem 7: 09/23/24 05:30 09/23/24 05:30 Labs: Abnormal Lab Results - Last 24 Hours (Table) 09/23/24 09/23/24 Range/Units 16:22 20:03 POC Glucose (mg/dL) 122 H 140 H (70-110) mg/dL
--- NOTE | 2024-09-24 14:51 | P.PN ---
Subjective Progress Note Date: 09/24/24 Principal diagnosis: Reason for follow-up is leukocytosis Patient is a 78-year-old female with a past medical history significant for COPD heart failure gout anxiety panic disorder hypertension presenting to the hospital about 3 weeks before initial evaluation for eval uation of difficulty in breathing she did have elevated white count probably this consultation On today's visit that is 09/24/2024, Patient is afebrile patient is down to 7 L high flow nasal cannula oxygen and mentioned breathing slightly comfortably denies any chest pain occasional cough no nausea vomiting no abdominal pain or diarrhea. No new labs has been obtained today blood culture has been negative Objective - Vital Signs Vital signs: Vital Signs Temp 98.1 F 09/24/24 09:29 Pulse 83 09/24/24 12:07 Resp 16 09/24/24 12:10 BP 108/70 09/24/24 12:07 Pulse Ox 94 L 09/24/24 12:10 FiO2 70 09/09/24 08:20 Intake & Output 09/23/24 09/24/24 09/24/24 18:59 06:59 18:59 Intake Total 927 120 260 Output Total 1100 1075 Balance -173 -955 260 Weight 55.2 kg Intake: IV 20 Invasive Line 7 20 Oral 927 120 240 Output: Urine 1100 1075 Other: Voiding Method Bedside Commode Bedside Commode Bedside Commode # Voids 1 1 # Bowel Movements 1 - Exam GENERAL DESCRIPTION: An elderly female up in chair in no distress RESPIRATORY SYSTEM: Unlabored breathing , decreased breath sounds at bases HEART: S1 S2 regular rate and rhythm , ABDOMEN: Soft , no tenderness EXTREMITIES: No edema feet - Labs CBC & Chem 7: 09/23/24 05:30 09/23/24 05:30 Labs: Abnormal Lab Results - Last 24 Hours (Table) 09/23/24 09/23/24 Range/Units 16:22 20:03 POC Glucose (mg/dL) 122 H 140 H (70-110) mg/dL Assessment and Plan (1) Leukocytosis Current Visit: Yes Status: Acute Code(s): D72.829 - ELEVATED WHITE BLOOD CELL COUNT, UNSPECIFIED SNOMED Code(s): 228798359 (2) Penicillin allergy Current Visit: Yes Status: Acute Code(s): Z88.0 - ALLERGY STATUS TO PENICILLIN SNOMED Code(s): 11618292 Plan: 1patient with elevated white count over the last 1 week and this patient has been in the hospital for almost 3 weeks before this initial consultation and has been treated for CHF exacerbation did require thoracocentesis on 09/06/2024 and those culture have been negative patient did not have any fever during this hospital stay does not look toxic has been exposed to steroids questionable steroid effect versus oropharyngeal candidiasis 2-blood culture have been negative so far 3. Patient white count is down to 14,000 as of yesterday no CBC was done today, patient to continue with the Diflucan and monitor clinical course closely Dictation was produced using [employer] dictation software. please excuse any grammatical, word or spelling errors. Time with Patient: Less than 30
[2024-09-24 16:24] LABS: Glucose,Whole Blood 119 mg/dL (70-110)
[2024-09-24 19:52] LABS: Glucose,Whole Blood 149 mg/dL (70-110)
[2024-09-25 05:50] LABS: Glucose,Whole Blood 94 mg/dL (70-110)
[2024-09-25] MEDS: BUDESONIDE 1 MG/2 ML NEBU INHALATION SCH (08:10)
[2024-09-25 10:46] LABS: Basophils # (A) 0.02 10*3/uL (0.00-0.10); Basophils % (A) 0.2 %; Eosinophils # (A) 0.07 10*3/uL (0.04-0.35); Eosinophils % (A) 0.5 %; HCT 43.2 % (37.2-46.3); HGB 14.7 g/dL (12.0-15.0); Lymphocytes % (A) 4.6 %; MCH 30.8 pg (27.0-32.0); MCV 90.6 fL (80.0-97.0); Mean Platelet Volume 10.2 fL (9.5-12.2); Monocytes # (A) 0.79 10*3/uL (0.20-1.00); Monocytes % (A) 6.1 %; Neutrophils # (A) 11.47 10*3/uL (1.80-7.70); Neutrophils % (A) 87.8 %; Platelet Count 225 10*3/uL (140-440); RBC 4.77 10*6/uL (4.10-5.20); RDW 16.1 % (11.5-14.5); WBC 13.05 10*3/uL (4.50-10.00)
[2024-09-25 10:56] LABS: African American GFR (CKD) >90 (>60 ml/min/1.73 sqM); Anion Gap 4 mmol/L; Blood Urea Nitrogen 34 mg/dL (7-17); Carbon Dioxide 33 mmol/L (22-30); Chloride 91 mmol/L (98-107); Glucose 109 mg/dL (74-99); Non-African American GFR(CKD) 86 (>60 ml/min/1.73 sqM); Potassium 4.4 mmol/L (3.5-5.1); Sodium 128 mmol/L (137-145)
[2024-09-25 11:59] LABS: Glucose,Whole Blood 111 mg/dL (70-110)
--- NOTE | 2024-09-25 14:19 | P.PN ---
Subjective Progress Note Date: 09/25/24 This is an 78-year-old female patient with no prior cardiac history but medical history significant for chronic hypoxic respiratory failure secondary to COPD and alpha 1 antitrypsin deficiency presented to the hospital with progressive exertional dyspnea associated with progressive bilateral lower extremity edema for the last few days. The patient has been in hospital for more than 2 weeks. Oxygenation is improved as the patient was on high flow oxygen for a long period of time and the patient is currently on 7 L of O2 nasal cannula. Unable to wean down the oxygen any further. No symptoms of chest pain or chest discomfort She underwent further evaluation including EKG showing RBBB. NT proBNP came to be elevated at 5000. chest x-ray showed finding consistent with pulmonary vascular congestions and left pleural effusion but CT scan of the chest showed no evidence of PE. Venous duplex study showed no evidence of DVT as well. CT of the chest that was done on this patient. The patient has extensive emphysematous changes bilaterally and the patient also has a moderate-sized left-sided pleural effusion. No airspace disease. No consolidation. No pneumonias. There is also a new moderate to small size pericardial effusion. Echocardiogram was completed on 08/31/2024 and the patient was found to have a preserved LV function with an EF of around 65% and the patient also had severe RV dilatation, reduced RV global systolic function and severe pulmonary hypertension along with moderate pericardial effusion without signs of any tamponade. The patient had severe tricuspid regurgitation. Estimated right ventricular systolic pressure was 94. 09/25/2024, the patient remains on oxygen at 7 L/min nasal cannula. She is quite weak and debilitated and she is experiencing shortness of breath at all times. She is still on a combination of diuretics. She is on Lasix 40 mg p.o. twice a day and Aldactone 50 mg p.o. daily. The patient remains on bronchodilators. The patient is on DuoNebtreatments on the clock, Perforomist and Pulmicort neb regimen twice a day. The patient is on a prednisone burst taper 40 mg as part of a burst taper. The patient was given Robaxin for severe pulm hypertension. Remains on Lovenox 40 mg subcu every 12 hours. Remains on aspirin. The white cell count is 13, hemoglobin 14.7 and the platelet count of 225. BUN is 34 with a creatinine 0.6. Sodium level is at 129 with a potassium level of 4.4. Cardiac rhythm remains sinus. Objective - Vital Signs Vital signs: Vital Signs Temp 97.5 F L 09/24/24 20:40 Pulse 92 09/25/24 08:44 Resp 18 09/25/24 04:05 BP 102/64 09/25/24 04:05 Pulse Ox 89 L 09/25/24 04:05 FiO2 70 09/09/24 08:20 Intake & Output 09/24/24 09/25/24 09/25/24 18:59 06:59 18:59 Intake Total 1282 260 240 Output Total 1500 800 Balance -218 260 -560 Weight 57 kg Intake: IV 20 20 Invasive Line 7 20 20 Oral 1262 240 240 Output: Urine 1500 800 Other: Voiding Method Bedside Commode Bedside Commode # Voids 2 - Exam the patient appeared well nourished and normally developed. Vital signs as documented. The patient is currently on 7 L of oxygen nasal cannula Head exam is unremarkable. No scleral icterus or corneal arcus noted. Neck is with jugular venous distension, thyromegaly, or carotid bruits. Carotid upstrokes are brisk bilaterally. Lungs a marked diminished breath sounds bilateral especially in the left lung base Cardiac exam reveals the PMI to be normally sized and situated. Rhythm is regular. First and second heart sounds normal. No murmurs, rubs or gallops. There is accentuation of second heart sound Abdominal exam reveals normal bowel sounds, no masses, no organomegaly and no aortic enlargement. Extremities show marked improvement in lower extremity edema, diminished pulses. No cyanosis or clubbing. Examination of the skin revealed no evidence of significant rashes, suspicious appearing nevi or other concerning lesions. Neurologically, the patient is awake and alert and the patient does not have any focal neurological deficit. Cranial nerves are essentially intact. - Labs CBC & Chem 7: 09/25/24 10:34 09/25/24 10:34 Labs: Abnormal Lab Results - Last 24 Hours (Table) 09/24/24 09/24/24 Range/Units 16:22 19:51 POC Glucose (mg/dL) 119 H 149 H (70-110) mg/dL Microbiology - Last 24 Hours (Table) 09/19/24 12:45 Blood Culture - Final Blood Assessment and Plan Plan: Acute on chronic hypoxic respiratory failure. The patient is typically on home O2 at 3 L/min nasal cannula. Reviewed the CT of the chest. No evidence of any pulm embolism. There are some atelectatic changes and small left-sided pleural effusion. The patient also has a moderate-sized pericardial effusion without signs of tamponade. Patient is postthoracentesis of the left lung that was done on 09/06/2024. Pleural fluid is a transudate. Patient is currently on oral Lasix and Aldactone. Chronic right-sided heart failure with severe pulmonary hypertension and severe tricuspid regurgitation Chronic lower extremity edema with obvious signs of fluid overload, marked improvement in edema and volume status Moderate-sized pericardial effusion, without signs of tamponade Severe pulmonary hypertension, WHO group 3, currently in regard to Advanced and chronic COPD with history of alpha 1 antitrypsin deficiency. The patient has MZ disease. She has been maintained on a combination of budesonide and Perforomist and Yupelri an outpatient basis in addition to albuterol nebulized treatments on as-needed basis Chronic anxiety Panic attacks Gout Urinary retention, seen by urology. Alba catheter has been inserted. Hypochloremic hyponatremia secondary to diuresis Plan Titrate oxygen flow, currently on 7 L with a pulse ox of 92 %. She is known to have chronic hypoxemia. Thoracentesis of the left lung was done and a total of 800 cc of pleural fluid was aspirated. The fluid is a transudate Continue Lasix 40 mg p.o. twice a day Continue Aldactone Prednisone burst taper Continue bronchodilators Titrate oxygen flow to maintain saturation above 90% Reviewed the CAT scan of the chest. Reviewed the Doppler of the lower extremities. Will discuss the pericardial effusion with cardiology Prognosis extremely poor based on above-mentioned comorbidities. Poor baseline performance and functional status. Unfortunately, not a whole lot can be offered from a pulmonary standpoint. This is a group 3 pulmonary hypertension. Will continue to follow DNR/DNI CODE STATUS Time with Patient: Greater than 30
[2024-09-25 16:06] LABS: Glucose,Whole Blood 136 mg/dL (70-110)
--- NOTE | 2024-09-25 19:41 | P.PN ---
Subjective Progress Note Date: 09/25/24 Patient is admitted for multifactorial respiratory failure secondary to CHF COPD with acute exacerbation still having hypoxia patient is on 10 L of oxygen patient has diminished air entry into bilateral lung gupta patient has alpha-1 antitrypsin deficiency leading to severe emphysema usually uses oxygen but patient is on high amount of oxygen at this time patient also has chronic right- sided heart failure with severe pulmonary hypertension and cor pulmonale. Patient had a CT of the chest as we are unable to wean her off oxygen CT did not show any pulmonary embolism but did show some pericardial effusion. 09/15/2024 Patient is evaluated today in the follow up. Sitting up in the chair. Continues with significant peripheral edema and pitting up to the thighs. Continues on oral lasix BID. Urine out 2.2 L so far today. IV lasix x 1 dose given also. Patient continues on 10 L of oxygen via nasal cannula. Labs today reveal sodium 128, potassium 3.4, CO2 45, BNP 18,000. Dr Allan in to see patient today for routine care and trimming of the nails on bilateral feet. 09/16/2024 Patient is evaluated again sitting up in the chair. Patients peripheral edema slightly improved. Over 4L of urine output yesterday. Remains on oral lasix 40 mg BID. Oxygen was increased to 12L hi flow. Labs today reveal white blood cell count 15.33, hgb 16.5, sodium 128, BUN 41, creatinine 0.72. Chloride 74, CO2 45. 09/17/2024 Patient is evaluated today sitting up in the chair. Patient continues with peripheral edema. Remains on 10 L of oxygen via nasal cannula. Not having any significant complaints. On fluid restriction 1200 CC. Labs today reveal white blood cell count of 20.47, hgb 16.8, sodium 128, potassium 3.4, CO2 48, chloride 73,. 09/18/2024 Patient is evaluated in follow-up today by the chair family at the bedside. She continues with significant lower extremity peripheral edema. She remains on times of oxygen via nasal cannula. She continues on Lasix 40 mg oral twice daily. White blood cell count today is 19.14, sodium level 129. BUN 46 creatinine 0.68. Heart rate in the 100s. 09/19/2024 Patient is eval in follow-up on the medical floor. Repeat chest x-ray reveals COPD and cardiomegaly suggest mild pulmonary vascular congestion. Similar to slightly improved small pleural effusion with adjacent atelectasis and/or consolidation. Subsequently patient went for a chest ultrasound which reveals a small to moderate 6.6 cm left pleural effusion pocket size. Was marked for possible thoracentesis. White blood cell count elevated at 20.11. Sodium level of 128 potassium 3.4, BUN of 46 creatinine 0.68. His CRP level was elevated at 5.7. Her viral panel repeat was negative for influenza RSV and COVID. ID was consulted for further management of the leukocytosis. 09/20/2024 Patient is evaluated today in follow up. States she feels tired today and has been dozing off. Chest ultrasound reveals small to moderate left pleural effusion. Continues on oral lasix 40 mg twice daily. Patient is on 12L hi flow cannula. White blood cell count 19.03, hgb 14.3, sodium 129, potassium 3.2, BUN 43, creatinine 0.69. Procalcitonin level 0.17. Pulmonology at this time not planning on thoracentesis. 09/21/2024 Patient is evaluated today in follow up. Patient sitting up in the chair. Re ned on 12L of oxygen via nasal cannula. Breathing more labored today. Discussed hospice vs. palliative care. Patient is on oral diflucan. Followed closely by ID and pulmonology. 09/22/2024 Patient is evaluated today in follow up sitting up in the chair. Down to 10 L of oxygen. ABGs done today and per pulmonary OK to leave the patient on 10L. White blood cell count 16. Sodium 129. No acute complaints, states she is breathing better today. 09/23/24--patient was seen and examined today. Currently on 9 L oxygen. Afebrile, heart rate 80, respiratory rate 20, blood pressure 95/59, saturating 93% on 1 L. WBCs 14.48, trending down, hemoglobin 15.3, platelet 237. Sodium 131 potassium 3.9 chloride 85 CO2 39 BUN 38 creatinine 0.79 Cardiopulmonary and infectious disease consulted. Patient currently on Diflucan. Also on p.o. Lasix 40 mg twice daily. Prednisone 40 mg daily. 09/24/24-- Patient was seen and examined today. Currently down to 7 L oxygen. Afebrile, heart rate 83, respiratory rate 16. No new labs today. Pulmonary following. Patient reported that she is feeling better. Breathing is better. 09/25/2024 Patient is evaluated today in follow up sitting up at the bedside. Remains on hi flow oxygen at 7L. White blood cell count 13.05. Sodium 128, BUN 34, creatinine 0.62. Review of Systems Constitutional: Denied any fatigue denied any fever. Cardio vascular: denied any chest pain, palpitations Gastrointestinal: denied any nausea, vomiting, diarrhea Pulmonary: Denied any shortness of breath cough Neurologic denied any new focal deficits All inpatient medications were reviewed and appropriate changes in these medications as dictated in the interval history and assessment and plan. PHYSICAL EXAMINATION: GENERAL: The patient is alert and oriented x3, not in any acute distress. Thin built cachectic female HEENT: Pupils are round and equally reacting to light. EOMI. No scleral icterus. No conjunctival pallor. Normocephalic, atraumatic. No pharyngeal erythema. No thyromegaly. CARDIOVASCULAR: S1 and S2 present. No murmurs, rubs, or gallops. PULMONARY: Decreased air entry to bilateral lung gupta ABDOMEN: Soft, nontender, nondistended, normoactive bowel sounds. No palpable organomegaly. MUSCULOSKELETAL: No joint swelling or deformity. EXTREMITIES: No cyanosis, clubbing, +1 pitting lower extremity edema NEUROLOGICAL: Gross neurological examination did not reveal any focal deficits. SKIN: No rashes. Assessment and plan -Acute on chronic hypoxic and hypercapnic respiratory failure secondary to COPD exacerbation right-sided heart failure pulmonary hypertension -Small to moderate left-sided pleural effusion patient is s/p thoracentesis of the left on September 06. At that time 800 mL of fluid was removed. -Hyponatremia secondary to excessive diuresis - Acute cor pulmonale - Leukocytosis likely steroid-induced - Congestive heart failure with preserved ejection fraction or diastolic dysfunction - Severe pulmonary hypertension - Trace pneumothorax with status post thoracentesis - Mild to moderate pericardial effusion - Urinary retention patient has a Alba catheter in place DVT prophylaxis: Patient will be started on low-dose Lovenox Continue oral lasix 40 mg BID and strict intake and output monitoring. Steroids have been decreased to oral prednisone 30 mg daily. Wean oxygen as tolerated. Repeat CBC, BMP in the AM. Cardiology and pulmonology following. Infectious disease was consulted. Patient continues on oral diflucan. Pulmonology with no plans for thoracentesis at this time. Patient continues on oxygen via nasal cannula at 7L Hospice vs. palliative may be appropriate at this time and this was discussed briefly with the patient for now she would like to continue current plan of care. Follow up CBC BMP The impression and plan of care has been dictated by Neli Redding, Nurse Practitioner as directed. Dr. Abe MD I have performed a history and physical examination and medical decision making of this patient, discussed the same with the dictator, and agree with the dictators assessment and plan as written, documented as a scribe. Based on total visit time, I have performed more than 50% of this visit. Objective - Vital Signs Vital signs: Vital Signs Temp 97.5 F L 09/24/24 20:40 Pulse 92 09/25/24 08:44 Resp 18 09/25/24 04:05 BP 102/64 09/25/24 04:05 Pulse Ox 89 L 09/25/24 04:05 FiO2 70 09/09/24 08:20 Intake & Output 09/24/24 09/25/24 09/25/24 18:59 06:59 18:59 Intake Total 1282 260 240 Output Total 1500 800 Balance -218 260 -560 Weight 57 kg Intake: IV 20 20 Invasive Line 7 20 20 Oral 1262 240 240 Output: Urine 1500 800 Other: Voiding Method Bedside Commode Bedside Commode # Voids 2 - Labs CBC & Chem 7: 09/25/24 10:34 09/25/24 10:34 Labs: Abnormal Lab Results - Last 24 Hours (Table) 09/24/24 09/24/24 Range/Units 16:22 19:51 POC Glucose (mg/dL) 119 H 149 H (70-110) mg/dL Microbiology - Last 24 Hours (Table) 09/19/24 12:45 Blood Culture - Final Blood Assessment and Plan Time with Patient: Less than 30
[2024-09-25 20:19] LABS: Glucose,Whole Blood 154 mg/dL (70-110)
[2024-09-26 05:58] LABS: Glucose,Whole Blood 102 mg/dL (70-110)
[2024-09-26 07:45] LABS: Basophils # (A) 0.02 10*3/uL (0.00-0.10); Basophils % (A) 0.2 %; Eosinophils # (A) 0.04 10*3/uL (0.04-0.35); Eosinophils % (A) 0.3 %; HGB 14.7 g/dL (12.0-15.0); Lymphocytes # (A) 0.52 10*3/uL (0.90-5.00); Lymphocytes % (A) 4.5 %; MCHC 34.2 g/dL (32.0-37.0); MCV 90.7 fL (80.0-97.0); Monocytes # (A) 0.81 10*3/uL (0.20-1.00); Neutrophils % (A) 87.2 %; Platelet Count 232 10*3/uL (140-440); RBC 4.74 10*6/uL (4.10-5.20); RDW 16.5 % (11.5-14.5); WBC 11.58 10*3/uL (4.50-10.00)
[2024-09-26 08:09] LABS: African American GFR (CKD) >90 (>60 ml/min/1.73 sqM); Anion Gap 8 mmol/L; Blood Urea Nitrogen 29 mg/dL (7-17); Carbon Dioxide 32 mmol/L (22-30); Chloride 91 mmol/L (98-107); Glucose 85 mg/dL (74-99); Non-African American GFR(CKD) 82 (>60 ml/min/1.73 sqM); Potassium 4.4 mmol/L (3.5-5.1); Sodium 131 mmol/L (137-145)
[2024-09-26] MEDS: predniSONE 10 MG TAB PO SCH (08:54)
[2024-09-26 11:59] LABS: Glucose,Whole Blood 138 mg/dL (70-110)
--- NOTE | 2024-09-26 15:36 | P.PN ---
Subjective Progress Note Date: 09/26/24 This is an 78-year-old female patient with no prior cardiac history but medical history significant for chronic hypoxic respiratory failure secondary to COPD and alpha 1 antitrypsin deficiency presented to the hospital with progressive exertional dyspnea associated with progressive bilateral lower extremity edema for the last few days. The patient has been in hospital for more than 2 weeks. Oxygenation is improved as the patient was on high flow oxygen for a long period of time and the patient is currently on 7 L of O2 nasal cannula. Unable to wean down the oxygen any further. No symptoms of chest pain or chest discomfort She underwent further evaluation including EKG showing RBBB. NT proBNP came to be elevated at 5000. chest x-ray showed finding consistent with pulmonary vascular congestions and left pleural effusion but CT scan of the chest showed no evidence of PE. Venous duplex study showed no evidence of DVT as well. CT of the chest that was done on this patient. The patient has extensive emphysematous changes bilaterally and the patient also has a moderate-sized left-sided pleural effusion. No airspace disease. No consolidation. No pneumonias. There is also a new moderate to small size pericardial effusion. Echocardiogram was completed on 08/31/2024 and the patient was found to have a preserved LV function with an EF of around 65% and the patient also had severe RV dilatation, reduced RV global systolic function and severe pulmonary hypertension along with moderate pericardial effusion without signs of any tamponade. The patient had severe tricuspid regurgitation. Estimated right ventricular systolic pressure was 94. 09/25/2024, the patient remains on oxygen at 7 L/min nasal cannula. She is quite weak and debilitated and she is experiencing shortness of breath at all times. She is still on a combination of diuretics. She is on Lasix 40 mg p.o. twice a day and Aldactone 50 mg p.o. daily. The patient remains on bronchodilators. The patient is on DuoNebtreatments on the clock, Perforomist and Pulmicort neb regimen twice a day. The patient is on a prednisone burst taper 40 mg as part of a burst taper. The patient was given Robaxin for severe pulm hypertension. Remains on Lovenox 40 mg subcu every 12 hours. Remains on aspirin. The white cell count is 13, hemoglobin 14.7 and the platelet count of 225. BUN is 34 with a creatinine 0.6. Sodium level is at 129 with a potassium level of 4.4. Cardiac rhythm remains sinus. On today's evaluation of 09/26/2024, the patient is stable and I was able to wean her down to 5 L of oxygen by nasal cannula. No new complaints. Remains on the same medication including the same combination of diuretics and the patient is currently on Aldactone 50 mg p.o. daily, Lasix 40 mg p.o. twice a day. Rest of the medications are unchanged. Remains on aspirin, Farxiga, and respiratory medication include Yupelri and Pulmicort and Perforomist updrafts and DuoNeb number of treatments [id number]. Remains on Aubagio. Blood work shows a WBC count of 11.5 with a heme of 14.7 and a platelet count of 232. Sodium is at 131, potassium is at 4.4, BUN 29 with a creatinine of 0.69. Objective - Vital Signs Vital signs: Vital Signs Temp 97.6 F 09/26/24 08:50 Pulse 69 09/26/24 08:50 Resp 17 09/26/24 08:50 BP 97/62 09/26/24 08:50 Pulse Ox 94 L 09/26/24 08:50 FiO2 70 09/09/24 08:20 Intake & Output 09/25/24 09/26/24 09/26/24 18:59 06:59 18:59 Intake Total 600 40 Output Total 1702 850 200 Balance -1102 -810 -200 Weight 54.1 kg Intake: Oral 600 40 Output: Urine 1700 850 200 Stool 2 Other: Voiding Method Bedside Commode Bedside Commode Bedside Commode # Voids 2 1 # Bowel Movements 1 - Exam the patient appeared well nourished and normally developed. Vital signs as documented. The patient is currently on 5 L of oxygen nasal cannula Head exam is unremarkable. No scleral icterus or corneal arcus noted. Neck is with jugular venous distension, thyromegaly, or carotid bruits. Carotid upstrokes are brisk bilaterally. Lungs a marked diminished breath sounds bilateral especially in the left lung b ase Cardiac exam reveals the PMI to be normally sized and situated. Rhythm is regular. First and second heart sounds normal. No murmurs, rubs or gallops. There is accentuation of second heart sound Abdominal exam reveals normal bowel sounds, no masses, no organomegaly and no aortic enlargement. Extremities show marked improvement in lower extremity edema, diminished pulses. No cyanosis or clubbing. Examination of the skin revealed no evidence of significant rashes, suspicious appearing nevi or other concerning lesions. Neurologically, the patient is awake and alert and the patient does not have any focal neurological deficit. Cranial nerves are essentially intact. - Labs CBC & Chem 7: 09/26/24 06:16 09/26/24 06:16 Labs: Abnormal Lab Results - Last 24 Hours (Table) 09/25/24 09/25/24 09/25/24 Range/Units 10:34 10:34 11:56 WBC 13.05 H (4.50-10.00) 10*3/uL Immature Gran # 0.10 H (0.00-0.04) 10*3/uL Neutrophils # 11.47 H (1.80-7.70) 10*3/uL Lymphocytes # 0.60 L (0.90-5.00) 10*3/uL Sodium 128 L (137-145) mmol/L Chloride 91 L (98-107) mmol/L Carbon Dioxide 33 H (22-30) mmol/L BUN 34 H (7-17) mg/dL Glucose 109 H (74-99) mg/dL POC Glucose (mg/dL) 111 H (70-110) mg/dL 09/25/24 09/25/24 09/26/24 Range/Units 16:04 20:18 06:16 WBC 11.58 H (4.50-10.00) 10*3/uL Immature Gran # 0.09 H (0.00-0.04) 10*3/uL Neutrophils # 10.10 H (1.80-7.70) 10*3/uL Lymphocytes # 0.52 L (0.90-5.00) 10*3/uL Sodium (137-145) mmol/L Chloride (98-107) mmol/L Carbon Dioxide (22-30) mmol/L BUN (7-17) mg/dL Glucose (74-99) mg/dL POC Glucose (mg/dL) 136 H 154 H (70-110) mg/dL 09/26/24 Range/Units 06:16 WBC (4.50-10.00) 10*3/uL Immature Gran # (0.00-0.04) 10*3/uL Neutrophils # (1.80-7.70) 10*3/uL Lymphocytes # (0.90-5.00) 10*3/uL Sodium 131 L (137-145) mmol/L Chloride 91 L (98-107) mmol/L Carbon Dioxide 32 H (22-30) mmol/L BUN 29 H (7-17) mg/dL Glucose (74-99) mg/dL POC Glucose (mg/dL) (70-110) mg/dL Assessment and Plan Plan: Acute on chronic hypoxic respiratory failure. The patient is typically on home O2 at 3 L/min nasal cannula. Reviewed the CT of the chest. No evidence of any pulm embolism. There are some atelectatic changes and small left-sided pleural effusion. The patient also has a moderate-sized pericardial effusion without signs of tamponade. Patient is postthoracentesis of the left lung that was done on 09/06/2024. Pleural fluid is a transudate. Patient is currently on oral Lasix and Aldactone. The patient has been gradually weaned off and currently she is on 5 L of O2 nasal cannula. Chronic right-sided heart failure with severe pulmonary hypertension and severe tricuspid regurgitation Chronic lower extremity edema with obvious signs of fluid overload, marked improvement in edema and volume status Moderate-sized pericardial effusion, without signs of tamponade Severe pulmonary hypertension, WHO group 3, currently in regard to Advanced and chronic COPD with history of alpha 1 antitrypsin deficiency. The patient has MZ disease. She has been maintained on a combination of budesonide and Perforomist and Yupelri an outpatient basis in addition to albuterol nebulized treatments on as-needed basis Chronic anxiety Panic attacks Gout Urinary retention, seen by urology. Alba catheter has been inserted. Hypochloremic hyponatremia secondary to diuresis Plan Titrate oxygen flow, currently on 5 L with a pulse ox of 92 %. She is known to have chronic hypoxemia. Thoracentesis of the left lung was done and a total of 800 cc of pleural fluid was aspirated. The fluid is a transudate Continue Lasix 40 mg p.o. twice a day Continue Aldactone Prednisone burst taper Continue bronchodilators, the patient is on DuoNeb updrafts, Perforomist and Pulmicort nebulized treatments and Yupelri Titrate oxygen flow to maintain saturation above 90% Reviewed the CAT scan of the chest. Reviewed the Doppler of the lower extremities. Will discuss the pericardial effusion with cardiology Prognosis extremely poor based on above-mentioned comorbidities. Poor baseline performance and functional status. Unfortunately, not a whole lot can be offered from a pulmonary standpoint. This is a group 3 pulmonary hypertension. Will continue to follow DNR/DNI CODE STATUS Time with Patient: Greater than 30
--- NOTE | 2024-09-26 15:38 | P.PN ---
Subjective Progress Note Date: 09/26/24 Patient is admitted for multifactorial respiratory failure secondary to CHF COPD with acute exacerbation still having hypoxia patient is on 10 L of oxygen patient has diminished air entry into bilateral lung gupta patient has alpha-1 antitrypsin deficiency leading to severe emphysema usually uses oxygen but patient is on high amount of oxygen at this time patient also has chronic right- sided heart failure with severe pulmonary hypertension and cor pulmonale. Patient had a CT of the chest as we are unable to wean her off oxygen CT did not show any pulmonary embolism but did show some pericardial effusion. 09/15/2024 Patient is evaluated today in the follow up. Sitting up in the chair. Continues with significant peripheral edema and pitting up to the thighs. Continues on oral lasix BID. Urine out 2.2 L so far today. IV lasix x 1 dose given also. Patient continues on 10 L of oxygen via nasal cannula. Labs today reveal sodium 128, potassium 3.4, CO2 45, BNP 18,000. Dr Allan in to see patient today for routine care and trimming of the nails on bilateral feet. 09/16/2024 Patient is evaluated again sitting up in the chair. Patients peripheral edema slightly improved. Over 4L of urine output yesterday. Remains on oral lasix 40 mg BID. Oxygen was increased to 12L hi flow. Labs today reveal white blood cell count 15.33, hgb 16.5, sodium 128, BUN 41, creatinine 0.72. Chloride 74, CO2 45. 09/17/2024 Patient is evaluated today sitting up in the chair. Patient continues with peripheral edema. Remains on 10 L of oxygen via nasal cannula. Not having any significant complaints. On fluid restriction 1200 CC. Labs today reveal white blood cell count of 20.47, hgb 16.8, sodium 128, potassium 3.4, CO2 48, chloride 73,. 09/18/2024 Patient is evaluated in follow-up today by the chair family at the bedside. She continues with significant lower extremity peripheral edema. She remains on times of oxygen via nasal cannula. She continues on Lasix 40 mg oral twice daily. White blood cell count today is 19.14, sodium level 129. BUN 46 creatinine 0.68. Heart rate in the 100s. 09/19/2024 Patient is eval in follow-up on the medical floor. Repeat chest x-ray reveals COPD and cardiomegaly suggest mild pulmonary vascular congestion. Similar to slightly improved small pleural effusion with adjacent atelectasis and/or consolidation. Subsequently patient went for a chest ultrasound which reveals a small to moderate 6.6 cm left pleural effusion pocket size. Was marked for possible thoracentesis. White blood cell count elevated at 20.11. Sodium level of 128 potassium 3.4, BUN of 46 creatinine 0.68. His CRP level was elevated at 5.7. Her viral panel repeat was negative for influenza RSV and COVID. ID was consulted for further management of the leukocytosis. 09/20/2024 Patient is evaluated today in follow up. States she feels tired today and has been dozing off. Chest ultrasound reveals small to moderate left pleural effusion. Continues on oral lasix 40 mg twice daily. Patient is on 12L hi flow cannula. White blood cell count 19.03, hgb 14.3, sodium 129, potassium 3.2, BUN 43, creatinine 0.69. Procalcitonin level 0.17. Pulmonology at this time not planning on thoracentesis. 09/21/2024 Patient is evaluated today in follow up. Patient sitting up in the chair. Re ned on 12L of oxygen via nasal cannula. Breathing more labored today. Discussed hospice vs. palliative care. Patient is on oral diflucan. Followed closely by ID and pulmonology. 09/22/2024 Patient is evaluated today in follow up sitting up in the chair. Down to 10 L of oxygen. ABGs done today and per pulmonary OK to leave the patient on 10L. White blood cell count 16. Sodium 129. No acute complaints, states she is breathing better today. 09/23/24--patient was seen and examined today. Currently on 9 L oxygen. Afebrile, heart rate 80, respiratory rate 20, blood pressure 95/59, saturating 93% on 1 L. WBCs 14.48, trending down, hemoglobin 15.3, platelet 237. Sodium 131 potassium 3.9 chloride 85 CO2 39 BUN 38 creatinine 0.79 Cardiopulmonary and infectious disease consulted. Patient currently on Diflucan. Also on p.o. Lasix 40 mg twice daily. Prednisone 40 mg daily. 09/24/24-- Patient was seen and examined today. Currently down to 7 L oxygen. Afebrile, heart rate 83, respiratory rate 16. No new labs today. Pulmonary following. Patient reported that she is feeling better. Breathing is better. 09/25/2024 Patient is evaluated today in follow up sitting up at the bedside. Remains on hi flow oxygen at 7L. White blood cell count 13.05. Sodium 128, BUN 34, creatinine 0.62. 09/26/2024 Patient is eval seen in follow-up on the medical floor. Her family is at the bedside. She has been weaned down to oxygen via nasal cannula at 5 L. Patient's concentrator only reaches 5 L and so she will need new oxygen supplies on discharge. Her white blood cell count continues to improve down to 11.58. Her hemoglobin is 14.7. Sodium level is 131, BUN of 29 creatinine 0.69. Family is getting the house ready and patient will be discharged home tomorrow. Review of Systems Constitutional: Denied any fatigue denied any fever. Cardio vascular: denied any chest pain, palpitations Gastrointestinal: denied any nausea, vomiting, diarrhea Pulmonary: Denied any shortness of breath cough Neurologic denied any new focal deficits All inpatient medications were reviewed and appropriate changes in these medications as dictated in the interval history and assessment and plan. PHYSICAL EXAMINATION: GENERAL: The patient is alert and oriented x3, not in any acute distress. Thin built cachectic female HEENT: Pupils are round and equally reacting to light. EOMI. No scleral icterus. No conjunctival pallor. Normocephalic, atraumatic. No pharyngeal erythema. No thyromegaly. CARDIOVASCULAR: S1 and S2 present. No murmurs, rubs, or gallops. PULMONARY: Decreased air entry to bilateral lung gupta ABDOMEN: Soft, nontender, nondistended, normoactive bowel sounds. No palpable organomegaly. MUSCULOSKELETAL: No joint swelling or deformity. EXTREMITIES: No cyanosis, clubbing, +1 pitting lower extremity edema NEUROLOGICAL: Gross neurological examination did not reveal any focal deficits. SKIN: No rashes. Assessment and plan -Acute on chronic hypoxic and hypercapnic respiratory failure secondary to COPD exacerbation right-sided heart failure pulmonary hypertension -Small to moderate left-sided pleural effusion patient is s/p thoracentesis of the left on September 06. At that time 800 mL of fluid was removed. -Hyponatremia secondary to excessive diuresis - Acute cor pulmonale - Leukocytosis likely steroid-induced - Congestive heart failure with preserved ejection fraction or diastolic dysfunction - Severe pulmonary hypertension - Trace pneumothorax with status post thoracentesis - Mild to moderate pericardial effusion - Urinary retention patient has a Alba catheter in place DVT prophylaxis: Patient will be started on low-dose Lovenox Continue oral lasix 40 mg BID and strict intake and output monitoring. Steroids have been decreased to oral prednisone 30 mg daily. Wean oxygen as tolerated. Repeat CBC, BMP in the AM. Cardiology and pulmonology following. Infectious disease was consulted. Patient continues on oral diflucan. Pulmonology with no plans for thoracentesis at this time. Patient continues on oxygen via nasal cannula at 5L Hospice vs. palliative may be appropriate at this time and this was discussed briefly with the patient for now she would like to continue current plan of care. Follow up CBC BMP. As patient has been weaned down to oxygen at 5 L nasal cannula she is not a candidate for discharge home. She wishes to return home with home care services and has her friend and her son that are helping around the house. She does need encouragement to get up to the bathroom versus the bedside commode. She is working with physical therapy daily. She will be discharged home in the next 24 hours. The impression and plan of care has been dictated by Neli Redding, Nurse Practitioner as directed. Dr. Abe MD I have performed a history and physical examination and medical decision making of this patient, discussed the same with the dictator, and agree with the dictators assessment and plan as written, documented as a scribe. Based on total visit time, I have performed more than 50% of this visit. Objective - Vital Signs Vital signs: Vital Signs Temp 97.6 F 09/26/24 08:50 Pulse 69 09/26/24 08:50 Resp 17 09/26/24 08:50 BP 97/62 09/26/24 08:50 Pulse Ox 94 L 09/26/24 08:50 FiO2 70 09/09/24 08:20 Intake & Output 09/25/24 09/26/24 09/26/24 18:59 06:59 18:59 Intake Total 600 40 Output Total 1702 850 200 Balance -1102 -810 -200 Weight 54.1 kg Intake: Oral 600 40 Output: Urine 1700 850 200 Stool 2 Other: Voiding Method Bedside Commode Bedside Commode Bedside Commode # Voids 2 1 # Bowel Movements 1 - Labs CBC & Chem 7: 09/26/24 06:16 09/26/24 06:16 Labs: Abnormal Lab Results - Last 24 Hours (Table) 09/25/24 09/25/24 09/25/24 Range/Units 10:34 10:34 11:56 WBC 13.05 H (4.50-10.00) 10*3/uL Immature Gran # 0.10 H (0.00-0.04) 10*3/uL Neutrophils # 11.47 H (1.80-7.70) 10*3/uL Lymphocytes # 0.60 L (0.90-5.00) 10*3/uL Sodium 128 L (137-145) mmol/L Chloride 91 L (98-107) mmol/L Carbon Dioxide 33 H (22-30) mmol/L BUN 34 H (7-17) mg/dL Glucose 109 H (74-99) mg/dL POC Glucose (mg/dL) 111 H (70-110) mg/dL 09/25/24 09/25/24 09/26/24 Range/Units 16:04 20:18 06:16 WBC 11.58 H (4.50-10.00) 10*3/uL Immature Gran # 0.09 H (0.00-0.04) 10*3/uL Neutrophils # 10.10 H (1.80-7.70) 10*3/uL Lymphocytes # 0.52 L (0.90-5.00) 10*3/uL Sodium (137-145) mmol/L Chloride (98-107) mmol/L Carbon Dioxide (22-30) mmol/L BUN (7-17) mg/dL Glucose (74-99) mg/dL POC Glucose (mg/dL) 136 H 154 H (70-110) mg/dL 09/26/24 Range/Units 06:16 WBC (4.50-10.00) 10*3/uL Immature Gran # (0.00-0.04) 10*3/uL Neutrophils # (1.80-7.70) 10*3/uL Lymphocytes # (0.90-5.00) 10*3/uL Sodium 131 L (137-145) mmol/L Chloride 91 L (98-107) mmol/L Carbon Dioxide 32 H (22-30) mmol/L BUN 29 H (7-17) mg/dL Glucose (74-99) mg/dL POC Glucose (mg/dL) (70-110) mg/dL Assessment and Plan Time with Patient: Less than 30
[2024-09-26 16:42] LABS: Glucose,Whole Blood 123 mg/dL (70-110)
[2024-09-26 20:05] LABS: Glucose,Whole Blood 162 mg/dL (70-110)
[2024-09-27 06:19] LABS: Glucose,Whole Blood 119 mg/dL (70-110)
[2024-09-27 07:32] LABS: African American GFR (CKD) >90 (>60 ml/min/1.73 sqM); Anion Gap 8 mmol/L; Blood Urea Nitrogen 29 mg/dL (7-17); Calcium 9.3 mg/dL (8.4-10.2); Carbon Dioxide 33 mmol/L (22-30); Chloride 90 mmol/L (98-107); Glucose 68 mg/dL (74-99); Non-African American GFR(CKD) 84 (>60 ml/min/1.73 sqM); Potassium 4.1 mmol/L (3.5-5.1); Sodium 131 mmol/L (137-145)
--- NOTE | 2024-09-27 08:42 | P.PN ---
Subjective Progress Note Date: 09/25/24 Principal diagnosis: Reason for follow-up is leukocytosis Patient is a 78-year-old female with a past medical history significant for COPD heart failure gout anxiety panic disorder hypertension presenting to the hospital about 3 weeks before initial evaluation for eval uation of difficulty in breathing she did have elevated white count probably this consultation On today's visit that is 09/25/2024, patient has been afebrile, patient is breathing comfortably and is currently down to 7 L nasal cannula oxygen patient denies having any chest pain or any worsening, no abdominal pain or diarrhea Patient white count is down to 13.05, creatinine 0.62 Objective - Vital Signs Vital signs: Vital Signs Temp 97.4 F L 09/25/24 08:30 Pulse 88 09/25/24 11:51 Resp 18 09/25/24 08:30 BP 102/54 09/25/24 08:30 Pulse Ox 100 09/25/24 08:30 FiO2 70 09/09/24 08:20 Intake & Output 09/24/24 09/25/24 09/25/24 18:59 06:59 18:59 Intake Total 1282 260 240 Output Total 1500 801 Balance -218 260 -561 Weight 57 kg Intake: IV 20 20 Invasive Line 7 20 20 Oral 1262 240 240 Output: Urine 1500 800 Stool 1 Other: Voiding Method Bedside Commode Bedside Commode Bedside Commode # Voids 2 - Exam GENERAL DESCRIPTION: An elderly female up in chair in no distress RESPIRATORY SYSTEM: Unlabored breathing , decreased breath sounds at bases HEART: S1 S2 regular rate and rhythm , ABDOMEN: Soft , no tenderness EXTREMITIES: No edema feet - Labs CBC & Chem 7: 09/26/24 06:16 09/27/24 05:38 Labs: Abnormal Lab Results - Last 24 Hours (Table) 09/24/24 09/24/24 09/25/24 Range/Units 16:22 19:51 10:34 WBC 13.05 H (4.50-10.00) 10*3/uL Immature Gran # 0.10 H (0.00-0.04) 10*3/uL Neutrophils # 11.47 H (1.80-7.70) 10*3/uL Lymphocytes # 0.60 L (0.90-5.00) 10*3/uL Sodium (137-145) mmol/L Chloride (98-107) mmol/L Carbon Dioxide (22-30) mmol/L BUN (7-17) mg/dL Glucose (74-99) mg/dL POC Glucose (mg/dL) 119 H 149 H (70-110) mg/dL 09/25/24 09/25/24 Range/Units 10:34 11:56 WBC (4.50-10.00) 10*3/uL Immature Gran # (0.00-0.04) 10*3/uL Neutrophils # (1.80-7.70) 10*3/uL Lymphocytes # (0.90-5.00) 10*3/uL Sodium 128 L (137-145) mmol/L Chloride 91 L (98-107) mmol/L Carbon Dioxide 33 H (22-30) mmol/L BUN 34 H (7-17) mg/dL Glucose 109 H (74-99) mg/dL POC Glucose (mg/dL) 111 H (70-110) mg/dL Microbiology - Last 24 Hours (Table) 09/19/24 12:45 Blood Culture - Final Blood Assessment and Plan (1) Leukocytosis Current Visit: Yes Status: Acute Code(s): D72.829 - ELEVATED WHITE BLOOD CELL COUNT, UNSPECIFIED SNOMED Code(s): 924581301 (2) Penicillin allergy Current Visit: Yes Status: Acute Code(s): Z88.0 - ALLERGY STATUS TO PENICILLIN SNOMED Code(s): 60303792 Plan: 1patient with elevated white count over the last 1 week and this patient has been in the hospital for almost 3 weeks before this initial consultation and has been treated for CHF exacerbation did require thoracocentesis on 09/06/2024 and those culture have been negative patient did not have any fever during this hospital stay does not look toxic has been exposed to steroids questionable steroid effect versus oropharyngeal candidiasis 2-blood culture have been negative so far 3. Patient white count is down to 13,000, patient to be treated with the Diflucan and monitor clinical course closely Dictation was produced using [employer] dictation software. please excuse any grammatical, word or spelling errors. Time with Patient: Less than 30
--- NOTE | 2024-09-27 08:43 | P.PN ---
Subjective Progress Note Date: 09/26/24 Principal diagnosis: Reason for follow-up is leukocytosis Patient is a 78-year-old female with a past medical history significant for COPD heart failure gout anxiety panic disorder hypertension presenting to the hospital about 3 weeks before initial evaluation for eval uation of difficulty in breathing she did have elevated white count probably this consultation On today's visit that is 09/26/2024, Patient is afebrile this morning patient denies having any chest pain shortness of breath or cough, the patient is currently down to 6 L nasal cannula oxygen, patient denies any abdominal pain no diarrhea no nausea no vomiting Patient white count is down to 11.58 creatinine 0.6 Objective - Vital Signs Vital signs: Vital Signs Temp 97.6 F 09/26/24 08:50 Pulse 80 09/26/24 15:32 Resp 18 09/26/24 11:07 BP 95/55 09/26/24 11:07 Pulse Ox 92 L 09/26/24 11:07 FiO2 70 09/09/24 08:20 Intake & Output 09/25/24 09/26/24 09/26/24 18:59 06:59 18:59 Intake Total 600 40 Output Total 1702 850 200 Balance -1102 -810 -200 Weight 54.1 kg Intake: Oral 600 40 Output: Urine 1700 850 200 Stool 2 Other: Voiding Method Bedside Commode Bedside Commode Bedside Commode # Voids 2 1 # Bowel Movements 1 - Exam GENERAL DESCRIPTION: An elderly female up in chair in no distress RESPIRATORY SYSTEM: Unlabored breathing , decreased breath sounds at bases HEART: S1 S2 regular rate and rhythm , ABDOMEN: Soft , no tenderness EXTREMITIES: No edema feet - Labs CBC & Chem 7: 09/26/24 06:16 09/27/24 05:38 Labs: Abnormal Lab Results - Last 24 Hours (Table) 09/25/24 09/25/24 09/26/24 Range/Units 16:04 20:18 06:16 WBC 11.58 H (4.50-10.00) 10*3/uL Immature Gran # 0.09 H (0.00-0.04) 10*3/uL Neutrophils # 10.10 H (1.80-7.70) 10*3/uL Lymphocytes # 0.52 L (0.90-5.00) 10*3/uL Sodium (137-145) mmol/L Chloride (98-107) mmol/L Carbon Dioxide (22-30) mmol/L BUN (7-17) mg/dL POC Glucose (mg/dL) 136 H 154 H (70-110) mg/dL 09/26/24 09/26/24 Range/Units 06:16 11:58 WBC (4.50-10.00) 10*3/uL Immature Gran # (0.00-0.04) 10*3/uL Neutrophils # (1.80-7.70) 10*3/uL Lymphocytes # (0.90-5.00) 10*3/uL Sodium 131 L (137-145) mmol/L Chloride 91 L (98-107) mmol/L Carbon Dioxide 32 H (22-30) mmol/L BUN 29 H (7-17) mg/dL POC Glucose (mg/dL) 138 H (70-110) mg/dL Assessment and Plan (1) Leukocytosis Current Visit: Yes Status: Acute Code(s): D72.829 - ELEVATED WHITE BLOOD CELL COUNT, UNSPECIFIED SNOMED Code(s): 258910019 (2) Penicillin allergy Current Visit: Yes Status: Acute Code(s): Z88.0 - ALLERGY STATUS TO PENICILLIN SNOMED Code(s): 82394514 Plan: 1patient with elevated white count over the last 1 week and this patient has been in the hospital for almost 3 weeks before this initial consultation and has been treated for CHF exacerbation did require thoracocentesis on 09/06/2024 and those culture have been negative patient did not have any fever during this hospital stay does not look toxic has been exposed to steroids questionable steroid effect versus oropharyngeal candidiasis 2-blood culture have been negative so far 3. Patient white count is down to 11,000 with Diflucan which will be continued for another 7 days and monitor clinical course closely Dictation was produced using [employer] dictation software. please excuse any grammatical, word or spelling errors. Time with Patient: Less than 30
[2024-09-27 09:27] LABS: Basophils # (A) 0.02 10*3/uL (0.00-0.10); Basophils % (A) 0.2 %; Eosinophils # (A) 0.05 10*3/uL (0.04-0.35); Eosinophils % (A) 0.4 %; HGB 14.7 g/dL (12.0-15.0); Lymphocytes % (A) 5.4 %; MCH 31.2 pg (27.0-32.0); MCHC 34.2 g/dL (32.0-37.0); MCV 91.3 fL (80.0-97.0); Mean Platelet Volume 10.8 fL (9.5-12.2); Monocytes % (A) 6.2 %; Neutrophils # (A) 9.78 10*3/uL (1.80-7.70); Neutrophils % (A) 87.3 %; Platelet Count 215 10*3/uL (140-440); RBC 4.71 10*6/uL (4.10-5.20); RDW 16.6 % (11.5-14.5); WBC 11.21 10*3/uL (4.50-10.00)
[2024-09-27 09:29] VITALS: TEMP 97.5
[2024-09-27 11:36] VITALS: PULSE 84
[2024-09-27 11:40] LABS: Glucose,Whole Blood 121 mg/dL (70-110)
[2024-09-27 12:38] VITALS: BP 96/59; RESP 18
--- NOTE | 2024-09-27 12:38 | P.PN ---
Subjective Progress Note Date: 09/27/24 Principal diagnosis: Reason for follow-up is leukocytosis Patient is a 78-year-old female with a past medical history significant for COPD heart failure gout anxiety panic disorder hypertension presenting to the hospital about 3 weeks before initial evaluation for eval uation of difficulty in breathing she did have elevated white count probably this consultation On today's visit that is 09/27/2024,the patient denies any fever or any chills, patient is breathing comfortably on 5 L nasal cannula oxygen the patient denies chest pain shortness of breath and no significant cough, patient denies abdominal pain, no nausea vomiting or diarrhea. Patient white count is down to 11.21, creatinine 0.65 blood urine culture have been negative Objective - Vital Signs Vital signs: Vital Signs Temp 97.5 F L 09/27/24 08:00 Pulse 84 09/27/24 11:46 Resp 19 09/27/24 08:00 BP 93/57 09/27/24 08:00 Pulse Ox 94 L 09/27/24 08:00 FiO2 70 09/09/24 08:20 Intake & Output 09/26/24 09/27/24 09/27/24 18:59 06:59 18:59 Output Total 1400 975 200 Balance -1400 -975 -200 Weight 53.4 kg Output: Urine 1400 975 200 Other: Voiding Method Bedside Commode Toilet Toilet # Voids 1 1 # Bowel Movements 1 1 - Exam GENERAL DESCRIPTION: An elderly female up in chair in no distress RESPIRATORY SYSTEM: Unlabored breathing , decreased breath sounds at bases HEART: S1 S2 regular rate and rhythm , ABDOMEN: Soft , no tenderness EXTREMITIES: No edema feet - Labs CBC & Chem 7: 09/27/24 05:38 09/27/24 05:38 Labs: Abnormal Lab Results - Last 24 Hours (Table) 09/26/24 09/26/24 09/27/24 Range/Units 16:40 20:04 05:38 WBC 11.21 H (4.50-10.00) 10*3/uL Immature Gran # 0.06 H (0.00-0.04) 10*3/uL Neutrophils # 9.78 H (1.80-7.70) 10*3/uL Lymphocytes # 0.60 L (0.90-5.00) 10*3/uL Sodium (137-145) mmol/L Chloride (98-107) mmol/L Carbon Dioxide (22-30) mmol/L BUN (7-17) mg/dL Glucose (74-99) mg/dL POC Glucose (mg/dL) 123 H 162 H (70-110) mg/dL 09/27/24 09/27/24 09/27/24 Range/Units 05:38 06:18 11:39 WBC (4.50-10.00) 10*3/uL Immature Gran # (0.00-0.04) 10*3/uL Neutrophils # (1.80-7.70) 10*3/uL Lymphocytes # (0.90-5.00) 10*3/uL Sodium 131 L (137-145) mmol/L Chloride 90 L (98-107) mmol/L Carbon Dioxide 33 H (22-30) mmol/L BUN 29 H (7-17) mg/dL Glucose 68 L (74-99) mg/dL POC Glucose (mg/dL) 119 H 121 H (70-110) mg/dL Assessment and Plan (1) Leukocytosis Current Visit: Yes Status: Acute Code(s): D72.829 - ELEVATED WHITE BLOOD CELL COUNT, UNSPECIFIED SNOMED Code(s): 783638211 (2) Penicillin allergy Current Visit: Yes Status: Acute Code(s): Z88.0 - ALLERGY STATUS TO PENICILLIN SNOMED Code(s): 52837012 Plan: 1patient with elevated white count over the last 1 week and this patient has been in the hospital for almost 3 weeks before this initial consultation and has been treated for CHF exacerbation did require thoracocentesis on 09/06/2024 and those culture have been negative patient did not have any fever during this hospital stay does not look toxic has been exposed to steroids questionable steroid effect versus oropharyngeal candidiasis 2-blood culture have been negative so far 3. Patient remains to be febrile patient white count is trending down almost normalized continue with the Diflucan for about a week on discharge Dictation was produced using [employer] software. please excuse any grammatical, word or spelling errors.
--- NOTE | 2024-09-27 17:11 | P.PN ---
Subjective Progress Note Date: 09/27/24 This is an 78-year-old female patient with no prior cardiac history but medical history significant for chronic hypoxic respiratory failure secondary to COPD and alpha 1 antitrypsin deficiency presented to the hospital with progressive exertional dyspnea associated with progressive bilateral lower extremity edema for the last few days. The patient has been in hospital for more than 2 weeks. Oxygenation is improved as the patient was on high flow oxygen for a long period of time and the patient is currently on 7 L of O2 nasal cannula. Unable to wean down the oxygen any further. No symptoms of chest pain or chest discomfort She underwent further evaluation including EKG showing RBBB. NT proBNP came to be elevated at 5000. chest x-ray showed finding consistent with pulmonary vascular congestions and left pleural effusion but CT scan of the chest showed no evidence of PE. Venous duplex study showed no evidence of DVT as well. CT of the chest that was done on this patient. The patient has extensive emphysematous changes bilaterally and the patient also has a moderate-sized left-sided pleural effusion. No airspace disease. No consolidation. No pneumonias. There is also a new moderate to small size pericardial effusion. Echocardiogram was completed on 08/31/2024 and the patient was found to have a preserved LV function with an EF of around 65% and the patient also had severe RV dilatation, reduced RV global systolic function and severe pulmonary hypertension along with moderate pericardial effusion without signs of any tamponade. The patient had severe tricuspid regurgitation. Estimated right ventricular systolic pressure was 94. 09/25/2024, the patient remains on oxygen at 7 L/min nasal cannula. She is quite weak and debilitated and she is experiencing shortness of breath at all times. She is still on a combination of diuretics. She is on Lasix 40 mg p.o. twice a day and Aldactone 50 mg p.o. daily. The patient remains on bronchodilators. The patient is on DuoNebtreatments on the clock, Perforomist and Pulmicort neb regimen twice a day. The patient is on a prednisone burst taper 40 mg as part of a burst taper. The patient was given Robaxin for severe pulm hypertension. Remains on Lovenox 40 mg subcu every 12 hours. Remains on aspirin. The white cell count is 13, hemoglobin 14.7 and the platelet count of 225. BUN is 34 with a creatinine 0.6. Sodium level is at 129 with a potassium level of 4.4. Cardiac rhythm remains sinus. On today's evaluation of 09/26/2024, the patient is stable and I was able to wean her down to 5 L of oxygen by nasal cannula. No new complaints. Remains on the same medication including the same combination of diuretics and the patient is currently on Aldactone 50 mg p.o. daily, Lasix 40 mg p.o. twice a day. Rest of the medications are unchanged. Remains on aspirin, Farxiga, and respiratory medication include Yupelri and Pulmicort and Perforomist updrafts and DuoNeb number of treatments [id number]. Remains on Aubagio. Blood work shows a WBC count of 11.5 with a heme of 14.7 and a platelet count of 232. Sodium is at 131, potassium is at 4.4, BUN 29 with a creatinine of 0.69. 08/30/2024, the patient is on 5 L of oxygen by nasal cannula. The patient is to be discharged home today and will arrange a concentrator that goes up to 10 L for this patient. Otherwise, she is doing well. No new complaints. The white cell count 11.2 with a heme of 14.7 and platelet count of 215. BUN 29 with a creatinine of 0.6 and sodium is 131 and a potassium level is at 4.1. Serum bicarb is at 33. She is overall weak and seems to be quite debilitated yet her oxygenation has improved considerably following this prolonged hospitalization. Objective - Vital Signs Vital signs: Vital Signs Temp 97.5 F L 09/27/24 08:00 Pulse 92 09/27/24 08:19 Resp 19 09/27/24 08:00 BP 93/57 09/27/24 08:00 Pulse Ox 94 L 09/27/24 08:00 FiO2 70 09/09/24 08:20 Intake & Output 09/26/24 09/27/24 09/27/24 18:59 06:59 18:59 Output Total 1400 975 200 Balance -1400 -975 -200 Weight 53.4 kg Output: Urine 1400 975 200 Other: Voiding Method Bedside Commode Toilet Toilet # Voids 1 1 # Bowel Movements 1 1 - Exam the patient appeared well nourished and normally developed. Vital signs as documented. The patient is currently on 5 L of oxygen nasal cannula Head exam is unremarkable. No scleral icterus or corneal arcus noted. Neck is with jugular venous distension, thyromegaly, or carotid bruits. Carotid upstrokes are brisk bilaterally. Lungs a marked diminished breath sounds bilateral especially in the left lung base Cardiac exam reveals the PMI to be normally sized and situated. Rhythm is regular. First and second heart sounds normal. No murmurs, rubs or gallops. There is accentuation of second heart sound Abdominal exam reveals normal bowel sounds, no masses, no organomegaly and no aortic enlargement. Extremities show marked improvement in lower extremity edema, diminished pulses. No cyanosis or clubbing. Examination of the skin revealed no evidence of significant rashes, suspicious appearing nevi or other concerning lesions. Neurologically, the patient is awake and alert and the patient does not have any focal neurological deficit. Cranial nerves are essentially intact. - Labs CBC & Chem 7: 09/27/24 05:38 09/27/24 05:38 Labs: Abnormal Lab Results - Last 24 Hours (Table) 09/26/24 09/26/24 09/26/24 Range/Units 11:58 16:40 20:04 WBC (4.50-10.00) 10*3/uL Immature Gran # (0.00-0.04) 10*3/uL Neutrophils # (1.80-7.70) 10*3/uL Lymphocytes # (0.90-5.00) 10*3/uL Sodium (137-145) mmol/L Chloride (98-107) mmol/L Carbon Dioxide (22-30) mmol/L BUN (7-17) mg/dL Glucose (74-99) mg/dL POC Glucose (mg/dL) 138 H 123 H 162 H (70-110) mg/dL 09/27/24 09/27/24 09/27/24 Range/Units 05:38 05:38 06:18 WBC 11.21 H (4.50-10.00) 10*3/uL Immature Gran # 0.06 H (0.00-0.04) 10*3/uL Neutrophils # 9.78 H (1.80-7.70) 10*3/uL Lymphocytes # 0.60 L (0.90-5.00) 10*3/uL Sodium 131 L (137-145) mmol/L Chloride 90 L (98-107) mmol/L Carbon Dioxide 33 H (22-30) mmol/L BUN 29 H (7-17) mg/dL Glucose 68 L (74-99) mg/dL POC Glucose (mg/dL) 119 H (70-110) mg/dL Assessment and Plan Plan: Acute on chronic hypoxic respiratory failure. The patient is typically on home O2 at 3 L/min nasal cannula. Reviewed the CT of the chest. No evidence of any pulm embolism. There are some atelectatic changes and small left-sided pleural effusion. The patient also has a moderate-sized pericardial effusion without signs of tamponade. Patient is postthoracentesis of the left lung that was done on 09/06/2024. Pleural fluid is a transudate. Patient is currently on oral Lasix and Aldactone. The patient has been gradually weaned off and currently she is on 5 L of O2 nasal cannula. Chronic right-sided heart failure with severe pulmonary hypertension and severe tricuspid regurgitation Chronic lower extremity edema with obvious signs of fluid overload, marked improvement in edema and volume status Moderate-sized pericardial effusion, without signs of tamponade Severe pulmonary hypertension, WHO group 3, currently in regard to Advanced and chronic COPD with history of alpha 1 antitrypsin deficiency. The patient has MZ disease. She has been maintained on a combination of budesonide and Perforomist and Yupelri an outpatient basis in addition to albuterol nebulized treatments on as-needed basis Chronic anxiety Panic attacks Gout Urinary retention, seen by urology. Alba catheter has been inserted. Hypochloremic hyponatremia secondary to diuresis Plan Oxygenation is stable, improved during this current prolonged hospitalization Respiratory status is stable. Clinically stable. Thoracentesis of the left lung was done and a total of 800 cc of pleural fluid was aspirated. The fluid is a transudate Continue Lasix 40 mg p.o. twice a day Continue Aldactone Prednisone burst taper Continue bronchodilators, the patient is on DuoNeb updrafts, Perforomist and Pulmicort nebulized treatments and Yupelri Titrate oxygen flow to maintain saturation above 90% Reviewed the CAT scan of the chest. Reviewed the Doppler of the lower extremities. Will discuss the pericardial effusion with cardiology Prognosis extremely poor based on above-mentioned comorbidities. Poor baseline performance and functional status. Unfortunately, not a whole lot can be offered from a pulmonary standpoint. This is a group 3 pulmonary hypertension. Will continue to follow DNR/DNI CODE STATUS Discharge planning is in progress, likely to be discharged today.
--- NOTE | 2024-09-29 20:19 | P.DS ---
Providers Date of admission: 08/30/24 18:27 Attending physician: Axel Elaine MD Consults: 09/03/24 09:13 Consult Physician Routine Consulting Provider: Rafael Allan Consult Reason/Comments: Thickened elongated nails Do you want consulting provider notified?: Yes 09/03/24 10:31 Consult Physician Routine Consulting Provider: Facundo Walker Consult Reason/Comments: recurrent urinary retention Do you want consulting provider notified?: Yes 09/04/24 09:57 Consult Physician Urgent Consulting Provider: Moshe Jon Consult Reason/Comments: chf, hypoxia, airvo, known Do you want consulting provider notified?: Yes 09/19/24 12:07 Consult Physician Routine Consulting Provider: Freda Hernandez Consult Reason/Comments: Persistent leukocytosis Do you want consulting provider notified?: Yes Primary care physician: Mark Guillory [facility] Course: Final Diagnosis -Acute on chronic hypoxic and hypercapnic respiratory failure secondary to COPD exacerbation right-sided heart failure pulmonary hypertension -Small to moderate left-sided pleural effusion patient is s/p thoracentesis of the left on September 06. At that time 800 mL of fluid was removed. -Hyponatremia secondary to excessive diuresis - Acute cor pulmonale - Leukocytosis likely steroid-induced - Congestive heart failure with preserved ejection fraction or diastolic dysfunction - Severe pulmonary hypertension - Trace pneumothorax with status post thoracentesis - Mild to moderate pericardial effusion - Urinary retention patient has a Alba catheter in place Discharge Disposition Patient is stable for discharge home with overall guarded prognosis due to her severe pulmonary hypertension and oxygen requirements. Patient will discharge on 4-5L of oxygen via nasal cannula. Patient has been discharged on oral lasix 40 mg twice daily, spironolactone 50 mg daily. Patient to continue course of oral diflucan for the next 7 days. Patient has been started on sildenafil three times daily as well as farxiga daily. Continues oral prednisone taper. Follow up with pulmonology has an appt with Dr Rosario on october 06. Follow up with Dr Hernandez in 1 week. Follow up with Dr Gregorio in 1 week. Follow up with PCP Dr. Guillory in 1 to 2 days. Repeat blood work in 2 to 3 days. Total time taken in discharge planning greater than 35 minutes. Hospital Course Patient is admitted for multifactorial respiratory failure secondary to CHF COPD with acute exacerbation still having hypoxia patient is on 10 L of oxygen patient has diminished air entry into bilateral lung gupta patient has alpha-1 antitrypsin deficiency leading to severe emphysema usually uses oxygen but patient is on high amount of oxygen at this time patient also has chronic right- sided heart failure with severe pulmonary hypertension and cor pulmonale. Patient had a CT of the chest as we are unable to wean her off oxygen CT did not show any pulmonary embolism but did show some pericardial effusion. Patient was admitted to the hospital with cardiology and pulmonary consultation. Echocardiogram reveals EF 60-65% with severe pulmonary hypertension with an RV systolic pressure of 95 mm. Severely dilated right ventricle with mildly decreased RV systolic function. Severe TR. Moderate pericardial effusion without any evidence of tamponade. Underwent thoracentesis on the left with 800 ml of fluid removed, nonmalignant. Patient has continued on IV lasix, and then was transitioned to oral lasix twice daily. Patient had limited echocardiogram done which reveals severe right ventricular and atrial enlargement. Dilated IVC. Moderate pericardial effusion. She was placed on oral diflucan due to elevated WBC. As patient has been weaned down to oxygen at 5 L nasal cannula she is now a candidate for discharge home. She wishes to return home with home care services and has her friend and her son that are helping around the house. She does need encouragement to get up to the bathroom versus the bedside commode. She is working with physical therapy daily. She will be discharged home with home health care. Please see medication reconciliation for a list of current medications. Thank you for allowing us to participate in the care of this patient. The impression and plan of care has been dictated by Neli Redding, Nurse Practitioner as directed. Dr. Abe MD I have performed a history and physical examination and medical decision making of this patient, discussed the same with the dictator, and agree with the dictators assessment and plan as written, documented as a scribe. Based on total visit time, I have performed more than 50% of this visit. Patient Condition at Discharge: Fair Plan - Discharge Summary Discharge Rx Participant: No New Discharge Prescriptions: New Aspirin 81 mg PO DAILY #30 tab Dapagliflozin Propanediol [Farxiga] 10 mg PO DAILY #30 tab Potassium Chloride ER [K-Dur 20] 20 meq PO BID #60 tab Fluconazole [Diflucan] 100 mg PO DAILY #7 tab Spironolactone [Aldactone] 50 mg PO DAILY #30 tab Furosemide [Lasix] 40 mg PO BID@0900,1600 #60 tab predniSONE 0 mg PO DIRECTED 3 Days #6 tab Sildenafil [Revatio] 20 mg PO TID #30 tab Continue Formoterol Fumarate [Perforomist] 20 mcg INHALATION RT-BID Albuterol Sulfate [Albuterol Sulfate Hfa] 2 puff PO RT-Q4H PRN PRN Reason: Shortness Of Breath Budesonide [Pulmicort] 0.5 mg INHALATION RT-BID Yupelri 175mcg/3ml 175 mcg INHALATION RT-DAILY Escitalopram Oxalate [Lexapro] 10 mg PO HS Albuterol Nebulized [Ventolin Nebulized] 2.5 mg INHALATION RT-QID ALPRAZolam [Xanax] 0.25 - 0.5 mg PO BID PRN PRN Reason: Anxiety Discontinued Losartan-Hctz 50-12.5 mg [Hyzaar 50-12.5] 1 tab PO HS NIFEdipine XL [Procardia Xl] 30 mg PO HS Discharge Medication List ALPRAZolam [Xanax] 0.25 - 0.5 mg PO BID PRN 08/30/24 [History] Albuterol Nebulized [Ventolin Nebulized] 2.5 mg INHALATION RT-QID 08/30/24 [History] Albuterol Sulfate [Albuterol Sulfate Hfa] 2 puff PO RT-Q4H PRN 08/30/24 [History] Budesonide [Pulmicort] 0.5 mg INHALATION RT-BID 08/30/24 [History] Escitalopram Oxalate [Lexapro] 10 mg PO HS 08/30/24 [History] Formoterol Fumarate [Perforomist] 20 mcg INHALATION RT-BID 08/30/24 [History] Yupelri 175mcg/3ml 175 mcg INHALATION RT-DAILY 08/30/24 [History] Aspirin 81 mg PO DAILY #30 tab 09/27/24 [Rx] Dapagliflozin Propanediol [Farxiga] 10 mg PO DAILY #30 tab 09/27/24 [Rx] Fluconazole [Diflucan] 100 mg PO DAILY #7 tab 09/27/24 [Rx] Furosemide [Lasix] 40 mg PO BID@0900,1600 #60 tab 09/27/24 [Rx] Potassium Chloride ER [K-Dur 20] 20 meq PO BID #60 tab 09/27/24 [Rx] Sildenafil [Revatio] 20 mg PO TID #30 tab 09/27/24 [Rx] Spironolactone [Aldactone] 50 mg PO DAILY #30 tab 09/27/24 [Rx] predniSONE 0 mg PO DIRECTED 3 Days #6 tab 09/27/24 [Rx] Follow up Appointment(s)/Referral(s): Rafa Gregorio MD [STAFF PHYSICIAN] - 1 Week (Office will call you with follow up appointment ) [facility] [NON-STAFF] - 1 Week Mark Guillory DO [Primary Care Provider] - 1-2 days Freda Hernandez MD [STAFF PHYSICIAN] - 10/04/24 4:00 pm Moshe Jon MD [STAFF PHYSICIAN] - 10/06/24 9:00 am Ambulatory/Diagnostic Orders: Basic Metabolic Panel [LAB.AMB] Time Frame: 3 Days, Location: None Selected Complete Blood Count w/diff [LAB.AMB] Location: None Selected Patient Instructions/Handouts: Heart Failure (DC), COPD (Chronic Obstructive Pulmonary Disease) (DC) Activity/Diet/Wound Care/Special Instructions: Continue oral prednisone taper for 3 more days Continue oral diflucan for 7 days Follow up with patient observer Dr Jon in the office in 1 week Follow up with outdoor adventure instructor Dr Gregorio in 1 week Follow up with Dr Hernandez with ID in the office in 1 week Need to repeat blood work in 2 to 3 days Continue zinc barrier cream to the sacral wound can apply twice daily if you are not using the optifoam dressing You can apply barrier cream and apply a sacral optifoam dressing and this can be changed every 3 days or as needed for soiling. Continue the 1200 mL fluid restriction meaning you should have more than 1.2 L or 1200 ml of fluid in a 24 hour period. Weigh your self at the same time every day; if you gain more than 2 to 3 lbs in 1-2 days or 7 lbs in a week notify your team of providers or come back in to the ER for evaluation. Discharge Disposition: HOME WITH HOME HEALTH SERVICES
== END 2024-09-27 15:10 | disposition home health service (06) | DRG 291 ==
LOC: EC 14:23 → 3SCARD 18:27
PROVIDERS: ADMIT Internal Medicine; ATTEND Internal Medicine
PROC: 0W9B3ZZ Drainage of Left Pleural Cavity, Percutaneous Approach (ICD-10-PCS; principal; 2024-09-06)
PROC: 0HBRXZZ Excision of Toe Nail, External Approach (ICD-10-PCS; 2024-09-15)
DX: I11.0 Hypertensive heart disease with heart failure (principal); I26.09 Other pulmonary embolism with acute cor pulmonale; I50.33 Acute on chronic diastolic (congestive) heart failure; J96.21 Acute and chronic respiratory failure with hypoxia; J96.22 Acute and chronic respiratory failure with hypercapnia; I31.39 Other pericardial effusion (noninflammatory); E87.1 Hypo-osmolality and hyponatremia; E87.20 Acidosis, unspecified; J45.901 Unspecified asthma with (acute) exacerbation; J91.8 Pleural effusion in other conditions classified elsewhere; I27.21 Secondary pulmonary arterial hypertension; F32.A Depression, unspecified; I07.1 Rheumatic tricuspid insufficiency; I73.9 Peripheral vascular disease, unspecified; J44.1 Chronic obstructive pulmonary disease with (acute) exacerbation; J44.0 Chronic obstructive pulmonary disease with (acute) lower respiratory infection; J43.9 Emphysema, unspecified; E88.01 Alpha-1-antitrypsin deficiency; I50.82 Biventricular heart failure; B35.1 Tinea unguium; Z99.81 Dependence on supplemental oxygen; Z87.891 Personal history of nicotine dependence; Z79.899 Other long term (current) drug therapy; Z79.51 Long term (current) use of inhaled steroids; F41.9 Anxiety disorder, unspecified; T50.2X5A Adverse effect of carbonic-anhydrase inhibitors, benzothiadiazides and other diuretics, initial encounter; D72.828 Other elevated white blood cell count; T38.0X5A Adverse effect of glucocorticoids and synthetic analogues, initial encounter; E87.6 Hypokalemia; L60.2 Onychogryphosis; Z66 Do not resuscitate; Z88.0 Allergy status to penicillin; R33.9 Retention of urine, unspecified; R53.81 Other malaise
CPT/HCPCS: 36415; 36600; 71045; 71046; 71275; 76604; 80048; 80053; 81001; 82533; 82805; 82945; 83605; 83615; 83735; 83880; 84132; 84145; 84157; 84484; 85025; 85379; 85610; 85652; 85730; 86140; 87040; 87070; 87075; 87205; 87636; 88108; 88305; 89050; 93005; 93306; 93308; 93970; 94640; 94760; 96374; 96375; 99285